=== PATIENT | male | born 1960 ===

== ENCOUNTER 2021-07-27 02:18 | Inpatient (IN) | payer OTHER, MEDICAID, SELFPAY ==
[2021-07-27] VITALS (15 sets, daily range): BP systolic 115–186; BP diastolic 52–92; PULSE 72–112; RESP 16–30; TEMP 36.4–37.2; O2SAT 93–98; BMI 27.6
--- NOTE | 2021-07-27 | ECG_ITS ---
Test Reason : CHEST PAIN Blood Pressure : / mmHG Vent. Rate : 098 BPM Atrial Rate : 098 BPM P-R Int : 198 ms QRS Dur : 086 ms QT Int : 388 ms P-R-T Axes : 066 060 039 degrees QTc Int : 495 ms Normal sinus rhythm Nonspecific ST abnormality Prolonged QT Abnormal ECG When compared with ECG of 27-JUL-2021 09:31, ST no longer depressed in Inferior leads ST no longer depressed in Anterior leads Referred By: Jasmin Vieyra Electronically Signed By:ROCIO RICE MD
--- NOTE | 2021-07-27 | ECG_ITS ---
Test Reason : RHYTHM CHANGE Blood Pressure : / mmHG Vent. Rate : 111 BPM Atrial Rate : 111 BPM P-R Int : 200 ms QRS Dur : 094 ms QT Int : 378 ms P-R-T Axes : 083 061 044 degrees QTc Int : 514 ms Sinus tachycardia Nonspecific ST abnormality Abnormal ECG When compared with ECG of 27-JUL-2021 03:40, QRS axis Shifted left ST now depressed in Inferior leads ST now depressed in Anterior leads T wave inversion no longer evident in Lateral leads Referred By: Dao Nash Electronically Signed By:ROCIO RICE MD
--- NOTE | ~2021-07-27 | XR_ITS ---
EXAMINATION: XR CHEST CLINICAL INFORMATION: Shortness of breath and cough. COMPARISON: None TECHNIQUE: Frontal view of the chest was obtained. FINDINGS: Cardiac leads overlie the chest. The lungs are well expanded. There is no focal consolidation, edema, or effusion. No pneumothorax. The cardiomediastinal silhouette is within normal limits. No acute osseous abnormality. XR/XR chest 1V IMPRESSION: No acute pulmonary finding.
--- NOTE | ~2021-07-27 | CT_ITS ---
EXAMINATION: CT ANGIOGRAM OF THE CHEST WITH AND WITHOUT CONTRAST (CT PULMONARY ANGIOGRAM FOR PE) CLINICAL INFORMATION: Reason for Exam pain, hypoxia, shortness of breath COMPARISON: Chest x-ray from earlier the same day TECHNIQUE: Prior to contrast administration, noncontrast localization images were obtained. Subsequently, multidetector volumetric imaging was performed from the thoracic inlet to below the diaphragms following the administration of 65 mL Omnipaque 350 intravenous contrast. No contrast reaction reported Sagittal, coronal, and MIP oblique sagittal reformatted images were obtained on the CT workstation, uploaded to PACS, and reviewed. This CT examination was performed using dose optimization techniques as appropriate, variously including the following: *Automated exposure control *Adjustment of mA and/or kV according to patient size (this includes techniques or standardized protocols for targeted exams where dose is matched to indication/reason for exam; i.e. extremities or head) *Use of iterative reconstruction technique Total exam dose-length product 403 mGy-cm FINDINGS: QUALITY OF STUDY/CONTRAST BOLUS: Satisfactory. PULMONARY ARTERIES: No central or segmental pulmonary emboli. Evaluation of the smaller segmental and subsegmental pulmonary arteries is limited due to respiratory motion artifact. No pulmonary embolism is seen. THORACIC AORTA: No aneurysm or dissection. LUNG: Evaluation of the lungs is limited due to artifact from respiratory motion. There is a 8 mm peripheral or subpleural density in the lateral costophrenic sulcus of the right lower lobe questionable for atelectasis versus nodule. PLEURA: No pleural effusion or pneumothorax. MEDIASTINUM: Normal heart size. No pericardial effusion. No hilar or mediastinal lymphadenopathy. No evidence of septal bowing or right heart strain. CHEST WALL/AXILLA: No axillary or internal mammary lymphadenopathy. OSSEOUS STRUCTURES: No acute or suspicious osseous abnormality. UPPER ABDOMEN: Unremarkable. No reflux of contrast into the hepatic veins to suggest elevated right heart pressures. CT/CT angio chest PE protocol IMPRESSION: Limited exam due to artifact from respiratory motion. No large or central pulmonary embolism seen. 8 mm peripheral or subpleural density in the lateral costophrenic sulcus of the right lower lobe, question pulmonary nodule versus atelectasis. Chest CT follow-up should be considered in 6-12 months. VTE: negative
--- NOTE | 2021-07-27 02:53 | ECG_ITS ---
Test Reason : SOB Blood Pressure : / mmHG Vent. Rate : 077 BPM Atrial Rate : 077 BPM P-R Int : 182 ms QRS Dur : 078 ms QT Int : 416 ms P-R-T Axes : 103 114 132 degrees QTc Int : 470 ms Suspect limb lead reversal, interpretation assumes no reversal Poor data quality Normal sinus rhythm Lateral infarct , age undetermined Abnormal ECG No previous ECGs available Please repeat EKG Referred By: Generic ED Physician Electronically Signed By:ROCIO RICE MD
[2021-07-27 04:03] LABS: Basophils Percent Auto 0.1 % (0-2); Eosinophils Absolute Auto 0.2 X10*3/uL (0.0-0.4); Eosinophils Percent Auto 1.9 % (0-4); Hematocrit 42.1 % (42.0-52.0); Hemoglobin 14.3 g/dl (14.0-18.0); Imm Gran Pct Auto 0.9 % (0.0-0.4); Lymphocytes Absolute Auto 1.5 X10*3/uL (1.2-4.9); Lymphocytes Percent Auto 14.5 % (20-40); MANUAL DIFF FLAG NO; Mean Corpuscular Hemoglobin 30.6 pg (27.0-33.0); Mean Platelet Volume 10.2 fL (9.4-12.4); Monocytes Absolute Auto 0.8 X10*3/uL (0.1-1.2); Monocytes Percent Auto 7.2 % (2-11); Neutrophils Percent Auto 75.4 % (45-73); Platelet Count 173 X10*3/uL (160-400); Red Blood Count 4.68 X10*6/uL (4.60-5.80); White Blood Count 10.6 X10*3/uL (4.8-10.8)
[2021-07-27] MEDS: Meclizine HCl 25 MG TABLET PO (04:03)
[2021-07-27 04:17] LABS: Anion Gap 12 (12-20); Blood Urea Nitrogen 21 mg/dL (9-16); Calcium 9.5 mg/dL (8.4-10.2); Carbon Dioxide 26 mmol/L (22-29); Chloride 108 mmol/L (96-108); Creatinine Clr Calc Pharmacy 75.6; Estimated Glomerular Filt Rate > 60; Glucose Random 107 mg/dL (60-115); Potassium 4.7 mmol/L (3.3-5.1); Sodium 141 mmol/L (135-145)
[2021-07-27 04:23] LABS: COVID-19 Test Negative (Negative); IDNOW Serial# 9DD0AD1C
[2021-07-27 04:24] LABS: Troponin-I High Sensitivity 4.2 ng/L (<3.5-35.0)
--- NOTE | 2021-07-27 04:37 | PC.NURSE ---
PT requiring aircraft fuselage framer due to deafness. PT complaining on dizziness, cough, and SOB. PT came into room, unable to sit in bed due to difficulty breathing. PT position of comfort is standing and tripoding over the side of the bed. PT has bilateral wheezing. PT found to be satting at 87% on RA. PT placed on O2 at 4L/min via NC. O2 sat increased to 95%. ED provider informed of PT condition. RT called to bed side.
--- NOTE | 2021-07-27 04:52 | ED_ITS ---
HPI - General Adult General Chief complaint: Dizziness Stated complaint: Cough Time Seen by Provider: 07/27/21 04:35 Source: patient Mode of arrival: EMS Limitations: language barrier (Patient is deaf, instructional design consultant via iPad was used) History of Present Illness HPI narrative: 61-year-old male who presents emergency department for evaluation of dizziness, shortness of breath and cough. The information was very difficult to obtain from the patient since he uses sign language and did not seem to be answering the questions were signed to him by the instructional design consultant. The patient developed a cough last night which is nonproductive. He also developed shortness of breath and dyspnea on exertion last night which got progressively worse. He states that he was feeling dizzy and lightheaded as well. He denied fever or chills. He denied myalgias or arthralgias. He is complaining of severe back pain but cannot localize where his pain is. He cannot sit or lie on the stretcher secondary to his back pain. He insists on standing on the side of the bed holding onto the rail of the stretcher and will not get in the bed. Whenever we try to get him in bed he becomes very agitated. Related Data Allergies Allergy/AdvReac Type Severity Reaction Status Date / Time No Known Allergies Allergy Verified 07/27/21 04:49 Review of Systems Review of Systems: Yes all other systems are reviewed and are negative [facility] Past Medical History [facility] Narrative: Past medical history: None. Past surgical history: None. Social history: He denies tobacco, alcohol and drug use. Physical Exam Vital Signs: Vital Signs: Last Vital Signs Temp 98.1 F 07/27/21 04:27 Pulse 99 07/27/21 07:39 Resp 16 07/27/21 07:39 BP 173/80 H 07/27/21 06:26 Pulse Ox 96 07/27/21 06:26 BMI result Body Mass Index 27.6 Const: Other: Awake, alert, male patient who is standing on the side of the bed, holding onto the railing, appears to be in [id number] respiratory distress, is having difficulty communicating with the instructional design consultant HENMT: Head: Yes normal to inspection, Yes normocephalic and Yes atraumatic Ears: external ears normal General nose exam: Normal external nose present Face and sinus: Yes normal facial exam Mouth: Normal oral and palatal mucosa present Throat: Yes posterior oropharynx normal Eyes: General: appearance normal, both eyes and all related structures Pup ils: Equal, round and reactive pupils present Neck: Neck: Yes normal visual inspection, Yes no lymphadenopathy, Yes trachea midline and Yes supple Chest: Chest palpation & inspection: normal inspection of the chest and normal palpation of entire chest wall Resp: Other: Patient appears to be in [id number]-[id number] respiratory distress, lungs revealed diffuse wheezing with no rales or rhonchi breath sounds are symme tric bilaterally Cardio: Rate: regular rate Rhythm: regular rhythm Heart sounds: S1 normal heart sound present, S2 normal heart sound present and no murmurs GI: Inspection: Yes normal to inspection Palpation (GI): Soft to palpation, nontender and no guarding Auscultation: normal bowel sounds Back/Spine/Pelvis: Other: Patient has diffuse tenderness palpation of his paraspinal muscles in the lumbar sacral area bilaterally Skin: General skin exam: no rashes or lesions noted Neuro: Cranial nerves: Yes CN's II-XII intact bilaterally and Yes Equal, round and reactive pupils present Motor exam (neuro): 5/5 motor strength present throughout Extrem: General: Yes normal to inspection Psych: Other: Patient is oriented to person, he does answer some questions appropriately with the instructional design consultant but does seem to have difficulty communicating with the product owner. Course Course Course Narrative: 61-year-old male patient who is deaf and reports no past medical history through the instructional design consultant presents emergency depar tme for evaluation of cough shortness of breath and dyspnea on exertion that started last night. Also complained of dizziness. Initial and repeat vital signs revealed elevated blood pressure of 173/92 and 186/69, respiratory rate varied from 20-24 breaths per minute, O2 saturation was 94-95% on room air. Patient was afebrile. Lung exam revealed diffuse wheezing with symmetric breath sounds. He also had tenderness palpation of his paraspinal muscles in the lumbar sacral area bilaterally. I ordered an albuterol 2.5 mg per 3 mL nebulizer x1. 0502: Laboratory evaluation revealed a normal CBC, comprehensive metabolic panel revealed an elevated BUN of 21. Troponin was detectable but not elevated at 4.2. COVID-19 was negative. Twelve EKG was done in a sitting position since the patient could not lie down on the stretcher, there was no significant ST segment elevation or depression. The patient did seem to improve after receiving an albuterol nebulizer. 0725: I re-evaluated the patient using the fire adjuster. The patient states he did feel better but his breathing difficulties returning. On re-evaluation the patient is wheezing again. He was ordered to get albuterol 5 mg nebulized over 1 hour. The radiologist interpreted the chest x-ray is no acute disease, and my review of the x-ray I am concerned that he may have a left lower lobe infiltrate therefore I will treat him with ceftriaxone 1 g IV and azithromycin 500 mg IV. I will discuss admission with the covering hospitalist. 0804: I did discuss the patient's presentation with the covering hospitalist, Dr. Land and the patient will be admitted to the hospital service for further treatment. Patient's initial troponin was detectable but not elevated, I will repeat a 3 hour troponin now. Medical Decision Making Lab Data Result diagrams: 07/27/21 03:54 07/27/21 03:54 Labs: Lab Results 07/27/21 07/27/21 07/27/21 Range/Units 03:46 03:54 03:54 WBC 10.6 (4.8-10.8) X10*3/uL RBC 4.68 (4.60-5.80) X10*6/uL Hgb 14.3 (14.0-18.0) g/dl Hct 42.1 (42.0-52.0) % MCV 90.0 (80.0-98.0) fL MCH 30.6 (27.0-33.0) pg MCHC 34.0 (31.0-36.0) g/dl RDW 13.0 (11.0-16.0) % Plt Count 173 (160-400) X10*3/uL MPV 10.2 (9.4-12.4) fL Immature Gran % (Auto) 0.9 H (0.0-0.4) % Neut % (Auto) 75.4 H (45-73) % Lymph % (Auto) 14.5 L (20-40) % Garrett % (Auto) 7.2 (2-11) % Eos % (Auto) 1.9 (0-4) % Baso % (Auto) 0.1 (0-2) % Lymph # (Auto) 1.5 (1.2-4.9) X10*3/uL Garrett # (Auto) 0.8 (0.1-1.2) X10*3/uL Eos # (Auto) 0.2 (0.0-0.4) X10*3/uL Baso # (Auto) 0.0 (0.0-0.2) X10*3/uL Abs Immat Gran (auto) 0.10 H (0.00-0.03) X10*3/uL Absolute Neuts (auto) 8.0 (2.0-8.3) x10*3/uL Absolute Nucleated RBC 0.000 (0.0-0.012) X10*3/uL Nucleated RBC % (auto) 0.0 (0.0-0.2) /100WBC VBG pH (7.32-7.43) VBG pCO2 mmHg VBG pO2 mmHg VBG HCO3 (22-26) mmol/L VBG O2 Saturation % VBG Base Excess mmol/L Sodium 141 (135-145) mmol/L Potassium 4.7 (3.3-5.1) mmol/L Chloride 108 (96-108) mmol/L Carbon Dioxide 26 (22-29) mmol/L Anion Gap 12 (12-20) BUN 21 H (9-16) mg/dL Creatinine 1.00 (0.5-1.4) mg/dL Estim Creat Clear Calc 75.6 Estimated GFR > 60 Random Glucose 107 (60-115) mg/dL Lactic Acid (0.5-2.0) mmol/L Calcium 9.5 (8.4-10.2) mg/dL Troponin I High Sens (<3.5-35.0) ng/L B-Natriuretic Peptide (<100) pg/mL COVID-19 ([facility]) Negative (Negative) COVID-19 Clin Com See Note 07/27/21 07/27/21 07/27/21 Range/Units 03:54 04:54 05:02 WBC (4.8-10.8) X10*3/uL RBC (4.60-5.80) X10*6/uL Hgb (14.0-18.0) g/dl Hct (42.0-52.0) % MCV (80.0-98.0) fL MCH (27.0-33.0) pg MCHC (31.0-36.0) g/dl RDW (11.0-16.0) % Plt Count (160-400) X10*3/uL MPV (9.4-12.4) fL Immature Gran % (Auto) (0.0-0.4) % Neut % (Auto) (45-73) % Lymph % (Auto) (20-40) % Garrett % (Auto) (2-11) % Eos % (Auto) (0-4) % Baso % (Auto) (0-2) % Lymph # (Auto) (1.2-4.9) X10*3/uL Garrett # (Auto) (0.1-1.2) X10*3/uL Eos # (Auto) (0.0-0.4) X10*3/uL Baso # (Auto) (0.0-0.2) X10*3/uL Abs Immat Gran (auto) (0.00-0.03) X10*3/uL Absolute Neuts (auto) (2.0-8.3) x10*3/uL Absolute Nucleated RBC (0.0-0.012) X10*3/uL Nucleated RBC % (auto) (0.0-0.2) /100WBC VBG pH (7.32-7.43) VBG pCO2 mmHg VBG pO2 mmHg VBG HCO3 (22-26) mmol/L VBG O2 Saturation % VBG Base Excess mmol/L Sodium (135-145) mmol/L Potassium (3.3-5.1) mmol/L Chloride (96-108) mmol/L Carbon Dioxide (22-29) mmol/L Anion Gap (12-20) BUN (9-16) mg/dL Creatinine (0.5-1.4) mg/dL Estim Creat Clear Calc Estimated GFR Random Glucose (60-115) mg/dL Lactic Acid 1.2 (0.5-2.0) mmol/L Calcium (8.4-10.2) mg/dL Troponin I High Sens 4.2 (<3.5-35.0) ng/L B-Natriuretic Peptide 36 (<100) pg/mL COVID-19 ([facility]) (Negative) COVID-19 Clin Com 07/27/21 Range/Units 06:25 WBC (4.8-10.8) X10*3/uL RBC (4.60-5.80) X10*6/uL Hgb (14.0-18.0) g/dl Hct (42.0-52.0) % MCV (80.0-98.0) fL MCH (27.0-33.0) pg MCHC (31.0-36.0) g/dl RDW (11.0-16.0) % Plt Count (160-400) X10*3/uL MPV (9.4-12.4) fL Immature Gran % (Auto) (0.0-0.4) % Neut % (Auto) (45-73) % Lymph % (Auto) (20-40) % Garrett % (Auto) (2-11) % Eos % (Auto) (0-4) % Baso % (Auto) (0-2) % Lymph # (Auto) (1.2-4.9) X10*3/uL Garrett # (Auto) (0.1-1.2) X10*3/uL Eos # (Auto) (0.0-0.4) X10*3/uL Baso # (Auto) (0.0-0.2) X10*3/uL Abs Immat Gran (auto) (0.00-0.03) X10*3/uL Absolute Neuts (auto) (2.0-8.3) x10*3/uL Absolute Nucleated RBC (0.0-0.012) X10*3/uL Nucleated RBC % (auto) (0.0-0.2) /100WBC VBG pH 7.35 (7.32-7.43) VBG pCO2 43 mmHg VBG pO2 60 mmHg VBG HCO3 24 (22-26) mmol/L VBG O2 Saturation 85.0 % VBG Base Excess -1.2 mmol/L Sodium (135-145) mmol/L Potassium (3.3-5.1) mmol/L Chloride (96-108) mmol/L Carbon Dioxide (22-29) mmol/L Anion Gap (12-20) BUN (9-16) mg/dL Creatinine (0.5-1.4) mg/dL Estim Creat Clear Calc Estimated GFR Random Glucose (60-115) mg/dL Lactic Acid (0.5-2.0) mmol/L Calcium (8.4-10.2) mg/dL Troponin I High Sens (<3.5-35.0) ng/L B-Natriuretic Peptide (<100) pg/mL COVID-19 ([facility]) (Negative) COVID-19 Clin Com ECG Data Attestation: I personally reviewed and interpreted this ECG as follows: Interpretation: Normal sinus rhythm with a rate of 77, normal [place], QRS and QTC durations, inverted T-wave in lead 1 and aVL, no ST segment elevation, no ST segment depression, no PACs, no PVCs, there is a wandering baseline which makes the EKG interpretation slightly difficult. There is no old EKG for comparison. Critical Care Time Critical Care Time Critical Care Time: Yes Total Critical Care Time: 35 Attestation: Critical Care: The patient was critically ill with a high probability of imminent or life threatening deterioration. I spent greater than 30 minutes of discontinuous time evaluating the patient,delivering critical care at the bedside, discussing and evaluating pertinent data with consultants. Critical care time does not include time spent performing separately billable procedures or teaching. Total time spent performing critical care was 35 minutes. Discharge Plan Discharge Clinical Impression: Pneumonia, Acute bronchospasm Patient Disposition: Admitted As Inpatient
[2021-07-27] MEDS: Albuterol Sulfate (0.083%) 2.5 MG/3 ML VIAL.NEB INHALE (04:57)
[2021-07-27] MEDS: methylPREDNISolone Sod Succ 125 MG/2 ML VIAL IVPUSH (05:11)
[2021-07-27] MEDS: Ketorolac Tromethamine 30 MG/ML VIAL 15 MG IVPUSH (05:11)
[2021-07-27 05:19] LABS: Lactic Acid 1.2 mmol/L (0.5-2.0)
[2021-07-27 05:29] LABS: B Type Natriuretic Peptide 36 pg/mL (<100)
[2021-07-27 06:31] LABS: Venous Blood Gas Refer to POC result
[2021-07-27 06:32] LABS: VBG Base Excess -1.2 mmol/L; VBG HCO3 24 mmol/L (22-26); VBG pCO2 43 mmHg; VBG pH 7.35 (7.32-7.43); VBG pO2 60 mmHg
--- NOTE | 2021-07-27 06:32 | PC.NURSE ---
This RN is speaking with the PT through mapping specialist and PT stated that he takes no daily meds, has no past medical history, and does not have any allergies.
[2021-07-27] MEDS: Albuterol/Iprat 2.5/0.5MG 3 ML AMPUL.NEB INHALE (06:38)
[2021-07-27] MEDS: Albuterol Sulfate (0.083%) 2.5 MG/3 ML VIAL.NEB 7.5 MG INHALE (07:39)
[2021-07-27] MEDS: cefTRIAXone sodium 1 GM in 0.9 % Sodium Chloride 50 ML IV (08:17)
[2021-07-27 08:55] LABS: Troponin-I High Sensitivity 5.5 ng/L (<3.5-35.0)
--- NOTE | 2021-07-27 09:24 | PM.IMHP ---
History of Present Illness Date of Service: 07/27/21 Chief Complaint: Cough, shortness of breath, pain This is a 61 yo deaf M (uses [place] Sign language, iPad used for translation purposes) who presents to [facility] ED with complaints of shortness of breath, coughing and pleuritic (bilateral) chest pain worsened with cough and deep inspiration, which began on the evening prior to presentation. He reports that he was in his usual state of health during the day time but began feeling the symptoms which progressed significantly and so he came to the ED. He reports no fevers or chills. He reports no sick contacts -- COVID or otherwise. He reports being vaccinated for COVID (2 shots + the booster). He reports some abdominal pain which began after his cough spells and now he endorses severe sore throat. He denies any prior such symptoms. He reports that he is a life long non-smoker. Upon arrival to the ED, he was noted to have diffuse wheezing and tachycardia. His oxygen saturation dropped to 87% on RA. He was treated with multiple continuous nebulizer Rx, IV solu-medrol, IV toradol. His chest XR did not show any acute findings, but the patient did not have resolution of his symptoms. The possibility of a LLL infiltrate was noted by the ED provider and he was subsequently given IV Rocephin/Zithromax and admission was requested. Review of Systems Review of Systems: negative except [facility] Medical History (Updated 07/27/21 @ 12:00 by Dao Nash MD) No pertinent past medical history Family History (Updated 07/27/21 @ 09:30 by Dao Nash MD) Other No known health problems Surgical History (Updated 07/27/21 @ 09:30 by Dao Nash MD) H/O cervical spine surgery Social History (Updated 07/27/21 @ 09:30 by Dao Nash MD) Alcohol intake: never Patient Tobacco Use Status: Never used Tobacco Use of substances other than those prescribed or required for medical reasons: No Advance Directives: No Advance Directives Information Provided: No Meds Allergies Allergy/AdvReac Type Severity Reaction Status Date / Time No Known Allergies Allergy Verified 07/27/21 04:49 Active Medications: Current Medications Acetaminophen (Acetaminophen 325 Mg Tablet) 650 mg PO Q6H PRN PRN Reason: Pain, Mild (Pain Scale 1-3) Enoxaparin Sodium (Enoxaparin Sodium 40 Mg/0.4 Ml Syringe) 40 mg SUBCUT Q24H DAVID Ondansetron HCl (Ondansetron Hcl 4 Mg/2 Ml Vial) 4 mg IVPUSH Q8H PRN PRN Reason: Nausea and Vomiting Sodium Chloride (0.9 % Sodium Chloride Flush 3 Ml Syringe) 3 ml IVFLUSH QSHIFT DAVID Physical Exam Vital Signs and Narrative: Vital Signs: Last Vital Signs Temp 98.1 F 07/27/21 04:27 Pulse 112 H 07/27/21 08:21 Resp 18 07/27/21 08:21 BP 173/80 H 07/27/21 06:26 Pulse Ox 96 07/27/21 08:21 BMI result Body Mass Index 27.6 Const: Other: Constitutional - Awake and Alert, appears to be in pain Eyes - PERRLA, EOMI Cardiovascular - S1S2, tachycardic (appears sinus on the monitor) in the 120s, No edema Respiratory - No tachypnea, scattered wheezing with diminished air entry bilaterally Gastrointestinal - NT / ND; +BS; No rebound or guarding - No CVA tenderness Extremities - no calf tenderness bilaterally, no swelling Musculoskeletal - Normal inspection, normal ROM Skin - Warm/Dry Neurological - Alert & oriented x3, No focal deficit Psychological - Appropriate affect Results Labs CBC and Chem 7: 07/27/21 03:54 07/27/21 03:54 Labs: Laboratory Results - last 24 hr 07/27/21 07/27/21 07/27/21 03:46 03:54 03:54 MCV 90.0 MCH 30.6 MCHC 34.0 RDW 13.0 Plt Count 173 MPV 10.2 Immature Gran % (Auto) 0.9 H Neut % (Auto) 75.4 H Lymph % (Auto) 14.5 L [place] % (Auto) 7.2 Eos % (Auto) 1.9 Baso % (Auto) 0.1 Lymph # (Auto) 1.5 [place] # (Auto) 0.8 Eos # (Auto) 0.2 Baso # (Auto) 0.0 Abs Immat Gran (auto) 0.10 H Absolute Neuts (auto) 8.0 Absolute Nucleated RBC 0.000 Nucleated RBC % (auto) 0.0 VBG pH VBG pCO2 VBG pO2 VBG HCO3 VBG O2 Saturation VBG Base Excess Anion Gap 12 Estim Creat Clear Calc 75.6 Estimated GFR > 60 Random Glucose 107 Lactic Acid Calcium 9.5 Troponin I High Sens B-Natriuretic Peptide COVID-19 ([facility]) Negative COVID-19 Clin Com See Note 07/27/21 07/27/21 07/27/21 03:54 04:54 05:02 MCV MCH MCHC RDW Plt Count MPV Immature Gran % (Auto) Neut % (Auto) Lymph % (Auto) [place] % (Auto) Eos % (Auto) Baso % (Auto) Lymph # (Auto) [place] # (Auto) Eos # (Auto) Baso # (Auto) Abs Immat Gran (auto) Absolute Neuts (auto) Absolute Nucleated RBC Nucleated RBC % (auto) VBG pH VBG pCO2 VBG pO2 VBG HCO3 VBG O2 Saturation VBG Base Excess Anion Gap Estim Creat Clear Calc Estimated GFR Random Glucose Lactic Acid 1.2 Calcium Troponin I High Sens 4.2 B-Natriuretic Peptide 36 COVID-19 ([facility]) COVID-[employer] Com 07/27/21 07/27/21 06:25 08:23 MCV MCH MCHC RDW Plt Count MPV Immature Gran % (Auto) Neut % (Auto) Lymph % (Auto) [place] % (Auto) Eos % (Auto) Baso % (Auto) Lymph # (Auto) [place] # (Auto) Eos # (Auto) Baso # (Auto) Abs Immat Gran (auto) Absolute Neuts (auto) Absolute Nucleated RBC Nucleated RBC % (auto) VBG pH 7.35 VBG pCO2 43 VBG pO2 60 VBG HCO3 24 VBG O2 Saturation 85.0 VBG Base Excess -1.2 Anion Gap Estim Creat Clear Calc Estimated GFR Random Glucose Lactic Acid Calcium Troponin I High Sens 5.5 B-Natriuretic Peptide COVID-19 ([facility]) COVID-19 [employer] Com Imaging Radiologist's Impressions: Impressions Chest X-Ray 07/27/21 05:26 IMPRESSION: No acute pulmonary finding. Assessment and Plan (1) Acute respiratory failure with hypoxia: Status: Acute This is a 61 yo M with no significant PMH who presents to [facility] ED with respiratory complaints which began on the day prior to arrival. He is noted to be tachycardic, hypoxic with scattered wheezing. He will be admitted for further work up and treatment. 1. Acute Respiratory Failure with hypoxia Saturations down to 87% on Room Air in the ED; now in the 90s on supplemental O2 via NC cause not entire clear -- work up started. Will check CTA chest -- rule out PE and see if any findings to suggest pneumonia --> negative Will start IV solu-medrol 40mg BID, scheduled updrafts (will use xopenex in light of tachycardia). Check respiratory pathogen panel. 2. Possible pneumonia CXR inconclusive, CTA poor quality, but no major infiltrates identified hold off on antibiotics for now Nodule noted on CT -- repeat CT recommended in 6-12 months 3. Plueritic chest pain pain control and look for the cause as above 4. Abnormal EKG ST/T wave depressions in the anterior/inferior leads; no prior EKG for comparison. He denies anginal type of chest pain HS trop-I negative x 2; Will check 2d echo and get cardiology consult Full Code Reports his sister as healthcare proxy Quality Stroke Does the patient have a stroke diagnosis?: No VTE Prior VTE?: No VTE Risk Level:: Medical - moderate - high VTE Device Contraindication: Treatment Not Indicated VTE Drug Contraindication: N/A - Med Ordered
[2021-07-27 09:46] LABS: Adenovirus PCR Not Detected (Not Detect.); Bordetella parapertussis PCR Not Detected (Not Detect.); Bordetella pertussis PCR Not Detected (Not Detect.); Chlamydia pneumoniae PCR Not Detected (Not Detect.); Coronavirus 229E PCR Not Detected (Not Detect.); Coronavirus HKU1 PCR Not Detected (Not Detect.); Coronavirus NL63 PCR Not Detected (Not Detect.); Coronavirus OC43 PCR Not Detected (Not Detect.); Human metapneumovirus PCR Not Detected (Not Detect.); Influenza A PCR Not Detected (Not Detect.); Influenza B PCR Not Detected (Not Detect.); Mycoplasma pneumoniae PCR Not Detected (Not Detect.); Parainfluenza 1 PCR Not Detected (Not Detect.); Parainfluenza 2 PCR Not Detected (Not Detect.); Parainfluenza 3 PCR Not Detected (Not Detect.); Parainfluenza 4 PCR Not Detected (Not Detect.); RSV PCR Not Detected (Not Detect.); SARS-CoV-2 PCR Not Detected (Not Detect.)
--- NOTE | 2021-07-27 11:00 | CA_ITS ---
Transthoracic Echocardiogram Patient (Last, First, Middle): Jacob Angelse, Gender: Male Date of : 1960 Age: 61 Procedure Date: 07/27/2021 Procedure Type: Transthoracic Echocardiogram Location: ER Height: 175.26 cm Weight: 84.82 kg BSA: 2.01 m2 Heart Rate: bpm BP: 129 / 60 mmHg Equal Opportunity Director: Referring MD: Dao Nash MD Vocational Education Professional: Иван Lindquist MD Symptoms: abnormal ekg Study Quality: Fair ECG Rhythm: Sinus Conclusions: - 1. Hyperdynamic LV systolic function with LVEF of greater than 70% 2. Cardiac valves not well visualized with normal cardiac valvular Doppler 3. No gross pericardial effusion Findings Left Ventricle Normal left ventricular cavity size. There is normal left ventricular wall thickness. The left ventricular systolic function is hyperdynamic. The visually estimated ejection fraction is >70%. Diastolic function is indeterminate on the basis of available data. possible apical variant of hypertrophic cardiomyopathy Right Ventricle Normal right ventricular cavity size. Atria The left atrium is normal in size. Interatrial shunt cannot be excluded. The right atrium was not well visualized. Aortic Valve The aortic valve was not well visualized. There is no aortic valve stenosis. There is no aortic valve regurgitation. Mitral Valve The mitral valve was not well visualized. There is trace mitral valve regurgitation. There is no mitral valve stenosis. Pulmonic Valve The pulmonic valve was not well visualized. Tricuspid Valve The tricuspid valve was not well visualized. Tricuspid regurgitation envelope is inadequate for calculation of right ventricular systolic pressure. Great Vessels All visible segments of the aorta are normal in size. The pulmonary artery was not well visualized. Venous The inferior vena cava is normal in size and collapses greater than 50% with inspiration. Pericardium/Pleural There is no evidence of pericardial effusion. Prior Study Comparison No prior study available for comparison. Recommendations, Care & Conclusions Recommend contrast in the future to improve endocardial definition. Measurements 2D Linear Measurements IVSd: 1.12 0.6-0.9/0.6-1.0 cm LVIDd: 4.09 3.9-5.3/4.2-5.9 cm LVIDd Index: 2.03 2.4-3.2/2.2-3.1 cm/m2 LVIDs: 2.57 2.0-3.6 cm LVPWd: 1.12 0.7-1.1 cm Ao Root: 2.50 2.1-3.5 cm LA Diam: 3.20 2.7-3.8/3.0-4.0 cm LAIDs Index: 1.59 1.5-2.3 cm/m2 LV Mass: 192.63 67-162/88-224 g LV Mass Index: 95.83 43-95/49-115 g/m2 LVOT Diam: 1.90 3.0+(-)1.3 cm Mitral Valve MV Pk E: 1.29 MV PK A: 0.35 MV Decel Time: 148.00 E/A: 3.70 E'Lateral: 20.60 E'Medial: 21.60 E/E' Med: 6.00 E/E' Lat: 6.30 PHT: 43.00 MVA PHT: 5.12 Decel Gilpin: 8.66 Aortic Valve AoV Pk Francisco: 2.08 AoV Mn Francisco: 1.33 AoV VTI: 0.30 AoV Pk Grad: 17.00 Aov Mn Grad: 9.00 BEN Cont.VTI: 2.18 LVOT LVOT Pk Francisco: 1.42 LVOT Mn Francisco: 0.97 LVOT VTI: 0.23 LVOT Pk Grad: 8.00 LVOT Mn Grad: 4.00 LVOT Diam: 1.90 LVOT Area: 2.84 Diastolic Function MV Pk E: 1.29 MV Pk A: 0.35 E/A: 3.70 E'Medial: 21.60 E/E' Med: 6.00 E' Laterial: 20.60 E/E' Lat: 6.30 Tricuspid Valve TR Pk Francisco: 1.87 TR Pk Grad: 14.00 Great Vessels Aorta Ao Root-2D: 2.50 2.0-3.7 cm Ao Asc: 2.50 2.1-3.4 cm Ao Arch: 2.30 Pulmonary Valve PV Pk Francisco: 1.37 Peak PV Grad: 8.00 Updated in Other Vendor System with Status of Final Иван Lindquist MD electronically signed on 07/27/2021 1:52:49 PM with status of Final
[2021-07-27] MEDS: iohexoL 350 MG/ML 100 ML INFUS..BTL IV (11:05)
[2021-07-27 12:01] LABS: Rhino/Enterovirus PCR Detected (Not Detect.)
[2021-07-27] MEDS: Ipratropium Bromide 0.5 MG/2.5 ML SOLUTION INHALE ×3 (12:11→20:23)
[2021-07-27 14:05] LABS: Troponin-I High Sensitivity 89.2 ng/L (<3.5-35.0)
--- NOTE | 2021-07-27 14:17 | PHA.MEDREC ---
Pharmacy Consult ? Medication Reconciliation Pharmacy has completed the medication reconciliation. Patient hasn't taken meds since he got sick roughly 1 week ago.
[2021-07-27] MEDS: Azithromycin 500 MG in 0.9 % Sodium Chloride 250 ML 125 MG IV (14:25)
[2021-07-27] MEDS: Aspirin 325 MG TABLET PO (14:26)
[2021-07-27] MEDS: Mag&Al/Sim/Diphenhyd/Lidocaine 10 ML ORAL.SUSP PO (14:32)
[2021-07-27] MEDS: Lactated Ringers 1,000 ML 100 ML IVCONT (14:32)
[2021-07-27] MEDS: Enoxaparin Sodium 100 MG/ML SYRINGE 85 MG SUBCUT (16:45)
[2021-07-27 16:47] LABS: Prothrombin Time 11.5 SEC (9.9-13.0)
[2021-07-27 16:49] LABS: Partial Thromboplastin Time 33.1 SEC (24.1-38.0)
[2021-07-27 17:10] LABS: Troponin-I High Sensitivity 108.5 ng/L (<3.5-35.0)
[2021-07-27] MEDS: Morphine Sulfate 4 MG/ML CARTRIDGE IVPUSH (21:06)
[2021-07-27] MEDS: methylPREDNISolone Sod Succ 125 MG/2 ML VIAL 60 MG IVPUSH (21:10)
[2021-07-27] MEDS: Magnesium Hydrox/Alum Hydrox 30 ML ORAL.SUSP PO (21:11)
[2021-07-27] MEDS: Atorvastatin Calcium 40 MG TABLET PO (21:12)
--- NOTE | 2021-07-27 21:52 | PC.NURSE ---
1999 Pt c/o burning epigastric pain radiating to chest. Dr. Cardona made aware of pt's pain and elevated trop. Per Dr. Vieyra, repeat EKG and trop. Phlebotomy called for repeat trop and in tube conversion technician repeating EKG
--- NOTE | 2021-07-27 21:53 | PC.NURSE ---
2109 Pt medicated per OCT Pt tolerated well Will continue to monitor
--- NOTE | 2021-07-27 21:54 | PC.NURSE ---
Pt currently resting on stretcher with eyes closed Breathing even and unlabored NSR on monitor with HR 80s Will continue to monitor
--- NOTE | 2021-07-27 22:17 | PM.EVENT ---
Event Note Date of Service: 07/27/21 Event Note: Patient complaining of epigastric burning pain, obtained stat EKG given the EKG changes from admission as well as elevated troponin, troponin has increased from 109-217, EKG shows nonspecific ST abnormality. Contacted Cardiology which recommended starting heparin drip and trending troponin.
[2021-07-27 22:42] LABS: Hematocrit 37.9 % (42.0-52.0); Hemoglobin 12.7 g/dl (14.0-18.0); Mean Corpuscular HGB Conc 33.5 g/dl (31.0-36.0); Mean Corpuscular Hemoglobin 30.1 pg (27.0-33.0); Mean Corpuscular Volume 89.8 fL (80.0-98.0); Mean Platelet Volume 10.4 fL (9.4-12.4); Platelet Count 171 X10*3/uL (160-400); Red Blood Count 4.22 X10*6/uL (4.60-5.80); Red Cell Distribution Width 13.4 % (11.0-16.0); White Blood Count 16.9 X10*3/uL (4.8-10.8)
[2021-07-27 22:54] LABS: Prothrombin Time 11.8 SEC (9.9-13.0)
[2021-07-27 22:56] LABS: PTT Heparin Drip 42.4 SEC (53-77.9)
[2021-07-28] VITALS (9 sets, daily range): BP systolic 120–149; BP diastolic 54–74; PULSE 67–94; RESP 14–221; TEMP 36.3–36.9; O2SAT 93–99
[2021-07-28] MEDS: Heparin Sodium,Porcine/1/2NS 25,000 UNIT/250 ML IV.SOLN 11.88 UNIT IVCONT (03:32)
--- NOTE | 2021-07-28 03:34 | PC.NURSE ---
Pt resting on stretcher on his side Heparin gtt started No visible bleeding or bruising No apparent distress Will continue to monitor
[2021-07-28] MEDS: Morphine Sulfate 2 MG/ML CARTRIDGE IVPUSH ×3 (04:39→15:13)
[2021-07-28] MEDS: Lactated Ringers 1,000 ML 100 ML IVCONT (04:44)
[2021-07-28] MEDS: Magnesium Hydrox/Alum Hydrox 30 ML ORAL.SUSP PO (05:15)
--- NOTE | 2021-07-28 05:16 | PC.NURSE ---
Pt c/o burning epigastric pain. Pt medicated with morphine with no relief. Pt medicated with Malox Will continue to monitor
--- NOTE | 2021-07-28 05:22 | PC.NURSE ---
Trop = 329 Dr. Vieyra made aware No new orders
[2021-07-28 05:40] LABS: Hematocrit 35.1 % (42.0-52.0); Hemoglobin 11.8 g/dl (14.0-18.0); Mean Corpuscular HGB Conc 33.6 g/dl (31.0-36.0); Mean Corpuscular Hemoglobin 30.5 pg (27.0-33.0); Mean Corpuscular Volume 90.7 fL (80.0-98.0); Mean Platelet Volume 10.8 fL (9.4-12.4); Platelet Count 169 X10*3/uL (160-400); Red Blood Count 3.87 X10*6/uL (4.60-5.80); Red Cell Distribution Width 13.5 % (11.0-16.0); White Blood Count 15.4 X10*3/uL (4.8-10.8)
[2021-07-28 05:56] LABS: Anion Gap 12 (12-20); Blood Urea Nitrogen 24 mg/dL (9-16); Carbon Dioxide 23 mmol/L (22-29); Chloride 109 mmol/L (96-108); Cholesterol 112 mg/dL; Creatinine Clr Calc Pharmacy 86.9; Estimated Glomerular Filt Rate > 60; Glucose Random 110 mg/dL (60-115); HDL Cholesterol 32 mg/dL; LDL Cholesterol Calculated 68 mg/dl; Potassium 4.2 mmol/L (3.3-5.1); Sodium 140 mmol/L (135-145); Triglycerides 64 mg/dL
[2021-07-28 08:50] LABS: PTT Heparin Drip 76.6 SEC (53-77.9)
[2021-07-28 09:19] LABS: Troponin-I High Sensitivity 293.7 ng/L (<3.5-35.0)
[2021-07-28] MEDS: methylPREDNISolone Sod Succ 125 MG/2 ML VIAL 60 MG IVPUSH ×2 (10:12→20:55)
[2021-07-28] MEDS: Famotidine/PF 20 MG/2 ML VIAL IVPUSH (10:12)
[2021-07-28] MEDS: Aspirin 81 MG TAB.CHEW PO (10:12)
[2021-07-28] MEDS: guaiFENesin DM 100/10/5 ML 5 ML SYRUP PO ×3 (10:12→21:00)
--- NOTE | 2021-07-28 10:55 | PM.CNCAR ---
History of Present Illness History of Present Illness Date of Service: 07/28/21 Requesting physician: Ligia Mckinley Chief complaint: Acute coronary syndrome Narrative: I was consulted to see Jacob in cardiology consultation today for abnormal EKG in rising troponins. History was obtained with help of for certified translator and interpreter through video conferencing. Patient came to the hospital with worsening shortness of breath, acute bronchospasm and diffuse pleuritic discomfort. He continues to have discomfort with coughing and is very distressed by it. He had initial EKG which was poor quality. Subsequent EKG however shows diffuse ST T wave changes. He did not have any significant discomfort yesterday his troponins were mildly elevated and is being managed. Echocardiogram done at bedside was of poor quality showed normal LV systolic function with possible apical hypertrophic cardiomyopathy. Her subsequently in a night he developed epigastric discomfort which appears to be different than his pleuritic pain. However this is difficult to determine. His troponin continued to rise and Cardiology was called overnight. Restart him on IV heparin drip at that point in time. He continues to pleuritic discomfort. He is not having much epigastric discomfort however he does not completely denied. Continues to be short of breath. Continues to PVC. Currently getting treatment for his acute bronchospasm and acute respiratory failure with hypoxia. Unclear etiology but appears to be significant bronchitis. He denies any prior history of heart issues, hypertension, diabetes, asthma. He does not smoke. He is currently visiting his sister Review of Systems Constitutional: Constitutional: Reports no additional constitutional complaints Eyes: Eyes: Reports no additional eye complaints Cardiovascular: Cardiovascular: Reports epigastric discomfort, Denies lightheadedness, Denies Loss of Consciousness and Reports dyspnea on exertion Respiratory: Respiratory: Reports cough, Reports pain on inspiration, Reports pain with cough, Reports dyspnea on exertion and Reports wheezing Gastrointestinal: Gastrointestinal: Reports no additional gastrointestinal complaints Genitourinary: Genitourinary: Reports no additional male genitourinary complaints Musculoskeletal: Musculoskeletal: Reports no additional musculoskeletal complaints Integumentary/Breasts: Skin/Breast: Reports system reviewed and no additional complaints, except as docu Neurologic: Reports system reviewed and no additional complaints, except as documented Psychiatric: Psychiatric: Reports no additional psychiatric complaints Endocrine: Endocrine: Reports no additional endocrine complaints Hematologic/Lymphatic: Hematologic/Lymphatic: Reports no additional hematologic/lymphatic complaints Allergic/Immunologic: Allergic/Immunologic: Reports wheezing PMFSH Past Medical History Medical History No pertinent past medical history Family History Family History Other No known health problems Surgical History Surgical History H/O cervical spine surgery Social History Social History Alcohol intake: never Patient Tobacco Use Status: Never used Tobacco Use of substances other than those prescribed or required for medical reasons: No Advance Directives: No Advance Directives Information Provided: No Meds Allergies Allergy/AdvReac Type Severity Reaction Status Date / Time No Known Allergies Allergy Verified 07/27/21 04:49 Active Medications: Current Medications Acetaminophen (Acetaminophen 325 Mg Tablet) 650 mg PO Q6H PRN PRN Reason: Pain, Mild (Pain Scale 1-3) Al Hydroxide/Mg Hydroxide (Magnesium Hydrox/Alum Hydrox 30 Ml Oral.Susp) 30 ml PO Q4H PRN PRN Reason: Heartburn Last Admin: 07/28/21 05:15 Dose: 30 ml Documented by: Aspirin (Aspirin 81 Mg Tab.Chew) 81 mg PO DAILY [facility] Last Admin: 07/28/21 10:12 Dose: 81 mg Documented by: Atorvastatin Calcium (Atorvastatin Calcium 40 Mg Tablet) 40 mg PO BEDTIME DAVID Last Admin: 07/27/21 21:12 Dose: 40 mg Documented by: Famotidine (Famotidine/Pf 20 Mg/2 Ml Vial) 20 mg IVPUSH DAILY [facility] Last Admin: 07/28/21 10:12 Dose: 20 mg Documented by: Guaifenesin/Dextromethorphan (Guaifenesin Dm 100/10/5 Ml 5 Ml Syrup) 5 ml PO Q6H DAVID Last Admin: 07/28/21 10:12 Dose: 5 ml Documented by: Heparin Sodium (Porcine) (Heparin Sodium,Porcine 5,000 Unit/Ml Vial) 3,400 unit 40 unit/kg (3400 unit) IVPUSH PROTOCOL BOLUS PRN; Protocol PRN Reason: 40 unit/kg - Heparin Protocol Heparin Sodium (Porcine) (Heparin Sodium,Porcine 5,000 Unit/Ml Vial) 6,800 unit 80 unit/kg (6800 unit) IVPUSH PROTOCOL BOLUS PRN; Protocol PRN Reason: 80 unit/kg - Heparin Protocol Heparin Sodium/Sodium Chloride () 25,000 unit in 250 mls @ 0 mls/hr IVCONT .Q0M [facility]; Protocol Last Titration: 07/28/21 10:20 Dose: 14 units/kg/hr, 11.88 mls/hr Documented by: Ipratropium [place] Pos (Ipratropium [place] Pos 0.5 Mg/2.5 Ml Solution) 0.5 mg INHALE RQ4H WHILE AWAKE [facility] Last Admin: 07/28/21 08:28 Dose: Not Given Documented by: Levalbuterol HCl (Levalbuterol Hcl 1.25 Mg/0.5 Ml Vial.Neb) 1.25 mg INHALE RQ4H WHILE AWAKE [facility] Last Admin: 07/28/21 08:27 Dose: 1.25 mg Documented by: Methylprednisolone Sodium Succinate (Methylprednisolone Sod Succ 125 Mg/2 Ml Vial) 60 mg IVPUSH Q12H [facility] Last Admin: 07/28/21 10:12 Dose: 60 mg Documented by: Morphine Sulfate (Morphine Sulfate 2 Mg/Ml Cartridge) 2 mg IVPUSH Q4H PRN; Protocol PRN Reason: Pain, Severe (Pain Scale 7-10) Last Admin: 07/28/21 10:13 Dose: 2 mg Documented by: Nitroglycerin (Nitroglycerin 2 % Oint 1 Gm Packet) 0.5 inch TRANSDERMA RQ6H WHILE AWAKE [facility] Ondansetron HCl (Ondansetron Hcl 4 Mg/2 Ml Vial) 4 mg IVPUSH Q8H PRN PRN Reason: Nausea and Vomiting Pharmacy Consult (Consult Rx Perform Med Rec) 1 each MISCELLANE ONCE PRN PRN Reason: Consult order Sodium Chloride (0.9 % Sodium Chloride Flush 3 Ml Syringe) 3 ml IVFLUSH QSHIFT [facility] Last Admin: 07/28/21 07:15 Dose: Not Given Documented by: Home Medications Medication Instructions Recorded Confirmed Last Taken Type aripiprazole 2 mg tablet (Abilify) 2 mg PO DAILY 07/27/21 07/27/21 07/20/21 History duloxetine 30 mg capsule,delayed 30 mg PO DAILY 07/27/21 07/27/21 07/20/21 History release duloxetine 60 mg capsule,delayed 60 mg PO DAILY 07/27/21 07/27/21 07/20/21 History release zolpidem 10 mg tablet (Ambien) 10 mg PO BEDTIME PRN 07/27/21 07/27/21 07/20/21 History Physical Exam Vital Signs: Vital Signs: Last Vital Signs Temp 98.5 F 07/28/21 06:14 Pulse 93 07/28/21 08:28 Resp 25 H 07/28/21 08:28 BP 124/63 07/28/21 08:16 Pulse Ox 97 07/28/21 08:16 BMI result Body Mass Index 27.6 Const: General: cooperative, comfortable, alert, awake, in distress mild and other (Pleuritic pain) and anxious Nutritional Appearance: overweight Orientation/consciousness: patient oriented x3 HENMT: Head: Yes normocephalic and Yes atraumatic Neck: Neck: Yes trachea midline, Yes supple and Yes no JVD Resp: Effort & Inspection: normal respiratory effort Auscultation: wheezes throughout and diminished lung sounds Cardio: Jugular venous distension: no JVD Palpation: normal PMI Rate: regular rate Rhythm: regular rhythm Heart sounds: S1 normal heart sound present, S2 normal heart sound present, no click, no gallops, no murmurs and no rubs GI: Auscultation: normal bowel sounds Skin: General skin exam: no rashes or lesions noted Neuro: General: patient oriented x3 and no focal motor deficits Extrem: General: Yes no clubbing, cyanosis or edema Objective Labs and Meds Result diagrams: 07/28/21 05:24 07/28/21 05:24 Lab results: Laboratory Results - last 24 hr 07/27/21 07/27/21 07/27/21 09:40 13:27 16:33 WBC RBC Hgb Hct MCV MCH MCHC RDW Plt Count MPV Absolute Nucleated RBC Nucleated RBC % (auto) PT 11.5 INR 1.0 APTT 33.1 PTT (Heparin Protocol) Sodium Potassium Chloride Carbon Dioxide Anion Gap BUN Creatinine Estim Creat Clear Calc Estimated GFR Random Glucose Calcium Troponin I High Sens 89.2 H D Triglycerides Cholesterol LDL Cholesterol, Calc HDL Cholesterol Respiratory Panel Diaz See Note Adenovirus (Rapid PCR) Not Detected B.pert (TEM-PCR) Not Detected B.parapertussis DNA PCR Not Detected C. pneumoniae DNA (PCR) Not Detected Coronavirus OC43 (PCR) Not Detected Coronavirus HKU1 (PCR) Not Detected Coronavirus 229E (PCR) Not Detected Coronavirus NL63 (PCR) Not Detected Human Metapneumovir PCR Not Detected Influenza A (RT-PCR) Not Detected Influenza B (RT-PCR) Not Detected M. pneumoniae (PCR) Not Detected Parainfluenza 1 (PCR) Not Detected Parainfluenza 2 (PCR) Not Detected Parainfluenza 3 (PCR) Not Detected Parainfluenza 4 (PCR) Not Detected RSV (PCR) Not Detected Entero/Rhino (PCR) Detected A SARS-CoV-2 RNA (RT-PCR) Not Detected 07/27/21 07/27/21 07/27/21 16:33 21:14 22:25 WBC 16.9 H RBC 4.22 L Hgb 12.7 L Hct 37.9 L MCV 89.8 MCH 30.1 MCHC 33.5 RDW 13.4 Plt Count 171 MPV 10.4 Absolute Nucleated RBC 0.000 Nucleated RBC % (auto) 0.0 PT INR APTT PTT (Heparin Protocol) Sodium Potassium Chloride Carbon Dioxide Anion Gap BUN Creatinine Estim Creat Clear Calc Estimated GFR Random Glucose Calcium Troponin I High Sens 108.5 H* 217.0 H* D Triglycerides Cholesterol LDL Cholesterol, Calc HDL Cholesterol Respiratory Panel Diaz Adenovirus (Rapid PCR) B.pert (TEM-PCR) B.parapertussis DNA PCR C. pneumoniae DNA (PCR) Coronavirus OC43 (PCR) Coronavirus HKU1 (PCR) Coronavirus 229E (PCR) Coronavirus NL63 (PCR) Human Metapneumovir PCR Influenza A (RT-PCR) Influenza B (RT-PCR) M. pneumoniae (PCR) Parainfluenza 1 (PCR) Parainfluenza 2 (PCR) Parainfluenza 3 (PCR) Parainfluenza 4 (PCR) RSV (PCR) Entero/Rhino (PCR) SARS-CoV-2 RNA (RT-PCR) 07/27/21 07/28/21 07/28/21 22:25 04:32 05:24 WBC 15.4 H RBC 3.87 L Hgb 11.8 L Hct 35.1 L MCV 90.7 MCH 30.5 MCHC 33.6 RDW 13.5 Plt Count 169 MPV 10.8 Absolute Nucleated RBC 0.000 Nucleated RBC % (auto) 0.0 PT 11.8 INR 1.0 APTT PTT (Heparin Protocol) 42.4 L Sodium Potassium Chloride Carbon Dioxide Anion Gap BUN Creatinine Estim Creat Clear Calc Estimated GFR Random Glucose Calcium Troponin I High Sens 329.0 H* D Triglycerides Cholesterol LDL Cholesterol, Calc HDL Cholesterol Respiratory Panel Diaz Adenovirus (Rapid PCR) B.pert (TEM-PCR) B.parapertussis DNA PCR C. pneumoniae DNA (PCR) Coronavirus OC43 (PCR) Coronavirus HKU1 (PCR) Coronavirus 229E (PCR) Coronavirus NL63 (PCR) Human Metapneumovir PCR Influenza A (RT-PCR) Influenza B (RT-PCR) M. pneumoniae (PCR) Parainfluenza 1 (PCR) Parainfluenza 2 (PCR) Parainfluenza 3 (PCR) Parainfluenza 4 (PCR) RSV (PCR) Entero/Rhino (PCR) SARS-CoV-2 RNA (RT-PCR) 07/28/21 07/28/21 07/28/21 05:24 07:25 07:25 WBC RBC Hgb Hct MCV MCH MCHC RDW Plt Count MPV Absolute Nucleated RBC Nucleated RBC % (auto) PT INR APTT PTT (Heparin Protocol) 76.6 D Sodium 140 Potassium 4.2 Chloride 109 H Carbon Dioxide 23 Anion Gap 12 BUN 24 H Creatinine 0.87 Estim Creat Clear Calc 86.9 Estimated GFR > 60 Random Glucose 110 Calcium 9.0 Troponin I High Sens 293.7 H* Triglycerides 64 Cholesterol 112 LDL Cholesterol, Calc 68 HDL Cholesterol 32 Respiratory Panel Diaz Adenovirus (Rapid PCR) B.pert (TEM-PCR) B.parapertussis DNA PCR C. pneumoniae DNA (PCR) Coronavirus OC43 (PCR) Coronavirus HKU1 (PCR) Coronavirus 229E (PCR) Coronavirus NL63 (PCR) Human Metapneumovir PCR Influenza A (RT-PCR) Influenza B (RT-PCR) M. pneumoniae (PCR) Parainfluenza 1 (PCR) Parainfluenza 2 (PCR) Parainfluenza 3 (PCR) Parainfluenza 4 (PCR) RSV (PCR) Entero/Rhino (PCR) SARS-CoV-2 RNA (RT-PCR) Imaging Radiologist's impression: Impressions Chest CTA 07/27/21 11:05 IMPRESSION: Limited exam due to artifact from respiratory motion. No large or central pulmonary embolism seen. 8 mm peripheral or subpleural density in the lateral costophrenic sulcus of the right lower lobe, question pulmonary nodule versus atelectasis. Chest CT follow-up should be considered in 6-12 months. VTE: negative Assessment and Plan (1) Acute coronary syndrome: Status: Acute Patient with significant ST depression diffusely as well as abnormal troponin suggestive acute coronary syndrome in the setting of acute respiratory failure with hypoxemia and acute bronchospastic airway disease probably related to bronchitis/pneumonia. Not sure if this is secondary or primary event and may have epigastric discomfort that may point to myocardial ischemia. Currently having diffuse pleuritic chest pain. Continue to manage that. Continue aggressively manage his pulmonary condition. Also manages acute coronary syndrome with IV heparin, aspirin and high-intensity statin therapy. Will add nitropaste 0.5 mg q.6 hours. If blood pressures became add low-dose Norvasc starting tomorrow. It is possible is EKG changes could also be due to apical hypertrophic cardiomyopathy in setting of ischemia and tachycardia. However he will require cardiac catheterization once his pulmonary condition is stable. Anticipate that his should get better in the next 2 days and transferred to [facility] on Friday for cardiac catheterization on Friday. This was discussed with him with help of translator and interpreter. He is agreeable. Will continue to follow with you. Procedures Date of Service Date of Service: 07/28/21
[2021-07-28 11:43] LABS: Troponin-I High Sensitivity 217.2 ng/L (<3.5-35.0)
--- NOTE | 2021-07-28 12:00 | HO.PM.IMPN ---
Subjective Subjective Date of Service: 07/28/21 <TINY Cisneros - Last Filed: 07/28/21 12:30> 07/29/21 <Trey Shepard MD - Last Filed: 07/29/21 10:13> Interval History: seen and examined this morning, history obtained through the use of asl interpreter via ean video follow-up for chest pain, shortness of breath still reporting shortness of breath, endorses cough productive of thick phlegm having generalized abdominal pain worse with coughing, pleuritic chest pain <TINY Cisneros - Last Filed: 07/28/21 12:30> Review of Systems Review of Systems: Yes all other systems are reviewed and are negative <TINY Cisneros - Last Filed: 07/28/21 12:30> Constitutional Constitutional: Denies chills and Denies fever(s) <TINY Cisneros - Last Filed: 07/28/21 12:30> Respiratory Respiratory: Reports cough and Reports pain on inspiration <TINY Cisneros - Last Filed: 07/28/21 12:30> Gastrointestinal Gastrointestinal: Reports abdominal pain, Denies diarrhea, Denies nausea and Denies vomiting <TINY Cisneros - Last Filed: 07/28/21 12:30> Physical Exam Vital Signs: Vital Signs: Last Vital Signs Temp 98.5 F 07/28/21 06:14 Pulse 93 07/28/21 08:28 Resp 25 H 07/28/21 08:28 BP 124/63 07/28/21 08:16 Pulse Ox 97 07/28/21 08:16 BMI result Body Mass Index 27.6 <TINY Cisneros - Last Filed: 07/28/21 12:30> Const: Other: appears uncomfortable when coughing <TINY Cisneros Last Filed: 07/28/21 12:30> General: alert and awake <TINY Cisneros - Last Filed: 07/28/21 12:30> Nutritional Appearance: well nourished <TINY Cisneros Last Filed: 07/28/21 12:30> Orientation/consciousness: patient oriented x3 <TINY Cisneros - Last Filed: 07/28/21 12:30> Limitations: language barrier <TINY Cisneros - Last Filed: 07/28/21 12:30> HENMT: Head: Yes normocephalic and Yes atraumatic <TINY Cisneros - Last Filed: 07/28/21 12:30> Eyes: Sclerae: sclerae normal <TINY Cisneros - Last Filed: 07/28/21 12:30> Resp: Other: expiratory wheezing <TINY Cisneros - Last Filed: 07/28/21 12:30> Effort & Inspection: normal respiratory effort and no respiratory distress <TINY Cisneros - Last Filed: 07/28/21 12:30> Cardio: Rate: regular rate <TINY Cisneros - Last Filed: 07/28/21 12:30> Rhythm: regular rhythm <TINY Cisneros - Last Filed: 07/28/21 12:30> GI: Palpation (GI): Soft to palpation and nontender <TINY Cisneros - Last Filed: 07/28/21 12:30> Neuro: General: patient oriented x3 <TINY Cisneros - Last Filed: 07/28/21 12:30> Cranial nerves: Yes CN's II-XII intact bilaterally and Yes Bilaterally intact EOM present <TINY Cisneros - Last Filed: 07/28/21 12:30> Extrem: Other: able to move all 4 extremities spontaneously <TINY Cisneros - Last Filed: 07/28/21 12:30> General: Yes no pedal edema <TINY Cisneros - Last Filed: 07/28/21 12:30> Objective Data Active Medications Acetaminophen (Acetaminophen 325 Mg Tablet) 650 mg PO Q6H PRN PRN Reason: Pain, Mild (Pain Scale 1-3) Al Hydroxide/Mg Hydroxide (Magnesium Hydrox/Alum Hydrox 30 Ml Oral.Susp) 30 ml PO Q4H PRN PRN Reason: Heartburn Last Admin: 07/28/21 05:15 Dose: 30 ml Documented by: DADA Aspirin (Aspirin 81 Mg Tab.Chew) 81 mg PO DAILY [facility] Last Admin: 07/28/21 10:12 Dose: 81 mg Documented by: REAL Atorvastatin Calcium (Atorvastatin Calcium 40 Mg Tablet) 40 mg PO BEDTIME DAVID Last Admin: 07/27/21 21:12 Dose: 40 mg Documented by: DADA Famotidine (Famotidine/Pf 20 Mg/2 Ml Vial) 20 mg IVPUSH DAILY [facility] Last Admin: 07/28/21 10:12 Dose: 20 mg Documented by: REAL Guaifenesin/Dextromethorphan (Guaifenesin Dm 100/10/5 Ml 5 Ml Syrup) 5 ml PO Q6H [facility] Last Admin: 07/28/21 10:12 Dose: 5 ml Documented by: REAL Heparin Sodium (Porcine) (Heparin Sodium,Porcine 5,000 Unit/Ml Vial) 3,400 unit 40 unit/kg (3400 unit) IVPUSH PROTOCOL BOLUS PRN; Protocol PRN Reason: 40 unit/kg - Heparin Protocol Heparin Sodium (Porcine) (Heparin Sodium,Porcine 5,000 Unit/Ml Vial) 6,800 unit 80 unit/kg (6800 unit) IVPUSH PROTOCOL BOLUS PRN; Protocol PRN Reason: 80 unit/kg - Heparin Protocol Heparin Sodium/Sodium Chloride () 25,000 unit in 250 mls @ 0 mls/hr IVCONT .Q0M DAVID; Protocol Last Titration: 07/28/21 10:20 Dose: 14 units/kg/hr, 11.88 mls/hr Documented by: REAL Cosigned by: NACHO Ipratropium [place] (Ipratropium [place] 0.5 Mg/2.5 Ml Solution) 0.5 mg INHALE RQ4H WHILE AWAKE [facility] Last Admin: 07/28/21 08:28 Dose: Not Given Documented by: ANGEL Non-Admin Reason: Med Not Available Levalbuterol HCl (Levalbuterol Hcl 1.25 Mg/0.5 Ml Vial.Neb) 1.25 mg INHALE RQ4H WHILE AWAKE [facility] Last Admin: 07/28/21 08:27 Dose: 1.25 mg Documented by: ANGEL Methylprednisolone Sodium Succinate (Methylprednisolone Sod Succ 125 Mg/2 Ml Vial) 60 mg IVPUSH Q12H [facility] Last Admin: 07/28/21 10:12 Dose: 60 mg Documented by: REAL Morphine Sulfate (Morphine Sulfate 2 Mg/Ml Cartridge) 2 mg IVPUSH Q4H PRN; Protocol PRN Reason: Pain, Severe (Pain Scale 7-10) Last Admin: 07/28/21 10:13 Dose: 2 mg Documented by: REAL Nitroglycerin (Nitroglycerin 2 % Oint 1 Gm Packet) 0.5 inch TRANSDERMA RQ6H WHILE AWAKE [facility] Ondansetron HCl (Ondansetron Hcl 4 Mg/2 Ml Vial) 4 mg IVPUSH Q8H PRN PRN Reason: Nausea and Vomiting Pharmacy Consult (Consult Rx Perform Med Rec) 1 each MISCELLANE ONCE PRN PRN Reason: Consult order Sodium Chloride (0.9 % Sodium Chloride Flush 3 Ml Syringe) 3 ml IVFLUSH QSHIFT [facility] Last Admin: 07/28/21 07:15 Dose: Not Given Documented by: REAL Non-Admin Reason: IV Running <TINY Cisneros - Last Filed: 07/28/21 12:30> Labs CBC & Chem 7: : 07/29/21 05:15 07/29/21 05:15 <TINY Cisneros - Last Filed: 07/28/21 12:30> Labs: Laboratory Results - last 24 hr 07/27/21 07/27/21 07/27/21 09:40 13:27 16:33 MCV MCH MCHC RDW Plt Count MPV Absolute Nucleated RBC Nucleated RBC % (auto) PT 11.5 INR 1.0 APTT 33.1 PTT (Heparin Protocol) Anion Gap Estim Creat Clear Calc Estimated GFR Random Glucose Calcium Troponin I High Sens 89.2 H D Triglycerides Cholesterol LDL Cholesterol, Calc HDL Cholesterol Respiratory Panel Diaz See Note Adenovirus (Rapid PCR) Not Detected B.pert (TEM-PCR) Not Detected B.parapertussis DNA PCR Not Detected C. pneumoniae DNA (PCR) Not Detected Coronavirus OC43 (PCR) Not Detected Coronavirus HKU1 (PCR) Not Detected Coronavirus 229E (PCR) Not Detected Coronavirus NL63 (PCR) Not Detected Human Metapneumovir PCR Not Detected Influenza A (RT-PCR) Not Detected Influenza B (RT-PCR) Not Detected M. pneumoniae (PCR) Not Detected Parainfluenza 1 (PCR) Not Detected Parainfluenza 2 (PCR) Not Detected Parainfluenza 3 (PCR) Not Detected Parainfluenza 4 (PCR) Not Detected RSV (PCR) Not Detected Entero/Rhino (PCR) Detected A SARS-CoV-2 RNA (RT-PCR) Not Detected 07/27/21 07/27/21 07/27/21 16:33 21:14 22:25 MCV 89.8 MCH 30.1 MCHC 33.5 RDW 13.4 Plt Count 171 MPV 10.4 Absolute Nucleated RBC 0.000 Nucleated RBC % (auto) 0.0 PT INR APTT PTT (Heparin Protocol) Anion Gap Estim Creat Clear Calc Estimated GFR Random Glucose Calcium Troponin I High Sens 108.5 H* 217.0 H* D Triglycerides Cholesterol LDL Cholesterol, Calc HDL Cholesterol Respiratory Panel Diaz Adenovirus (Rapid PCR) B.pert (TEM-PCR) B.parapertussis DNA PCR C. pneumoniae DNA (PCR) Coronavirus OC43 (PCR) Coronavirus HKU1 (PCR) Coronavirus 229E (PCR) Coronavirus NL63 (PCR) Human Metapneumovir PCR Influenza A (RT-PCR) Influenza B (RT-PCR) M. pneumoniae (PCR) Parainfluenza 1 (PCR) Parainfluenza 2 (PCR) Parainfluenza 3 (PCR) Parainfluenza 4 (PCR) RSV (PCR) Entero/Rhino (PCR) SARS-CoV-2 RNA (RT-PCR) 07/27/21 07/28/21 07/28/21 22:25 04:32 05:24 MCV 90.7 MCH 30.5 MCHC 33.6 RDW 13.5 Plt Count 169 MPV 10.8 Absolute Nucleated RBC 0.000 Nucleated RBC % (auto) 0.0 PT 11.8 INR 1.0 APTT PTT (Heparin Protocol) 42.4 L Anion Gap Estim Creat Clear Calc Estimated GFR Random Glucose Calcium Troponin I High Sens 329.0 H* D Triglycerides Cholesterol LDL Cholesterol, Calc HDL Cholesterol Respiratory Panel Diaz Adenovirus (Rapid PCR) B.pert (TEM-PCR) B.parapertussis DNA PCR C. pneumoniae DNA (PCR) Coronavirus OC43 (PCR) Coronavirus HKU1 (PCR) Coronavirus 229E (PCR) Coronavirus NL63 (PCR) Human Metapneumovir PCR Influenza A (RT-PCR) Influenza B (RT-PCR) M. pneumoniae (PCR) Parainfluenza 1 (PCR) Parainfluenza 2 (PCR) Parainfluenza 3 (PCR) Parainfluenza 4 (PCR) RSV (PCR) Entero/Rhino (PCR) SARS-CoV-2 RNA (RT-PCR) 07/28/21 07/28/21 07/28/21 05:24 07:25 07:25 MCV MCH MCHC RDW Plt Count MPV Absolute Nucleated RBC Nucleated RBC % (auto) PT INR APTT PTT (Heparin Protocol) 76.6 D Anion Gap 12 Estim Creat Clear Calc 86.9 Estimated GFR > 60 Random Glucose 110 Calcium 9.0 Troponin I High Sens 293.7 H* Triglycerides 64 Cholesterol 112 LDL Cholesterol, Calc 68 HDL Cholesterol 32 Respiratory Panel Diaz Adenovirus (Rapid PCR) B.pert (TEM-PCR) B.parapertussis DNA PCR C. pneumoniae DNA (PCR) Coronavirus OC43 (PCR) Coronavirus HKU1 (PCR) Coronavirus 229E (PCR) Coronavirus NL63 (PCR) Human Metapneumovir PCR Influenza A (RT-PCR) Influenza B (RT-PCR) M. pneumoniae (PCR) Parainfluenza 1 (PCR) Parainfluenza 2 (PCR) Parainfluenza 3 (PCR) Parainfluenza 4 (PCR) RSV (PCR) Entero/Rhino (PCR) SARS-CoV-2 RNA (RT-PCR) 07/28/21 11:06 MCV MCH MCHC RDW Plt Count MPV Absolute Nucleated RBC Nucleated RBC % (auto) PT INR APTT PTT (Heparin Protocol) Anion Gap Estim Creat Clear Calc Estimated GFR Random Glucose Calcium Troponin I High Sens 217.2 H* Triglycerides Cholesterol LDL Cholesterol, Calc HDL Cholesterol Respiratory Panel Diaz Adenovirus (Rapid PCR) B.pert (TEM-PCR) B.parapertussis DNA PCR C. pneumoniae DNA (PCR) Coronavirus OC43 (PCR) Coronavirus HKU1 (PCR) Coronavirus 229E (PCR) Coronavirus NL63 (PCR) Human Metapneumovir PCR Influenza A (RT-PCR) Influenza B (RT-PCR) M. pneumoniae (PCR) Parainfluenza 1 (PCR) Parainfluenza 2 (PCR) Parainfluenza 3 (PCR) Parainfluenza 4 (PCR) RSV (PCR) Entero/Rhino (PCR) SARS-CoV-2 RNA (RT-PCR) <TINY Cisneros - Last Filed: 07/28/21 12:30> Microbiology Microbiology Results: Microbiology 07/27/21 04:54 Blood Culture - Preliminary Blood - Venous No growth after 24 hours. 07/27/21 05:01 Blood Culture - Preliminary Blood - Venous No growth after 24 hours. <TINY Cisneros - Last Filed: 07/28/21 12:30> Assessment and Plan (1) Acute respiratory failure with hypoxia: Status: Acute <TINY Cisneros - Last Filed: 07/28/21 12:30> (2) Rhinovirus: Status: Acute <TINY Cisneros - Last Filed: 07/28/21 12:30> (3) Acute coronary syndrome: Status: Acute <TINY Cisneros - Last Filed: 07/28/21 12:30> Assessment and Plan: This is a 61 yo M with mood disorder presents to [facility] [place] ED with respiratory complaints which began on the day prior to arrival. He is noted to be tachycardic, hypoxic with scattered wheezing. He will be admitted for further work up and treatment. NSTEMI diffuse ST wave depression and troponin rising up to 329 suggestive of ACS started on IV heparin overnight continue heparin, ASA, statin will add nitropaste echo hyperdynamic LFEF >70%; possible apical hypertrophic cardiomyopathy cardiology following, likely transfer to [facility] [place] [facility] on Friday for cardiac catheterization once respiratory status improves Acute Respiratory Failure with hypoxia initially requiring supplemental oxygen, now on room air no history of lung disease, non-smoker likely related to rhinovirus CTA negative for PE/pneumonia continue IV solu-medrol 40mg BID, scheduled updrafts (will use xopenex in light of tachycardia). Nodule noted on CT -- repeat CT recommended in 6-12 months abdominal pain burning in nature but seems to be worse with coughing. in between coughing appears comfortable will start iv pepcid and monitor for effect mood resume home nataly and kvng Full Code Reports his sister as healthcare proxy dvt ppx - heparin attending: dr. shepard <TINY Cisneros Last Filed: 07/28/21 12:30> Quality Stroke Does the patient have a stroke diagnosis?: No <TINY Cisneros - Last Filed: 07/28/21 12:30> VTE Prior VTE?: No <TINY Cisneros - Last Filed: 07/28/21 12:30> VTE Risk Level:: Medical - moderate - high <TINY Cisneros - Last Filed: 07/28/21 12:30> VTE Device Contraindication: Treatment Not Indicated <TINY Cisneros - Last Filed: 07/28/21 12:30> VTE Drug Contraindication: N/A - Med Ordered <TINY Cisneros - Last Filed: 07/28/21 12:30>
[2021-07-28] MEDS: Nitroglycerin 2 % Oint 1 GM Packet 0.5 INCH TRANSDERMA ×2 (13:04→20:55)
[2021-07-28 13:11] LABS: Procalcitonin 0.23 ng/mL
[2021-07-28 14:50] LABS: Prothrombin Time 10.9 SEC (9.9-13.0)
[2021-07-28 14:52] LABS: PTT Heparin Drip 102.2 SEC (53-77.9)
[2021-07-28] MEDS: 0.9 % Sodium Chloride Flush 3 ML SYRINGE IVFLUSH (15:14)
[2021-07-28] MEDS: Atorvastatin Calcium 40 MG TABLET PO (21:00)
[2021-07-28 22:21] LABS: PTT Heparin Drip 50.3 SEC (53-77.9)
[2021-07-28] MEDS: Heparin Sodium,Porcine 5,000 UNIT/ML VIAL 3400 UNIT IVPUSH (23:04)
[2021-07-29] VITALS (8 sets, daily range): BP systolic 133–155; BP diastolic 54–85; PULSE 74–92; RESP 15–20; TEMP 36.5–36.8; O2SAT 94–98
[2021-07-29] MEDS: Morphine Sulfate 2 MG/ML CARTRIDGE IVPUSH ×2 (00:17→05:12)
--- NOTE | 2021-07-29 02:00 | PC.NURSE ---
rn spoke to hospitalist who gave verbal order to d/c tele order. This message was conveyed to the rn caring for the patient
[2021-07-29] MEDS: guaiFENesin DM 100/10/5 ML 5 ML SYRUP PO ×4 (04:29→21:30)
[2021-07-29 05:22] LABS: MANUAL DIFF FLAG NO
[2021-07-29 05:25] LABS: Basophils Percent Auto 0.1 % (0-2); Hematocrit 37.1 % (42.0-52.0); Hemoglobin 12.4 g/dl (14.0-18.0); Imm Gran Abs Auto 0.31 X10*3/uL (0.00-0.03); Imm Gran Pct Auto 2.1 % (0.0-0.4); Lymphocytes Absolute Auto 0.7 X10*3/uL (1.2-4.9); Lymphocytes Percent Auto 4.5 % (20-40); Mean Corpuscular HGB Conc 33.4 g/dl (31.0-36.0); Mean Corpuscular Hemoglobin 30.4 pg (27.0-33.0); Mean Corpuscular Volume 90.9 fL (80.0-98.0); Mean Platelet Volume 10.3 fL (9.4-12.4); Monocytes Absolute Auto 0.7 X10*3/uL (0.1-1.2); Monocytes Percent Auto 4.5 % (2-11); Neutrophils Absolute Auto 13.2 x10*3/uL (2.0-8.3); Neutrophils Percent Auto 88.8 % (45-73); Platelet Count 189 X10*3/uL (160-400); Red Blood Count 4.08 X10*6/uL (4.60-5.80); Red Cell Distribution Width 13.5 % (11.0-16.0); White Blood Count 14.8 X10*3/uL (4.8-10.8)
[2021-07-29] MEDS: Heparin Sodium,Porcine/1/2NS 25,000 UNIT/250 ML IV.SOLN 11.03 UNIT IVCONT (05:35)
[2021-07-29 05:45] LABS: PTT Heparin Drip 65.6 SEC (53-77.9)
[2021-07-29 05:54] LABS: Anion Gap 14 (12-20); Blood Urea Nitrogen 20 mg/dL (9-16); Calcium 9.6 mg/dL (8.4-10.2); Carbon Dioxide 25 mmol/L (22-29); Chloride 106 mmol/L (96-108); Estimated Glomerular Filt Rate > 60; Glucose Random 188 mg/dL (60-115); Potassium 4.8 mmol/L (3.3-5.1); Sodium 140 mmol/L (135-145)
[2021-07-29] MEDS: Ipratropium Bromide 0.5 MG/2.5 ML SOLUTION INHALE ×3 (08:23→19:51)
[2021-07-29] MEDS: Famotidine/PF 20 MG/2 ML VIAL IVPUSH (09:15)
[2021-07-29] MEDS: Nitroglycerin 2 % Oint 1 GM Packet 0.5 INCH TRANSDERMA ×3 (09:16→21:30)
[2021-07-29] MEDS: Aspirin 81 MG TAB.CHEW PO (09:16)
[2021-07-29] MEDS: ARIPiprazole 2 MG TABLET PO (09:16)
[2021-07-29] MEDS: methylPREDNISolone Sod Succ 125 MG/2 ML VIAL 60 MG IVPUSH (09:16)
[2021-07-29] MEDS: DULoxetine HCl 30 MG CAPSULE.DR PO (09:16)
[2021-07-29] MEDS: DULoxetine HCl 60 MG CAPSULE.DR PO (09:17)
[2021-07-29 11:38] LABS: PTT Heparin Drip 76.5 SEC (53-77.9)
--- NOTE | 2021-07-29 12:24 | HO.PM.IMPN ---
Subjective Subjective Date of Service: 07/29/21 Interval History: seen and examined this morning, history obtained with use of insurance account specialist via ean tele-conference still reporting cough and pain around upper abdomen with coughing no nausea, vomiting or diarrhea no fevers or chills Review of Systems Review of Systems: Yes all other systems are reviewed and are negative Constitutional Constitutional: Denies chills and Denies fever(s) Cardiovascular Cardiovascular: Denies chest pain Respiratory Respiratory: Reports cough, Reports pain on inspiration and Reports pain with cough Gastrointestinal Gastrointestinal: Reports abdominal pain, Denies diarrhea, Denies nausea and Denies vomiting Physical Exam Vital Signs: Vital Signs: Last Vital Signs Temp 97.7 F 07/29/21 04:27 Pulse 74 07/29/21 11:53 Resp 18 07/29/21 11:53 BP 133/74 07/29/21 09:13 Pulse Ox 94 07/29/21 09:13 BMI result Body Mass Index 27.6 Const: Other: appears more comfortable today General: alert and awake Nutritional Appearance: well nourished Orientation/consciousness: patient oriented x3 Limitations: language barrier HENMT: Head: Yes normocephalic and Yes atraumatic Eyes: Sclerae: sclerae normal Resp: Other: expiratory wheezing Effort & Inspection: normal respiratory effort and no respiratory distress Cardio: Rate: regular rate Rhythm: regular rhythm GI: Inspection: No distended Palpation (GI): Soft to palpation and nontender Neuro: General: patient oriented x3 Cranial nerves: Yes CN's II-XII intact bilaterally and Yes Bilaterally intact EOM present Extrem: Other: able to move all 4 extremities spontaneously General: Yes no pedal edema Objective Data Active Medications Acetaminophen (Acetaminophen 325 Mg Tablet) 650 mg PO Q6H PRN PRN Reason: Pain, Mild (Pain Scale 1-3) Al Hydroxide/Mg Hydroxide (Magnesium Hydrox/Alum Hydrox 30 Ml Oral.Susp) 30 ml PO Q4H PRN PRN Reason: Heartburn Last Admin: 07/28/21 05:15 Dose: 30 ml Documented by: DADA Aripiprazole (Aripiprazole 2 Mg Tablet) 2 mg PO DAILY [facility] Last Admin: 07/29/21 09:16 Dose: 2 mg Documented by: REAL Aspirin (Aspirin 81 Mg Tab.Chew) 81 mg PO DAILY [facility] Last Admin: 07/29/21 09:16 Dose: 81 mg Documented by: REAL Atorvastatin Calcium (Atorvastatin Calcium 40 Mg Tablet) 40 mg PO BEDTIME [facility] Last Admin: 07/28/21 21:00 Dose: 40 mg Documented by: VALERIA Duloxetine HCl (Duloxetine Hcl 30 Mg Capsule.) 30 mg PO DAILY [facility] Last Admin: 07/29/21 09:16 Dose: 30 mg Documented by: REAL Duloxetine HCl (Duloxetine Hcl 60 Mg Capsule.) 60 mg PO DAILY [facility] Last Admin: 07/29/21 09:17 Dose: 60 mg Documented by: REAL Famotidine (Famotidine/Pf 20 Mg/2 Ml Vial) 20 mg IVPUSH DAILY [facility] Last Admin: 07/29/21 09:15 Dose: 20 mg Documented by: REAL Guaifenesin/Dextromethorphan (Guaifenesin Dm 100/10/5 Ml 5 Ml Syrup) 5 ml PO Q6H [facility] Last Admin: 07/29/21 09:16 Dose: 5 ml Documented by: REAL Heparin Sodium (Porcine) (Heparin Sodium,Porcine 5,000 Unit/Ml Vial) 3,400 unit 40 unit/kg (3400 unit) IVPUSH PROTOCOL BOLUS PRN; Protocol PRN Reason: 40 unit/kg - Heparin Protocol Last Admin: 07/28/21 23:04 Dose: 3,400 unit Documented by: VALERIA Heparin Sodium (Porcine) (Heparin Sodium,Porcine 5,000 Unit/Ml Vial) 6,800 unit 80 unit/kg (6800 unit) IVPUSH PROTOCOL BOLUS PRN; Protocol PRN Reason: 80 unit/kg - Heparin Protocol Heparin Sodium/Sodium Chloride () 25,000 unit in 250 mls @ 0 mls/hr IVCONT .Q0M DAVID; Protocol Last Titration: 07/29/21 11:50 Dose: 13 units/kg/hr, 11.03 mls/hr Documented by: REAL Cosigned by: NACHO Ipratropium [place] (Ipratropium [place] 0.5 Mg/2.5 Ml Solution) 0.5 mg INHALE RQ4H WHILE AWAKE [facility] Last Admin: 07/29/21 11:52 Dose: 0.5 mg Documented by: DARLING Levalbuterol HCl (Levalbuterol Hcl 1.25 Mg/0.5 Ml Vial.Neb) 1.25 mg INHALE RQ4H WHILE AWAKE [facility] Last Admin: 07/29/21 11:52 Dose: 1.25 mg Documented by: DARLING Morphine Sulfate (Morphine Sulfate 2 Mg/Ml Cartridge) 2 mg IVPUSH Q4H PRN; Protocol PRN Reason: Pain, Severe (Pain Scale 7-10) Last Admin: 07/29/21 05:12 Dose: 2 mg Documented by: VALERIA Nitroglycerin (Nitroglycerin 2 % Oint 1 Gm Packet) 0.5 inch TRANSDERMA RQ6H WHILE AWAKE [facility] Last Admin: 07/29/21 09:16 Dose: 0.5 inch Documented by: REAL Ondansetron HCl (Ondansetron Hcl 4 Mg/2 Ml Vial) 4 mg IVPUSH Q8H PRN PRN Reason: Nausea and Vomiting Pharmacy Consult (Consult Rx Perform Med Rec) 1 each MISCELLANE ONCE PRN PRN Reason: Consult order Sodium Chloride (0.9 % Sodium Chloride Flush 3 Ml Syringe) 3 ml IVFLUSH QSHIFT [facility] Last Admin: 07/29/21 07:43 Dose: Not Given Documented by: REAL Non-Admin Reason: IV Running Labs CBC & Chem 7: 07/29/21 05:15 07/29/21 05:15 Labs: Laboratory Results - last 24 hr 07/28/21 07/28/21 07/28/21 05:24 14:39 14:39 MCV MCH MCHC RDW Plt Count MPV Immature Gran % (Auto) Neut % (Auto) Lymph % (Auto) [place] % (Auto) Eos % (Auto) Baso % (Auto) Lymph # (Auto) [place] # (Auto) Eos # (Auto) Baso # (Auto) Abs Immat Gran (auto) Absolute Neuts (auto) Absolute Nucleated RBC Nucleated RBC % (auto) PT 10.9 INR 1.0 PTT (Heparin Protocol) 102.2 H D Anion Gap Estim Creat Clear Calc Estimated GFR Random Glucose Calcium Procalcitonin 0.23 07/28/21 07/29/21 07/29/21 22:04 05:15 05:15 MCV 90.9 MCH 30.4 MCHC 33.4 RDW 13.5 Plt Count 189 MPV 10.3 Immature Gran % (Auto) 2.1 H Neut % (Auto) 88.8 H Lymph % (Auto) 4.5 L [place] % (Auto) 4.5 Eos % (Auto) 0.0 Baso % (Auto) 0.1 Lymph # (Auto) 0.7 L [place] # (Auto) 0.7 Eos # (Auto) 0.0 Baso # (Auto) 0.0 Abs Immat Gran (auto) 0.31 H Absolute Neuts (auto) 13.2 H Absolute Nucleated RBC 0.000 Nucleated RBC % (auto) 0.0 PT INR PTT (Heparin Protocol) 50.3 L D 65.6 D Anion Gap Estim Creat Clear Calc Estimated GFR Random Glucose Calcium Procalcitonin 07/29/21 07/29/21 05:15 10:39 MCV MCH MCHC RDW Plt Count MPV Immature Gran % (Auto) Neut % (Auto) Lymph % (Auto) [place] % (Auto) Eos % (Auto) Baso % (Auto) Lymph # (Auto) [place] # (Auto) Eos # (Auto) Baso # (Auto) Abs Immat Gran (auto) Absolute Neuts (auto) Absolute Nucleated RBC Nucleated RBC % (auto) PT INR PTT (Heparin Protocol) 76.5 Anion Gap 14 Estim Creat Clear Calc 84.0 Estimated GFR > 60 Random Glucose 188 H D Calcium 9.6 D Procalcitonin Microbiology Microbiology Results: Microbiology 07/27/21 04:54 Blood Culture - Preliminary Blood - Venous No growth after 48 hours. 07/27/21 05:01 Blood Culture - Preliminary Blood - Venous No growth after 48 hours. Assessment and Plan (1) Rhinovirus: Status: Acute (2) Acute coronary syndrome: Status: Acute (3) Acute respiratory failure with hypoxia: Status: Acute Assessment and Plan: This is a 61 yo M with mood disorder presents to [facility] ED with respiratory complaints which began on the day prior to arrival. He is noted to be tachycardic, hypoxic with scattered wheezing. He will be admitted for further work up and treatment. NSTEMI diffuse ST wave depression on EKG and troponin rising up to 329 suggestive of ACS continue IV heparin continue heparin, ASA, statin, nitopaste echo hyperdynamic LFEF >70%; possible apical hypertrophic cardiomyopathy cardiology following, likely transfer to [facility] [place] on Friday for cardiac catheterization once respiratory status improves Acute Respiratory Failure with hypoxia initially requiring supplemental oxygen, now on room air no history of lung disease, non-smoker likely related to rhinovirus CTA negative for PE/pneumonia d/c steroids continue scheduled updrafts (will use xopenex in light of tachycardia). Nodule noted on CT -- repeat CT recommended in 6-12 months abdominal pain burning in nature but seems to be worse with coughing. in between coughing appears comfortable continue pepcid mood resume home abilify and kathyalta Full Code Reports his sister as healthcare proxy- Anna [phone] dvt ppx - heparin attending: dr. cheng Quality Stroke Does the patient have a stroke diagnosis?: No VTE Prior VTE?: No VTE Risk Level:: Medical - moderate - high VTE Device Contraindication: Treatment Not Indicated VTE Drug Contraindication: N/A - Med Ordered
--- NOTE | 2021-07-29 13:28 | PM.PNCARD ---
Subjective Subjective Date of Service: 07/29/21 Principal diagnosis: Acute bronchitis, acute coronary syndrome Interval history: Patient feeling better, however says he is still wheezing. History obtained with help of a certified drain tiler over the video with sign language. Still in distress with deep breaths and having some discomfort. Review of Systems Cardiovascular: Denies chest pain, Denies Epigastric Pain and Reports dyspnea Respiratory: Reports dyspnea and Reports wheezing Gastrointestinal: Reports no additional gastrointestinal complaints Genitourinary: Reports no additional male genitourinary complaints Musculoskeletal: Reports no additional musculoskeletal complaints Reports system reviewed and no additional complaints, except as documented Allergic/Immunologic: Reports wheezing Physical Exam Vital Signs: Last Vital Signs Temp 97.7 F 07/29/21 04:27 Pulse 74 07/29/21 11:53 Resp 18 07/29/21 11:53 BP 133/74 07/29/21 09:13 Pulse Ox 94 07/29/21 09:13 BMI result Body Mass Index 27.6 Const General: cooperative, comfortable, no acute distress, alert and awake Nutritional Appearance: overweight Orientation/consciousness: patient oriented x3 Neck Neck: Yes trachea midline, Yes supple and Yes no JVD Resp Effort & Inspection: normal respiratory effort Auscultation: wheezes (Improved) and diminished lung sounds Cardio Jugular venous distension: no JVD Palpation: normal PMI Rate: regular rate Rhythm: regular rhythm Heart sounds: S1 normal heart sound present, S2 normal heart sound present, no click, no gallops and no murmurs GI Auscultation: normal bowel sounds Neuro General: patient oriented x3 and no focal motor deficits Extrem General: Yes no clubbing, cyanosis or edema Objective Labs and Meds Result diagrams: 07/29/21 05:15 07/29/21 05:15 Lab results: Laboratory Results - last 24 hr 07/28/21 07/28/21 07/28/21 14:39 14:39 22:04 WBC RBC Hgb Hct MCV MCH MCHC RDW Plt Count MPV Immature Gran % (Auto) Neut % (Auto) Lymph % (Auto) [place] % (Auto) Eos % (Auto) Baso % (Auto) Lymph # (Auto) [place] # (Auto) Eos # (Auto) Baso # (Auto) Abs Immat Gran (auto) Absolute Neuts (auto) Absolute Nucleated RBC Nucleated RBC % (auto) PT 10.9 INR 1.0 PTT (Heparin Protocol) 102.2 H D 50.3 L D Sodium Potassium Chloride Carbon Dioxide Anion Gap BUN Creatinine Estim Creat Clear Calc Estimated GFR Random Glucose Calcium 07/29/21 07/29/21 07/29/21 05:15 05:15 05:15 WBC 14.8 H RBC 4.08 L Hgb 12.4 L Hct 37.1 L MCV 90.9 MCH 30.4 MCHC 33.4 RDW 13.5 Plt Count 189 MPV 10.3 Immature Gran % (Auto) 2.1 H Neut % (Auto) 88.8 H Lymph % (Auto) 4.5 L [place] % (Auto) 4.5 Eos % (Auto) 0.0 Baso % (Auto) 0.1 Lymph # (Auto) 0.7 L [place] # (Auto) 0.7 Eos # (Auto) 0.0 Baso # (Auto) 0.0 Abs Immat Gran (auto) 0.31 H Absolute Neuts (auto) 13.2 H Absolute Nucleated RBC 0.000 Nucleated RBC % (auto) 0.0 PT INR PTT (Heparin Protocol) 65.6 D Sodium 140 Potassium 4.8 Chloride 106 Carbon Dioxide 25 Anion Gap 14 BUN 20 H Creatinine 0.90 Estim Creat Clear Calc 84.0 Estimated GFR > 60 Random Glucose 188 H D Calcium 9.6 D 07/29/21 10:39 WBC RBC Hgb Hct MCV MCH MCHC RDW Plt Count MPV Immature Gran % (Auto) Neut % (Auto) Lymph % (Auto) [place] % (Auto) Eos % (Auto) Baso % (Auto) Lymph # (Auto) [place] # (Auto) Eos # (Auto) Baso # (Auto) Abs Immat Gran (auto) Absolute Neuts (auto) Absolute Nucleated RBC Nucleated RBC % (auto) PT INR PTT (Heparin Protocol) 76.5 Sodium Potassium Chloride Carbon Dioxide Anion Gap BUN Creatinine Estim Creat Clear Calc Estimated GFR Random Glucose Calcium Progress Note: A&P Assessment and plan (1) Acute coronary syndrome: Status: Acute Assessment and Plan: Finding suggestive of acute coronary syndrome with EKG changes as well as abnormal troponins with some epigastric discomfort. Still acute bronchospastic airway disease although improving. By tomorrow if his pulmonary status improved will transfer to [facility] for cardiac catheterization. Continue pulmonary treatment. Continue high IV heparin, aspirin, statins and nitropaste. Plan was discussed with him with help of drain tiler. He is agreeable with this management plan. Will follow with you Fall Risk Details Current Medications: Current Medications Acetaminophen (Acetaminophen 325 Mg Tablet) 650 mg PO Q6H PRN PRN Reason: Pain, Mild (Pain Scale 1-3) Al Hydroxide/Mg Hydroxide (Magnesium Hydrox/Alum Hydrox 30 Ml Oral.Susp) 30 ml PO Q4H PRN PRN Reason: Heartburn Last Admin: 07/28/21 05:15 Dose: 30 ml Documented by: Amlodipine Besylate (Amlodipine Besylate 2.5 Mg Tablet) 2.5 mg PO DAILY [facility]; Protocol Aripiprazole (Aripiprazole 2 Mg Tablet) 2 mg PO DAILY [facility] Last Admin: 07/29/21 09:16 Dose: 2 mg Documented by: Aspirin (Aspirin 81 Mg Tab.Chew) 81 mg PO DAILY [facility] Last Admin: 07/29/21 09:16 Dose: 81 mg Documented by: Atorvastatin Calcium (Atorvastatin Calcium 40 Mg Tablet) 40 mg PO BEDTIME [facility] Last Admin: 07/28/21 21:00 Dose: 40 mg Documented by: Docusate Sodium (Docusate Sodium 100 Mg Capsule) 100 mg PO BEDTIME [facility] Duloxetine HCl (Duloxetine Hcl 30 Mg Capsule.) 30 mg PO DAILY [facility] Last Admin: 07/29/21 09:16 Dose: 30 mg Documented by: Duloxetine HCl (Duloxetine Hcl 60 Mg Capsule.) 60 mg PO DAILY [facility] Last Admin: 07/29/21 09:17 Dose: 60 mg Documented by: Famotidine (Famotidine/Pf 20 Mg/2 Ml Vial) 20 mg IVPUSH DAILY [facility] Last Admin: 07/29/21 09:15 Dose: 20 mg Documented by: Guaifenesin/Dextromethorphan (Guaifenesin Dm 100/10/5 Ml 5 Ml Syrup) 5 ml PO Q6H [facility] Last Admin: 07/29/21 09:16 Dose: 5 ml Documented by: Heparin Sodium (Porcine) (Heparin Sodium,Porcine 5,000 Unit/Ml Vial) 3,400 unit 40 unit/kg (3400 unit) IVPUSH PROTOCOL BOLUS PRN; Protocol PRN Reason: 40 unit/kg - Heparin Protocol Last Admin: 07/28/21 23:04 Dose: 3,400 unit Documented by: Heparin Sodium (Porcine) (Heparin Sodium,Porcine 5,000 Unit/Ml Vial) 6,800 unit 80 unit/kg (6800 unit) IVPUSH PROTOCOL BOLUS PRN; Protocol PRN Reason: 80 unit/kg - Heparin Protocol Heparin Sodium/Sodium Chloride () 25,000 unit in 250 mls @ 0 mls/hr IVCONT .Q0M [facility]; Protocol Last Titration: 07/29/21 11:50 Dose: 13 units/kg/hr, 11.03 mls/hr Documented by: Ipratropium [place] (Ipratropium [place] 0.5 Mg/2.5 Ml Solution) 0.5 mg INHALE RQ4H WHILE AWAKE [facility] Last Admin: 07/29/21 11:52 Dose: 0.5 mg Documented by: Levalbuterol HCl (Levalbuterol Hcl 1.25 Mg/0.5 Ml Vial.Neb) 1.25 mg INHALE RQ4H WHILE AWAKE [facility] Last Admin: 07/29/21 11:52 Dose: 1.25 mg Documented by: Morphine Sulfate (Morphine Sulfate 2 Mg/Ml Cartridge) 2 mg IVPUSH Q4H PRN; Protocol PRN Reason: Pain, Severe (Pain Scale 7-10) Last Admin: 07/29/21 05:12 Dose: 2 mg Documented by: Nitroglycerin (Nitroglycerin 2 % Oint 1 Gm Packet) 0.5 inch TRANSDERMA RQ6H WHILE AWAKE [facility] Last Admin: 07/29/21 09:16 Dose: 0.5 inch Documented by: Ondansetron HCl (Ondansetron Hcl 4 Mg/2 Ml Vial) 4 mg IVPUSH Q8H PRN PRN Reason: Nausea and Vomiting Pharmacy Consult (Consult Rx Perform Med Rec) 1 each MISCELLANE ONCE PRN PRN Reason: Consult order Polyethylene Glycol (Polyethylene Glycol 3350 17 Gm Powd.Pack) 17 gm PO DAILY [facility] Sodium Chloride (0.9 % Sodium Chloride Flush 3 Ml Syringe) 3 ml IVFLUSH QSHIFT [facility] Last Admin: 07/29/21 07:43 Dose: Not Given Documented by: Time Spent With Patient Time: Total time spent is greater than 50% in coordination of care (as documented) at patient's floor/unit and/or counseling patient: Time with patient: 25 - 35 minutes Progress Note: Quality Stroke Does the patient have a stroke diagnosis?: No Procedures Date of Service Date of Service: 07/29/21
[2021-07-29] MEDS: Atorvastatin Calcium 40 MG TABLET PO (21:30)
[2021-07-29] MEDS: Docusate Sodium 100 MG CAPSULE PO (21:30)
[2021-07-30] MEDS: guaiFENesin DM 100/10/5 ML 5 ML SYRUP PO ×3 (03:20→15:26)
[2021-07-30 05:34] VITALS: BP 154/85; PULSE 60; RESP 16; TEMP 36.6; O2SAT 95
--- NOTE | 2021-07-30 06:41 | PC.NURSE ---
Pt's heparin drip discontinued with Dr. Vieyra's ok.
[2021-07-30 07:22] LABS: MANUAL DIFF FLAG NO
[2021-07-30 07:39] LABS: Anion Gap 12 (12-20); Blood Urea Nitrogen 25 mg/dL (9-16); Calcium 9.1 mg/dL (8.4-10.2); Carbon Dioxide 29 mmol/L (22-29); Chloride 102 mmol/L (96-108); Estimated Glomerular Filt Rate > 60; Glucose Random 89 mg/dL (60-115); Potassium 4.5 mmol/L (3.3-5.1); Sodium 138 mmol/L (135-145)
[2021-07-30] MEDS: Ipratropium Bromide 0.5 MG/2.5 ML SOLUTION INHALE ×3 (07:53→15:12)
[2021-07-30 07:55] VITALS: PULSE 71; RESP 18; O2SAT 99
[2021-07-30 08:30] LABS: Basophils Percent Auto 0.1 % (0-2); Eosinophils Percent Auto 0.2 % (0-4); Hematocrit 36.7 % (42.0-52.0); Hemoglobin 12.1 g/dl (14.0-18.0); Imm Gran Abs Auto 0.48 X10*3/uL (0.00-0.03); Imm Gran Pct Auto 2.9 % (0.0-0.4); Lymphocytes Absolute Auto 1.9 X10*3/uL (1.2-4.9); Lymphocytes Percent Auto 11.4 % (20-40); Mean Corpuscular Hemoglobin 30.1 pg (27.0-33.0); Mean Corpuscular Volume 91.3 fL (80.0-98.0); Mean Platelet Volume 11.4 fL (9.4-12.4); Monocytes Absolute Auto 1.5 X10*3/uL (0.1-1.2); Monocytes Percent Auto 8.8 % (2-11); Neutrophils Absolute Auto 12.8 x10*3/uL (2.0-8.3); Neutrophils Percent Auto 76.6 % (45-73); Platelet Count 199 X10*3/uL (160-400); Red Blood Count 4.02 X10*6/uL (4.60-5.80); Red Cell Distribution Width 13.4 % (11.0-16.0); White Blood Count 16.7 X10*3/uL (4.8-10.8)
[2021-07-30 09:29] VITALS: BP 117/68; PULSE 58; RESP 16; TEMP 36.8; O2SAT 93
[2021-07-30] MEDS: DULoxetine HCl 60 MG CAPSULE.DR PO (09:32)
[2021-07-30] MEDS: Famotidine/PF 20 MG/2 ML VIAL IVPUSH (09:33)
[2021-07-30] MEDS: DULoxetine HCl 30 MG CAPSULE.DR PO (09:33)
[2021-07-30] MEDS: amLODIPine Besylate 2.5 MG TABLET PO (09:33)
[2021-07-30] MEDS: Nitroglycerin 2 % Oint 1 GM Packet 0.5 INCH TRANSDERMA ×2 (09:33→15:25)
[2021-07-30] MEDS: Aspirin 81 MG TAB.CHEW PO (09:33)
[2021-07-30] MEDS: ARIPiprazole 2 MG TABLET PO (09:33)
[2021-07-30] MEDS: polyethylene glycoL 3350 17 GM POWD.PACK PO (09:36)
--- NOTE | 2021-07-30 10:00 | PC.NURSE ---
Pt received from night coordinator: Pt AOx4 and offers no complaints at this time. Heart sounds normal and lungs clear. NSR to sinus antwan on monitor. Pt abd round and non-tender. ASL used for interpretation assistance during medication admin.
--- NOTE | 2021-07-30 10:07 | P.PNIM_ITS ---
Subjective Subjective Date of Service: 07/30/21 Review of Systems Follow-up ACS, cough Still with coughing, back pain Denies chest pain, nausea, vomiting, diarrhea All other systems are reviewed and are negative Physical Exam Vital Signs: Vital Signs: Last Vital Signs Temp 98.2 F 07/30/21 09:29 Pulse 58 07/30/21 09:29 Resp 16 07/30/21 09:29 BP 117/68 07/30/21 09:29 Pulse Ox 93 07/30/21 09:29 BMI result Body Mass Index 27.6 Appearing in no acute distress lung sounds expiratory wheezing heart regular rate rhythm, clear S1, S2 positive bowel sounds, abdomen is soft, nontender neuro patient is alert x3, no focal deficits Objective Data Active Medications Acetaminophen (Acetaminophen 325 Mg Tablet) 650 mg PO Q6H PRN PRN Reason: Pain, Mild (Pain Scale 1-3) Al Hydroxide/Mg Hydroxide (Magnesium Hydrox/Alum Hydrox 30 Ml Oral.Susp) 30 ml PO Q4H PRN PRN Reason: Heartburn Last Admin: 07/28/21 05:15 Dose: 30 ml Documented by: DADA Amlodipine Besylate (Amlodipine Besylate 2.5 Mg Tablet) 2.5 mg PO DAILY [facility]; Protocol Last Admin: 07/30/21 09:33 Dose: 2.5 mg Documented by: HANNA Aripiprazole (Aripiprazole 2 Mg Tablet) 2 mg PO DAILY [facility] Last Admin: 07/30/21 09:33 Dose: 2 mg Documented by: HANNA Aspirin (Aspirin 81 Mg Tab.Chew) 81 mg PO DAILY [facility] Last Admin: 07/30/21 09:33 Dose: 81 mg Documented by: HANNA Atorvastatin Calcium (Atorvastatin Calcium 40 Mg Tablet) 40 mg PO BEDTIME [facility] Last Admin: 07/29/21 21:30 Dose: 40 mg Documented by: DADA Docusate Sodium (Docusate Sodium 100 Mg Capsule) 100 mg PO BEDTIME [facility] Last Admin: 07/29/21 21:30 Dose: 100 mg Documented by: DADA Duloxetine HCl (Duloxetine Hcl 30 Mg Capsule.) 30 mg PO DAILY [facility] Last Admin: 07/30/21 09:33 Dose: 30 mg Documented by: HANNA Duloxetine HCl (Duloxetine Hcl 60 Mg Capsule.) 60 mg PO DAILY [facility] Last Admin: 07/30/21 09:32 Dose: 60 mg Documented by: HANNA Famotidine (Famotidine/Pf 20 Mg/2 Ml Vial) 20 mg IVPUSH DAILY [facility] Last Admin: 07/30/21 09:33 Dose: 20 mg Documented by: HANNA Guaifenesin/Dextromethorphan (Guaifenesin Dm 100/10/5 Ml 5 Ml Syrup) 5 ml PO Q6H [facility] Last Admin: 07/30/21 09:32 Dose: 5 ml Documented by: HANNA Heparin Sodium (Porcine) (Heparin Sodium,Porcine 5,000 Unit/Ml Vial) 3,400 unit 40 unit/kg (3400 unit) IVPUSH PROTOCOL BOLUS PRN; Protocol PRN Reason: 40 unit/kg - Heparin Protocol Last Admin: 07/28/21 23:04 Dose: 3,400 unit Documented by: VALERIA Heparin Sodium (Porcine) (Heparin Sodium,Porcine 5,000 Unit/Ml Vial) 6,800 unit 80 unit/kg (6800 unit) IVPUSH PROTOCOL BOLUS PRN; Protocol PRN Reason: 80 unit/kg - Heparin Protocol Heparin Sodium/Sodium Chloride () 25,000 unit in 250 mls @ 0 mls/hr IVCONT .Q0M [facility]; Protocol Last Titration: 07/29/21 11:50 Dose: 13 units/kg/hr, 11.03 mls/hr Documented by: REAL Cosigned by: NACHO Ipratropium [place] (Ipratropium [place] 0.5 Mg/2.5 Ml Solution) 0.5 mg INHALE RQ4H WHILE AWAKE [facility] Last Admin: 07/30/21 07:53 Dose: 0.5 mg Documented by: SHERRI Levalbuterol HCl (Levalbuterol Hcl 1.25 Mg/0.5 Ml Vial.Neb) 1.25 mg INHALE RQ4H WHILE AWAKE [facility] Last Admin: 07/30/21 07:53 Dose: 1.25 mg Documented by: SHERRI Morphine Sulfate (Morphine Sulfate 2 Mg/Ml Cartridge) 2 mg IVPUSH Q4H PRN; Protocol PRN Reason: Pain, Severe (Pain Scale 7-10) Last Admin: 07/29/21 05:12 Dose: 2 mg Documented by: VALERIA Nitroglycerin (Nitroglycerin 2 % Oint 1 Gm Packet) 0.5 inch TRANSDERMA RQ6H WHILE AWAKE [facility] Last Admin: 07/30/21 09:33 Dose: 0.5 inch Documented by: HANNA Ondansetron HCl (Ondansetron Hcl 4 Mg/2 Ml Vial) 4 mg IVPUSH Q8H PRN PRN Reason: Nausea and Vomiting Pharmacy Consult (Consult Rx Perform Med Rec) 1 each MISCELLANE ONCE PRN PRN Reason: Consult order Polyethylene Glycol (Polyethylene Glycol 3350 17 Gm Powd.Pack) 17 gm PO DAILY [facility] Last Admin: 07/30/21 09:36 Dose: 17 gm Documented by: HANNA Sodium Chloride (0.9 % Sodium Chloride Flush 3 Ml Syringe) 3 ml IVFLUSH QSHIFT [facility] Last Admin: 07/30/21 09:29 Dose: Not Given Documented by: HANNA Non-Admin Reason: Med Not Available Labs CBC & Chem 7: 07/30/21 06:21 07/30/21 06:21 Labs: Laboratory Results - last 24 hr 07/29/21 07/30/21 07/30/21 10:39 06:21 06:21 MCV 91.3 MCH 30.1 MCHC 33.0 RDW 13.4 Plt Count 199 MPV 11.4 Immature Gran % (Auto) 2.9 H Neut % (Auto) 76.6 H Lymph % (Auto) 11.4 L [place] % (Auto) 8.8 Eos % (Auto) 0.2 Baso % (Auto) 0.1 Lymph # (Auto) 1.9 [place] # (Auto) 1.5 H Eos # (Auto) 0.0 Baso # (Auto) 0.0 Abs Immat Gran (auto) 0.48 H Absolute Neuts (auto) 12.8 H Absolute Nucleated RBC 0.000 Nucleated RBC % (auto) 0.0 PTT (Heparin Protocol) 76.5 Anion Gap 12 Estim Creat Clear Calc 90.0 Estimated GFR > 60 Random Glucose 89 D Calcium 9.1 Microbiology Microbiology Results: Microbiology 07/27/21 04:54 Blood Culture - Preliminary Blood - Venous No growth after 48 hours. 07/27/21 05:01 Blood Culture - Preliminary Blood - Venous No growth after 48 hours. Assessment and Plan (1) NSTEMI (non-ST elevated myocardial infarction): Status: Acute (2) Rhinovirus: Status: Acute (3) Acute respiratory failure with hypoxia: Status: Acute Assessment and Plan: This is a 61 yo M with mood disorder presents to [facility] with respiratory complaints which began on the day prior to arrival. He is noted to be tachycardic, hypoxic with scattered wheezing. He will be admitted for further work up and treatment. NSTEMI diffuse ST wave depression on EKG and troponin rising up to 329 suggestive of ACS 48hrs IV heparin completed ASA, statin, nitopaste echo hyperdynamic LFEF >70%; possible apical hypertrophic cardiomyopathy cardiology following,? likely transfer to [facility] for cardiac catheterization once respiratory status improves Acute Respiratory Failure with hypoxia initially requiring supplemental oxygen, now on room air no history of lung disease, non-smoker likely related to rhinovirus CTA negative for PE/pneumonia IV steroids , continue scheduled updrafts (will use xopenex in light of ta chycardia). Nodule noted on CT -- repeat CT recommended in 6-12 months abdominal pain burning in nature but seems to be worse with coughing. in between coughing appears comfortable continue pepcid mood resume home nataly and kvng Full Code Reports his sister as healthcare proxy- Anna [phone] dvt ppx - heparin attending Dr. Nash Quality Stroke Does the patient have a stroke diagnosis?: No VTE Prior VTE?: No VTE Risk Level:: Medical - moderate - high VTE Device Contraindication: Treatment Not Indicated VTE Drug Contraindication: N/A - Med Ordered
[2021-07-30 11:12] VITALS: PULSE 55; RESP 16; O2SAT 99
--- NOTE | 2021-07-30 11:35 | PM.PNCARD ---
Subjective Subjective Date of Service: 07/30/21 Principal diagnosis: Acute bronchitis, acute coronary syndrome Interval history: Cardiology follow up for ACS. Seen at 0815. Today he reports that his breathing is still not at baseline. He has some wheezing and cough present. When he coughs he gets pain along his lateral thorax and abdomen. No other chest pains. No palpitation, dizziness. Able to feed self breakfast. Certified sign languange interpretor used - [employer]. Review of Systems Review of Systems as above Yes all other systems are reviewed and are negative Physical Exam Vital Signs: Last Vital Signs Temp 98.2 F 07/30/21 09:29 Pulse 55 07/30/21 11:12 Resp 16 07/30/21 11:12 BP 117/68 07/30/21 09:29 Pulse Ox 93 07/30/21 09:29 BMI result Body Mass Index 27.6 Const General: cooperative, healthy appearing, no acute distress, alert and awake Orientation/consciousness: patient oriented x3 Neck Neck: Yes normal visual inspection and Yes no JVD Resp Effort & Inspection: normal respiratory effort, able to speak in complete sentences and not labored Auscultation: clear to auscultation bilaterally, no rales and no rhonchi Cardio Rate: regular rate Rhythm: regular rhythm Heart sounds: S1 normal heart sound present and S2 normal heart sound present Peripheral pulses: Peripheral pulses 2+ throughout GI Inspection: Yes normal to inspection Neuro General: patient oriented x3 Extrem General: Yes normal to inspection and No edema Objective Labs and Meds Result diagrams: 07/30/21 06:21 07/30/21 06:21 Lab results: Laboratory Results - last 24 hr 07/29/21 07/30/21 07/30/21 10:39 06:21 06:21 WBC 16.7 H RBC 4.02 L Hgb 12.1 L Hct 36.7 L MCV 91.3 MCH 30.1 MCHC 33.0 RDW 13.4 Plt Count 199 MPV 11.4 Immature Gran % (Auto) 2.9 H Neut % (Auto) 76.6 H Lymph % (Auto) 11.4 L [place] % (Auto) 8.8 Eos % (Auto) 0.2 Baso % (Auto) 0.1 Lymph # (Auto) 1.9 [place] # (Auto) 1.5 H Eos # (Auto) 0.0 Baso # (Auto) 0.0 Abs Immat Gran (auto) 0.48 H Absolute Neuts (auto) 12.8 H Absolute Nucleated RBC 0.000 Nucleated RBC % (auto) 0.0 PTT (Heparin Protocol) 76.5 Sodium 138 Potassium 4.5 Chloride 102 Carbon Dioxide 29 Anion Gap 12 BUN 25 H Creatinine 0.84 Estim Creat Clear Calc 90.0 Estimated GFR > 60 Random Glucose 89 D Calcium 9.1 Progress Note: A&P Assessment and plan (1) Acute coronary syndrome: Status: Acute Assessment and Plan: ACS this admit with elevated troponin up to 329. EKG on 07/[address] depressions. Shortness of breath and atypical chest discomfort. Being treated for bronchitis this admit. Findings consistent with ACS. He recieved Heparin drip for 48 hr. He continues on aspirin, atorvastatin, NTP, amlodipine. No anginal sounding CP. Breathing has improved. Sat 95% on RA. Still has wheezes on exam. Dr Orona notified. Will plan for Cardiac cath at [facility] tomorrow, with transfer today. Pt informed, procedure discussed, risks reviewed. He is agreeable to proceed. (2) Acute respiratory failure with hypoxia: Status: Acute Assessment and Plan: Test show + rhinovirus. Being treated for bronchitis. No longer requiring O2 supplement. Followed by hospitalist (3) Rhinovirus: Status: Acute Fall Risk Details Current Medications: Current Medications Acetaminophen (Acetaminophen 325 Mg Tablet) 650 mg PO Q6H PRN PRN Reason: Pain, Mild (Pain Scale 1-3) Al Hydroxide/Mg Hydroxide (Magnesium Hydrox/Alum Hydrox 30 Ml Oral.Susp) 30 ml PO Q4H PRN PRN Reason: Heartburn Last Admin: 07/28/21 05:15 Dose: 30 ml Documented by: Amlodipine Besylate (Amlodipine Besylate 2.5 Mg Tablet) 2.5 mg PO DAILY [facility]; Protocol Last Admin: 07/30/21 09:33 Dose: 2.5 mg Documented by: Aripiprazole (Aripiprazole 2 Mg Tablet) 2 mg PO DAILY [facility] Last Admin: 07/30/21 09:33 Dose: 2 mg Documented by: Aspirin (Aspirin 81 Mg Tab.Chew) 81 mg PO DAILY [facility] Last Admin: 07/30/21 09:33 Dose: 81 mg Documented by: Atorvastatin Calcium (Atorvastatin Calcium 40 Mg Tablet) 40 mg PO BEDTIME [facility] Last Admin: 07/29/21 21:30 Dose: 40 mg Documented by: Docusate Sodium (Docusate Sodium 100 Mg Capsule) 100 mg PO BEDTIME [facility] Last Admin: 07/29/21 21:30 Dose: 100 mg Documented by: Duloxetine HCl (Duloxetine Hcl 30 Mg Capsule.Dr) 30 mg PO DAILY [facility] Last Admin: 07/30/21 09:33 Dose: 30 mg Documented by: Duloxetine HCl (Duloxetine Hcl 60 Mg Capsule.) 60 mg PO DAILY [facility] Last Admin: 07/30/21 09:32 Dose: 60 mg Documented by: Famotidine (Famotidine/Pf 20 Mg/2 Ml Vial) 20 mg IVPUSH DAILY [facility] Last Admin: 07/30/21 09:33 Dose: 20 mg Documented by: Guaifenesin/Dextromethorphan (Guaifenesin Dm 100/10/5 Ml 5 Ml Syrup) 5 ml PO Q6H [facility] Last Admin: 07/30/21 09:32 Dose: 5 ml Documented by: Heparin Sodium (Porcine) (Heparin Sodium,Porcine 5,000 Unit/Ml Vial) 3,400 unit 40 unit/kg (3400 unit) IVPUSH PROTOCOL BOLUS PRN; Protocol PRN Reason: 40 unit/kg - Heparin Protocol Last Admin: 07/28/21 23:04 Dose: 3,400 unit Documented by: Heparin Sodium (Porcine) (Heparin Sodium,Porcine 5,000 Unit/Ml Vial) 6,800 unit 80 unit/kg (6800 unit) IVPUSH PROTOCOL BOLUS PRN; Protocol PRN Reason: 80 unit/kg - Heparin Protocol Heparin Sodium/Sodium Chloride () 25,000 unit in 250 mls @ 0 mls/hr IVCONT .Q0M [facility]; Protocol Last Titration: 07/29/21 11:50 Dose: 13 units/kg/hr, 11.03 mls/hr Documented by: Ipratropium [place] (Ipratropium [place] 0.5 Mg/2.5 Ml Solution) 0.5 mg INHALE RQ4H WHILE AWAKE [facility] Last Admin: 07/30/21 11:11 Dose: 0.5 mg Documented by: Levalbuterol HCl (Levalbuterol Hcl 1.25 Mg/0.5 Ml Vial.Neb) 1.25 mg INHALE RQ4H WHILE AWAKE [facility] Last Admin: 07/30/21 11:11 Dose: 1.25 mg Documented by: Morphine Sulfate (Morphine Sulfate 2 Mg/Ml Cartridge) 2 mg IVPUSH Q4H PRN; Protocol PRN Reason: Pain, Severe (Pain Scale 7-10) Last Admin: 07/29/21 05:12 Dose: 2 mg Documented by: Nitroglycerin (Nitroglycerin 2 % Oint 1 Gm Packet) 0.5 inch TRANSDERMA RQ6H WHILE AWAKE [facility] Last Admin: 07/30/21 09:33 Dose: 0.5 inch Documented by: Ondansetron HCl (Ondansetron Hcl 4 Mg/2 Ml Vial) 4 mg IVPUSH Q8H PRN PRN Reason: Nausea and Vomiting Pharmacy Consult (Consult Rx Perform Med Rec) 1 each MISCELLANE ONCE PRN PRN Reason: Consult order Polyethylene Glycol (Polyethylene Glycol 3350 17 Gm Powd.Pack) 17 gm PO DAILY [facility] Last Admin: 07/30/21 09:36 Dose: 17 gm Documented by: Sodium Chloride (0.9 % Sodium Chloride Flush 3 Ml Syringe) 3 ml IVFLUSH QSHIFT [facility] Last Admin: 07/30/21 09:29 Dose: Not Given Documented by: Time Spent With Patient Time: Total time spent is greater than 50% in coordination of care (as documented) at patient's floor/unit and/or counseling patient. 20 min with pt and additonal 15 min coordinating [facility] tx Time with patient: 15 - 24 minutes Progress Note: Quality Stroke Does the patient have a stroke diagnosis?: No Procedures Date of Service Date of Service: 07/30/21
[2021-07-30 12:50] LABS: PTT Heparin Drip 27.4 SEC (53-77.9)
[2021-07-30 15:12] VITALS: BP 164/73; PULSE 77; RESP 18; TEMP 36.4; O2SAT 97
[2021-07-30 15:16] VITALS: PULSE 67; RESP 18; O2SAT 98
--- NOTE | 2021-07-30 15:24 | P.DS_ITS ---
DS: Providers Provider Date of Service: 07/30/21 <Brigitte Brandt NP - Last Filed: 07/30/21 15:33> Date of admission: 07/27/21 11:24 <Brigitte Brandt NP - Last Filed: 07/30/21 15:33> Primary care physician: Unknown Physician <Brigitte Brandt NP - Last Filed: 07/30/21 15:33> Consults: 07/27/21 10:43 Consult to Cardiology Routine Consulting Provider: Иван Lindquist Reason for consultation: abnromal EKG, pleurtic type chest pain <Brigitte Brandt NP - Last Filed: 07/30/21 15:33> Attending physician on discharge: Dao Nash <Brigitte Brandt NP - Last Filed: 07/30/21 15:33> Discharging clinician: Brigitte Brandt <Brigitte Brandt NP - Last Filed: 07/30/21 15:33> DS: Diagnosis Discharge Diagnosis (1) NSTEMI (non-ST elevated myocardial infarction): Status: Acute <Brigitte Brandt NP - Last Filed: 07/30/21 15:33> (2) Rhinovirus: Status: Acute <Brigitte Brandt NP - Last Filed: 07/30/21 15:33> (3) Acute respiratory failure with hypoxia: Status: Acute <Brigitte Brandt NP - Last Filed: 07/30/21 15:33> DS: Summary Hospital Course Hospital Course: HP as per admitting provider This is a 61 yo deaf M (uses [place] Sign language, iPad used for translation purposes) who presents to [facility] with complaints of shortness of breath, coughing and pleuritic (bilateral) chest pain worsened with cough and deep inspiration,? which began on the evening prior to presentation. He reports that he was in his usual state of health during the day time but began feeling the symptoms which progressed significantly and so he came to the ED. He reports no fevers or chills. He reports no sick contacts -- COVID or otherwise. He reports being vaccinated for COVID (2 shots + the booster). He reports some abdominal pain which began after his cough spells and now he endorses severe sore throat. He denies any prior such symptoms. He reports that he is a life long non-smoker. Upon arrival to the ED, he was noted to have diffuse wheezing and tachycardia. His oxygen saturation dropped to 87% on RA. He was treated with multiple continuous nebulizer Rx, IV solu-medrol, IV toradol. His chest XR did not show any acute findings, but the patient did not have resolution of his symptoms. The possibility of a LLL infiltrate was noted by the ED provider and he was subsequently given IV Rocephin/Zithromax and admission was requested . NSTEMI. abnormal EKG noted with ST wave depressions in the anterior/inferior leads high sensitivity troponin peaked at 329.0. Patient was treated with 48 hours of IV heparin, started on aspirin and statin. No complaints of chest pain. Transthoracic echocardiogram showed hyperdynamic LV systolic function with EF greater than 70%. Plan is for transfer to [facility] for cardiac catheterization. Acute hypoxic respiratory failure secondary to rhino virus/bronchitis. Oxygen saturation down to 87%, placed on oxygen with good effect. Chest CTA was obtained which ruled out pulmonary embolus. He was started on IV Solu-Medrol and Xopenex due to tachycardia. No major infiltrate found on CTA or chest x- ray. Will continue oral prednisone and may use bronchodilators. <Brigitte Brandt NP - Last Filed: 07/30/21 15:33> Time Spent with Patient Time attestation: Total time spent providing and/or coordinating discharge services: <Brigitte Brandt NP - Last Filed: 07/30/21 15:33> Discharge coordination time: Greater than 30 minutes <Brigitte Brandt NP - Last Filed: 07/30/21 15:33> Quality: Stroke Does the patient have a stroke diagnosis?: No <Brigitte Brandt NP - Last Filed: 07/30/21 15:33> Physical Exam Vital Signs: Vital Signs: Last Vital Signs Temp 97.5 F 07/30/21 15:12 Pulse 67 07/30/21 15:16 Resp 18 07/30/21 15:16 BP 164/73 H 07/30/21 15:12 Pulse Ox 97 07/30/21 15:12 BMI result Body Mass Index 27.6 <Brigitte Brandt NP - Last Filed: 07/30/21 15:33> Appearing in no acute distress head is normocephalic atraumatic eyes pupils are PERRLA sclera is anicteric mouth throat mucous membranes are intact and moist neck is supple no lymphadenopathy, no JVD noted lung sounds are clear to auscultation heart regular rate rhythm, clear S1, S2 positive bowel sounds, abdomen is soft, nontender neuro patient is alert x3, no focal deficits <Brigitte Brandt NP - Last Filed: 07/30/21 15:33> DS: Data Data Completed and Pending Labs on day of discharge: Laboratory Results - last 24 hr 07/30/21 07/30/21 07/30/21 06:21 06:21 12:12 WBC 16.7 H RBC 4.02 L Hgb 12.1 L Hct 36.7 L MCV 91.3 MCH 30.1 MCHC 33.0 RDW 13.4 Plt Count 199 MPV 11.4 Immature Gran % (Auto) 2.9 H Neut % (Auto) 76.6 H Lymph % (Auto) 11.4 L [place] % (Auto) 8.8 Eos % (Auto) 0.2 Baso % (Auto) 0.1 Lymph # (Auto) 1.9 [place] # (Auto) 1.5 H Eos # (Auto) 0.0 Baso # (Auto) 0.0 Abs Immat Gran (auto) 0.48 H Absolute Neuts (auto) 12.8 H Absolute Nucleated RBC 0.000 Nucleated RBC % (auto) 0.0 PTT (Heparin Protocol) 27.4 L D Sodium 138 Potassium 4.5 Chloride 102 Carbon Dioxide 29 Anion Gap 12 BUN 25 H Creatinine 0.84 Estim Creat Clear Calc 90.0 Estimated GFR > 60 Random Glucose 89 D Calcium 9.1 Preliminary micro results at discharge 07/27/21 04:54 Blood Culture - Preliminary Blood - Venous No growth after 48 hours. 07/27/21 05:01 Blood Culture - Preliminary Blood - Venous No growth after 48 hours. <Brigitte Brandt NP - Last Filed: 07/30/21 15:33> Discharge Plan Discharge Anticipated Discharge Date/Time: 07/30/21 15:19 <Brigitte Brandt NP - Last Filed: 07/30/21 15:33> Patient Disposition: [facility] <Brigitte Brandt NP - Last Filed: 07/30/21 15:33> Discharge Diagnosis: NSTEMI Acute hypoxic respiratory failure Rhino virus/bronchitis <Brigitte Brandt NP - Last Filed: 07/30/21 15:33> NSTEMI Acute hypoxic respiratory failure Rhino virus/bronchitis <Dao Nash MD - Last Filed: 07/31/21 09:51> Discharge Medications: New atorvastatin 40 mg Tablet 40 mg PO BEDTIME Qty: 30 RF: 0 amlodipine 2.5 mg Tablet 2.5 mg PO DAILY Qty: 30 RF: 0 aspirin 81 mg Tablet,Chewable 81 mg PO DAILY Qty: 30 RF: 0 prednisone 20 mg tablet 40 mg PO DAILY Qty: 4 RF: 0 Continued zolpidem [Ambien] 10 mg Tablet 10 mg PO BEDTIME PRN (Reason: Insomnia) RF: 0 duloxetine 30 mg Capsule,Delayed Release(Dr/Ec) 30 mg PO DAILY RF: 0 duloxetine 60 mg Capsule,Delayed Release(Dr/Ec) 60 mg PO DAILY RF: 0 aripiprazole [Abilify] 2 mg Tablet 2 mg PO DAILY RF: 0 <Brigitte Brandt NP - Last Filed: 07/30/21 15:33> Discharge Orders: Discharge Order (Routine); Ordered 07/30/21 Ordered By: Brigitte Brandt <Brigitte Brandt NP - Last Filed: 07/30/21 15:33> Diet: advance to usual diet <Brigitte Brandt NP - Last Filed: 07/30/21 15:33> advance to usual diet <Dao Nash MD - Last Filed: 07/31/21 09:51> Activity on Discharge: As tolerated <Brigitte Brandt NP - Last Filed: 07/30/21 15:33> As tolerated <Dao Nash MD - Last Filed: 07/31/21 09:51> Stand Alone Forms: Patient Portal Discharge page <Brigitte Brandt NP - Last Filed: 07/30/21 15:33> Care Plan Goals: Transfer to [facility] for cardiac catheterization <Brigitte Brandt NP - Last Filed: 07/30/21 15:33> Health Concerns: NSTEMI Acute hypoxic respiratory failure Rhino virus <Brigitte Brandt NP - Last Filed: 07/30/21 15:33> Plan of Treatment: Will be transferred to [facility] for a cardiac catheterization He will continue to be treated for rhino virus/bronchitis <Brigitte Brandt NP - Last Filed: 07/30/21 15:33> Assessment: see discharge summary Attending Attestation: I have personally seen and examined the patient independently (on the date of s ervice as documented by NPP), reviewed the NPP history, exam and?MDM and agree with the assessment and plan as?written <Brigitte Brandt NP - Last Filed: 07/30/21 15:33> Discharge Date/Time: 07/30/21 17:00 <Brigitte Brandt NP - Last Filed: 07/30/21 15:33>
[2021-07-30] MEDS: methylPREDNISolone Sod Succ 40 MG/ML VIAL IVPUSH (15:26)
--- NOTE | 2021-07-30 15:56 | PC.NURSE ---
Report given to VIRGIE Hudson from [facility] Room 32 ([phone]). Pending estimated pickup time from ALS. RN will continue to monitor.
--- NOTE | 2021-07-30 16:58 | PC.NURSE ---
[facility] at bedside for transport to [facility] for Cardiac Cath procedure
== END 2021-07-30 17:00 | disposition short-term general hospital (02) | DRG 280 ==
LOC: HO.ED 11:25 → HO.EDOVER 12:14
PROVIDERS: Internal Medicine; Physician Assistant Medical; Admitting Provider Family Medicine; Emergency Provider Emergency Medicine Emergency Medical Services; Visit Provider Nurse Practitioner Acute Care
DX: I21.4 Non-ST elevation (NSTEMI) myocardial infarction (principal); J96.01 Acute respiratory failure with hypoxia; I42.2 Other hypertrophic cardiomyopathy; H91.93 Unspecified hearing loss, bilateral; J20.6 Acute bronchitis due to rhinovirus; F39 Unspecified mood [affective] disorder; Z20.822 Contact with and (suspected) exposure to COVID-19; Z79.82 Long term (current) use of aspirin; Z79.899 Other long term (current) drug therapy
CPT/HCPCS: 36415; 71045; 71275; 80048; 80061; 82803; 83605; 83880; 84145; 84484; 85025; 85027; 85610; 85730; 87040; 87633; 87635; 93005; 93306; 94640; 96365; 96366; 96367; 96375; 99285; 99291; J0456; J0696; J1650; J1885; J2270; J2920; J2930; Q9967

== ENCOUNTER 2022-07-12 14:44 | Emergency (ER) | payer OTHER, MEDICAID, SELFPAY ==
--- NOTE | ~2022-07-12 | CT_ITS ---
EXAMINATION: CT ABDOMEN AND PELVIS WITH CONTRAST CLINICAL INFORMATION: Abdominal pain COMPARISON: CT abdomen 03/11/2017 TECHNIQUE: Multidetector volumetric images were obtained from the superior aspect of the liver through the pubic symphysis following administration 85 mL of Omnipaque 350 intravenous contrast. Sagittal and coronal reformatted images were obtained on the technologist's workstation. Oral contrast: No This CT examination was performed using dose optimization techniques as appropriate, variously including the following: *Automated exposure control *Adjustment of mA and/or kV according to patient size (this includes techniques or standardized protocols for targeted exams where dose is matched to indication/reason for exam; i.e. extremities or head) *Use of iterative reconstruction technique DLP: 1397 mGy-cm FINDINGS: LUNG BASES: Stable 4 mm calcification in the peripheral right lung base. Stable 2 mm nodule adjacent to the left fissure. LIVER, GALLBLADDER, AND BILIARY TREE: The liver is normal in size, shape, and attenuation. No focal hepatic lesion or biliary ductal dilatation is present. Status postcholecystectomy . No extrahepatic biliary dilatation. PANCREAS: Unremarkable. No acute inflammatory changes. SPLEEN: Unremarkable. ADRENAL GLANDS: Unremarkable. KIDNEYS AND URETERS: Subcentimeter small bilateral hypodense renal lesions,, too small to characterize. No renal calculi. There is a 3 mm calculus adjacent to/deep to the right UVJ suggestive of a calculus in this region. No right-sided hydroureteronephrosis. No left renal calculi or hydronephrosis.. BLADDER: 3 mm calculus in the bladder, adjacent to/deep to the right UVJ, suggestive of a calculus in this region. GASTROINTESTINAL TRACT: Small hiatal hernia. Stomach is partially distended with luminal contents. No dilated small bowel loops. Small to moderate stool in the large colon. No acute inflammatory changes identified along the course of the small and large bowel. Normal appendix. No ascites. No free air. ABDOMINAL WALL: Small fat-containing bilateral inguinal hernias. LYMPH NODES: No adenopathy seen. VASCULAR: Normal caliber aorta. PELVIC VISCERA: Enlarged prostate OSSEOUS STRUCTURES: Multilevel degenerative changes in the spine. CT/CT abdomen pelvis w IV con IMPRESSION: 1. There is a 3 mm calculus in the urinary bladder adjacent to/deep to the right UVJ, suggestive of recently passed calculus. Minimal right hydroureteronephrosis seen. 2. Small hiatal hernia. 3. Prostatomegaly.. Fleischner guidelines were followed.
--- NOTE | ~2022-07-12 | CT_ITS ---
EXAMINATION: CT HEAD WITHOUT CONTRAST CLINICAL INFORMATION: Dizziness COMPARISON: None TECHNIQUE: Contiguous axial imaging was performed from the skull base to vertex without intravenous administration of contrast. This CT examination was performed using dose optimization techniques as appropriate, variously including the following: *Automated exposure control *Adjustment of mA and/or kV according to patient size (this includes techniques or standardized protocols for targeted exams where dose is matched to indication/reason for exam; i.e. extremities or head) *Use of iterative reconstruction technique DLP: 1397 mGy-cm FINDINGS: There is no evidence of acute intracranial hemorrhage or edematous territorial infarction. No abnormal mass effect or midline shift is seen. Woody to white matter differentiation is well preserved. No extra-axial fluid collections are identified. The ventricles are normal in size. No abnormal attenuation in the brain parenchyma. No acute calvarial fracture.. Mild ethmoid and sphenoid sinus mucosal thickening. Paranasal sinuses otherwise and mastoid air cells are well-aerated. CT/CT head/brain wo IV con IMPRESSION: No CT evidence of acute intracranial hemorrhage or edematous territorial infarction.
[2022-07-12 15:55] VITALS: BP 146/80; PULSE 74; RESP 18; TEMP 36.7; O2SAT 98; BMI 29.9
--- NOTE | 2022-07-12 15:55 | ED_ITS ---
HPI - General Adult General Chief complaint: General Medical <TINY Jean Baptiste Last Filed: 07/12/22 15:57> Stated complaint: Dizzy Weak <TINY Jean Baptiste Last Filed: 07/12/22 15:57> Time Seen by Provider: 07/12/22 17:47 <TINY Jean Baptiste Last Filed: 07/12/22 15:57> Source: patient and adventure challenge instructor (ASL) <TINY Jean Baptiste Last Filed: 07/12/22 15:57> Mode of arrival: ambulatory <TINY Jean Baptiste Last Filed: 07/12/22 15:57> Limitations: language barrier (ASL) <TINY Jean Baptiste Last Filed: 07/12/22 15:57> History of Present Illness HPI narrative: This is a 62-year-old male presenting to the emergency department with multiple complaints. Patient tells me today when he was walking to the bus he experience dizziness and an upset stomach he tells me it felt like he was going to throw up. He tells me he felt like the room was spinning, he is very uncomfortable. Patient tells me is still feeling dizzy and having some abd ominal discomfort. He is also complaining anxiety, depression, suicidal ideation without plan. He tells me he has been feeling this way for a while, reports that his 6 months ago and since then he has been very upset. He is tearful. Denies HI. Denies hallucinations. Language barrier, patient ASL, device for interpretation broke during conversation, nursing rocket propellant plant supervisor to find a new device to communicate better with patient however did communicate through writing and with help of patient's friend. <TINY Hilton - Last Filed: 07/13/22 01:45> Related Data Allergies/adverse reactions: Allergies Allergy/AdvReac Type Severity Reaction Status Date / Time No Known Allergies Allergy Unverified 04/27/20 15:29 [No Known Allergies*] <TINY Jean Baptiste Last Filed: 07/12/22 15:57> Review of Systems Review of Systems: Constitutional : No Weight loss, No Fever, No Chills, No Fatigue, No Malaise ENT/Mouth : No sore throat, No Rhinorrhea Eyes: No Eye Pain, No Swelling, No Redness Cardiovascular : No Chest Pain, No SOB, No Dyspnea on Exertion, No Orthopnea, No Edema, No Palpitations Respiratory : No Cough, No Sputum, No Wheezing Gastrointestinal : No Nausea, No Vomiting, No Diarrhea, No Constipation, No abdominal Pain, No Hematochezia, No Melena Genitourinary : No Dysuria, No Urinary Frequency, No Hematuria, Musculoskeletal : No joint pain, No Myalgias, No Joint Swelling Skin : No Skin Lesions, No rash Neuro : No Weakness, No Numbness, No Dizziness, No Headache Psych : + Anxiety/Panic, + Depression, + Si, No HI All other systems reviewed and are negative <TINY Hilton - Last Filed: 07/13/22 01:45> Yes all other systems are reviewed and are negative <TINY Hilton - Last Filed: 07/13/22 01:45> [facility] Past Medical History Attestation statement: The following information was validated with the patient. <TINY Hilton - Last Filed: 07/13/22 01:45> Source: old records reviewed and nursing notes reviewed <TINY Hilton - Last Filed: 07/13/22 01:45> Social History Social History: Social History Smoked in Last 30 Days: No Advance Directives: No Advance Directives Information Provided: No <TINY Jean Baptiste - Last Filed: 07/12/22 15:57> Physical Exam ED Vital Signs: Vital Signs - 24 hr 07/12/22 15:55 07/12/22 22:17 07/12/22 22:21 Temperature 98.0 F 97.8 F Pulse Rate 74 51 Respiratory Rate 18 Blood Pressure 146/80 H 153/69 H 111/71 Pulse Oximetry 98 97 Oxygen Delivery Method Room Air Room Air 07/12/22 22:17 07/12/22 22:19 07/13/22 00:44 Temperature Pulse Rate 68 Respiratory Rate Blood Pressure 114/64 111/71 156/57 H Pulse Oximetry Oxygen Delivery Method 07/13/22 00:46 07/13/22 00:49 07/13/22 01:30 Temperature Pulse Rate 71 72 59 Respiratory Rate Blood Pressure 124/42 L 172/106 H 148/57 H Pulse Oximetry Oxygen Delivery Method 07/13/22 01:33 07/13/22 01:35 07/13/22 02:00 Temperature 98.2 F Pulse Rate 61 66 59 Respiratory Rate 16 Blood Pressure 142/65 H 147/62 H 142/65 H Pulse Oximetry 96 Oxygen Delivery Method Room Air 07/13/22 04:00 07/13/22 06:00 07/13/22 09:37 Temperature 98.3 F 97.8 F 97.7 F Pulse Rate 103 H 64 55 Respiratory Rate 15 16 15 Blood Pressure 122/75 142/84 H 143/59 H Pulse Oximetry 93 98 97 Oxygen Delivery Method Room Air Room Air Room Air BMI result Body Mass Index 29.9 <TINY Jean Baptiste - Last Filed: 07/12/22 15:57> Vital Signs - 24 hr 07/12/22 15:55 07/12/22 22:17 07/12/22 22:21 Temperature 98.0 F 97.8 F Pulse Rate 74 51 Respiratory Rate 18 Blood Pressure 146/80 H 153/69 H 111/71 Pulse Oximetry 98 97 Oxygen Delivery Method Room Air Room Air 07/12/22 22:17 07/12/22 22:19 07/13/22 00:44 Temperature Pulse Rate 68 Respiratory Rate Blood Pressure 114/64 111/71 156/57 H Pulse Oximetry Oxygen Delivery Method 07/13/22 00:46 07/13/22 00:49 07/13/22 01:30 Temperature Pulse Rate 71 72 59 Respiratory Rate Blood Pressure 124/42 L 172/106 H 148/57 H Pulse Oximetry Oxygen Delivery Method 07/13/22 01:33 07/13/22 01:35 07/13/22 02:00 Temperature 98.2 F Pulse Rate 61 66 59 Respiratory Rate 16 Blood Pressure 142/65 H 147/62 H 142/65 H Pulse Oximetry 96 Oxygen Delivery Method Room Air 07/13/22 04:00 07/13/22 06:00 07/13/22 09:37 Temperature 98.3 F 97.8 F 97.7 F Pulse Rate 103 H 64 55 Respiratory Rate 15 16 15 Blood Pressure 122/75 142/84 H 143/59 H Pulse Oximetry 93 98 97 Oxygen Delivery Method Room Air Room Air Room Air BMI result Body Mass Index 29.9 vss <TINY Hilton - Last Filed: 07/13/22 01:45> Vital Signs - 24 hr 07/12/22 15:55 07/12/22 22:17 07/12/22 22:21 Temperature 98.0 F 97.8 F Pulse Rate 74 51 Respiratory Rate 18 Blood Pressure 146/80 H 153/69 H 111/71 Pulse Oximetry 98 97 Oxygen Delivery Method Room Air Room Air 07/12/22 22:17 07/12/22 22:19 07/13/22 00:44 Temperature Pulse Rate 68 Respiratory Rate Blood Pressure 114/64 111/71 156/57 H Pulse Oximetry Oxygen Delivery Method 07/13/22 00:46 07/13/22 00:49 07/13/22 01:30 Temperature Pulse Rate 71 72 59 Respiratory Rate Blood Pressure 124/42 L 172/106 H 148/57 H Pulse Oximetry Oxygen Delivery Method 07/13/22 01:33 07/13/22 01:35 07/13/22 02:00 Temperature 98.2 F Pulse Rate 61 66 59 Respiratory Rate 16 Blood Pressure 142/65 H 147/62 H 142/65 H Pulse Oximetry 96 Oxygen Delivery Method Room Air 07/13/22 04:00 07/13/22 06:00 07/13/22 09:37 Temperature 98.3 F 97.8 F 97.7 F Pulse Rate 103 H 64 55 Respiratory Rate 15 16 15 Blood Pressure 122/75 142/84 H 143/59 H Pulse Oximetry 93 98 97 Oxygen Delivery Method Room Air Room Air Room Air BMI result Body Mass Index 29.9 <Dima Isidro MD - Last Filed: 07/13/22 08:00> Vital Signs - 24 hr 07/12/22 15:55 07/12/22 22:17 07/12/22 22:21 Temperature 98.0 F 97.8 F Pulse Rate 74 51 Respiratory Rate 18 Blood Pressure 146/80 H 153/69 H 111/71 Pulse Oximetry 98 97 Oxygen Delivery Method Room Air Room Air 07/12/22 22:17 07/12/22 22:19 07/13/22 00:44 Temperature Pulse Rate 68 Respiratory Rate Blood Pressure 114/64 111/71 156/57 H Pulse Oximetry Oxygen Delivery Method 07/13/22 00:46 07/13/22 00:49 07/13/22 01:30 Temperature Pulse Rate 71 72 59 Respiratory Rate Blood Pressure 124/42 L 172/106 H 148/57 H Pulse Oximetry Oxygen Delivery Method 07/13/22 01:33 07/13/22 01:35 07/13/22 02:00 Temperature 98.2 F Pulse Rate 61 66 59 Respiratory Rate 16 Blood Pressure 142/65 H 147/62 H 142/65 H Pulse Oximetry 96 Oxygen Delivery Method Room Air 07/13/22 04:00 07/13/22 06:00 07/13/22 09:37 Temperature 98.3 F 97.8 F 97.7 F Pulse Rate 103 H 64 55 Respiratory Rate 15 16 15 Blood Pressure 122/75 142/84 H 143/59 H Pulse Oximetry 93 98 97 Oxygen Delivery Method Room Air Room Air Room Air BMI result Body Mass Index 29.9 <TINY Hicks - Last Filed: 07/13/22 10:28> Appearance: Alert.? Oriented X3.? No acute distress.? Head: Normocephalic, atraumatic, no step-offs or deformities Eyes: Pupils equal, round and reactive to light.? CVS: Normal heart rate and rhythm.? Pulses normal.? Respiratory: No respiratory distress.? Breath sounds normal.? Abdomen: Soft and diffusely tender.? Skin: Skin warm and dry.? Normal skin color.? Normal skin turgor.? Extremities: No lower extremity edema.? No calf ttp. 5/5 strength to bilateral upper and lower extremities Neuro: Oriented X 3.? No motor deficit.? No sensory deficit. CN 2-12 intact . Ambulating with steady gait. Normal [id number], [id number], normal rapid alternating movements. Negative pronator drift. NIHSS-0 <TINY Hilton - Last Filed: 07/13/22 01:45> Course Course Course Narrative: RME performed by Lorrie Palmubo PA-C. 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 Patient states that he think this may be because his spouse recently (6 months ago) and he has been thinking about him a lot recently. CBC, CMP, UA, COVID/Influenza/RSV swab ordered. <TINY Jean Baptiste Last Filed: 07/12/22 15:57> Reevaluation(s) Reevaluation #1: Patient's CBC appears to be within normal limits, slight normocytic anemia, patient is noted to have slightly elevated BUN likely secondary to dehydration which could be contributing to dizziness, orthostatics pending. No other electrolyte abnormalities requiring intervention. Ordered troponin an EKG as patient is having abdominal pain. However low suspicion for ACS. <TINY Hilton - Last Filed: 07/13/22 01:45> Time: 18:21 <TINY Hilton - Last Filed: 07/13/22 01:45> Reevaluation #2: Troponin negative, EKG nonischemic. CT of the abdomen pelvis shows a 3 mm stone in the urinary bladder, likely patient passed stone. This could have co ntributed to patient's abdominal pain earlier, there is a small hiatal hernia enlarged prostate, CT of the head with no acute findings. <TINY Hilton - Last Filed: 07/13/22 01:45> Time: 21:21 <TINY Hilton - Last Filed: 07/13/22 01:45> Reevaluation #3: Discuss abdominal CT findings and CT of the head with patient. Telling me his dizziness is better. To note there have been intermittent issues with the oil expeller, the iPad has been breaking, adventure challenge instructor services involved and requesting an inpatient adventure challenge instructor. And patient her Prader not needed on an emergent basis, they will be here tomorrow. Patient was evaluated by the care team where he did tell them that he was feeling anxious, depressed and having intermittent hallucinations to them he denied suicidal and homicidal ideation, however care team also felt as though it is difficult to communicate with patient, patient will be a re-evaluation in the morning when an inpatient adventure challenge instructor calms, adventure challenge instructor services did request for adventure challenge instructor to [facility] like [place] around 09:00. Patient given medication for pain although he does state his pain is improving, patient's symptoms could have been secondary to him passing a kidney stone. He is telling me he is feeling much better, he tells me when he sleeps his symptoms are completely gone. He has been resting in the department without difficulty. Tolerating p.o.. Appears well, appears to be in no acute distress. Patient's orthostatic vitals positive for orthostatic hypotension. Will hydrate and re-evaluate. Urine pending. <TINY Hilton - Last Filed: 07/13/22 01:45> Time: 23:06 <TINY Hilton - Last Filed: 07/13/22 01:45> Additional Reevaluation(s): Urine clean. Normal eyes orthostatic vitals after fluids. Patient feels better. At this time patient will be placed into observation. I did give sign- out to Dr. Isidro. Pending crisis eval in AM. Patient feeling better. Ambulatory w/ steady gait. <TINY Hilton - Last Filed: 07/13/22 01:45> Urine clean. Normal eyes orthostatic vitals after fluids. Patient feels better. At this time patient will be placed into observation. I did give sign- out to Dr. Isidro. Pending crisis eval in AM. Patient feeling better. Ambulatory w/ steady gait. 0759: Physician observation continued: Patient did complain of pain in his legs and was treated with morphine 15 mg orally. Patient remained calm and cooperative during my shift. The patient will be kept in physician observation until he can be re-evaluated this morning by the care team using molecular geneticist to make sure that he is not suicidal or homicidal and can be safely discharged home <Dima Isidro MD - Last Filed: 07/13/22 08:00> Urine clean. Normal orthostatic vitals after fluids. Patient feels better. At this time patient will be placed into observation. I did give sign- out to Dr. Isidro. Pending crisis eval in AM. Patient feeling better. Ambulatory w/ steady gait. 0759: Physician observation continued: Patient did complain of pain in his legs and was treated with morphine 15 mg orally. Patient remained calm and cooperative during my shift. The patient will be kept in physician observation until he can be re-evaluated this morning by the care team using molecular geneticist to make sure that he is not suicidal or homicidal and can be safely discharged home 07/13/22 @ 10:27 am - physician observation continued. Pending director of pharmacy. Pending care team evaluation. Will continue to monitor. <TINY Hicks - Last Filed: 07/13/22 10:28> Medications Administered Discontinued Medications Generic Name Dose Route Start Last Admin Trade Name Natalia PRN Reason Stop Dose Admin Acetaminophen 975 mg 07/13/22 09:19 07/13/22 09:41 Acetaminophen 325 Mg Tablet PO 07/13/22 09:20 975 mg ONCE ONE Administration Sodium Chloride 1,000 mls @ 999 mls/hr 07/12/22 23:15 07/13/22 00:55 Ns IV 07/13/22 00:15 Infused .Q1H1M DAVID Infusion Sodium Chloride 1,000 mls @ 999 mls/hr 07/12/22 23:15 07/13/22 01:57 Ns IV 07/13/22 00:15 Infused .Q1H1M DAVID Infusion Sodium Chloride 1,000 mls @ 999 mls/hr 07/12/22 23:15 07/13/22 03:18 Ns IV 07/13/22 00:15 Infused .Q1H1M DAVID Infusion Ibuprofen 600 mg 07/13/22 09:19 07/13/22 09:41 Ibuprofen 600 Mg Tablet PO 07/13/22 09:20 600 mg ONCE ONE Administration Iohexol 100 ml 07/12/22 19:07 07/12/22 19:08 Iohexol 350 Mg/Ml 100 Ml Infus..Btl IV 07/12/22 19:08 85 ml ONCE ONE Administration Ketorolac Tromethamine 30 mg 07/12/22 22:36 07/12/22 23:45 Ketorolac Tromethamine 15 Mg/Ml Vial IVPUSH 07/12/22 22:37 30 mg ONCE ONE Administration Meclizine HCl 25 mg 07/12/22 23:08 07/12/22 23:46 Meclizine Hcl 25 Mg Tablet PO 07/12/22 23:09 25 mg ONCE ONE Administration Morphine Sulfate 15 mg 07/13/22 00:56 07/13/22 01:43 Morphine Sulfate Immed Release 15 Mg Tablet PO 07/13/22 00:57 15 mg ONCE ONE Administration Morphine Sulfate 15 mg 07/13/22 03:27 07/13/22 03:33 Morphine Sulfate Immed Release 15 Mg Tablet PO 07/13/22 03:28 15 mg ONCE STA Administration Oxybutynin Chloride 5 mg 07/13/22 09:19 07/13/22 09:41 Oxybutynin Chloride Er 5 Mg Tab.Er.24 PO 07/13/22 09:20 5 mg ONCE ONE Administration <TINY Jean Baptiste - Last Filed: 07/12/22 15:57> Medications Administered Discontinued Medications Generic Name Dose Route Start Last Admin Trade Name Natalia PRN Reason Stop Dose Admin Acetaminophen 975 mg 07/13/22 09:19 07/13/22 09:41 Acetaminophen 325 Mg Tablet PO 07/13/22 09:20 975 mg ONCE ONE Administration Sodium Chloride 1,000 mls @ 999 mls/hr 07/12/22 23:15 07/13/22 00:55 Ns IV 07/13/22 00:15 Infused .Q1H1M DAVID Infusion Sodium Chloride 1,000 mls @ 999 mls/hr 07/12/22 23:15 07/13/22 01:57 Ns IV 07/13/22 00:15 Infused .Q1H1M DAVID Infusion Sodium Chloride 1,000 mls @ 999 mls/hr 07/12/22 23:15 07/13/22 03:18 Ns IV 07/13/22 00:15 Infused .Q1H1M DAVID Infusion Ibuprofen 600 mg 07/13/22 09:19 07/13/22 09:41 Ibuprofen 600 Mg Tablet PO 07/13/22 09:20 600 mg ONCE ONE Administration Iohexol 100 ml 07/12/22 19:07 07/12/22 19:08 Iohexol 350 Mg/Ml 100 Ml Infus..Btl IV 07/12/22 19:08 85 ml ONCE ONE Administration Ketorolac Tromethamine 30 mg 07/12/22 22:36 07/12/22 23:45 Ketorolac Tromethamine 15 Mg/Ml Vial IVPUSH 07/12/22 22:37 30 mg ONCE ONE Administration Meclizine HCl 25 mg 07/12/22 23:08 07/12/22 23:46 Meclizine Hcl 25 Mg Tablet PO 07/12/22 23:09 25 mg ONCE ONE Administration Morphine Sulfate 15 mg 07/13/22 00:56 07/13/22 01:43 Morphine Sulfate Immed Release 15 Mg Tablet PO 07/13/22 00:57 15 mg ONCE ONE Administration Morphine Sulfate 15 mg 07/13/22 03:27 07/13/22 03:33 Morphine Sulfate Immed Release 15 Mg Tablet PO 07/13/22 03:28 15 mg ONCE STA Administration Oxybutynin Chloride 5 mg 07/13/22 09:19 07/13/22 09:41 Oxybutynin Chloride Er 5 Mg Tab.Er.24 PO 07/13/22 09:20 5 mg ONCE ONE Administration <TINY Hilton - Last Filed: 07/13/22 01:45> Medications Administered Discontinued Medications Generic Name Dose Route Start Last Admin Trade Name Natalia PRN Reason Stop Dose Admin Acetaminophen 975 mg 07/13/22 09:19 07/13/22 09:41 Acetaminophen 325 Mg Tablet PO 07/13/22 09:20 975 mg ONCE ONE Administration Sodium Chloride 1,000 mls @ 999 mls/hr 07/12/22 23:15 07/13/22 00:55 Ns IV 07/13/22 00:15 Infused .Q1H1M DAVID Infusion Sodium Chloride 1,000 mls @ 999 mls/hr 07/12/22 23:15 07/13/22 01:57 Ns IV 07/13/22 00:15 Infused .Q1H1M DAVID Infusion Sodium Chloride 1,000 mls @ 999 mls/hr 07/12/22 23:15 07/13/22 03:18 Ns IV 07/13/22 00:15 Infused .Q1H1M DAVID Infusion Ibuprofen 600 mg 07/13/22 09:19 07/13/22 09:41 Ibuprofen 600 Mg Tablet PO 07/13/22 09:20 600 mg ONCE ONE Administration Iohexol 100 ml 07/12/22 19:07 07/12/22 19:08 Iohexol 350 Mg/Ml 100 Ml Infus..Btl IV 07/12/22 19:08 85 ml ONCE ONE Administration Ketorolac Tromethamine 30 mg 07/12/22 22:36 07/12/22 23:45 Ketorolac Tromethamine 15 Mg/Ml Vial IVPUSH 07/12/22 22:37 30 mg ONCE ONE Administration Meclizine HCl 25 mg 07/12/22 23:08 07/12/22 23:46 Meclizine Hcl 25 Mg Tablet PO 07/12/22 23:09 25 mg ONCE ONE Administration Morphine Sulfate 15 mg 07/13/22 00:56 07/13/22 01:43 Morphine Sulfate Immed Release 15 Mg Tablet PO 07/13/22 00:57 15 mg ONCE ONE Administration Morphine Sulfate 15 mg 07/13/22 03:27 07/13/22 03:33 Morphine Sulfate Immed Release 15 Mg Tablet PO 07/13/22 03:28 15 mg ONCE STA Administration Oxybutynin Chloride 5 mg 07/13/22 09:19 07/13/22 09:41 Oxybutynin Chloride Er 5 Mg Tab.Er.24 PO 07/13/22 09:20 5 mg ONCE ONE Administration <Dima Isidro MD - Last Filed: 07/13/22 08:00> Medications Administered Discontinued Medications Generic Name Dose Route Start Last Admin Trade Name Prietoq PRN Reason Stop Dose Admin Acetaminophen 975 mg 07/13/22 09:19 07/13/22 09:41 Acetaminophen 325 Mg Tablet PO 07/13/22 09:20 975 mg ONCE ONE Administration Sodium Chloride 1,000 mls @ 999 mls/hr 07/12/22 23:15 07/13/22 00:55 Ns IV 07/13/22 00:15 Infused .Q1H1M DAVID Infusion Sodium Chloride 1,000 mls @ 999 mls/hr 07/12/22 23:15 07/13/22 01:57 Ns IV 07/13/22 00:15 Infused .Q1H1M DAVID Infusion Sodium Chloride 1,000 mls @ 999 mls/hr 07/12/22 23:15 07/13/22 03:18 Ns IV 07/13/22 00:15 Infused .Q1H1M DAVID Infusion Ibuprofen 600 mg 07/13/22 09:19 07/13/22 09:41 Ibuprofen 600 Mg Tablet PO 07/13/22 09:20 600 mg ONCE ONE Administration Iohexol 100 ml 07/12/22 19:07 07/12/22 19:08 Iohexol 350 Mg/Ml 100 Ml Infus..Btl IV 07/12/22 19:08 85 ml ONCE ONE Administration Ketorolac Tromethamine 30 mg 07/12/22 22:36 07/12/22 23:45 Ketorolac Tromethamine 15 Mg/Ml Vial IVPUSH 07/12/22 22:37 30 mg ONCE ONE Administration Meclizine HCl 25 mg 07/12/22 23:08 07/12/22 23:46 Meclizine Hcl 25 Mg Tablet PO 07/12/22 23:09 25 mg ONCE ONE Administration Morphine Sulfate 15 mg 07/13/22 00:56 07/13/22 01:43 Morphine Sulfate Immed Release 15 Mg Tablet PO 07/13/22 00:57 15 mg ONCE ONE Administration Morphine Sulfate 15 mg 07/13/22 03:27 07/13/22 03:33 Morphine Sulfate Immed Release 15 Mg Tablet PO 07/13/22 03:28 15 mg ONCE STA Administration Oxybutynin Chloride 5 mg 07/13/22 09:19 07/13/22 09:41 Oxybutynin Chloride Er 5 Mg Tab.Er.24 PO 07/13/22 09:20 5 mg ONCE ONE Administration <TINY Hicks - Last Filed: 07/13/22 10:28> Medical Decision Making MDM Narrative Medical decision making narrative: 1800 62 year old male presents w/ dizziness, abd discomfort, SI, anxiety, depression X2 days PE benign Likely dehydration, electrolyte abnormalities orthostatic hypotension. I do not suspect stroke, posterior stroke, intracranial hemorrhage. Abdominal pain likely abdominal cramping or gas pain, I do not suspect acute abdomen, appendicitis, cholecystitis, pancreatitis, diverticulitis. Plan labs, medical clearance. Will obtain CT of abdomen pelvis, head. <TINY Hilton - Last Filed: 07/13/22 01:45> Medical Records Medical records reviewed: Yes I reviewed the patient's medical records. <TINY Hilton - Last Filed: 07/13/22 01:45> Lab Data Lab results reviewed: Yes I reviewed the patient's lab results. <TINY Hilton - Last Filed: 07/13/22 01:45> Result diagrams: : 07/12/22 17:07 07/12/22 17:07 <TINY Jean Baptiste - Last Filed: 07/12/22 15:57> Labs: Lab Results 07/12/22 07/12/22 07/12/22 Range/Units 17:07 17:07 17:07 WBC 8.7 (4.8-10.8) X10*3/uL RBC 4.55 L (4.60-5.80) X10*6/uL Hgb 13.8 L (14.0-18.0) g/dl Hct 39.8 L (42.0-52.0) % MCV 87.5 (80.0-98.0) fL MCH 30.3 (27.0-33.0) pg MCHC 34.7 (31.0-36.0) g/dl RDW 13.2 (11.0-16.0) % Plt Count 198 (160-400) X10*3/uL MPV 10.3 (9.4-12.4) fL Immature Gran % (Auto) 1.5 H (0.0-0.4) % Neut % (Auto) 69.9 (45-73) % Lymph % (Auto) 17.6 L (20-40) % Maverick % (Auto) 8.4 (2-11) % Eos % (Auto) 2.5 (0-4) % Baso % (Auto) 0.1 (0-2) % Lymph # (Auto) 1.5 (1.2-4.9) X10*3/uL [place] # (Auto) 0.7 (0.1-1.2) X10*3/uL Eos # (Auto) 0.2 (0.0-0.4) X10*3/uL Baso # (Auto) 0.0 (0.0-0.2) X10*3/uL Abs Immat Gran (auto) 0.13 H (0.00-0.03) X10*3/uL Absolute Neuts (auto) 6.0 (2.0-8.3) x10*3/uL Absolute Nucleated RBC 0.000 (0.0-0.012) X10*3/uL Nucleated RBC % (auto) 0.0 (0.0-0.2) /100WBC Sodium 138 (135-145) mmol/L Potassium 4.1 (3.3-5.1) mmol/L Chloride 105 (96-108) mmol/L Carbon Dioxide 27 (22-29) mmol/L Anion Gap 10 L (12-20) BUN 23 H (9-16) mg/dL Creatinine 0.94 (0.5-1.4) mg/dL Estim Creat Clear Calc 78.1 Estimated GFR > 60 Random Glucose 104 (60-115) mg/dL Calcium 9.4 (8.4-10.2) mg/dL Magnesium 2.1 (1.6-2.6) mg/dL Total Bilirubin 0.4 (0.0-1.0) mg/dL AST 14 (5-37) U/L ALT 16 (0-40) U/L Alkaline Phosphatase 65 (39-117) U/L Troponin I High Sens (<3.5-35.0) ng/L Total Protein 6.9 (6.5-8.0) g/dL Albumin 4.3 (3.5-5.0) g/dL Urine Color Urine Appearance Urine pH (5.0-9.0) Ur Specific [place] (1.005-1.025) Urine Protein (Neg-Trace) mg/dL Urine Glucose (UA) (Negative) mg/dL Urine Ketones (Negative) mg/dL Urine Blood (Negative) Urine Nitrite (Negative) Ur Leukocyte Esterase (Negative) Influenza Type A (PCR) NEGATIVE (Negative) Influenza Type B (PCR) NEGATIVE (Negative) RSV RNA Qual (PCR) NEGATIVE (Negative) SARS-CoV-2 RNA (RT-PCR) NEGATIVE (Negative) 07/12/22 07/13/22 Range/Units 17:07 01:19 WBC (4.8-10.8) X10*3/uL RBC (4.60-5.80) X10*6/uL Hgb (14.0-18.0) g/dl Hct (42.0-52.0) % MCV (80.0-98.0) fL MCH (27.0-33.0) pg MCHC (31.0-36.0) g/dl RDW (11.0-16.0) % Plt Count (160-400) X10*3/uL MPV (9.4-12.4) fL Immature Gran % (Auto) (0.0-0.4) % Neut % (Auto) (45-73) % Lymph % (Auto) (20-40) % Maverick % (Auto) (2-11) % Eos % (Auto) (0-4) % Baso % (Auto) (0-2) % Lymph # (Auto) (1.2-4.9) X10*3/uL [place] # (Auto) (0.1-1.2) X10*3/uL Eos # (Auto) (0.0-0.4) X10*3/uL Baso # (Auto) (0.0-0.2) X10*3/uL Abs Immat Gran (auto) (0.00-0.03) X10*3/uL Absolute Neuts (auto) (2.0-8.3) x10*3/uL Absolute Nucleated RBC (0.0-0.012) X10*3/uL Nucleated RBC % (auto) (0.0-0.2) /100WBC Sodium (135-145) mmol/L Potassium (3.3-5.1) mmol/L Chloride (96-108) mmol/L Carbon Dioxide (22-29) mmol/L Anion Gap (12-20) BUN (9-16) mg/dL Creatinine (0.5-1.4) mg/dL Estim Creat Clear Calc Estimated GFR Random Glucose (60-115) mg/dL Calcium (8.4-10.2) mg/dL Magnesium (1.6-2.6) mg/dL Total Bilirubin (0.0-1.0) mg/dL AST (5-37) U/L ALT (0-40) U/L Alkaline Phosphatase (39-117) U/L Troponin I High Sens 4.0 (<3.5-35.0) ng/L Total Protein (6.5-8.0) g/dL Albumin (3.5-5.0) g/dL Urine Color Yellow Urine Appearance Clear Urine pH 6.5 (5.0-9.0) Ur Specific [facility] [place] >= 1.030 H (1.005-1.025) Urine Protein Negative (Neg-Trace) mg/dL Urine Glucose (UA) Negative (Negative) mg/dL Urine Ketones Negative (Negative) mg/dL Urine Blood Negative (Negative) Urine Nitrite Negative (Negative) Ur Leukocyte Esterase Negative (Negative) Influenza Type A (PCR) (Negative) Influenza Type B (PCR) (Negative) RSV RNA Qual (PCR) (Negative) SARS-CoV-2 RNA (RT-PCR) (Negative) <TINY Jean Baptiste - Last Filed: 07/12/22 15:57> Lab Results 07/12/22 07/12/22 07/12/22 Range/Units 17:07 17:07 17:07 WBC 8.7 (4.8-10.8) X10*3/uL RBC 4.55 L (4.60-5.80) X10*6/uL Hgb 13.8 L (14.0-18.0) g/dl Hct 39.8 L (42.0-52.0) % MCV 87.5 (80.0-98.0) fL MCH 30.3 (27.0-33.0) pg MCHC 34.7 (31.0-36.0) g/dl RDW 13.2 (11.0-16.0) % Plt Count 198 (160-400) X10*3/uL MPV 10.3 (9.4-12.4) fL Immature Gran % (Auto) 1.5 H (0.0-0.4) % Neut % (Auto) 69.9 (45-73) % Lymph % (Auto) 17.6 L (20-40) % Maverick % (Auto) 8.4 (2-11) % Eos % (Auto) 2.5 (0-4) % Baso % (Auto) 0.1 (0-2) % Lymph # (Auto) 1.5 (1.2-4.9) X10*3/uL Maverick # (Auto) 0.7 (0.1-1.2) X10*3/uL Eos # (Auto) 0.2 (0.0-0.4) X10*3/uL Baso # (Auto) 0.0 (0.0-0.2) X10*3/uL Abs Immat Gran (auto) 0.13 H (0.00-0.03) X10*3/uL Absolute Neuts (auto) 6.0 (2.0-8.3) x10*3/uL Absolute Nucleated RBC 0.000 (0.0-0.012) X10*3/uL Nucleated RBC % (auto) 0.0 (0.0-0.2) /100WBC Sodium 138 (135-145) mmol/L Potassium 4.1 (3.3-5.1) mmol/L Chloride 105 (96-108) mmol/L Carbon Dioxide 27 (22-29) mmol/L Anion Gap 10 L (12-20) BUN 23 H (9-16) mg/dL Creatinine 0.94 (0.5-1.4) mg/dL Estim Creat Clear Calc 78.1 Estimated GFR > 60 Random Glucose 104 (60-115) mg/dL Calcium 9.4 (8.4-10.2) mg/dL Magnesium 2.1 (1.6-2.6) mg/dL Total Bilirubin 0.4 (0.0-1.0) mg/dL AST 14 (5-37) U/L ALT 16 (0-40) U/L Alkaline Phosphatase 65 (39-117) U/L Troponin I High Sens (<3.5-35.0) ng/L Total Protein 6.9 (6.5-8.0) g/dL Albumin 4.3 (3.5-5.0) g/dL Urine Color Urine Appearance Urine pH (5.0-9.0) Ur Specific [facility] (1.005-1.025) Urine Protein (Neg-Trace) mg/dL Urine Glucose (UA) (Negative) mg/dL Urine Ketones (Negative) mg/dL Urine Blood (Negative) Urine Nitrite (Negative) Ur Leukocyte Esterase (Negative) Influenza Type A (PCR) NEGATIVE (Negative) Influenza Type B (PCR) NEGATIVE (Negative) RSV RNA Qual (PCR) NEGATIVE (Negative) SARS-CoV-2 RNA (RT-PCR) NEGATIVE (Negative) 07/12/22 07/13/22 Range/Units 17:07 01:19 WBC (4.8-10.8) X10*3/uL RBC (4.60-5.80) X10*6/uL Hgb (14.0-18.0) g/dl Hct (42.0-52.0) % MCV (80.0-98.0) fL MCH (27.0-33.0) pg MCHC (31.0-36.0) g/dl RDW (11.0-16.0) % Plt Count (160-400) X10*3/uL MPV (9.4-12.4) fL Immature Gran % (Auto) (0.0-0.4) % Neut % (Auto) (45-73) % Lymph % (Auto) (20-40) % Maverick % (Auto) (2-11) % Eos % (Auto) (0-4) % Baso % (Auto) (0-2) % Lymph # (Auto) (1.2-4.9) X10*3/uL Maverick # (Auto) (0.1-1.2) X10*3/uL Eos # (Auto) (0.0-0.4) X10*3/uL Baso # (Auto) (0.0-0.2) X10*3/uL Abs Immat Gran (auto) (0.00-0.03) X10*3/uL Absolute Neuts (auto) (2.0-8.3) x10*3/uL Absolute Nucleated RBC (0.0-0.012) X10*3/uL Nucleated RBC % (auto) (0.0-0.2) /100WBC Sodium (135-145) mmol/L Potassium (3.3-5.1) mmol/L Chloride (96-108) mmol/L Carbon Dioxide (22-29) mmol/L Anion Gap (12-20) BUN (9-16) mg/dL Creatinine (0.5-1.4) mg/dL Estim Creat Clear Calc Estimated GFR Random Glucose (60-115) mg/dL Calcium (8.4-10.2) mg/dL Magnesium (1.6-2.6) mg/dL Total Bilirubin (0.0-1.0) mg/dL AST (5-37) U/L ALT (0-40) U/L Alkaline Phosphatase (39-117) U/L Troponin I High Sens 4.0 (<3.5-35.0) ng/L Total Protein (6.5-8.0) g/dL Albumin (3.5-5.0) g/dL Urine Color Yellow Urine Appearance Clear Urine pH 6.5 (5.0-9.0) Ur Specific [facility] >= 1.030 H (1.005-1.025) Urine Protein Negative (Neg-Trace) mg/dL Urine Glucose (UA) Negative (Negative) mg/dL Urine Ketones Negative (Negative) mg/dL Urine Blood Negative (Negative) Urine Nitrite Negative (Negative) Ur Leukocyte Esterase Negative (Negative) Influenza Type A (PCR) (Negative) Influenza Type B (PCR) (Negative) RSV RNA Qual (PCR) (Negative) SARS-CoV-2 RNA (RT-PCR) (Negative) <TINY Hilton - Last Filed: 07/13/22 01:45> Lab Results 07/12/22 07/12/22 07/12/22 Range/Units 17:07 17:07 17:07 WBC 8.7 (4.8-10.8) X10*3/uL RBC 4.55 L (4.60-5.80) X10*6/uL Hgb 13.8 L (14.0-18.0) g/dl Hct 39.8 L (42.0-52.0) % MCV 87.5 (80.0-98.0) fL MCH 30.3 (27.0-33.0) pg MCHC 34.7 (31.0-36.0) g/dl RDW 13.2 (11.0-16.0) % Plt Count 198 (160-400) X10*3/uL MPV 10.3 (9.4-12.4) fL Immature Gran % (Auto) 1.5 H (0.0-0.4) % Neut % (Auto) 69.9 (45-73) % Lymph % (Auto) 17.6 L (20-40) % Maverick % (Auto) 8.4 (2-11) % Eos % (Auto) 2.5 (0-4) % Baso % (Auto) 0.1 (0-2) % Lymph # (Auto) 1.5 (1.2-4.9) X10*3/uL Maverick # (Auto) 0.7 (0.1-1.2) X10*3/uL Eos # (Auto) 0.2 (0.0-0.4) X10*3/uL Baso # (Auto) 0.0 (0.0-0.2) X10*3/uL Abs Immat Gran (auto) 0.13 H (0.00-0.03) X10*3/uL Absolute Neuts (auto) 6.0 (2.0-8.3) x10*3/uL Absolute Nucleated RBC 0.000 (0.0-0.012) X10*3/uL Nucleated RBC % (auto) 0.0 (0.0-0.2) /100WBC Sodium 138 (135-145) mmol/L Potassium 4.1 (3.3-5.1) mmol/L Chloride 105 (96-108) mmol/L Carbon Dioxide 27 (22-29) mmol/L Anion Gap 10 L (12-20) BUN 23 H (9-16) mg/dL Creatinine 0.94 (0.5-1.4) mg/dL Estim Creat Clear Calc 78.1 Estimated GFR > 60 Random Glucose 104 (60-115) mg/dL Calcium 9.4 (8.4-10.2) mg/dL Magnesium 2.1 (1.6-2.6) mg/dL Total Bilirubin 0.4 (0.0-1.0) mg/dL AST 14 (5-37) U/L ALT 16 (0-40) U/L Alkaline Phosphatase 65 (39-117) U/L Troponin I High Sens (<3.5-35.0) ng/L Total Protein 6.9 (6.5-8.0) g/dL Albumin 4.3 (3.5-5.0) g/dL Urine Color Urine Appearance Urine pH (5.0-9.0) Ur Specific [facility] (1.005-1.025) Urine Protein (Neg-Trace) mg/dL Urine Glucose (UA) (Negative) mg/dL Urine Ketones (Negative) mg/dL Urine Blood (Negative) Urine Nitrite (Negative) Ur Leukocyte Esterase (Negative) Influenza Type A (PCR) NEGATIVE (Negative) Influenza Type B (PCR) NEGATIVE (Negative) RSV RNA Qual (PCR) NEGATIVE (Negative) SARS-CoV-2 RNA (RT-PCR) NEGATIVE (Negative) 07/12/22 07/13/22 Range/Units 17:07 01:19 WBC (4.8-10.8) X10*3/uL RBC (4.60-5.80) X10*6/uL Hgb (14.0-18.0) g/dl Hct (42.0-52.0) % MCV (80.0-98.0) fL MCH (27.0-33.0) pg MCHC (31.0-36.0) g/dl RDW (11.0-16.0) % Plt Count (160-400) X10*3/uL MPV (9.4-12.4) fL Immature Gran % (Auto) (0.0-0.4) % Neut % (Auto) (45-73) % Lymph % (Auto) (20-40) % Maverick % (Auto) (2-11) % Eos % (Auto) (0-4) % Baso % (Auto) (0-2) % Lymph # (Auto) (1.2-4.9) X10*3/uL Ma[place]ick # (Auto) (0.1-1.2) X10*3/uL Eos # (Auto) (0.0-0.4) X10*3/uL Baso # (Auto) (0.0-0.2) X10*3/uL Abs Immat Gran (auto) (0.00-0.03) X10*3/uL Absolute Neuts (auto) (2.0-8.3) x10*3/uL Absolute Nucleated RBC (0.0-0.012) X10*3/uL Nucleated RBC % (auto) (0.0-0.2) /100WBC Sodium (135-145) mmol/L Potassium (3.3-5.1) mmol/L Chloride (96-108) mmol/L Carbon Dioxide (22-29) mmol/L Anion Gap (12-20) BUN (9-16) mg/dL Creatinine (0.5-1.4) mg/dL Estim Creat Clear Calc Estimated GFR Random Glucose (60-115) mg/dL Calcium (8.4-10.2) mg/dL Magnesium (1.6-2.6) mg/dL Total Bilirubin (0.0-1.0) mg/dL AST (5-37) U/L ALT (0-40) U/L Alkaline Phosphatase (39-117) U/L Troponin I High Sens 4.0 (<3.5-35.0) ng/L Total Protein (6.5-8.0) g/dL Albumin (3.5-5.0) g/dL Urine Color Yellow Urine Appearance Clear Urine pH 6.5 (5.0-9.0) Ur [facility] >= 1.030 H (1.005-1.025) Urine Protein Negative (Neg-Trace) mg/dL Urine Glucose (UA) Negative (Negative) mg/dL Urine Ketones Negative (Negative) mg/dL Urine Blood Negative (Negative) Urine Nitrite Negative (Negative) Ur Leukocyte Esterase Negative (Negative) Influenza Type A (PCR) (Negative) Influenza Type B (PCR) (Negative) RSV RNA Qual (PCR) (Negative) SARS-CoV-2 RNA (RT-PCR) (Negative) <Dima Isidro MD - Last Filed: 07/13/22 08:00> Lab Results 07/12/22 07/12/22 07/12/22 Range/Units 17:07 17:07 17:07 WBC 8.7 (4.8-10.8) X10*3/uL RBC 4.55 L (4.60-5.80) X10*6/uL Hgb 13.8 L (14.0-18.0) g/dl Hct 39.8 L (42.0-52.0) % MCV 87.5 (80.0-98.0) fL MCH 30.3 (27.0-33.0) pg MCHC 34.7 (31.0-36.0) g/dl RDW 13.2 (11.0-16.0) % Plt Count 198 (160-400) X10*3/uL MPV 10.3 (9.4-12.4) fL Immature Gran % (Auto) 1.5 H (0.0-0.4) % Neut % (Auto) 69.9 (45-73) % Lymph % (Auto) 17.6 L (20-40) % Maverick % (Auto) 8.4 (2-11) % Eos % (Auto) 2.5 (0-4) % Baso % (Auto) 0.1 (0-2) % Lymph # (Auto) 1.5 (1.2-4.9) X10*3/uL [place] # (Auto) 0.7 (0.1-1.2) X10*3/uL Eos # (Auto) 0.2 (0.0-0.4) X10*3/uL Baso # (Auto) 0.0 (0.0-0.2) X10*3/uL Abs Immat Gran (auto) 0.13 H (0.00-0.03) X10*3/uL Absolute Neuts (auto) 6.0 (2.0-8.3) x10*3/uL Absolute Nucleated RBC 0.000 (0.0-0.012) X10*3/uL Nucleated RBC % (auto) 0.0 (0.0-0.2) /100WBC Sodium 138 (135-145) mmol/L Potassium 4.1 (3.3-5.1) mmol/L Chloride 105 (96-108) mmol/L Carbon Dioxide 27 (22-29) mmol/L Anion Gap 10 L (12-20) BUN 23 H (9-16) mg/dL Creatinine 0.94 (0.5-1.4) mg/dL Estim Creat Clear Calc 78.1 Estimated GFR > 60 Random Glucose 104 (60-115) mg/dL Calcium 9.4 (8.4-10.2) mg/dL Magnesium 2.1 (1.6-2.6) mg/dL Total Bilirubin 0.4 (0.0-1.0) mg/dL AST 14 (5-37) U/L ALT 16 (0-40) U/L Alkaline Phosphatase 65 (39-117) U/L Troponin I High Sens (<3.5-35.0) ng/L Total Protein 6.9 (6.5-8.0) g/dL Albumin 4.3 (3.5-5.0) g/dL Urine Color Urine Appearance Urine pH (5.0-9.0) Ur Specific [facility] (1.005-1.025) Urine Protein (Neg-Trace) mg/dL Urine Glucose (UA) (Negative) mg/dL Urine Ketones (Negative) mg/dL Urine Blood (Negative) Urine Nitrite (Negative) Ur Leukocyte Esterase (Negative) Influenza Type A (PCR) NEGATIVE (Negative) Influenza Type B (PCR) NEGATIVE (Negative) RSV RNA Qual (PCR) NEGATIVE (Negative) SARS-CoV-2 RNA (RT-PCR) NEGATIVE (Negative) 07/12/22 07/13/22 Range/Units 17:07 01:19 WBC (4.8-10.8) X10*3/uL RBC (4.60-5.80) X10*6/uL Hgb (14.0-18.0) g/dl Hct (42.0-52.0) % MCV (80.0-98.0) fL MCH (27.0-33.0) pg MCHC (31.0-36.0) g/dl RDW (11.0-16.0) % Plt Count (160-400) X10*3/uL MPV (9.4-12.4) fL Immature Gran % (Auto) (0.0-0.4) % Neut % (Auto) (45-73) % Lymph % (Auto) (20-40) % Maverick % (Auto) (2-11) % Eos % (Auto) (0-4) % Baso % (Auto) (0-2) % Lymph # (Auto) (1.2-4.9) X10*3/uL [place] # (Auto) (0.1-1.2) X10*3/uL Eos # (Auto) (0.0-0.4) X10*3/uL Baso # (Auto) (0.0-0.2) X10*3/uL Abs Immat Gran (auto) (0.00-0.03) X10*3/uL Absolute Neuts (auto) (2.0-8.3) x10*3/uL Absolute Nucleated RBC (0.0-0.012) X10*3/uL Nucleated RBC % (auto) (0.0-0.2) /100WBC Sodium (135-145) mmol/L Potassium (3.3-5.1) mmol/L Chloride (96-108) mmol/L Carbon Dioxide (22-29) mmol/L Anion Gap (12-20) BUN (9-16) mg/dL Creatinine (0.5-1.4) mg/dL Estim Creat Clear Calc Estimated GFR Random Glucose (60-115) mg/dL Calcium (8.4-10.2) mg/dL Magnesium (1.6-2.6) mg/dL Total Bilirubin (0.0-1.0) mg/dL AST (5-37) U/L ALT (0-40) U/L Alkaline Phosphatase (39-117) U/L Troponin I High Sens 4.0 (<3.5-35.0) ng/L Total Protein (6.5-8.0) g/dL Albumin (3.5-5.0) g/dL Urine Color Yellow Urine Appearance Clear Urine pH 6.5 (5.0-9.0) Ur [facility] >= 1.030 H (1.005-1.025) Urine Protein Negative (Neg-Trace) mg/dL Urine Glucose (UA) Negative (Negative) mg/dL Urine Ketones Negative (Negative) mg/dL Urine Blood Negative (Negative) Urine Nitrite Negative (Negative) Ur Leukocyte Esterase Negative (Negative) Influenza Type A (PCR) (Negative) Influenza Type B (PCR) (Negative) RSV RNA Qual (PCR) (Negative) SARS-CoV-2 RNA (RT-PCR) (Negative) <TINY Hicks - Last Filed: 07/13/22 10:28> Critical Care Time Critical Care Time Critical Care Time: No <TINY Hilton - Last Filed: 07/13/22 01:45> Discharge Plan Discharge Clinical Impression: Orthostatic hypotension, Dizziness, Abdominal pain, Kidney stone, Dehydration <TINY Jean Baptiste - Last Filed: 07/12/22 15:57> Patient Disposition: Still a Patient <TINY Jean Baptiste - Last Filed: 07/12/22 15:57>
--- NOTE | 2022-07-12 15:57 | ECG_ITS ---
Test Reason : DIZZINESS Blood Pressure : / mmHG Vent. Rate : 053 BPM Atrial Rate : 053 BPM P-R Int : 178 ms QRS Dur : 092 ms QT Int : 424 ms P-R-T Axes : 059 052 027 degrees QTc Int : 397 ms Sinus bradycardia Otherwise normal ECG When compared with ECG of 05-DEC-2016 23:11, No significant change was found Referred By: Lorrie Palumbo Electronically Signed By:Bertin Orona
[2022-07-12 17:15] LABS: MANUAL DIFF FLAG NO
[2022-07-12 17:23] LABS: Basophils Percent Auto 0.1 % (0-2); Eosinophils Absolute Auto 0.2 X10*3/uL (0.0-0.4); Eosinophils Percent Auto 2.5 % (0-4); Hematocrit 39.8 % (42.0-52.0); Hemoglobin 13.8 g/dl (14.0-18.0); Imm Gran Abs Auto 0.13 X10*3/uL (0.00-0.03); Imm Gran Pct Auto 1.5 % (0.0-0.4); Lymphocytes Absolute Auto 1.5 X10*3/uL (1.2-4.9); Lymphocytes Percent Auto 17.6 % (20-40); Mean Corpuscular HGB Conc 34.7 g/dl (31.0-36.0); Mean Corpuscular Hemoglobin 30.3 pg (27.0-33.0); Mean Corpuscular Volume 87.5 fL (80.0-98.0); Mean Platelet Volume 10.3 fL (9.4-12.4); Monocytes Absolute Auto 0.7 X10*3/uL (0.1-1.2); Monocytes Percent Auto 8.4 % (2-11); Neutrophils Percent Auto 69.9 % (45-73); Platelet Count 198 X10*3/uL (160-400); Red Blood Count 4.55 X10*6/uL (4.60-5.80); Red Cell Distribution Width 13.2 % (11.0-16.0); White Blood Count 8.7 X10*3/uL (4.8-10.8)
[2022-07-12 17:33] LABS: Alanine Aminotransferase 16 U/L (0-40); Albumin Level 4.3 g/dL (3.5-5.0); Alkaline Phosphatase 65 U/L (39-117); Anion Gap 10 (12-20); Aspartate Amino Transferase 14 U/L (5-37); Bilirubin Total 0.4 mg/dL (0.0-1.0); Blood Urea Nitrogen 23 mg/dL (9-16); Calcium 9.4 mg/dL (8.4-10.2); Carbon Dioxide 27 mmol/L (22-29); Chloride 105 mmol/L (96-108); Creatinine Clr Calc Pharmacy 78.1; Estimated Glomerular Filt Rate > 60; Glucose Random 104 mg/dL (60-115); Magnesium 2.1 mg/dL (1.6-2.6); Potassium 4.1 mmol/L (3.3-5.1); Sodium 138 mmol/L (135-145); Total Protein 6.9 g/dL (6.5-8.0)
[2022-07-12 17:52] LABS: Influenza A PCR NEGATIVE (Negative); Influenza B PCR NEGATIVE (Negative); Resp Syncy Virus RNA Qual PCR NEGATIVE (Negative); SARS COV2 PCR INHOUSE NEGATIVE (Negative)
--- NOTE | 2022-07-12 18:44 | PC.NURSE ---
Patient deaf and uses sign language required use of wood tile installation helper pad for assessment . patient a/ox4 . pearrla . heart rate regular at 70 beats per minute . lungs clear throughout . breathing even and unlabored . skin warm and dry . abdomen soft . positive bowel sounds in all four quadrants , patient reports aching stomach all the time . patient also reports family stresses of recently dying and needing to move . IV placed in right A. C . patient transported to C.T. for images . patient aware of plan of care .
[2022-07-12] MEDS: iohexoL 350 MG/ML 100 ML INFUS..BTL IV (19:08)
--- NOTE | 2022-07-12 21:43 | MHC.CARE ---
Care Team received a consult for depression due to recent loss of . Pt was seen in ED 21 by this sports writer. Pt reported arriving to [facility] ED due to feeling dizzy and stomach pain. Pt stated feeling depressed, lack of energy, and tired. Pt reports he want to move to another apartment as pt feels overwhelmed. Pt later reported pt was getting evicted due to non payment and currently going to court. Pt reports his contracts intern manages his finances. Pt denied SI AND HI. Pt reports hearing voices that tell him to relax and not to worry too much. Disposition discussed with Faraz FRANKS and Macey ABDI. There were interruptions during the interview for deaf interpreter with pt, care team will await for in person deaf interpreter.
[2022-07-12 22:17] VITALS: BP 114/64; BP 153/69
[2022-07-12 22:19] VITALS: BP 111/71
[2022-07-12 22:21] VITALS: BP 111/71; PULSE 51; TEMP 36.6; O2SAT 97
[2022-07-12] MEDS: Ketorolac Tromethamine 15 MG/ML VIAL 30 MG IVPUSH (23:45)
[2022-07-12] MEDS: Meclizine HCl 25 MG TABLET PO (23:46)
[2022-07-12] MEDS: 0.9 % Sodium Chloride 1,000 ML 999 ML IV (23:46)
--- NOTE | 2022-07-12 23:58 | PC.NURSE ---
this rn medicated pt according to OCT. pt requested lotion for back. this rn applied lotion B upper back
[2022-07-13] VITALS (10 sets, daily range): BP systolic 122–172; BP diastolic 42–106; PULSE 55–103; RESP 15–16; TEMP 36.5–36.8; O2SAT 93–98
[2022-07-13] MEDS: 0.9 % Sodium Chloride 1,000 ML 999 ML IV ×2 (00:56→01:44)
[2022-07-13 01:25] LABS: Appearance Urine Clear; Color Urine Yellow; Glucose Urine UA Negative (Negative); Leukocyte Esterase Urine Negative (Negative); Nitrite Urine Negative (Negative); PH 6.5 (5.0-9.0); Specific Gravity - Urine >= 1.030 (1.005-1.025); Urine Blood Negative (Negative); Urine Ketones Negative (Negative); Urine Protein Negative (Neg-Trace)
[2022-07-13] MEDS: Morphine Sulfate Immed Release 15 MG TABLET PO ×2 (01:43→03:33)
--- NOTE | 2022-07-13 03:24 | PC.NURSE ---
This signal maintenance technician assist patient with urinal. Patient continues to have abdominal pain. Nurse aware.
--- NOTE | 2022-07-13 04:17 | PC.NURSE ---
This upstream biomanufacturing technician assist patient to the commode. Patient had a large b/m and voided. 1:1 assist back to bed.
[2022-07-13] MEDS: Acetaminophen 325 MG TABLET 975 MG PO (09:41)
[2022-07-13] MEDS: Ibuprofen 600 MG TABLET PO (09:41)
--- NOTE | 2022-07-13 09:53 | PC.NURSE ---
pt was sleeping and easily woken, c/o abd pain, pa aware and medicated as ordered, communicated vioa pt family , awaiting foreign language interpreter, I called the foreign language interpreter line and they will call back w eta
--- NOTE | 2022-07-13 11:58 | PC.NURSE ---
Stacia web project manager used by CARE team and by this rn, pt alert, c/o l abd discomfort that is improved but still present, states it radiates down his leg, c/o being very tired and doesn't have a ride till a little after 1500 when family can pick him up, I informed him that he may need to wait in the waiting room
--- NOTE | 2022-07-13 11:59 | MHC.CARE ---
Care Team met with pt for a follow up consult. Pt was laying in bed wearing hospital attire in ED 21. Pt was alert and oriented x3. Pt denied SI/HI/AVH and requested a mental health referral. Care team recommendation discussed with Lou FRANKS. Care Team to complete online [facility] referral.
== END 2022-07-13 16:31 | disposition home or self-care (01) ==
PROVIDERS: Physician Assistant; Physician Assistant Medical; Emergency Provider Emergency Medicine; PCP Family Medicine
DX: I95.1 Orthostatic hypotension (principal); E86.0 Dehydration; N20.0 Calculus of kidney; R45.851 Suicidal ideations; F33.1 Major depressive disorder, recurrent, moderate; R42 Dizziness and giddiness; R51.9 Headache, unspecified; M54.2 Cervicalgia; R10.13 Epigastric pain; F41.1 Generalized anxiety disorder; F43.0 Acute stress reaction; Z20.822 Contact with and (suspected) exposure to COVID-19; Z79.899 Other long term (current) drug therapy
CPT/HCPCS: 0241U; 70450; 74177; 80053; 81003; 83735; 84484; 85025; 93005; 96361; 96374; 99285; J1885; Q9967

== ENCOUNTER 2022-08-15 15:23 | Emergency (ER) | payer OTHER, MEDICAID, SELFPAY ==
--- NOTE | ~2022-08-15 | US_ITS ---
EXAMINATION: US VENOUS WITH DOPPLER UPPER EXTREMITY, RIGHT CLINICAL INFORMATION: Needle and arm, foreign body COMPARISON: None TECHNIQUE: Ultrasound of the upper extremity is performed using compression sonography and color and pulse Doppler flow with assessment of augmentation of flow. There is also imaging and Doppler assessment of the jugular and subclavian veins. Spectral analysis with color-flow imaging is performed. FINDINGS: Respiratory variation, normal compression, and augmented flow are noted throughout the upper extremity including the brachial, cubital, and radial and ulnar veins. Right axillary vein is not visualized secondary to patient positioning. There is normal flow in the internal jugular and subclavian veins. There is no visible deep or superficial thrombophlebitis. Known soft tissue foreign body is not clearly visualized, a linear echogenic focus in the right anterior cubital fossa may correspond to foreign body. If the patient's symptoms progress, a followup ultrasound in 5 -7 days might be of value to exclude proximal propagation from a nonvisualized distal arm vein. US/US venous duplex UE RT IMPRESSION: 1. No DVT demonstrated in the right upper extremity. Known soft tissue foreign body is not clearly visualized, a linear echogenic focus in the right anterior cubital fossa may correspond to foreign body.
--- NOTE | ~2022-08-15 | XR_ITS ---
EXAMINATION: X-RAY RIGHT SHOULDER X-RAY RIGHT ELBOW X-RAY RIGHT WRIST CLINICAL INFORMATION: Pain. COMPARISON: No similar priors. TECHNIQUE: 3 views of the right shoulder. 3 views of the right elbow. 3 views of the right wrist. FINDINGS: Right shoulder: No acute fracture or malalignment. Well-corticated 5 mm ossific body adjacent to the greater trochanter of the humerus and additional 6 mm well-corticated ossific body adjacent to the medial surface of the proximal humeral shaft. Mild degenerative changes of the acromioclavicular joint and glenohumeral joint. Normal appearance of the right clavicle and visualized right-sided ribs. Included portions of the right lung are clear. Right elbow: No acute fracture or malalignment. There is a 1.2 cm needle shaped foreign body projecting over the medial soft tissues of the distal forearm. No joint effusion. 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 Right wrist: No acute fracture or malalignment. Mild degenerative posterior arthritis of the first carpometacarpal joint. XR/XR wrist RT 2V IMPRESSION: 1. No acute fractures or malalignment. 2. 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 3. Well-corticated ossific bodies adjacent to the greater trochanter of the humerus and medial surface of the proximal humeral shaft are nonspecific and could be sequela of prior trauma, calcific tendinosis or degenerative loose bodies. 4. Nonspecific needle shape body in the soft tissues of the distal medial forearm, possibly foreign body. Recommend correlation with physical examination.
--- NOTE | ~2022-08-15 | XR_ITS ---
EXAMINATION: X-RAY RIGHT SHOULDER X-RAY RIGHT ELBOW X-RAY RIGHT WRIST CLINICAL INFORMATION: Pain. COMPARISON: No similar priors. TECHNIQUE: 3 views of the right shoulder. 3 views of the right elbow. 3 views of the right wrist. FINDINGS: Right shoulder: No acute fracture or malalignment. Well-corticated 5 mm ossific body adjacent to the greater trochanter of the humerus and additional 6 mm well-corticated ossific body adjacent to the medial surface of the proximal humeral shaft. Mild degenerative changes of the acromioclavicular joint and glenohumeral joint. Normal appearance of the right clavicle and visualized right-sided ribs. Included portions of the right lung are clear. Right elbow: No acute fracture or malalignment. There is a 1.2 cm needle shaped foreign body projecting over the medial soft tissues of the distal forearm. No joint effusion. 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 Right wrist: No acute fracture or malalignment. Mild degenerative posterior arthritis of the first carpometacarpal joint. XR/XR shoulder RT min 2V IMPRESSION: 1. No acute fractures or malalignment. 2. 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 3. Well-corticated ossific bodies adjacent to the greater trochanter of the humerus and medial surface of the proximal humeral shaft are nonspecific and could be sequela of prior trauma, calcific tendinosis or degenerative loose bodies. 4. Nonspecific needle shape body in the soft tissues of the distal medial forearm, possibly foreign body. Recommend correlation with physical examination.
--- NOTE | ~2022-08-15 | XR_ITS ---
EXAMINATION: X-RAY RIGHT SHOULDER X-RAY RIGHT ELBOW X-RAY RIGHT WRIST CLINICAL INFORMATION: Pain. COMPARISON: No similar priors. TECHNIQUE: 3 views of the right shoulder. 3 views of the right elbow. 3 views of the right wrist. FINDINGS: Right shoulder: No acute fracture or malalignment. Well-corticated 5 mm ossific body adjacent to the greater trochanter of the humerus and additional 6 mm well-corticated ossific body adjacent to the medial surface of the proximal humeral shaft. Mild degenerative changes of the acromioclavicular joint and glenohumeral joint. Normal appearance of the right clavicle and visualized right-sided ribs. Included portions of the right lung are clear. Right elbow: No acute fracture or malalignment. There is a 1.2 cm needle shaped foreign body projecting over the medial soft tissues of the distal forearm. No joint effusion. 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 Right wrist: No acute fracture or malalignment. Mild degenerative posterior arthritis of the first carpometacarpal joint. XR/XR elbow RT 2V IMPRESSION: 1. No acute fractures or malalignment. 2. 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 3. Well-corticated ossific bodies adjacent to the greater trochanter of the humerus and medial surface of the proximal humeral shaft are nonspecific and could be sequela of prior trauma, calcific tendinosis or degenerative loose bodies. 4. Nonspecific needle shape body in the soft tissues of the distal medial forearm, possibly foreign body. Recommend correlation with physical examination.
[2022-08-15 16:35] VITALS: BP 119/59; PULSE 63; RESP 18; TEMP 36.1; O2SAT 92; BMI 30.7
--- NOTE | 2022-08-15 16:45 | ED_ITS ---
HPI - General Adult General Source: patient <Carolina Clarke NP - Last Filed: 08/16/22 03:11> Mode of arrival: ambulatory <Carolina Clarke NP - Last Filed: 08/16/22 03:11> Limitations: language barrier (ASL) <Carolina Clarke NP - Last Filed: 08/16/22 03:11> History of Present Illness HPI narrative: 62-year-old male presents with right shoulder and arm pain that started when he woke up this morning. Does not report any injury or trauma. Denies fevers, chills, loss of sensation or decreased strength. <Carolina Clarke NP - Last Filed: 08/16/22 03:11> Onset (ago): day(s) (1) <Carolina Clarke NP - Last Filed: 08/16/22 03:11> Location: right and upper extremity <Carolina Clarke NP - Last Filed: 08/16/22 03:11> Radiation: non-radiation <Carolina Clarke NP - Last Filed: 08/16/22 03:11> Severity: severe <Carolina Clarke NP - Last Filed: 08/16/22 03:11> Severity scale (1-10): 10 <Carolina Clarke NP - Last Filed: 08/16/22 03:11> Quality: aching <Carolina Clarke NP - Last Filed: 08/16/22 03:11> Pain Consistency: constant <Carolina Clarke NP - Last Filed: 08/16/22 03:11> Relieving factors: none <Carolina Clarke NP - Last Filed: 08/16/22 03:11> Exacerbating factors: movement <Carolina Clarke NP - Last Filed: 08/16/22 03:11> Associated symptoms: denies other symptoms <Carolina Clarke NP - Last Filed: 08/16/22 03:11> Treatments prior to arrival: none <Carolina Clarke NP - Last Filed: 08/16/22 03:11> Related Data Home medications: Previous Rx's Medication Instructions Recorded amoxicillin 875 mg-potassium 1 tab PO Q12H 10 days #20 tabs 08/16/22 clavulanate 125 mg tablet oxycodone 5 mg tablet 5 mg PO Q6H PRN pain #10 tabs 08/16/22 <DOUG Mann - Last Filed: 08/19/22 20:42> Allergies/adverse reactions: Allergies Allergy/AdvReac Type Severity Reaction Status Date / Time No Known Allergies Allergy Unverified 04/27/20 15:29 [No Known Allergies*] <DOUG Mann - Last Filed: 08/19/22 20:42> Review of Systems Review of Systems: Constitutional: No Fever, No Chills Cardiovascular: No Chest Pain, No SOB Respiratory: No Cough, No Dyspnea Gastrointestinal: No Nausea, No Vomiting, No Diarrhea, No abdominal Pain Genitourinary: No Dysuria, No Hematuria Musculoskeletal: positive right arm pain, No Myalgias, No Joint Swelling Skin: No Skin lacerations, No rash Neuro: No Weakness, No Numbness, No Paresthesias, No Dizziness, No Headache <Carolina Clarke NP - Last Filed: 08/16/22 03:11> Yes all other systems are reviewed and are negative <JASON Cross ast Filed: 08/16/22 03:11> [facility] Past Medical History Attestation statement: The following information was validated with the patient. <Carolina Clarke NP - Last Filed: 08/16/22 03:11> Source: old records reviewed <Carolina Clarke NP - Last Filed: 08/16/22 03:11> Physical Exam ED Vital Signs: Vital Signs - 24 hr 08/15/22 16:35 08/16/22 00:06 Temperature 97.0 F Pulse Rate 63 57 Respiratory Rate 18 17 Blood Pressure 119/59 L 132/69 Pulse Oximetry 92 93 Oxygen Delivery Method Room Air Room Air BMI result Body Mass Index 30.7 <DOUG Mann - Last Filed: 08/19/22 20:42> Vital Signs - 24 hr 08/15/22 16:35 08/16/22 00:06 Temperature 97.0 F Pulse Rate 63 57 Respiratory Rate 18 17 Blood Pressure 119/59 L 132/69 Pulse Oximetry 92 93 Oxygen Delivery Method Room Air Room Air BMI result Body Mass Index 30.7 <Carolina Clarke NP - Last Filed: 08/16/22 03:11> Appearance: Alert. Oriented X3. Moderate distress. Eyes: Pupils equal, round and reactive to light. ENT: Pharynx normal. Neck: Normal inspection. Neck supple. CVS: Normal heart rate and rhythm. Pulses normal. Respiratory: No respiratory distress. Abdomen: Soft and nontender. Skin: Skin warm and dry. Normal skin color. Normal skin turgor. Extremities: No lower extremity edema. Moves all extremities spontaneously. Gait not assessed for safety. Group Therapist strength bilaterally equal. Neuro: No motor deficit. No sensory deficit. Cranial nerves 2-12 intact. <Carolina Clarke NP - Last Filed: 08/16/22 03:11> Course Course Course Narrative: 62-year-old male is here today for complaining of right arm and elbow pain. Patient reports that he woke up this morning at 09:00 o'clock with pain in his whole right arm sore. Patient denies any numbness. Patient reports ac tual pain. Denies any injury to his arm. Patient states that he never had this kind the pain in the past. Patient denies any numbness and tingling. During exam patient has his arm band at elbow however after straining his arm out he is unable to position his arm back again. Exam is negative for any acute processes. Patient has tightness to his muscles no spinal tenderness patient will get x-rays of his shoulder and his elbow. Will medicate patient with ibuprofen patient is hemodynamically stable to go to waiting room. Patient was triaged and evaluated using [place] certified court/medical interpreter <DARA Mann-PASCALE - Last Filed: 08/19/22 20:42> 62-year-old male is here today for complaining of right arm and elbow pain. Patient reports that he woke up this morning at 09:00 o'clock with pain in his whole right arm sore. Patient denies any numbness. Patient reports actual pain. Denies any injury to his arm. Patient states that he never had this kind the pain in the past. Patient denies any numbness and tingling. During exam patient has his arm band at elbow however after straining his arm out he is unable to position his arm back again. Exam is negative for any acute processes. Patient has tightness to his muscles no spinal tenderness patient will get x-rays of his shoulder and his elbow. Will medicate patient with ibuprofen patient is hemodynamically stable to go to waiting room. Patient was triaged and evaluated using [place] certified court/medical interpreter 62-year-old male presents for evaluation of sudden onset of right upper e xtremity pain. X-rays completed while he was in the emergency department waiting room which indicates a foreign body, suspected needle to the distal medial forearm. I did inform the patient of the findings, he denies IV drug use or ever using a needle in the past. It is interesting to note that when I enter the room patient starts to moan and groan, and reports 10/10 arm pain. When no one is present, patient is resting comfortably, and moving his arm without difficulty. 19:[address] Hannon via tiger text, this patient can be followed up as an outpatient to have foreign body removed under fluoroscopy. Will give Augmentin twice a day and order duplex to rule out DVT. 22:09 duplex is negative. Lab values are unremarkable. Will have patient follow-up with Dr. Hannon as an outpatient for foreign body retrieval. Plan of care is to discharge home as patient has negative workup. It is noted that patient does not have a ride home, does not have his keys to get inside of his house, and will be boarding till the morning when his sister returns home. <Carolina Clarke NP - Last Filed: 08/16/22 03:11> Consultations Consultation #1: Riddhi <Carolina Clarke NP - Last Filed: 08/16/22 03:11> Time: 19:30 <Carolina Clarke NP - Last Filed: 08/16/22 03:11> Medications Administered Discontinued Medications Generic Name Dose Route Start Last Admin Trade Name Freq PRN Reason Stop Dose Admin Acetaminophen 650 mg 08/15/22 16:50 08/15/22 19:34 Acetaminophen 325 Mg Tablet PO 08/15/22 16:51 650 mg ONCE STA Administration Diphtheria/Tetanus/Acell Pertussis 0.5 ml 08/15/22 19:24 08/15/22 21:50 Diphth,Pertus(Acell),Tet Adult 0.5 Ml Syringe IM 08/15/22 19:25 0.5 ml .ONCE ONE Administration Ibuprofen 600 mg 08/16/22 00:56 08/16/22 01:43 Ibuprofen 600 Mg Tablet PO 08/16/22 00:57 600 mg ONCE ONE Administration <DOUG Mann - Last Filed: 08/19/22 20:42> Medications Administered Discontinued Medications Generic Name Dose Route Start Last Admin Trade Name Natalia PRN Reason Stop Dose Admin Acetaminophen 650 mg 08/15/22 16:50 08/15/22 19:34 Acetaminophen 325 Mg Tablet PO 08/15/22 16:51 650 mg ONCE STA Administration Diphtheria/Tetanus/Acell Pertussis 0.5 ml 08/15/22 19:24 08/15/22 21:50 Diphth,Pertus(Acell),Tet Adult 0.5 Ml Syringe IM 08/15/22 19:25 0.5 ml .ONCE ONE Administration Ibuprofen 600 mg 08/16/22 00:56 08/16/22 01:43 Ibuprofen 600 Mg Tablet PO 08/16/22 00:57 600 mg ONCE ONE Administration <Carolina Clarke NP - Last Filed: 08/16/22 03:11> Medical Decision Making Differential Diagnosis Differential Diagnoses: The differential diagnosis associated with the presentation includes <Carolina Clarke NP - Last Filed: 08/16/22 03:11> Rotator cuff injury, DVT, foreign body, cellulitis <Carolina Clarke NP - Last Filed: 08/16/22 03:11> Admission/Observation Consideration of admission/observation: Escalation of care including admission/observation considered <Carolina Clarke NP - Last Filed: 08/16/22 03:11> Consult Healthcare Provider Management of the patient was discussed with: Heart Coordinator <Carolina Clarke NP - Last Filed: 08/16/22 03:11> Dr. Hannon <Carolina Clarke NP - Last Filed: 08/16/22 03:11> Lab Data MDM Lab Attestation statement: I reviewed the patient's lab results. <Carolina Clarke NP - Last Filed: 08/16/22 03:11> Result Diagrams: 08/15/22 19:41 08/15/22 19:41 <DOUG Mann - Last Filed: 08/19/22 20:42> Labs: Lab Results 0108/15/22 08/15/22 Range/Units 19:41 19:41 19:41 WBC 9.3 (4.8-10.8) X10*3/uL RBC 4.48 L (4.60-5.80) X10*6/uL Hgb 13.5 L (14.0-18.0) g/dl Hct 38.9 L (42.0-52.0) % MCV 86.8 (80.0-98.0) fL MCH 30.1 (27.0-33.0) pg MCHC 34.7 (31.0-36.0) g/dl RDW 12.6 (11.0-16.0) % Plt Count 179 (160-400) X10*3/uL MPV 10.5 (9.4-12.4) fL Immature Gran % (Auto) 0.4 (0.0-0.4) % Neut % (Auto) 67.3 (45-73) % Lymph % (Auto) 20.8 (20-40) % [place] % (Auto) 8.2 (2-11) % Eos % (Auto) 3.3 (0-4) % Baso % (Auto) 0.0 (0-2) % Lymph # (Auto) 1.9 (1.2-4.9) X10*3/uL [place] # (Auto) 0.8 (0.1-1.2) X10*3/uL Eos # (Auto) 0.3 (0.0-0.4) X10*3/uL Baso # (Auto) 0.0 (0.0-0.2) X10*3/uL Abs Immat Gran (auto) 0.04 H (0.00-0.03) X10*3/uL Absolute Neuts (auto) 6.3 (2.0-8.3) x10*3/uL Absolute Nucleated RBC 0.000 (0.0-0.012) X10*3/uL Nucleated RBC % (auto) 0.0 (0.0-0.2) /100WBC PT 11.8 (10.0-13.1) SEC INR 1.0 (0.9-1.1) APTT 32.5 (26.0-36.4) SEC Sodium 140 (135-145) mmol/L Potassium 4.1 (3.3-5.1) mmol/L Chloride 108 (96-108) mmol/L Carbon Dioxide 23 (22-29) mmol/L Anion Gap 13 (12-20) BUN 17 H (9-16) mg/dL Creatinine 0.85 (0.5-1.4) mg/dL Estim Creat Clear Calc 90.4 Estimated GFR > 60 Random Glucose 125 H (60-115) mg/dL Calcium 9.5 (8.4-10.2) mg/dL Total Bilirubin 0.4 (0.0-1.0) mg/dL Direct Bilirubin 0.2 (0.0-0.5) mg/dL AST 16 (5-37) U/L ALT 19 (0-40) U/L Alkaline Phosphatase 71 (39-117) U/L Total Protein 6.9 (6.5-8.0) g/dL Albumin 4.3 (3.5-5.0) g/dL Lipase 31 (8-78) U/L Urine Color Urine Appearance Urine pH (5.0-9.0) Ur Specific [place] (1.005-1.025) Urine Protein (Neg-Trace) mg/dL Urine Glucose (UA) (Negative) mg/dL Urine Ketones (Negative) mg/dL Urine Blood (Negative) Urine Nitrite (Negative) Ur Leukocyte Esterase (Negative) Urine RBC (0-2) /HPF Urine WBC (0-5) /HPF Ur Squamous Epith Cells (0-2) /HPF Urine Bacteria (None Seen) Hyaline Casts (0-2) /LPF Urine Opiates Screen (Not Detect) Urine Fentanyl Screen (Not Detect) Ur Barbiturates Screen (Not Detect) Ur Phencyclidine Scrn (Not Detect) Ur Amphetamines Screen (Not Detect) U Benzodiazepines Scrn (Not Detect) Urine Cocaine Screen (Not Detect) U Marijuana (THC) Screen (Not Detect) Influenza Type A (PCR) (Negative) Influenza Type B (PCR) (Negative) RSV RNA Qual (PCR) (Negative) SARS-CoV-2 RNA (RT-PCR) (Negative) 08/15/22 08/16/22 08/16/22 Range/Units 19:41 02:42 02:42 WBC (4.8-10.8) X10*3/uL RBC (4.60-5.80) X10*6/uL Hgb (14.0-18.0) g/dl Hct (42.0-52.0) % MCV (80.0-98.0) fL MCH (27.0-33.0) pg MCHC (31.0-36.0) g/dl RDW (11.0-16.0) % Plt Count (160-400) X10*3/uL MPV (9.4-12.4) fL Immature Gran % (Auto) (0.0-0.4) % Neut % (Auto) (45-73) % Lymph % (Auto) (20-40) % [place] % (Auto) (2-11) % Eos % (Auto) (0-4) % Baso % (Auto) (0-2) % Lymph # (Auto) (1.2-4.9) X10*3/uL [place] # (Auto) (0.1-1.2) X10*3/uL Eos # (Auto) (0.0-0.4) X10*3/uL Baso # (Auto) (0.0-0.2) X10*3/uL Abs Immat Gran (auto) (0.00-0.03) X10*3/uL Absolute Neuts (auto) (2.0-8.3) x10*3/uL Absolute Nucleated RBC (0.0-0.012) X10*3/uL Nucleated RBC % (auto) (0.0-0.2) /100WBC PT (10.0-13.1) SEC INR (0.9-1.1) APTT (26.0-36.4) SEC Sodium (135-145) mmol/L Potassium (3.3-5.1) mmol/L Chloride (96-108) mmol/L Carbon Dioxide (22-29) mmol/L Anion Gap (12-20) BUN (9-16) mg/dL Creatinine (0.5-1.4) mg/dL Estim Creat Clear Calc Estimated GFR Random Glucose (60-115) mg/dL Calcium (8.4-10.2) mg/dL Total Bilirubin (0.0-1.0) mg/dL Direct Bilirubin (0.0-0.5) mg/dL AST (5-37) U/L ALT (0-40) U/L Alkaline Phosphatase (39-117) U/L Total Protein (6.5-8.0) g/dL Albumin (3.5-5.0) g/dL Lipase (8-78) U/L Urine Color Yellow Urine Appearance Clear Urine pH 6.0 (5.0-9.0) Ur Specific [place] 1.015 (1.005-1.025) Urine Protein Negative (Neg-Trace) mg/dL Urine Glucose (UA) Negative (Negative) mg/dL Urine Ketones Negative (Negative) mg/dL Urine Blood Trace H (Negative) Urine Nitrite Negative (Negative) Ur Leukocyte Esterase Negative (Negative) Urine RBC 11-20 H (0-2) /HPF Urine WBC 0-5 (0-5) /HPF Ur Squamous Epith Cells 0-2 (0-2) /HPF Urine Bacteria None Seen (None Seen) Hyaline Casts 0-2 (0-2) /LPF Urine Opiates Screen Not Detected (Not Detect) Urine Fentanyl Screen Not Detected (Not Detect) Ur Barbiturates Screen Not Detected (Not Detect) Ur Phencyclidine Scrn Not Detected (Not Detect) Ur Amphetamines Screen Not Detected (Not Detect) U Benzodiazepines Scrn Not Detected (Not Detect) Urine Cocaine Screen Not Detected (Not Detect) U Marijuana (THC) Screen Not Detected (Not Detect) Influenza Type A (PCR) NEGATIVE (Negative) Influenza Type B (PCR) NEGATIVE (Negative) RSV RNA Qual (PCR) NEGATIVE (Negative) SARS-CoV-2 RNA (RT-PCR) NEGATIVE (Negative) <Pippa Day, [facility]- - Last Filed: 08/19/22 20:42> Lab Results 08/15/22 08/15/22 08/15/22 Range/Units 19:41 19:41 19:41 WBC 9.3 (4.8-10.8) X10*3/uL RBC 4.48 L (4.60-5.80) X10*6/uL Hgb 13.5 L (14.0-18.0) g/dl Hct 38.9 L (42.0-52.0) % MCV 86.8 (80.0-98.0) fL MCH 30.1 (27.0-33.0) pg MCHC 34.7 (31.0-36.0) g/dl RDW 12.6 (11.0-16.0) % Plt Count 179 (160-400) X10*3/uL MPV 10.5 (9.4-12.4) fL Immature Gran % (Auto) 0.4 (0.0-0.4) % Neut % (Auto) 67.3 (45-73) % Lymph % (Auto) 20.8 (20-40) % [place] % (Auto) 8.2 (2-11) % Eos % (Auto) 3.3 (0-4) % Baso % (Auto) 0.0 (0-2) % Lymph # (Auto) 1.9 (1.2-4.9) X10*3/uL [place] # (Auto) 0.8 (0.1-1.2) X10*3/uL Eos # (Auto) 0.3 (0.0-0.4) X10*3/uL Baso # (Auto) 0.0 (0.0-0.2) X10*3/uL Abs Immat Gran (auto) 0.04 H (0.00-0.03) X10*3/uL Absolute Neuts (auto) 6.3 (2.0-8.3) x10*3/uL Absolute Nucleated RBC 0.000 (0.0-0.012) X10*3/uL Nucleated RBC % (auto) 0.0 (0.0-0.2) /100WBC PT 11.8 (10.0-13.1) SEC INR 1.0 (0.9-1.1) APTT 32.5 (26.0-36.4) SEC Sodium 140 (135-145) mmol/L Potassium 4.1 (3.3-5.1) mmol/L Chloride 108 (96-108) mmol/L Carbon Dioxide 23 (22-29) mmol/L Anion Gap 13 (12-20) BUN 17 H (9-16) mg/dL Creatinine 0.85 (0.5-1.4) mg/dL Estim Creat Clear Calc 90.4 Estimated GFR > 60 Random Glucose 125 H (60-115) mg/dL Calcium 9.5 (8.4-10.2) mg/dL Total Bilirubin 0.4 (0.0-1.0) mg/dL Direct Bilirubin 0.2 (0.0-0.5) mg/dL AST 16 (5-37) U/L ALT 19 (0-40) U/L Alkaline Phosphatase 71 (39-117) U/L Total Protein 6.9 (6.5-8.0) g/dL Albumin 4.3 (3.5-5.0) g/dL Lipase 31 (8-78) U/L Urine Color Urine Appearance Urine pH (5.0-9.0) Ur Specific [place] (1.005-1.025) Urine Protein (Neg-Trace) mg/dL Urine Glucose (UA) (Negative) mg/dL Urine Ketones (Negative) mg/dL Urine Blood (Negative) Urine Nitrite (Negative) Ur Leukocyte Esterase (Negative) Urine RBC (0-2) /HPF Urine WBC (0-5) /HPF Ur Squamous Epith Cells (0-2) /HPF Urine Bacteria (None Seen) Hyaline Casts (0-2) /LPF Urine Opiates Screen (Not Detect) Urine Fentanyl Screen (Not Detect) Ur Barbiturates Screen (Not Detect) Ur Phencyclidine Scrn (Not Detect) Ur Amphetamines Screen (Not Detect) U Benzodiazepines Scrn (Not Detect) Urine Cocaine Screen (Not Detect) U Marijuana (THC) Screen (Not Detect) Influenza Type A (PCR) (Negative) Influenza Type B (PCR) (Negative) RSV RNA Qual (PCR) (Negative) SARS-CoV-2 RNA (RT-PCR) (Negative) 08/15/22 08/16/22 08/16/22 Range/Units 19:41 02:42 02:42 WBC (4.8-10.8) X10*3/uL RBC (4.60-5.80) X10*6/uL Hgb (14.0-18.0) g/dl Hct (42.0-52.0) % MCV (80.0-98.0) fL MCH (27.0-33.0) pg MCHC (31.0-36.0) g/dl RDW (11.0-16.0) % Plt Count (160-400) X10*3/uL MPV (9.4-12.4) fL Immature Gran % (Auto) (0.0-0.4) % Neut % (Auto) (45-73) % Lymph % (Auto) (20-40) % [place] % (Auto) (2-11) % Eos % (Auto) (0-4) % Baso % (Auto) (0-2) % Lymph # (Auto) (1.2-4.9) X10*3/uL [place] # (Auto) (0.1-1.2) X10*3/uL Eos # (Auto) (0.0-0.4) X10*3/uL Baso # (Auto) (0.0-0.2) X10*3/uL Abs Immat Gran (auto) (0.00-0.03) X10*3/uL Absolute Neuts (auto) (2.0-8.3) x10*3/uL Absolute Nucleated RBC (0.0-0.012) X10*3/uL Nucleated RBC % (auto) (0.0-0.2) /100WBC PT (10.0-13.1) SEC INR (0.9-1.1) APTT (26.0-36.4) SEC Sodium (135-145) mmol/L Potassium (3.3-5.1) mmol/L Chloride (96-108) mmol/L Carbon Dioxide (22-29) mmol/L Anion Gap (12-20) BUN (9-16) mg/dL Creatinine (0.5-1.4) mg/dL Estim Creat Clear Calc Estimated GFR Random Glucose (60-115) mg/dL Calcium (8.4-10.2) mg/dL Total Bilirubin (0.0-1.0) mg/dL Direct Bilirubin (0.0-0.5) mg/dL AST (5-37) U/L ALT (0-40) U/L Alkaline Phosphatase (39-117) U/L Total Protein (6.5-8.0) g/dL Albumin (3.5-5.0) g/dL Lipase (8-78) U/L Urine Color Yellow Urine Appearance Clear Urine pH 6.0 (5.0-9.0) Ur Specific [place] 1.015 (1.005-1.025) Urine Protein Negative (Neg-Trace) mg/dL Urine Glucose (UA) Negative (Negative) mg/dL Urine Ketones Negative (Negative) mg/dL Urine Blood Trace H (Negative) Urine Nitrite Negative (Negative) Ur Leukocyte Esterase Negative (Negative) Urine RBC 11-20 H (0-2) /HPF Urine WBC 0-5 (0-5) /HPF Ur Squamous Epith Cells 0-2 (0-2) /HPF Urine Bacteria None Seen (None Seen) Hyaline Casts 0-2 (0-2) /LPF Urine Opiates Screen Not Detected (Not Detect) Urine Fentanyl Screen Not Detected (Not Detect) Ur Barbiturates Screen Not Detected (Not Detect) Ur Phencyclidine Scrn Not Detected (Not Detect) Ur Amphetamines Screen Not Detected (Not Detect) U Benzodiazepines Scrn Not Detected (Not Detect) Urine Cocaine Screen Not Detected (Not Detect) U Marijuana (THC) Screen Not Detected (Not Detect) Influenza Type A (PCR) NEGATIVE (Negative) Influenza Type B (PCR) NEGATIVE (Negative) RSV RNA Qual (PCR) NEGATIVE (Negative) SARS-CoV-2 RNA (RT-PCR) NEGATIVE (Negative) <Carolina Clarke NP - Last Filed: 08/16/22 03:11> Independent Interpretation I performed an independent interpretation of an: Plain X-Ray and Ultrasound <Carolina Clarke NP - Last Filed: 08/16/22 03:11> Radiology Impression Discussion of test interpretation with radiology: I have reviewed the radiologist's reading. <Carolina Clarke NP - Last Filed: 08/16/22 03:11> Radiologist Impression: EXAMINATION: X-RAY RIGHT SHOULDER X-RAY RIGHT ELBOW X-RAY RIGHT WRIST CLINICAL INFORMATION: Pain.? COMPARISON: No similar priors.? TECHNIQUE: 3 views of the right shoulder. 3 views of the right elbow. 3 views of the right wrist.? FINDINGS: Right shoulder: No acute fracture or malalignment. Well-corticated 5 mm ossific body adjacent to the greater trochanter of the humerus and additional 6 mm well-corticated ossific body adjacent to the medial surface of the proximal humeral shaft. Mild degenerative changes of the acromioclavicular joint and glenohumeral joint. Normal appearance of the right clavicle and visualized right-sided ribs. Included portions of the right lung are clear. Right elbow: No acute fracture or malalignment. There is a 1.2 cm needle shaped foreign body projecting over the medial soft tissues of the distal forearm. No joint effusion. 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 Right wrist: No acute fracture or malalignment. Mild degenerative posterior arthritis of the first carpometacarpal joint. XR/XR elbow RT 2V IMPRESSION: 1.? No acute fractures or malalignment. 2.? 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 3.? Well-corticated ossific bodies adjacent to the greater trochanter of the humerus and medial surface of the proximal humeral shaft are nonspecific and could be sequela of prior trauma, calcific tendinosis or degenerative loose bodies. 4.? Nonspecific needle shape body in the soft tissues of the distal medial forearm, possibly foreign body. Recommend correlation with physical examination. EXAMINATION:? US VENOUS WITH DOPPLER UPPER EXTREMITY, RIGHT CLINICAL INFORMATION:? Needle and arm, foreign body COMPARISON:? None TECHNIQUE: Ultrasound of the upper extremity is performed using compression sonography and color and pulse Doppler flow with assessment of augmentation of flow. There is also imaging and Doppler assessment of the jugular and subclavian veins. Spectral analysis with color-flow imaging is performed. FINDINGS: Respiratory variation, normal compression, and augmented flow are noted throughout the upper extremity including the brachial, cubital, and radial and ulnar veins. Right axillary vein is not visualized secondary to patient positioning. There is normal flow in the internal jugular and subclavian veins. There is no visible deep or superficial thrombophlebitis. Known soft tissue foreign body is not clearly visualized, a linear echogenic focus in the right anterior cubital fossa may correspond to foreign body. If the patient's symptoms progress, a followup ultrasound in 5 -7 days might be of value to exclude proximal propagation from a nonvisualized distal arm vein. US/US venous duplex UE RT IMPRESSION: 1.? No DVT demonstrated in the right upper extremity. Known soft tissue foreign body is not clearly visualized, a linear echogenic focus in the right anterior cubital fossa may correspond to foreign body.? <Carolina Clarke NP - Last Filed: 08/16/22 03:11> Independent Historian Clinical information obtained from an independent historian. History obtained from or confirmed by: Friend <Carolina Clarke NP - Last Filed: 08/16/22 03:11> External Record Review External record reviewed: Outpatient record and Prior outpatient labs <Carolina Clarke NP - Last Filed: 08/16/22 03:11> Prescription Management I considered prescription management with: Antibiotic <Carolina Clarke NP - Last Filed: 08/16/22 03:11> Discharge Plan Discharge Clinical Impression: Arm pain, right, Foreign body in right upper extremity <DOUG Mann - Last Filed: 08/19/22 20:42> Patient Disposition: Home, Self-Care <DOUG Mann - Last Filed: 08/19/22 20:42> Instructions: Arm Pain (ED) <DOUG Mann - Last Filed: 08/19/22 20:42> Additional Instructions: You were evaluated for right arm pain. X-rays indicate a needle inside your arm. You must follow-up with Dr. Hannon, vascular surgeon, for needle removal. Please call his office for an appointment. Take Augmentin 875 mg twice a day for the next 10 days. Your Tdap vaccine was updated today. your lab values are unremarkable. Your DVT study is negative. Take Tylenol 650 mg every 6 hours as needed and Motrin 600 mg every 6 hours as needed for pain management. Write down what time you take these medications to prevent accidental overdose. Thank you for choosing this emergency department for evaluation. Please follow-up with primary care physician as needed. Return to the emergency depar tment for any new, concerning, or worsening symptoms. <DOUG Mann - Last Filed: 08/19/22 20:42> Prescriptions: New amoxicillin-pot clavulanate 875-125 mg tablet 1 tab PO Q12H 10 Days Qty: 20 0RF No Action oxycodone 5 mg tablet 5 mg PO Q6H PRN (Reason: pain) Qty: 10 0RF Rx Instructions: Partial Fill upon patient request. <DOUG Mann - Last Filed: 08/19/22 20:42> Referrals: Tim Hannon MD [Physician] - 1 day (Schedule an appointment for foreign body removal) <DOUG Mann - Last Filed: 08/19/22 20:42> Interventions: ED Discharge Assessment Last Done: 08/16/22 08:17 <DOUG Mann - Last Filed: 08/19/22 20:42> Discharge Date/Time: 08/16/22 08:18 <DOUG Mann - Last Filed: 08/19/22 20:42>
[2022-08-15] MEDS: Acetaminophen 325 MG TABLET 650 MG PO (19:34)
[2022-08-15 19:45] LABS: MANUAL DIFF FLAG NO
[2022-08-15 19:48] LABS: Eosinophils Absolute Auto 0.3 X10*3/uL (0.0-0.4); Eosinophils Percent Auto 3.3 % (0-4); Hematocrit 38.9 % (42.0-52.0); Hemoglobin 13.5 g/dl (14.0-18.0); Imm Gran Abs Auto 0.04 X10*3/uL (0.00-0.03); Imm Gran Pct Auto 0.4 % (0.0-0.4); Lymphocytes Absolute Auto 1.9 X10*3/uL (1.2-4.9); Lymphocytes Percent Auto 20.8 % (20-40); Mean Corpuscular HGB Conc 34.7 g/dl (31.0-36.0); Mean Corpuscular Hemoglobin 30.1 pg (27.0-33.0); Mean Corpuscular Volume 86.8 fL (80.0-98.0); Mean Platelet Volume 10.5 fL (9.4-12.4); Monocytes Absolute Auto 0.8 X10*3/uL (0.1-1.2); Monocytes Percent Auto 8.2 % (2-11); Neutrophils Absolute Auto 6.3 x10*3/uL (2.0-8.3); Neutrophils Percent Auto 67.3 % (45-73); Platelet Count 179 X10*3/uL (160-400); Red Blood Count 4.48 X10*6/uL (4.60-5.80); Red Cell Distribution Width 12.6 % (11.0-16.0); White Blood Count 9.3 X10*3/uL (4.8-10.8)
[2022-08-15 19:54] LABS: Prothrombin Time 11.8 SEC (10.0-13.1)
[2022-08-15 19:57] LABS: Partial Thromboplastin Time 32.5 SEC (26.0-36.4)
[2022-08-15 20:13] LABS: Alanine Aminotransferase 19 U/L (0-40); Albumin Level 4.3 g/dL (3.5-5.0); Alkaline Phosphatase 71 U/L (39-117); Anion Gap 13 (12-20); Aspartate Amino Transferase 16 U/L (5-37); Bilirubin Direct 0.2 mg/dL (0.0-0.5); Bilirubin Total 0.4 mg/dL (0.0-1.0); Blood Urea Nitrogen 17 mg/dL (9-16); Calcium 9.5 mg/dL (8.4-10.2); Carbon Dioxide 23 mmol/L (22-29); Chloride 108 mmol/L (96-108); Creatinine Clr Calc Pharmacy 90.4; Estimated Glomerular Filt Rate > 60; Glucose Random 125 mg/dL (60-115); Lipase 31 U/L (8-78); Potassium 4.1 mmol/L (3.3-5.1); Sodium 140 mmol/L (135-145); Total Protein 6.9 g/dL (6.5-8.0)
[2022-08-15 20:31] LABS: Influenza A PCR NEGATIVE (Negative); Influenza B PCR NEGATIVE (Negative); Resp Syncy Virus RNA Qual PCR NEGATIVE (Negative); SARS COV2 PCR INHOUSE NEGATIVE (Negative)
[2022-08-15] MEDS: Diphth,Pertus(ACell),Tet Adult 0.5 ML SYRINGE IM (21:50)
--- NOTE | 2022-08-15 22:21 | PC.NURSE ---
pt continues to ring call veliz- moaning, grimacing. labs and imaging reviewed by ELECTRICAL SIGN WIRER- pt was determined safe for discharge, attempted discharge with interpreter deaf- pt refused and per american sign language interpreter I cant go home like this provider notified via tiger text
--- NOTE | 2022-08-15 22:56 | PC.NURSE ---
discharge instructions reviewed with patient with management professional- pt understands he is stable for discharge, IV's removed. Pt understands that he needs to follow up [facility] with vascular surgery for removal of foreign body
--- NOTE | 2022-08-15 23:00 | PC.NURSE ---
upon discharge pt stated that he did not have a ride home and that his family works nights until 0800. charge informed
[2022-08-16 00:06] VITALS: BP 132/69; PULSE 57; RESP 17; O2SAT 93
--- NOTE | 2022-08-16 00:33 | PC.NURSE ---
RN in room with patient and bedside visitor at great length while awaiting pneumatic hoist operator and trying to assist with transportation home. It was finally revealed that the pt does not have keys to his home and his sister is currently working overnight and not does not get out of work until 0800 and she would be willing to pick him and his bedside visitor up from the ED. Pt requesting food/beverage as he reports not eating all day. Staff to provide for him and visitor per request. Pt also reporting increasing pain, per MARKETING PROFESSOR pt o
[2022-08-16] MEDS: Ibuprofen 600 MG TABLET PO (01:43)
[2022-08-16 02:57] LABS: Appearance Urine Clear; Color Urine Yellow; Glucose Urine UA Negative (Negative); Leukocyte Esterase Urine Negative (Negative); Nitrite Urine Negative (Negative); Specific Gravity - Urine 1.015 (1.005-1.025); UMIC TRIGGER UACC YES; Urine Blood Trace (Negative); Urine Ketones Negative (Negative); Urine Protein Negative (Neg-Trace)
[2022-08-16 03:02] LABS: Bacteria Urine None Seen (None Seen); Hyaline Casts Urine 0-2 /LPF (0-2); Squamous Epithelial Cell Urine 0-2 /HPF (0-2); WBC Urine 0-5 /HPF (0-5)
[2022-08-16 03:04] LABS: Amphetamine Screen Urine Not Detected (Not Detect); Barbiturates, Urine Not Detected (Not Detect); Benzodiazepines Screen Urine Not Detected (Not Detect); Cannabinoid Screen Urine Not Detected (Not Detect); Cocaine Screen Urine Not Detected (Not Detect); Fentanyl, urine Not Detected (Not Detect); Opiate Screen Urine Not Detected (Not Detect); Phencyclidine Screen Urine Not Detected (Not Detect)
[2022-08-16 06:26] VITALS: BP 121/76; PULSE 81; RESP 17; TEMP 36.7; O2SAT 96
== END 2022-08-16 08:18 | disposition home or self-care (01) ==
PROVIDERS: Nurse Practitioner Family; Emergency Provider Emergency Medicine; PCP Family Medicine
DX: S60.811A Abrasion of right wrist, initial encounter (principal); M79.601 Pain in right arm; R60.0 Localized edema; X58.XXXA Exposure to other specified factors, initial encounter; Y93.89 Activity, other specified; Y92.9 Unspecified place or not applicable; Y99.9 Unspecified external cause status; Z20.822 Contact with and (suspected) exposure to COVID-19; Z79.899 Other long term (current) drug therapy
CPT/HCPCS: 0241U; 73030; 73070; 73100; 80048; 80076; 80307; 81001; 83690; 85025; 85610; 85730; 90471; 90715; 93971; 99284

== ENCOUNTER 2022-08-16 09:27 | Emergency (ER) | payer OTHER, MEDICAID, SELFPAY ==
[2022-08-16 09:45] VITALS: BP 112/64; PULSE 52; RESP 16; TEMP 36.1; O2SAT 96; BMI 27.6
--- NOTE | 2022-08-16 11:01 | ECG_ITS ---
Test Reason : dizziness Blood Pressure : / mmHG Vent. Rate : 053 BPM Atrial Rate : 053 BPM P-R Int : 184 ms QRS Dur : 092 ms QT Int : 438 ms P-R-T Axes : 065 059 029 degrees QTc Int : 410 ms Sinus bradycardia Otherwise normal ECG No significant changes when compared with the previous EKG of 12 jul 2022 Referred By: Jac Maki Electronically Signed By:MEGAN LOOMIS
--- NOTE | 2022-08-16 12:04 | PC.NURSE ---
EKG & labs being obtained at this time. Video senior support engineer for ASL being used at the bedside.
--- NOTE | 2022-08-16 12:32 | ED.GENADULT ---
HPI - General Adult General Chief complaint: Extremity Problem Stated complaint: R arm pain Time Seen by Provider: 08/16/22 10:18 History of Present Illness HPI narrative: this history is taken with a certified court interpreter video interpreter for the deaf patient complains of right shoulder pain which makes it difficult for him to stand up from the chair as he needs both arms to stand up, he denies any injury he has no numbness or weakness he denies any redness any fever any chest pain no shortness of breath He was here last night for the same problem and had x-ray and ultrasound done with no sign of blood clot, no acute fractures He says the main reason he is back today is it continues to be very painful, a sling was not helpful and Tylenol is not relieving the pain and it is hard for him to move around his apartment as it hurts his shoulder when he pushes to stand up from a chair Related Data Previous Rx's Medication Instructions Recorded amoxicillin 875 mg-potassium 1 tab PO Q12H 10 days #20 tabs 08/16/22 clavulanate 125 mg tablet oxycodone 5 mg tablet 5 mg PO Q6H PRN pain #10 tabs 08/16/22 Allergies Allergy/AdvReac Type Severity Reaction Status Date / Time No Known Allergies Allergy Unverified 04/27/20 15:29 [No Known Allergies*] Review of Systems Review of Systems: no headache no neck pain no chest pain no shortness of breath no fainting no feeling faint no stiff neck no neck pain no abdominal pain no nausea or vomiting no muscle weakness no loss of sensation Yes all other systems are reviewed and are negative PMFSH Past Medical History Source: nursing notes reviewed Social History Social History Advance Directives: No Advance Directives Information Provided: Yes Physical Exam ED Vital Signs: Vital Signs - 24 hr 08/16/22 09:45 Temperature 96.9 F Pulse Rate 52 Respiratory Rate 16 Blood Pressure 112/64 Pulse Oximetry 96 Oxygen Delivery Method Room Air BMI result Body Mass Index 27.6 general appearance is no distress Head is normocephalic atraumatic The neck is supple and nontender Chest clear to auscultation bilateral no chest wall tenderness The abdomen is soft nontender The right arm has limited range of motion in the shoulder there is full range of motion in the wrist and the elbow, there is tenderness over the anterior shoulder there is no redness or warmth to the right shoulder joint, there is no swelling, the skin is intact and normal in appearance It is neurovascular intact distal and there is no significant tenderness anywhere else in the arm except the shoulder No tenderness or swelling to other extremities The skin no rashes Neuro no motor or sensory deficits Course Course Course Narrative: EKG was done for his right arm pain and the EKG showed a sinus bradycardia of 53, no acute ST changes, no acute ischemic changes, intervals were normal CBC and chemistry were checked yesterday with no acute abnormalities Yesterday an ultrasound was done with no DVT demonstrated in the right arm Right shoulder x-ray showed a well corticated 5 mm ossific body as well as mild degenerative changes of the AC joint An incidental finding when a right elbow x-ray was done yesterday showed a 1.2 cm needle shaped foreign body over the soft tissues of the distal forearm This does not correlate with the area of pain or tenderness Over the course of the visit the patient was concerned that he could not do his activities of daily life at home because of the pain in his shoulder which prevents him from standing from the chair He was seen by social work who advised him best plan was to go home , he is able to stand up from the chair but it is uncomfortable Further discussion with the patient he is given a prescription for oxycodone for stronger analgesics and will follow with orthopedics and is discharged home Discharge Plan Discharge Clinical Impression: Acute pain of right shoulder Patient Disposition: Home, Self-Care Additional Instructions: x-ray showed some arthritic changes and loose bodies in the right shoulder so follow with orthopedist for further evaluation of the right shoulder Return any time any worse condition or concerns Prescriptions: New oxycodone 5 mg tablet 5 mg PO Q6H PRN (Reason: pain) Qty: 10 0RF Rx Instructions: Partial Fill upon patient request. No Action amoxicillin-pot clavulanate 875-125 mg tablet 1 tab PO Q12H 10 Days Qty: 20 0RF Referrals: Glen Hernandez MD [Physician] - ( right shoulder pain)
--- NOTE | 2022-08-16 12:36 | MHC.CM.ED ---
Addendum entered by Erica Garcia 08/16/22 12:53: Obtained cell number for [facility] communication: [phone]: Explained to pt and guest that they can text the dedicated truck driver for facilitation w/communication. All parties understood. ED CM to arrange LYFT. Original Note: Received consult for assessment of d/c needs: pt is deaf and communicates w/ASL. His friend is present in room and interprets using the [facility] virtual veneer manufacturer. Pt resides at home w/sister. He has no DME or services and uses public transportation when needed. He states he has chronic shoulder and arm pain limiting his abilities to push self out of chair. He does not want STR or services at home and is hoping to remain in the hospital for pain medications. Discussed criteria for admission and pt's need to follow up w/outpt providers for his chronic pain needs. Pt states he is willing to return to home if he can be medicated prior to d/c and have a script for pain medication. This relayed to ED provider. Will arrange for LYFT to transport pt and his veneer manufacturer to home at [address] [place] [address].
[2022-08-16] MEDS: oxyCODONE HCl Immed Release 5 MG TABLET PO (13:02)
== END 2022-08-16 13:43 | disposition home or self-care (01) ==
PROVIDERS: Emergency Provider Emergency Medicine; PCP Family Medicine
DX: M25.511 Pain in right shoulder (principal); R42 Dizziness and giddiness
CPT/HCPCS: 93005; 99283

== ENCOUNTER → 2022-09-12 10:55 | Outpatient (BNVA) | payer OTHER, MEDICAID, SELFPAY | PROVIDERS: PCP Family Medicine; Visit Provider Physician Assistant | DX: Z13.89 Encounter for screening for other disorder (principal) ==

== ENCOUNTER 2022-11-26 18:33 | Emergency (ER) | payer MEDICARE, MEDICAID, SELFPAY ==
--- NOTE | ~2022-11-26 | XR_ITS ---
EXAMINATION: Chest and thoracic spine x-ray CLINICAL INFORMATION: Pain COMPARISON: Previous chest x-ray November 2016 TECHNIQUE: One view of the chest. 3 views of the thoracic spine. FINDINGS: Chest: The cardiac and mediastinal contours are normal. The lungs are clear. No pleural effusion or pneumothorax. Degenerative changes of the thoracic spine. Thoracic spine: Bone alignment is normal. No fracture or dislocation. There is multilevel degenerative disc disease and spondylosis. Paraspinal soft tissues are normal. Swimmer's view demonstrates postlaminectomy changes from C3 to C6. XR/XR thoracic spine 2V IMPRESSION: Chest x-ray: Unremarkable examination. Thoracic spine x-ray: Multilevel degenerative disc disease and spondylosis.
--- NOTE | ~2022-11-26 | XR_ITS ---
EXAMINATION: Chest and thoracic spine x-ray CLINICAL INFORMATION: Pain COMPARISON: Previous chest x-ray November 2016 TECHNIQUE: One view of the chest. 3 views of the thoracic spine. FINDINGS: Chest: The cardiac and mediastinal contours are normal. The lungs are clear. No pleural effusion or pneumothorax. Degenerative changes of the thoracic spine. Thoracic spine: Bone alignment is normal. No fracture or dislocation. There is multilevel degenerative disc disease and spondylosis. Paraspinal soft tissues are normal. Swimmer's view demonstrates postlaminectomy changes from C3 to C6. XR/XR chest 1V IMPRESSION: Chest x-ray: Unremarkable examination. Thoracic spine x-ray: Multilevel degenerative disc disease and spondylosis.
--- NOTE | ~2022-11-26 | CT_ITS ---
EXAMINATION: CT ABDOMEN AND PELVIS WITHOUT CONTRAST CLINICAL INFORMATION: Lower abdominal pain and dark urine COMPARISON: Previous CT of the abdomen and pelvis most recent July 2022 TECHNIQUE: Multidetector volumetric imaging was performed from the superior aspect of the liver through the pubic symphysis. Sagittal and coronal reformatted images were obtained on the technologist's workstation. This CT examination was performed using dose optimization techniques as appropriate, variously including the following: *Automated exposure control *Adjustment of mA and/or kV according to patient size (this includes techniques or standardized protocols for targeted exams where dose is matched to indication/reason for exam; i.e. extremities or head) *Use of iterative reconstruction technique DLP: 655 mGy-cm FINDINGS: Exam is limited due to motion. LUNG BASES: Prominent breast tissue seen on the left. Right not included in the [id number] for comparison. Lung bases are clear. LIVER, GALLBLADDER, AND BILIARY TREE: The liver is normal in size, shape, and attenuation. No focal hepatic lesion or biliary ductal dilatation is present. The gallbladder has been removed. PANCREAS: Unremarkable. SPLEEN: Unremarkable. ADRENAL GLANDS: Unremarkable. KIDNEYS AND URETERS: The kidneys are normal in size, shape, and attenuation. No hydronephrosis, hydroureter, or calculi seen. No perinephric stranding. BLADDER: Unremarkable. GASTROINTESTINAL TRACT: The small and large bowel are unremarkable. The appendix is not seen. ABDOMINAL WALL: Bilateral inguinal hernias containing fat. LYMPH NODES: Normal. VASCULAR: Unremarkable. PELVIC VISCERA: Unremarkable. OSSEOUS STRUCTURES: Degenerative changes of the spine and hip joints. CT/CT abdomen pelvis wo IV con IMPRESSION: Limited exam due to motion. No stone seen. Prominent breast tissue seen on the left. Right not included in the [id number] for comparison. Clinical correlation recommended. Fleischner guidelines were followed.
[2022-11-26 18:44] VITALS: BP 119/81; PULSE 67; O2SAT 97
--- NOTE | 2022-11-26 18:44 | ED_ITS ---
HPI - Abdominal Pain General Chief Complaint: Abdominal Pain <TINY Hilton Last Filed: 11/26/22 18:45> Stated Complaint: BACK PAIN <TINY Hilton - Last Filed: 11/26/22 18:45> Time Seen by Provider: 11/26/22 22:13 <TINY Hilton - Last Filed: 11/26/22 18:45> Source: patient, RN notes reviewed, old records reviewed and sales and marketing executive (Video creative services designer) <Shawn Peterson - Last Filed: 11/27/22 01:37> Mode of arrival: EMS <Shawn Peterson - Last Filed: 11/27/22 01:37> Limitations: language barrier (Patient is deaf and requires video creative services designer) <Shawn Peterson - Last Filed: 11/27/22 01:37> History of Present Illness HPI narrative: 62-year-old male to female transgender presents for evaluation of ?pain all over. ? She initially a reported lower abdominal pain with dark urine. At the time my evaluation she started to complain of upper to mid back pain and chest pain that is worse if she moves or changes positions She also feels as though she has a urine infection because ?it smells really bad. Denies any fevers or chills. She states that she called her doctor and was told to come to the emergency department <Shawn Peterson - Last Filed: 11/27/22 01:37> Related Data Home Medications: Previous Rx's Medication Instructions Recorded oxycodone 5 mg tablet 5 mg PO Q6H PRN pain #10 tabs 08/16/22 methocarbamol 500 mg tablet 500 mg PO TID PRN muscle spasm #20 11/27/22 tabs naproxen 500 mg tablet 500 mg PO BID PRN pain #20 tabs 11/27/22 <TINY Hilton Last Filed: 11/26/22 18:45> Allergies/Adverse Reactions: Allergies Allergy/AdvReac Type Severity Reaction Status Date / Time No Known Allergies Allergy Unverified 09/12/22 11:08 [No Known Allergies*] <TINY Hilton Last Filed: 11/26/22 18:45> Review of Systems Constitutional: Reports body ache(s), Denies chills and Denies fever(s) <Shawn Peterson - Last Filed: 11/27/22 01:37> Cardiovascular: Reports chest pain <Shawn Peterson - Last Filed: 11/27/22 01:37> Gastrointestinal: Reports abdominal pain and Reports heartburn <Shawn Peterson - Last Filed: 11/27/22 01:37> Genitourinary: Reports urinary frequency <Shawn Peterson - Last Filed: 11/27/22 01:37> Comments: Foul-smelling urine <Shawn Peterson - Last Filed: 11/27/22 01:37> Musculoskeletal: Reports back pain, Reports myalgias and Reports muscle cramps <Shawn Peterson - Last Filed: 11/27/22 01:37> PMFSH Past Medical History Medical History: Medical History (Updated 11/27/22 @ 00:30 by Shawn Peterson) Depression Hypertension <TINY Hilton - Last Filed: 11/26/22 18:45> Surgical History: Surgical History (Updated 09/12/22 @ 11:09 by GERMAIN Gill) Hx of neck surgery <TINY Hilton - Last Filed: 11/26/22 18:45> Social History Social History: Social History (Updated 09/12/22 @ 11:10 by GERMAIN Gill) Patient Tobacco Use Status: Never used Tobacco Advance Directives: No Advance Directives Information Provided: No Current occupational status: disabled Current occupation: right handed <TINY Hilton - Last Filed: 11/26/22 18:45> Physical Exam ED Vital Signs: Vital Signs - 24 hr 11/26/22 19:11 11/26/22 22:25 Temperature 96.7 F L Pulse Rate 76 64 Respiratory Rate 18 Blood Pressure 96/56 L 120/49 L Pulse Oximetry 98 100 Oxygen Delivery Method Room Air Room Air BMI result Body Mass Index 35.9 <TINY Hilton - Last Filed: 11/26/22 18:45> Vital Signs - 24 hr 11/26/22 19:11 11/26/22 22:25 Temperature 96.7 F L Pulse Rate 76 64 Respiratory Rate 18 Blood Pressure 96/56 L 120/49 L Pulse Oximetry 98 100 Oxygen Delivery Method Room Air Room Air BMI result Body Mass Index 35.9 < Last Filed: 11/27/22 01:37> Const General: healthy appearing, comfortable, no acute distress, alert and awake < Last Filed: 11/27/22 01:37> Nutritional Appearance: well nourished < Last Filed: 11/27/22 01:37> Orientation/consciousness: patient oriented x3 < Last Filed: 11/27/22 01:37> HENMT Head: Yes normocephalic and Yes atraumatic < Last Filed: 11/27/22 01:37> Throat: Yes posterior oropharynx normal < Last Filed: 11/27/22 01:37> Eyes Eyelids: Yes eyelids normal < Last Filed: 11/27/22 01:37> Conjunctivae: conjunctivae normal < Last Filed: 11/27/22 01:37> Sclerae: sclerae normal < Last Filed: 11/27/22 01:37> Corneas: corneas normal < Last Filed: 11/27/22 01:37> Pupils: Equal, round and reactive pupils present < Last Filed: 11/27/22 01:37> EOM: EOMs intact bilaterally < Last Filed: 11/27/22 01:37> Neck Neck: Yes full ROM < Last Filed: 11/27/22 01:37> Chest Other: Diffusely tender to palpation of the anterior chest without crepitus < Last Filed: 11/27/22 01:37> Resp Effort & Inspection: normal respiratory effort, able to speak in complete sentences, no audible wheezes and not labored < Last Filed: 11/27/22 01:37> Auscultation: clear to auscultation bilaterally <Shawn Flores Last Filed: 11/27/22 01:37> Cardio Rate: regular rate <Shawnbandar Flores Last Filed: 11/27/22 01:37> Rhythm: regular rhythm <Shawn OCecil - Last Filed: 11/27/22 01:37> GI Palpation (GI): Soft to palpation, not firm and Tenderness to palpation present (GI) (Diffusely tender without guarding or rebound.) with no rebound tenderness <Shawn OSohail - Last Filed: 11/27/22 01:37> Auscultation: normoactive bowel sounds <Shawn OSohail - Last Filed: 11/27/22 01:37> Back/Spine/Pelvis Other: Tenderness to the thoracic paraspinous region without significant deformity <Shawn OSohail - Last Filed: 11/27/22 01:37> Skin General skin exam: no rashes or lesions noted and elasticity normal <Shawn OCecil - Last Filed: 11/27/22 01:37> Neuro General: patient oriented x3 <Shawn OCecil - Last Filed: 11/27/22 01:37> Cranial nerves: Yes Equal, round and reactive pupils present and Yes Bilaterally intact EOM present <Shawnbandar Flores Last Filed: 11/27/22 01:37> Cognition (Neuro): normal cognition <Shawn OCecil - Last Filed: 11/27/22 01:37> Extrem Other: Moving all extremities well without any obvious deformities <Shawnbandar Flores Last Filed: 11/27/22 01:37> Course Course Course Narrative: This is an RME: Additional HPI, ROS, PE not included below will be deferred to primary provider. This is a 62 old male transgender to female presenting to the emergency department complaints of lower abdominal pain, dark urine coming from [facility] where they were concerned as abdomen was slightly distended, they obtained a urine which was clean. Patient reports dark urine, frequent urination. Denies fevers, chills, chest pain, shortness of breath, nausea, vomiting. Physical exam slightly distended abdomen. Tenderness to lower abdomen Plan labs, UA, CT of the abdomen pelvis. <TINY Hilton - Last Filed: 11/26/22 18:45> Reevaluation(s) Reevaluation #1: UA does not show any evidence of infection. Chest x-ray was clear. X-ray of thoracic spine shows degenerative joint disc disease with such because the patient's back pain. This can be treated with NSAIDs and muscle relaxers. <Shawn Peterson - Last Filed: 11/27/22 01:37> Time: 00:29 <Shawn Peterson - Last Filed: 11/27/22 01:37> Reevaluation #2: The patient is upset as the hospital is unable to get the patient home. There are unfortunately no taxes sources around. We are trying to get the patient a LYFT home, however it has been difficult to get these at this time of night. The graphics manager was not that into sales and marketing executive after over 20 minutes. We are communicating by writing back and forth on a piece of paper. <Shawn Peterson - Last Filed: 11/27/22 01:37> Time: 01:36 <Shawn Peterson - Last Filed: 11/27/22 01:37> Medical Decision Making Medical Decision Making MDM Narrative: Patient interviewed with graphics manager. She complains of numerous complaints including chest pain, back pain that she did not report any triage. This is worse with changing positions and movement. It is reproducible on exam. Does not appear to be cardiac in nature. Also complains of abdominal pain, foul-smelling urine. CT scan of the abdomen pelvis does not show any acute abnormalities. No evidence of obstruction or infectious process. UA is still pending as the patient has not yet provided a sample. Pat ient's pain was treated with Toradol IM <Shawn Peterson - Last Filed: 11/27/22 01:37> Differential Diagnosis UTI Cystitis Muscle spasm Muscular pain Chest pain Obstructive uropathy <Shawn Peterson - Last Filed: 11/27/22 01:37> Lab Data Result Diagrams: 11/26/22 19:21 11/26/22 19:21 <TINY Hilton - Last Filed: 11/26/22 18:45> Labs: Lab Results 11/26/22 11/26/22 11/26/22 Range/Units 19:21 19:21 19:21 WBC 9.9 (4.8-10.8) X10*3/uL RBC 4.85 (4.60-5.80) X10*6/uL Hgb 14.5 (14.0-18.0) g/dl Hct 42.8 (42.0-52.0) % MCV 88.2 (80.0-98.0) fL MCH 29.9 (27.0-33.0) pg MCHC 33.9 (31.0-36.0) g/dl RDW 12.8 (11.0-16.0) % Plt Count 227 D (160-400) X10*3/uL MPV 10.5 (9.4-12.4) fL Immature Gran % (Auto) 0.6 H (0.0-0.4) % Neut % (Auto) 72.9 (45-73) % Lymph % (Auto) 15.6 L (20-40) % [place] % (Auto) 7.9 (2-11) % Eos % (Auto) 2.9 (0-4) % Baso % (Auto) 0.1 (0-2) % Lymph # (Auto) 1.5 (1.2-4.9) X10*3/uL [place] # (Auto) 0.8 (0.1-1.2) X10*3/uL Eos # (Auto) 0.3 (0.0-0.4) X10*3/uL Baso # (Auto) 0.0 (0.0-0.2) X10*3/uL Abs Immat Gran (auto) 0.06 H (0.00-0.03) X10*3/uL Absolute Neuts (auto) 7.2 (2.0-8.3) x10*3/uL Absolute Nucleated RBC 0.000 (0.0-0.012) X10*3/uL Nucleated RBC % (auto) 0.0 (0.0-0.2) /100WBC Sodium 140 (135-145) mmol/L Potassium 4.4 (3.3-5.1) mmol/L Chloride 109 H (96-108) mmol/L Carbon Dioxide 22 (22-29) mmol/L Anion Gap 13 (12-20) BUN 23 H (9-16) mg/dL Creatinine 0.98 (0.5-1.4) mg/dL Estim Creat Clear Calc 96.0 Estimated GFR > 60 Random Glucose 100 (60-115) mg/dL Calcium 9.2 (8.4-10.2) mg/dL Magnesium 1.9 (1.6-2.6) mg/dL Total Bilirubin 0.7 (0.0-1.0) mg/dL AST 17 (5-37) U/L ALT 20 (0-40) U/L Alkaline Phosphatase 68 (39-117) U/L Total Protein 6.9 (6.5-8.0) g/dL Albumin 4.4 (3.5-5.0) g/dL Lipase 27 (8-78) U/L Urine Color Urine Appearance Urine pH (5.0-9.0) Ur Specific [place] (1.005-1.025) Urine Protein (Neg-Trace) mg/dL Urine Glucose (UA) (Negative) mg/dL Urine Ketones (Negative) mg/dL Urine Blood (Negative) Urine Nitrite (Negative) Ur Leukocyte Esterase (Negative) COVID-19 ([facility]) Negative (Negative) COVID-19 Clin Com See Note 11/27/22 Range/Units 00:18 WBC (4.8-10.8) X10*3/uL RBC (4.60-5.80) X10*6/uL Hgb (14.0-18.0) g/dl Hct (42.0-52.0) % MCV (80.0-98.0) fL MCH (27.0-33.0) pg MCHC (31.0-36.0) g/dl RDW (11.0-16.0) % Plt Count (160-400) X10*3/uL MPV (9.4-12.4) fL Immature Gran % (Auto) (0.0-0.4) % Neut % (Auto) (45-73) % Lymph % (Auto) (20-40) % [place] % (Auto) (2-11) % Eos % (Auto) (0-4) % Baso % (Auto) (0-2) % Lymph # (Auto) (1.2-4.9) X10*3/uL [place] # (Auto) (0.1-1.2) X10*3/uL Eos # (Auto) (0.0-0.4) X10*3/uL Baso # (Auto) (0.0-0.2) X10*3/uL Abs Immat Gran (auto) (0.00-0.03) X10*3/uL Absolute Neuts (auto) (2.0-8.3) x10*3/uL Absolute Nucleated RBC (0.0-0.012) X10*3/uL Nucleated RBC % (auto) (0.0-0.2) /100WBC Sodium (135-145) mmol/L Potassium (3.3-5.1) mmol/L Chloride (96-108) mmol/L Carbon Dioxide (22-29) mmol/L Anion Gap (12-20) BUN (9-16) mg/dL Creatinine (0.5-1.4) mg/dL Estim Creat Clear Calc Estimated GFR Random Glucose (60-115) mg/dL Calcium (8.4-10.2) mg/dL Magnesium (1.6-2.6) mg/dL Total Bilirubin (0.0-1.0) mg/dL AST (5-37) U/L ALT (0-40) U/L Alkaline Phosphatase (39-117) U/L Total Protein (6.5-8.0) g/dL Albumin (3.5-5.0) g/dL Lipase (8-78) U/L Urine Color Yellow Urine Appearance Clear Urine pH 5.5 (5.0-9.0) Ur Specific [place] 1.025 (1.005-1.025) Urine Protein Negative (Neg-Trace) mg/dL Urine Glucose (UA) Negative (Negative) mg/dL Urine Ketones Trace (Negative) mg/dL Urine Blood Negative (Negative) Urine Nitrite Negative (Negative) Ur Leukocyte Esterase Negative (Negative) COVID-19 ([facility]) (Negative) COVID-19 Clin Com <TINY Hilton - Last Filed: 11/26/22 18:45> Lab Results 11/26/22 11/26/22 11/26/22 Range/Units 19:21 19:21 19:21 WBC 9.9 (4.8-10.8) X10*3/uL RBC 4.85 (4.60-5.80) X10*6/uL Hgb 14.5 (14.0-18.0) g/dl Hct 42.8 (42.0-52.0) % MCV 88.2 (80.0-98.0) fL MCH 29.9 (27.0-33.0) pg MCHC 33.9 (31.0-36.0) g/dl RDW 12.8 (11.0-16.0) % Plt Count 227 D (160-400) X10*3/uL MPV 10.5 (9.4-12.4) fL Immature Gran % (Auto) 0.6 H (0.0-0.4) % Neut % (Auto) 72.9 (45-73) % Lymph % (Auto) 15.6 L (20-40) % [place] % (Auto) 7.9 (2-11) % Eos % (Auto) 2.9 (0-4) % Baso % (Auto) 0.1 (0-2) % Lymph # (Auto) 1.5 (1.2-4.9) X10*3/uL [place] # (Auto) 0.8 (0.1-1.2) X10*3/uL Eos # (Auto) 0.3 (0.0-0.4) X10*3/uL Baso # (Auto) 0.0 (0.0-0.2) X10*3/uL Abs Immat Gran (auto) 0.06 H (0.00-0.03) X10*3/uL Absolute Neuts (auto) 7.2 (2.0-8.3) x10*3/uL Absolute Nucleated RBC 0.000 (0.0-0.012) X10*3/uL Nucleated RBC % (auto) 0.0 (0.0-0.2) /100WBC Sodium 140 (135-145) mmol/L Potassium 4.4 (3.3-5.1) mmol/L Chloride 109 H (96-108) mmol/L Carbon Dioxide 22 (22-29) mmol/L Anion Gap 13 (12-20) BUN 23 H (9-16) mg/dL Creatinine 0.98 (0.5-1.4) mg/dL Estim Creat Clear Calc 96.0 Estimated GFR > 60 Random Glucose 100 (60-115) mg/dL Calcium 9.2 (8.4-10.2) mg/dL Magnesium 1.9 (1.6-2.6) mg/dL Total Bilirubin 0.7 (0.0-1.0) mg/dL AST 17 (5-37) U/L ALT 20 (0-40) U/L Alkaline Phosphatase 68 (39-117) U/L Total Protein 6.9 (6.5-8.0) g/dL Albumin 4.4 (3.5-5.0) g/dL Lipase 27 (8-78) U/L Urine Color Urine Appearance Urine pH (5.0-9.0) Ur Specific [place] (1.005-1.025) Urine Protein (Neg-Trace) mg/dL Urine Glucose (UA) (Negative) mg/dL Urine Ketones (Negative) mg/dL Urine Blood (Negative) Urine Nitrite (Negative) Ur Leukocyte Esterase (Negative) COVID-19 ([facility]) Negative (Negative) COVID-19 Clin Com See Note 11/27/22 Range/Units 00:18 WBC (4.8-10.8) X10*3/uL RBC (4.60-5.80) X10*6/uL Hgb (14.0-18.0) g/dl Hct (42.0-52.0) % MCV (80.0-98.0) fL MCH (27.0-33.0) pg MCHC (31.0-36.0) g/dl RDW (11.0-16.0) % Plt Count (160-400) X10*3/uL MPV (9.4-12.4) fL Immature Gran % (Auto) (0.0-0.4) % Neut % (Auto) (45-73) % Lymph % (Auto) (20-40) % [place] % (Auto) (2-11) % Eos % (Auto) (0-4) % Baso % (Auto) (0-2) % Lymph # (Auto) (1.2-4.9) X10*3/uL [place] # (Auto) (0.1-1.2) X10*3/uL Eos # (Auto) (0.0-0.4) X10*3/uL Baso # (Auto) (0.0-0.2) X10*3/uL Abs Immat Gran (auto) (0.00-0.03) X10*3/uL Absolute Neuts (auto) (2.0-8.3) x10*3/uL Absolute Nucleated RBC (0.0-0.012) X10*3/uL Nucleated RBC % (auto) (0.0-0.2) /100WBC Sodium (135-145) mmol/L Potassium (3.3-5.1) mmol/L Chloride (96-108) mmol/L Carbon Dioxide (22-29) mmol/L Anion Gap (12-20) BUN (9-16) mg/dL Creatinine (0.5-1.4) mg/dL Estim Creat Clear Calc Estimated GFR Random Glucose (60-115) mg/dL Calcium (8.4-10.2) mg/dL Magnesium (1.6-2.6) mg/dL Total Bilirubin (0.0-1.0) mg/dL AST (5-37) U/L ALT (0-40) U/L Alkaline Phosphatase (39-117) U/L Total Protein (6.5-8.0) g/dL Albumin (3.5-5.0) g/dL Lipase (8-78) U/L Urine Color Yellow Urine Appearance Clear Urine pH 5.5 (5.0-9.0) Ur Specific [place] 1.025 (1.005-1.025) Urine Protein Negative (Neg-Trace) mg/dL Urine Glucose (UA) Negative (Negative) mg/dL Urine Ketones Trace (Negative) mg/dL Urine Blood Negative (Negative) Urine Nitrite Negative (Negative) Ur Leukocyte Esterase Negative (Negative) COVID-19 ([facility]) (Negative) COVID-19 Clin Com <Shawn Peterson - Last Filed: 11/27/22 01:37> Medications Administered Discontinued Medications Generic Name Dose Route Start Last Admin Trade Name Freq PRN Reason Stop Dose Admin Ketorolac Tromethamine 30 mg 11/26/22 22:33 11/26/22 23:00 Ketorolac Tromethamine 30 Mg/Ml Vial IM 11/26/22 22:34 30 mg ONCE ONE Administration <TINY Hilton - Last Filed: 11/26/22 18:45> Medications Administered Discontinued Medications Generic Name Dose Route Start Last Admin Trade Name Natalia PRN Reason Stop Dose Admin Ketorolac Tromethamine 30 mg 11/26/22 22:33 11/26/22 23:00 Ketorolac Tromethamine 30 Mg/Ml Vial IM 11/26/22 22:34 30 mg ONCE ONE Administration <Shawn Peterson - Last Filed: 11/27/22 01:37> Discharge Plan Discharge Clinical Impression: Degenerative disc disease, thoracic <TINY Hilton - Last Filed: 11/26/22 18:45> Patient Disposition: Home, Self-Care <TINY Hilton - Last Filed: 11/26/22 18:45> Instructions: Degenerative Disc Disease (ED) <TINY Hilton - Last Filed: 11/26/22 18:45> Additional Instructions: Your CT scan was reassuring and did not show any significant abnormalities. The x-ray of her chest was clear The x-ray of your back show degenerative disc disease which is likely the cause of all of the pain you are experiencing. You may take naproxen as needed for pain. You may also take methocarbamol for muscle spasms Your urine sample did not show any evidence of UTI Your blood work did not have any significant abnormalities <TINY Hilton - Last Filed: 11/26/22 18:45> Prescriptions: New naproxen 500 mg tablet 500 mg PO BID PRN (Reason: pain) Qty: 20 0RF methocarbamol 500 mg tablet 500 mg PO TID PRN (Reason: muscle spasm) Qty: 20 0RF No Action oxycodone 5 mg tablet 5 mg PO Q6H PRN (Reason: pain) Qty: 10 0RF Rx Instructions: Partial Fill upon patient request. <TINY Hilton - Last Filed: 11/26/22 18:45>
[2022-11-26 19:11] VITALS: BP 96/56; PULSE 76; RESP 18; TEMP 35.9; O2SAT 98; BMI 35.9
[2022-11-26 19:29] LABS: MANUAL DIFF FLAG NO
[2022-11-26 19:41] LABS: Basophils Percent Auto 0.1 % (0-2); COVID-19 Test Negative (Negative); Eosinophils Absolute Auto 0.3 X10*3/uL (0.0-0.4); Eosinophils Percent Auto 2.9 % (0-4); Hematocrit 42.8 % (42.0-52.0); Hemoglobin 14.5 g/dl (14.0-18.0); IDNOW Serial# BCCEAD1C; Imm Gran Abs Auto 0.06 X10*3/uL (0.00-0.03); Imm Gran Pct Auto 0.6 % (0.0-0.4); Lymphocytes Absolute Auto 1.5 X10*3/uL (1.2-4.9); Lymphocytes Percent Auto 15.6 % (20-40); Mean Corpuscular HGB Conc 33.9 g/dl (31.0-36.0); Mean Corpuscular Hemoglobin 29.9 pg (27.0-33.0); Mean Corpuscular Volume 88.2 fL (80.0-98.0); Mean Platelet Volume 10.5 fL (9.4-12.4); Monocytes Absolute Auto 0.8 X10*3/uL (0.1-1.2); Monocytes Percent Auto 7.9 % (2-11); Neutrophils Absolute Auto 7.2 x10*3/uL (2.0-8.3); Neutrophils Percent Auto 72.9 % (45-73); Platelet Count 227 X10*3/uL (160-400); Red Blood Count 4.85 X10*6/uL (4.60-5.80); Red Cell Distribution Width 12.8 % (11.0-16.0); White Blood Count 9.9 X10*3/uL (4.8-10.8)
[2022-11-26 19:53] LABS: Alanine Aminotransferase 20 U/L (0-40); Albumin Level 4.4 g/dL (3.5-5.0); Alkaline Phosphatase 68 U/L (39-117); Anion Gap 13 (12-20); Aspartate Amino Transferase 17 U/L (5-37); Bilirubin Total 0.7 mg/dL (0.0-1.0); Blood Urea Nitrogen 23 mg/dL (9-16); Calcium 9.2 mg/dL (8.4-10.2); Carbon Dioxide 22 mmol/L (22-29); Chloride 109 mmol/L (96-108); Estimated Glomerular Filt Rate > 60; Glucose Random 100 mg/dL (60-115); Lipase 27 U/L (8-78); Magnesium 1.9 mg/dL (1.6-2.6); Potassium 4.4 mmol/L (3.3-5.1); Sodium 140 mmol/L (135-145); Total Protein 6.9 g/dL (6.5-8.0)
[2022-11-26 22:25] VITALS: BP 120/49; PULSE 64; O2SAT 100
[2022-11-26] MEDS: Ketorolac Tromethamine 30 MG/ML VIAL IM (23:00)
--- NOTE | 2022-11-26 23:00 | PC.NURSE ---
Pt medicated per MAR.
--- NOTE | 2022-11-27 00:18 | PC.NURSE ---
Pt ambulatory to restroom. UA collected and sent to lab.
[2022-11-27 00:24] LABS: Appearance Urine Clear; Color Urine Yellow; Glucose Urine UA Negative (Negative); Leukocyte Esterase Urine Negative (Negative); Nitrite Urine Negative (Negative); PH 5.5 (5.0-9.0); Specific Gravity - Urine 1.025 (1.005-1.025); Urine Blood Negative (Negative); Urine Ketones Trace mg/dL (Negative); Urine Protein Negative (Neg-Trace)
--- NOTE | 2022-11-27 00:40 | PC.NURSE ---
Pt and visitor requesting for RN to order [employer] pizza for them. Pt advised that they are are to be discharged soon and voices understanding.
[2022-11-27 01:00] VITALS: BP 113/70; PULSE 70; RESP 16; TEMP 36.6; O2SAT 98
--- NOTE | 2022-11-27 01:03 | PC.NURSE ---
Went in to provide d/c papers to pt. Pt and visitor requesting free cab ride home. Advised that there are typically no free cab rides home. Pt requesting to speak with battery charger tester and provider.
== END 2022-11-27 05:00 | disposition home or self-care (01) ==
PROVIDERS: Physician Assistant; Emergency Provider Emergency Medicine
DX: M51.34 Other intervertebral disc degeneration, thoracic region (principal); R10.30 Lower abdominal pain, unspecified; Z20.822 Contact with and (suspected) exposure to COVID-19; I10 Essential (primary) hypertension; F64.0 Transsexualism
CPT/HCPCS: 71045; 72070; 74176; 80053; 81003; 83690; 83735; 85025; 87635; 96372; 99284; J1885

== ENCOUNTER 2022-12-10 17:25 | Emergency (ER) | payer MEDICARE, MEDICAID, SELFPAY ==
--- NOTE | 2022-12-10 17:32 | ECG_ITS ---
Test Reason : abnormal EKG Blood Pressure : / mmHG Vent. Rate : 047 BPM Atrial Rate : 047 BPM P-R Int : 168 ms QRS Dur : 082 ms QT Int : 468 ms P-R-T Axes : 118 147 161 degrees QTc Int : 414 ms Suspect limb lead reversal, interpretation assumes no reversal Sinus bradycardia Right axis deviation Nonspecific ST and T wave abnormality Abnormal ECG When compared with ECG of 16-AUG-2022 12:07, QRS axis Shifted right ST no longer elevated in Lateral leads Referred By: Lou Salinas Electronically Signed By:
--- NOTE | 2022-12-10 17:44 | ED_ITS ---
HPI - General Adult General Chief complaint: Recheck/Abnormal Lab/Rx Stated complaint: Abnormal EKG Time Seen by Provider: 12/10/22 18:21 Source: patient and old records reviewed Mode of arrival: ambulatory Limitations: no limitations History of Present Illness HPI narrative: 62-year-old transgender male to female who presents to the ER for evaluation of sinus bradycardia seen on EKG today at the [facility]. Per provider at the [facility] they had no prior EKGs to compare. Patient was th ere for a visit for all over body pain which is chronic. Chronic pain issues were addressed with change in muscle relaxer and referral to pain management. Patient was sent here for abnormal EKG. patient has no new complaints MD complaint: Bradycardia on EKG Onset (ago): unknown Relieving factors: none Exacerbating factors: none Associated symptoms: denies other symptoms Treatments prior to arrival: none Related Data Previous Rx's Medication Instructions Recorded oxycodone 5 mg tablet 5 mg PO Q6H PRN pain #10 tabs 08/16/22 methocarbamol 500 mg tablet 500 mg PO TID PRN muscle spasm #20 11/27/22 tabs naproxen 500 mg tablet 500 mg PO BID PRN pain #20 tabs 11/27/22 Allergies Allergy/AdvReac Type Severity Reaction Status Date / Time No Known Allergies Allergy Unverified 09/12/22 11:08 [No Known Allergies*] Review of Systems Review of Systems: Yes all other systems are reviewed and are negative FORMERLY [facility], [facility] Past Medical History Medical History (Updated 12/10/22 @ 18:21 by TINY Hicks) Depression Hypertension Surgical History (Updated 09/12/22 @ 11:09 by GERMAIN Gill) Hx of neck surgery Social History Social History (Updated 09/12/22 @ 11:10 by GERMAIN Gill) Patient Tobacco Use Status: Never used Tobacco Advance Directives: No Advance Directives Information Provided: No Current occupational status: disabled Current occupation: right handed Physical Exam ED Vital Signs: Vital Signs - 24 hr 12/10/22 17:45 Temperature 96.6 F L Pulse Rate 54 Respiratory Rate 18 Blood Pressure 99/54 L Pulse Oximetry 96 Oxygen Delivery Method Room Air BMI result Body Mass Index 27.7 Appearance: Alert. Oriented X3. No acute distress. HEENT: normal inspection CVS: bradycardic, regular rhythm. Pulses normal. Respiratory: No respiratory distress. Skin: Skin warm and dry. Normal skin color. Normal skin turgor. No rashes. Extremities: normal inspection x4 Neuro: Oriented X 3. Deaf, at patient's baseline, steady gait Course Course Course Narrative: RME - 62-year-old transgender male to female with history of chronic pain presents to the ER from the [facility] for evaluation of sinus bradycardia. She initially went to there for evaluation of chronic pain issues. Per provider at [facility] they had addressed the pain issues, changing the muscle relaxer, prescribing medications and referring to pain management. Patient was found to have an EKG today showing sinus bradycardia. They were unable to compare today's EKG to an old one. Sent to the ER for abnormal EKG. Plan: Patient has a history of sinus bradycardia with heart rate baseline in the 50s. Some slightly peaked T-waves on EKG so will check basic lab workup to rule out hyperkalemia. Medical Decision Making Medical Decision Making [facility] Narrative: 62-year-old transgender male to female presenting to the ER for evaluation of abnormal EKG. Upon review it appears that this patient has chronic sinus bradycardia with baseline heart rates in the low 50s. Patient's heart rate today was found to be 54, EKG unchanged from prior. Patient is at their baseline. Labs are stable. There is stable for discharge home with outpatient follow-up. Differential Diagnosis Differential Diagnoses: The differential diagnosis associated with the presentation includes sinus bradycardia, first-degree AV block, second-degree AV block, complete heart block, hyperkalemia Lab Data MDM Lab Attestation statement: I reviewed the patient's lab results. 12/10/22 17:51 12/10/22 17:51 Labs: Lab Results 12/10/22 12/10/22 12/10/22 Range/Units 17:51 17:51 17:51 WBC 8.9 (4.8-10.8) X10*3/uL RBC 4.54 L (4.60-5.80) X10*6/uL Hgb 13.9 L (14.0-18.0) g/dl Hct 40.2 L (42.0-52.0) % MCV 88.5 (80.0-98.0) fL MCH 30.6 (27.0-33.0) pg MCHC 34.6 (31.0-36.0) g/dl RDW 12.8 (11.0-16.0) % Plt Count 186 (160-400) X10*3/uL MPV 10.2 (9.4-12.4) fL Immature Gran % (Auto) 1.2 H (0.0-0.4) % Neut % (Auto) 69.6 (45-73) % Lymph % (Auto) 18.1 L (20-40) % Gladwin % (Auto) 8.0 (2-11) % Eos % (Auto) 3.0 (0-4) % Baso % (Auto) 0.1 (0-2) % Lymph # (Auto) 1.6 (1.2-4.9) X10*3/uL Gladwin # (Auto) 0.7 (0.1-1.2) X10*3/uL Eos # (Auto) 0.3 (0.0-0.4) X10*3/uL Baso # (Auto) 0.0 (0.0-0.2) X10*3/uL Abs Immat Gran (auto) 0.11 H (0.00-0.03) X10*3/uL Absolute Neuts (auto) 6.2 (2.0-8.3) x10*3/uL Absolute Nucleated RBC 0.000 (0.0-0.012) X10*3/uL Nucleated RBC % (auto) 0.0 (0.0-0.2) /100WBC Sodium 142 (135-145) mmol/L Potassium 4.4 (3.3-5.1) mmol/L Chloride 109 H (96-108) mmol/L Carbon Dioxide 27 (22-29) mmol/L Anion Gap 10 L (12-20) BUN 18 H (9-16) mg/dL Creatinine 0.84 (0.5-1.4) mg/dL Estim Creat Clear Calc 93.0 Estimated GFR > 60 Random Glucose 89 (60-115) mg/dL Calcium 9.6 (8.4-10.2) mg/dL Magnesium 2.0 (1.6-2.6) mg/dL Total Bilirubin 0.9 (0.0-1.0) mg/dL Direct Bilirubin 0.2 (0.0-0.5) mg/dL AST 17 (5-37) U/L ALT 21 (0-40) U/L Alkaline Phosphatase 67 (39-117) U/L Troponin I High Sens 3.0 (<3.5-35.0) ng/L B-Natriuretic Peptide (<100) pg/mL Total Protein 6.9 (6.5-8.0) g/dL Albumin 4.3 (3.5-5.0) g/dL 12/10/22 Range/Units 17:51 WBC (4.8-10.8) X10*3/uL RBC (4.60-5.80) X10*6/uL Hgb (14.0-18.0) g/dl Hct (42.0-52.0) % MCV (80.0-98.0) fL MCH (27.0-33.0) pg MCHC (31.0-36.0) g/dl RDW (11.0-16.0) % Plt Count (160-400) X10*3/uL MPV (9.4-12.4) fL Immature Gran % (Auto) (0.0-0.4) % Neut % (Auto) (45-73) % Lymph % (Auto) (20-40) % Gladwin % (Auto) (2-11) % Eos % (Auto) (0-4) % Baso % (Auto) (0-2) % Lymph # (Auto) (1.2-4.9) X10*3/uL Gladwin # (Auto) (0.1-1.2) X10*3/uL Eos # (Auto) (0.0-0.4) X10*3/uL Baso # (Auto) (0.0-0.2) X10*3/uL Abs Immat Gran (auto) (0.00-0.03) X10*3/uL Absolute Neuts (auto) (2.0-8.3) x10*3/uL Absolute Nucleated RBC (0.0-0.012) X10*3/uL Nucleated RBC % (auto) (0.0-0.2) /100WBC Sodium (135-145) mmol/L Potassium (3.3-5.1) mmol/L Chloride (96-108) mmol/L Carbon Dioxide (22-29) mmol/L Anion Gap (12-20) BUN (9-16) mg/dL Creatinine (0.5-1.4) mg/dL Estim Creat Clear Calc Estimated GFR Random Glucose (60-115) mg/dL Calcium (8.4-10.2) mg/dL Magnesium (1.6-2.6) mg/dL Total Bilirubin (0.0-1.0) mg/dL Direct Bilirubin (0.0-0.5) mg/dL AST (5-37) U/L ALT (0-40) U/L Alkaline Phosphatase (39-117) U/L Troponin I High Sens (<3.5-35.0) ng/L B-Natriuretic Peptide 75 (<100) pg/mL Total Protein (6.5-8.0) g/dL Albumin (3.5-5.0) g/dL Independent Interpretation I performed an independent interpretation of an: EKG Interpretation: EKG with sinus bradycardia, ventricular rate 54 beats per minute, normal [place] interval, 166 ms, normal QTc, no ST segment elevations or depressions Independent Historian Clinical information obtained from an independent historian. History obtained from or confirmed by: Friend External Record Review External record reviewed: Office record, Outpatient record and Prior outpatient labs Chronic Conditions Patient?s care impacted by: Other (chronic pain syndrome) Critical Care Time Critical Care Time Critical Care Time: No Discharge Plan Discharge Clinical Impression: Bradycardia, sinus Patient Disposition: Home, Self-Care Instructions: Bradycardia (ED) Additional Instructions: Your EKG today was unchanged from your previous EKGs. Your lab work was stable. Follow-up with your doctor. Prescriptions: No Action oxycodone 5 mg tablet 5 mg PO Q6H PRN (Reason: pain) Qty: 10 0RF Rx Instructions: Partial Fill upon patient request. naproxen 500 mg tablet 500 mg PO BID PRN (Reason: pain) Qty: 20 0RF methocarbamol 500 mg tablet 500 mg PO TID PRN (Reason: muscle spasm) Qty: 20 0RF
[2022-12-10 17:45] VITALS: BP 99/54; PULSE 54; RESP 18; TEMP 35.9; O2SAT 96; BMI 27.7
[2022-12-10 17:56] LABS: MANUAL DIFF FLAG NO
[2022-12-10 18:11] LABS: Basophils Percent Auto 0.1 % (0-2); Eosinophils Absolute Auto 0.3 X10*3/uL (0.0-0.4); Hematocrit 40.2 % (42.0-52.0); Hemoglobin 13.9 g/dl (14.0-18.0); Imm Gran Abs Auto 0.11 X10*3/uL (0.00-0.03); Imm Gran Pct Auto 1.2 % (0.0-0.4); Lymphocytes Absolute Auto 1.6 X10*3/uL (1.2-4.9); Lymphocytes Percent Auto 18.1 % (20-40); Mean Corpuscular HGB Conc 34.6 g/dl (31.0-36.0); Mean Corpuscular Hemoglobin 30.6 pg (27.0-33.0); Mean Corpuscular Volume 88.5 fL (80.0-98.0); Mean Platelet Volume 10.2 fL (9.4-12.4); Monocytes Absolute Auto 0.7 X10*3/uL (0.1-1.2); Neutrophils Absolute Auto 6.2 x10*3/uL (2.0-8.3); Neutrophils Percent Auto 69.6 % (45-73); Platelet Count 186 X10*3/uL (160-400); Red Blood Count 4.54 X10*6/uL (4.60-5.80); Red Cell Distribution Width 12.8 % (11.0-16.0); White Blood Count 8.9 X10*3/uL (4.8-10.8)
[2022-12-10 18:15] LABS: Alanine Aminotransferase 21 U/L (0-40); Albumin Level 4.3 g/dL (3.5-5.0); Alkaline Phosphatase 67 U/L (39-117); Anion Gap 10 (12-20); Aspartate Amino Transferase 17 U/L (5-37); Bilirubin Direct 0.2 mg/dL (0.0-0.5); Bilirubin Total 0.9 mg/dL (0.0-1.0); Blood Urea Nitrogen 18 mg/dL (9-16); Calcium 9.6 mg/dL (8.4-10.2); Carbon Dioxide 27 mmol/L (22-29); Chloride 109 mmol/L (96-108); Estimated Glomerular Filt Rate > 60; Glucose Random 89 mg/dL (60-115); Potassium 4.4 mmol/L (3.3-5.1); Sodium 142 mmol/L (135-145); Total Protein 6.9 g/dL (6.5-8.0)
[2022-12-10 18:21] LABS: B Type Natriuretic Peptide 75 pg/mL (<100)
== END 2022-12-10 18:32 | disposition home or self-care (01) ==
PROVIDERS: Physician Assistant; Emergency Provider Emergency Medicine Emergency Medical Services
DX: R00.1 Bradycardia, unspecified (principal); R06.02 Shortness of breath; Z79.899 Other long term (current) drug therapy
CPT/HCPCS: 36415; 80048; 80076; 83735; 83880; 84484; 85025; 93005; 99283

== ENCOUNTER 2023-02-18 14:50 | Outpatient (REF) | payer MEDICARE, MEDICAID, SELFPAY ==
--- NOTE | 2023-02-19 09:48 | MHC.AU.AH1 ---
Adult Audiological Evaluation Date of Visit: 02/18/23 Foreign Food Cook Specialty Used: Video FABY Ramirez #[id number] Reason for Appointment: Would like hearing aids. Ear History: Ear Deformity: thickened pinnas Recent Ear Drainage: None Reported Recent Ear Pain: None Reported Family History of Hearing Loss?: Yes Recent Ear Infections: None Reported Ear Infections in Childhood: None Reported History of Ear Wax Buildup: None Reported Previous Ear Surgery: None Reported Bothersome Tinnitus/Ringing/Noises in Ears: None Reported Ear used on the phone: None Reported Blocked/Full Sensation in Ear(s): None Reported History of occupational noise exposure?: No History: No Medical History: Medical History: None revealed Medication List: See chart Hearing Instrument History None currently in use: very old and broken. Hasn't worn hearing aids in many years Otoscopy: Right Ear: Unremarkable Left Ear: Unremarkable Tympanometry: Did not test Hearing Evaluation: Transducer(s) Used: Insert Earphones Right Ear: Description of Hearing: Profound sensorineural hearing loss Left Ear: Description of Hearing: Profound sensorineural hearing loss Interpretation of Results: Hearing levels, even with amplification, will yeild limited benefit. Patient may still not be able to hear things such as a knock on the door or the video phone alert. Discussed with patient that they would likely benefit more with at least pairing a trial of hearing aids with alerting devices such as a door knocker, phone alert flash, etc. Patient had transportation issues and arrived 1.75 hours past scheduled appointment. Limited time was available. Obtained thresholds. Discussed impressions. Patient will need to return to clinic for ear mold impressions, obtain medical clearance from physician, and then we can order hearing aid for trial. Recommendations: Medical clearance from a physician is required before fitting. Obtain a transportation waiver from PCP to allow for reliable scheduled transportation to next appointment Signature: Provider: Vanesa Glass, FAAA
== END 2023-02-18 14:51 | disposition home or self-care (01) ==
LOC: HO.SH 14:50
PROVIDERS: Visit Provider Family Medicine
DX: Z01.118 Encounter for examination of ears and hearing with other abnormal findings (principal); H90.3 Sensorineural hearing loss, bilateral
CPT/HCPCS: 92552

== ENCOUNTER 2023-03-06 16:02 | Outpatient (REF) | payer MEDICARE, MEDICAID, SELFPAY ==
--- NOTE | 2023-03-07 12:20 | MHC.AU.HA1 ---
Hearing Aid Evaluation Date of Visit: 03/06/23 Historical Information: Description of Hearing: Profound hearing loss, right ear worse than left ear Summary: Jacob is a previous hearing aid user; however, he has reportedly not worn hearing aids in several years as he lost them. He uses ASL to communicate; however, he is ready to pursue new hearing aids to help with environmental awareness. Jacob is aware of the limitations of hearing aids and realizes they may yield limited benefit due to the severity of his hearing loss. Hearing Aid Prescription: Based on the individual?s shared listening needs, communication environments, dexterity, desire for connectivity, and personal preferences, the following prescription for amplification has been made: Right ear: Make, Model, Color: Phonak Wanda 70-UP Color: Champagne Battery Size: 675 Type of Earmold/Dome/CShell/SlimTip: Microsonic M2000 full shell no vent Left ear: Left ear prescription to be same as Right Hearing Aid above: Make, Model, Color: Phonak Wanda 70-UP Color: Champagne Battery Size: 675 Type of Earmold/Dome/CShell/SlimTip: Microsonic M2000 full shell no vent Plan of Care: Patient wishes to purchase hearing aids as prescribed Action Taken/Action Needed: Earmold Impressions Taken (in hold drawer); Medical Clearance to be requested from PCP/ENT; Hearing Instrument Fitting to be scheduled when materials arrive Primary Diagnosis: H90.3 Bilateral Sensorineural Hearing Loss Signature: Provider: Vanesa Barr, [facility]
--- NOTE | 2023-03-07 12:21 | MHC.AU.MED ---
Medical Clearance for Hearing Instrumentation Date: 03/07/23 Patient Name: Jacob Angeles Date of : 1960 Primary Care Provider: Ligia Becerra MD We have seen your patient on 03/06/23 and have determined that they are a candidate for amplification (See accompanying report). Specifically, they would benefit from: Hearing aid use in both ears There is a statute that addresses Medical Evaluation Requirements prior to fitting a patient with a hearing aid. According to [place] statute 265 CMR:6.03(1), (a) General. Except as provided in 265 CMR 6.03(1)(b), a ob/gyn doctor shall not sell a hearing aid unless the prospective user has presented to the ob/gyn doctor a written statement signed by a licensed physician that states that the patient's hearing loss has been medically evaluated and the patient may be considered a candidate for a hearing aid. The medical evaluation must have taken place within the preceding six months. Please note: Due to the [place] Statute referenced above, we cannot accept a signature other than that of a licensed physician. CERTIFIED PROFESSIONAL CONTROLLER and PA signatures cannot be accepted. I am in agreement with the above recommendation. There is no medical contraindication for hearing instrumentation. Physician Signature Date Physician Name (Printed)
== END 2023-03-06 16:03 | disposition home or self-care (01) ==
LOC: HO.HAP 16:02
PROVIDERS: Visit Provider Family Medicine
DX: Z46.1 Encounter for fitting and adjustment of hearing aid (principal); H90.3 Sensorineural hearing loss, bilateral
CPT/HCPCS: 92591; V5275

== ENCOUNTER → 2023-03-26 11:15 | Outpatient (BNVA) | payer MEDICARE, MEDICAID, SELFPAY | PROVIDERS: Visit Provider Anesthesiology ==

== ENCOUNTER → 2023-04-17 10:56 | Outpatient (BNVA) | payer MEDICARE, MEDICAID, SELFPAY | PROVIDERS: PCP Family Medicine; Visit Provider Nurse Practitioner Family ==

== ENCOUNTER 2023-04-17 10:57 | Outpatient (AMB) | payer MEDICARE, MEDICAID, SELFPAY ==
--- OUTSIDE RECORDS SUMMARY | 2023-04-17 10:58 | XMS_ITS | Continuity of Care Document ---
Author Name Unknown Organization [facility] Address [address] [place] [address]- Care Team Providers Care Allergist/Immunologist Physician Name Role Phone Not on Staff, PCP Primary Care Physician Unavail able Encounter [facility] Date(s): 07/30/21 - 08/01/[address] [id number] Discharge Disposition: A-D/C Home Attending Physician: Jair Clifton MD, Glenn Silver Admitting Physician: Neha Méndez MD Referring Physician: Neha Méndez MD Allergies, Adverse Reactions, Alerts Substance Reaction Severity Status NKA Active Medications albuterol CFC free 90 mcg/inh inhalation aerosol 180 mcg, 2, puffs, Inhalation, Every 4 hours, PRN, # 8 Gm, Refills 0, Tot. Refills 0, Maintenance, 08/01/21 10:01:00 EST, Inhaler, Route to Pharmacy Electronically, [id number], [facility] Start Date: 08/01/21 Status: Ordered albuterol CFC free 90 mcg/inh inhalation aerosol 180 mcg, 2, puffs, Inhalation, Every 4 hours, PRN, # 8 Gm, Refills 0, Tot. Refills 0, Maintenance, 08/01/21 11:21:00 EST, Inhaler, Route to Pharmacy Electronically, [id number], [facility][id number] Start Date: 08/01/21 Status: Ordered albuterol CFC free 90 mcg/inh inhalation aerosol 180 mcg, 2, puffs, Inhalation, Every 4 hours, PRN, # 8 Gm, Refills 0, Tot. Refills 0, Maintenance, 08/01/21 11:22:00 EST, Inhaler, Route to Pharmacy Electronically, [id number], [facility]/pharmacy #[id number] Start Date: 08/01/21 Status: Ordered amLODIPine 5 mg oral tablet 5 mg, 1, tablet, By Mouth, Daily, # 30 tablet, Refills 0, Tot. Refills 0, Maintenance, 08/01/21 11:21:00 EST, Route to Pharmacy Electronically, [facility]/pharmacy #[id number], Partial fill upon patient request if the prescription is for a schedule II opioid drug. Start Date: 08/01/21 Status: Ordered amLODIPine 5 mg oral tablet 5 mg, Tablet, By Mouth, 08/01/21 9:00:00 EST Start Date: 08/01/21 Stop Date: 08/01/21 Status: Completed ARIPiprazole 2 mg oral tablet 2 mg, 1, tablet, By Mouth, Daily, # 30 tablet, Refills 0, Maintenance, 07/30/21 23:45:00 EST, Partial fill upon patient request if the prescription is for a schedule II opioid drug. Start Date: 07/30/21 Status: Ordered aspirin 81 mg oral delayed release tablet 81 mg, 1, tablet, By Mouth, Daily, # 30 tablet, Refills 0, Tot. Refills 0, Maintenance, 08/01/21 11:22:00 EST, Route to Pharmacy Electronically, [facility]/pharmacy #[id number], Partial fill upon patient request if the prescription is for a schedule II opioid drug. Start Date: 08/01/21 Status: Ordered duloxetine 30 mg oral enteric coated capsule 3 capsule = 90 mg, By Mouth, Daily, do not crush or chew, # 90 capsule, 0 Refills, Maintenance, 07/30/21 23:45:00 EST, CR Capsule, Partial fill upon patient request if the prescription is for a schedule II opioid drug. Start Date: 07/30/21 Status: Ordered guaiFENesin 100 mg/5 mL oral liquid 10 mL = 200 mg, By Mouth, Every 4 hours, PRN for cough, for 7 days, # 240 mL, 0 Refills, Acute 08/08/21 10:03:00 EST, 08/01/21 10:03:00 EST, Liquid, [facility], Partial fill upon patient request if the prescription is for a schedule II o... Start Date: 08/01/21 Stop Date: 08/08/21 Status: Ordered guaiFENesin 100 mg/5 mL oral liquid 10 mL = 200 mg, By Mouth, Every 4 hours, PRN for cough, for 7 days, # 240 mL, 0 Refills, Acute 08/15/21 10:03:00 EST, 08/08/21 10:03:00 EST, Liquid, [id number], Partial fill upon patient request if the prescription is for a schedule II opioid... Start Date: 08/08/21 Stop Date: 08/15/21 Status: Ordered Lipitor 20 mg oral tablet 1 tablet = 20 mg, By Mouth, Daily at bedtime, # 30 tablet, 0 Refills, Maintenance, 08/01/21 11:22:00 EST, Tablet, [id number], Partial fill upon patient request if the prescription is for a schedule II opioid drug. Start Date: 08/01/21 Status: Ordered predniSONE 50 mg oral tablet 1 tablet = 50 mg, By Mouth, Daily, for 3 days, # 3 tablet, 0 Refills, Hard Stop 08/04/21 10:04:00 EST, 08/01/21 10:04:00 EST, Tablet, [facility], Partial fill upon patient request if the prescription is for a schedule II opioid drug. Start Date: 08/01/21 Stop Date: 08/04/21 Status: Ordered predniSONE 50 mg oral tablet 1 tablet = 50 mg, By Mouth, Daily, # 3 tablet, 0 Refills, Maintenance, 08/04/21 10:04:00 EST, Tablet, [id number], Partial fill upon patient request if the prescription is for a schedule II opioid drug. Start Date: 08/04/21 Stop Date: 08/07/21 Status: Ordered Protonix 40 mg oral delayed release tablet 1 tablet = 40 mg, By Mouth, Daily, # 30 tablet, 0 Refills, Maintenance, 07/30/21 23:40:00 EST, EC Tablet Start Date: 07/30/21 Status: Ordered Problem List Condition Effective Dates Status Health Status Inform ant Depression(Confirmed) Active GERD (gastroesophageal reflu x disease)(Confirmed) Active Deaf(Confirmed) Active Vital Signs Most recent to oldest [Reference Range]: 1 2 3 Weight 89 kg (07/31/21 12:44 AM) Oxygen Saturation [94-100 %] 98 % (08/01/21 10:00 AM) 98 % (08/01/21 8:26 AM) 95 % (08/01/21 5: AM) Pulse Rate [55-90 bpm] 72 bpm (08/01/21 10:00 AM) 72 bpm (08/01/21 8:26 AM) 60 bpm (08/01/21 5:27 AM) Blood Pressure [90-138/55-84 mm Hg] 135/75mm Hg (08/01/21 10:00 AM) 135/75mm Hg (08/01/21 9:08 AM) 135/75mm Hg (08/01/21 8:26 AM) Respiratory Rate [16-30 br/min] 18 br/min (08/01/21 10:00 AM) 18 br/min (08/01/21 8:26 AM) 18 br/min (08/01/21 5:27 AM) Temperature [96.8-100.4 DegF] 97.5 DegF (08/01/21 10:00 AM) 97.5 DegF (08/01/21 8:26 AM) 98 DegF (08/01/21 5:27 AM) Mode of Delivery (Oxygen) Room air (08/01/21 10:00 AM) Room air (08/01/21 8:26 AM) Room air (08/01/21 5:27 AM) Blood pressure sites Arm, left (08/01/21 10:00 AM) Arm, left (08/01/21 8:26 AM) Arm, left (08/01/21 5:27 AM) Temperature Route Oral (08/01/21 10:00 AM) Oral (08/01/21 8:26 AM) Oral (08/01/21 5:27 AM)
--- NOTE | 2023-04-17 11:01 | A.OFFVIS_ITS ---
Intake Vital Signs 04/17/23 11:13 Height 5 ft 8 in Weight 190 lb 3 oz BMI 28.9 BP 118/60 Blood Pressure Location Rt brachial Position Sitting Pulse 72 Pulse Source Pulse Oximeter Pulse Oximetry (%) 98 Oxygen Delivery Method Room Air Intake Visit Reasons: LOW BACK PAIN Marketing Program Manager Required: Yes Marketing Program Manager Language: Childhood Development Teacher Name: Sammi #[id number] Accompanied by: Unknown Allergies No Known Allergies [No Known Allergies*] Allergy (Verified 04/17/23 11:13) HPI LOW BACK PAIN HPI Details Patient is a 63 year-old transgender male to female who presents today for initial evaluation of mid to lower back pain that has been progressively getting worse. Past medical history is noted for gender dysphoria, deafness, BPH s/p TURP, HTN, chronic abdominal pain, depression, chronic thoracic pain, anxiety, personality disorder, GERD, and asthma. Patient's mid to low back pain is axial with intermittent radiation to lower extremities but easily exacerbated by any movement, flexion, bending, extension or changing position. Denies any recent or past trauma, injury or falls. Patient reports over the counter medications has not been helpful. Patient denies previous physical therapy and requests to be send to physical therapy. Pain has been affecting patient's daily activities, functioning, mood, sleep, and quality of life. Patient reports he is unable to sleep through the night due to burning and spasming in his back. Most recent imaging is noted for multilevel spondylosis and degenerative changes of the spine and hip joints. Patient declines interventional treatments such as injections to alleviate his pain and requests medication. I have informed patient that our office does not offer opioid prescribing. We will proceed with PT and gabapentin at bedtime. Denies any fever, weight loss, weakness, bladder or bowel dysfunction or saddle anesthesia. Location Lower back radiates down bilateral legs Duration Chronic back pain, worsening over the past one year Characteristics of symptom or complaint Aching, spasming, shooting, hot, burning, tiring Aggravating or associated factors Movements, walking, any activity, weather changes Relieving factors Minimal relief with Ibuprofen, oxycodone, tizanidine Treatment None PFSH Medical History Hypertension Depression Surgical History Hx of neck surgery Social History Patient Tobacco Use Status: Never used Tobacco Current occupational status: disabled Current occupation: right handed Review of Systems Const All systems reviewed & are unremarkable except as noted in HPI and below Physical Exam Vital Signs: Last Vital Signs Pulse 72 04/17/23 11:13 BP 118/60 04/17/23 11:13 Pulse Ox 98 04/17/23 11:13 Oxygen Delivery Method Room Air 04/17/23 11:13 BMI result Body Mass Index 28.9 General: Appears afebrile. Alert and oriented. Mood and affect appropriate. Follows and participates in conversation appropriately. Respiratory effort is unlabored. Able to transition from sit to stand unassisted. Ambulates with cane. Back/Spine/Pelvis Other: Antalgic gait with mild limping. Can flex forward to 60-70 degrees and extend to 5-10 degrees before experiencing lumbar pain. Demonstrates 4/5 strength of quadriceps bilaterally as well as flexion/dorsiflexion of bilateral feet against resistance. 2+ pedal pulses bilaterally. Seated straight leg rise with dorsiflexion negative bilaterally. +1 patellar and achilles reflexes bilaterally. Facet loading test positive bilaterally. Rm sign, Kane?s, and Stinchfield tests are positive bilaterally. No groin pain with I/E hip rotations. Cervical Spine: cervical ROM normal and No Cervical spine tenderness Thoracic/Lumbar Spine: thoracic and lumbar spine normal to inspection, No Th oracic/lumbar spine scar(s), Lasegue's sign negative, straight leg raise negative bilaterally, pain with thoraco-lumbar ROM, paraspinal muscle tenderness, thoraco-lumbar ROM limited, No thoracic spinal tenderness and lumbar spinal tenderness at L4 and at L5 Pelvis: buttock tenderness bilaterally Sacroiliac joints: bilaterally tender to palpation Results Reviewed Results Reviewed: Chest and thoracic spine x-ray 11/26/22 CLINICAL INFORMATION: Pain COMPARISON: Previous chest x-ray November 2016 TECHNIQUE: One view of the chest. 3 views of the thoracic spine. FINDINGS: Chest: The cardiac and mediastinal contours are normal. The lungs are clear. No pleural effusion or pneumothorax. Degenerative changes of the thoracic spine. Thoracic spine: Bone alignment is normal. No fracture or dislocation. There is multilevel degenerative disc disease and spondylosis. Paraspinal soft tissues are normal. Swimmer's view demonstrates postlaminectomy changes from C3 to C6. IMPRESSION: Chest x-ray: Unremarkable examination. Thoracic spine x-ray: Multilevel degenerative disc disease and spondylosis. XR/XR chest 1V 11/26/22 IMPRESSION: Chest x-ray: Unremarkable examination. Thoracic spine x-ray: Multilevel degenerative disc disease and spondylosis. CT/CT abdomen pelvis wo IV con 11/26/22 OSSEOUS STRUCTURES: Degenerative changes of the spine and hip joints. Assessment & Plan Assessment & Plan (1) Lumbar radiculitis: Code(s): M54.16 - Radiculopathy, lumbar region (2) Lumbar spondylosis: Code(s): M47.816 - Spondylosis without myelopathy or radiculopathy, lumbar region (3) Lumbar degenerative disc disease: Code(s): M51.36 - Other intervertebral disc degeneration, lumbar region (4) Muscle spasm of back: Code(s): M62.830 - Muscle spasm of back Plan 1. Lumbar spine imaging to assess degree of degenerative changes, any subluxation, listhesis or pars defects. 2. Recommend formal physical therapy for chronic mid to low back pain with radicular pain and muscle spasms/stiffness. Script provided today for PT and gabapentin at bedtime. Side effects and precautions were reviewed with patient. 3. Follow-up in 2-3 months to see response to physical therapy, if no response to physical therapy will consider further interventional strategy. Orders: Orders PT Evaluation and Treatment 04/17/23 M47.816 - Spondylosis without myelopathy or radiculopathy, lumbar region, M51.36 - Other intervertebral disc degeneration, lumbar region, M54.16 - Radiculopathy, lumbar region XR lumbar spine 4V min 04/17/23 M47.816 - Spondylosis without myelopathy or radiculopathy, lumbar region, M51.36 - Other intervertebral disc degeneration, lumbar region, M54.16 - Radiculopathy, lumbar region Medications: New gabapentin 300 mg PO BEDTIME 30 days 30 caps 0RF pain M47.816 - Spondylosis without myelopathy or radiculopathy, lumbar region, M51.36 - Other intervertebral disc degeneration, lumbar region, M54.16 - Radiculopathy, lumbar region Coding Level of Care Code New Pt Level 4 (52291) Diagnoses Lumbar radiculitis M54.16 Lumbar spondylosis M47.816 Lumbar degenerative disc disease M51.36 Muscle spasm of back M62.830
[2023-04-17 11:13] VITALS: BP 118/60; PULSE 72; O2SAT 98; BMI 28.9
== END 2023-04-17 11:52 | disposition home or self-care (01) ==
PROVIDERS: PCP Family Medicine; Visit Provider Nurse Practitioner Family
DX: M54.16 Radiculopathy, lumbar region (principal); M47.816 Spondylosis without myelopathy or radiculopathy, lumbar region; M51.36 Other intervertebral disc degeneration, lumbar region; M62.830 Muscle spasm of back
CPT/HCPCS: 99204

== ENCOUNTER 2023-04-30 10:00 | Outpatient (AMB) | payer MEDICARE, MEDICAID, SELFPAY ==
--- NOTE | 2023-04-30 10:19 | MHC.OFFVIS ---
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 Patient does not have any clear symptoms. Repeatedly questioned patient regarding anginal-type symptoms or shortness of breath or in fact anything cardiac sounding but denying all symptoms. No previous cardiac history per patient. Use interior design professor for the same. PFSH Medical History Hypertension Depression Surgical History Hx of neck surgery Social History Patient Tobacco Use Status: Never used Tobacco Current occupational status: disabled Current occupation: right handed Review of Systems Const Denies chills, Denies daytime sleepiness, Denies fatigue, Denies fever(s), Denies frequent falls, Denies poor appetite, Denies snoring, Denies stops breathing during sleep, Denies weakness, Denies weight gain and Denies weight loss Eyes Denies loss of vision ENT Denies dizziness and Denies hearing loss Card Denies chest pain, Denies claudication, Denies leg edema, Denies lightheadedness, Denies palpitations, Denies dyspnea, Denies dyspnea on exertion and Denies orthopnea Resp Denies cough, Denies excessive phlegm production, Denies dyspnea, Denies dyspnea on exertion, Denies snoring and Denies wheezing GI Denies abdominal pain, Denies hematochezia, Denies change in bowel habits, Denies nausea and Denies vomiting Denies dysuria and Denies urinary frequency Musc Denies arthralgias, Denies muscle weakness, Denies numbness and Denies other (frequent falls) Skin/Breast Denies nail changes and Denies rash Neuro Denies Abnormal speech present, Denies dizziness, Denies frequent falls, Denies loss of vision, Denies memory loss, Denies numbness and Denies weakness Psych Denies depression and Denies memory loss Endo Denies fatigue and Denies palpitations Luis/Lymph Reports easy bruising and Reports other (anemia) Aller/Immun Denies wheezing Physical Exam Vital Signs: Last Vital Signs Pulse 60 04/30/23 10:20 BP 110/70 04/30/23 10:20 BMI result Body Mass Index 28.5 Const General: comfortable and no acute distress Orientation/consciousness: patient oriented x3 HEENT Other: Unremarkable Head: Yes normal to inspection Neck Neck: Yes normal visual inspection Chest Chest palpation & inspection: normal inspection of the chest Resp Auscultation: clear to auscultation bilaterally Cardio Palpation: normal PMI Heart sounds: S1 normal heart sound present, S2 normal heart sound present, no gallops, no murmurs and no rubs GI Palpation (GI): Soft to palpation Back/Spine/Pelvis Other: unremarkable Skin General skin exam: no rashes or lesions noted Neuro General: patient oriented x3 Speech: No Abnormal speech present Extrem General: Yes normal to inspection Psych Mental Status: mental status grossly normal Assessment & Plan Assessment & Plan (1) Bradycardia, sinus: Code(s): R00.1 - Bradycardia, unspecified Plan In the EKG faxed from primary care office, difficult to read due to quality but ventricular rate seems to be about 46/Min. Going back as much as 2017, ventricular rate was than 55/Min. There are at least 4 EKGs since then and all of them have heart rates in the similar range. No evidence of any conduction system disease otherwise and normal QT. Clinically, patient has absolutely no symptoms. On exam, no concerning findings. Overall, reassurance only. If patient develops any symptoms concerning from cardiac, advised to contact us. Patient understands Coding Level of Care Code New Pt Level 3 (90079) Diagnoses Bradycardia, sinus R00.1
[2023-04-30 10:20] VITALS: BP 110/70; PULSE 60; BMI 28.5
== END 2023-04-30 12:55 | disposition home or self-care (01) ==
PROVIDERS: PCP Family Medicine; Referring Provider Emergency Medicine; Visit Provider Internal Medicine
DX: R00.1 Bradycardia, unspecified (principal)
CPT/HCPCS: 99203

== ENCOUNTER → 2023-04-30 10:00 | Outpatient (BNVA) | payer MEDICARE, MEDICAID, SELFPAY | PROVIDERS: PCP Family Medicine; Referring Provider Emergency Medicine; Visit Provider Internal Medicine ==

== ENCOUNTER 2023-05-15 11:05 | Outpatient (RCR) | payer MEDICARE, MEDICAID, SELFPAY ==
--- NOTE | 2023-06-18 14:54 | MHC.PT.DC ---
[facility] [place] Office [place] Office [place] Office [address] Anni Paul [address] [phone] F: [phone] F: [phone] F: [phone] F: [phone] Physical Therapy Discharge Report Diagnosis: INTERVERTEBRAL DISC DEGENERATION (KP) Date of Surgery: Date of Evaluation: 05/15/23 Date of Discharge: 06/18/23 Treatments to Date: 1 Cancellations to Date: 0 No Shows to Date: 0 Discharge Status: Patient Elected to Stop Visit Non-compliance Discharge Summary: ATTENDED EVAL ONLY AND NO SHOWED FOR OTHER SCHEDULE VISIT. HAS NOT RETURNED TO OUR OFFICE FOR > 30 DAYS AND WILL BE DCed AT THIS TIME. IF FURTHER VISITS ARE REQUIRED A NEW REFFERAL WILL BE NECESSARY. Electronically signed by: HIPOLITO BELL PT DPT Please sign and return to therapist. Thank you for your referral.
== END 2023-06-18 14:54 | disposition home or self-care (01) ==
LOC: HO.PT 11:05
PROVIDERS: PCP Family Medicine; Visit Provider Nurse Practitioner Family
DX: M51.36 Other intervertebral disc degeneration, lumbar region (principal); M47.816 Spondylosis without myelopathy or radiculopathy, lumbar region; M54.16 Radiculopathy, lumbar region
CPT/HCPCS: 97162

== ENCOUNTER 2023-05-27 13:32 | Outpatient (REF) | payer MEDICARE, MEDICAID, SELFPAY ==
--- NOTE | 2023-05-27 14:50 | MHC.AU.HA2 ---
Hearing Instrument Fitting- Adult- Binaural Date of Visit: 05/27/23 Hearing Instruments Dispensed: Right Ear: Make, Model, Color, Serial Number: Carla Calderonida 70-UP SN: [id number] Color: Champagne Inspector Purchased Parts Repair Warranty: 06/21/2026 Inspector Purchased Parts Loss and Damage Warranty: 06/21/2026 [facility] Service Plan: 05/27/2024 Battery Size: 675 Earmold/Dome/CShell/SlimTip: Microsonic M2000 full shell no vent Left Ear: Make, Model, Color, Serial Number: Carla Wanda 70-UP SN: [id number] Color: Champagne Inspector Purchased Parts Repair Warranty: 06/21/2026 Inspector Purchased Parts Loss and Damage Warranty: 06/21/2026 [facility] Service Plan: 05/27/2023 Battery Size: 675 Earmold/Dome/CShell/SlimTip: Microsonic M2000 full shell no vent Summary of Fitting: Jacob was over 30 minutes late to appointment. Could not run real ear measures due to time constraints. Ran feedback analyzer and Jacob reported noticeable improvement in hearing at first fit settings. He could hear voices as well as the video effects editor's cell phone that rang during the appointment. As a previous hearing aid user, Jacob was familiar with general maintenance. Reviewed changing battery, turning on/off, and volume control use. Jacob had some difficulty inserting the hearing aids due to his long nails; however, he seemed motivated to practice. Discussed the need for periodic tubing changes. Jacob did not feel a follow up appointment was necessary at this time. He will call if problems arise. Did not pair to cell phone. Recommendations: Hearing Instrument maintenance in 6 months, or sooner if needed. Please call our clinic with any questions or concerns. Diagnosis Code(s): Primary Diagnosis: H90.3 Bilateral Sensorineural Hearing Loss Signature: Provider: Vanesa Barr, [facility]
== END 2023-05-27 13:33 | disposition home or self-care (01) ==
LOC: HO.HAP 13:32
PROVIDERS: Visit Provider Family Medicine
DX: Z46.1 Encounter for fitting and adjustment of hearing aid (principal); H90.3 Sensorineural hearing loss, bilateral
CPT/HCPCS: V5011; V5160; V5261; V5264

== ENCOUNTER 2023-06-02 13:49 | Outpatient (AMB) | payer MEDICARE, MEDICAID, SELFPAY ==
--- NOTE | 2023-06-02 14:01 | MHC.OFFVIS ---
Intake Vital Signs 06/02/23 14:02 Height 5 ft 8 in Weight 190 lb BMI 28.9 BP 152/73 H Blood Pressure Location Rt brachial Position Sitting Pulse 53 Pulse Source Pulse Oximeter Pulse Oximetry (%) 98 Oxygen Delivery Method Room Air Intake Visit Reasons: Imaging Review (MRI's) Intake Note: Pain today 05/20 Flight Control Specialist Required: Yes Flight Control Specialist Language: Ground Operations Superintendent Name: Sheree #[id number] Allergies No Known Allergies [No Known Allergies*] Allergy (Verified 04/17/23 11:13) HPI HPI Comments History of Present Illness Details Patient presents today for follow up to assess response to physical therapy and review recent lumbar spine MRI completed at [facility] on 05/15/23. This has been ordered by a provider from [facility], patient is not sure a Neurosurgical consultation has been ordered. Cameroonian Sign Language utilized via iPad today. Patient reports completing 2 sessions of PT without any pain relief and aggravating of back and legs pain with any movement, walking, prolonged standing, bending, changing positions and cold weather changes. Patient reports mild symptom relief with sitting but unable to find comfortable sleeping position at night and has not been sleeping well for few weeks. I will put urgent referral to our [facility] for Neurosurgical evaluation. Denies any fever, bladder or bowel dysfunction or saddle anesthesia. Reports weakness in lower extremities. Patient is requesting a strong medication to help for sleep due to pain. MassPat review noted that Hydromorphine 2 mg #28 tabs were filled on 05/16/23 that was prescribed by a patient's provider from [facility]. Patient reports they have not filled or picked up medication yet and will stop by pharmacy today. PRIOR: Patient is a 63 year-old transgender male to female who presents today for initial evaluation of mid to lower back pain that has been progressively getting worse. Past medical history is noted for gender dysphoria, deafness, BPH s/p TURP, HTN, chronic abdominal pain, depression, chronic thoracic pain, anxiety, personality disorder, GERD, and asthma. Patient's mid to low back pain is axial with intermittent radiation to lower extremities but easily exacerbated by any movement, flexion, bending, extension or changing position. Denies any recent or past trauma, injury or falls. Patient reports over the counter medications has not been helpful. Patient denies previous physical therapy and requests to be send to physical therapy. Pain has been affecting patient's daily activities, functioning, mood, sleep, and quality of life. Patient reports he is unable to sleep through the night due to burning and spasming in his back. Most recent imaging is noted for multilevel spondylosis and degenerative changes of the spine and hip joints. Patient declines interventional treatments such as injections to alleviate his pain and requests medication. I have informed patient that our office does not offer opioid prescribing. We will proceed with PT and gabapentin at bedtime. Denies any fever, weight loss, weakness, bladder or bowel dysfunction or saddle anesthesia. Location Lower back radiates down bilateral legs Duration Chronic back pain, worsening over the past one year Characteristics of symptom or complaint Aching, spasming, shooting, hot, burning, tiring Aggravating or associated factors Movements, walking, any activity, weather changes Relieving factors Minimal relief with Ibuprofen, oxycodone, tizanidine Treatment None PFSH Medical History Hypertension Depression Surgical History Hx of neck surgery Social History Patient Tobacco Use Status: Never used Tobacco Current occupational status: disabled Current occupation: right handed Review of Systems Const All systems reviewed & are unremarkable except as noted in HPI and below Physical Exam Vital Signs: Last Vital Signs Pulse 53 06/02/23 14:02 BP 152/73 H 06/02/23 14:02 Pulse Ox 98 06/02/23 14:02 Oxygen Delivery Method Room Air 06/02/23 14:02 BMI result Body Mass Index 28.9 General: Appears afebrile. Alert and oriented. Mood and affect appropriate. Follows and participates in conversation appropriately. Respiratory effort is unlabored. Able to transition from sit to stand unassisted. Ambulates with cane. Back/Spine/Pelvis Other: Limited back exam due to significant pain. Lumbar flexion, bending and extension reproduce pain. Cervical Spine: cervical muscular tenderness and No Cervical spine tenderness Thoracic/Lumbar Spine: thoracic and lumbar spine normal to inspection, No Thoracic/lumbar spine scar(s), Lasegue's sign positive (right >left) bilateral, pain with thoraco-lumbar ROM, paraspinal muscle tenderness, thoraco-lumbar ROM limited, No thoracic spinal tenderness, lumbar spinal tenderness at L4 and at L5 and straight leg raise positive bilateral at 30 degrees Pelvis: buttock tenderness bilaterally Sacroiliac joints: bilaterally tender to palpation Neuro General: moves all extremities Gait exam (Neuro): Antalgic gait present and Assistive device used Motor exam (neuro): no tremor noted and Motor abnormalities not present Results Reviewed Results Reviewed: Assessment & Plan Assessment & Plan (1) Lumbar degenerative disc disease: Code(s): M51.36 - Other intervertebral disc degeneration, lumbar region (2) Muscle spasm of back: Code(s): M62.830 - Muscle spasm of back (3) Lumbar radiculitis: Code(s): M54.16 - Radiculopathy, lumbar region (4) Lumbar spondylosis: Code(s): M47.816 - Spondylosis without myelopathy or radiculopathy, lumbar region (5) Spinal stenosis of lumbar region with neurogenic claudication: Code(s): M48.062 - Spinal stenosis, lumbar region with neurogenic claudication Plan Patient presents today with worsening low back pain with spinal-stenosis related symptoms and neurogenic claudication. Patient requests a strong medication for pain so they can sleep. Patient has attempted PT x2 session with significant exacerbation of symptoms. Recent lumbar spine MRI was discussed with patient with the assistance of ASL physician practice consultant via iPad. MRI report is included above and concerning findings were discussed with patient who responded understanding and agreement with proceeding with Neurosurgical evaluation. Patient would like to avoid extensive back surgery but will consider minimally invasive back surgical options. MassPat was reviewed with patient today and informed patient about pending script for Dilaudid prescribed at [facility]. Script sent for Medrol Barney and methocarbamol for acute symptoms. Side effects and precautions were discussed with the patient. Patient is aware to call 911 if pain worsens or if they develop any red flag symptoms to seek emergency care. Patient denies any cauda equina syndrome symptoms at this time. All questions and concerns have been answered and patient agreed with the plan. Follow up as needed. Orders: Referrals Neurosurgery Referral M48.061 - Spinal stenosis, lumbar region without neurogenic claudication, M51.36 - Other intervertebral disc degeneration, lumbar region Medications: New methocarbamol 750 mg PO BID 30 days PRN 60 tabs 0RF muscle spasm M48.061 - Spinal stenosis, lumbar region without neurogenic claudication, M62.830 - Muscle spasm of back methylprednisolone (Medrol (Barney)) PO PER PKG DIR 21 ea 0RF M48.061 - Spinal stenosis, lumbar region without neurogenic claudication Coding Level of Care Code Est Pt Level 4 (10692) Diagnoses Lumbar degenerative disc disease M51.36 Muscle spasm of back M62.830 Lumbar radiculitis M54.16 Lumbar spondylosis M47.816 Spinal stenosis of lumbar region with neurogenic claudication M48.062
[2023-06-02 14:02] VITALS: BP 152/73; PULSE 53; O2SAT 98; BMI 28.9
== END 2023-06-02 14:38 | disposition home or self-care (01) ==
PROVIDERS: PCP Family Medicine; Visit Provider Nurse Practitioner Family
DX: M51.36 Other intervertebral disc degeneration, lumbar region (principal); M62.830 Muscle spasm of back; M54.16 Radiculopathy, lumbar region; M47.816 Spondylosis without myelopathy or radiculopathy, lumbar region; M48.062 Spinal stenosis, lumbar region with neurogenic claudication
CPT/HCPCS: 99214

== ENCOUNTER → 2023-06-02 13:49 | Outpatient (BNVA) | payer MEDICARE, MEDICAID, SELFPAY | PROVIDERS: PCP Family Medicine; Visit Provider Nurse Practitioner Family | DX: M51.36 Other intervertebral disc degeneration, lumbar region (principal); M62.830 Muscle spasm of back; M54.16 Radiculopathy, lumbar region; M47.816 Spondylosis without myelopathy or radiculopathy, lumbar region; M48.062 Spinal stenosis, lumbar region with neurogenic claudication | CPT/HCPCS: 99212 ==

== ENCOUNTER → 2023-06-13 13:50 | Outpatient (BNVA) | payer MEDICARE, MEDICAID, SELFPAY | PROVIDERS: PCP Family Medicine; Referring Provider Nurse Practitioner Family; Visit Provider Physician Assistant ==

== ENCOUNTER 2023-06-24 18:35 | Outpatient (REF) | payer MEDICARE, MEDICAID, SELFPAY ==
[2023-06-24 19:30] LABS: Influenza A PCR NEGATIVE (Negative); Influenza B PCR NEGATIVE (Negative); Resp Syncy Virus RNA Qual PCR POSITIVE (Negative); SARS COV2 PCR INHOUSE NEGATIVE (Negative)
== END 2023-06-24 18:36 | disposition home or self-care (01) ==
LOC: HO.HHCLNP 18:35
PROVIDERS: Visit Provider Internal Medicine
DX: Z11.52 Encounter for screening for COVID-19 (principal); J01.90 Acute sinusitis, unspecified; Z20.822 Contact with and (suspected) exposure to COVID-19; B96.89 Other specified bacterial agents as the cause of diseases classified elsewhere
CPT/HCPCS: 0241U

== ENCOUNTER 2023-06-25 10:01 | Outpatient (AMB) | payer MEDICARE, MEDICAID, SELFPAY ==
--- NOTE | 2023-06-25 10:06 | HO.SPINEOV ---
Intake Intake Visit Reasons: low back pain Intake Note: Mr. Ethan Angeles is here today c/o back pain. MRI done @ [place]. Manager Construction Required: Yes Manager Construction Name: ASL Allergies No Known Allergies [No Known Allergies*] Allergy (Verified 04/17/23 11:13) Assessment & Plan Assessment & Plan (1) Spinal stenosis of lumbar region with neurogenic claudication: Code(s): M48.062 - Spinal stenosis, lumbar region with neurogenic claudication Plan Dear colleague Thank you for referring Jacob Angeles to the office today with a chief complaint of back pain radiating down both legs with weakness. HPI: This consult was done with the aid of the [place] sign language. This 63-year-old patient suffering from progressive back pain radiating down both legs. The pain is worse with walking, standing and changing positions. Sitting down improves the symptoms slightly. The pain is located in the lumbar spine radiating to predominantly the front of the legs. He also noticed weakness in his legs. He has difficulty going upstairs and getting out of a chair. Laying in a flat position relieves all the symptoms. He tried physical therapy that only aggravated his symptoms. He was evaluated by our pain management team that referred to our service after reviewing MRI of the lumbar spine that shows severe multilevel lumbar stenosis. The patient denies any fever, bladder or bowel dysfunction or saddle anesthesia. The following conservative treatment options were tried without success antiinflammatories, tylenol, physical therapy. PMH: Noncontributory Medications: None Allergies: NKDA Social history: Nonsmoker Physical Exam: Patient is in obvious agony. He walks with a Trendelenburg. He has difficulty getting out of a chair due to proximal leg weakness. There are no sensory deficits. No pathological reflexes. Radiological Studies: MRI done at [place] on 05/15/2023 shows multilevel lumbar spinal stenosis. Specifically at L2-3, L3-4 and L4-5. The L4-5 level shows a complete obliteration of the spinal canal . In addition there is a bilateral L4 and L5 foraminal stenosis. Impression/Plan: This patient is suffering from neurogenic claudication with pain and weakness caused by severe lumbar spinal stenosis at L4-5 with a complete obliteration of the spinal canal and moderate spinal stenosis at L2-3 and L3-4. I offered him a multilevel decompression of the above-mentioned levels. I described the procedure and possible complications. The goal is to perform the surgery in day stay. He is scheduled for 08/12/2023. Will move his surgery up if any openings occurred. He also has to see pre testing. Thank you for allowing me to participate in your patients care. total time spent was 50 minutes in counseling ,coordination of plan, personal review of imaging, surgical decision making and subsequent plan Tim Herrera MD, PhD Sp[facility] Fellowship Trained Neurosurgeon Director, [facility] Coding Level of Care Code New Pt Level 4 (56048) Diagnoses Spinal stenosis of lumbar region with neurogenic claudication M48.062
== END 2023-06-25 10:35 | disposition home or self-care (01) ==
PROVIDERS: PCP Family Medicine; Referring Provider Nurse Practitioner Family; Visit Provider Neurological Surgery
DX: M48.062 Spinal stenosis, lumbar region with neurogenic claudication (principal)
CPT/HCPCS: 99204

== ENCOUNTER → 2023-06-25 10:01 | Outpatient (BNVA) | payer MEDICARE, MEDICAID, SELFPAY | PROVIDERS: PCP Family Medicine; Visit Provider Neurological Surgery | DX: M48.062 Spinal stenosis, lumbar region with neurogenic claudication (principal) | CPT/HCPCS: 99202 ==

== ENCOUNTER 2023-07-25 16:05 | Outpatient (REF) | payer MEDICARE, MEDICAID, SELFPAY ==
[2023-07-25 18:49] LABS: Prostate Specific Antigen 2.46 ng/mL (<0.05-4.0)
== END 2023-07-25 16:06 | disposition home or self-care (01) ==
LOC: HO.HHCL 16:05
PROVIDERS: Visit Provider Emergency Medicine
DX: R30.9 Painful micturition, unspecified (principal); R39.16 Straining to void; Z12.5 Encounter for screening for malignant neoplasm of prostate
CPT/HCPCS: 36415; 84153; 87086

== ENCOUNTER → 2023-08-12 05:54 | Day surgery (SDC) | payer MEDICARE, MEDICAID, SELFPAY ==
[2023-07-29 10:11] VITALS: BMI 27.8
--- NOTE | 2023-08-08 08:46 | HO.ANESPROP2 ---
Documented by User: Ria Espinoza NP 08/08/23 08:52 HPI - Anesthesia Eval Consult details Narrative: 63yo M for L2-3,L3-4,L4-5,Lumbar Lami/Disc/decom Multi Phone assessment by PAT nurse. No current home rx per pt. Hx gender dysphoria. Prefers Jacob 04/2023 eval by cardiology for bradycardia. No further workup. PRN f/u only. PMFSH Active Problems Active Problems: All Active Problems (Updated 07/29/23 @ 09:25 by Concepcion Mcnamara RN) Spinal stenosis of lumbar region with neurogenic claudication (Acute) Lumbar spinal stenosis (Acute) Muscle spasm of back (Acute) Lumbar degenerative disc disease (Acute) Lumbar spondylosis (Acute) Lumbar radiculitis (Acute) Myofascial pain on right side (Acute) Past Medical History Medical History (Updated 07/29/23 @ 09:25 by Concepcion Mcnamara RN) Asthma Gender dysphoria Bradycardia Renal calculi Degenerative disc disease, lumbar Lumbar spinal stenosis Hearing impaired Hypertension Depression Surgical History Surgical History History of esophagogastroduodenoscopy (EGD) H/O colonoscopy Hx of neck surgery Social History Social History Household Members Other:: roommate Are you a primary home health aide caregiver to a significant other at home: No Do you presently have visiting nurse or other home services: No Patient Tobacco Use Status: Never used Tobacco Use of substances other than those prescribed or required for medical reasons: No Have you been hit, kicked, punched, or otherwise hurt by someone within the past year? If so, by whom?: No Are you DNR?: No Advance Directives: No Advance Directives Information Provided: Yes (brochure mailed) Advance Directives on File: No Recently lost weight without trying: No Eating poorly because of decreased appetite: No Nutrition Risks: No Nutritional Risk Poor oral hygiene: No Current occupational status: disabled Current occupation: right handed Meds Allergies Allergy/AdvReac Type Severity Reaction Status Date / Time No Known Allergies Allergy Verified 08/12/23 06:25 [No Known Allergies*] Home Medications Medication Instructions Recorded Confirmed Last Taken Type alfuzosin 10 mg tablet,extended 10 mg PO QAM 08/12/23 08/12/23 08/12/23 04:30 History release 24 hr Exam Height,Weight and Vital Signs: Height 5 ft 8 in Weight 83.007 kg Assessment and Plan Assessment Anesthesia Assessment: Chart Reviewed Documented by User: Nory Petersen MD 08/12/23 07:51 HPI - Anesthesia Eval Consult details Narrative: 63yo M for L2-3,L3-4,L4-5,Lumbar Lami/Disc/decom Multi Phone assessment by PAT nurse. No current home rx per pt. Hx gender dysphoria. Prefers Jacob 04/2023 eval by cardiology for bradycardia. No further workup. PRN f/u only. Patient here for surgery today 08/12/23. Concerned about possible UTI, concerned about being discharged home, no ride and willbe home alone. Decision made to reschedule by surgeon. [facility] Past Medical History Medical History (Updated 07/29/23 @ 09:25 by Concepcion Mcnamara RN) Asthma Gender dysphoria Bradycardia Renal calculi Degenerative disc disease, lumbar Lumbar spinal stenosis Hearing impaired Hypertension Depression Surgical History Surgical History History of esophagogastroduodenoscopy (EGD) H/O colonoscopy Hx of neck surgery Social History Social History Household Members Other:: roommate Are you a primary home health aide caregiver to a significant other at home: No Do you presently have visiting nurse or other home services: No Patient Tobacco Use Status: Never used Tobacco Use of substances other than those prescribed or required for medical reasons: No Have you been hit, kicked, punched, or otherwise hurt by someone within the past year? If so, by whom?: No Are you DNR?: No Advance Directives: No Advance Directives Information Provided: Yes (brochure mailed) Advance Directives on File: No Recently lost weight without trying: No Eating poorly because of decreased appetite: No Nutrition Risks: No Nutritional Risk Poor oral hygiene: No Current occupational status: disabled Current occupation: right handed Meds Allergies Allergy/AdvReac Type Severity Reaction Status Date / Time No Known Allergies Allergy Verified 08/12/23 06:25 [No Known Allergies*] Home Medications Medication Instructions Recorded Confirmed Last Taken Type alfuzosin 10 mg tablet,extended 10 mg PO QAM 08/12/23 08/12/23 08/12/23 04:30 History release 24 hr
--- OUTSIDE RECORDS SUMMARY | 2023-08-12 05:58 | XMS_ITS | Continuity of Care Document ---
Author Name Unknown Organization [facility] Address [address] [place] [id number]- Care Team Providers Care Tube Room Supervisor Name Role Phone Not on Staff, PCP Primary Care Physician Unavail able [place] [facility] [place]/23 [facility] [address] [place] [id number] Attending Physician: Cha Reyes Admitting Physician: Cha Reyes Referring Physician: Cha Reyes Allergies, Adverse Reactions, Alerts No Known Allergies Medications albuterol CFC free 90 mcg/inh inhalation aerosol 180 mcg, 2, puffs, Inhalation, Every 4 hours, PRN, # 8 Gm, Refills 0, Tot. Refills 0, Maintenance, 08/01/21 10:01:00 EST, Inhaler, Route to Pharmacy Electronically, [id number], [facility] 3 Start Date: 08/01/21 Status: Ordered albuterol CFC free 90 mcg/inh inhalation aerosol 180 mcg, 2, puffs, Inhalation, Every 4 hours, PRN, # 8 Gm, Refills 0, Tot. Refills 0, Maintenance, 08/01/21 11:21:00 EST, Inhaler, Route to Pharmacy Electronically, [id number], [facility]/pharmacy #[id number] Start Date: 08/01/21 Status: Ordered albuterol CFC free 90 mcg/inh inhalation aerosol 180 mcg, 2, puffs, Inhalation, Every 4 hours, PRN, # 8 Gm, Refills 0, Tot. Refills 0, Maintenance, 08/01/21 11:22:00 EST, Inhaler, Route to Pharmacy Electronically, [id number], [facility]/pharmacy #[id number] Start Date: 08/01/21 Status: Ordered amLODIPine 5 mg oral tablet 5 mg, 1, tablet, By Mouth, Daily, # 30 tablet, Refills 0, Tot. Refills 0, Maintenance, 08/01/21 11:21:00 EST, Route to Pharmacy Electronically, [facility]/pharmacy #[id number], Partial fill upon patient request if the prescription is for a schedule II opioid drug. Start Date: 08/01/21 Status: Ordered ARIPiprazole 2 mg oral tablet 2 mg, [...] 08/01/21 11:22:00 EST, Route to Pharmacy Electronically, [facility]/pharmacy #[id number], Partial fill upon patient request if [...] opioid drug. Start Date: 07/30/21 Status: Ordered Lipitor 20 mg oral tablet 1 tablet = 20 mg, By Mouth, Daily at bedtime, # 30 tablet, 0 Refills, Maintenance, 08/01/21 11:22:00 EST, Tablet, [facility]/pharmacy #[id number], Partial fill upon patient request if [...] Date: 07/30/21 Status: Ordered Problem List Condition Confirmation Course Effective Dates Status Health St atus Informant Depression Confirmed Active GERD (gastroesophageal reflux disease) Confirmed Active Deaf Confirmed Active Patient Care team information Care Team Personnel Name: Elizabeth Berger RN Position: [facility] RN Member Role: Primary Care Nurse Name: Not on Staff, PCP Position: [facility] Physician (General Medicine) Member Role: PCP Name: Jade Duong RN Position: [facility] RN Member Role: Primary Care Nurse Care Team Related Persons Name: GRETCHEN VIZCARRA
--- OUTSIDE RECORDS SUMMARY | 2023-08-12 05:58 | XMS_ITS | Continuity of Care Document ---
Author Name Unknown Organization [facility] Address [address] [place] [id number]- Care Team Providers Care Bee Worker Name Role Phone Not on Staff, PCP Primary Care Physician Unavail able [place] [facility] [place] Date(s): 05/21/23 - 07/26/23 [facility] [address] [place] [id number] Attending Physician: Hao Burnett DO Admitting Physician: Hao Burnett DO Referring Physician: Wendy Barbosa Allergies, Adverse Reactions, Alerts No Known Allergies Medications albuterol CFC free 90 mcg/inh inhalation aerosol 180 mcg, 2, puffs, Inhalation, Every 4 hours, PRN, # 8 Gm, Refills 0, Tot. Refills 0, Maintenance, 08/01/21 10:01:00 EST, Inhaler, Route to Pharmacy Electronically, [id number], [facility] 3 Start Date: 08/01/21 Status: Ordered albuterol CFC free 90 mcg/inh inhalation aerosol 180 mcg, 2, puffs, Inhalation, Every 4 hours, PRN, # 8 Gm, Refills 0, Tot. Refills 0, Maintenance, 08/01/21 11:21:00 EST, Inhaler, Route to Pharmacy Electronically, [id number], [facility]/pharmacy #[id number] Start Date: 08/01/21 Status: Ordered albuterol CFC free 90 mcg/inh inhalation aerosol 180 mcg, 2, puffs, Inhalation, Every 4 hours, PRN, # 8 Gm, Refills 0, Tot. Refills 0, Maintenance, 08/01/21 11:22:00 EST, Inhaler, Route to Pharmacy Electronically, [id number], [facility]/pharmacy #[id number] Start Date: 08/01/21 Status: Ordered amLODIPine 5 mg oral tablet 5 mg, 1, tablet, By Mouth, Daily, # 30 tablet, Refills 0, Tot. Refills 0, Maintenance, 08/01/21 11:21:00 EST, Route to Pharmacy Electronically, [facility]/pharmacy #[id number], Partial fill upon patient request [...] 08/01/21 11:22:00 EST, Route to Pharmacy Electronically, [facility]/pharmacy #[id number], Partial fill upon patient [...] Team Personnel Name: Elizabeth Berger RN Position: [facility] RN Member Role: Primary Care Nurse Name: Not on Staff, PCP Position: [facility] Physician (General Medicine) Member Role: PCP Name: Jade Duong RN Position: [facility] RN Member Role: Primary Care Nurse Care Team Related Persons Name: GRETCHEN VIZCARRA
--- NOTE | 2023-08-12 06:03 | ECG_ITS ---
Test Reason : pre op Blood Pressure : / mmHG Vent. Rate : 050 BPM Atrial Rate : 050 BPM P-R Int : 190 ms QRS Dur : 090 ms QT Int : 446 ms P-R-T Axes : 065 049 020 degrees QTc Int : 406 ms Sinus bradycardia Otherwise normal ECG When compared to the previous EKG of No significant changes seen Referred By: Ria Espinoza Electronically Signed By:Bertin Orona
[2023-08-12 06:27] VITALS: BP 127/75; PULSE 57; RESP 16; TEMP 36.2; O2SAT 98
[2023-08-12 06:31] VITALS: BMI 28.9
[2023-08-12 07:00] LABS: Hematocrit 39.1 % (42.0-52.0); Hemoglobin 13.5 g/dl (14.0-18.0); Mean Corpuscular HGB Conc 34.5 g/dl (31.0-36.0); Mean Corpuscular Hemoglobin 29.8 pg (27.0-33.0); Mean Corpuscular Volume 86.3 fL (80.0-98.0); Mean Platelet Volume 10.2 fL (9.4-12.4); Platelet Count 159 X10*3/uL (160-400); Red Blood Count 4.53 X10*6/uL (4.60-5.80); Red Cell Distribution Width 13.1 % (11.0-16.0); White Blood Count 7.9 X10*3/uL (4.8-10.8)
[2023-08-12] MEDS: Gabapentin 300 MG CAPSULE PO (07:00)
[2023-08-12] MEDS: methocarbamoL 750 MG TABLET PO (07:00)
--- NOTE | 2023-08-12 07:03 | MHC.SHP ---
Pre-Procedural Eval Section A Date of Service: 08/12/23 The patient is an INPATIENT: No Changes since office visit: No Cold of Flu in the past 2 weeks, No New Medical Problems, No Changes in Medication and No Patient answered all questions The History & Physical has been completed within 30 days and I have reviewed it.: No Section B Chief Complaint: Spinal stenosis, lumbar region with neurogenic cla Allergies: Allergies Allergy/AdvReac Type Severity Reaction Status Date / Time No Known Allergies Allergy Verified 08/12/23 06:25 [No Known Allergies*] Review of Systems Sugical H&P ROS: Negative: Constitution, Cardiovascular, Respiratory, Neurological, Psychiatric, Hem-Onc, Allergic/Immunologic, Gastrointestinal, Genitourinary, Musculoskeletal, Integumentary, Endocrine and Eyes/Ears/Nose/Throat Exam Surgical H&P Exam: Not Evaluated: HEENT, Not Evaluated: Heart, Not Evaluated: Lungs, Not Evaluated: Extremities, Not Evaluated: Abdomen, Not Evaluated: Skin and Not Evaluated: Neurological Plan Diagnosis/Plan: Unchanged L2-3, L3-4 and L3-4 decompression. Time Spent With Patient Time: Total time managing care of this patient today __10__ minutes.
[2023-08-12] MEDS: Lactated Ringers 1,000 ML 100 ML IVCONT (07:12)
[2023-08-12 07:16] LABS: Anion Gap 15 (12-20); Blood Urea Nitrogen 27 mg/dL (9-16); Calcium 9.3 mg/dL (8.4-10.2); Carbon Dioxide 23 mmol/L (22-29); Chloride 107 mmol/L (96-108); Creatinine Clr Calc Pharmacy 73.5; Estimated Glomerular Filt Rate > 60; Glucose Fasting 107 mg/dL (60-99); Sodium 141 mmol/L (135-145)
--- NOTE | 2023-08-12 07:29 | MHC.SHP ---
Pre-Procedural Eval Section A Date of Service: 08/12/23 The patient is an INPATIENT: No Changes since office visit: No Cold of Flu in the past 2 weeks, No New Medical Problems, No Changes in Medication and No Patient answered all questions The History & Physical has been completed within 30 days and I have reviewed it.: No Section B Chief Complaint: Spinal stenosis, lumbar region with neurogenic cla Allergies: Allergies Allergy/AdvReac Type Severity Reaction Status Date / Time No Known Allergies Allergy Verified 08/12/23 06:25 [No Known Allergies*] Review of Systems Sugical H&P ROS: Negative: Constitution, Cardiovascular, Respiratory, Neurological, Psychiatric, Hem-Onc, Allergic/Immunologic, Gastrointestinal, Musculoskeletal, Integumentary, Endocrine and Eyes/Ears/Nose/Throat and Yes, Specify: Genitourinary (pt reports malodorous urine, was seen yesterday, given alfuzosin) Exam Surgical H&P Exam: Not Evaluated: HEENT, Not Evaluated: Heart, Not Evaluated: Lungs, Not Evaluated: Extremities, Not Evaluated: Abdomen, Not Evaluated: Skin and Not Evaluated: Neurological Plan Diagnosis/Plan: Change Dr. Herrera and I were called back to the holding area to see the patient, he had further issues to discuss, he wanted to tell us that he was seen somewhere in the medical environment yesterday because of malodorous urine, possible urinary tract infection, he was prescribed a medication for BPH. We do not have any records of what went on for who evaluated him. He also has no postoperative care support system in place and he is thinking he should just stay in the hospital after surgery. On top of all that, his preoperative labs came back showing elevated BUN, possibly consistent with dehydration which may be part of his urinary issue. This is an elective surgery, and we explained to him that it is a day surgery. We explained to him that this would be risky to undertake surgery it given that he does not have resource to help him at home, and he does not need admission to the hospital for the surgery. He also needs to be cleared by his PCP before we operate to see why his kidney function is abnormal and why his urine is malodorous. Therefore, the decision was made to cancel the surgery and we will reschedule once he has preoperative clearance regarding his kidneys and he can establish some kind of postoperative support systems where he can stay after surgery. Time Spent With Patient Time: Total time managing care of this patient today ____ minutes.
--- NOTE | 2023-08-12 09:02 | PC.NURSE ---
Addendum entered by Radha Canales 08/12/23 09:24: Patient received preop Robaxin PO and Gabaoentin PO. Per Dr. Herrera this is okay, patient can go home. Original Note: Patient in preop. allied health professional at bedside. Patient states that he does not take any medications however, I started on antibiotics three days ago for a UTI, my pee smells very bad but the burning is much less . Name of this medication is uknown. Patient explained that roommate in waiting room might have the pill bottle. Upon checking, medication called Jamie and was prescribed on 07/25. This medication not an antibiotic. When questioned, patient states I thought it was an antibiotic, when I went to the doctors for this, they started me on this medication and took a pee test but never called me back . Dr. Herrera, Dr. Wan, and Dr. Petersen at bedside. Preop BUN results elevated. Per Dr. Herrera, patient to be cancelled to get symptoms under control and advised to go back to PCP for urinalysis and treatment. Patient aware of plan. Phone number to PCP Dr. Becerra given to patient. Office doesn't open until 8am. Patients IV removed. All belongings back with patient including hearing aid. Voucher given for hospital transportation. Records Management Assistant OB wheeled patient down to the front with roommate and allied health professional.
== END ==
PROVIDERS: Nurse Practitioner; PCP Family Medicine; Visit Provider Neurological Surgery
DX: M48.062 Spinal stenosis, lumbar region with neurogenic claudication (principal); Z53.09 Procedure and treatment not carried out because of other contraindication; N39.0 Urinary tract infection, site not specified; F64.9 Gender identity disorder, unspecified
CPT/HCPCS: 36415; 80048; 85027; 93005; J0131; J0690

== ENCOUNTER → 2023-08-12 06:03 | Outpatient (BNV) | payer MEDICARE, MEDICAID, SELFPAY | PROVIDERS: PCP Family Medicine; Visit Provider Internal Medicine Cardiovascular Disease | DX: R00.1 Bradycardia, unspecified (principal) | CPT/HCPCS: 93010 ==

== ENCOUNTER 2023-08-14 16:04 | Outpatient (REF) | payer MEDICARE, MEDICAID, SELFPAY | END 2023-08-14 16:05 | disposition home or self-care (01) | LOC: HO.HHCLNP 16:04 | PROVIDERS: Visit Provider Family Medicine | DX: R30.0 Dysuria (principal) | CPT/HCPCS: 81001 ==

== ENCOUNTER 2023-10-03 16:44 | Outpatient (REF) | payer MEDICARE, SELFPAY ==
[2023-10-03 17:40] LABS: MANUAL DIFF FLAG NO
[2023-10-03 17:42] LABS: Eosinophils Absolute Auto 0.2 X10*3/uL (0.0-0.4); Hematocrit 40.5 % (42.0-52.0); Hemoglobin 14.1 g/dl (14.0-18.0); Imm Gran Abs Auto 0.03 X10*3/uL (0.00-0.03); Imm Gran Pct Auto 0.4 % (0.0-0.4); Lymphocytes Absolute Auto 1.7 X10*3/uL (1.2-4.9); Lymphocytes Percent Auto 20.8 % (20-40); Mean Corpuscular HGB Conc 34.8 g/dl (31.0-36.0); Mean Corpuscular Hemoglobin 29.8 pg (27.0-33.0); Mean Corpuscular Volume 85.6 fL (80.0-98.0); Mean Platelet Volume 10.5 fL (9.4-12.4); Monocytes Absolute Auto 0.7 X10*3/uL (0.1-1.2); Monocytes Percent Auto 8.2 % (2-11); Neutrophils Absolute Auto 5.5 x10*3/uL (2.0-8.3); Neutrophils Percent Auto 67.6 % (45-73); Platelet Count 191 X10*3/uL (160-400); Red Blood Count 4.73 X10*6/uL (4.60-5.80); Red Cell Distribution Width 12.6 % (11.0-16.0); White Blood Count 8.1 X10*3/uL (4.8-10.8)
[2023-10-03 18:30] LABS: Alanine Aminotransferase 22 U/L (0-40); Albumin Level 4.3 g/dL (3.5-5.0); Alkaline Phosphatase 64 U/L (39-117); Anion Gap 11 (12-20); Aspartate Amino Transferase 20 U/L (5-37); Bilirubin Total 0.6 mg/dL (0.0-1.0); Blood Urea Nitrogen 16 mg/dL (9-16); Calcium 9.1 mg/dL (8.4-10.2); Carbon Dioxide 26 mmol/L (22-29); Chloride 109 mmol/L (96-108); Estimated Glomerular Filt Rate > 60; Glucose Random 100 mg/dL (60-115); Sodium 142 mmol/L (135-145); Total Protein 7.3 g/dL (6.5-8.0)
== END 2023-10-03 16:45 | disposition home or self-care (01) ==
LOC: HO.HHCL 16:44
PROVIDERS: PCP Internal Medicine Geriatric Medicine; Visit Provider Internal Medicine Geriatric Medicine
DX: R10.84 Generalized abdominal pain (principal)
CPT/HCPCS: 36415; 80053; 85025

== ENCOUNTER 2023-10-13 16:34 | Emergency (ER) | payer MEDICARE, MEDICAID, SELFPAY ==
--- NOTE | 2023-10-13 | ECG_ITS ---
Test Reason : CHEST PAIN Blood Pressure : / mmHG Vent. Rate : 048 BPM Atrial Rate : 048 BPM P-R Int : 172 ms QRS Dur : 080 ms QT Int : 444 ms P-R-T Axes : 052 048 029 degrees QTc Int : 396 ms Sinus bradycardia with Premature atrial complexes Otherwise normal ECG When compared with ECG of 12-AUG-2023 06:36, Premature atrial complexes are now Present Referred By: Generic ED Physician Electronically Signed By:Bertin Orona
--- NOTE | ~2023-10-13 | CT_ITS ---
EXAMINATION: CT ABDOMEN AND PELVIS WITHOUT CONTRAST CLINICAL INFORMATION: Abdominal pain COMPARISON: CT abdomen pelvis 11/26/2022 TECHNIQUE: Multidetector volumetric imaging was performed from the superior aspect of the liver through the pubic symphysis. Sagittal and coronal reformatted images were obtained on the technologist's workstation. This CT examination was performed using dose optimization techniques as appropriate, variously including the following: *Automated exposure control *Adjustment of mA and/or kV according to patient size (this includes techniques or standardized protocols for targeted exams where dose is matched to indication/reason for exam; i.e. extremities or head) *Use of iterative reconstruction technique DLP: 696 mGy-cm FINDINGS: LUNG BASES: Marked bilateral gynecomastia. The visualized lung bases are unremarkable. LIVER, GALLBLADDER, AND BILIARY TREE: The liver is normal in size and shape but demonstrates slightly decreased attenuation consistent with hepatic steatosis. No focal hepatic lesion or biliary ductal dilatation is present. Status post cholecystectomy. PANCREAS: Unremarkable. SPLEEN: Unremarkable. ADRENAL GLANDS: Unremarkable. KIDNEYS AND URETERS: The kidneys are normal in size, shape, and attenuation. No hydronephrosis, hydroureter, or calculi seen. No perinephric stranding. BLADDER: Unremarkable. GASTROINTESTINAL TRACT: The small and large bowel are unremarkable. The appendix is unremarkable. ABDOMINAL WALL: No significant hernia is appreciated. Tiny inguinal hernias containing only fat. LYMPH NODES: No retroperitoneal lymphadenopathy. VASCULAR: Calcific atherosclerotic changes are present in the aorta and iliac vessels. There is no evidence of an abdominal aortic aneurysm. PELVIC VISCERA: The prostate and seminal vesicles are unremarkable. OSSEOUS STRUCTURES: Degenerative changes are present throughout the spine. No bony destructive lesions. CT/CT abdomen pelvis wo IV con IMPRESSION: 1. A cause for the patient's abdominal pain has not been found. 2. Incidental note made of hepatic steatosis, cholecystectomy, marked bilateral gynecomastia and degenerative changes in the spine. Fleischner guidelines were followed.
[2023-10-13 16:47] VITALS: BP 130/60; PULSE 60
[2023-10-13 17:20] LABS: MANUAL DIFF FLAG NO
[2023-10-13 17:25] VITALS: BP 149/76; PULSE 52; RESP 16; TEMP 36.4; O2SAT 95; BMI 33.1
--- NOTE | 2023-10-13 17:25 | ED_ITS ---
HPI - General Adult General Chief complaint: Abdominal Pain Stated complaint: abd pain,chest pain Time Seen by Provider: 10/13/23 22:01 Source: patient, family and home care liaison (emergency management consultant ID#[id number]) Mode of arrival: ambulatory Limitations: no limitations History of Present Illness HPI narrative: 63-year-old male who is hearing impaired and uses ASL for interpretation who is presenting to the ER with complaints of brown watery diarrhea, abdominal cramping since yesterday. Reports a few days prior to that he was having back pain and now the pain is back ever since he has been having this abdominal cramping and diarrhea. Reports he has been having back pain for approximately 1 year. Reports he will have surgery on his back on 11/24 patient do not know what kind of surgery is going to perform Related Data Home Medications ?Medication ?Instructions ?Recorded ?Confirmed famotidine 20 mg tablet 20 mg PO BID 11/10/23 04/01/24 ondansetron HCl 4 mg tablet 4 mg PO Q8H PRN nausea/vomiting 11/10/23 04/01/24 sucralfate 1 gram tablet 1 g PO QID 11/10/23 04/01/24 cetirizine 10 mg tablet 10 mg PO QAM 02/23/24 04/01/24 Previous Rx's ?Medication ?Instructions ?Recorded polyethylene glycol 3350 17 17 g PO BID #238 grams 11/12/23 gram/dose oral powder (Miralax) benzonatate 200 mg capsule 200 mg PO TID PRN cough #20 caps 01/21/24 tramadol 50 mg tablet 50 mg PO Q6H PRN pain #20 tabs 01/21/24 bisacodyl 5 mg tablet,delayed 20 mg (4 x 5 mg) PO ONCE 1 day #4 02/23/24 release (Dulcolax (bisacodyl)) tabs polyethylene glycol 3350 17 238 g PO ONCE #238 grams 02/23/24 gram/dose oral powder (Miralax) sulfamethoxazole 800 1 tab PO BID 7 days #14 tabs 03/11/24 mg-trimethoprim 160 mg tablet (Bactrim DS) levofloxacin 500 mg tablet 500 mg PO DAILY 7 days #7 tabs 03/15/24 cefuroxime axetil 500 mg tablet 500 mg PO BID 7 days #14 tabs 03/17/24 lorazepam 1 mg tablet (Ativan) 1 mg PO BEDTIME PRN sleep #10 tabs 03/24/24 terazosin 5 mg capsule 5 mg PO BEDTIME 30 days #30 caps 04/01/24 cefuroxime axetil 500 mg tablet 500 mg PO BID #14 tabs 04/03/24 ibuprofen 400 mg tablet 400 mg PO Q6H PRN pain #14 tabs 04/16/24 nirmatrelvir 300 mg (150 mg See Rx Instructions PO .COMPLEX 04/16/24 x2)-ritonavir 100 mg tablet,dose #30 ea pack (Paxlovid) Allergies Allergy/AdvReac Type Severity Reaction Status Date / Time No Known Allergies Allergy Verified 04/15/24 23:41 [No Known Allergies*] Review of Systems 2 Review of Systems: All other systems are reviewed and are negative Constitutional: Reports as per HPI and Reports no additional constitutional complaints Eyes: Reports as per HPI and Reports no additional eye complaints Reports system reviewed and no additional complaints, except as documented Cardiovascular: Reports as per HPI and Reports no additional cardiovascular complaints Respiratory: Reports as per HPI and Reports no additional respiratory complaints Gastrointestinal: Reports as per HPI and Reports no additional gastrointestinal complaints Genitourinary: Reports no additional female genitourinary complaints Musculoskeletal: Reports no additional musculoskeletal complaints Skin/Breast: Reports system reviewed and no additional complaints, except as docu Psychiatric: Reports no additional psychiatric complaints Endocrine: Reports no additional endocrine complaints Hematologic/Lymphatic: Reports no additional hematologic/lymphatic complaints Allergic/Immunologic: Reports no additional allergic/immunologic complaints Reports system reviewed and no additional complaints, except as documented and Reports Abnormal speech present [facility] Past Medical History Medical History Personality disorder 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 Asthma Gender dysphoria Bradycardia Renal calculi Degenerative disc disease, lumbar Lumbar spinal stenosis Hearing impaired Hypertension Depression Surgical History H/O cervical spine surgery History of esophagogastroduodenoscopy (EGD) H/O colonoscopy Family History Family History Other No known health problems Social History Social History Household Members Other:: roommate Are you a primary acute care certified nursing assistant to a significant other at home: No Do you presently have visiting nurse or other home services: No Alcohol intake: never Comment: overflow Patient Tobacco Use Status: Never used Tobacco Current occupational status: disabled Current occupation: right handed Physical Exam ED Vital Signs: Vital Signs - 24 hr 10/13/23 17:25 10/13/23 19:59 10/13/23 21:58 Temperature 97.5 F 97.9 F Pulse Rate 52 57 52 Respiratory Rate 16 18 18 Blood Pressure 149/76 H 145/78 H 169/70 H Pulse Oximetry 95 97 98 Oxygen Delivery Method Room Air Room Air Room Air BMI result Body Mass Index 33.1 Vital signs have been reviewed and appear to be correct. Blood pressure elevated. Heart rate normal. Respiratory rate normal. Temperature normal. Oxygen saturation normal. Appearance: Alert. Oriented X3. No acute distress. Head: Normal external exam. Normocephalic. Atraumatic. No Spangler signs noted. No raccoon eyes noted Eyes: PERRLA. EOMI. Conjunctiva and sclera normal. Eyelids normal. ENT: TM's Normal. Pharynx normal. Uvula midline. Moist mucous membranes. No trismus noted. No drooling noted. No muffled voice noted. Neck: Normal inspection. Neck supple. FROM. No adenopathy. Thyroid Normal. No meningeal signs. No neck mass noted. CVS: Normal heart rate and rhythm. Heart sound normal. No murmurs noted. Pulses normal throughout. Respiratory: No respiratory distress. Painless inspiration. Breath sounds normal. No wheezes/rales/rhonchi noted. Chest nontender. No accessory muscle usage noted or decreased air movement noted. Abdomen: Soft and nontender. Bowel sounds normal in all 4 quadrants. No distention noted. No organomegaly noted. No visible injury noted. Back: No CVA tenderness. Full range of motion noted. Skin: Skin warm and dry. Normal skin color. Normal skin turgor. No rashes/lesions/lacerations noted. Extremities: No lower extremity edema. Extremities exhibit normal range of motion. Extremities nontender. Neuro: Oriented X 3. Cranial nerve exam: II-XII are grossly intact No motor deficit. No sensory deficit. Reflexes normal. Course Course Course Narrative: RME- 17:25pm - Plan: Labs, COVID/RSV/flu swab, UA and patient will be sent back to the waiting room to be evaluated the ED. Reevaluation(s) Reevaluation #1: Acute on chronic back pain patient is scheduled to have a back surgery that a can not reported to us on 11/24, presented with abdominal pain with cramps with nausea and vomiting, CT of the abdomen and pelvis is revealing no acute pathology, labs are unremarkable. IV hydration, pain medication. And will re- evaluate. Time: 22:54 Reevaluation #2: Patient reports improvement of the back pain still mild abdominal and back pain. Patient was given Toradol and morphine will discharge the patient to follow-up with his PCP recommending pain management clinic. Time: 00:15 Reevaluation #3: 10/14/23 14:55 received phone call from patient via insurance agency owner. Patient stating that oxycodone prescription was sent to incorrect pharmacy. Upon review, appears prescription was rejected. Initial order canceled. New prescription for 4 tabs of oxycodone 5 mg sent to [facility] on [facility] in [place]. Medications Administered Discontinued Medications Generic Name Dose Route Start Last Admin Trade Name Freq PRN Reason Stop Dose Admin Famotidine 20 mg 10/13/23 22:53 10/13/23 23:03 Famotidine/Pf 20 Mg/2 Ml Vial IVPUSH 10/13/23 22:54 20 mg ONCE ONE Administration Sodium Chloride 1,000 mls @ 999 mls/hr 10/13/23 22:47 10/13/23 22:53 Ns IV 10/13/23 23:47 999 mls/hr .Q1H1M ONE Administration Ketorolac Tromethamine 30 mg 10/14/23 00:14 10/14/23 01:13 Ketorolac Tromethamine 30 Mg/Ml Vial IVPUSH 10/14/23 00:15 30 mg ONCE ONE Administration Loperamide HCl 2 mg 10/13/23 22:53 10/13/23 23:03 Loperamide Hcl 2 Mg Capsule PO 10/13/23 22:54 2 mg ONCE ONE Administration Morphine Sulfate 2 mg 10/13/23 22:47 10/13/23 22:58 Morphine Sulfate 2 Mg/Ml Cartridge IVPUSH 10/13/23 22:48 2 mg ONCE ONE Administration Protocol Morphine Sulfate 1 mg 10/14/23 00:14 10/14/23 01:11 Morphine Sulfate 2 Mg/Ml Cartridge IVPUSH 10/14/23 00:15 1 mg ONCE ONE Administration Protocol Medical Decision Making Differential Diagnosis Differential Diagnoses: The differential diagnosis associated with the presentation includes (Acute appendicitis, colitis, diverticulitis, pancreatitis, cholecystitis, electrolyte derangement, UTI, viral infection, severe anemia.) Admission/Observation Consideration of admission/observation: Escalation of care including admission/observation considered Lab Data MDM Lab Attestation statement: I reviewed the patient's lab results. 10/13/23 17:15 10/13/23 17:15 Labs: Lab Results 10/13/23 10/13/23 Range/Units 17:15 22:05 WBC 7.1 (4.8-10.8) X10*3/uL RBC 4.70 (4.60-5.80) X10*6/uL Hgb 14.0 (14.0-18.0) g/dl Hct 41.0 L (42.0-52.0) % MCV 87.2 (80.0-98.0) fL MCH 29.8 (27.0-33.0) pg MCHC 34.1 (31.0-36.0) g/dl RDW 12.9 (11.0-16.0) % Plt Count 176 (160-400) X10*3/uL MPV 10.5 (9.4-12.4) fL Immature Gran % (Auto) 0.7 H (0.0-0.4) % Neut % (Auto) 62.3 (45-73) % Lymph % (Auto) 23.7 (20-40) % [place] % (Auto) 9.3 (2-11) % Eos % (Auto) 3.9 (0-4) % Baso % (Auto) 0.1 (0-2) % Lymph # (Auto) 1.7 (1.2-4.9) X10*3/uL [place] # (Auto) 0.7 (0.1-1.2) X10*3/uL Eos # (Auto) 0.3 (0.0-0.4) X10*3/uL Baso # (Auto) 0.0 (0.0-0.2) X10*3/uL Abs Immat Gran (auto) 0.05 H (0.00-0.03) X10*3/uL Absolute Neuts (auto) 4.4 (2.0-8.3) x10*3/uL Absolute Nucleated RBC 0.000 (0.0-0.012) X10*3/uL Nucleated RBC % (auto) 0.0 (0.0-0.2) /100WBC Sodium 145 (135-145) mmol/L Potassium 4.3 (3.3-5.1) mmol/L Chloride 109 H (96-108) mmol/L Carbon Dioxide 28 (22-29) mmol/L Anion Gap 12 (12-20) BUN 16 (9-16) mg/dL Creatinine 0.87 (0.5-1.4) mg/dL Estim Creat Clear Calc 82.4 Estimated GFR > 60 Random Glucose 96 (60-115) mg/dL Calcium 9.5 (8.4-10.2) mg/dL Magnesium 2.0 (1.6-2.6) mg/dL Total Bilirubin 0.5 (0.0-1.0) mg/dL Direct Bilirubin 0.1 (0.0-0.5) mg/dL AST 16 (5-37) U/L ALT 20 (0-40) U/L Alkaline Phosphatase 64 (39-117) U/L Troponin I High Sens < 2.7 (<3.5-35.0) ng/L Total Protein 7.1 (6.5-8.0) g/dL Albumin 4.2 (3.5-5.0) g/dL Urine Color Yellow Urine Appearance Clear Urine pH 6.5 (5.0-9.0) Ur Specific [place] 1.025 (1.005-1.025) Urine Protein Negative (Neg-Trace) mg/dL Urine Glucose (UA) Negative (Negative) mg/dL Urine Ketones Negative (Negative) mg/dL Urine Blood Negative (Negative) Urine Nitrite Negative (Negative) Ur Leukocyte Esterase Trace H (Negative) Urine RBC 0-2 (0-2) /HPF Urine WBC 0-5 (0-5) /HPF Ur Squamous Epith Cells 6-10 (0-2) /HPF Urine Bacteria None Seen (None Seen) Hyaline Casts 0-2 (0-2) /LPF Influenza Type A (PCR) NEGATIVE (Negative) Influenza Type B (PCR) NEGATIVE (Negative) RSV RNA Qual (PCR) NEGATIVE (Negative) SARS-CoV-2 RNA (RT-PCR) NEGATIVE (Negative) Independent Interpretation I performed an independent interpretation of an: CT Scan (Abdomen and pelvis: No acute intra-abdominal pathology.) Radiology Impression Discussion of test interpretation with radiology: I have reviewed the radiologist's reading. Chronic Conditions Patient?s care impacted by: Other (Chronic abdominal pain) Discharge Plan Discharge Clinical Impression: Acute exacerbation of chronic low back pain, Abdominal pain Patient Disposition: Home, Self-Care Instructions: Abdominal Pain (ED) Additional Instructions: talk your doctor to refer you to the pain management clinic for better management of your chronic back pain. Prescriptions: No Action sucralfate 1 gram tablet 1 g PO QID ondansetron HCl 4 mg tablet 4 mg PO Q8H PRN (Reason: nausea/vomiting) famotidine 20 mg tablet 20 mg PO BID levofloxacin 500 mg tablet 500 mg PO DAILY 7 Days Qty: 7 0RF cefuroxime axetil 500 mg tablet 500 mg PO BID Qty: 14 0RF Paxlovid 300 mg (150 mg x 2)-100 mg tablets,dose pack See Rx Instructions .ROUTE .COMPLEX Qty: 30 0RF Rx Instructions: take TWO 150 mg tablets of nirmatrelvir with ONE 100 mg tablet of ritonavir twice daily for 5 days ibuprofen 400 mg tablet 400 mg PO Q6H PRN (Reason: pain) Qty: 14 0RF polyethylene glycol 3350 [Miralax] 17 gram/dose powder 17 g PO BID Qty: 238 0RF benzonatate 200 mg capsule 200 mg PO TID PRN (Reason: cough) Qty: 20 0RF tramadol 50 mg tablet 50 mg PO Q6H PRN (Reason: pain) Qty: 20 0RF cefuroxime axetil 500 mg tablet 500 mg PO BID 7 Days Qty: 14 0RF lorazepam [Ativan] 1 mg tablet 1 mg PO BEDTIME PRN (Reason: sleep) Qty: 10 0RF sulfamethoxazole-trimethoprim [Bactrim DS] 800-160 mg tablet 1 tab PO BID 7 Days Qty: 14 0RF cetirizine 10 mg tablet 10 mg PO QAM bisacodyl [Dulcolax (bisacodyl)] 5 mg tablet,delayed release (DR/EC) 20 mg PO ONCE 1 Days Qty: 4 0RF Rx Instructions: take 4 tabs at noon the day before your colonoscopy polyethylene glycol 3350 [Miralax] 17 gram/dose powder 238 g PO ONCE Qty: 238 0RF Rx Instructions: As directed by gastroenterology department at [facility] terazosin 5 mg capsule 5 mg PO BEDTIME 30 Days Qty: 30 1RF Interventions: ED Discharge Assessment Last Done: 10/14/23 01:44 Discharge Date/Time: 10/14/23 01:45 Print Language: Mauritian
[2023-10-13 17:27] LABS: Basophils Percent Auto 0.1 % (0-2); Eosinophils Absolute Auto 0.3 X10*3/uL (0.0-0.4); Eosinophils Percent Auto 3.9 % (0-4); Imm Gran Abs Auto 0.05 X10*3/uL (0.00-0.03); Imm Gran Pct Auto 0.7 % (0.0-0.4); Lymphocytes Absolute Auto 1.7 X10*3/uL (1.2-4.9); Lymphocytes Percent Auto 23.7 % (20-40); Mean Corpuscular HGB Conc 34.1 g/dl (31.0-36.0); Mean Corpuscular Hemoglobin 29.8 pg (27.0-33.0); Mean Corpuscular Volume 87.2 fL (80.0-98.0); Mean Platelet Volume 10.5 fL (9.4-12.4); Monocytes Absolute Auto 0.7 X10*3/uL (0.1-1.2); Monocytes Percent Auto 9.3 % (2-11); Neutrophils Absolute Auto 4.4 x10*3/uL (2.0-8.3); Neutrophils Percent Auto 62.3 % (45-73); Platelet Count 176 X10*3/uL (160-400); Red Cell Distribution Width 12.9 % (11.0-16.0); White Blood Count 7.1 X10*3/uL (4.8-10.8)
[2023-10-13 17:36] LABS: Alanine Aminotransferase 20 U/L (0-40); Albumin Level 4.2 g/dL (3.5-5.0); Alkaline Phosphatase 64 U/L (39-117); Anion Gap 12 (12-20); Aspartate Amino Transferase 16 U/L (5-37); Bilirubin Total 0.5 mg/dL (0.0-1.0); Blood Urea Nitrogen 16 mg/dL (9-16); Calcium 9.5 mg/dL (8.4-10.2); Carbon Dioxide 28 mmol/L (22-29); Chloride 109 mmol/L (96-108); Creatinine Clr Calc Pharmacy 82.4; Estimated Glomerular Filt Rate > 60; Glucose Random 96 mg/dL (60-115); Potassium 4.3 mmol/L (3.3-5.1); Sodium 145 mmol/L (135-145); Total Protein 7.1 g/dL (6.5-8.0)
[2023-10-13 17:44] LABS: Troponin-I High Sensitivity < 2.7 ng/L (<3.5-35.0)
[2023-10-13 17:58] LABS: Influenza A PCR NEGATIVE (Negative); Influenza B PCR NEGATIVE (Negative); Resp Syncy Virus RNA Qual PCR NEGATIVE (Negative); SARS COV2 PCR INHOUSE NEGATIVE (Negative)
[2023-10-13 18:20] LABS: Bilirubin Direct 0.1 mg/dL (0.0-0.5)
[2023-10-13 19:59] VITALS: BP 145/78; PULSE 57; RESP 18; TEMP 36.6; O2SAT 97
[2023-10-13 21:58] VITALS: BP 169/70; PULSE 52; RESP 18; O2SAT 98
[2023-10-13 22:20] LABS: Appearance Urine Clear; Color Urine Yellow; Glucose Urine UA Negative (Negative); Leukocyte Esterase Urine Trace (Negative); Nitrite Urine Negative (Negative); PH 6.5 (5.0-9.0); Specific Gravity - Urine 1.025 (1.005-1.025); UMIC TRIGGER UACC YES; Urine Blood Negative (Negative); Urine Ketones Negative (Negative); Urine Protein Negative (Neg-Trace)
[2023-10-13 22:26] LABS: Bacteria Urine None Seen (None Seen); Hyaline Casts Urine 0-2 /LPF (0-2); RBC Urine 0-2 /HPF (0-2); WBC Urine 0-5 /HPF (0-5)
[2023-10-13] MEDS: 0.9 % Sodium Chloride 1,000 ML 999 ML IV (22:53)
[2023-10-13] MEDS: Morphine Sulfate 2 MG/ML CARTRIDGE IVPUSH (22:58)
[2023-10-13] MEDS: Famotidine/PF 20 MG/2 ML VIAL IVPUSH (23:03)
[2023-10-13] MEDS: Loperamide HCl 2 MG CAPSULE PO (23:03)
[2023-10-14] MEDS: Morphine Sulfate 2 MG/ML CARTRIDGE 1 MG IVPUSH (01:11)
[2023-10-14] MEDS: Ketorolac Tromethamine 30 MG/ML VIAL IVPUSH (01:13)
== END 2023-10-14 01:45 | disposition home or self-care (01) ==
PROVIDERS: Physician Assistant Medical; Emergency Provider Emergency Medicine
DX: R10.9 Unspecified abdominal pain (principal); G89.29 Other chronic pain; M54.50 Low back pain, unspecified; I10 Essential (primary) hypertension; Z11.52 Encounter for screening for COVID-19; Z20.828 Contact with and (suspected) exposure to other viral communicable diseases
CPT/HCPCS: 0241U; 74176; 80053; 81001; 82248; 83735; 84484; 85025; 93005; 96374; 96375; 96376; 99284; 99285; J1885; J2270

== ENCOUNTER → 2023-10-13 17:09 | Outpatient (BNV) | payer OTHER, MEDICAID, SELFPAY | PROVIDERS: Emergency Provider Emergency Medicine; Visit Provider Internal Medicine Cardiovascular Disease | DX: R00.1 Bradycardia, unspecified (principal) | CPT/HCPCS: 93010 ==

== ENCOUNTER 2023-11-12 01:55 | Emergency (ER) | payer OTHER, SELFPAY ==
--- NOTE | ~2023-11-12 | CT_ITS ---
EXAMINATION: CT ABDOMEN AND PELVIS WITH CONTRAST CLINICAL INFORMATION: Right lower quadrant pain. COMPARISON: 10/13/2023 TECHNIQUE: Multidetector volumetric images were obtained from the superior aspect of the liver through the pubic symphysis following administration 85 mL of Omnipaque 350 intravenous contrast. Sagittal and coronal reformatted images were obtained on the technologist's workstation. Oral contrast: No This CT examination was performed using dose optimization techniques as appropriate, variously including the following: *Automated exposure control *Adjustment of mA and/or kV according to patient size (this includes techniques or standardized protocols for targeted exams where dose is matched to indication/reason for exam; i.e. extremities or head) *Use of iterative reconstruction technique DLP: 627 mGy-cm FINDINGS: LUNG BASES: The visualized lung bases are unremarkable. LIVER, GALLBLADDER, AND BILIARY TREE: The liver is normal in size, shape, and attenuation. No focal hepatic lesion or biliary ductal dilatation is present. There has been a prior cholecystectomy. PANCREAS: Unremarkable. SPLEEN: Unremarkable. ADRENAL GLANDS: Unremarkable. KIDNEYS AND URETERS: The kidneys are normal in size, shape, and attenuation. No hydronephrosis, hydroureter, or calculi seen. No perinephric stranding. BLADDER: There is a Henry catheter in place decompressing the urinary bladder. GASTROINTESTINAL TRACT: There is retained stool. The appendix is visualized and is within normal limits. ABDOMINAL WALL: There are bilateral small inguinal hernias containing fat. LYMPH NODES: Normal. VASCULAR: Atherosclerotic plaque of the abdominal aorta. PELVIC VISCERA: Unremarkable. OSSEOUS STRUCTURES: There is diffuse thoracolumbar disc degenerative change with multilevel spinal canal narrowing. CT/CT abdomen pelvis w IV con IMPRESSION: No acute intra-abdominal pathology. Retained stool. Thoracolumbar disc degenerative change. Fleischner guidelines were followed.
[2023-11-12 02:12] VITALS: BP 119/56; BP 260/110; PULSE 60; PULSE 65; RESP 22; TEMP 36.2; O2SAT 94; O2SAT 96; BMI 34.7
[2023-11-12 02:34] LABS: Hematocrit 38.3 % (42.0-52.0); Hemoglobin 13.4 g/dl (14.0-18.0); Mean Corpuscular Hemoglobin 30.3 pg (27.0-33.0); Mean Corpuscular Volume 86.7 fL (80.0-98.0); Mean Platelet Volume 10.3 fL (9.4-12.4); Platelet Count 167 X10*3/uL (160-400); Red Blood Count 4.42 X10*6/uL (4.60-5.80); White Blood Count 7.9 X10*3/uL (4.8-10.8)
--- NOTE | 2023-11-12 02:35 | PC.NURSE ---
Pt BIBA, per EMS and pt reporting having 10/10 abdominal pain sharp and tearing worse while trying to have BM, Radiating down to leg. Feels like poop is stuck in rectum. Last BM today reports no urination since yesterday afternoon at 4pm. Bladder scan done and currently showing >649.
[2023-11-12 02:38] VITALS: BP 174/102; PULSE 48; RESP 18; TEMP 36.4; O2SAT 100
[2023-11-12 02:49] LABS: Alanine Aminotransferase 19 U/L (0-40); Albumin Level 3.8 g/dL (3.5-5.0); Alkaline Phosphatase 62 U/L (39-117); Anion Gap 14 (12-20); Aspartate Amino Transferase 16 U/L (5-37); Bilirubin Total 0.4 mg/dL (0.0-1.0); Blood Urea Nitrogen 23 mg/dL (9-16); Calcium 8.9 mg/dL (8.4-10.2); Carbon Dioxide 22 mmol/L (22-29); Chloride 109 mmol/L (96-108); Creatinine Clr Calc Pharmacy 78.3; Estimated Glomerular Filt Rate > 60; Glucose Random 153 mg/dL (60-115); Lipase 37 U/L (8-78); Potassium 3.8 mmol/L (3.3-5.1); Sodium 141 mmol/L (135-145); Total Protein 6.6 g/dL (6.5-8.0)
[2023-11-12] MEDS: Lidocaine HCl 2 % Urojet 10 ML JEL.PF.APP TOPICAL ×2 (03:49)
--- NOTE | 2023-11-12 03:51 | ED_ITS ---
HPI - Abdominal Pain General Chief Complaint: Abdominal Pain Stated Complaint: GASTRIC DISTENSION Time Seen by Provider: 11/12/23 03:31 Source: patient Mode of arrival: EMS Limitations: no limitations and other (Deaf mute) History of Present Illness HPI narrative: Patient is deaf mute, interpretation through SALAS, Fijian sign language Patient comes to the emergency room complaining of right lower quadrant pain and urinary retention. Also, complaining of constipation. Patient states that all of his abdominal complaints started approximately 12 hours ago. Patient states that he has been retaining urine for almost 12 hours. Patient denies using narcotics for pain medications. Patient denies fever chills Related Data Home Medications Medication Instructions Recorded Confirmed aripiprazole 2 mg tablet (Abilify) 2 mg PO DAILY 07/27/21 07/27/21 duloxetine 30 mg capsule,delayed 30 mg PO DAILY 07/27/21 07/27/21 release duloxetine 60 mg capsule,delayed 60 mg PO DAILY 07/27/21 07/27/21 release zolpidem 10 mg tablet (Ambien) 10 mg PO BEDTIME PRN Insomnia 07/27/21 07/27/21 alfuzosin 10 mg tablet,extended 10 mg PO QAM 08/12/23 08/12/23 release 24 hr famotidine 20 mg tablet 20 mg PO BID 11/10/23 11/10/23 ondansetron HCl 4 mg tablet 4 mg PO Q8H PRN nausea/vomiting 11/10/23 11/10/23 sucralfate 1 gram tablet 1 g PO QID 11/10/23 11/10/23 Previous Rx's Medication Instructions Recorded amlodipine 2.5 mg tablet 2.5 mg PO DAILY #30 tabs 07/30/21 aspirin 81 mg chewable tablet 81 mg PO DAILY #30 tabs 07/30/21 atorvastatin 40 mg tablet 40 mg PO BEDTIME #30 tabs 07/30/21 prednisone 20 mg tablet 40 mg (2 x 20 mg) PO DAILY #4 tabs 07/30/21 oxycodone 5 mg tablet 5 mg PO Q8H PRN pain #4 tabs 10/14/23 polyethylene glycol 3350 17 17 g PO BID #238 grams 11/12/23 gram/dose oral powder (Miralax) tamsulosin 0.4 mg capsule (Flomax) 0.4 mg PO BEDTIME #20 caps 11/12/23 Allergies Allergy/AdvReac Type Severity Reaction Status Date / Time No Known Allergies Allergy Verified 11/12/23 02:12 [No Known Allergies*] Review of Systems Review of Systems Constitutional : No Weight loss, No Fever, No Chills, No Night Sweats, No Fatigue, No Malaise ENT/Mouth : No Hearing loss, No Ear Pain, No Nasal Congestion, No Sinus Pain, No Hoarseness, No sore throat, No Rhinorrhea, No Swallowing Difficulty Eyes: No Eye Pain, No Swelling, No Redness, No Foreign Body, No Discharge, No Vision Changes Cardiovascular : No Chest Pain, No SOB, No Dyspnea on Exertion, No Orthopnea, No Edema, No Palpitations Respiratory : No Cough, No Sputum, No Wheezing, No Smoke Exposure, No Dyspnea Gastrointestinal : No Nausea, No Vomiting, No Diarrhea, complaining of constipation, abdominal distension, and suprapubic pressure. Also complaining of right lower quadrant pain Genitourinary : no irregular bleeding, No Dysuria, No Urinary Frequency, No Hematuria, No Urinary Incontinence, No Urgency, No Flank Pain, No Urinary Flow Changes, No Hesitancy Musculoskeletal : No joint pain, No Myalgias, No Joint Swelling Skin : No Skin Lesions, No rash Neuro : No Weakness, No Numbness, No Paresthesias, No Loss of Consciousness, No Dizziness, No Headache Psych : No Anxiety/Panic, No Depression, No SI/HI/AH/VH, No Social Issues, Heme/Lymph: No Bruising, No Bleeding,No Lymphadenopathy Endocrine : No Polyuria, No Polydipsia, No Temperature Intolerance [facility] Past Medical History Medical History Personality disorder 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 Asthma Gender dysphoria Bradycardia Renal calculi Degenerative disc disease, lumbar Lumbar spinal stenosis Hearing impaired Hypertension Depression Surgical History (Updated 11/10/23 @ 16:53 by Nuvia Jenkins RN) H/O cervical spine surgery History of esophagogastroduodenoscopy (EGD) H/O colonoscopy Family History Family History Other No known health problems Social History Social History Household Members Other:: roommate Are you a primary ocular care aide to a significant other at home: No Do you presently have visiting nurse or other home services: No Alcohol intake: never Comment: overflow Patient Tobacco Use Status: Never used Tobacco Smoked in Last 30 Days: No Use of substances other than those prescribed or required for medical reasons: No Any prior treatment program specific to substance use: No Advance Directives: No Advance Directives Information Provided: No Current occupational status: disabled Current occupation: right handed Physical Exam ED Vital Signs: Vital Signs - 24 hr 11/12/23 02:12 11/12/23 02:38 11/12/23 05:25 Temperature 97.1 F 97.6 F 98.9 F Pulse Rate 65 48 L 72 Respiratory Rate 22 H 18 14 Blood Pressure 119/56 L 174/102 H 148/87 H Pulse Oximetry 94 100 96 Oxygen Delivery Method Room Air Room Air Room Air BMI result Body Mass Index 34.7 Const Other: Appearance: Alert. Oriented X3. No acute distress. Eyes: Pupils equal, round and reactive to light. ENT: Pharynx normal. Neck: Normal inspection. Neck supple. No lymph nodes noted. No crepitus CVS: Normal heart rate and rhythm. Pulses normal. Normal S1 and S2 Respiratory: No respiratory distress. Breath sounds normal. No Wheezing. No rales Abdomen: Soft , suprapubic discomfort, right lower quadrant pain on palpation, mild rebound, no guarding. Bladder scan shows greater than 600 mL of urine in the bladder Skin: Skin warm and dry. Normal skin color. Normal skin turgor. Extremities: No lower extremity edema. No Lacerations. No Rash Neuro: Oriented X 3. No motor deficit. No sensory deficit. Moving all extremities. No slurred speech. CN 2 through 12 grossly intact Psych: calm, cooperative, normal affect Course Course Course Narrative: -patient has more than 600 mL of urine in the bladder, patient is unable to urinate. Patient's nurse attempted inserting a Henry catheter without success. Coude was inserted in more than 800 mL of urine were drained. -patient feels better. However the coming of right lower quadrant pain, we will go ahead and order the CT scan. -also, patient complaining of constipation, patient may need an enema Medical Decision Making Medical Decision Making MDM Narrative: -Henry catheter inserted, patient drained over 800 cc of urine -my interpretation of labs: Hematology at baseline, chemistry at baseline, LFTs within normal limits, lipase normal, urine shows no abnormality. Trace leukocyte esterase, no dysuria or hematuria, antibiotics is not indicated. -my interpretation of CT scan, constipation. -radiology report: No acute intra-abdominal pathology -patient received 1 Fleet enema -patient instructed to follow-up with Urology in 48 hours or return to the emergency room for Henry catheter removal Differential Diagnosis Differential Diagnoses: The differential diagnosis associated with the presentation includes (Urine retention, constipation, SBO, appendicitis) Admission/Observation Consideration of admission/observation: Escalation of care including admission/observation considered (Given patient's symptoms, admission considered) Lab Data MDM Lab Attestation statement: I reviewed the patient's lab results. 11/12/23 02:30 11/12/23 02:30 Labs: Lab Results 11/12/23 11/12/23 Range/Units 02:30 03:51 WBC 7.9 (4.8-10.8) X10*3/uL RBC 4.42 L (4.60-5.80) X10*6/uL Hgb 13.4 L (14.0-18.0) g/dl Hct 38.3 L (42.0-52.0) % MCV 86.7 (80.0-98.0) fL MCH 30.3 (27.0-33.0) pg MCHC 35.0 (31.0-36.0) g/dl RDW 13.0 (11.0-16.0) % Plt Count 167 (160-400) X10*3/uL MPV 10.3 (9.4-12.4) fL Absolute Nucleated RBC 0.000 (0.0-0.012) X10*3/uL Nucleated RBC % (auto) 0.0 (0.0-0.2) /100WBC Sodium 141 (135-145) mmol/L Potassium 3.8 (3.3-5.1) mmol/L Chloride 109 H (96-108) mmol/L Carbon Dioxide 22 (22-29) mmol/L Anion Gap 14 (12-20) BUN 23 H (9-16) mg/dL Creatinine 0.96 (0.5-1.4) mg/dL Estim Creat Clear Calc 78.3 Estimated GFR > 60 Random Glucose 153 H (60-115) mg/dL Calcium 8.9 D (8.4-10.2) mg/dL Total Bilirubin 0.4 (0.0-1.0) mg/dL AST 16 (5-37) U/L ALT 19 (0-40) U/L Alkaline Phosphatase 62 (39-117) U/L Total Protein 6.6 (6.5-8.0) g/dL Albumin 3.8 (3.5-5.0) g/dL Lipase 37 (8-78) U/L Urine Color Yellow Urine Appearance Clear Urine pH 6.0 (5.0-9.0) Ur Specific [place] 1.020 (1.005-1.025) Urine Protein Negative (Neg-Trace) mg/dL Urine Glucose (UA) Negative (Negative) mg/dL Urine Ketones Trace (Negative) mg/dL Urine Blood Negative (Negative) Urine Nitrite Negative (Negative) Ur Leukocyte Esterase Trace H (Negative) Urine RBC 0-2 (0-2) /HPF Urine WBC 0-5 (0-5) /HPF Ur Squamous Epith Cells 0-2 (0-2) /HPF Urine Bacteria None Seen (None Seen) Hyaline Casts 0-2 (0-2) /LPF Independent Interpretation I performed an independent interpretation of an: CT Scan Radiology Impression Discussion of test interpretation with radiology: I have reviewed the radiologist's reading. Radiologist Impression: FINDINGS: LUNG BASES: The visualized lung bases are unremarkable. LIVER, GALLBLADDER, AND BILIARY TREE: The liver is normal in size, shape, and attenuation. No focal hepatic lesion or biliary ductal dilatation is present. There has been a prior cholecystectomy. PANCREAS: Unremarkable. SPLEEN: Unremarkable. ADRENAL GLANDS: Unremarkable. KIDNEYS AND URETERS: The kidneys are normal in size, shape, and attenuation. No hydronephrosis, hydroureter, or calculi seen. No perinephric stranding. BLADDER: There is a Henry catheter in place decompressing the urinary bladder. GASTROINTESTINAL TRACT: There is retained stool. The appendix is visualized and is within normal limits. ABDOMINAL WALL: There are bilateral small inguinal hernias containing fat. LYMPH NODES: Normal. VASCULAR: Atherosclerotic plaque of the abdominal aorta. PELVIC VISCERA: Unremarkable. OSSEOUS STRUCTURES: There is diffuse thoracolumbar disc degenerative change with multilevel spinal canal narrowing. CT/CT abdomen pelvis w IV con IMPRESSION: No acute intra-abdominal pathology. Retained stool. Thoracolumbar disc degenerative change. Fleischner guidelines were followed. Medications Administered Discontinued Medications Generic Name Dose Route Start Last Admin Trade Name Natalia PRN Reason Stop Dose Admin Iohexol 85 ml 11/12/23 04:05 11/12/23 04:07 Iohexol 350 Mg/Ml 100 Ml Infus..Btl IV 11/12/23 04:06 85 ml ONCE ONE Administration Lidocaine HCl 10 ml 11/12/23 03:25 11/12/23 03:49 Lidocaine Hcl 2 % Urojet 10 Ml Jel.Pf.Tarah TOPICAL 11/12/23 03:26 10 ml ONCE ONE Administration Lidocaine HCl 10 ml 11/12/23 03:28 11/12/23 03:49 Lidocaine Hcl 2 % Urojet 10 Ml Jel.Pf.Tarah TOPICAL 11/12/23 03:29 10 ml ONCE ONE Administration Critical Care Time Critical Care Time Critical Care Time: Yes Total Critical Care Time: 45 Attestation: I have personally provided critical care time. Time includes review of lab data, radiology results, discussion with consultants, and monitoring for potential decompensation. Intervention performed as documented. Discharge Plan Discharge Clinical Impression: Acute urinary retention, Abdominal pain, Constipation Patient Disposition: Home, Self-Care Instructions: Constipation (ED), Urinary Retention in Men (ED), Henry Catheter Placement and Care (ED) Additional Instructions: Your Henry catheter needs to be removed in 48 hours. Please follow-up with your urologist, primary care physician or return to the emergency room. Please follow-up with your primary care physician tomorrow. If you have any worsening or new symptoms, please return to the emergency room or call 911 Prescriptions: New tamsulosin [Flomax] 0.4 mg capsule 0.4 mg PO BEDTIME Qty: 20 0RF polyethylene glycol 3350 [Miralax] 17 gram/dose powder 17 g PO BID Qty: 238 0RF No Action zolpidem [Ambien] 10 mg Tablet 10 mg PO BEDTIME PRN (Reason: Insomnia) duloxetine 30 mg Capsule,Delayed Release(Dr/Ec) 30 mg PO DAILY duloxetine 60 mg Capsule,Delayed Release(Dr/Ec) 60 mg PO DAILY aripiprazole [Abilify] 2 mg Tablet 2 mg PO DAILY atorvastatin 40 mg Tablet 40 mg PO BEDTIME Qty: 30 0RF amlodipine 2.5 mg Tablet 2.5 mg PO DAILY Qty: 30 0RF Protocol: Hold for SBP< HOLD for SBP < : 90 aspirin 81 mg Tablet,Chewable 81 mg PO DAILY Qty: 30 0RF prednisone 20 mg tablet 40 mg PO DAILY Qty: 4 0RF sucralfate 1 gram tablet 1 g PO QID ondansetron HCl 4 mg tablet 4 mg PO Q8H PRN (Reason: nausea/vomiting) famotidine 20 mg tablet 20 mg PO BID alfuzosin 10 mg tablet extended release 24 hr 10 mg PO QAM oxycodone 5 mg tablet 5 mg PO Q8H PRN (Reason: pain) Qty: 4 0RF Rx Instructions: Partial Fill upon patient request.
--- NOTE | 2023-11-12 03:55 | PC.NURSE ---
made aware of Bladder scan. ordered for rondon cath. This RN attempted to place rondon cath but was unsuccessful. made aware and gave verbal order for coude and 2 urojets. ablet to successfully place coude catheter, good urine flow. UA sent to lab.
[2023-11-12 04:00] LABS: Appearance Urine Clear; Color Urine Yellow; Glucose Urine UA Negative (Negative); Leukocyte Esterase Urine Trace (Negative); Nitrite Urine Negative (Negative); UMIC TRIGGER UACC YES; Urine Blood Negative (Negative); Urine Ketones Trace mg/dL (Negative); Urine Protein Negative (Neg-Trace)
[2023-11-12 04:06] LABS: Bacteria Urine None Seen (None Seen); Hyaline Casts Urine 0-2 /LPF (0-2); RBC Urine 0-2 /HPF (0-2); Squamous Epithelial Cell Urine 0-2 /HPF (0-2); WBC Urine 0-5 /HPF (0-5)
[2023-11-12] MEDS: iohexoL 350 MG/ML 100 ML INFUS..BTL 85 ML IV (04:07)
[2023-11-12 05:25] VITALS: BP 148/87; PULSE 72; RESP 14; TEMP 37.2; O2SAT 96
[2023-11-12] MEDS: Sodium Phosphate,Mono-Dibasic 133 ML ENEMA PR (07:09)
--- NOTE | 2023-11-12 07:22 | PC.NURSE ---
Pt tolerated fleet enema well.
[2023-11-12 08:46] VITALS: BP 144/69; PULSE 55; RESP 18; TEMP 36.6; O2SAT 98
[2023-11-12 08:48] VITALS: BP 144/69; PULSE 55; RESP 18; TEMP 36.6; O2SAT 98
== END 2023-11-12 09:36 | disposition home or self-care (01) ==
PROVIDERS: Emergency Provider Emergency Medicine
DX: R10.31 Right lower quadrant pain (principal); R33.9 Retention of urine, unspecified; K59.00 Constipation, unspecified; I10 Essential (primary) hypertension; J45.909 Unspecified asthma, uncomplicated
CPT/HCPCS: 36415; 74177; 80053; 81001; 81003; 83690; 85027; 99284; Q9967

== ENCOUNTER 2023-11-12 20:26 | Emergency (ER) | payer OTHER, SELFPAY ==
[2023-11-12 20:42] VITALS: BP 142/92; PULSE 60
[2023-11-12 21:02] VITALS: TEMP 36.8
[2023-11-12 21:26] VITALS: BP 118/52; PULSE 58; RESP 20; O2SAT 100
--- NOTE | 2023-11-12 22:53 | ED.MALEGU ---
HPI - Male Genitourinary General Chief complaint: Abdominal Pain Stated complaint: catheter, abd pain Time Seen by Provider: 11/12/23 21:55 Source: patient Mode of arrival: ambulatory Limitations: other (ASL sign language) History of Present Illness HPI Narrative: Patient is status post Henry catheter for acute retention yesterday comes here RN noticed that Henry catheter was kinked when unkinked the Henry catheter patient was able to urinate patient does not have any history of chronic prostate problems does not want a Henry catheter to be in place Related Data Home Medications Medication Instructions Recorded Confirmed aripiprazole 2 mg tablet (Abilify) 2 mg PO DAILY 07/27/21 07/27/21 duloxetine 30 mg capsule,delayed 30 mg PO DAILY 07/27/21 07/27/21 release duloxetine 60 mg capsule,delayed 60 mg PO DAILY 07/27/21 07/27/21 release zolpidem 10 mg tablet (Ambien) 10 mg PO BEDTIME PRN Insomnia 07/27/21 07/27/21 alfuzosin 10 mg tablet,extended 10 mg PO QAM 08/12/23 08/12/23 release 24 hr famotidine 20 mg tablet 20 mg PO BID 11/10/23 11/10/23 ondansetron HCl 4 mg tablet 4 mg PO Q8H PRN nausea/vomiting 11/10/23 11/10/23 sucralfate 1 gram tablet 1 g PO QID 11/10/23 11/10/23 Previous Rx's Medication Instructions Recorded amlodipine 2.5 mg tablet 2.5 mg PO DAILY #30 tabs 07/30/21 aspirin 81 mg chewable tablet 81 mg PO DAILY #30 tabs 07/30/21 atorvastatin 40 mg tablet 40 mg PO BEDTIME #30 tabs 07/30/21 prednisone 20 mg tablet 40 mg (2 x 20 mg) PO DAILY #4 tabs 07/30/21 oxycodone 5 mg tablet 5 mg PO Q8H PRN pain #4 tabs 10/14/23 polyethylene glycol 3350 17 17 g PO BID #238 grams 11/12/23 gram/dose oral powder (Miralax) tamsulosin 0.4 mg capsule (Flomax) 0.4 mg PO BEDTIME #20 caps 11/12/23 Allergies Allergy/AdvReac Type Severity Reaction Status Date / Time No Known Allergies Allergy Verified 11/12/23 20:47 [No Known Allergies*] Review of Systems Review of Systems: Yes all other systems are reviewed and are negative [facility] Past Medical History Medical History Personality disorder 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 Asthma Gender dysphoria Bradycardia Renal calculi Degenerative disc disease, lumbar Lumbar spinal stenosis Hearing impaired Hypertension Depression Surgical History H/O cervical spine surgery History of esophagogastroduodenoscopy (EGD) H/O colonoscopy Family History Family History Other No known health problems Social History Social History Household Members Other:: roommate Are you a primary animal care provider to a significant other at home: No Do you presently have visiting nurse or other home services: No Alcohol intake: never Comment: overflow Patient Tobacco Use Status: Never used Tobacco Smoked in Last 30 Days: No Use of substances other than those prescribed or required for medical reasons: No Advance Directives: No Advance Directives Information Provided: No Current occupational status: disabled Current occupation: right handed Physical Exam Vital Signs: Vital Signs: Last Vital Signs Temp 98.2 F 11/12/23 23:13 Pulse 57 11/12/23 23:13 Resp 20 11/12/23 23:13 BP 128/67 11/12/23 23:13 Pulse Ox 98 11/12/23 23:13 O2 Del Method Room Air 11/12/23 23:10 BMI result Body Mass Index 30.0 Appearance: Alert. Sign language was used ENT: Pharynx normal. Oral Mucosa moist Neck: Normal inspection. Neck supple. CVS: Normal heart rate and rhythm. Pulses normal. Respiratory: No respiratory distress. Equal air entry bilateral, no wheezing/rales/rhonchi Abdomen: Soft and nontender. Bowel sounds are present, no mass palpable, no CVA tenderness Skin: Skin warm and dry. Normal skin color. Normal skin turgor. Extremities: No lower extremity edema. No calf tenderness Neuro: Oriented X 3. Medical Decision Making Medical Decision Making MDM Narrative: Patient with Henry catheter which was placed for acute retention patient does not want Henry catheter, prefer it to be removed, which was removed bladder scan was showing no urine rectal exam showed slightly enlarged prostate was given Flomax yesterday will advised to continue and follow with urologist as scheduled Discharge Plan Discharge Clinical Impression: Complication of Henry catheter, Encounter for Henry catheter removal Patient Disposition: Home, Self-Care Instructions: Henry Catheter Removal (DC) Additional Instructions: You have slightly enlarged prostate and constipation that the cause for acute urinary retention Continue stool softener and continue Flomax Drink plenty of fluids Report to the ER if acute urinary retention again Prescriptions: No Action zolpidem [Ambien] 10 mg Tablet 10 mg PO BEDTIME PRN (Reason: Insomnia) duloxetine 30 mg Capsule,Delayed Release(Dr/Ec) 30 mg PO DAILY duloxetine 60 mg Capsule,Delayed Release(Dr/Ec) 60 mg PO DAILY aripiprazole [Abilify] 2 mg Tablet 2 mg PO DAILY atorvastatin 40 mg Tablet 40 mg PO BEDTIME Qty: 30 0RF amlodipine 2.5 mg Tablet 2.5 mg PO DAILY Qty: 30 0RF Protocol: Hold for SBP< HOLD for SBP < : 90 aspirin 81 mg Tablet,Chewable 81 mg PO DAILY Qty: 30 0RF prednisone 20 mg tablet 40 mg PO DAILY Qty: 4 0RF sucralfate 1 gram tablet 1 g PO QID ondansetron HCl 4 mg tablet 4 mg PO Q8H PRN (Reason: nausea/vomiting) famotidine 20 mg tablet 20 mg PO BID alfuzosin 10 mg tablet extended release 24 hr 10 mg PO QAM oxycodone 5 mg tablet 5 mg PO Q8H PRN (Reason: pain) Qty: 4 0RF Rx Instructions: Partial Fill upon patient request. tamsulosin [Flomax] 0.4 mg capsule 0.4 mg PO BEDTIME Qty: 20 0RF polyethylene glycol 3350 [Miralax] 17 gram/dose powder 17 g PO BID Qty: 238 0RF Interventions: ED Discharge Assessment Last Done: 11/12/23 23:13 Discharge Date/Time: 11/12/23 23:15
--- NOTE | 2023-11-12 22:59 | PC.NURSE ---
As charted in bladder scan, rondon catheter removed by provider.
[2023-11-12 23:10] VITALS: BP 128/67; PULSE 57; RESP 20; O2SAT 98
[2023-11-12 23:13] VITALS: BP 128/67; PULSE 57; RESP 20; TEMP 36.8; O2SAT 98
== END 2023-11-12 23:15 | disposition home or self-care (01) ==
PROVIDERS: Emergency Provider Internal Medicine
DX: T83.098A Other mechanical complication of other urinary catheter, initial encounter (principal); Y73.1 Therapeutic (nonsurgical) and rehabilitative gastroenterology and urology devices associated with adverse incidents; Y92.9 Unspecified place or not applicable; N40.1 Benign prostatic hyperplasia with lower urinary tract symptoms; R33.8 Other retention of urine; I10 Essential (primary) hypertension; J45.909 Unspecified asthma, uncomplicated
CPT/HCPCS: 36415; 74177; 80053; 81001; 83690; 85027; 99283; 99284; Q9967

== ENCOUNTER 2023-11-15 05:02 | Emergency (ER) | payer OTHER, SELFPAY ==
[2023-11-15 05:13] VITALS: BP 144/66; PULSE 96; RESP 18; TEMP 38.1; O2SAT 92
[2023-11-15 05:21] VITALS: BP 144/60; PULSE 92; RESP 12; TEMP 38.1; O2SAT 96; BMI 48.3
--- NOTE | 2023-11-15 05:25 | PC.NURSE ---
Pt presents to ED via EMS with complaints of pain while urinating starting yesterday. Pt reports urine has a strong odor and pain has been radiating into the abdomen. Pt reported he has also been taking miralax and tamsulosin at home, thinks that may have affected something. Pt was bladder scanned upon arrival, resulting in 192mL. Pt has been voiding on his own and was able to provide a sample. Sample and bloodwork collected and sent to lab. Pt pending ED provider at this time.
[2023-11-15 05:30] LABS: Basophils Percent Auto 0.1 % (0-2); Eosinophils Absolute Auto 0.1 X10*3/uL (0.0-0.4); Eosinophils Percent Auto 0.7 % (0-4); Hematocrit 39.6 % (42.0-52.0); Hemoglobin 13.7 g/dl (14.0-18.0); Imm Gran Abs Auto 0.07 X10*3/uL (0.00-0.03); Imm Gran Pct Auto 0.5 % (0.0-0.4); Lymphocytes Absolute Auto 0.8 X10*3/uL (1.2-4.9); Lymphocytes Percent Auto 5.9 % (20-40); MANUAL DIFF FLAG NO; Mean Corpuscular HGB Conc 34.6 g/dl (31.0-36.0); Mean Corpuscular Hemoglobin 30.2 pg (27.0-33.0); Mean Corpuscular Volume 87.2 fL (80.0-98.0); Mean Platelet Volume 10.3 fL (9.4-12.4); Monocytes Percent Auto 7.2 % (2-11); Neutrophils Absolute Auto 12.1 x10*3/uL (2.0-8.3); Neutrophils Percent Auto 85.6 % (45-73); Platelet Count 150 X10*3/uL (160-400); Red Blood Count 4.54 X10*6/uL (4.60-5.80); Red Cell Distribution Width 12.8 % (11.0-16.0); White Blood Count 14.1 X10*3/uL (4.8-10.8)
[2023-11-15] MEDS: Acetaminophen 325 MG TABLET 650 MG PO (05:36)
[2023-11-15 05:37] LABS: Appearance Urine Turbid; Color Urine Yellow; Glucose Urine UA Negative (Negative); Leukocyte Esterase Urine Large (3+) (Negative); Nitrite Urine Negative (Negative); PH 7.5 (5.0-9.0); UMIC TRIGGER UACC YES; Urine Blood Large (3+) (Negative); Urine Ketones Negative (Negative); Urine Protein 100 (2+) mg/dL (Neg-Trace)
[2023-11-15 05:45] LABS: Bacteria Urine 4+ (None Seen); RBC Urine >20 /HPF (0-2); Squamous Epithelial Cell Urine 0-2 /HPF (0-2); UACC Culture Trigger YES; WBC Clumps Urine Present; WBC Urine >50 /HPF (0-5)
[2023-11-15 05:50] LABS: Alanine Aminotransferase 16 U/L (0-40); Albumin Level 3.8 g/dL (3.5-5.0); Alkaline Phosphatase 60 U/L (39-117); Anion Gap 11 (12-20); Aspartate Amino Transferase 14 U/L (5-37); Bilirubin Total 1.1 mg/dL (0.0-1.0); Blood Urea Nitrogen 15 mg/dL (9-16); Carbon Dioxide 21 mmol/L (22-29); Chloride 110 mmol/L (96-108); Creatinine Clr Calc Pharmacy 55.4; Estimated Glomerular Filt Rate > 60; Glucose Random 144 mg/dL (60-115); Potassium 4.1 mmol/L (3.3-5.1); Sodium 138 mmol/L (135-145); Total Protein 6.8 g/dL (6.5-8.0)
[2023-11-15 06:01] LABS: Lactic Acid 0.9 mmol/L (0.5-2.0)
--- NOTE | 2023-11-15 06:28 | ED.MALEGU ---
HPI - Male Genitourinary General Chief complaint: Urogenital-Male Stated complaint: abd pain Time Seen by Provider: 11/15/23 06:27 Source: patient, family and buffet waiter/waitress Mode of arrival: ambulatory Limitations: language barrier History of Present Illness HPI Narrative: Patient is a 63-year-old hearing impaired male who uses ASL for interpretation with history of NSTEMI, recent urinary retention presenting to the emergency department with complaint of lower abdominal pain, chills, urinary frequency, occasional episodes of urinary incontinence, and foul smelling urine. He was seen in this ED on 11/11 and had indwelling catheter placed for urinary retention. Patient later returned the same day requesting that catheter be removed due to discomfort. States since that time symptoms have worsened. Patient was also prescribed MiraLax at that visit and reports that bowel movements have returned to normal. Denies back or flank pain. Denies nausea or vomiting. Patient states has seen a urologist in the past but was told everything is fine, has appointment with PCP on 11/18. MD Complaint: dysuria Onset (ago): day(s) Duration: progressively worsening Location: abdomen Severity: moderate Quality: aching Relieving factors: none Exacerbating factors: urination Context: indwelling catheter (recently placed then removed) Associated symptoms: Reports dysuria and incontinence Related Data Home Medications ?Medication ?Instructions ?Recorded ?Confirmed aripiprazole 2 mg tablet (Abilify) 2 mg PO DAILY 07/27/21 07/27/21 duloxetine 30 mg capsule,delayed 30 mg PO DAILY 07/27/21 07/27/21 release duloxetine 60 mg capsule,delayed 60 mg PO DAILY 07/27/21 07/27/21 release zolpidem 10 mg tablet (Ambien) 10 mg PO BEDTIME PRN Insomnia 07/27/21 07/27/21 alfuzosin 10 mg tablet,extended 10 mg PO QAM 08/12/23 08/12/23 release 24 hr famotidine 20 mg tablet 20 mg PO BID 11/10/23 11/10/23 ondansetron HCl 4 mg tablet 4 mg PO Q8H PRN nausea/vomiting 11/10/23 11/10/23 sucralfate 1 gram tablet 1 g PO QID 11/10/23 11/10/23 Previous Rx's ?Medication ?Instructions ?Recorded amlodipine 2.5 mg tablet 2.5 mg PO DAILY #30 tabs 07/30/21 aspirin 81 mg chewable tablet 81 mg PO DAILY #30 tabs 07/30/21 atorvastatin 40 mg tablet 40 mg PO BEDTIME #30 tabs 07/30/21 prednisone 20 mg tablet 40 mg (2 x 20 mg) PO DAILY #4 tabs 07/30/21 oxycodone 5 mg tablet 5 mg PO Q8H PRN pain #4 tabs 10/14/23 polyethylene glycol 3350 17 17 g PO BID #238 grams 11/12/23 gram/dose oral powder (Miralax) tamsulosin 0.4 mg capsule (Flomax) 0.4 mg PO BEDTIME #20 caps 11/12/23 cefpodoxime 200 mg tablet 200 mg PO BID #28 tabs 11/15/23 Allergies Allergy/AdvReac Type Severity Reaction Status Date / Time No Known Allergies Allergy Verified 11/15/23 05:23 [No Known Allergies*] Review of Systems Review of Systems: As per HPI. Yes all other systems are reviewed and are negative Constitutional: Constitutional: Reports as per HPI [facility] Past Medical History Medical History Personality disorder 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 Asthma Gender dysphoria Bradycardia Renal calculi Degenerative disc disease, lumbar Lumbar spinal stenosis Hearing impaired Hypertension Depression Surgical History H/O cervical spine surgery History of esophagogastroduodenoscopy (EGD) H/O colonoscopy Family History Family History Other No known health problems Social History Social History Household Members Other:: roommate Are you a primary day care worker to a significant other at home: No Do you presently have visiting nurse or other home services: No Alcohol intake: never Comment: overflow Patient Tobacco Use Status: Never used Tobacco Smoked in Last 30 Days: No Use of substances other than those prescribed or required for medical reasons: No Advance Directives: No Advance Directives Information Provided: Yes Current occupational status: disabled Current occupation: right handed Physical Exam Vital Signs: Vital Signs: Last Vital Signs Temp 100.6 F H 11/15/23 05:21 Pulse 92 11/15/23 05:21 Resp 12 11/15/23 05:21 BP 144/60 H 11/15/23 05:21 Pulse Ox 96 11/15/23 05:21 O2 Del Method Room Air 11/15/23 05:21 BMI result Body Mass Index 48.3 Vital signs have been reviewed and appear to be correct. Blood pressure normal. Heart rate normal. Respiratory rate normal. Temperature febrile. Oxygen saturation normal. Const: General: cooperative, healthy appearing and no acute distress Orientation/consciousness: oriented to person, oriented to place, oriented to time and patient oriented x3 Limitations: no limitations HEENT: Head: Yes normocephalic and Yes atraumatic Ears: external ears normal General nose exam: Normal external nose present Face and sinus: Yes face symmetric Mouth: oropharynx normal and moist mucous membranes Throat: Yes uvula midline Eyes: Pupils: Equal, round and reactive pupils present Neck: Neck: Yes normal visual inspection and Yes supple Resp: Effort & Inspection: normal respiratory effort and able to speak in complete sentences Auscultation: clear to auscultation bilaterally Cardio: Rate: regular rate Rhythm: regular rhythm Heart sounds: S1 normal heart sound present and S2 normal heart sound present GI: Palpation (GI): Soft to palpation and nontender Auscultation: normoactive bowel sounds : General: Yes no CVA tenderness Back/Spine/Pelvis: Back: no CVA tenderness Skin: General skin exam: elasticity normal and turgor normal Neuro: General: oriented to person, oriented to place, oriented to time, patient oriented x3, moves all extremities, no focal motor deficits and CN's II-XI intact bilaterally Cranial nerves: Yes Equal, round and reactive pupils present Cognition (Neuro): normal cognition Extrem: General: Yes full ROM, Yes no pedal edema and Yes no calf tenderness Psych: Mental Status: mental status grossly normal Affect: normal affect Thought process: Normal thought process present Medications Administered Discontinued Medications Generic Name Dose Route Start Last Admin Trade Name Freq PRN Reason Stop Dose Admin Acetaminophen 650 mg 11/15/23 05:32 11/15/23 05:36 Acetaminophen 325 Mg Tablet PO 11/15/23 05:33 650 mg ONCE ONE Administration Ceftriaxone Sodium 1 gm/ 50 mls @ 100 mls/hr 11/15/23 07:09 11/15/23 07:36 Sodium Chloride IV 11/15/23 07:38 100 mls/hr ONCE ONE Administration Medical Decision Making Medical Decision Making [facility] Narrative: Patient is a 63-year-old hearing impaired male who uses ASL for interpretation with history of NSTEMI, recent urinary retention presenting to the emergency department with complaint of lower abdominal pain, chills, urinary frequency, occasional episodes of urinary incontinence, and foul smelling urine. Patient assessed with nanoRETEphoto technologist. On exam patient is awake, A+Ox3, VS WNL, afebrile, normal neurological exam without focal deficits, physical exam findings as above. Given reported symptoms and physical exam findings, initial differential includes UTI, pyelonephritis. Labs notable for leukocytosis, no evidnce of CHELO or impaired renal function, normal lactic. Urinalysis notable for 3+ leukocytes, >50WBCs, 4+ bacteria, WBC clumps present, 0-2 epithelial cells. These findings are consistent with pyelonephritis. Do not suspect sepsis @ 7:22. Patient had CT A/P on 11/11 which did not show any renal or ureteral calculi, do not suspect obstruction. Do not feel additional imaging is indicated at this time. Will treat patient with one dose of IV ceftriaxone here and feel patient is stable for discharge home on PO antibiotics. Will refer to urology for ongoing management or urinary retention. Strict return precautions discussed at bedside via buffet waiter/waitress. Patient understanding of and agreeable to plan of care. Differential Diagnosis Differential Diagnoses: The differential diagnosis associated with the presentation includes As per MDM. Admission/Observation Consideration of admission/observation: Escalation of care including admission/observation considered Patient would have been admitted to the hospital had their work up had any findings where hospital admission was appropriate and their clinical presentation warranted hospital admission. Lab Data [facility] Lab Attestation statement: I reviewed the patient's lab results. Patient would have been admitted to the hospital had their work up had any findings where hospital admission was appropriate and their clinical presentation warranted hospital admission. 11/15/23 05:25 11/15/23 05:25 Labs: Lab Results 11/15/23 11/15/23 11/15/23 Range/Units 05:25 05:32 05:46 WBC 14.1 H (4.8-10.8) X10*3/uL RBC 4.54 L (4.60-5.80) X10*6/uL Hgb 13.7 L (14.0-18.0) g/dl Hct 39.6 L (42.0-52.0) % MCV 87.2 (80.0-98.0) fL MCH 30.2 (27.0-33.0) pg MCHC 34.6 (31.0-36.0) g/dl RDW 12.8 (11.0-16.0) % Plt Count 150 L (160-400) X10*3/uL MPV 10.3 (9.4-12.4) fL Immature Gran % (Auto) 0.5 H (0.0-0.4) % Neut % (Auto) 85.6 H (45-73) % Lymph % (Auto) 5.9 L (20-40) % [place] % (Auto) 7.2 (2-11) % Eos % (Auto) 0.7 (0-4) % Baso % (Auto) 0.1 (0-2) % Lymph # (Auto) 0.8 L (1.2-4.9) X10*3/uL [place] # (Auto) 1.0 (0.1-1.2) X10*3/uL Eos # (Auto) 0.1 (0.0-0.4) X10*3/uL Baso # (Auto) 0.0 (0.0-0.2) X10*3/uL Abs Immat Gran (auto) 0.07 H (0.00-0.03) X10*3/uL Absolute Neuts (auto) 12.1 H (2.0-8.3) x10*3/uL Absolute Nucleated RBC 0.000 (0.0-0.012) X10*3/uL Nucleated RBC % (auto) 0.0 (0.0-0.2) /100WBC Sodium 138 (135-145) mmol/L Potassium 4.1 (3.3-5.1) mmol/L Chloride 110 H (96-108) mmol/L Carbon Dioxide 21 L (22-29) mmol/L Anion Gap 11 L (12-20) BUN 15 (9-16) mg/dL Creatinine 1.04 (0.5-1.4) mg/dL Estim Creat Clear Calc 55.4 Estimated GFR > 60 Random Glucose 144 H (60-115) mg/dL Lactic Acid 0.9 (0.5-2.0) mmol/L Calcium 9.0 (8.4-10.2) mg/dL Total Bilirubin 1.1 H (0.0-1.0) mg/dL AST 14 (5-37) U/L ALT 16 (0-40) U/L Alkaline Phosphatase 60 (39-117) U/L Total Protein 6.8 (6.5-8.0) g/dL Albumin 3.8 (3.5-5.0) g/dL Urine Color Yellow Urine Appearance Turbid Urine pH 7.5 (5.0-9.0) Ur Specific [place] 1.020 (1.005-1.025) Urine Protein 100 (2+) H (Neg-Trace) mg/dL Urine Glucose (UA) Negative (Negative) mg/dL Urine Ketones Negative (Negative) mg/dL Urine Blood Large (3+) H (Negative) Urine Nitrite Negative (Negative) Ur Leukocyte Esterase Large (3+) H (Negative) Urine RBC >20 H (0-2) /HPF Urine WBC >50 H (0-5) /HPF Urine WBC Clumps Present Ur Squamous Epith Cells 0-2 (0-2) /HPF Urine Bacteria 4+ (None Seen) Hyaline Casts 6-10 (0-2) /LPF External Record Review External record reviewed: Inpatient record, Office record and Outpatient record Prescription Management I considered prescription management with: Antibiotic Discharge Plan Discharge Clinical Impression: Pyelonephritis Patient Disposition: Home, Self-Care Instructions: Kidney Infection (ED) Additional Instructions: You have been evaluated in the emergency department today for abdominal pain and urinary symptoms. Your evaluation, including urinalysis, suggests that your symptoms are due to a kidney infection, also called pyelonephritis. Please take your prescribed antibiotics for the full course of medication as directed. You are being referred to urology for further evaluation and management of your urinary symptoms. Please call their office to schedule an appointment. Please follow-up with your primary care provider within 2 days and keep your upcoming appointment. Return to the emergency department if you experience fevers 100.4? F or greater, worsening or uncontrolled pain, vomiting, flank pain, or for any other concerning symptoms. Prescriptions: New cefpodoxime 200 mg tablet 200 mg PO BID Qty: 28 0RF Rx Instructions: must administer with a meal/food No Action zolpidem [Ambien] 10 mg Tablet 10 mg PO BEDTIME PRN (Reason: Insomnia) duloxetine 30 mg Capsule,Delayed Release(Dr/Ec) 30 mg PO DAILY duloxetine 60 mg Capsule,Delayed Release(Dr/Ec) 60 mg PO DAILY aripiprazole [Abilify] 2 mg Tablet 2 mg PO DAILY atorvastatin 40 mg Tablet 40 mg PO BEDTIME Qty: 30 0RF amlodipine 2.5 mg Tablet 2.5 mg PO DAILY Qty: 30 0RF Protocol: Hold for SBP< HOLD for SBP < : 90 aspirin 81 mg Tablet,Chewable 81 mg PO DAILY Qty: 30 0RF prednisone 20 mg tablet 40 mg PO DAILY Qty: 4 0RF sucralfate 1 gram tablet 1 g PO QID ondansetron HCl 4 mg tablet 4 mg PO Q8H PRN (Reason: nausea/vomiting) famotidine 20 mg tablet 20 mg PO BID alfuzosin 10 mg tablet extended release 24 hr 10 mg PO QAM oxycodone 5 mg tablet 5 mg PO Q8H PRN (Reason: pain) Qty: 4 0RF Rx Instructions: Partial Fill upon patient request. tamsulosin [Flomax] 0.4 mg capsule 0.4 mg PO BEDTIME Qty: 20 0RF polyethylene glycol 3350 [Miralax] 17 gram/dose powder 17 g PO BID Qty: 238 0RF Referrals: [facility] [place] Urology Services [Provider Group] Print Language: [place] Sign Language
[2023-11-15] MEDS: cefTRIAXone sodium 1 GM in 0.9 % Sodium Chloride 50 ML IV (07:36)
--- NOTE | 2023-11-15 08:00 | PC.NURSE ---
20g iv in LAC stopped working. IV replaced by 22g in L hand. pt tolerated well. Abx started as documented.
--- NOTE | 2023-11-15 10:00 | PC.NURSE ---
PT MEDICALLY CLEARED FOR DISCHARGE. DISCHARGE INFORMATION REVIEWED WITH THE PT AND SIGNIFICANT OTHER USING THE SIGN LANGUAGE VIDEO TARGETING ACQUISITION OFFICER. THE PT'S SIGNIFICANT OTHER STATED THAT THEY NEEDED AN UBER/LYFT TO GET HOME BECAUSE HE CAN'T WALK OTHERWISE THEY CAN'T LEAVE. THE INSURANCE FOLLOW UP SPECIALIST RICH WAS NOTIFIED BY THE CHARGE NURSE FLORI. LYFT WAS PROVIDED BY AIRPORT GUIDE. PT WAS PROVIDED A W/C AND TRANSFERRED HIMSELF FROM BED TO CHAIR. HE WAS WHEELED OUT BY HIS SIGNIFICANT OTHER.
[2023-11-15 10:48] VITALS: BP 144/60; PULSE 92; RESP 12; TEMP -17.7; TEMP 0; O2SAT 96
== END 2023-11-15 10:51 | disposition home or self-care (01) ==
PROVIDERS: Emergency Provider Student in an Organized Health Care Education/Training Program
DX: N12 Tubulo-interstitial nephritis, not specified as acute or chronic (principal); R33.9 Retention of urine, unspecified; R30.0 Dysuria; Z79.899 Other long term (current) drug therapy
CPT/HCPCS: 36415; 51798; 80053; 81001; 83605; 85025; 87040; 87086; 87088; 87186; 96365; 99284; 99285; J0696

== ENCOUNTER 2023-11-19 18:10 | Outpatient (REF) | payer OTHER, SELFPAY ==
[2023-11-19 18:16] LABS: Appearance Urine Cloudy; Color Urine Dark Yellow; Glucose Urine UA Negative (Negative); Leukocyte Esterase Urine Moderate (2+) (Negative); Nitrite Urine Positive (Negative); UMIC TRIGGER UACC YES; Urine Blood Large (3+) (Negative); Urine Ketones Negative (Negative); Urine Protein Trace mg/dL (Neg-Trace)
[2023-11-19 18:26] LABS: Bacteria Urine None Seen (None Seen); Hyaline Casts Urine 0-2 /LPF (0-2); RBC Urine >20 /HPF (0-2); UACC Culture Trigger YES; WBC Urine 21-50 /HPF (0-5)
== END 2023-11-19 18:11 | disposition home or self-care (01) ==
LOC: HO.HHCLNP 18:10
PROVIDERS: Visit Provider Family Medicine
DX: N39.0 Urinary tract infection, site not specified (principal)
CPT/HCPCS: 81001; 87086

== ENCOUNTER 2023-11-25 15:14 | Outpatient (REF) | payer OTHER, MEDICAID, SELFPAY | END 2023-11-25 15:15 | disposition home or self-care (01) | LOC: HO.HAP 15:14 | PROVIDERS: Visit Provider Family Medicine | DX: Z13.89 Encounter for screening for other disorder (principal) ==

== ENCOUNTER 2023-12-12 09:48 | Outpatient (AMB) | payer OTHER, MEDICAID, SELFPAY ==
--- NOTE | 2023-12-12 09:49 | A.OFFVIS_ITS ---
Intake Visit Reasons: pylonephrosis and history of urinary retention Intake Note: New Patient presents for initial visit for pylonephrosis and retention Urology Medications: tamsulosin Blood Thinner: none PVR: 258 ml's Shake Table Operator Required: Yes Shake Table Operator Name: Elvin TAVERA Accompanied by: Unknown Allergies No Known Allergies [No Known Allergies*] Allergy (Verified 12/12/23 10:54) Medication List - Last Reconciled 12/12/23 by DOUG Xiong famotidine 20 mg PO BID ondansetron HCl 4 mg PO Q8H PRN polyethylene glycol 3350 (Miralax) 17 grams PO BID sucralfate 1 g PO QID terazosin 5 mg PO BEDTIME 30 days HPI Comments Details: Jacob Ramirez is a 63-year-old hearing impaired male who uses ASL for interpretation with history of NSTEMI, recent urinary retention, personality disorder, asthma, gender dysphoria, bradycardia, degenerative disc disease, lumbar spinal stenosis, hypertension, and depression. He presents to the office today as a new patient for ongoing lower urinary tract symptoms. He discusses following up with our spine Center here at [facility] and was to undergo surgical procedure however this has since been on hold as patient has been experiencing urinary issues. He reports having seeked emergency room care approximately 1 month ago for foul-smelling urine at which time the patient was noted to be in urinary retention and a Henry catheter was placed. Patient reports this has since been removed. In office urinalysis results reviewed with the patient today. PVR 258 mLs. When asked he does report noting weak urinary stream. He reports foul-smelling urine has since subsided as he completed antibiotic therapy as prescribed from ER physician. He currently denies any bothersome urinary issues or concerns. He denies urinary urgency, urinary frequency, incontinence, nocturia, hematuria, dysuria, foul smelling urine, changes to urinary stream, flank pain, fever, and or chills. Discussed at length potential causes and affects of urinary retention and or incomplete bladder emptying. Discussed obtaining retroperitoneal ultrasound for further assessment evaluation as well as PSA. He does discussed noting a weird sensation to his abdominal area intermittently. He otherwise offers no other issues or concerns at this time. [facility] Medical History Personality disorder 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 Asthma Gender dysphoria Bradycardia Renal calculi Degenerative disc disease, lumbar Lumbar spinal stenosis Hearing impaired Hypertension Depression Surgical History H/O cervical spine surgery History of esophagogastroduodenoscopy (EGD) H/O colonoscopy Family History Other No known health problems Social History Household Members Other:: roommate Are you a primary daycare teacher to a significant other at home: No Do you presently have visiting nurse or other home services: No Alcohol intake: never Comment: overflow Patient Tobacco Use Status: Never used Tobacco Current occupational status: disabled Current occupation: right handed Review of Systems Const Reports as per [facility] Eyes Reports no additional complaints ENT Reports no additional complaints Card Reports as per [facility] Resp Reports as per [facility] GI Reports as per [facility] Reports as per [facility] Musc Reports as per [facility] Neuro Reports as per [facility] Psych Reports as per [facility] Endo Reports no additional complaints Luis/Lymph Reports no additional complaints Aller/Immun Reports no additional complaints Physical Exam Const General: cooperative, healthy appearing, comfortable, no acute distress, well developed, alert and awake Nutritional Appearance: overweight Orientation/consciousness: patient oriented x3 Limitations: ambulation with walker HEENT Head: Yes normal to inspection, Yes normocephalic and Yes atraumatic Ears: hearing grossly normal bilaterally Eyes General: appearance normal, both eyes and all related structures Neck Neck: Yes normal visual inspection and Yes trachea midline Chest Chest palpation & inspection: normal inspection of the chest Resp Effort & Inspection: normal respiratory effort and able to speak in complete sentences Cardio Rate: regular rate GI Inspection: Yes normal to inspection General: Yes no CVA tenderness Back/Spine/Pelvis Back: no CVA tenderness Skin General skin exam: no rashes or lesions noted Neuro General: patient oriented x3 Extrem General: Yes normal to inspection Psych Appearance: grossly normal and well kempt Mental Status: mental status grossly normal Speech and movement: Normal speech and movement present and Clear speech present Affect: normal affect Attitude: cooperative Thought process: Normal thought process present Thought content: Normal thought content present Insight: Fair insight present (Psych) Judgement: Fair judgement present (Psych) Office Procedures Post Void Residual Post Residual Void Post Void Residual (PVR): 258 [id number] Void Residual by ultrasound Results AMB Urinalysis, Automated UA Leukoctes 0 Lewis/uL Last Edit by Dami Hollis on 12/12/23 10:32 UA Nitrite Negative Last Edit by Dami Hollis on 12/12/23 10:32 UA Urobilinogen 0.2 mg/dL Last Edit by Dami Hollis on 12/12/23 10:32 UA Protein 15 mg/dL Last Edit by Dami Hollis on 12/12/23 10:32 UA pH 6.5 Last Edit by Dami Hollis on 12/12/23 10:32 UA Blood 0 Kashif/uL Last Edit by LyricFindbryson Hollis on 12/12/23 10:32 UA Specific [place] 1.015 Last Edit by Dami Hollis on 12/12/23 10:32 UA Ketone Negative Last Edit by Dami Hollis on 12/12/23 10:32 UA Bilirubin 0 mg/dL Last Edit by Dami Hollis on 12/12/23 10:32 UA Glucose 0 mg/dL Last Edit by Dami Hollis on 12/12/23 10:32 Results Reviewed Results Reviewed: Laboratory Last Values Urine pH (Auto) 6.5 12/12/23 10:11 Specific [place] (Auto) 1.015 12/12/23 10:11 Urine Protein (Auto) 15 mg/dL 12/12/23 10:11 Glucose (UA)(Auto) 0 mg/dL 12/12/23 10:11 Urine Ketones (Auto) Negative 12/12/23 10:11 Urine Blood (Auto) 0 Kashif/uL 12/12/23 10:11 Urine Nitrite (Auto) Negative 12/12/23 10:11 Urine Bilirubin (Auto) 0 mg/dL 12/12/23 10:11 Urine Urobilinogen (Auto) 0.2 mg/dL 12/12/23 10:11 Leukocyte Esterase (Auto) 0 Lewis/uL 12/12/23 10:11 Assessment & Plan Assessment & Plan (1) Recurrent UTI: Code(s): N39.0 - Urinary tract infection, site not specified Category: Medical (2) Incomplete bladder emptying: Code(s): R33.9 - Retention of urine, unspecified Category: Medical (3) Weak urinary stream: Code(s): R39.12 - Poor urinary stream Category: Medical Plan In office urinalysis results reviewed with the patient today; as noted above. PVR 258 mL. Will obtain retroperitoneal ultrasound for further assessment evaluation. Will obtain PSA for further assessment evaluation. Will obtain BUN and creatinine. Stop Flomax. Start terazosin 5 mg at bedtime as discussed and prescribed. Discussed at length potential causes of urinary tract infection, urinary retention, and incomplete bladder emptying; this was discussed at length. Discussed possible near future in office cysoscopy Follow up in 1-3 months with imaging and labs to be completed prior and PVR at next office visit; or [place] with any issues, concerns, or questions. Orders: Orders AMB Urinalysis Automated 12/12/23 Z13.9 - Encounter for screening, unspecified AMB Post Void Residual by ultrasound 12/12/23 R33.8 - Other retention of urine US retroperitoneal comp 12/12/23 N39.0 - Urinary tract infection, site not specified, R33.9 - Retention of urine, unspecified Prostate Specific Antigen 12/12/23 Blood Urea Nitrogen 12/12/23 Creatinine 12/12/23 Medications: New terazosin 5 mg PO BEDTIME 30 days 30 caps 1RF N40.1 - Benign prostatic hyperplasia with lower urinary tract symptoms, R35.0 - Frequency of micturition Discontinued oxycodone Partial Fill upon patient request. Discontinued Reason: Patient Completed Course 5 mg PO Q8H PRN 4 tabs 0RF pain cefpodoxime must administer with a meal/food Discontinued Reason: Patient Completed Course 200 mg PO BID 28 tabs 0RF cefpodoxime must administer with a meal/food Discontinued Reason: Patient Completed Course 200 mg PO BID 28 tabs 0RF tamsulosin (Flomax) Discontinued Reason: Doctor's Order 0.4 mg PO BEDTIME 20 caps 0RF Patient Instructions: The patient had an opportunity to ask questions regarding the treatment plan. All questions were answered. Physical exam, labs, and imaging were discussed and reviewed in detail. As well as risks, benefits, and discussion of treatment choices. No major barriers to understanding were identified. The patient expressed understanding and agreement with the above treatment plan. The patient was made aware they should contact our office by phone for worsening of their current condition, the appearance of new symptoms, or with any questions or concerns. Compliance is encouraged with any medications and follow up testing that is ordered. It is a privilege to be allowed the opportunity to participate in? your urological care.? Again, if you have any questions or concerns If you have any questions or concerns please do not hesitate to contact me. The office is [phone]. This note is constructed using voice recognition software. While every effort has been made to ensure accuracy case management director errors may have been included. Yours sincerely, DOUG Xiong Coding Level of Care Code New Pt Level 4 (49055) Diagnoses Recurrent UTI N39.0 Incomplete bladder emptying R33.9 Weak urinary stream R39.12 CPT Codes Post Residual Void - PVR CPT Code: 64779-Cxlm Void Residual by ultrasound ([id number]) Time Spent (min) 50
== END 2023-12-12 10:50 | disposition home or self-care (01) ==
LOC: HO.HUSH 09:48
PROVIDERS: Visit Provider Nurse Practitioner Family
DX: N39.0 Urinary tract infection, site not specified (principal); R33.9 Retention of urine, unspecified; R39.12 Poor urinary stream
CPT/HCPCS: 99204

== ENCOUNTER → 2023-12-12 09:48 | Outpatient (BNVA) | payer OTHER, MEDICAID, SELFPAY | PROVIDERS: Visit Provider Nurse Practitioner Family | DX: N39.0 Urinary tract infection, site not specified (principal); R33.9 Retention of urine, unspecified; R39.12 Poor urinary stream | CPT/HCPCS: 51798; 81003; 99202 ==

== ENCOUNTER 2023-12-22 10:55 | Outpatient (REF) | payer OTHER, SELFPAY ==
--- NOTE | ~2023-12-22 | US_ITS ---
EXAMINATION: US RETROPERITONEAL COMPLETE (RENAL) CLINICAL INFORMATION: Retention of urine, unspecified. COMPARISON: CT abdomen and pelvis 11/12/2023. Ultrasound abdomen 01/30/2022 and 06/13/2009. TECHNIQUE: Real-time imaging of the kidneys and bladder. FINDINGS: RIGHT KIDNEY: 11.0 x 5.1 x 5.3 cm (SAG x AP x TRV). The kidney is normal in size and echogenicity. Renal cortical thickness is normal. No calculi or focal parenchymal lesions. No hydronephrosis. LEFT KIDNEY: 10.6 x 5.4 x 3.8 cm (SAG x AP x TRV). The kidney is normal in size, contour, and echogenicity. Renal cortical thickness is normal. No renal calculi or hydronephrosis. Mid pole 4 mm benign-appearing cysts. BLADDER: Well distended. Bilateral ureteral jets are demonstrated. Prevoid bladder volume is 244 mL. Postvoid bladder volume is 246 mL. Circumferential bladder wall thickening measuring up to 6 mm. Enlarged prostate, volume 25.1 mL. US/US retroperitoneal comp IMPRESSION: * Large postvoid residual of 246 mL. Circumferential bladder wall thickening measuring up to 6 mm. This may be due to chronic urinary retention. Recommend correlation with urinalysis. * Prostatomegaly. * Benign-appearing left renal cyst. Followup imaging is not routinely recommended for benign appearing cysts.
== END 2023-12-22 10:56 | disposition home or self-care (01) ==
LOC: HO.US 10:55
PROVIDERS: Visit Provider Nurse Practitioner Family
DX: R33.9 Retention of urine, unspecified (principal); N39.0 Urinary tract infection, site not specified; Z87.440 Personal history of urinary (tract) infections
CPT/HCPCS: 76770

== ENCOUNTER 2024-01-21 11:56 | Emergency (ER) | payer MEDICARE, MEDICAID, SELFPAY ==
--- NOTE | ~2024-01-21 | XR_ITS ---
EXAMINATION: XR CHEST CLINICAL INFORMATION: Cough COMPARISON: Chest radiograph 11/26/2022, CT abdomen pelvis 11/12/2023 TECHNIQUE: Frontal view of the chest was obtained. FINDINGS: Heart size normal. No evidence of CHF. There is a retrocardiac opacity seen which could represent a small hiatal hernia however none has been seen in the past. This could also represent a small area of infiltrate. There is some right infrahilar patchy density seen as well which may represent an infiltrate. XR/XR chest 1V IMPRESSION: Retrocardiac opacity and right infrahilar patchy density may represent infiltrates.
--- NOTE | 2024-01-21 12:11 | ED.GENADULT ---
HPI - General Adult General Chief complaint: Back Pain/Injury Stated complaint: Multiple complaints - infection ? Time Seen by Provider: 01/21/24 21:50 Source: patient Mode of arrival: ambulatory Limitations: language barrier History of Present Illness ED Provider: lesa HAM narrative: ASL was used and communicating Patient has chronic back pain planning for surgery in future comes in for chronic back also complaining of cough which is going on for last few weeks mucopurulent phlegm no fever no chills no chest pain no numbness or tingling in the lower extremities patient has use walker for ambulation no recent fall Related Data Home Medications ?Medication ?Instructions ?Recorded ?Confirmed famotidine 20 mg tablet 20 mg PO BID 11/10/23 ondansetron HCl 4 mg tablet 4 mg PO Q8H PRN nausea/vomiting 11/10/23 sucralfate 1 gram tablet 1 g PO QID 11/10/23 Previous Rx's ?Medication ?Instructions ?Recorded polyethylene glycol 3350 17 17 g PO BID #238 grams 11/12/23 gram/dose oral powder (Miralax) terazosin 5 mg capsule 5 mg PO BEDTIME 30 days #30 caps 12/12/23 benzonatate 200 mg capsule 200 mg PO TID PRN cough #20 caps 01/21/24 cefuroxime axetil 500 mg tablet 500 mg PO BID 7 days #14 tabs 01/21/24 tramadol 50 mg tablet 50 mg PO Q6H PRN pain #20 tabs 01/21/24 Allergies Allergy/AdvReac Type Severity Reaction Status Date / Time No Known Allergies Allergy Verified 01/21/24 12:13 [No Known Allergies*] Review of Systems Review of Systems: Yes all other systems are reviewed and are negative PMFSH Past Medical History Medical History Personality disorder 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 Asthma Gender dysphoria Bradycardia Renal calculi Degenerative disc disease, lumbar Lumbar spinal stenosis Hearing impaired Hypertension Depression Surgical History H/O cervical spine surgery History of esophagogastroduodenoscopy (EGD) H/O colonoscopy Family History Family History Other No known health problems Social History Social History Household Members Other:: roommate Are you a primary medicare compliance auditor to a significant other at home: No Do you presently have visiting nurse or other home services: No Alcohol intake: never Comment: overflow Patient Tobacco Use Status: Never used Tobacco Advance Directives: No Advance Directives Information Provided: No Current occupational status: disabled Current occupation: right handed Physical Exam ED Vital Signs: Vital Signs - 24 hr 01/21/24 12:12 01/21/24 16:51 01/21/24 23:02 Temperature 97.2 F 97.9 F 98.3 F Pulse Rate 76 59 55 Respiratory Rate 16 18 20 Blood Pressure 122/71 138/79 123/38 L Pulse Oximetry 99 99 95 Oxygen Delivery Method Room Air Room Air Room Air BMI result Body Mass Index 34.7 Appearance: Alert. Oriented X3. No acute distress. Eyes: PERRLA, No Nystagmus ENT: Pharynx normal. Oral Mucosa moist Neck: Normal inspection. Neck supple. CVS: Normal heart rate and rhythm. Pulses normal. Respiratory: No respiratory distress. Equal air entry bilateral, no wheezing/rales/rhonchi bilateral conducted sounds Abdomen: Soft and nontender. Bowel sounds are present, no mass palpable, no CVA tenderness Skin: Skin warm and dry. Normal skin color. Normal skin turgor. Extremities: No lower extremity edema. No calf tenderness back: Diffuse tenderness lumbar area Neuro: Oriented X 3. No motor deficit. Course Course Course Narrative: This is a rapid medical exam performed by Maryana Vaughan NP: Additional HPI, ROS, PE not included below will be deferred to primary provider. Patient is a 63-year-old hearing impaired patient presenting to the ED with complaint of abdominal and back pain since yesterday, dizziness, warmth sensation throughout the body. States checked into the ED yesterday but left before seeing triage nurse due to wait time. Pain begins in back and radiates towards abdomen. Scheduled for back surgery 01/30. Video certified staff interpreter utilized for triage. Plan: labs, UA Medications Administered Discontinued Medications Generic Name Dose Route Start Last Admin Trade Name Freq PRN Reason Stop Dose Admin Al Hydroxide/Mg Hydroxide 30 ml 01/21/24 22:06 01/21/24 23:04 Magnesium Hydrox/Alum Hydrox 30 Ml Oral.Susp PO 01/21/24 22:07 30 ml ONCE ONE Administration Cefuroxime Axetil 500 mg 01/21/24 22:06 01/21/24 23:05 Cefuroxime Axetil 500 Mg Tablet PO 01/21/24 22:07 500 mg ONCE ONE Administration Omeprazole 40 mg 01/21/24 22:01/21/24 23:04 Omeprazole 40 Mg Capsule.Dr PO 01/21/24 22:07 40 mg ONCE ONE Administration Tramadol HCl 50 mg 01/21/24 22:01/21/24 23:04 Tramadol Hcl 50 Mg Tablet PO 01/21/24 22:07 50 mg ONCE ONE Administration Medical Decision Making Medical Decision Making MDM Narrative: Patient with chronic back pain with bronchitis with early infiltrate left lower lobe retrocardiac labs are stable discharge patient on Ceftin and tramadol for pain Lab Data MDM Lab Attestation statement: I reviewed the patient's lab results. 01/21/24 12:30 01/21/24 12:30 Labs: Lab Results 01/21/24 01/21/24 Range/Units 12:30 17:08 WBC 7.9 (4.8-10.8) X10*3/uL RBC 5.00 (4.60-5.80) X10*6/uL Hgb 15.3 (14.0-18.0) g/dl Hct 43.2 (42.0-52.0) % MCV 86.4 (80.0-98.0) fL MCH 30.6 (27.0-33.0) pg MCHC 35.4 (31.0-36.0) g/dl RDW 12.8 (11.0-16.0) % Plt Count 194 D (160-400) X10*3/uL MPV 10.1 (9.4-12.4) fL Immature Gran % (Auto) 0.6 H (0.0-0.4) % Neut % (Auto) 62.5 (45-73) % Lymph % (Auto) 25.5 (20-40) % [place] % (Auto) 8.4 (2-11) % Eos % (Auto) 2.9 (0-4) % Baso % (Auto) 0.1 (0-2) % Lymph # (Auto) 2.0 (1.2-4.9) X10*3/uL [place] # (Auto) 0.7 (0.1-1.2) X10*3/uL Eos # (Auto) 0.2 (0.0-0.4) X10*3/uL Baso # (Auto) 0.0 (0.0-0.2) X10*3/uL Abs Immat Gran (auto) 0.05 H (0.00-0.03) X10*3/uL Absolute Neuts (auto) 4.9 (2.0-8.3) x10*3/uL Absolute Nucleated RBC 0.000 (0.0-0.012) X10*3/uL Nucleated RBC % (auto) 0.0 (0.0-0.2) /100WBC Sodium 142 (135-145) mmol/L Potassium 4.3 (3.3-5.1) mmol/L Chloride 108 (96-108) mmol/L Carbon Dioxide 27 (22-29) mmol/L Anion Gap 11 L (12-20) BUN 20 H (9-16) mg/dL Creatinine 1.17 (0.5-1.4) mg/dL Estim Creat Clear Calc 68.8 Estimated GFR > 60 Random Glucose 115 (60-115) mg/dL Calcium 10.1 D (8.4-10.2) mg/dL Total Bilirubin 0.7 (0.0-1.0) mg/dL AST 18 (5-37) U/L ALT 22 (0-40) U/L Alkaline Phosphatase 67 (39-117) U/L Total Protein 7.6 (6.5-8.0) g/dL Albumin 4.4 (3.5-5.0) g/dL Urine Color Yellow Urine Appearance Clear Urine pH 6.0 (5.0-9.0) Ur Specific [place] 1.020 (1.005-1.025) Urine Protein Negative (Neg-Trace) mg/dL Urine Glucose (UA) Negative (Negative) mg/dL Urine Ketones Negative (Negative) mg/dL Urine Blood Negative (Negative) Urine Nitrite Negative (Negative) Ur Leukocyte Esterase Trace H (Negative) Urine RBC 0-2 (0-2) /HPF Urine WBC 0-5 (0-5) /HPF Ur Squamous Epith Cells 0-2 (0-2) /HPF Urine Bacteria None Seen (None Seen) Hyaline Casts 0-2 (0-2) /LPF Independent Interpretation I performed an independent interpretation of an: Plain X-Ray Radiology Impression Discussion of test interpretation with radiology: I have reviewed the radiologist's reading. Discharge Plan Discharge Clinical Impression: Acute bronchitis, Chronic low back pain Patient Disposition: Home, Self-Care Instructions: Acute Bronchitis (ED), Chronic Back Pain (DC) Additional Instructions: Antibiotic and cough as prescribed Pain medication as prescribed Follow up with your PCP Prescriptions: New benzonatate 200 mg capsule 200 mg PO TID PRN (Reason: cough) Qty: 20 0RF cefuroxime axetil 500 mg tablet 500 mg PO BID 7 Days Qty: 14 0RF tramadol 50 mg tablet 50 mg PO Q6H PRN (Reason: pain) Qty: 20 0RF No Action sucralfate 1 gram tablet 1 g PO QID ondansetron HCl 4 mg tablet 4 mg PO Q8H PRN (Reason: nausea/vomiting) famotidine 20 mg tablet 20 mg PO BID polyethylene glycol 3350 [Miralax] 17 gram/dose powder 17 g PO BID Qty: 238 0RF terazosin 5 mg capsule 5 mg PO BEDTIME 30 Days Qty: 30 1RF Print Language: Mozambican Sign Language
[2024-01-21 12:12] VITALS: BP 122/71; PULSE 76; RESP 16; TEMP 36.2; O2SAT 99; BMI 34.7
[2024-01-21 12:45] LABS: MANUAL DIFF FLAG NO
[2024-01-21 12:46] LABS: Basophils Percent Auto 0.1 % (0-2); Eosinophils Absolute Auto 0.2 X10*3/uL (0.0-0.4); Eosinophils Percent Auto 2.9 % (0-4); Hematocrit 43.2 % (42.0-52.0); Hemoglobin 15.3 g/dl (14.0-18.0); Imm Gran Abs Auto 0.05 X10*3/uL (0.00-0.03); Imm Gran Pct Auto 0.6 % (0.0-0.4); Lymphocytes Percent Auto 25.5 % (20-40); Mean Corpuscular HGB Conc 35.4 g/dl (31.0-36.0); Mean Corpuscular Hemoglobin 30.6 pg (27.0-33.0); Mean Corpuscular Volume 86.4 fL (80.0-98.0); Mean Platelet Volume 10.1 fL (9.4-12.4); Monocytes Absolute Auto 0.7 X10*3/uL (0.1-1.2); Monocytes Percent Auto 8.4 % (2-11); Neutrophils Absolute Auto 4.9 x10*3/uL (2.0-8.3); Neutrophils Percent Auto 62.5 % (45-73); Platelet Count 194 X10*3/uL (160-400); Red Cell Distribution Width 12.8 % (11.0-16.0); White Blood Count 7.9 X10*3/uL (4.8-10.8)
[2024-01-21 13:04] LABS: Alanine Aminotransferase 22 U/L (0-40); Albumin Level 4.4 g/dL (3.5-5.0); Alkaline Phosphatase 67 U/L (39-117); Anion Gap 11 (12-20); Aspartate Amino Transferase 18 U/L (5-37); Bilirubin Total 0.7 mg/dL (0.0-1.0); Blood Urea Nitrogen 20 mg/dL (9-16); Calcium 10.1 mg/dL (8.4-10.2); Carbon Dioxide 27 mmol/L (22-29); Chloride 108 mmol/L (96-108); Creatinine Clr Calc Pharmacy 68.8; Estimated Glomerular Filt Rate > 60; Glucose Random 115 mg/dL (60-115); Potassium 4.3 mmol/L (3.3-5.1); Sodium 142 mmol/L (135-145); Total Protein 7.6 g/dL (6.5-8.0)
[2024-01-21 16:51] VITALS: BP 138/79; PULSE 59; RESP 18; TEMP 36.6; O2SAT 99
[2024-01-21 17:16] LABS: Appearance Urine Clear; Color Urine Yellow; Glucose Urine UA Negative (Negative); Leukocyte Esterase Urine Trace (Negative); Nitrite Urine Negative (Negative); UMIC TRIGGER UACC YES; Urine Blood Negative (Negative); Urine Ketones Negative (Negative); Urine Protein Negative (Neg-Trace)
[2024-01-21 17:21] LABS: Bacteria Urine None Seen (None Seen); Hyaline Casts Urine 0-2 /LPF (0-2); RBC Urine 0-2 /HPF (0-2); Squamous Epithelial Cell Urine 0-2 /HPF (0-2); WBC Urine 0-5 /HPF (0-5)
[2024-01-21 23:02] VITALS: BP 123/38; PULSE 55; RESP 20; TEMP 36.8; O2SAT 95
[2024-01-21] MEDS: traMADoL HCL 50 MG TABLET PO (23:04)
[2024-01-21] MEDS: Magnesium Hydrox/Alum Hydrox 30 ML ORAL.SUSP PO (23:04)
[2024-01-21] MEDS: Omeprazole 40 MG CAPSULE.DR PO (23:04)
[2024-01-21] MEDS: cefuroxime axetiL 500 MG TABLET PO (23:05)
[2024-01-22] VITALS: BP 112/56; PULSE 68; RESP 18; TEMP 36.8; O2SAT 97
[2024-01-22 01:27] VITALS: BP 112/56; PULSE 68; RESP 18; TEMP 36.8; O2SAT 97
== END 2024-01-22 01:30 | disposition home or self-care (01) ==
PROVIDERS: Registered Nurse Emergency; Emergency Provider Internal Medicine
DX: J40 Bronchitis, not specified as acute or chronic (principal); M54.50 Low back pain, unspecified; R05.9 Cough, unspecified; R10.9 Unspecified abdominal pain
CPT/HCPCS: 36415; 71045; 80053; 81001; 85025; 99283; 99284

== ENCOUNTER 2024-01-29 09:29 | Outpatient (REF) | payer MEDICARE, MEDICAID, SELFPAY ==
[2024-01-29 11:44] LABS: Blood Urea Nitrogen 18 mg/dL (9-16); Estimated Glomerular Filt Rate > 60
[2024-01-29 11:58] LABS: Prostate Specific Antigen 6.05 ng/mL (<0.05-4.0)
== END 2024-01-29 09:30 | disposition home or self-care (01) ==
LOC: HO.LAB 09:29
PROVIDERS: Visit Provider Nurse Practitioner Family
DX: N39.0 Urinary tract infection, site not specified (principal); R39.12 Poor urinary stream; N32.89 Other specified disorders of bladder; R97.20 Elevated prostate specific antigen [PSA]; N32.0 Bladder-neck obstruction; N40.1 Benign prostatic hyperplasia with lower urinary tract symptoms; R35.1 Nocturia; R33.8 Other retention of urine; Z12.5 Encounter for screening for malignant neoplasm of prostate
CPT/HCPCS: 36415; 51798; 81003; 82565; 84153; 84520; 87086; 99212

== ENCOUNTER 2024-01-29 12:41 | Outpatient (AMB) | payer MEDICARE, MEDICAID, SELFPAY ==
--- NOTE | 2024-01-29 13:06 | MHC.OFFVIS ---
Intake Visit Reasons: 1m/US/labs Intake Note: Patient presents for follow up visit on: pylonephrosis, retention, ultrasound and psa results Imagin12/22/23 PSA:6.05 Urology Medications: Terazosin Blood Thinner: none PVR: 138ml's Forestry Biology Specialist Required: Yes Accompanied by: pricer bagger and friend Allergies No Known Allergies [No Known Allergies*] Allergy (Verified 01/29/24 13:39) Medication List - Last Reconciled 01/29/24 by DARA Xiong- alfuzosin ER 10 mg PO BEDTIME 30 days benzonatate 200 mg PO TID PRN famotidine 20 mg PO BID ondansetron HCl 4 mg PO Q8H PRN polyethylene glycol 3350 (Miralax) 17 grams PO BID sucralfate 1 g PO QID tramadol 50 mg PO Q6H PRN HPI Comments Details: Jacob Ramirez is a 63-year-old hearing impaired male who uses ASL for interpretation with history of NSTEMI, recent urinary retention, personality disorder, asthma, gender dysphoria, bradycardia, degenerative disc disease, lumbar spinal stenosis, hypertension, and depression. He presents to the office today for follow-up. Of note, patient was seen approximately 6 weeks ago as a new patient for ongoing lower urinary tract symptoms at which time a retroperitoneal ultrasound and PSA were ordered for further assessment evaluation. The patient was also started on terazosin 5 mg to assist with incomplete bladder emptying as PVR during last office visit was 258 mL. In discussion with the patient today he reports having seeked emergency room care approximately 1 week ago for ongoing back pain and acute bronchitis. He reports being given medications however he has since stopped taking them as he feels they are making him worse. He reports having stopped terazosin approximately 3 days ago as he feels this has also been making him feel dizzy. He discusses his ongoing medical issues with chronic back pain and indigestion. He discusses his frustration regarding his back pain and surgical intervention. In office urinalysis results reviewed with the patient today 2+ leukocytes negative nitrates. PVR is somewhat improved since last office visit. PVR today 138 mL. Recent retroperitoneal ultrasound and PSA results reviewed with the patient today. Bilateral kidneys with no calculi, lesions, and or hydronephrosis noted. Mid pole 4 mm benign-appearing left renal cyst noted. Bilateral ureteral jets are demonstrated. Pre void bladder volume is approximately 244 mL. Postvoid bladder volume is approximately 245 mL. Circumferential bladder wall thickening measuring up to 6 mm. Prostate volume is approximately 25 mL. He discusses following up with our spine Center here at [facility] and was to undergo surgical procedure however this has since been on hold as patient has been experiencing urinary issues. When asked he does report noting weak urinary stream. He continues to report foul-smelling urine. He otherwise denies urinary urgency, urinary frequency, incontinence, nocturia, hematuria, dysuria, changes to urinary stream, flank pain, fever, and or chills. Discussed at length potential causes and affects of urinary retention and or incomplete bladder emptying. PSAs are as follows: PSAs: 08/02 2.5, 02/01 6.1 Discussed at length potential causes of elevated PSA. Discussed correlation of elevated PSA with potential urinary tract infection. Discussed redraw of PSA status post completion of antibiotic therapy for potential urinary tract infection however will await urine culture. He discusses his upcoming colonoscopy tomorrow for his ongoing GI issues. He otherwise offers no other issues or concerns at this time. [facility] Medical History Personality disorder 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 Asthma Gender dysphoria Bradycardia Renal calculi Degenerative disc disease, lumbar Lumbar spinal stenosis Hearing impaired Hypertension Depression Surgical History H/O cervical spine surgery History of esophagogastroduodenoscopy (EGD) H/O colonoscopy Family History Other No known health problems Social History Household Members Other:: roommate Are you a primary resident care manager rn to a significant other at home: No Do you presently have visiting nurse or other home services: No Alcohol intake: never Comment: overflow Patient Tobacco Use Status: Never used Tobacco Current occupational status: disabled Current occupation: right handed Review of Systems Const Reports as per HPI Eyes Reports no additional complaints ENT Reports no additional complaints Card Reports as per HPI Resp Reports as per HPI GI Reports as per HPI Reports as per HPI Musc Reports as per HPI Neuro Reports as per HPI Psych Reports as per HPI Endo Reports no additional complaints Luis/Lymph Reports no additional complaints Aller/Immun Reports no additional complaints Physical Exam Const General: cooperative, healthy appearing, comfortable, no acute distress, well developed, alert and awake Nutritional Appearance: overweight Orientation/consciousness: patient oriented x3 Limitations: ambulation with walker HEENT Head: Yes normal to inspection, Yes normocephalic and Yes atraumatic Ears: hearing grossly normal bilaterally Eyes General: appearance normal, both eyes and all related structures Neck Neck: Yes normal visual inspection and Yes trachea midline Chest Chest palpation & inspection: normal inspection of the chest Resp Effort & Inspection: normal respiratory effort and able to speak in complete sentences Cardio Rate: regular rate GI Inspection: Yes normal to inspection General: Yes no CVA tenderness Back/Spine/Pelvis Back: no CVA tenderness Skin General skin exam: no rashes or lesions noted Neuro General: patient oriented x3 Extrem General: Yes normal to inspection Psych Appearance: grossly normal and well kempt Mental Status: mental status grossly normal Speech and movement: Normal speech and movement present and Clear speech present Affect: normal affect Attitude: cooperative Thought process: Normal thought process present Thought content: Normal thought content present Insight: Fair insight present (Psych) Judgement: Fair judgement present (Psych) Office Procedures Post Void Residual Post Residual Void Post Void Residual (PVR): 138 [id number] Void Residual by ultrasound Results AMB Urinalysis, Automated UA Leukoctes 125 Lewis/uL Last Edit by [employer] on 01/29/24 13:42 UA Nitrite Negative Last Edit by [employer] on 01/29/24 13:42 UA Urobilinogen 0.2 mg/dL Last Edit by [employer] [facility] on 01/29/24 13:42 UA Protein 15 mg/dL Last Edit by [employer] [facility] on 01/29/24 13:42 UA pH 5.5 Last Edit by [employer] on 01/29/24 13:42 UA Blood 0 Kashif/uL Last Edit by [employer] [facility] on 01/29/24 13:42 UA Specific [place] 1.025 Last Edit by [employer] on 01/29/24 13:42 UA Ketone Negative Last Edit by [employer] on 01/29/24 13:42 UA Bilirubin 0 mg/dL Last Edit by [employer] [facility] on 01/29/24 13:42 UA Glucose 0 mg/dL Last Edit by Dami Hollis on 01/29/24 13:42 Results Reviewed Results Reviewed: Laboratory Last Values Urine pH (Auto) 5.5 01/29/24 13:41 Specific [place] (Auto) 1.025 01/29/24 13:41 Urine Protein (Auto) 15 mg/dL 01/29/24 13:41 Glucose (UA)(Auto) 0 mg/dL 01/29/24 13:41 Urine Ketones (Auto) Negative 01/29/24 13:41 Urine Blood (Auto) 0 Kashif/uL 01/29/24 13:41 Urine Nitrite (Auto) Negative 01/29/24 13:41 Urine Bilirubin (Auto) 0 mg/dL 01/29/24 13:41 Urine Urobilinogen (Auto) 0.2 mg/dL 01/29/24 13:41 Leukocyte Esterase (Auto) 125 Lewis/uL 01/29/24 13:41 Date of Service: 12/22/23 EXAMINATION: US RETROPERITONEAL COMPLETE (RENAL) FINDINGS: RIGHT KIDNEY: 11.0 x 5.1 x 5.3 cm (SAG x AP x TRV). The kidney is normal in size and echogenicity. Renal cortical thickness is normal. No calculi or focal parenchymal lesions. No hydronephrosis. LEFT KIDNEY: 10.6 x 5.4 x 3.8 cm (SAG x AP x TRV). The kidney is normal in size, contour, and echogenicity. Renal cortical thickness is normal. No renal calculi or hydronephrosis. Mid pole 4 mm benign-appearing cysts. BLADDER: Well distended. Bilateral ureteral jets are demonstrated. Prevoid bladder volume is 244 mL. Postvoid bladder volume is 246 mL. Circumferential bladder wall thickening measuring up to 6 mm. Enlarged prostate, volume 25.1 mL. IMPRESSION: * Large postvoid residual of 246 mL. Circumferential bladder wall thickening measuring up to 6 mm. This may be due to chronic urinary retention. Recommend correlation with urinalysis. * Prostatomegaly. * Benign-appearing left renal cyst. Followup imaging is not routinely recommended for benign appearing cysts. Assessment & Plan Assessment & Plan (1) Weak urinary stream: Code(s): R39.12 - Poor urinary stream Category: Medical (2) Recurrent UTI: Code(s): N39.0 - Urinary tract infection, site not specified Category: Medical (3) Incomplete bladder emptying: Code(s): R33.9 - Retention of urine, unspecified Category: Medical (4) Bladder wall thickening: Code(s): N32.89 - Other specified disorders of bladder Category: Medical (5) Elevated PSA: Code(s): R97.20 - Elevated prostate specific antigen [PSA] Category: Medical (6) Enlarged prostate: Code(s): N40.0 - Benign prostatic hyperplasia without lower urinary tract symptoms Category: Medical Plan In office urinalysis results reviewed with the patient today; as noted above; will send for urine culture. PVR 138 mL. Stop terazosin. Start alfuzosin as discussed and prescribed. Discussed at length potential causes of incomplete bladder emptying and bladder wall thickening. Discussed possible near future in office cystoscopy for further assessment evaluation. Recent retroperitoneal ultrasound results reviewed with the patient today; as noted above. Recent PSA results reviewed with the patient today; as noted above. Discussed at length potential causes of elevated PSA. Discussed obtaining redraw of PSA status post potential completion of antibiotic therapy for potential urinary tract infection however will await urine culture results. Discussed lifestyle modification to assist with incomplete bladder emptying. Discussed relation of incomplete bladder emptying to recurrent urinary tract infections. Will obtain redraw of PSA in 6-8 weeks. Follow-up in 2 months with PSA to be completed prior; or sooner with any issues, concerns, and or questions. Orders: Orders AMB Post Void Residual by ultrasound Today R39.12 - Poor urinary stream PSA,Total (Free>4and<10) 8 Weeks R97.20 - Elevated prostate specific antigen [PSA] AMB Urinalysis Automated Today Z13.9 - Encounter for screening, unspecified Urine Culture Today N39.0 - Urinary tract infection, site not specified Medications: New alfuzosin ER Take before bedtime 10 mg PO BEDTIME 30 days 30 tabs 2RF N32.0 - Bladder-neck obstruction, N40.1 - Benign prostatic hyperplasia with lower urinary tract symptoms, R33.9 - Retention of urine, unspecified, R35.1 - Nocturia, R39.12 - Poor urinary stream Discontinued cefuroxime axetil Discontinued Reason: Patient no longer taking 500 mg PO BID 7 days 14 tabs 0RF terazosin Discontinued Reason: Doctor's Order 5 mg PO BEDTIME 30 days 30 caps 1RF N40.1 - Benign prostatic hyperplasia with lower urinary tract symptoms, R35.0 - Frequency of micturition Patient Instructions: The patient had an opportunity to ask questions regarding the treatment plan. All questions were answered. Physical exam, labs, and imaging were discussed and reviewed in detail. As well as risks, benefits, and discussion of treatment choices. No major barriers to understanding were identified. The patient expressed understanding and agreement with the above treatment plan. The patient was made aware they should contact our office by phone for worsening of their current condition, the appearance of new symptoms, or with any questions or concerns. Compliance is encouraged with any medications and follow up testing that is ordered. It is a privilege to be allowed the opportunity to participate in? your urological care.? Again, if you have any questions or concerns If you have any questions or concerns please do not hesitate to contact me. The office is [phone]. This note is constructed using voice recognition software. While every effort has been made to ensure accuracy internal communications specialist errors may have been included. Yours sincerely, VICKI Xiong Coding Level of Care Code Est Pt Level 4 (56155) Diagnoses Weak urinary stream R39.12 Recurrent UTI N39.0 Incomplete bladder emptying R33.9 Bladder wall thickening N32.89 Elevated PSA R97.20 Enlarged prostate N40.0 CPT Codes Post Residual Void - PVR CPT Code: 78508-Kowe Void Residual by ultrasound ([id number]) Time Spent (min) 40
== END 2024-01-29 14:22 | disposition home or self-care (01) ==
PROVIDERS: Visit Provider Nurse Practitioner Family
DX: R39.12 Poor urinary stream (principal); N39.0 Urinary tract infection, site not specified; R33.9 Retention of urine, unspecified; N32.89 Other specified disorders of bladder; R97.20 Elevated prostate specific antigen [PSA]; N40.0 Benign prostatic hyperplasia without lower urinary tract symptoms; Z13.9 Encounter for screening, unspecified
CPT/HCPCS: 99214

== ENCOUNTER 2024-01-29 15:54 | Outpatient (REF) | payer MEDICARE, MEDICAID, SELFPAY | END 2024-01-29 15:55 | disposition home or self-care (01) | LOC: HO.LNP 15:54 | PROVIDERS: Visit Provider Nurse Practitioner Family | DX: Z13.89 Encounter for screening for other disorder (principal) ==

== ENCOUNTER 2024-02-05 18:09 | Emergency (ER) | payer MEDICARE, MEDICAID, SELFPAY ==
--- NOTE | ~2024-02-05 | CT_ITS ---
EXAMINATION: CT ABDOMEN AND PELVIS WITHOUT CONTRAST CLINICAL INFORMATION: Abdominal distention. Rule out small bowel obstruction. COMPARISON: CT scan abdomen pelvis November 12, 2023 TECHNIQUE: Multidetector volumetric imaging was performed from the superior aspect of the liver through the pubic symphysis. Sagittal and coronal reformatted images were obtained on the technologist's workstation. This CT examination was performed using dose optimization techniques as appropriate, variously including the following: *Automated exposure control *Adjustment of mA and/or kV according to patient size (this includes techniques or standardized protocols for targeted exams where dose is matched to indication/reason for exam; i.e. extremities or head) *Use of iterative reconstruction technique DLP: 685 mGy-cm FINDINGS: LUNG BASES: The visualized lung bases are unremarkable. LIVER, GALLBLADDER, AND BILIARY TREE: The liver is normal in size, shape, and attenuation. No focal hepatic lesion or biliary ductal dilatation is present. Status post cholecystectomy PANCREAS: Unremarkable. SPLEEN: Unremarkable. ADRENAL GLANDS: Unremarkable. KIDNEYS AND URETERS: The kidneys are normal in size, shape, and attenuation. No hydronephrosis, hydroureter, or calculi seen. No perinephric stranding. BLADDER: Unremarkable. GASTROINTESTINAL TRACT: The small and large bowel are unremarkable. The appendix is nonvisualized. ABDOMINAL WALL: No significant hernia is appreciated. LYMPH NODES: Normal. VASCULAR: Scattered vascular wall calcifications in the abdomen and pelvis. There is no aneurysm. PELVIC VISCERA: Unremarkable. OSSEOUS STRUCTURES: Multilevel degenerative spondylosis spine. CT/CT abdomen pelvis wo IV con IMPRESSION: No acute abnormality CT scan abdomen pelvis. Fleischner guidelines were followed.
[2024-02-05 18:28] VITALS: BP 114/68; BP 130/48; PULSE 56; PULSE 62; RESP 18; TEMP 36.5; O2SAT 96; O2SAT 97; BMI 17.9
--- NOTE | 2024-02-05 18:47 | ECG_ITS ---
Test Reason : ABDOMINAL PAIN Blood Pressure : / mmHG Vent. Rate : 049 BPM Atrial Rate : 049 BPM P-R Int : 204 ms QRS Dur : 098 ms QT Int : 454 ms P-R-T Axes : 068 059 029 degrees QTc Int : 410 ms Sinus bradycardia Otherwise normal ECG When compared with ECG of 13-OCT-2023 17:09, Premature atrial complexes are no longer Present Referred By: Melina Cope Electronically Signed By:ROCIO RICE MD
--- NOTE | 2024-02-05 18:49 | ED_ITS ---
HPI - Male Genitourinary General Chief complaint: Urogenital-Male Stated complaint: ABD PAIN,UNABLE TO URINATE X3 DAYS Time Seen by Provider: 02/05/24 18:36 Source: patient, family (Friend), EMS and artillery officer (A engineered wood designer) Mode of arrival: EMS Limitations: language barrier History of Present Illness ED Provider: DR. Cope HPI Narrative: 63-year-old male with history of deafness came in for 1 day of feeling abdominal pain and bloated, patient feels burning sensation in the abdomen, no nausea, no vomiting but patient feels dizzy. No chest pain. Patient is unable to urinate normally for the past 4 days only urinate a small amount with a weak stream. Related Data Home Medications ?Medication ?Instructions ?Recorded ?Confirmed famotidine 20 mg tablet 20 mg PO BID 11/10/23 ondansetron HCl 4 mg tablet 4 mg PO Q8H PRN nausea/vomiting 11/10/23 sucralfate 1 gram tablet 1 g PO QID 11/10/23 Previous Rx's ?Medication ?Instructions ?Recorded polyethylene glycol 3350 17 17 g PO BID #238 grams 11/12/23 gram/dose oral powder (Miralax) benzonatate 200 mg capsule 200 mg PO TID PRN cough #20 caps 01/21/24 tramadol 50 mg tablet 50 mg PO Q6H PRN pain #20 tabs 01/21/24 alfuzosin 10 mg tablet,extended 10 mg PO BEDTIME 30 days #30 tabs 01/29/24 release 24 hr Allergies Allergy/AdvReac Type Severity Reaction Status Date / Time No Known Allergies Allergy Verified 02/05/24 18:33 [No Known Allergies*] Review of Systems 2 Review of Systems: All other systems are reviewed and are negative Constitutional: Reports as per HPI and Reports no additional constitutional complaints Eyes: Reports as per HPI and Reports no additional eye complaints Reports system reviewed and no additional complaints, except as documented Cardiovascular: Reports as per HPI and Reports no additional cardiovascular complaints Respiratory: Reports as per HPI and Reports no additional respiratory complaints Gastrointestinal: Reports as per HPI and Reports no additional gastrointestinal complaints Genitourinary: Reports no additional female genitourinary complaints Musculoskeletal: Reports no additional musculoskeletal complaints Skin/Breast: Reports system reviewed and no additional complaints, except as docu Psychiatric: Reports no additional psychiatric complaints Endocrine: Reports no additional endocrine complaints Hematologic/Lymphatic: Reports no additional hematologic/lymphatic complaints Allergic/Immunologic: Reports no additional allergic/immunologic complaints Reports system reviewed and no additional complaints, except as documented and Reports Abnormal speech present [facility] Past Medical History Medical History Personality disorder 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 Asthma Gender dysphoria Bradycardia Renal calculi Degenerative disc disease, lumbar Lumbar spinal stenosis Hearing impaired Hypertension Depression Surgical History H/O cervical spine surgery History of esophagogastroduodenoscopy (EGD) H/O colonoscopy Family History Family History Other No known health problems Social History Social History Household Members Other:: roommate Are you a primary pharmacy customer care specialist to a significant other at home: No Do you presently have visiting nurse or other home services: No Alcohol intake: never Comment: overflow Patient Tobacco Use Status: Never used Tobacco Advance Directives: No Advance Directives Information Provided: No Do you have a plan to hurt others: No Plan Current occupational status: disabled Current occupation: right handed Physical Exam 2 Vital Signs: Vital Signs: Last Vital Signs Temp 97.7 F 02/05/24 18:28 Pulse 56 02/05/24 18:28 Resp 18 02/05/24 18:28 BP 130/48 L 02/05/24 18:28 Pulse Ox 97 02/05/24 18:28 O2 Del Method Room Air 02/05/24 18:28 BMI result Body Mass Index 17.9 Vital signs have been reviewed and appear to be correct. Blood pressure elevated. Heart rate normal. Respiratory rate normal. Temperature normal. Oxygen saturation normal. Appearance: Alert. Oriented X3. No acute distress. Head: Normal external exam. Normocephalic. Atraumatic. No Spangler signs noted. No raccoon eyes noted Eyes: PERRLA. EOMI. Conjunctiva and sclera normal. Eyelids normal. ENT: TM's Normal. Pharynx normal. Uvula midline. Moist mucous membranes. No trismus noted. No drooling noted. No muffled voice noted. Neck: Normal inspection. Neck supple. FROM. No adenopathy. Thyroid Normal. No meningeal signs. No neck mass noted. CVS: Normal heart rate and rhythm. Heart sound normal. No murmurs noted. Pulses normal throughout. Respiratory: No respiratory distress. Painless inspiration. Breath sounds normal. No wheezes/rales/rhonchi noted. Chest nontender. No accessory muscle usage noted or decreased air movement noted. Abdomen: Soft and nontender. Bowel sounds normal in all 4 quadrants. No distention noted. No organomegaly noted. No visible injury noted. Back: No CVA tenderness. Full range of motion noted. Skin: Skin warm and dry. Normal skin color. Normal skin turgor. No rashes/lesions/lacerations noted. Extremities: No lower extremity edema. Extremities exhibit normal range of motion. Extremities nontender. Neuro: Oriented X 3. Cranial nerve exam: II-XII are grossly intact No motor deficit. No sensory deficit. Reflexes normal. Course Reevaluation(s) Reevaluation #1: 63-year-old with urinary retention, Henry catheter was placed with 350 cc clear urine was drained. Patient feels abdominal burning sensation unremarkable CT of the abdomen pelvis, improved with Maalox. CT abdomen and pelvis revealed no acute intra-abdominal pathology. Time: 00:56 Medical Decision Making Differential Diagnosis Differential Diagnoses: The differential diagnosis associated with the presentation includes (Urinary retention, UTI, gastritis, colitis, diverticulitis, small-bowel obstruction, kidney stone.) Admission/Observation Consideration of admission/observation: Escalation of care including admission/observation considered Lab Data MDM Lab Attestation statement: I reviewed the patient's lab results. 02/05/24 19:19 02/05/24 19:19 Labs: Lab Results 02/05/24 02/05/24 Range/Units 19:19 23:24 WBC 8.3 (4.8-10.8) X10*3/uL RBC 4.46 L (4.60-5.80) X10*6/uL Hgb 13.8 L (14.0-18.0) g/dl Hct 39.1 L (42.0-52.0) % MCV 87.7 (80.0-98.0) fL MCH 30.9 (27.0-33.0) pg MCHC 35.3 (31.0-36.0) g/dl RDW 13.0 (11.0-16.0) % Plt Count 170 (160-400) X10*3/uL MPV 10.0 (9.4-12.4) fL Immature Gran % (Auto) 0.8 H (0.0-0.4) % Neut % (Auto) 61.1 (45-73) % Lymph % (Auto) 23.8 (20-40) % [place] % (Auto) 10.7 (2-11) % Eos % (Auto) 3.5 (0-4) % Baso % (Auto) 0.1 (0-2) % Lymph # (Auto) 2.0 (1.2-4.9) X10*3/uL [place] # (Auto) 0.9 (0.1-1.2) X10*3/uL Eos # (Auto) 0.3 (0.0-0.4) X10*3/uL Baso # (Auto) 0.0 (0.0-0.2) X10*3/uL Abs Immat Gran (auto) 0.07 H (0.00-0.03) X10*3/uL Absolute Neuts (auto) 5.0 (2.0-8.3) x10*3/uL Absolute Nucleated RBC 0.000 (0.0-0.012) X10*3/uL Nucleated RBC % (auto) 0.0 (0.0-0.2) /100WBC Sodium 141 (135-145) mmol/L Potassium 4.1 (3.3-5.1) mmol/L Chloride 110 H (96-108) mmol/L Carbon Dioxide 26 (22-29) mmol/L Anion Gap 9 L (12-20) BUN 17 H (9-16) mg/dL Creatinine 0.81 (0.5-1.4) mg/dL Estim Creat Clear Calc 55.4 Estimated GFR > 60 Random Glucose 85 (60-115) mg/dL Calcium 9.3 D (8.4-10.2) mg/dL Total Bilirubin 0.4 (0.0-1.0) mg/dL Direct Bilirubin 0.1 (0.0-0.5) mg/dL AST 17 (5-37) U/L ALT 20 (0-40) U/L Alkaline Phosphatase 62 (39-117) U/L Troponin I High Sens < 2.7 (<3.5-35.0) ng/L Total Protein 7.0 (6.5-8.0) g/dL Albumin 4.1 (3.5-5.0) g/dL Lipase 32 (8-78) U/L Urine Color Yellow Urine Appearance Clear Urine pH 6.0 (5.0-9.0) Ur Specific [place] 1.025 (1.005-1.025) Urine Protein Trace (Neg-Trace) mg/dL Urine Glucose (UA) Negative (Negative) mg/dL Urine Ketones Negative (Negative) mg/dL Urine Blood Negative (Negative) Urine Nitrite Negative (Negative) Ur Leukocyte Esterase Trace H (Negative) Urine RBC 0-2 (0-2) /HPF Urine WBC 0-5 (0-5) /HPF Ur Squamous Epith Cells 0-2 (0-2) /HPF Urine Bacteria None Seen (None Seen) Hyaline Casts 0-2 (0-2) /LPF Independent Interpretation I performed an independent interpretation of an: CT Scan (Abdomen pelvis:No acute abnormality CT scan abdomen pelvis.) Radiology Impression Discussion of test interpretation with radiology: I have reviewed the radiologist's reading. Discharge Plan Discharge Clinical Impression: Acute urinary retention, Abdominal pain Patient Disposition: Home, Self-Care Instructions: Henry Catheter Placement and Care (ED) Prescriptions: No Action sucralfate 1 gram tablet 1 g PO QID ondansetron HCl 4 mg tablet 4 mg PO Q8H PRN (Reason: nausea/vomiting) famotidine 20 mg tablet 20 mg PO BID polyethylene glycol 3350 [Miralax] 17 gram/dose powder 17 g PO BID Qty: 238 0RF benzonatate 200 mg capsule 200 mg PO TID PRN (Reason: cough) Qty: 20 0RF tramadol 50 mg tablet 50 mg PO Q6H PRN (Reason: pain) Qty: 20 0RF alfuzosin 10 mg tablet extended release 24 hr 10 mg PO BEDTIME 30 Days Qty: 30 2RF Rx Instructions: Take before bedtime Referrals: Jair Pro MD [Physician] - Ligia Becerra MD [Primary Care Provider] - Print Language: Tunisian Sign Language
[2024-02-05 19:26] LABS: MANUAL DIFF FLAG NO
[2024-02-05 19:29] LABS: Basophils Percent Auto 0.1 % (0-2); Eosinophils Absolute Auto 0.3 X10*3/uL (0.0-0.4); Eosinophils Percent Auto 3.5 % (0-4); Hematocrit 39.1 % (42.0-52.0); Hemoglobin 13.8 g/dl (14.0-18.0); Imm Gran Abs Auto 0.07 X10*3/uL (0.00-0.03); Imm Gran Pct Auto 0.8 % (0.0-0.4); Lymphocytes Percent Auto 23.8 % (20-40); Mean Corpuscular HGB Conc 35.3 g/dl (31.0-36.0); Mean Corpuscular Hemoglobin 30.9 pg (27.0-33.0); Mean Corpuscular Volume 87.7 fL (80.0-98.0); Monocytes Absolute Auto 0.9 X10*3/uL (0.1-1.2); Monocytes Percent Auto 10.7 % (2-11); Neutrophils Percent Auto 61.1 % (45-73); Platelet Count 170 X10*3/uL (160-400); Red Blood Count 4.46 X10*6/uL (4.60-5.80); White Blood Count 8.3 X10*3/uL (4.8-10.8)
[2024-02-05 19:45] LABS: Alanine Aminotransferase 20 U/L (0-40); Albumin Level 4.1 g/dL (3.5-5.0); Alkaline Phosphatase 62 U/L (39-117); Anion Gap 9 (12-20); Aspartate Amino Transferase 17 U/L (5-37); Bilirubin Direct 0.1 mg/dL (0.0-0.5); Bilirubin Total 0.4 mg/dL (0.0-1.0); Blood Urea Nitrogen 17 mg/dL (9-16); Calcium 9.3 mg/dL (8.4-10.2); Carbon Dioxide 26 mmol/L (22-29); Chloride 110 mmol/L (96-108); Creatinine Clr Calc Pharmacy 55.4; Estimated Glomerular Filt Rate > 60; Glucose Random 85 mg/dL (60-115); Lipase 32 U/L (8-78); Potassium 4.1 mmol/L (3.3-5.1); Sodium 141 mmol/L (135-145)
[2024-02-05 19:55] LABS: Troponin-I High Sensitivity < 2.7 ng/L (<3.5-35.0)
[2024-02-05 23:47] LABS: Appearance Urine Clear; Color Urine Yellow; Glucose Urine UA Negative (Negative); Leukocyte Esterase Urine Trace (Negative); Nitrite Urine Negative (Negative); Specific Gravity - Urine 1.025 (1.005-1.025); UMIC TRIGGER UACC YES; Urine Blood Negative (Negative); Urine Ketones Negative (Negative); Urine Protein Trace mg/dL (Neg-Trace)
[2024-02-05 23:52] LABS: Bacteria Urine None Seen (None Seen); Hyaline Casts Urine 0-2 /LPF (0-2); RBC Urine 0-2 /HPF (0-2); Squamous Epithelial Cell Urine 0-2 /HPF (0-2); WBC Urine 0-5 /HPF (0-5)
[2024-02-06] MEDS: Magnesium Hydrox/Alum Hydrox 30 ML ORAL.SUSP PO (01:37)
== END 2024-02-06 11:54 | disposition home or self-care (01) ==
PROVIDERS: Emergency Provider Emergency Medicine; PCP Family Medicine
DX: R33.9 Retention of urine, unspecified (principal); R10.9 Unspecified abdominal pain; I10 Essential (primary) hypertension; J45.909 Unspecified asthma, uncomplicated; Z79.899 Other long term (current) drug therapy
CPT/HCPCS: 36415; 51702; 74176; 80048; 80076; 81001; 83690; 84484; 85025; 93005; 99284

== ENCOUNTER → 2024-02-05 18:47 | Outpatient (BNV) | payer MEDICARE, MEDICAID, SELFPAY | PROVIDERS: Emergency Provider Emergency Medicine; PCP Family Medicine; Visit Provider Internal Medicine Cardiovascular Disease | DX: R00.1 Bradycardia, unspecified (principal) | CPT/HCPCS: 93010 ==

== ENCOUNTER 2024-02-06 15:50 | Emergency (ER) | payer MEDICARE, MEDICAID, SELFPAY ==
--- NOTE | ~2024-02-06 | US_ITS ---
EXAMINATION: US RETROPERITONEAL LIMITED (RENAL ONLY) CLINICAL INFORMATION: Suprapubic pain. Check placement of the catheter. COMPARISON: CT abdomen pelvis dated 02/05/2024. TECHNIQUE: Real-time ultrasound of the kidneys and urinary bladder was performed. FINDINGS: RIGHT KIDNEY: 10.3 x 5 x 5.1 cm (SAG x AP x TRV). The kidney is normal in size, contour, and echogenicity. Renal cortical thickness is normal. No calculi or focal parenchymal lesions. No hydronephrosis. LEFT KIDNEY: 10.6 x 5.1 x 4.9 cm (SAG x AP x TRV). The kidney is normal in size, contour, and echogenicity. Renal cortical thickness is normal. No calculi. There is a 0.6 x 0.4 x 0.5 cm interpolar region cyst which requires no further evaluation. No hydronephrosis. The urinary bladder is collapsed around a Henry catheter. US/US renal BI IMPRESSION: The urinary bladder is collapsed around a Henry catheter. Small left renal cyst. No hydronephrosis bilaterally.
[2024-02-06 15:59] VITALS: BP 103/47; PULSE 65; RESP 18; TEMP 36.6; O2SAT 100; BMI 36.9
--- NOTE | 2024-02-06 16:07 | ED.GENADULT ---
HPI - General Adult General Chief complaint: Abdominal Pain Stated complaint: lower abd pain and pain with urination Time Seen by Provider: 02/06/24 16:45 Source: patient Mode of arrival: ambulatory Limitations: other (AS[employer] video child and family services specialist used ) History of Present Illness ED Provider: Susan ROSE HPI narrative: 63 yo male to female transgender who goes by the name of Ashley araiza urinary retention, UTI presents w/ inability to void and pain to urinary catheter X 2 days . Was seen here yesterday where they placed a urinary catheter. Reports suprapubic abd discomfort. No fevers, chills, nausea, vomiting, headache, vision changes, dizziness, weakness, cp, sob. Has not yet seen urology. Denies blood in urine. Related Data Home Medications ?Medication ?Instructions ?Recorded ?Confirmed famotidine 20 mg tablet 20 mg PO BID 11/10/23 ondansetron HCl 4 mg tablet 4 mg PO Q8H PRN nausea/vomiting 11/10/23 sucralfate 1 gram tablet 1 g PO QID 11/10/23 Previous Rx's ?Medication ?Instructions ?Recorded polyethylene glycol 3350 17 17 g PO BID #238 grams 11/12/23 gram/dose oral powder (Miralax) benzonatate 200 mg capsule 200 mg PO TID PRN cough #20 caps 01/21/24 tramadol 50 mg tablet 50 mg PO Q6H PRN pain #20 tabs 01/21/24 alfuzosin 10 mg tablet,extended 10 mg PO BEDTIME 30 days #30 tabs 01/29/24 release 24 hr Allergies Allergy/AdvReac Type Severity Reaction Status Date / Time No Known Allergies Allergy Verified 02/06/24 16:07 [No Known Allergies*] Review of Systems Review of Systems: Yes all other systems are reviewed and are negative PMFSH Past Medical History Attestation statement: The following information was validated with the patient. Source: old records reviewed and nursing notes reviewed Medical History Personality disorder 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 Asthma Gender dysphoria Bradycardia Renal calculi Degenerative disc disease, lumbar Lumbar spinal stenosis Hearing impaired Hypertension Depression Surgical History H/O cervical spine surgery History of esophagogastroduodenoscopy (EGD) H/O colonoscopy Family History Family History Other No known health problems Social History Social History Household Members Other:: roommate Are you a primary animal caretaker to a significant other at home: No Do you presently have visiting nurse or other home services: No Alcohol intake: never Comment: overflow Patient Tobacco Use Status: Never used Tobacco Smoked in Last 30 Days: No Use of substances other than those prescribed or required for medical reasons: No Advance Directives: No Advance Directives Information Provided: No Do you have a plan to hurt others: No Plan Current occupational status: disabled Current occupation: right handed Physical Exam ED Vital Signs: Vital Signs - 24 hr 02/06/24 15:59 02/06/24 19:17 02/06/24 20:52 Temperature 98 F 98.2 F 98.8 F Pulse Rate 65 67 63 Respiratory Rate 18 18 16 Blood Pressure 103/47 L 111/55 L 118/49 L Pulse Oximetry 100 98 95 Oxygen Delivery Method Room Air Room Air 02/06/24 21:20 Temperature 98.9 F Pulse Rate 65 Respiratory Rate 16 Blood Pressure 117/63 Pulse Oximetry 95 Oxygen Delivery Method Room Air BMI result Body Mass Index 36.9 vss Appearance: Alert.? Oriented X3.? No acute distress.? Head: Normocephalic, atraumatic, no step-offs or deformities Eyes: Pupils equal, round and reactive to light.? Neck: Normal inspection.? Neck supple.? CVS: Normal heart rate and rhythm.? Pulses normal.? Respiratory: No respiratory distress.? Breath sounds normal.? Abdomen: Soft and nontender.? Skin: Skin warm and dry.? Normal skin color.? Normal skin turgor.? Extremities: No lower extremity edema.? No calf ttp. 5/5 strength to bilateral upper and lower extremities Back: No midline tenderness, no C-spine tenderness, full range of motion, no CVA tenderness bilaterally Neuro: Oriented X 3.? No motor deficit.? No sensory deficit. CN 2-12 intact Course Course Course Narrative: RME performed by Lorrie Palumbo PA-C. Patient is a 63 year old assigned male at presenting to the emergency department with abdominal pain secondary to urinary retention. Detailed physical exam and review of systems are deferred to the primary montessori teacher. emts made aware. Reevaluation(s) Reevaluation #1: Patient with slight leukocytosis no left shift. This is likely reactive. Unlikely infectious. Chemistry unremarkable. Normal lipase. UA pending Time: 17:45 Reevaluation #2: Urine without infection. Renal bilateral ultrasound with urinary bladder collapsed around the Rondon catheter. Small left renal cyst. Rondon catheter has been draining. Free of blood. No hydronephrosis. Patient feeling better. Insole Toe Snipping Machine Operator used for disposition. Patient to be discharged home encouraged to follow up with Urology Educated patient on diagnosis and treatment plan, answered all question, patient verbalizes understanding. At this time patient will be discharged home, advised to return with new or worsening symptoms. Educated on worrisome signs and symptoms and when to return. At this time I feel comfortable discharge home. Time: 21:34 Medications Administered Discontinued Medications Generic Name Dose Route Start Last Admin Trade Name Freq PRN Reason Stop Dose Admin Ketorolac Tromethamine 30 mg 02/06/24 18:21 02/06/24 18:46 Ketorolac Tromethamine 15 Mg/Ml Vial IM 02/06/24 18:22 30 mg ONCE ONE Administration Medical Decision Making Medical Decision Making [facility] Narrative: 1711 63 year old transgender female presents w/ urinary sx x 2 days had a rondon placed yesterday due to retention PE suprapubic discomfort hx and pe concerning for bladder spasms, UTI, kidney stone. Unlikley acute abdomen, pylo, sepsis. Unlikley metabolic derangments. Plan labs, urine, us, ua Differential Diagnosis Differential Diagnoses: The differential diagnosis associated with the presentation includes hx and pe concerning for bladder spasms, UTI, kidney stone. Unlikley acute abdomen, pylo, sepsis. Unlikley metabolic derangments. Admission/Observation Consideration of admission/observation: Escalation of care including admission/observation considered Lab Data 02/06/24 17:16 02/06/24 17:16 Labs: Lab Results 02/06/24 02/06/24 Range/Units 17:16 19:20 WBC 12.0 H (4.8-10.8) X10*3/uL RBC 4.71 (4.60-5.80) X10*6/uL Hgb 15.0 (14.0-18.0) g/dl Hct 41.2 L (42.0-52.0) % MCV 87.5 (80.0-98.0) fL MCH 31.8 (27.0-33.0) pg MCHC 36.4 H (31.0-36.0) g/dl RDW 12.9 (11.0-16.0) % Plt Count 179 (160-400) X10*3/uL MPV 9.9 (9.4-12.4) fL Immature Gran % (Auto) 0.6 H (0.0-0.4) % Neut % (Auto) 78.9 H (45-73) % Lymph % (Auto) 10.8 L (20-40) % [place] % (Auto) 8.0 (2-11) % Eos % (Auto) 1.6 (0-4) % Baso % (Auto) 0.1 (0-2) % Lymph # (Auto) 1.3 (1.2-4.9) X10*3/uL [place] # (Auto) 1.0 (0.1-1.2) X10*3/uL Eos # (Auto) 0.2 (0.0-0.4) X10*3/uL Baso # (Auto) 0.0 (0.0-0.2) X10*3/uL Abs Immat Gran (auto) 0.07 H (0.00-0.03) X10*3/uL Absolute Neuts (auto) 9.4 H (2.0-8.3) x10*3/uL Absolute Nucleated RBC 0.000 (0.0-0.012) X10*3/uL Nucleated RBC % (auto) 0.0 (0.0-0.2) /100WBC PT 12.5 (11.1-13.3) SEC INR 1.0 (0.9-1.1) Sodium 140 (135-145) mmol/L Potassium 4.3 (3.3-5.1) mmol/L Chloride 108 (96-108) mmol/L Carbon Dioxide 25 (22-29) mmol/L Anion Gap 11 L (12-20) BUN 16 (9-16) mg/dL Creatinine 0.99 (0.5-1.4) mg/dL Estim Creat Clear Calc 70.3 Estimated GFR > 60 Random Glucose 97 (60-115) mg/dL Calcium 9.4 (8.4-10.2) mg/dL Magnesium 2.1 (1.6-2.6) mg/dL Total Bilirubin 0.8 (0.0-1.0) mg/dL AST 16 (5-37) U/L ALT 20 (0-40) U/L Alkaline Phosphatase 63 (39-117) U/L Total Protein 7.3 (6.5-8.0) g/dL Albumin 4.2 (3.5-5.0) g/dL Lipase 27 (8-78) U/L Urine Color Yellow Urine Appearance Cloudy Urine pH 6.5 (5.0-9.0) Ur Specific [place] 1.020 (1.005-1.025) Urine Protein 100 (2+) H (Neg-Trace) mg/dL Urine Glucose (UA) Negative (Negative) mg/dL Urine Ketones 15 (Negative) mg/dL Urine Blood Large (3+) H (Negative) Urine Nitrite Negative (Negative) Ur Leukocyte Esterase Large (3+) H (Negative) Urine RBC >20 H (0-2) /HPF Urine WBC >50 H (0-5) /HPF Ur Squamous Epith Cells 3-5 (0-2) /HPF Urine Bacteria None Seen (None Seen) Hyaline Casts 3-5 (0-2) /LPF Discharge Plan Discharge Clinical Impression: Bladder spasm, Dysuria Patient Disposition: Home, Self-Care Additional Instructions: Take your medications as prescribed. If you were prescribed antibiotics today, it is important that you take your medication to their entirety, do not skip any doses, do not finish them early. Follow-up with your primary care provider this week. Return to the emergency department with new or worsening symptoms. Such as fevers, chills, chest pain, shortness of breath, nausea, vomiting, dizziness, headache, vision changes, lethargy In case of emergency call 911 Please follow-up with urology call tomorrow to schedule an appointment. US/US renal BI IMPRESSION: The urinary bladder is collapsed around a Rondon catheter. Small left renal cyst. No hydronephrosis bilaterally. Prescriptions: No Action sucralfate 1 gram tablet 1 g PO QID ondansetron HCl 4 mg tablet 4 mg PO Q8H PRN (Reason: nausea/vomiting) famotidine 20 mg tablet 20 mg PO BID polyethylene glycol 3350 [Miralax] 17 gram/dose powder 17 g PO BID Qty: 238 0RF benzonatate 200 mg capsule 200 mg PO TID PRN (Reason: cough) Qty: 20 0RF tramadol 50 mg tablet 50 mg PO Q6H PRN (Reason: pain) Qty: 20 0RF alfuzosin 10 mg tablet extended release 24 hr 10 mg PO BEDTIME 30 Days Qty: 30 2RF Rx Instructions: Take before bedtime Referrals: [facility] [place] Urology Services [Provider Group] - 2 days Physician,Unknown J [Primary Care Provider] - 2 days Print Language: Andorran Sign Language
[2024-02-06 17:23] LABS: MANUAL DIFF FLAG NO
[2024-02-06 17:27] LABS: Basophils Percent Auto 0.1 % (0-2); Eosinophils Absolute Auto 0.2 X10*3/uL (0.0-0.4); Eosinophils Percent Auto 1.6 % (0-4); Hematocrit 41.2 % (42.0-52.0); Imm Gran Abs Auto 0.07 X10*3/uL (0.00-0.03); Imm Gran Pct Auto 0.6 % (0.0-0.4); Lymphocytes Absolute Auto 1.3 X10*3/uL (1.2-4.9); Lymphocytes Percent Auto 10.8 % (20-40); Mean Corpuscular HGB Conc 36.4 g/dl (31.0-36.0); Mean Corpuscular Hemoglobin 31.8 pg (27.0-33.0); Mean Corpuscular Volume 87.5 fL (80.0-98.0); Mean Platelet Volume 9.9 fL (9.4-12.4); Neutrophils Absolute Auto 9.4 x10*3/uL (2.0-8.3); Neutrophils Percent Auto 78.9 % (45-73); Platelet Count 179 X10*3/uL (160-400); Red Blood Count 4.71 X10*6/uL (4.60-5.80); Red Cell Distribution Width 12.9 % (11.0-16.0)
[2024-02-06 17:33] LABS: Prothrombin Time 12.5 SEC (11.1-13.3)
[2024-02-06 17:39] LABS: Alanine Aminotransferase 20 U/L (0-40); Albumin Level 4.2 g/dL (3.5-5.0); Alkaline Phosphatase 63 U/L (39-117); Anion Gap 11 (12-20); Aspartate Amino Transferase 16 U/L (5-37); Bilirubin Total 0.8 mg/dL (0.0-1.0); Blood Urea Nitrogen 16 mg/dL (9-16); Calcium 9.4 mg/dL (8.4-10.2); Carbon Dioxide 25 mmol/L (22-29); Chloride 108 mmol/L (96-108); Creatinine Clr Calc Pharmacy 70.3; Estimated Glomerular Filt Rate > 60; Glucose Random 97 mg/dL (60-115); Lipase 27 U/L (8-78); Magnesium 2.1 mg/dL (1.6-2.6); Potassium 4.3 mmol/L (3.3-5.1); Sodium 140 mmol/L (135-145); Total Protein 7.3 g/dL (6.5-8.0)
[2024-02-06] MEDS: Ketorolac Tromethamine 15 MG/ML VIAL 30 MG IM (18:46)
[2024-02-06 19:17] VITALS: BP 111/55; PULSE 67; RESP 18; TEMP 36.8; O2SAT 98
[2024-02-06 19:26] LABS: Appearance Urine Cloudy; Color Urine Yellow; Glucose Urine UA Negative (Negative); Leukocyte Esterase Urine Large (3+) (Negative); Nitrite Urine Negative (Negative); PH 6.5 (5.0-9.0); UMIC TRIGGER UACC YES; Urine Blood Large (3+) (Negative); Urine Ketones 15 mg/dL (Negative); Urine Protein 100 (2+) mg/dL (Neg-Trace)
[2024-02-06 20:52] VITALS: BP 118/49; PULSE 63; RESP 16; TEMP 37.1; O2SAT 95
[2024-02-06 21:18] LABS: Bacteria Urine None Seen (None Seen); RBC Urine >20 /HPF (0-2); UACC Culture Trigger YES; WBC Urine >50 /HPF (0-5)
[2024-02-06 21:20] VITALS: BP 117/63; PULSE 65; RESP 16; TEMP 37.2; O2SAT 95
== END 2024-02-06 22:01 | disposition home or self-care (01) ==
PROVIDERS: Physician Assistant; Emergency Provider Emergency Medicine
DX: R30.0 Dysuria (principal); R10.30 Lower abdominal pain, unspecified; N32.89 Other specified disorders of bladder; Z79.899 Other long term (current) drug therapy
CPT/HCPCS: 36415; 76775; 80053; 81001; 83690; 83735; 85025; 85610; 87086; 96372; 99284; J1885

== ENCOUNTER → 2024-02-09 13:36 | Outpatient (BNVA) | payer MEDICARE, MEDICAID, SELFPAY | PROVIDERS: Visit Provider Nurse Practitioner Family ==

== ENCOUNTER 2024-02-16 12:56 | Outpatient (AMB) | payer MEDICARE, MEDICAID, SELFPAY ==
--- NOTE | 2024-02-16 13:15 | AM.OFFVISNUR ---
Intake Visit Reasons: bladder pain/ incomplete emptying Allergies No Known Allergies [No Known Allergies*] Allergy (Verified 02/06/24 16:07) Office Procedures Bladder/Catheter Procedure Details: Bladder scanned for [address] 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 Per Dr. Barone due to patient abdomen being distended place a rondon catheter, if abdomen swelling does not decrease advise to go to ER for further testing/workup. Explained all information to patient using ASL welder gun, patient agreeable to have rondon catheter placed. 16 fr rondon catheter 10ml balloon and blue plug placed, patient tolerated well. Emptied bladder of approximately 280mls. Patient abdomen still distended with discomfort, advising per Dr. Barone to go to ER for further evaluation. Patient UA nitrate postitive. Dr. aBrone will send bactrim for patient. Patient understood abx will be sent once clarification of dose and duration confirmed with provider and to seek ER care for further evaluation on abdomen distention and discomfort. Patient agreeable with plan at this time. 1 week voiding trial to be scheduled at check out, and patient to go to ER for evaluation [id number] Temporary Bladder Catheter Procedure code (CPT) selection complete Post Void Residual Post Residual Void Details: Patient presnts to office for PVR after calling in to report feelings of fullness, foul odor and discomfort. Bladder scanned for 284 mls. Post Void Residual (PVR): [id number] Void Residual by ultrasound Results AMB Urinalysis, Automated UA Leukoctes 500 Lewis/uL Last Edit by Enrico Rogel LPN on 02/16/24 14:02 UA Nitrite Positive Last Edit by Enrico Rogel LPN on 02/16/24 14:02 UA Urobilinogen 0.2 mg/dL Last Edit by Enrico Rogel LPN on 02/16/24 14:02 UA Protein 30 mg/dL Last Edit by Enrico Rogel LPN on 02/16/24 14:02 UA pH 6.0 Last Edit by Enrico Rogel LPN on 02/16/24 14:02 UA Blood 200 Kashif/uL Last Edit by Enrico Rogel LPN on 02/16/24 14:02 UA Specific [place] 1.020 Last Edit by Enrico Rogel LPN on 07/08/24 14:02 UA Ketone Negative Last Edit by Enrico Rogel LPN on 02/16/24 14:02 UA Bilirubin 0 mg/dL Last Edit by Enrico Rogel LPN on 02/16/24 14:02 UA Glucose 0 mg/dL Last Edit by Enrico Rogel LPN on 02/16/24 14:02 Assessment & Plan Assessment & Plan Orders: Orders AMB Post Void Residual by ultrasound Today N32.89 - Other specified disorders of bladder, N39.0 - Urinary tract infection, site not specified, R33.9 - Retention of urine, unspecified, R39.12 - Poor urinary stream, R97.20 - Elevated prostate specific antigen [PSA] AMB Bladder/Catheter Procedure Today N39.0 - Urinary tract infection, site not specified, R33.9 - Retention of urine, unspecified, R39.12 - Poor urinary stream AMB Urinalysis Automated Today N39.0 - Urinary tract infection, site not specified Urine Culture Today N32.89 - Other specified disorders of bladder, N39.0 - Urinary tract infection, site not specified, N40.0 - Benign prostatic hyperplasia without lower urinary tract symptoms, R33.9 - Retention of urine, unspecified, R39.12 - Poor urinary stream, R97.20 - Elevated prostate specific antigen [PSA]
== END 2024-02-16 14:29 | disposition home or self-care (01) ==
LOC: HO.HUSH 12:56
PROVIDERS: Visit Provider Urology
DX: N39.0 Urinary tract infection, site not specified (principal)

== ENCOUNTER 2024-02-16 12:56 | Outpatient (REF) | payer MEDICARE, SELFPAY | END 2024-02-16 12:57 | disposition home or self-care (01) | LOC: HO.LAB 12:56 | PROVIDERS: Visit Provider Urology | DX: N39.0 Urinary tract infection, site not specified (principal); N32.89 Other specified disorders of bladder; N40.1 Benign prostatic hyperplasia with lower urinary tract symptoms; R39.12 Poor urinary stream; R33.8 Other retention of urine; R97.20 Elevated prostate specific antigen [PSA] | CPT/HCPCS: 51702; 51798; 81003; 87086; 87088; 87186 ==

== ENCOUNTER 2024-02-16 14:05 | Emergency (ER) | payer BC, MEDICAID, SELFPAY ==
[2024-02-16 15:10] VITALS: BP 126/75; PULSE 58; RESP 18; TEMP 35.6; O2SAT 98; BMI 36.6
[2024-02-16 15:29] LABS: MANUAL DIFF FLAG NO
[2024-02-16 15:37] LABS: Basophils Percent Auto 0.1 % (0-2); Eosinophils Absolute Auto 0.3 X10*3/uL (0.0-0.4); Eosinophils Percent Auto 2.9 % (0-4); Hematocrit 41.5 % (42.0-52.0); Hemoglobin 14.7 g/dl (14.0-18.0); Imm Gran Abs Auto 0.16 X10*3/uL (0.00-0.03); Imm Gran Pct Auto 1.8 % (0.0-0.4); Lymphocytes Percent Auto 22.4 % (20-40); Mean Corpuscular HGB Conc 35.4 g/dl (31.0-36.0); Mean Corpuscular Hemoglobin 31.2 pg (27.0-33.0); Mean Corpuscular Volume 88.1 fL (80.0-98.0); Monocytes Absolute Auto 0.9 X10*3/uL (0.1-1.2); Monocytes Percent Auto 9.7 % (2-11); Neutrophils Absolute Auto 5.6 x10*3/uL (2.0-8.3); Neutrophils Percent Auto 63.1 % (45-73); Platelet Count 223 X10*3/uL (160-400); Red Blood Count 4.71 X10*6/uL (4.60-5.80); Red Cell Distribution Width 12.8 % (11.0-16.0); White Blood Count 8.9 X10*3/uL (4.8-10.8)
[2024-02-16 15:47] LABS: Alanine Aminotransferase 19 U/L (0-40); Albumin Level 4.3 g/dL (3.5-5.0); Alkaline Phosphatase 62 U/L (39-117); Anion Gap 11 (12-20); Aspartate Amino Transferase 15 U/L (5-37); Bilirubin Total 0.3 mg/dL (0.0-1.0); Blood Urea Nitrogen 21 mg/dL (9-16); Carbon Dioxide 23 mmol/L (22-29); Chloride 110 mmol/L (96-108); Creatinine Clr Calc Pharmacy 76.8; Estimated Glomerular Filt Rate > 60; Glucose Random 95 mg/dL (60-115); Potassium 4.2 mmol/L (3.3-5.1); Sodium 140 mmol/L (135-145); Total Protein 7.4 g/dL (6.5-8.0)
[2024-02-16 21:04] LABS: Appearance Urine Turbid; Color Urine Yellow; Glucose Urine UA Negative (Negative); Leukocyte Esterase Urine Large (3+) (Negative); Nitrite Urine Negative (Negative); Specific Gravity - Urine 1.025 (1.005-1.025); UMIC TRIGGER UACC YES; Urine Blood Large (3+) (Negative); Urine Ketones Negative (Negative); Urine Protein 300 (3+) mg/dL (Neg-Trace)
--- NOTE | 2024-02-16 21:16 | ED.GENADULT ---
HPI - General Adult General Chief complaint: General Medical Stated complaint: Contact urology Time Seen by Provider: 02/16/24 21:15 Source: patient Mode of arrival: wheelchair Limitations: language barrier (ASL used) History of Present Illness ED Provider: lesa HAM narrative: Patient Came from Urology status post Henry catheter placement for urinary retention noted to have foul-smelling urine patient is transitioning from male to female took cefuroxime on 01/21 for 7 days urine grew E coli in the past, no fever no chills no nausea no vomiting Related Data Home Medications ?Medication ?Instructions ?Recorded ?Confirmed famotidine 20 mg tablet 20 mg PO BID 11/10/23 ondansetron HCl 4 mg tablet 4 mg PO Q8H PRN nausea/vomiting 11/10/23 sucralfate 1 gram tablet 1 g PO QID 11/10/23 Previous Rx's ?Medication ?Instructions ?Recorded polyethylene glycol 3350 17 17 g PO BID #238 grams 11/12/23 gram/dose oral powder (Miralax) benzonatate 200 mg capsule 200 mg PO TID PRN cough #20 caps 01/21/24 tramadol 50 mg tablet 50 mg PO Q6H PRN pain #20 tabs 01/21/24 terazosin 2 mg capsule 2 mg PO BEDTIME 30 days #30 caps 02/09/24 nitrofurantoin 100 mg PO BID #20 caps 02/16/24 monohydrate/macrocrystals 100 mg capsule (Macrobid) Allergies Allergy/AdvReac Type Severity Reaction Status Date / Time No Known Allergies Allergy Verified 02/16/24 15:15 [No Known Allergies*] Review of Systems Review of Systems: Yes all other systems are reviewed and are negative PMFSH Past Medical History Medical History Personality disorder 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 Asthma Gender dysphoria Bradycardia Renal calculi Degenerative disc disease, lumbar Lumbar spinal stenosis Hearing impaired Hypertension Depression Surgical History H/O cervical spine surgery History of esophagogastroduodenoscopy (EGD) H/O colonoscopy Family History Family History Other No known health problems Social History Social History Household Members Other:: roommate Are you a primary critical care physician assistant to a significant other at home: No Do you presently have visiting nurse or other home services: No Alcohol intake: never Comment: overflow Patient Tobacco Use Status: Never used Tobacco Advance Directives: No Advance Directives Information Provided: No Do you have a plan to hurt others: No Plan Current occupational status: disabled Current occupation: right handed Physical Exam ED Vital Signs: Vital Signs - 24 hr 02/16/24 15:10 Temperature 96.1 F L Pulse Rate 58 Respiratory Rate 18 Blood Pressure 126/75 Pulse Oximetry 98 Oxygen Delivery Method Room Air BMI result Body Mass Index 36.6 Appearance: Alert. Oriented X3. No acute distress. Eyes: PERRLA, No Nystagmus ENT: Pharynx normal. Oral Mucosa moist Neck: Normal inspection. Neck supple. CVS: Normal heart rate and rhythm. Pulses normal. Respiratory: No respiratory distress. Equal air entry bilateral, no wheezing/rales/rhonchi Abdomen: Soft and nontender. Bowel sounds are present, no mass palpable, no CVA tenderness Skin: Skin warm and dry. Normal skin color. Normal skin turgor. Extremities: No lower extremity edema. No calf tenderness Neuro: Oriented X 3. No motor deficit. Medications Administered Discontinued Medications Generic Name Dose Route Start Last Admin Trade Name Freq PRN Reason Stop Dose Admin Nitrofurantoin Macrocrystals 100 mg 02/16/24 21:42 02/16/24 21:52 Nitrofurantoin Monohyd/M-Cryst 100 Mg Capsule PO 02/16/24 21:43 100 mg ONCE ONE Administration Medical Decision Making Medical Decision Making [facility] Narrative: Patient with chronic UTI with symptoms on cefuroxime previous E coli sensitive to cefuroxime which she finished 2 weeks ago will start on Macrobid for chronic UTI Lab Data [facility] Lab Attestation statement: I reviewed the patient's lab results. 02/16/24 15:26 02/16/24 15:26 Labs: Lab Results 02/16/24 02/16/24 Range/Units 15:26 20:48 WBC 8.9 (4.8-10.8) X10*3/uL RBC 4.71 (4.60-5.80) X10*6/uL Hgb 14.7 (14.0-18.0) g/dl Hct 41.5 L (42.0-52.0) % MCV 88.1 (80.0-98.0) fL MCH 31.2 (27.0-33.0) pg MCHC 35.4 (31.0-36.0) g/dl RDW 12.8 (11.0-16.0) % Plt Count 223 (160-400) X10*3/uL MPV 10.0 (9.4-12.4) fL Immature Gran % (Auto) 1.8 H (0.0-0.4) % Neut % (Auto) 63.1 (45-73) % Lymph % (Auto) 22.4 (20-40) % Dickey % (Auto) 9.7 (2-11) % Eos % (Auto) 2.9 (0-4) % Baso % (Auto) 0.1 (0-2) % Lymph # (Auto) 2.0 (1.2-4.9) X10*3/uL Dickey # (Auto) 0.9 (0.1-1.2) X10*3/uL Eos # (Auto) 0.3 (0.0-0.4) X10*3/uL Baso # (Auto) 0.0 (0.0-0.2) X10*3/uL Abs Immat Gran (auto) 0.16 H (0.00-0.03) X10*3/uL Absolute Neuts (auto) 5.6 (2.0-8.3) x10*3/uL Absolute Nucleated RBC 0.000 (0.0-0.012) X10*3/uL Nucleated RBC % (auto) 0.0 (0.0-0.2) /100WBC Sodium 140 (135-145) mmol/L Potassium 4.2 (3.3-5.1) mmol/L Chloride 110 H (96-108) mmol/L Carbon Dioxide 23 (22-29) mmol/L Anion Gap 11 L (12-20) BUN 21 H (9-16) mg/dL Creatinine 0.89 (0.5-1.4) mg/dL Estim Creat Clear Calc 76.8 Estimated GFR > 60 Random Glucose 95 (60-115) mg/dL Calcium 10.0 D (8.4-10.2) mg/dL Total Bilirubin 0.3 (0.0-1.0) mg/dL AST 15 (5-37) U/L ALT 19 (0-40) U/L Alkaline Phosphatase 62 (39-117) U/L Total Protein 7.4 (6.5-8.0) g/dL Albumin 4.3 (3.5-5.0) g/dL Urine Color Yellow Urine Appearance Turbid Urine pH 6.0 (5.0-9.0) Ur Specific [place] 1.025 (1.005-1.025) Urine Protein 300 (3+) H (Neg-Trace) mg/dL Urine Glucose (UA) Negative (Negative) mg/dL Urine Ketones Negative (Negative) mg/dL Urine Blood Large (3+) H (Negative) Urine Nitrite Negative (Negative) Ur Leukocyte Esterase Large (3+) H (Negative) Urine RBC >20 H (0-2) /HPF Urine WBC >50 H (0-5) /HPF Ur Squamous Epith Cells 3-5 (0-2) /HPF Urine Bacteria 1+ (None Seen) Hyaline Casts 0-2 (0-2) /LPF Discharge Plan Discharge Clinical Impression: Recurrent UTI Patient Disposition: Home, Self-Care Instructions: Urinary Tract Infection in Men (ED) Additional Instructions: Drink plenty of fluids Take antibiotics as prescribed Prescriptions: New nitrofurantoin monohyd/m-cryst [Macrobid] 100 mg capsule 100 mg PO BID Qty: 20 0RF Rx Instructions: must administer with a meal/food No Action sucralfate 1 gram tablet 1 g PO QID ondansetron HCl 4 mg tablet 4 mg PO Q8H PRN (Reason: nausea/vomiting) famotidine 20 mg tablet 20 mg PO BID terazosin 2 mg capsule 2 mg PO BEDTIME 30 Days Qty: 30 0RF polyethylene glycol 3350 [Miralax] 17 gram/dose powder 17 g PO BID Qty: 238 0RF benzonatate 200 mg capsule 200 mg PO TID PRN (Reason: cough) Qty: 20 0RF tramadol 50 mg tablet 50 mg PO Q6H PRN (Reason: pain) Qty: 20 0RF Print Language: Taiwanese Sign Language
[2024-02-16 21:23] LABS: Bacteria Urine 1+ (None Seen); Hyaline Casts Urine 0-2 /LPF (0-2); RBC Urine >20 /HPF (0-2); UACC Culture Trigger YES; WBC Urine >50 /HPF (0-5)
[2024-02-16] MEDS: Nitrofurantoin Monohyd/M-Cryst 100 MG CAPSULE PO (21:52)
[2024-02-16 22:00] VITALS: BP 124/74; PULSE 60; RESP 18; TEMP 36.2; O2SAT 97
[2024-02-16 22:01] VITALS: BP 139/74; PULSE 59; RESP 16; TEMP 36.6; O2SAT 95
== END 2024-02-16 22:01 | disposition home or self-care (01) ==
PROVIDERS: Physician Assistant; Emergency Provider Internal Medicine
DX: N39.0 Urinary tract infection, site not specified (principal); Z79.899 Other long term (current) drug therapy
CPT/HCPCS: 36415; 80053; 81001; 81003; 85025; 99283; 99284

== ENCOUNTER 2024-02-23 11:11 | Outpatient (AMB) | payer BC, MEDICAID, SELFPAY ==
--- NOTE | 2024-02-23 11:39 | MHC.OFFVIS ---
Vital Signs 02/23/24 11:54 Height 5 ft 1 in Weight 194 lb 14.218 oz BMI 36.8 BP 94/58 L Blood Pressure Location Rt brachial Position Sitting Pulse 66 Pulse Source Pulse Oximeter Pulse Oximetry (%) 97 Oxygen Delivery Method Room Air Intake Visit Reasons: Abdominal pain/colonoscopy Intake Note: Ashley presents in office today for a scheduled colo s/p scrn. CC; This s/p is supposed to be a recall colo after their last s/p with Dr. Nelson in 2009. Pt has also been having difficulty with abdominal bloating and discomfort possibly related to chronic UTI they have been managing with urology. Pt denies any difficulties with their bowel movements at this time. [employer] Developer Required: Yes [employer] Developer Services: [employer] Ax Developer Present [employer] Ax Developer Name: [id number] Meghan. Talavera [id number] Information Interpreted: non-clinical & clinical Accompanied by: Friend Allergies No Known Allergies [No Known Allergies*] Allergy (Verified 02/23/24 11:53) HPI HPI Abdominal pain/colonoscopy: Details: 64 year old? male born at , transitioning to female is here today for pre colonoscopy screening.? Patient was sent to us by her PCP.? Last colonoscopy?in 2009, no polyps found. Patient was supposed to follow-up in 2019. Patient is accompanied by his friend. Both patient and his friend are communicating with sign maker. Patient denies any gastrointestinal symptoms in the past or at present.? However he/she is complaining of lower abdominal bloating, patient attributing this to frequent urinary tract infections. Patient has seen urology. Occasional acid reflux, currently not on any PPI. Denies any personal or family history of gastrointestinal disease, colon polyps, or CRC.? Denies history of difficulty with sedation or anesthesia in the past.? Negative for history of sleep apnea.? Denies any history of cardiac, renal, pulmonary, or hepatic disease.?? No history of infectious? diseases like hepatitis A, B, C, HIV or tuberculosis.? Patient is not on any anticoagulation [facility] Medical History Personality disorder 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 Asthma Gender dysphoria Bradycardia Renal calculi Degenerative disc disease, lumbar Lumbar spinal stenosis Hearing impaired Hypertension Depression Surgical History H/O cervical spine surgery History of esophagogastroduodenoscopy (EGD) H/O colonoscopy Family History Other No known health problems Social History Household Members Other:: roommate Are you a primary live in caregiver to a significant other at home: No Do you presently have visiting nurse or other home services: No Alcohol intake: never Comment: overflow Patient Tobacco Use Status: Never used Tobacco Current occupational status: disabled Current occupation: right handed Review of Systems Const Denies weight gain and Denies weight loss ENT Reports no additional complaints, Denies dysphagia and Denies odynophagia Card Reports no additional complaints Resp Reports no additional complaints GI Denies abdominal pain, Denies belching, Denies melena, Denies bloating, Denies change in bowel habits, Denies dysphagia, Denies excessive flatus, Denies dyspepsia, Denies heartburn, Denies diarrhea, Denies loose stools, Denies nausea, Denies odynophagia and Denies vomiting Reports no additional complaints Musc Reports no additional complaints Neuro Reports no additional complaints Psych Reports no additional complaints Endo Reports no additional complaints Physical Exam Vital Signs: Last Vital Signs Pulse 66 02/23/24 11:54 BP 94/58 L 02/23/24 11:54 Pulse Ox 97 02/23/24 11:54 Oxygen Delivery Method Room Air 02/23/24 11:54 BMI result Body Mass Index 36.8 Const Other: Patient is ambulating using wheeled walker General: healthy appearing and no acute distress Nutritional Appearance: obese Orientation/consciousness: patient oriented x3 Resp Effort & Inspection: normal respiratory effort, able to speak in complete sentences, no tracheal deviation and symmetric chest movement Auscultation: clear to auscultation bilaterally Cardio Rate: regular rate GI Inspection: Yes normal to inspection, No distended and Yes obesity Palpation (GI): Soft to palpation, not firm, nontender and No hepatosplenomegaly present Auscultation: normal bowel sounds General: Yes no CVA tenderness Back/Spine/Pelvis Back: no CVA tenderness Skin General skin exam: elasticity normal, turgor normal and dry skin Neuro General: patient oriented x3 Psych Appearance: grossly normal Mental Status: mental status grossly normal Assessment & Plan Assessment & Plan (1) Screen for colon cancer: Code(s): Z12.11 - Encounter for screening for malignant neoplasm of colon Plan Patient denies any cardiac or respiratory symptoms.? Denies any issues with anesthesia in the past.? Denies any history of sleep apnea.? No history infectious diseases in the past or present.? Not on any anticoagulation therapy.? No family or personal history of colon cancer or polyps.? Patient denies melena, hematochezia, unintentional weight loss or ribbon like stools.? Discussed at length the pre-procedure,? prep, diet & medications as well as what to expect prior, during and after the procedure.?? Stressed the importance of good bowel prep.? Recommended the use of Vaseline or Calmoseptine OTC & baby wipes with bowel movements to promote comfort.? ?Patient verbalizes understanding and agrees to plan of care.? He/She was given the opportunity to ask questions and all questions answered.? We will see patient after the procedure.? Please use sign maker for all appointments Medications: New bisacodyl (Dulcolax (bisacodyl)) take 4 tabs at noon the day before your colonoscopy 20 mg (4 x 5 mg) PO ONCE 4 tabs 0RF 1 day Z12.11 - Encounter for screening for malignant neoplasm of colon polyethylene glycol 3350 (Miralax) As directed by gastroenterology department at [facility] 238 grams PO ONCE 238 grams 0RF Z12.11 - Encounter for screening for malignant neoplasm of colon Coding Level of Care Code New Pt Level 3 (21873) Diagnoses Screen for colon cancer Z12.11 Time Spent (min) 40 Comment 30 minutes spent with patient and additional 10 minutes spent reviewing patient's records
[2024-02-23 11:54] VITALS: BP 94/58; PULSE 66; O2SAT 97; BMI 36.8
== END 2024-02-23 13:01 | disposition home or self-care (01) ==
PROVIDERS: Visit Provider Nurse Practitioner Family
DX: Z01.818 Encounter for other preprocedural examination (principal); Z12.11 Encounter for screening for malignant neoplasm of colon
CPT/HCPCS: S0285

== ENCOUNTER → 2024-02-23 11:11 | Outpatient (BNVA) | payer BC, MEDICAID, SELFPAY | PROVIDERS: Visit Provider Nurse Practitioner Family ==

== ENCOUNTER 2024-02-24 09:33 | Outpatient (AMB) | payer BC, MEDICAID, SELFPAY ==
--- NOTE | 2024-02-24 10:19 | AM.OFFVISNUR ---
Intake Visit Reasons: Voiding trial Allergies No Known Allergies [No Known Allergies*] Allergy (Verified 02/23/24 11:53) Nursing Note Patient presented to office with sales attendant for voiding trial. Translation via healthcare interpreter services on IPAD. Kane GARVIN also in room for education and visit with nursing. Patient did not complete abx therapy for UTI. Patient has complaints of feeling full, flank pain bilaterally, states does not feel well. Educated patient on the importance of finishing abx as prescribed in order to feel better and to clear infection. Inquired why patient did not call in office to let provider or nursing know that she did not want to take the abx due to GI upset. Patient stated she forgot because she has been under a lot of stress. Educated patient on proper use of blue plug for emptying catheter, importance of emptying the catheter as well. Patient stated she would like to be inpatient as nobody is helping her practice taking out the catheter and she does not have enough experience with it . Explained that the hospital does not keep people inpatient to empty catheter when they are mobile and able to empty bladder at home. Patient did not understand why that was the case and stated again she did not feel well. Let pt know that if she is not emptying bladder every few hours it will be very uncomfortable and can cause pain. Patient stated she understood. Patient also described bladder spasms and incontinence related to the catheter being in place. Educated patient on bladder emptying to reduce bladder spasms, finishing abx therapy as infections can cause bladder spasms and to avoid caffeine, spicy foods and acidic foods while the catheter is in. Patient stated she understood. Patient told healthcare interpreter that she could not read so she was unsure about medications and dose/frequency. Kane GARVIN reviewed all medications with patient to ensure proper understanding. Patient abx switched to bactrim per Cherry CONTENT STRATEGY LEAD-BC due to flank pain and c/o not feeling well while taking macrobid. Patient will get follow up call in 1 week to schedule appt for voiding trial if patient has finished abx therapy. Patient understood and agreeable with plan at this time. Assessment & Plan Assessment & Plan Orders: Orders AMB Urinalysis Automated Today N39.0 - Urinary tract infection, site not specified Medications: New sulfamethoxazole-trimethoprim 800-160 mg (Bactrim DS) 1 tab PO BID 14 tabs 0RF 7 days Discontinued nitrofurantoin monohyd/m-cryst 100 mg (Macrobid) must administer with a meal/food Discontinued Reason: Patient Refused 100 mg PO BID 20 caps 0RF
== END 2024-02-24 10:34 | disposition home or self-care (01) ==
LOC: HO.HUSH 09:33
PROVIDERS: Visit Provider Nurse Practitioner Family
DX: N39.0 Urinary tract infection, site not specified (principal)

== ENCOUNTER → 2024-02-24 09:33 | Outpatient (BNVA) | payer BC, MEDICAID, SELFPAY | PROVIDERS: Visit Provider Nurse Practitioner Family | DX: N39.0 Urinary tract infection, site not specified (principal) | CPT/HCPCS: 81003 ==

== ENCOUNTER → 2024-03-10 10:22 | Outpatient (BNVA) | payer MEDICARE, SELFPAY | PROVIDERS: Visit Provider Nurse Practitioner Family ==

== ENCOUNTER 2024-03-10 11:05 | Outpatient (REF) | payer MEDICARE, SELFPAY ==
[2024-03-10 13:35] LABS: PSA,Total (Free>4and<10) 5.27 ng/mL (0.00-4.00)
[2024-03-12 18:09] LABS: Free Prostate Spec Ag 0.8 ng/mL; Percent Free Prostate Spec Ag 15 % (calc) (>25); Prostate Specific Ag Total 5.4 ng/mL (< OR = 4.0)
== END 2024-03-10 11:06 | disposition home or self-care (01) ==
LOC: HO.10HDL 11:05
PROVIDERS: Visit Provider Nurse Practitioner Family
DX: R97.20 Elevated prostate specific antigen [PSA] (principal); N32.89 Other specified disorders of bladder; N39.0 Urinary tract infection, site not specified; N40.1 Benign prostatic hyperplasia with lower urinary tract symptoms; R39.12 Poor urinary stream; Z12.5 Encounter for screening for malignant neoplasm of prostate
CPT/HCPCS: 36415; 51700; 51798; 84153; 84154

== ENCOUNTER 2024-03-11 13:15 | Outpatient (REF) | payer MEDICARE, SELFPAY | END 2024-03-11 13:16 | disposition home or self-care (01) | LOC: HO.LAB 13:15 | PROVIDERS: Visit Provider Nurse Practitioner Family | DX: N40.0 Benign prostatic hyperplasia without lower urinary tract symptoms (principal); R97.20 Elevated prostate specific antigen [PSA]; N32.89 Other specified disorders of bladder; R39.12 Poor urinary stream; N39.0 Urinary tract infection, site not specified | CPT/HCPCS: 51798; 87086; 87088; 87186 ==

== ENCOUNTER → 2024-03-17 13:44 | Outpatient (BNVA) | payer OTHER, SELFPAY | PROVIDERS: Visit Provider Nurse Practitioner Family ==

== ENCOUNTER 2024-03-17 14:19 | Emergency (ER) | payer OTHER, SELFPAY ==
[2024-03-17 14:45] VITALS: BP 106/57; BP 107/70; PULSE 53; PULSE 66; RESP 16; TEMP 36.1; O2SAT 98; O2SAT 99; BMI 33.7
--- NOTE | 2024-03-17 14:45 | ED_ITS ---
HPI - Abdominal Pain General Chief Complaint: General Medical Stated Complaint: AB PAIN, SYNOPAL EPI, DEAF CAN ONLY SIGN Time Seen by Provider: 03/17/24 14:43 Source: patient Mode of arrival: ambulatory Limitations: language barrier History of Present Illness ED Provider: Dr. Edmond HPI narrative: 64-year-old male hearing impaired uses sign language for interpretation history of NSTEMI recurrent UTIs urinary retention and has had a Henry replaced multiple times past few days presents to the emergency department complaining of abdominal pain and dizziness. Patient was in the shower for an extended period of time and then when he came out he laid down on the bed there was no loss of conscious patient states abdominal pain that time he did have a Henry recently which was taken out since he has not been able to urinate like normal. Related Data Home Medications ?Medication ?Instructions ?Recorded ?Confirmed famotidine 20 mg tablet 20 mg PO BID 11/10/23 ondansetron HCl 4 mg tablet 4 mg PO Q8H PRN nausea/vomiting 11/10/23 sucralfate 1 gram tablet 1 g PO QID 11/10/23 alfuzosin 10 mg tablet,extended 10 mg PO DAILY 02/23/24 release 24 hr cetirizine 10 mg tablet 10 mg PO QAM 02/23/24 Previous Rx's ?Medication ?Instructions ?Recorded polyethylene glycol 3350 17 17 g PO BID #238 grams 11/12/23 gram/dose oral powder (Miralax) benzonatate 200 mg capsule 200 mg PO TID PRN cough #20 caps 01/21/24 tramadol 50 mg tablet 50 mg PO Q6H PRN pain #20 tabs 01/21/24 bisacodyl 5 mg tablet,delayed 20 mg (4 x 5 mg) PO ONCE 1 day #4 02/23/24 release (Dulcolax (bisacodyl)) tabs polyethylene glycol 3350 17 238 g PO ONCE #238 grams 02/23/24 gram/dose oral powder (Miralax) sulfamethoxazole 800 1 tab PO BID 7 days #14 tabs 03/11/24 mg-trimethoprim 160 mg tablet (Bactrim DS) terazosin 2 mg capsule 2 mg PO BEDTIME 30 days #30 caps 03/11/24 levofloxacin 500 mg tablet 500 mg PO DAILY 7 days #7 tabs 03/15/24 cefuroxime axetil 500 mg tablet 500 mg PO BID 7 days #14 tabs 03/17/24 Allergies Allergy/AdvReac Type Severity Reaction Status Date / Time No Known Allergies Allergy Verified 03/17/24 14:50 [No Known Allergies*] Review of Systems Review of Systems Review of systems: General: Patient denies any fever chills recent illness or falls Musculoskeletal: Denies back pain or body aches or other injuries HEENT: denies headache, runny nose, ear pain Respiratory: denies shortness of breath, cough Cardiovascular: no chest pain or palpitations : unable to urinate palpable bladder Abdomen: no nausea vomiting denies abdominal pain Extremities: no swelling, no pain Skin: no diaphoresis Yes all other systems are reviewed and are negative [facility] Past Medical History Medical History Personality disorder 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 Asthma Gender dysphoria Bradycardia Renal calculi Degenerative disc disease, lumbar Lumbar spinal stenosis Hearing impaired Hypertension Depression Surgical History H/O cervical spine surgery History of esophagogastroduodenoscopy (EGD) H/O colonoscopy Family History Family History Other No known health problems Social History Social History Household Members Other:: roommate Are you a primary career education teacher to a significant other at home: No Do you presently have visiting nurse or other home services: No Alcohol intake: never Comment: overflow Patient Tobacco Use Status: Never used Tobacco Advance Directives: No Advance Directives Information Provided: No Current occupational status: disabled Current occupation: right handed Physical Exam ED Vital Signs: Vital Signs - 24 hr 03/17/24 14:45 03/17/24 16:33 Temperature 97 F 98.1 F Pulse Rate 53 56 Respiratory Rate 16 Blood Pressure 106/57 L 116/42 L Pulse Oximetry 99 97 Oxygen Delivery Method Room Air Room Air BMI result Body Mass Index 33.7 Neurological exam: CN II- XII tested. Patient is alert and oriented to person place and time. Patient has no dysphagia or dysarthia, denies good vision in all four vision martinez no nystagmus on exam, good strength to upper and lower extremities with normal reflexes to brachioradialis, wrist, patella and achilles. Negative romberg, good finger to nose and heel to pérez. General: Well-appearing well-nourished in no signs of distress HEENT: Normocephalic atraumatic Neck: No signs of JVD, no masses no tenderness or lymphadenopathy Cardiovascular: Regular rate and rhythm Respiratory: Clear to auscultation bilaterally Abdomen: Soft nontender no masses Extremities: Normal pedal pulses no signs of edema Skin: Dry warm no rashes Back: No tenderness full ROM Course Course Course Narrative: 1657 Henry catheter was placed I will start the patient on cefuroxime patient did have signs of UTI I will send the patient home on cefuroxime patient and caregiver happy with the plan Medical Decision Making Medical Decision Making [facility] Narrative: I will send the patient over for Henry catheter insertion Differential Diagnosis Differential Diagnoses: The differential diagnosis associated with the presentation includes Acute urinary retention UTI dehydration electrolyte abnormality Consult Healthcare Provider Management of the patient was discussed with: Hospitalist Lab Data [facility] Lab Attestation statement: I reviewed the patient's lab results. Labs: Lab Results 03/17/24 Range/Units 16:40 Urine Color Yellow Urine Appearance Cloudy Urine pH 5.5 (5.0-9.0) Ur Specific [place] 1.020 (1.005-1.025) Urine Protein Trace (Neg-Trace) mg/dL Urine Glucose (UA) Negative (Negative) mg/dL Urine Ketones Negative (Negative) mg/dL Urine Blood Trace H (Negative) Urine Nitrite Negative (Negative) Ur Leukocyte Esterase Large (3+) H (Negative) Urine RBC 0-2 (0-2) /HPF Urine WBC >50 H (0-5) /HPF Ur Squamous Epith Cells 0-2 (0-2) /HPF Urine Bacteria None Seen (None Seen) Hyaline Casts 0-2 (0-2) /LPF Radiology Impression Discussion of test interpretation with radiology: I have reviewed the radiologist's reading. External Record Review External record reviewed: Inpatient record, Office record and Outpatient record Medications Administered Discontinued Medications Generic Name Dose Route Start Last Admin Trade Name Freq PRN Reason Stop Dose Admin Lidocaine HCl 10 ml 03/17/24 15:00 03/17/24 16:33 Lidocaine Hcl 2 % Urojet 10 Ml Jel.Pf.Tarah TOPICAL 03/17/24 15:01 10 ml ONCE ONE Administration Discharge Plan Discharge Clinical Impression: Acute on chronic urinary retention, Acute UTI Patient Disposition: Home, Self-Care Instructions: Urinary Retention in Men (ED), Urinary Tract Infection in Men (ED) Additional Instructions: You were seen today for abdominal pain on inability to urinate. You had labs and a Henry placed. You do have a UTI and prescribed antibiotics. If you have a fever or any other concerns please do not hesitate to come back to emergency department. Prescriptions: New cefuroxime axetil 500 mg tablet 500 mg PO BID 7 Days Qty: 14 0RF No Action sucralfate 1 gram tablet 1 g PO QID ondansetron HCl 4 mg tablet 4 mg PO Q8H PRN (Reason: nausea/vomiting) famotidine 20 mg tablet 20 mg PO BID terazosin 2 mg capsule 2 mg PO BEDTIME 30 Days Qty: 30 0RF levofloxacin 500 mg tablet 500 mg PO DAILY 7 Days Qty: 7 0RF polyethylene glycol 3350 [Miralax] 17 gram/dose powder 17 g PO BID Qty: 238 0RF benzonatate 200 mg capsule 200 mg PO TID PRN (Reason: cough) Qty: 20 0RF tramadol 50 mg tablet 50 mg PO Q6H PRN (Reason: pain) Qty: 20 0RF sulfamethoxazole-trimethoprim [Bactrim DS] 800-160 mg tablet 1 tab PO BID 7 Days Qty: 14 0RF alfuzosin 10 mg tablet extended release 24 hr 10 mg PO DAILY cetirizine 10 mg tablet 10 mg PO QAM bisacodyl [Dulcolax (bisacodyl)] 5 mg tablet,delayed release (DR/EC) 20 mg PO ONCE 1 Days Qty: 4 0RF Rx Instructions: take 4 tabs at noon the day before your colonoscopy polyethylene glycol 3350 [Miralax] 17 gram/dose powder 238 g PO ONCE Qty: 238 0RF Rx Instructions: As directed by gastroenterology department at [facility] Print Language: Ugandan
[2024-03-17 16:33] VITALS: BP 116/42; PULSE 56; TEMP 36.7; O2SAT 97
[2024-03-17] MEDS: Lidocaine HCl 2 % Urojet 10 ML JEL.PF.APP TOPICAL (16:33)
[2024-03-17 16:50] LABS: Appearance Urine Cloudy; Color Urine Yellow; Glucose Urine UA Negative (Negative); Leukocyte Esterase Urine Large (3+) (Negative); Nitrite Urine Negative (Negative); PH 5.5 (5.0-9.0); UMIC TRIGGER UACC YES; Urine Blood Trace (Negative); Urine Ketones Negative (Negative); Urine Protein Trace mg/dL (Neg-Trace)
[2024-03-17 16:55] LABS: Bacteria Urine None Seen (None Seen); Hyaline Casts Urine 0-2 /LPF (0-2); RBC Urine 0-2 /HPF (0-2); Squamous Epithelial Cell Urine 0-2 /HPF (0-2); UACC Culture Trigger YES; WBC Urine >50 /HPF (0-5)
[2024-03-17] MEDS: cefuroxime axetiL 500 MG TABLET PO (17:16)
[2024-03-17 17:25] VITALS: BP 126/60; PULSE 53; RESP 16; TEMP 36.3; O2SAT 98
--- NOTE | 2024-03-17 18:17 | PC.NURSE ---
patient provided with urinal and leg bag for rondon care. patient educated on how to emprty rondon. patient deaf, utilized pv design engineer. patient then stated they wanted a lyft ride home, patient educated that buses run free during the summer. security needed for d/c due to difficult discharge. patient ambulated off of unit with steady gait and walker.
== END 2024-03-17 18:55 | disposition home or self-care (01) ==
PROVIDERS: Emergency Provider Student in an Organized Health Care Education/Training Program
DX: R33.9 Retention of urine, unspecified (principal); N39.0 Urinary tract infection, site not specified; Z79.899 Other long term (current) drug therapy
CPT/HCPCS: 51702; 81001; 87086; 99283; 99284

== ENCOUNTER 2024-03-24 16:44 | Emergency (ER) | payer OTHER, SELFPAY ==
--- NOTE | ~2024-03-24 | XR_ITS ---
EXAMINATION: XR ABDOMEN KUB CLINICAL INDICATION: Diffuse skeletal pain, question constipation. COMPARISON: CT abdomen pelvis 02/05/2024 TECHNIQUE: AP view of the abdomen. FINDINGS: No high-grade obstruction. Moderate stool burden throughout the colon. Surgical clips in the right upper quadrant. Degenerative changes in the spine. XR/XR KUB IMPRESSION: Moderate stool burden. No high-grade obstruction.
[2024-03-24 17:06] VITALS: BP 110/80; PULSE 58; O2SAT 94
[2024-03-24 17:08] VITALS: BP 119/50; PULSE 52; RESP 16; TEMP 36.6; O2SAT 97; BMI 31.1
--- NOTE | 2024-03-24 17:28 | PC.NURSE ---
patient arrives VIA EMS with aid, patient deaf, speaks in ASL, intelligence operations specialist used to obtain information. patient states she has been having some lower abdominal pain, foul and cloudy urine for the last few days, patient denies any fevers but states it feels like there is a lot of pressure in her abdomen and is complaining of 10/10 pain when pressing. patient bladder scanned, 80mL of urine noted to be in bladder, per patient they have had their rondon chronically since June. patient endorsing pain to palpation, bs present in all four quadrants, patient denies other symptoms, denies nausea vomiting or diarrhea
--- NOTE | 2024-03-24 18:05 | ED_ITS ---
HPI - Abdominal Pain General Chief Complaint: Abdominal Pain Stated Complaint: abd pain, uti?, clogged rondon Time Seen by Provider: 03/24/24 17:39 Source: patient Mode of arrival: ambulatory Limitations: language barrier (Deaf used ASL) History of Present Illness ED Provider: lesa HAM narrative: Patient is 64-year-old deaf male to female transition with history of asthma personality disorder chronic back pain hypertension depression on Rondon catheter for last 2 months with recurrent UTI will treat with Levaquin if your oxygen last urine culture was done on 03/17 was negative comes here as having diffuse abdominal pain with odor in the urine no fever no chills has a normal bowel movement today but was constipated yesterday, no nausea no vomiting no fever no chills patient looks comfortable Related Data Home Medications ?Medication ?Instructions ?Recorded ?Confirmed famotidine 20 mg tablet 20 mg PO BID 11/10/23 ondansetron HCl 4 mg tablet 4 mg PO Q8H PRN nausea/vomiting 11/10/23 sucralfate 1 gram tablet 1 g PO QID 11/10/23 alfuzosin 10 mg tablet,extended 10 mg PO DAILY 02/23/24 release 24 hr cetirizine 10 mg tablet 10 mg PO QAM 02/23/24 Previous Rx's ?Medication ?Instructions ?Recorded polyethylene glycol 3350 17 17 g PO BID #238 grams 11/12/23 gram/dose oral powder (Miralax) benzonatate 200 mg capsule 200 mg PO TID PRN cough #20 caps 01/21/24 tramadol 50 mg tablet 50 mg PO Q6H PRN pain #20 tabs 01/21/24 bisacodyl 5 mg tablet,delayed 20 mg (4 x 5 mg) PO ONCE 1 day #4 02/23/24 release (Dulcolax (bisacodyl)) tabs polyethylene glycol 3350 17 238 g PO ONCE #238 grams 02/23/24 gram/dose oral powder (Miralax) sulfamethoxazole 800 1 tab PO BID 7 days #14 tabs 03/11/24 mg-trimethoprim 160 mg tablet (Bactrim DS) terazosin 2 mg capsule 2 mg PO BEDTIME 30 days #30 caps 03/11/24 levofloxacin 500 mg tablet 500 mg PO DAILY 7 days #7 tabs 03/15/24 cefuroxime axetil 500 mg tablet 500 mg PO BID 7 days #14 tabs 03/17/24 lorazepam 1 mg tablet (Ativan) 1 mg PO BEDTIME PRN sleep #10 tabs 03/24/24 Allergies Allergy/AdvReac Type Severity Reaction Status Date / Time No Known Allergies Allergy Verified 03/24/24 17:17 [No Known Allergies*] Review of Systems Review of Systems Yes all other systems are reviewed and are negative [facility] Past Medical History Medical History Personality disorder 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 Asthma Gender dysphoria Bradycardia Renal calculi Degenerative disc disease, lumbar Lumbar spinal stenosis Hearing impaired Hypertension Depression Surgical History H/O cervical spine surgery History of esophagogastroduodenoscopy (EGD) H/O colonoscopy Family History Family History Other No known health problems Social History Social History Household Members Other:: roommate Are you a primary primary health care nurse to a significant other at home: No Do you presently have visiting nurse or other home services: No Alcohol intake: never Comment: overflow Patient Tobacco Use Status: Never used Tobacco Smoked in Last 30 Days: No Advance Directives: No Advance Directives Information Provided: No Do you have a plan to hurt others: No Plan Current occupational status: disabled Current occupation: right handed Physical Exam ED Vital Signs: Vital Signs - 24 hr 03/24/24 17:08 03/24/24 18:41 03/24/24 20:00 Temperature 97.9 F 98.0 F 97.9 F Pulse Rate 52 54 48 L Respiratory Rate 16 14 13 Blood Pressure 119/50 L 111/64 124/64 Pulse Oximetry 97 98 96 Oxygen Delivery Method Room Air Room Air Room Air 03/24/24 23:03 Temperature 98.2 F Pulse Rate 58 Respiratory Rate 18 Blood Pressure 120/68 Pulse Oximetry 96 Oxygen Delivery Method BMI result Body Mass Index 31.1 Appearance: Alert. Oriented X3. Deaf No acute distress. Eyes: PERRLA, No Nystagmus ENT: Pharynx normal. Oral Mucosa moist Neck: Normal inspection. Neck supple. CVS: Normal heart rate and rhythm. Pulses normal. Respiratory: No respiratory distress. Equal air entry bilateral, no wheezing/rales/rhonchi Abdomen: Soft mild diffuse tenderness no guarding no rebound tenderness. Bowel sounds are present, no mass palpable, no CVA tenderness Rondon catheter in place Skin: Skin warm and dry. Normal skin color. Normal skin turgor. Extremities: No lower extremity edema. No calf tenderness Neuro: Oriented X 3. No motor deficit. Medical Decision Making Medical Decision Making [facility] Narrative: Patient is stable labs no signs of infection urine showed WBCs with RBCs without any bacteria is at this time patient does not have any UTI likely chronic colonization previous urine culture was negative on 03/17 at this time we will not give any antibiotics pending urine culture patient's plan to see urologist next week likely they will remove the Rondon catheter patient KUB showed constipation was given milk of magnesia in the ER advised to take MiraLax daily Lab Data [facility] Lab Attestation statement: I reviewed the patient's lab results. 03/24/24 18:38 03/24/24 18:38 Labs: Lab Results 03/24/24 03/24/24 Range/Units 18:38 20:07 WBC 9.0 (4.8-10.8) X10*3/uL RBC 4.50 L (4.60-5.80) X10*6/uL Hgb 13.8 L (14.0-18.0) g/dl Hct 38.9 L (42.0-52.0) % MCV 86.4 (80.0-98.0) fL MCH 30.7 (27.0-33.0) pg MCHC 35.5 (31.0-36.0) g/dl RDW 13.2 (11.0-16.0) % Plt Count 176 (160-400) X10*3/uL MPV 9.5 (9.4-12.4) fL Immature Gran % (Auto) 1.1 H (0.0-0.4) % Neut % (Auto) 65.6 (45-73) % Lymph % (Auto) 20.0 (20-40) % [place] % (Auto) 10.1 (2-11) % Eos % (Auto) 3.1 (0-4) % Baso % (Auto) 0.1 (0-2) % Lymph # (Auto) 1.8 (1.2-4.9) X10*3/uL [place] # (Auto) 0.9 (0.1-1.2) X10*3/uL Eos # (Auto) 0.3 (0.0-0.4) X10*3/uL Baso # (Auto) 0.0 (0.0-0.2) X10*3/uL Abs Immat Gran (auto) 0.10 H (0.00-0.03) X10*3/uL Absolute Neuts (auto) 5.9 (2.0-8.3) x10*3/uL Absolute Nucleated RBC 0.000 (0.0-0.012) X10*3/uL Nucleated RBC % (auto) 0.0 (0.0-0.2) /100WBC Sodium 140 (135-145) mmol/L Potassium 3.9 (3.3-5.1) mmol/L Chloride 108 (96-108) mmol/L Carbon Dioxide 25 (22-29) mmol/L Anion Gap 11 L (12-20) BUN 19 H (9-16) mg/dL Creatinine 0.93 (0.5-1.4) mg/dL Estim Creat Clear Calc 80.9 Estimated GFR > 60 Random Glucose 88 (60-115) mg/dL Calcium 8.9 D (8.4-10.2) mg/dL Total Bilirubin 0.4 (0.0-1.0) mg/dL AST 16 (5-37) U/L ALT 18 (0-40) U/L Alkaline Phosphatase 61 (39-117) U/L Total Protein 7.2 (6.5-8.0) g/dL Albumin 4.1 (3.5-5.0) g/dL Lipase 30 (8-78) U/L Urine Color Yellow Urine Appearance Clear Urine pH 5.5 (5.0-9.0) Ur Specific [place] 1.025 (1.005-1.025) Urine Protein 30 (1+) H (Neg-Trace) mg/dL Urine Glucose (UA) Negative (Negative) mg/dL Urine Ketones Trace (Negative) mg/dL Urine Blood Moderate (2+) H (Negative) Urine Nitrite Negative (Negative) Ur Leukocyte Esterase Moderate (2+) H (Negative) Urine RBC 11-20 H (0-2) /HPF Urine WBC 11-20 H (0-5) /HPF Ur Squamous Epith Cells 3-5 (0-2) /HPF Urine Bacteria None Seen (None Seen) Hyaline Casts 3-5 (0-2) /LPF Independent Interpretation I performed an independent interpretation of an: Plain X-Ray Medications Administered Discontinued Medications Generic Name Dose Route Start Last Admin Trade Name Freq PRN Reason Stop Dose Admin Lorazepam 1 mg 03/24/24 18:05 03/24/24 18:19 Lorazepam 1 Mg Tablet PO 03/24/24 18:06 1 mg ONCE ONE Administration Magnesium Hydroxide 30 ml 03/24/24 19:31 03/24/24 21:29 Milk Of Magnesia 30 Ml Oral.Susp PO 03/24/24 19:32 30 ml ONCE ONE Administration Discharge Plan Discharge Clinical Impression: Constipation, Abdominal pain Patient Disposition: Home, Self-Care Instructions: Constipation (ED), Chronic Abdominal Pain (ED) Additional Instructions: You have constipation likely the cause for abdominal pain Take your stool softener daily We will do the urine culture and if positive may need antibiotic at this time you do not need any antibiotics as last culture on 03/17 was negative for infection Prescriptions: New lorazepam [Ativan] 1 mg tablet 1 mg PO BEDTIME PRN (Reason: sleep) Qty: 10 0RF No Action sucralfate 1 gram tablet 1 g PO QID ondansetron HCl 4 mg tablet 4 mg PO Q8H PRN (Reason: nausea/vomiting) famotidine 20 mg tablet 20 mg PO BID terazosin 2 mg capsule 2 mg PO BEDTIME 30 Days Qty: 30 0RF levofloxacin 500 mg tablet 500 mg PO DAILY 7 Days Qty: 7 0RF polyethylene glycol 3350 [Miralax] 17 gram/dose powder 17 g PO BID Qty: 238 0RF benzonatate 200 mg capsule 200 mg PO TID PRN (Reason: cough) Qty: 20 0RF tramadol 50 mg tablet 50 mg PO Q6H PRN (Reason: pain) Qty: 20 0RF cefuroxime axetil 500 mg tablet 500 mg PO BID 7 Days Qty: 14 0RF sulfamethoxazole-trimethoprim [Bactrim DS] 800-160 mg tablet 1 tab PO BID 7 Days Qty: 14 0RF alfuzosin 10 mg tablet extended release 24 hr 10 mg PO DAILY cetirizine 10 mg tablet 10 mg PO QAM bisacodyl [Dulcolax (bisacodyl)] 5 mg tablet,delayed release (DR/EC) 20 mg PO ONCE 1 Days Qty: 4 0RF Rx Instructions: take 4 tabs at noon the day before your colonoscopy polyethylene glycol 3350 [Miralax] 17 gram/dose powder 238 g PO ONCE Qty: 238 0RF Rx Instructions: As directed by gastroenterology department at [facility] Interventions: ED Discharge Assessment Last Done: 03/24/24 23:03 Discharge Date/Time: 03/24/24 22:05 Print Language: Panamanian
[2024-03-24] MEDS: LORazepam 1 MG TABLET PO (18:19)
--- NOTE | 2024-03-24 18:40 | MHC.EDTECH ---
This tech changed leg bag on patients rondon at VIRGIE Nguyễn's request to collect a clean urine sample.
[2024-03-24 18:41] VITALS: BP 111/64; PULSE 54; RESP 14; TEMP 36.7; O2SAT 98
[2024-03-24 18:45] LABS: MANUAL DIFF FLAG NO
[2024-03-24 18:46] LABS: Basophils Percent Auto 0.1 % (0-2); Eosinophils Absolute Auto 0.3 X10*3/uL (0.0-0.4); Eosinophils Percent Auto 3.1 % (0-4); Hematocrit 38.9 % (42.0-52.0); Hemoglobin 13.8 g/dl (14.0-18.0); Imm Gran Pct Auto 1.1 % (0.0-0.4); Lymphocytes Absolute Auto 1.8 X10*3/uL (1.2-4.9); Mean Corpuscular HGB Conc 35.5 g/dl (31.0-36.0); Mean Corpuscular Hemoglobin 30.7 pg (27.0-33.0); Mean Corpuscular Volume 86.4 fL (80.0-98.0); Mean Platelet Volume 9.5 fL (9.4-12.4); Monocytes Absolute Auto 0.9 X10*3/uL (0.1-1.2); Monocytes Percent Auto 10.1 % (2-11); Neutrophils Absolute Auto 5.9 x10*3/uL (2.0-8.3); Neutrophils Percent Auto 65.6 % (45-73); Platelet Count 176 X10*3/uL (160-400); Red Cell Distribution Width 13.2 % (11.0-16.0)
[2024-03-24 18:59] LABS: Alanine Aminotransferase 18 U/L (0-40); Albumin Level 4.1 g/dL (3.5-5.0); Alkaline Phosphatase 61 U/L (39-117); Anion Gap 11 (12-20); Aspartate Amino Transferase 16 U/L (5-37); Bilirubin Total 0.4 mg/dL (0.0-1.0); Blood Urea Nitrogen 19 mg/dL (9-16); Calcium 8.9 mg/dL (8.4-10.2); Carbon Dioxide 25 mmol/L (22-29); Chloride 108 mmol/L (96-108); Creatinine Clr Calc Pharmacy 80.9; Estimated Glomerular Filt Rate > 60; Glucose Random 88 mg/dL (60-115); Lipase 30 U/L (8-78); Potassium 3.9 mmol/L (3.3-5.1); Sodium 140 mmol/L (135-145); Total Protein 7.2 g/dL (6.5-8.0)
[2024-03-24 20:00] VITALS: BP 124/64; PULSE 48; RESP 13; TEMP 36.6; O2SAT 96
[2024-03-24 20:14] LABS: Appearance Urine Clear; Color Urine Yellow; Glucose Urine UA Negative (Negative); Leukocyte Esterase Urine Moderate (2+) (Negative); Nitrite Urine Negative (Negative); PH 5.5 (5.0-9.0); Specific Gravity - Urine 1.025 (1.005-1.025); UMIC TRIGGER UACC YES; Urine Blood Moderate (2+) (Negative); Urine Ketones Trace mg/dL (Negative); Urine Protein 30 (1+) mg/dL (Neg-Trace)
[2024-03-24 20:16] LABS: Bacteria Urine None Seen (None Seen); UACC Culture Trigger YES
[2024-03-24] MEDS: Milk of Magnesia 30 ML ORAL.SUSP PO (21:29)
[2024-03-24 23:03] VITALS: BP 120/68; PULSE 58; RESP 18; TEMP 36.8; O2SAT 96
== END 2024-03-24 22:05 | disposition home or self-care (01) ==
PROVIDERS: Emergency Provider Internal Medicine
DX: K59.00 Constipation, unspecified (principal); R10.9 Unspecified abdominal pain; Z79.899 Other long term (current) drug therapy; Z87.440 Personal history of urinary (tract) infections
CPT/HCPCS: 36415; 74018; 80053; 81001; 83690; 85025; 87086; 99283; 99284

== ENCOUNTER 2024-04-01 10:43 | Outpatient (AMB) | payer OTHER, SELFPAY ==
--- NOTE | 2024-04-01 11:52 | A.OFFVIS_ITS ---
Intake Visit Reasons: Cath Change Allergies No Known Allergies [No Known Allergies*] Allergy (Verified 04/15/24 23:41) Medication List - Last Reconciled 04/01/24 by Jair Pro MD benzonatate 200 mg PO TID PRN bisacodyl (Dulcolax (bisacodyl)) 20 mg (4 x 5 mg) PO ONCE 1 day cefuroxime axetil 500 mg PO BID 7 days cetirizine 10 mg PO QAM famotidine 20 mg PO BID levofloxacin 500 mg PO DAILY 7 days lorazepam (Ativan) 1 mg PO BEDTIME PRN ondansetron HCl 4 mg PO Q8H PRN polyethylene glycol 3350 (Miralax) 17 grams PO BID polyethylene glycol 3350 (Miralax) 238 grams PO ONCE sucralfate 1 g PO QID sulfamethoxazole-trimethoprim 800-160 mg (Bactrim DS) 1 tab PO BID 7 days terazosin 5 mg PO BEDTIME 30 days tramadol 50 mg PO Q6H PRN HPI Comments Details: Ashley is a hearing impaired male he uses ASL for interpretation. He is seen for the following urologic conditions - lower urinary tract symptoms Here for check cystoscopy Mildly enlarged prostate Trabeculation bladder wall thickening Had some dizziness terazosin 5 mg. Will be reduced to 2 mg. Lower urinary tract symptoms Previously on 5 mg terazosin but had side effects with dizziness Prior PVR 260 cc Current PVR improved on medications Bladder wall thickening 6 mm on ultrasound Prostate volume small 25 cc PFSH Medical History Personality disorder 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 Asthma Gender dysphoria Bradycardia Renal calculi Degenerative disc disease, lumbar Lumbar spinal stenosis Hearing impaired Hypertension Depression Surgical History H/O cervical spine surgery History of esophagogastroduodenoscopy (EGD) H/O colonoscopy Family History Other No known health problems Social History Household Members Other:: roommate Are you a primary career and technology education teacher to a significant other at home: No Do you presently have visiting nurse or other home services: No Alcohol intake: never Comment: overflow Patient Tobacco Use Status: Never used Tobacco Current occupational status: disabled Current occupation: right handed Review of Systems Const Denies chills and Denies fever(s) Card Reports no additional complaints and Denies syncope Resp Denies cough GI Denies abdominal pain and Denies heartburn Reports as per HPI and Denies change in libido Neuro Denies syncope Psych Denies change in libido Endo Denies change in libido Physical Exam Const General: cooperative, healthy appearing, comfortable and no acute distress Orientation/consciousness: patient oriented x3 HEENT Face and sinus: Yes normal facial exam Mouth: moist mucous membranes Neck Neck: Yes normal visual inspection, Yes full ROM and Yes trachea midline Chest Chest palpation & inspection: normal inspection of the chest Resp Effort & Inspection: normal respiratory effort, able to speak in complete sentences and no respiratory distress GI Inspection: Yes normal to inspection Back/Spine/Pelvis Cervical Spine: normal cervical lordosis Thoracic/Lumbar Spine: thoracic and lumbar spine normal to inspection Skin General skin exam: no rashes or lesions noted Neuro General: patient oriented x3, gait normal, tone normal and moves all extremities Extrem General: Yes normal to inspection and Yes capillary refill normal Office Procedures Cystoscopy Consent Discussed risk and benefit or proposed procedure with the patient. Information consent for procedure given to the patient. Discussed technical aspects, risks, benefits and alternatives in full. Addressed all of the patient's questions and concerns regarding the procedure. The patient demonstrated knowledge and understanding. They wish to proceed with this procedure. Preparation The patient was prepped in the usual manner. A car whacker was present and in the room. Genitalia was prepped with betadine solution in a sterile manner. Lidocaine Jelly 2% was placed into the urethra and 16Fr flexible Olympus cystoscope was inserted into the meatus after adequate lubrication. Procedure Cystoscopy performed using a disposable Urovue digital 16 Nigerien cystoscope. Meatus circumcised Urethra anterior posterior urethra normal Prostatic Urethra unremarkable tight bladder neck Bladder examination with retroflexion of cystoscope Bladder Orifices normal shape and position Bladder Capacity median Trabeculations grade 1 Cellule Formation - Diverticulum Formation - Mucosal Erythema - Bladder Tumor - 52282-Sghjhnespx DISPOSABLE SCOPE URO-N NEEDLE SCOPE Procedure code (CPT) selection complete Post Void Residual Post Residual Void Post Void Residual (PVR): 14 33024-Qpif Void Residual by ultrasound Office Meds lidocaine HCl 2 % mucosal jelly in applicator Performing Provider: Jair Pro MD Performing Location: [facility] [place] [facility] Administered by: Enrico Rogel LPN on 04/01/24 11:52 Dose Route Admin Location Dispensed Lot Number Expiration Date NDC Metal Buildings Assembler 10 mL intra-urethral 20 mL nitrofurantoin monohydrate/macrocrystals 100 mg capsule Performing Provider: Jair Pro MD Performing Location: [facility] [place] [facility] Administered by: Enrico Rogel LPN on 04/01/24 11:52 Dose Route Admin Location Dispensed Lot Number Expiration Date NDC Metal Buildings Assembler 100 mg PO 1 cap naproxen 500 mg tablet Performing Provider: Jair Pro MD Performing Location: [facility] [place] [facility] Administered by: Enrico Rogel LPN on 04/01/24 11:52 Dose Route Admin Location Dispensed Lot Number Expiration Date NDC Metal Buildings Assembler 500 mg PO 1 tab Assessment & Plan Assessment & Plan (1) Incomplete bladder emptying: Code(s): R33.9 - Retention of urine, unspecified Category: Medical (2) Weak urinary stream: Code(s): R39.12 - Poor urinary stream Category: Medical (3) Bladder wall thickening: Code(s): N32.89 - Other specified disorders of bladder Category: Medical Plan Reduced terazosin to 2 mg daily Orders: Orders AMB Post Void Residual by ultrasound 04/01/24 R33.9 - Retention of urine, unspecified AMB Cystoscopy 04/01/24 N40.0 - Benign prostatic hyperplasia without lower urinary tract symptoms, N32.89 - Other specified disorders of bladder, R39.12 - Poor urinary stream, N39.0 - Urinary tract infection, site not specified, R33.9 - Retention of urine, unspecified Medications: Changed From terazosin 2 mg PO BEDTIME 30 days 30 caps 0RF To terazosin 5 mg PO BEDTIME 30 caps 1RF 30 days Patient Instructions: Imaging studies, laboratory and physical exam results were discussed and reviewed in detail. No major barriers to patient understanding were identified. An opportunity to ask questions regarding the treatment plan was provided. All questions were answered. The patient expressed understanding and agreement with the above treatment plan. The patient is aware they should contact our office by phone for worsening of their current condition or the appearance of new urologic symptoms. Compliance is encouraged with any medications and followup testing that is ordered. It is a privilege to participate in the urologic care of your patient. If you have any questions or concerns regarding treatment for the above conditions, or other urologic issues, please do not hesitate to contact me. The office telephone contact is [phone]. This note is constructed using voice recognition software. While every effort has been made to ensure accuracy automotive finance manager errors may have been included. Yours sincerely, Dr Jair Pro MD, [facility] - [facility]rology Providers of Expert, Compassionate Care for the Genitourinary System Coding Level of Care Code Est Pt Level 3 (16220) Diagnoses Incomplete bladder emptying R33.9 Weak urinary stream R39.12 Bladder wall thickening N32.89 CPT Codes Cystoscopy - CPT: 44804-Elodnomggy ([id number]) Post Residual Void - PVR CPT Code: 35914-Dkkw Void Residual by ultrasound ([id number])
--- NOTE | 2024-04-01 11:52 | A.OFFVIS_ITS ---
Intake Visit Reasons: Cath Change Intake Note: Patient is present for Cystoscopy/Voiding Trial Urology Med: Terazosin, Alfuzosin Antibiotic Allergy: None Sole Leather Cutting Machine Operator Required: Yes Sole Leather Cutting Machine Operator Language: Greek Sign Language Allergies No Known Allergies [No Known Allergies*] Allergy (Verified 04/15/24 23:41) Medication List - Last Reconciled 04/01/24 by Jair Pro MD benzonatate 200 mg PO TID PRN bisacodyl (Dulcolax (bisacodyl)) 20 mg (4 x 5 mg) PO ONCE 1 day cefuroxime axetil 500 mg PO BID 7 days cetirizine 10 mg PO QAM famotidine 20 mg PO BID levofloxacin 500 mg PO DAILY 7 days lorazepam (Ativan) 1 mg PO BEDTIME PRN ondansetron HCl 4 mg PO Q8H PRN polyethylene glycol 3350 (Miralax) 17 grams PO BID polyethylene glycol 3350 (Miralax) 238 grams PO ONCE sucralfate 1 g PO QID sulfamethoxazole-trimethoprim 800-160 mg (Bactrim DS) 1 tab PO BID 7 days terazosin 5 mg PO BEDTIME 30 days tramadol 50 mg PO Q6H PRN HPI Comments Details: Ashley is a hearing impaired male he uses ASL for interpretation. He is seen for the following urologic conditions - lower urinary tract symptoms Here for check cystoscopy Mildly enlarged prostate Trabeculation bladder wall thickening Had some dizziness terazosin 5 mg. Will be reduced to 2 mg. Lower urinary tract symptoms Previously on 5 mg terazosin but had side effects with dizziness Prior PVR 260 cc Current PVR improved on medications Bladder wall thickening 6 mm on ultrasound Prostate volume small 25 cc PFSH Medical History Personality disorder 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 Asthma Gender dysphoria Bradycardia Renal calculi Degenerative disc disease, lumbar Lumbar spinal stenosis Hearing impaired Hypertension Depression Surgical History H/O cervical spine surgery History of esophagogastroduodenoscopy (EGD) H/O colonoscopy Family History Other No known health problems Social History Household Members Other:: roommate Are you a primary healthcare specialist to a significant other at home: No Do you presently have visiting nurse or other home services: No Alcohol intake: never Comment: overflow Patient Tobacco Use Status: Never used Tobacco Current occupational status: disabled Current occupation: right handed Review of Systems Const Denies chills and Denies fever(s) Card Reports no additional complaints and Denies syncope Resp Denies cough GI Denies abdominal pain and Denies heartburn Reports as per HPI and Denies change in libido Neuro Denies syncope Psych Denies change in libido Endo Denies change in libido Physical Exam Const General: cooperative, healthy appearing, comfortable and no acute distress Orientation/consciousness: patient oriented x3 HEENT Face and sinus: Yes normal facial exam Mouth: moist mucous membranes Neck Neck: Yes normal visual inspection, Yes full ROM and Yes trachea midline Chest Chest palpation & inspection: normal inspection of the chest Resp Effort & Inspection: normal respiratory effort, able to speak in complete sentences and no respiratory distress GI Inspection: Yes normal to inspection Back/Spine/Pelvis Cervical Spine: normal cervical lordosis Thoracic/Lumbar Spine: thoracic and lumbar spine normal to inspection Skin General skin exam: no rashes or lesions noted Neuro General: patient oriented x3, gait normal, tone normal and moves all extremities Extrem General: Yes normal to inspection and Yes capillary refill normal Office Procedures Cystoscopy Consent Discussed risk and benefit or proposed procedure with the patient. Information consent for procedure given to the patient. Discussed technical aspects, risks, benefits and alternatives in full. Addressed all of the patient's questions and concerns regarding the procedure. The patient demonstrated knowledge and understanding. They wish to proceed with this procedure. Preparation The patient was prepped in the usual manner. A field mechanical meter tester was present and in the room. Genitalia was prepped with betadine solution in a sterile manner. Lidocaine Jelly 2% was placed into the urethra and 16Fr flexible Olympus cystoscope was inserted into the meatus after adequate lubrication. Procedure Cystoscopy performed using a disposable Urovue digital 16 Lao cystoscope. Meatus circumcised Urethra anterior posterior urethra normal Prostatic Urethra unremarkable tight bladder neck Bladder examination with retroflexion of cystoscope Bladder Orifices normal shape and position Bladder Capacity median Trabeculations grade 1 Cellule Formation - Diverticulum Formation - Mucosal Erythema - Bladder Tumor - 13056-Xwwgxepara DISPOSABLE SCOPE URO-N NEEDLE SCOPE Procedure code (CPT) selection complete Post Void Residual Post Residual Void Post Void Residual (PVR): 14 [id number]-Nmhv Void Residual by ultrasound Office Meds lidocaine HCl 2 % mucosal jelly in applicator Performing Provider: Jair rPo MD Performing Location: [facility] [place] [facility] Administered by: Enrico Rogel LPN on 04/01/24 11:52 Dose Route Admin Location Dispensed Lot Number Expiration Date ND Information Assurance Manager 10 mL intra-urethral 20 mL nitrofurantoin monohydrate/macrocrystals 100 mg capsule Performing Provider: Jair Pro MD Performing Location: [facility] [place] [facility] Administered by: Enrico Rogel LPN on 04/01/24 11:52 Dose Route Admin Location Dispensed Lot Number Expiration Date NDC Information Assurance Manager 100 mg PO 1 cap naproxen 500 mg tablet Performing Provider: Jair Pro MD Performing Location: [facility] [place] [facility] Administered by: Enrico Rogel LPN on 04/01/24 11:52 Dose Route Admin Location Dispensed Lot Number Expiration Date ND Information Assurance Manager 500 mg PO 1 tab Assessment & Plan Assessment & Plan (1) Incomplete bladder emptying: Code(s): R33.9 - Retention of urine, unspecified Category: Medical (2) Weak urinary stream: Code(s): R39.12 - Poor urinary stream Category: Medical Plan Start terazosin Orders: Orders AMB Post Void Residual by ultrasound 04/01/24 R33.9 - Retention of urine, unspecified AMB Cystoscopy 04/01/24 N40.0 - Benign prostatic hyperplasia without lower urinary tract symptoms, N32.89 - Other specified disorders of bladder, R39.12 - Poor urinary stream, N39.0 - Urinary tract infection, site not specified, R33.9 - Retention of urine, unspecified Medications: Changed From terazosin 2 mg PO BEDTIME 30 days 30 caps 0RF To terazosin 5 mg PO BEDTIME 30 caps 1RF 30 days Patient Instructions: Imaging studies, laboratory and physical exam results were discussed and reviewed in detail. No major barriers to patient understanding were identified. An opportunity to ask questions regarding the treatment plan was provided. All questions were answered. The patient expressed understanding and agreement with the above treatment plan. The patient is aware they should contact our office by phone for worsening of th eir current condition or the appearance of new urologic symptoms. Compliance is encouraged with any medications and followup testing that is ordered. It is a privilege to participate in the urologic care of your patient. If you have any questions or concerns regarding treatment for the above conditions, or other urologic issues, please do not hesitate to contact me. The office telephone contact is [phone]. This note is constructed using voice recognition software. While every effort has been made to ensure accuracy ship's surveyor errors may have been included. Yours sincerely, Dr Jair Pro MD, [facility] - Urology Providers of Expert, Compassionate Care for the Genitourinary System Coding Level of Care Code Est Pt Level 3 (11221) Diagnoses Incomplete bladder emptying R33.9 Weak urinary stream R39.12 CPT Codes Cystoscopy - CPT: 52776-Wnbeluyeow ([id number]) Post Residual Void - PVR CPT Code: 06943-Juce Void Residual by ultrasound ([id number])
== END 2024-04-01 12:26 | disposition home or self-care (01) ==
LOC: HO.HUSH 10:43
PROVIDERS: Visit Provider Urology
DX: N40.0 Benign prostatic hyperplasia without lower urinary tract symptoms (principal); N32.89 Other specified disorders of bladder; R39.12 Poor urinary stream; N39.0 Urinary tract infection, site not specified; R33.9 Retention of urine, unspecified
CPT/HCPCS: 52000; 99213

== ENCOUNTER → 2024-04-01 10:43 | Outpatient (BNVA) | payer MEDICARE, SELFPAY | PROVIDERS: Visit Provider Urology | DX: N32.89 Other specified disorders of bladder (principal); N39.0 Urinary tract infection, site not specified; N40.0 Benign prostatic hyperplasia without lower urinary tract symptoms; R33.9 Retention of urine, unspecified; R39.12 Poor urinary stream | CPT/HCPCS: 52000; 51798; 99212 ==

== ENCOUNTER 2024-04-02 19:08 | Emergency (ER) | payer OTHER, SELFPAY ==
--- NOTE | ~2024-04-02 | CT_ITS ---
EXAMINATION: CT ABDOMEN AND PELVIS WITH CONTRAST CLINICAL INFORMATION: Lower abdominal pain, bloating, nausea and brown urine. COMPARISON: [facility] dated 03/24/2024; renal ultrasound dated 01/29/2024; CT abdomen and pelvis dated 02/05/2024. TECHNIQUE: Multidetector volumetric images were obtained from the superior aspect of the liver through the pubic symphysis following administration 85 mL of Omnipaque 350 intravenous contrast. Sagittal and coronal reformatted images were obtained on the technologist's workstation. Oral contrast: No This CT examination was performed using dose optimization techniques as appropriate, variously including the following: *Automated exposure control *Adjustment of mA and/or kV according to patient size (this includes techniques or standardized protocols for targeted exams where dose is matched to indication/reason for exam; i.e. extremities or head) *Use of iterative reconstruction technique Imaging is somewhat limited by motion artifact. DLP: 692 mGy-cm FINDINGS: LUNG BASES: There is mild linear scar/subsegmental atelectasis at the posterior right base. There is marked asymmetric left gynecomastia. LIVER, GALLBLADDER, AND BILIARY TREE: The liver is normal in size, shape, and attenuation. No focal hepatic lesion or biliary ductal dilatation is present. The gallbladder is surgically absent. PANCREAS: Unremarkable. SPLEEN: Unremarkable. ADRENAL GLANDS: Unremarkable. KIDNEYS AND URETERS: The kidneys are normal in size, shape, and attenuation. No hydronephrosis, hydroureter, or calculi seen. No perinephric stranding. BLADDER: Unremarkable. GASTROINTESTINAL TRACT: There is a moderate stool burden. No obstruction, free intraperitoneal air or abscess is seen. There is no focal bowel wall thickening. The vermiform appendix appears normal. No significant diverticulosis or diverticulitis is seen. ABDOMINAL WALL: There is a tiny fat-containing umbilical hernia. There are small to moderate fat-containing bilateral inguinal hernias. LYMPH NODES: Normal. VASCULAR: There is mild aortoiliac atherosclerotic calcification. No abdominal aortic aneurysm or dissection is seen. PELVIC VISCERA: The prostate and seminal vesicles are unremarkable. OSSEOUS STRUCTURES: There is multi-level marked lower thoracic and lumbar spondylosis. No acute or aggressive osseous finding is noted. CT/CT abdomen pelvis w IV con IMPRESSION: 1. There is a moderate stool burden, without barbara bowel obstruction. 2. There is a tiny fat-containing umbilical hernia, and small to moderate fat-containing bilateral inguinal hernias are seen. 3. The gallbladder is surgically absent. 4. There is multi-level marked lower thoracic and lumbar spondylosis. 5. There is marked asymmetric left gynecomastia. Fleischner guidelines were followed. Electronically signed by: Tyrell Duff MD 04/02/2024 11:15 PM EDT
[2024-04-02 19:17] VITALS: BP 152/80; PULSE 80
[2024-04-02 19:19] VITALS: BP 128/57; PULSE 62; RESP 18; TEMP 37; O2SAT 99
--- NOTE | 2024-04-02 19:27 | ED_ITS ---
HPI - General Adult General Chief complaint: Urogenital-Male Stated complaint: dizziness, brown urine Time Seen by Provider: 04/02/24 19:25 Source: patient Mode of arrival: ambulatory Limitations: language barrier (ASL, alumni relations coordinator utilized) History of Present Illness HPI narrative: Patient is a 64-year-old who presents to the emergency department for evaluation. needle control cheniller utilized. Patient reports having Henry catheter removed yesterday morning with urology; Dr. Pro, was able to have normal urinary output without complication. States that today, ?it hit me? reports sudden onset of diffuse lower abdominal pain that radiates to the back, abdominal bloating, intermittent dizziness, cramping to the bilateral legs, noted urine to be brown in color as of today, and nausea but no associated vomiting. Reports that he newly began taking terazosin as of yesterday. Denies hematuria, denies hematochezia, melena, constipation, diarrhea, Related Data Home Medications ?Medication ?Instructions ?Recorded ?Confirmed famotidine 20 mg tablet 20 mg PO BID 11/10/23 04/01/24 ondansetron HCl 4 mg tablet 4 mg PO Q8H PRN nausea/vomiting 11/10/23 04/01/24 sucralfate 1 gram tablet 1 g PO QID 11/10/23 04/01/24 cetirizine 10 mg tablet 10 mg PO QAM 02/23/24 04/01/24 Previous Rx's ?Medication ?Instructions ?Recorded polyethylene glycol 3350 17 17 g PO BID #238 grams 11/12/23 gram/dose oral powder (Miralax) benzonatate 200 mg capsule 200 mg PO TID PRN cough #20 caps 01/21/24 tramadol 50 mg tablet 50 mg PO Q6H PRN pain #20 tabs 01/21/24 bisacodyl 5 mg tablet,delayed 20 mg (4 x 5 mg) PO ONCE 1 day #4 02/23/24 release (Dulcolax (bisacodyl)) tabs polyethylene glycol 3350 17 238 g PO ONCE #238 grams 02/23/24 gram/dose oral powder (Miralax) sulfamethoxazole 800 1 tab PO BID 7 days #14 tabs 03/11/24 mg-trimethoprim 160 mg tablet (Bactrim DS) levofloxacin 500 mg tablet 500 mg PO DAILY 7 days #7 tabs 03/15/24 cefuroxime axetil 500 mg tablet 500 mg PO BID 7 days #14 tabs 03/17/24 lorazepam 1 mg tablet (Ativan) 1 mg PO BEDTIME PRN sleep #10 tabs 03/24/24 terazosin 5 mg capsule 5 mg PO BEDTIME 30 days #30 caps 04/01/24 cefuroxime axetil 500 mg tablet 500 mg PO BID #14 tabs 04/03/24 Allergies Allergy/AdvReac Type Severity Reaction Status Date / Time No Known Allergies Allergy Verified 04/02/24 19:41 [No Known Allergies*] Review of Systems 2 Review of Systems: Yes all other systems are reviewed and are negative [facility] Past Medical History Attestation statement: The following information was validated with the patient. Source: old records reviewed Medical History Personality disorder 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 Asthma Gender dysphoria Bradycardia Renal calculi Degenerative disc disease, lumbar Lumbar spinal stenosis Hearing impaired Hypertension Depression Surgical History H/O cervical spine surgery History of esophagogastroduodenoscopy (EGD) H/O colonoscopy Family History Family History Other No known health problems Social History Social History Household Members Other:: roommate Are you a primary acute care occupational therapist to a significant other at home: No Do you presently have visiting nurse or other home services: No Alcohol intake: never Comment: overflow Patient Tobacco Use Status: Never used Tobacco Smoked in Last 30 Days: No Use of substances other than those prescribed or required for medical reasons: No Advance Directives: No Advance Directives Information Provided: No Current occupational status: disabled Current occupation: right handed Physical Exam ED Vital Signs: Vital Signs - 24 hr 04/02/24 19:19 04/02/24 22:03 04/03/24 01:10 Temperature 98.6 F 97.7 F 97.7 F Pulse Rate 62 63 56 Respiratory Rate 18 18 18 Blood Pressure 128/57 L 129/49 L 138/68 Pulse Oximetry 99 98 96 Oxygen Delivery Method Room Air Room Air Room Air BMI result Body Mass Index 37.5 Appearance: Alert.?Oriented to person, place and time. No acute distress.?Normal affect. Eyes: Pupils equal, round and reactive to light.? ENT: Pharynx normal.?? Neck: Normal inspection.? Neck supple.?? CVS: Heart sounds normal. Normal heart rate and rhythm.? Pulses normal.?? Respiratory: No respiratory distress.? Lung sounds clear to auscultation bilaterally?? Abdomen: Soft rounded without rigidity or guarding. Diffuse lower abdominal tenderness upon palpation.. Normoactive bowel sounds. No pulsatile mass.? Back: Bilateral lumbar paraspinal tenderness upon palpation, no midline tenderness step-offs or deformities. Skin: Skin warm and dry.? Normal skin color.? Normal skin turgor.?? Extremities: No lower extremity edema.? No calf ttp? Neuro: Moves all extremities spontaneously. Sensation intact bilaterally. CN II- XII intact. No focal neuro deficits. Ambulates with normal steady gait. Course Reevaluation(s) Reevaluation #1: Urine is distinctly brown in color, no obvious hematuria, urinalysis indicating Nitriturea may be secondary to infection though no urine bacteria is seen versus false positive due to dietary intake and/or prolonged time before sent to lab, WBCs and microscopic hematuria consistent with as seen in the past. Initially covered with 1 dose of Rocephin, given recent urinary catheter, presentation of urine today, I reviewed this urinalysis with my attending Dr. Saucedo who agrees with plan of care for treatment as acute urinary infection. CK within normal range, no CHELO, does not appear consistent with rhabdomyolysis. Urinalysis without leukocytosis, mild normocytic anemia that does not meet transfusion criteria, no thrombocytopenia. Coags within normal range. No significant electrolyte derangement. LFTs within normal range. High sensitive troponin within normal range, EKG revealing mild sinus bradycardia with rate of 55, QTC 399, no ST elevation, no ST depression, no acute ischemic abnormalities, do not suspect ACS as cause of pain. CT of the abdomen and pelvis revealing stool burden without barbara bowel obstruction, patient admits to chronic constipation, has not been compliant with stool softeners or laxatives, fat containing umbilical hernia and bilateral inguinal hernias without evidence of obstruction or incarceration. Medications Administered Discontinued Medications Generic Name Dose Route Start Last Admin Trade Name Freq PRN Reason Stop Dose Admin Sodium Chloride 1,000 mls @ 999 mls/hr 04/02/24 20:00 04/02/24 22:44 Ns IV 04/02/24 21:00 Infused .Q1H1M DAVID Infusion Ceftriaxone Sodium 1 gm/ 50 mls @ 100 mls/hr 04/02/24 21:19 04/02/24 22:44 Sodium Chloride IV 04/02/24 21:48 Infused ONCE ONE Infusion Iohexol 100 ml 04/02/24 21:09 04/02/24 21:09 Iohexol 350 Mg/Ml 100 Ml Infus..Btl IV 04/02/24 21:10 85 ml ONCE ONE Administration Morphine Sulfate 2 mg 04/02/24 21:27 04/02/24 21:47 Morphine Sulfate 2 Mg/Ml Cartridge IVPUSH 04/02/24 21:28 2 mg ONCE ONE Administration Protocol Medical Decision Making Medical Decision Making MDM Narrative: This is a 64-year-old hearing impaired patient who uses ASL for interpretation past medical history of NSTEMI, urinary retention with recent removal of Henry catheter, recurrent UTI presents to the emergency department for evaluation of abdominal pain, muscle cramping to the bilateral legs, and brown urine which was noted during the time of my evaluation. Urinalysis to be obtained bladder scan revealing PVR 183. Will obtain CBC, CMP, CPK Differential Diagnosis Differential Diagnoses: The differential diagnosis associated with the presentation includes (Urinary tract infection, pyelonephritis, ureteral calculi, hydronephrosis, rhabdomyolysis) Admission/Observation Consideration of admission/observation: Escalation of care including admission/observation considered Lab Data [facility] Lab Attestation statement: I reviewed the patient's lab results. (See course narrative) 04/02/24 20:29 04/02/24 20:29 Labs: Lab Results 04/02/24 Range/Units 20:29 WBC 8.1 (4.8-10.8) X10*3/uL RBC 4.57 L (4.60-5.80) X10*6/uL Hgb 13.9 L (14.0-18.0) g/dl Hct 39.9 L (42.0-52.0) % MCV 87.3 (80.0-98.0) fL MCH 30.4 (27.0-33.0) pg MCHC 34.8 (31.0-36.0) g/dl RDW 12.9 (11.0-16.0) % Plt Count 185 (160-400) X10*3/uL MPV 10.2 (9.4-12.4) fL Immature Gran % (Auto) 1.0 H (0.0-0.4) % Neut % (Auto) 66.9 (45-73) % Lymph % (Auto) 18.4 L (20-40) % [place] % (Auto) 10.9 (2-11) % Eos % (Auto) 2.7 (0-4) % Baso % (Auto) 0.1 (0-2) % Lymph # (Auto) 1.5 (1.2-4.9) X10*3/uL [place] # (Auto) 0.9 (0.1-1.2) X10*3/uL Eos # (Auto) 0.2 (0.0-0.4) X10*3/uL Baso # (Auto) 0.0 (0.0-0.2) X10*3/uL Abs Immat Gran (auto) 0.08 H (0.00-0.03) X10*3/uL Absolute Neuts (auto) 5.4 (2.0-8.3) x10*3/uL Absolute Nucleated RBC 0.000 (0.0-0.012) X10*3/uL Nucleated RBC % (auto) 0.0 (0.0-0.2) /100WBC PT 12.7 (11.1-13.3) SEC INR 1.0 (0.9-1.1) Sodium 138 (135-145) mmol/L Potassium 4.4 (3.3-5.1) mmol/L Chloride 110 H (96-108) mmol/L Carbon Dioxide 22 (22-29) mmol/L Anion Gap 10 L (12-20) BUN 31 H (9-16) mg/dL Creatinine 0.92 (0.5-1.4) mg/dL Estim Creat Clear Calc 72.4 Estimated GFR > 60 Random Glucose 103 (60-115) mg/dL Calcium 9.5 D (8.4-10.2) mg/dL Magnesium 2.0 (1.6-2.6) mg/dL Total Bilirubin 0.4 (0.0-1.0) mg/dL AST 14 (5-37) U/L ALT 15 (0-40) U/L Alkaline Phosphatase 70 (39-117) U/L Total Creatine Kinase 84 (38-174) U/L Troponin I High Sens 5.7 D (<3.5-35.0) ng/L Total Protein 7.0 (6.5-8.0) g/dL Albumin 4.1 (3.5-5.0) g/dL Lipase 45 (8-78) U/L Urine Color BROWN Urine Appearance Turbid Urine pH 6.5 (5.0-9.0) Ur Specific [place] >= 1.030 H (1.005-1.025) Urine Protein 100 (2+) H (Neg-Trace) mg/dL Urine Glucose (UA) Negative (Negative) mg/dL Urine Ketones Trace (Negative) mg/dL Urine Blood Large (3+) H (Negative) Urine Nitrite Positive H (Negative) Ur Leukocyte Esterase Trace H (Negative) Urine RBC >20 H (0-2) /HPF Urine WBC 21-50 H (0-5) /HPF Ur Squamous Epith Cells >20 (0-2) /HPF Urine Bacteria None Seen (None Seen) Hyaline Casts 0-2 (0-2) /LPF Granular Casts Present Urine Opiates Screen Not Detected (Not Detect) Ur Buprenorphine Scrn Not Detected (Not Detect) ng/mL Ur Oxycodone Screen Not Detected (Not Detect) ng/mL Urine Methadone Screen Not Detected (Not Detect) ng/mL Urine Fentanyl Screen Not Detected (Not Detect) Ur Barbiturates Screen Not Detected (Not Detect) Ur Phencyclidine Scrn Not Detected (Not Detect) Ur Amphetamines Screen Not Detected (Not Detect) U Benzodiazepines Scrn Not Detected (Not Detect) Urine Cocaine Screen Not Detected (Not Detect) U Marijuana (THC) Screen Not Detected (Not Detect) Ethyl Alcohol < 10 mg/dL Radiology Impression Discussion of test interpretation with radiology: I have reviewed the radiologist's reading. Radiologist Impression: CT/CT abdomen pelvis w IV con IMPRESSION: 1. There is a moderate stool burden, without barbara bowel obstruction. 2. There is a tiny fat-containing umbilical hernia, and small to moderate fat-containing bilateral inguinal hernias are seen. 3. The gallbladder is surgically absent. 4. There is multi-level marked lower thoracic and lumbar spondylosis. 5. There is marked asymmetric left gynecomastia. Fleischner guidelines were followed. Independent Historian Clinical information obtained from an independent historian. History obtained from or confirmed by: EMS External Record Review External record reviewed: Outpatient record Prescription Management I considered prescription management with: Antibiotic Discharge Plan Discharge Clinical Impression: Urinary tract infection Patient Disposition: Home, Self-Care Instructions: Urinary Tract Infection in Older Adults (ED) Additional Instructions: Please complete the entire course of antibiotics as prescribed for management of urinary tract infection. Follow-up with your primary care doctor/urology. You may return back to emergency department any new or worsening symptoms or concerns. Prescriptions: New cefuroxime axetil 500 mg tablet 500 mg PO BID Qty: 14 0RF No Action sucralfate 1 gram tablet 1 g PO QID ondansetron HCl 4 mg tablet 4 mg PO Q8H PRN (Reason: nausea/vomiting) famotidine 20 mg tablet 20 mg PO BID levofloxacin 500 mg tablet 500 mg PO DAILY 7 Days Qty: 7 0RF polyethylene glycol 3350 [Miralax] 17 gram/dose powder 17 g PO BID Qty: 238 0RF benzonatate 200 mg capsule 200 mg PO TID PRN (Reason: cough) Qty: 20 0RF tramadol 50 mg tablet 50 mg PO Q6H PRN (Reason: pain) Qty: 20 0RF cefuroxime axetil 500 mg tablet 500 mg PO BID 7 Days Qty: 14 0RF lorazepam [Ativan] 1 mg tablet 1 mg PO BEDTIME PRN (Reason: sleep) Qty: 10 0RF sulfamethoxazole-trimethoprim [Bactrim DS] 800-160 mg tablet 1 tab PO BID 7 Days Qty: 14 0RF cetirizine 10 mg tablet 10 mg PO QAM bisacodyl [Dulcolax (bisacodyl)] 5 mg tablet,delayed release (DR/EC) 20 mg PO ONCE 1 Days Qty: 4 0RF Rx Instructions: take 4 tabs at noon the day before your colonoscopy polyethylene glycol 3350 [Miralax] 17 gram/dose powder 238 g PO ONCE Qty: 238 0RF Rx Instructions: As directed by gastroenterology department at [facility] terazosin 5 mg capsule 5 mg PO BEDTIME 30 Days Qty: 30 1RF Referrals: Physician,Unknown J [Primary Care Provider] - Interventions: ED Discharge Assessment Last Done: 04/03/24 01:32 Print Language: Prydeinig
[2024-04-02 19:34] VITALS: BMI 37.5
--- NOTE | 2024-04-02 19:48 | ECG_ITS ---
Test Reason : ABD PAIN Blood Pressure : / mmHG Vent. Rate : 055 BPM Atrial Rate : 055 BPM P-R Int : 194 ms QRS Dur : 094 ms QT Int : 418 ms P-R-T Axes : 059 049 023 degrees QTc Int : 399 ms Sinus bradycardia Nonspecific T wave abnormality Abnormal ECG When compared with ECG of 05-FEB-2024 19:15, No significant change was found Referred By: Mae Deng Electronically Signed By:DIMPLE SMART
[2024-04-02 20:35] LABS: MANUAL DIFF FLAG NO
[2024-04-02 20:36] LABS: Basophils Percent Auto 0.1 % (0-2); Eosinophils Absolute Auto 0.2 X10*3/uL (0.0-0.4); Eosinophils Percent Auto 2.7 % (0-4); Hematocrit 39.9 % (42.0-52.0); Hemoglobin 13.9 g/dl (14.0-18.0); Imm Gran Abs Auto 0.08 X10*3/uL (0.00-0.03); Lymphocytes Absolute Auto 1.5 X10*3/uL (1.2-4.9); Lymphocytes Percent Auto 18.4 % (20-40); Mean Corpuscular HGB Conc 34.8 g/dl (31.0-36.0); Mean Corpuscular Hemoglobin 30.4 pg (27.0-33.0); Mean Corpuscular Volume 87.3 fL (80.0-98.0); Mean Platelet Volume 10.2 fL (9.4-12.4); Monocytes Absolute Auto 0.9 X10*3/uL (0.1-1.2); Monocytes Percent Auto 10.9 % (2-11); Neutrophils Absolute Auto 5.4 x10*3/uL (2.0-8.3); Neutrophils Percent Auto 66.9 % (45-73); Platelet Count 185 X10*3/uL (160-400); Red Blood Count 4.57 X10*6/uL (4.60-5.80); Red Cell Distribution Width 12.9 % (11.0-16.0); White Blood Count 8.1 X10*3/uL (4.8-10.8)
[2024-04-02 20:37] LABS: Appearance Urine Turbid; Color Urine BROWN; Glucose Urine UA Negative (Negative); Leukocyte Esterase Urine Trace (Negative); Nitrite Urine Positive (Negative); PH 6.5 (5.0-9.0); Specific Gravity - Urine >= 1.030 (1.005-1.025); UMIC TRIGGER UACC YES; Urine Blood Large (3+) (Negative); Urine Ketones Trace mg/dL (Negative); Urine Protein 100 (2+) mg/dL (Neg-Trace)
[2024-04-02 20:42] LABS: Prothrombin Time 12.7 SEC (11.1-13.3)
[2024-04-02 20:51] LABS: Alanine Aminotransferase 15 U/L (0-40); Albumin Level 4.1 g/dL (3.5-5.0); Alkaline Phosphatase 70 U/L (39-117); Anion Gap 10 (12-20); Aspartate Amino Transferase 14 U/L (5-37); Bacteria Urine None Seen (None Seen); Bilirubin Total 0.4 mg/dL (0.0-1.0); Blood Urea Nitrogen 31 mg/dL (9-16); Calcium 9.5 mg/dL (8.4-10.2); Carbon Dioxide 22 mmol/L (22-29); Chloride 110 mmol/L (96-108); Creatinine Clr Calc Pharmacy 72.4; Estimated Glomerular Filt Rate > 60; Ethanol < 10 mg/dL; Glucose Random 103 mg/dL (60-115); Granular Casts Urine Present; Hyaline Casts Urine 0-2 /LPF (0-2); Lipase 45 U/L (8-78); Potassium 4.4 mmol/L (3.3-5.1); RBC Urine >20 /HPF (0-2); Sodium 138 mmol/L (135-145); Squamous Epithelial Cell Urine >20 /HPF (0-2); UACC Culture Trigger YES; WBC Urine 21-50 /HPF (0-5)
[2024-04-02 20:54] LABS: Amphetamine Screen Urine Not Detected (Not Detect); Barbiturates, Urine Not Detected (Not Detect); Benzodiazepines Screen Urine Not Detected (Not Detect); Buprenorphine Scr Not Detected (Not Detect); Cannabinoid Screen Urine Not Detected (Not Detect); Cocaine Screen Urine Not Detected (Not Detect); Fentanyl, urine Not Detected (Not Detect); Methadone Screen, Urine Not Detected (Not Detect); Opiate Screen Urine Not Detected (Not Detect); Oxycodone Screen Urine Not Detected (Not Detect); Phencyclidine Screen Urine Not Detected (Not Detect)
[2024-04-02 20:59] LABS: Troponin-I High Sensitivity 5.7 ng/L (<3.5-35.0)
[2024-04-02] MEDS: iohexoL 350 MG/ML 100 ML INFUS..BTL IV (21:09)
[2024-04-02] MEDS: 0.9 % Sodium Chloride 1,000 ML 999 ML IV (21:29)
[2024-04-02] MEDS: cefTRIAXone sodium 1 GM in 0.9 % Sodium Chloride 50 ML IV (21:47)
[2024-04-02] MEDS: Morphine Sulfate 2 MG/ML CARTRIDGE IVPUSH (21:47)
[2024-04-02 22:03] VITALS: BP 129/49; PULSE 63; RESP 18; TEMP 36.5; O2SAT 98
[2024-04-03 01:10] VITALS: BP 138/68; PULSE 56; RESP 18; TEMP 36.5; O2SAT 96
[2024-04-03 01:32] VITALS: BP 138/68; PULSE 56; RESP 18; TEMP 36.5; O2SAT 96
== END 2024-04-03 04:04 | disposition home or self-care (01) ==
PROVIDERS: Nurse Practitioner Family; Emergency Provider Emergency Medicine Emergency Medical Services
DX: N39.0 Urinary tract infection, site not specified (principal); Z79.899 Other long term (current) drug therapy
CPT/HCPCS: 36415; 51798; 74177; 80053; 80307; 81001; 82550; 83690; 83735; 84484; 85025; 85610; 87086; 93005; 96361; 96365; 96375; 99284; 99285; J0696; J2270; Q9967

== ENCOUNTER 2024-04-15 23:25 | Emergency (ER) | payer OTHER, SELFPAY ==
[2024-04-15 23:36] VITALS: BP 130/94; PULSE 88; O2SAT 98
[2024-04-15 23:39] VITALS: BMI 28.1
[2024-04-16 00:02] VITALS: BP 145/79; PULSE 62; RESP 20; TEMP 37.2; O2SAT 94
[2024-04-16 03:00] LABS: MANUAL DIFF FLAG NO
[2024-04-16 03:01] LABS: Eosinophils Absolute Auto 0.2 X10*3/uL (0.0-0.4); Eosinophils Percent Auto 2.9 % (0-4); Hematocrit 38.9 % (42.0-52.0); Hemoglobin 13.5 g/dl (14.0-18.0); Imm Gran Abs Auto 0.07 X10*3/uL (0.00-0.03); Imm Gran Pct Auto 0.9 % (0.0-0.4); Lymphocytes Absolute Auto 0.9 X10*3/uL (1.2-4.9); Lymphocytes Percent Auto 10.8 % (20-40); Mean Corpuscular HGB Conc 34.7 g/dl (31.0-36.0); Mean Corpuscular Hemoglobin 30.8 pg (27.0-33.0); Mean Corpuscular Volume 88.6 fL (80.0-98.0); Mean Platelet Volume 9.5 fL (9.4-12.4); Monocytes Absolute Auto 0.6 X10*3/uL (0.1-1.2); Monocytes Percent Auto 7.6 % (2-11); Neutrophils Absolute Auto 6.4 x10*3/uL (2.0-8.3); Neutrophils Percent Auto 77.8 % (45-73); Platelet Count 150 X10*3/uL (160-400); Red Blood Count 4.39 X10*6/uL (4.60-5.80); Red Cell Distribution Width 12.8 % (11.0-16.0); White Blood Count 8.2 X10*3/uL (4.8-10.8)
[2024-04-16 03:04] LABS: IDNOW Serial# 08D9AD1C; Strep A Nucleic Acid Negative (Negative)
[2024-04-16 03:21] LABS: Alanine Aminotransferase 21 U/L (0-40); Albumin Level 3.9 g/dL (3.5-5.0); Alkaline Phosphatase 55 U/L (39-117); Anion Gap 13 (12-20); Aspartate Amino Transferase 18 U/L (5-37); Bilirubin Total 0.6 mg/dL (0.0-1.0); Blood Urea Nitrogen 21 mg/dL (9-16); Calcium 9.3 mg/dL (8.4-10.2); Carbon Dioxide 23 mmol/L (22-29); Chloride 110 mmol/L (96-108); Creatinine Clr Calc Pharmacy 76.6; Estimated Glomerular Filt Rate > 60; Glucose Random 108 mg/dL (60-115); Potassium 4.1 mmol/L (3.3-5.1); Sodium 142 mmol/L (135-145); Total Protein 6.7 g/dL (6.5-8.0)
[2024-04-16 03:32] LABS: Influenza A PCR NEGATIVE (Negative); Influenza B PCR NEGATIVE (Negative); Resp Syncy Virus RNA Qual PCR NEGATIVE (Negative); SARS COV2 PCR INHOUSE POSITIVE (Negative)
[2024-04-16 04:00] VITALS: BP 153/70; PULSE 74; RESP 16; TEMP 36.6; O2SAT 95
--- NOTE | 2024-04-16 05:23 | ED.GENADULT ---
HPI - General Adult General Chief complaint: General Medical Stated complaint: cough and vomiting Time Seen by Provider: 04/16/24 05:23 History of Present Illness ED Provider: Stephanie HAM narrative: The patient is a 64-year-old male. He is deaf. He is here with a family member who is also deaf. I interviewed them using an ASL turbine technician via tablet. The patinet has felt unwell for about 2 days with a cough and sore throat. He felt feverish earlier today. He took some acetaminophen. He has had some nausea and vomiting. Additionally he recently got an injection in his left arm. After the injection he went home and slept on his right shoulder. When he woke up he had pain in his right shoulder that has been bothering him ever since. Patient was unable to tell me what the injection was for. Patient says that he has had at least 1 COVID vaccination in the past. Related Data Home Medications ?Medication ?Instructions ?Recorded ?Confirmed famotidine 20 mg tablet 20 mg PO BID 11/10/23 04/01/24 ondansetron HCl 4 mg tablet 4 mg PO Q8H PRN nausea/vomiting 11/10/23 04/01/24 sucralfate 1 gram tablet 1 g PO QID 11/10/23 04/01/24 cetirizine 10 mg tablet 10 mg PO QAM 02/23/24 04/01/24 Previous Rx's ?Medication ?Instructions ?Recorded polyethylene glycol 3350 17 17 g PO BID #238 grams 11/12/23 gram/dose oral powder (Miralax) benzonatate 200 mg capsule 200 mg PO TID PRN cough #20 caps 01/21/24 tramadol 50 mg tablet 50 mg PO Q6H PRN pain #20 tabs 01/21/24 bisacodyl 5 mg tablet,delayed 20 mg (4 x 5 mg) PO ONCE 1 day #4 02/23/24 release (Dulcolax (bisacodyl)) tabs polyethylene glycol 3350 17 238 g PO ONCE #238 grams 02/23/24 gram/dose oral powder (Miralax) sulfamethoxazole 800 1 tab PO BID 7 days #14 tabs 03/11/24 mg-trimethoprim 160 mg tablet (Bactrim DS) levofloxacin 500 mg tablet 500 mg PO DAILY 7 days #7 tabs 03/15/24 cefuroxime axetil 500 mg tablet 500 mg PO BID 7 days #14 tabs 03/17/24 lorazepam 1 mg tablet (Ativan) 1 mg PO BEDTIME PRN sleep #10 tabs 03/24/24 terazosin 5 mg capsule 5 mg PO BEDTIME 30 days #30 caps 04/01/24 cefuroxime axetil 500 mg tablet 500 mg PO BID #14 tabs 04/03/24 ibuprofen 400 mg tablet 400 mg PO Q6H PRN pain #14 tabs 04/16/24 nirmatrelvir 300 mg (150 mg See Rx Instructions PO .COMPLEX 04/16/24 x2)-ritonavir 100 mg tablet,dose #30 ea pack (Paxlovid) Allergies Allergy/AdvReac Type Severity Reaction Status Date / Time No Known Allergies Allergy Verified 04/15/24 23:41 [No Known Allergies*] Review of Systems Review of Systems: Yes all other systems are reviewed and are negative [facility] Past Medical History Medical History Personality disorder 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 Asthma Gender dysphoria Bradycardia Renal calculi Degenerative disc disease, lumbar Lumbar spinal stenosis Hearing impaired Hypertension Depression Surgical History H/O cervical spine surgery History of esophagogastroduodenoscopy (EGD) H/O colonoscopy Family History Family History Other No known health problems Social History Social History Household Members Other:: roommate Are you a primary acute care certified nursing assistant to a significant other at home: No Do you presently have visiting nurse or other home services: No Alcohol intake: never Comment: overflow Patient Tobacco Use Status: Never used Tobacco Smoked in Last 30 Days: No Use of substances other than those prescribed or required for medical reasons: No Advance Directives: No Advance Directives Information Provided: No Current occupational status: disabled Current occupation: right handed Physical Exam ED Vital Signs: Vital Signs - 24 hr 04/16/24 00:02 04/16/24 04:00 Temperature 99.0 F 97.9 F Pulse Rate 62 74 Respiratory Rate 20 16 Blood Pressure 145/79 H 153/70 H Pulse Oximetry 94 95 Oxygen Delivery Method Room Air Room Air BMI result Body Mass Index 28.1 Const Other: The patient is a 64-year-old male. He looks somewhat chronically ill. He does not appear overtly acutely ill today. He does not seem short of breath or in obvious pain although he seems somewhat chronically deconditioned. HENMT Other: The face is symmetrical. Mucous membranes are moist. Some mild erythema of the posterior pharynx. no airway swelling. No exudate. Eyes General: appearance normal, both eyes and all related structures Conjunctivae: conjunctivae normal Pupils: Equal, round and reactive pupils present EOM: EOMs intact bilaterally Neck Neck: Yes full ROM, Yes no lymphadenopathy and Yes no JVD Resp Effort & Inspection: normal respiratory effort Auscultation: clear to auscultation bilaterally Cardio Rate: regular rate Rhythm: regular rhythm Heart sounds: S1 normal heart sound present and S2 normal heart sound present GI Other: The abdomen was soft and not apparently tender. Skin General skin exam: no rashes or lesions noted Neuro Other: The patient is awake and alert. He is deaf. He was able to communicate easily with sign language. the face is symmetrical. Eye movements are intact. He moves his extremities appropriately. He seems somewhat deconditioned but does not seem to have a focal neurological deficit. Cranial nerves: Yes Equal, round and reactive pupils present Extrem Other: No peripheral edema. No calf swelling or tenderness. The patient has some generalized tenderness in the region of the right shoulder. There is no deformity. Range of motion is mildly diminished but not severely diminished. Medications Administered Discontinued Medications Generic Name Dose Route Start Last Admin Trade Name Natalia PRN Reason Stop Dose Admin Acetaminophen 975 mg 04/16/24 06:08 04/16/24 06:44 Acetaminophen 325 Mg Tablet PO 04/16/24 06:09 975 mg ONCE ONE Administration Ibuprofen 400 mg 04/16/24 06:08 04/16/24 06:44 Ibuprofen 400 Mg Tablet PO 04/16/24 06:09 400 mg ONCE ONE Administration Medical Decision Making Medical Decision Making [facility] Narrative: The patient is a 64-year-old male who has felt unwell for about 2 days with a variety of respiratory symptoms, most prominently sore throat. He has tested positive for COVID. A rapid strep is negative. Blood tests are unremarkable. Clinically I think he has COVID. His oxygenation is good and he does not seem to have any indication for hospitalization for COVID. He says he is currently not taking any prescription medications. He was offered a prescription for Paxlovid which he would like to take. I asked him several times if he was taking any prescription medications and on each occasion he said he is not currently taking any prescription medications. He was therefore prescribed Paxlovid. As a secondary complaint the patient has had some pain in his right shoulder for several days. He says the pain began after he had received an injection in his left shoulder. After the injection in his left shoulder he had slept on his right shoulder and has had pain in the right shoulder ever since. I suspect he has some kind of a muscular pain. I do not see an indication for imaging. Lab Data 04/16/24 02:56 04/16/24 02:56 Labs: Lab Results 04/16/24 04/16/24 Range/Units 02:48 02:56 WBC 8.2 (4.8-10.8) X10*3/uL RBC 4.39 L (4.60-5.80) X10*6/uL Hgb 13.5 L (14.0-18.0) g/dl Hct 38.9 L (42.0-52.0) % MCV 88.6 (80.0-98.0) fL MCH 30.8 (27.0-33.0) pg MCHC 34.7 (31.0-36.0) g/dl RDW 12.8 (11.0-16.0) % Plt Count 150 L (160-400) X10*3/uL MPV 9.5 (9.4-12.4) fL Immature Gran % (Auto) 0.9 H (0.0-0.4) % Neut % (Auto) 77.8 H (45-73) % Lymph % (Auto) 10.8 L (20-40) % [place] % (Auto) 7.6 (2-11) % Eos % (Auto) 2.9 (0-4) % Baso % (Auto) 0.0 (0-2) % Lymph # (Auto) 0.9 L (1.2-4.9) X10*3/uL [place] # (Auto) 0.6 (0.1-1.2) X10*3/uL Eos # (Auto) 0.2 (0.0-0.4) X10*3/uL Baso # (Auto) 0.0 (0.0-0.2) X10*3/uL Abs Immat Gran (auto) 0.07 H (0.00-0.03) X10*3/uL Absolute Neuts (auto) 6.4 (2.0-8.3) x10*3/uL Absolute Nucleated RBC 0.000 (0.0-0.012) X10*3/uL Nucleated RBC % (auto) 0.0 (0.0-0.2) /100WBC Sodium 142 (135-145) mmol/L Potassium 4.1 (3.3-5.1) mmol/L Chloride 110 H (96-108) mmol/L Carbon Dioxide 23 (22-29) mmol/L Anion Gap 13 (12-20) BUN 21 H (9-16) mg/dL Creatinine 1.00 (0.5-1.4) mg/dL Estim Creat Clear Calc 76.6 Estimated GFR > 60 Random Glucose 108 (60-115) mg/dL Calcium 9.3 (8.4-10.2) mg/dL Total Bilirubin 0.6 (0.0-1.0) mg/dL AST 18 (5-37) U/L ALT 21 (0-40) U/L Alkaline Phosphatase 55 (39-117) U/L Total Protein 6.7 (6.5-8.0) g/dL Albumin 3.9 (3.5-5.0) g/dL Influenza Type A (PCR) NEGATIVE (Negative) Influenza Type B (PCR) NEGATIVE (Negative) RSV RNA Qual (PCR) NEGATIVE (Negative) SARS-CoV-2 RNA (RT-PCR) POSITIVE A (Negative) S. pyogenes GrpA JACOB Negative (Negative) Discharge Plan Discharge Clinical Impression: COVID, Muscle strain of right shoulder Patient Disposition: Home, Self-Care Instructions: COVID-19 (Coronavirus Disease 2019) (ED) Additional Instructions: You have tested positive for COVID today. I think this explains your respiratory symptoms and sore throat. I have sent a prescription for medication called Paxlovid to your pharmacy. Paxlovid can help reduce the symptoms of COVID. With regard to your right shoulder I think you have strained the muscles of your right shoulder. You may use the sling provided as needed for comfort. I have sent a prescription for ibuprofen to your pharmacy as well which you may use for pain. You may also use [id number] acetaminophen (Tylenol). Please stay in touch with your regular doctor's office for additional advice as needed. Return to the emergency room if significantly worse. Prescriptions: New Paxlovid 300 mg (150 mg x 2)-100 mg tablets,dose pack See Rx Instructions .ROUTE .COMPLEX Qty: 30 0RF Rx Instructions: take TWO 150 mg tablets of nirmatrelvir with ONE 100 mg tablet of ritonavir twice daily for 5 days ibuprofen 400 mg tablet 400 mg PO Q6H PRN (Reason: pain) Qty: 14 0RF No Action sucralfate 1 gram tablet 1 g PO QID ondansetron HCl 4 mg tablet 4 mg PO Q8H PRN (Reason: nausea/vomiting) famotidine 20 mg tablet 20 mg PO BID levofloxacin 500 mg tablet 500 mg PO DAILY 7 Days Qty: 7 0RF cefuroxime axetil 500 mg tablet 500 mg PO BID Qty: 14 0RF polyethylene glycol 3350 [Miralax] 17 gram/dose powder 17 g PO BID Qty: 238 0RF benzonatate 200 mg capsule 200 mg PO TID PRN (Reason: cough) Qty: 20 0RF tramadol 50 mg tablet 50 mg PO Q6H PRN (Reason: pain) Qty: 20 0RF cefuroxime axetil 500 mg tablet 500 mg PO BID 7 Days Qty: 14 0RF lorazepam [Ativan] 1 mg tablet 1 mg PO BEDTIME PRN (Reason: sleep) Qty: 10 0RF sulfamethoxazole-trimethoprim [Bactrim DS] 800-160 mg tablet 1 tab PO BID 7 Days Qty: 14 0RF cetirizine 10 mg tablet 10 mg PO QAM bisacodyl [Dulcolax (bisacodyl)] 5 mg tablet,delayed release (DR/EC) 20 mg PO ONCE 1 Days Qty: 4 0RF Rx Instructions: take 4 tabs at noon the day before your colonoscopy polyethylene glycol 3350 [Miralax] 17 gram/dose powder 238 g PO ONCE Qty: 238 0RF Rx Instructions: As directed by gastroenterology department at [facility] terazosin 5 mg capsule 5 mg PO BEDTIME 30 Days Qty: 30 1RF Referrals: Ligia Becerra MD [Physician] - (Veronica, right shoulder pain) Interventions: ED Discharge Assessment Last Done: 04/16/24 07:05 Discharge Date/Time: 04/16/24 07:06 Print Language: American
[2024-04-16] MEDS: Acetaminophen 325 MG TABLET 975 MG PO (06:44)
[2024-04-16] MEDS: Ibuprofen 400 MG TABLET PO (06:44)
[2024-04-16 07:05] VITALS: BP 153/70; PULSE 74; RESP 16; TEMP 36.6; O2SAT 95
== END 2024-04-16 07:06 | disposition home or self-care (01) ==
PROVIDERS: Emergency Provider Emergency Medicine
DX: U07.1 COVID-19 (principal); S46.911A Strain of unspecified muscle, fascia and tendon at shoulder and upper arm level, right arm, initial encounter; X58.XXXA Exposure to other specified factors, initial encounter; J02.9 Acute pharyngitis, unspecified; Y93.9 Activity, unspecified; Y92.9 Unspecified place or not applicable; Y99.9 Unspecified external cause status; I10 Essential (primary) hypertension
CPT/HCPCS: 0241U; 36415; 51798; 80053; 85025; 87651; 99283; 99284

== ENCOUNTER 2024-05-14 11:41 | Outpatient (REF) | payer OTHER, SELFPAY ==
[2024-05-14 14:07] LABS: Appearance Urine Clear; Color Urine Yellow; Glucose Urine UA Negative (Negative); Leukocyte Esterase Urine Trace (Negative); Nitrite Urine Negative (Negative); Specific Gravity - Urine 1.025 (1.005-1.025); UMIC TRIGGER UA YES; Urine Blood Negative (Negative); Urine Ketones Negative (Negative); Urine Protein Trace mg/dL (Neg-Trace)
[2024-05-14 14:13] LABS: Bacteria Urine None Seen (None Seen); Hyaline Casts Urine 0-2 /LPF (0-2); RBC Urine 0-2 /HPF (0-2); WBC Urine 0-5 /HPF (0-5)
== END 2024-05-14 11:42 | disposition home or self-care (01) ==
LOC: HO.10HDLNP 11:41
PROVIDERS: Visit Provider Nurse Practitioner Family
DX: N39.0 Urinary tract infection, site not specified (principal)
CPT/HCPCS: 81001; 87086

== ENCOUNTER 2024-05-19 15:48 | Outpatient (REF) | payer OTHER, SELFPAY ==
--- NOTE | ~2024-05-19 | XR_ITS ---
EXAMINATION: XR SHOULDER, RIGHT CLINICAL INFORMATION: Right shoulder pain. Limited range of motion. COMPARISON: Right shoulder radiographs dated 08/15/2022. TECHNIQUE: AP external rotation, Grashey, scapular Y, and axillary views of the right shoulder. FINDINGS: Small acromioclavicular marginal osteophytes are redemonstrated. Tiny inferior glenoid marginal osteophytes are redemonstrated. No acute fracture or dislocation. Soft tissue calcification adjacent to the greater tuberosity superolaterally measuring up to 0.2 cm and posteriorly measuring up to 0.6 cm, similar when compared to the prior examination and consistent distal infraspinatus calcific tendinitis. No concerning lytic or blastic osseous lesion. XR/XR shoulder RT min 2V IMPRESSION: 1. Distal infraspinatus calcific tendinitis, similar when compared to the prior examination. 2. Mild acromioclavicular and minimal glenohumeral osteoarthritis, unchanged when compared to the prior examination. Electronically signed by: Drew Walker MD 05/20/2024 08:53 AM EDT
== END 2024-05-19 15:49 | disposition home or self-care (01) ==
LOC: HO.HHCX 15:48
PROVIDERS: Visit Provider Family Medicine
DX: M25.511 Pain in right shoulder (principal)
CPT/HCPCS: 73030

== ENCOUNTER → 2024-07-01 13:01 | Day surgery (SDC) | payer OTHER, SELFPAY ==
[2024-06-29 14:26] VITALS: BMI 36.8
--- NOTE | 2024-06-30 12:19 | HO.ANESPROP2 ---
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 [facility] Active Problems Active Problems: All Active Problems COVID (Acute) Enlarged prostate (Acute) Elevated PSA (Acute) Bladder wall thickening (Acute) Weak urinary stream (Acute) Recurrent UTI (Acute) Incomplete bladder emptying (Acute) NSTEMI (non-ST elevated myocardial infarction) (Acute) Rhinovirus (Acute) Acute coronary syndrome (Acute) Pneumonia (Acute) Spinal stenosis of lumbar region with neurogenic claudication (Acute) Lumbar spinal stenosis (Acute) Muscle spasm of back (Acute) Lumbar degenerative disc disease (Acute) Lumbar spondylosis (Acute) Lumbar radiculitis (Acute) Myofascial pain on right side (Acute) Past Medical History Medical History Personality disorder 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 Asthma Gender dysphoria Bradycardia Renal calculi Degenerative disc disease, lumbar Lumbar spinal stenosis Hearing impaired Hypertension Depression Family History Family History Other No known health problems Surgical History Surgical History H/O cervical spine surgery History of esophagogastroduodenoscopy (EGD) H/O colonoscopy Social History Social History Household Members Other:: roommate Are you a primary healthcare economics consultant to a significant other at home: No Do you presently have visiting nurse or other home services: No Alcohol intake: never Comment: overflow Patient Tobacco Use Status: Never used Tobacco Current occupational status: disabled Current occupation: right handed Meds Allergies Allergy/AdvReac Type Severity Reaction Status Date / Time No Known Allergies Allergy Verified 07/13/24 13:09 [No Known Allergies*] Home Medications ?Medication ?Instructions ?Recorded ?Confirmed ?Last Taken ?Type famotidine 20 mg tablet 20 mg PO BID 11/10/23 04/01/24 Unknown History cetirizine 10 mg tablet 10 mg PO QAM 02/23/24 04/01/24 Unknown History Exam Height,Weight and Vital Signs: Height 5 ft 1 in Weight 88.394 kg Pertinent Lab Results Pertinent Lab Results: Laboratory Tests 04/16/24 02:56 WBC 8.2 Hgb 13.5 L Hct 38.9 L Plt Count 150 L Sodium 142 Potassium 4.1 Chloride 110 H Carbon Dioxide 23 BUN 21 H Creatinine 1.00 Narrative Narrative: EKG 03/2024 3Vent. Rate : 055 BPM Atrial Rate : 055 BPM P-R Int : 194 ms QRS Dur : 094 ms QT Int : 418 ms P-R-T Axes : 059 049 023 degrees QTc Int : 399 ms Sinus bradycardia Nonspecific T wave abnormality Abnormal ECG When compared with ECG of 05-FEB-2024 19:15, No significant change was found Assessment and Plan Assessment Anesthesia Assessment: Chart Reviewed
--- NOTE | 2024-07-01 13:20 | PC.NURSE ---
asl cymraes turkish line attendant used with voyce communication. patient is with a friend who is asl cymraes/deaf. md prather by bedside talking with patient regarding his prep. patient was still drinking prep at 1030am and 1230pm today that should of been done yesterday. ate hamburger and niuean fries yesterday.
--- NOTE | 2024-07-01 13:38 | PC.NURSE ---
using the asl rwandan voyce mobility specialist patient is aware of the plan of care. spoke to alverto with hospital van to pickup patient tomorrow at 1045am and a ride home for around 2pm. instructed no solid food and what can be eaten for today. md prather just had a large bowel movement large dark brown.
== END ==
LOC: HO.SSS 13:02
PROVIDERS: Visit Provider Internal Medicine
DX: Z12.11 Encounter for screening for malignant neoplasm of colon (principal); Z53.09 Procedure and treatment not carried out because of other contraindication; I10 Essential (primary) hypertension; Z79.899 Other long term (current) drug therapy
CPT/HCPCS: J2003; J2704

== ENCOUNTER 2024-07-02 10:56 | Day surgery (SDC) | payer OTHER, SELFPAY ==
[2024-07-02 12:24] VITALS: BMI 33.7
--- NOTE | 2024-07-02 12:31 | P.CONAN_ITS ---
[facility] Active Problems Active Problems: All Active Problems COVID (Acute) Enlarged prostate (Acute) Elevated PSA (Acute) Bladder wall thickening (Acute) Weak urinary stream (Acute) Recurrent UTI (Acute) Incomplete bladder emptying (Acute) NSTEMI (non-ST elevated myocardial infarction) (Acute) Rhinovirus (Acute) Acute coronary syndrome (Acute) Pneumonia (Acute) Spinal stenosis of lumbar region with neurogenic claudication (Acute) Lumbar spinal stenosis (Acute) Muscle spasm of back (Acute) Lumbar degenerative disc disease (Acute) Lumbar spondylosis (Acute) Lumbar radiculitis (Acute) Myofascial pain on right side (Acute) Past Medical History Medical History Personality disorder 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 Asthma Gender dysphoria Bradycardia Renal calculi Degenerative disc disease, lumbar Lumbar spinal stenosis Hearing impaired Hypertension Depression Family History Family History Other No known health problems Surgical History Surgical History H/O cervical spine surgery History of esophagogastroduodenoscopy (EGD) H/O colonoscopy History of Problems with Anesthesia: No Social History Social History Household Members Other:: roommate Are you a primary youth care specialist to a significant other at home: No Do you presently have visiting nurse or other home services: No Alcohol intake: never Comment: overflow Patient Tobacco Use Status: Never used Tobacco Use of substances other than those prescribed or required for medical reasons: No Are you DNR?: No Advance Directives: No Advance Directives Information Provided: Yes Recently lost weight without trying: No Current occupational status: disabled Current occupation: right handed Meds Allergies Allergy/AdvReac Type Severity Reaction Status Date / Time No Known Allergies Allergy Verified 07/02/24 13:14 [No Known Allergies*] Home Medications ?Medication ?Instructions ?Recorded ?Confirmed ?Last Taken ?Type famotidine 20 mg tablet 20 mg PO BID 11/10/23 04/01/24 Unknown History sucralfate 1 gram tablet 1 g PO QID 11/10/23 04/01/24 Unknown History cetirizine 10 mg tablet 10 mg PO QAM 02/23/24 04/01/24 Unknown History Assessment and Plan Final Anesthetic Review History of Problems with Anesthesia: No NPO: Yes ASA Class: II Final Preanesthetic Review: Meds/Allgs Chart Reviewed, Consent Obtained/Reviewed and Anes Risks/Benef Reviewed Patient Risk: Low Procedure Risk: Low Anesthetic Plan Anesthetic Plan: MAC: Disposition: Standard PACU
[2024-07-02] MEDS: Sodium Phosphate,Mono-Dibasic 133 ML ENEMA PR (12:55)
[2024-07-02 13:11] VITALS: BP 136/64; PULSE 48; RESP 16; TEMP 36.1; O2SAT 97
--- NOTE | 2024-07-02 13:20 | MHC.SHP ---
Pre-Procedural Eval Section A - 24 Hr Update-Section A only Date of Service: 07/02/24 The patient is an INPATIENT: No The patient has been examined within 24 hours of the surgical procedure. The History & Physical has been completed within 30 days and I have reviewed it.: No Section B - Complete if H&P > 30 days Chief Complaint: screening Relevant Family History (Specify if Yes): No Relevant Social History: None Present Medications: see Short Stay Collaborative assessment Medical History: Significant History (Personality disorder 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 Asthma Gender dysphoria Bradycardia Renal calculi Degenerative disc disease, lumbar Lumbar spinal stenosis Hearing impaired Hypertension Depression) History of Previous Operations: Relevant previous surgery/procedure and date(s) (H/O cervical spine surgery History of esophagogastroduodenoscopy (EGD) H/O colonoscopy) Allergies: Allergies Allergy/AdvReac Type Severity Reaction Status Date / Time No Known Allergies Allergy Verified 07/02/24 13:14 [No Known Allergies*] Review of Systems Sugical H&P ROS: Negative: Constitution, Cardiovascular and Respiratory Exam Surgical H&P Exam: Normal: Heart, Normal: Lungs, Normal: Extremities and Normal: Abdomen Plan Diagnosis/Plan: Unchanged I have reviewed the history and physical and performed a pertinent physical examination on my patient. No changes have occurred unless specified. Time Spent With Patient Time: Total time managing care of this patient today ____ minutes.
--- NOTE | 2024-07-02 14:14 | P.OPN-COLO_ITS ---
Colonoscopy Operative Note Operative Note Date of Service: 07/02/24 Narrative: COLONOSCOPY TILL CECUM WITH SNARE POLYPECTOMY, SUBMUCOSAL INJECTION AND HEMOCLIP PLACEMENT Pre-op diagnosis: Colon cancer screening. Post-op diagnosis:? Colon polyps, Diverticulosis, hemorrhoids Endoscopist:? Trung Slade MD Anesthesia:?MAC Consent: Indications for the procedure and potential complications of bleeding, perforation, reaction to medications and missed diagnosis were discussed with the patient and informed consent was obtained. Instrument: Olympus PCF H 190 L variable stiffness pediatric colonoscope Monitoring: Vital signs and clinical assessment, intermittent blood pressure monitoring, continuous EKG monitoring, Pulse oximetry and Carbon Dioxide monitoring were done throughout the procedure. Please see anesthesia flowsheet. Colon withdrawl time was 25 minutes. Procedure: The patient was placed in the left lateral decubitis position and pre-procedure medications were administered. After a digital rectal examination of the ano-rectum, the video colonoscope was inserted into the rectum and advanced through the colon to the cecum. The colonoscope was slowly withdrawn in a retrograde panoramic fashion and the colon mucosa was carefully examined including a retroflexed view of the rectum. Findings and interventions are described below. Procedure Difficulty: without difficulty Findings: Terminal Ileum: Not evaluated Cecum: Normal Ascending Colon: A 12-15 mm flat polyp in the proximal AC at 75 cms. Polyp was raised with 3 cc of Eleview and removed with a stiff hot snare. Polypectomy site was closed with 1 hemoclip Transverse Colon: A 12-15 mm sessile polyp in the distal transverse colon at 55 cms. Polyp was removed with a hot snare. Descending Colon: Moderate diverticulosis Sigmoid Colon: Moderate diverticulosis Rectum: Normal Ano-rectum: Moderate internal hemorrhoids Colon preparation: Good after copious irrigation. [place] Bowel Preparation Scale Right colon; 2 Transverse colon: 2 Left colon; 2 (0 = Unprepared colon segment with mucosa not seen due to solid stool that can not be cleared. 1 = Portion of mucosa of the colon segment seen, but other areas of the colon segment not well seen due to staining, residual stool and/or opaque liquid. 2 = Minor amount of residual staining, small fragments of stool and/or opaque liquid, but mucosa of colon segment seen well. 3 = Entire mucosa of colon segment seen well with no residual staining, small fragments of stool or opaque liquid) Impression and Post Procedure Diagnosis: Colonoscopy Findings: Two medium sized polyps were removed Moderate diverticulosis seen in the left colon Moderate hemorrhoids on retroflexed exam. Plan: Pt has a FU appointment on 07/16/24 with Raegan Day NP Repeat Colonoscopy in 3 years if polyps are adenomatous and 10 year if polyps are hyperplastic. Above findings were reviewed with the patient and relevant handouts were given and the discharge area. BIOPSIES SHOWED: A. Colon, ascending, polypectomy: Colonic mucosa with mild surface hyperplastic changes and small lymphoid aggregates. B. Colon, transverse at 55 cm, polypectomy: Fragments of tubular adenoma; negative for high-grade dysplasia or carcinoma Letter sent advising repeat colon in 3 years. Pt was placed on the colonoscopy recall list
[2024-07-02 14:18] VITALS: BP 116/49; PULSE 61; RESP 16; TEMP 36.4; O2SAT 94
[2024-07-02 14:33] VITALS: BP 126/48; PULSE 69; RESP 18; O2SAT 99
[2024-07-02 14:48] VITALS: BP 118/67; PULSE 56; RESP 18; TEMP 36.6; O2SAT 99
== END 2024-07-02 15:20 | disposition home or self-care (01) ==
PROVIDERS: Visit Provider Internal Medicine Gastroenterology
PROC: 0DJD8ZZ Inspection of Lower Intestinal Tract, Via Natural or Artificial Opening Endoscopic (ICD-10-PCS; CPT 45378; principal; 2024-07-02 13:50)
DX: Z12.11 Encounter for screening for malignant neoplasm of colon (principal); D12.5 Benign neoplasm of sigmoid colon; K57.30 Diverticulosis of large intestine without perforation or abscess without bleeding; K64.8 Other hemorrhoids; J45.909 Unspecified asthma, uncomplicated; F64.0 Transsexualism; I10 Essential (primary) hypertension; E66.9 Obesity, unspecified; Z68.36 Body mass index [BMI] 36.0-36.9, adult; Z87.442 Personal history of urinary calculi; Z79.899 Other long term (current) drug therapy
CPT/HCPCS: 45385; 45381; 88305

== ENCOUNTER → 2024-07-02 10:56 | Outpatient (BNV) | payer OTHER, SELFPAY | PROVIDERS: Visit Provider Internal Medicine Gastroenterology | DX: Z12.11 Encounter for screening for malignant neoplasm of colon (principal); D12.3 Benign neoplasm of transverse colon; K63.5 Polyp of colon; K57.90 Diverticulosis of intestine, part unspecified, without perforation or abscess without bleeding | CPT/HCPCS: 45381; 45385 ==

== ENCOUNTER 2024-07-13 12:34 | Outpatient (AMB) | payer OTHER, SELFPAY ==
--- NOTE | 2024-07-13 13:07 | MHC.OFFVIS ---
Vital Signs 07/13/24 13:09 Height 5 ft 3 in Weight 189 lb 9.561 oz BMI 33.6 BP 100/64 Blood Pressure Location Lt brachial Position Sitting Pulse 58 Pulse Source Pulse Oximeter Pulse Oximetry (%) 99 Oxygen Delivery Method Room Air Intake Visit Reasons: s/p colonoscopy/ abd pain Intake Note: Ashley presents in office today for a scheduled s/p FUV colo w/ RM CC; Any changes or new sx since last visit? Pt has been experiencing abd and back pain, pt also experiencing difficulties with dietary restrictions. Pt has been having constipation and bloating as well. Pt also reports some intermittent difficulty with urination and odor? Livestock Nutrition Territory Manager was having difficulty with this question. Any labs or diagnostics since last visit? ?None Livestock Nutrition Territory Manager Required: Yes Livestock Nutrition Territory Manager Services: Livestock Nutrition Territory Manager Present Livestock Nutrition Territory Manager Name: [id number] Anitha Information Interpreted: non-clinical & clinical Allergies No Known Allergies [No Known Allergies*] Allergy (Verified 07/13/24 13:09) HPI HPI s/p colonoscopy/ abd pain: Details: LAST VISIT: Screen for colon cancer Plan Patient denies any cardiac or respiratory symptoms.? Denies any issues with anesthesia in the past.? Denies any history of sleep apnea.? No history infectious diseases in the past or present.? Not on any anticoagulation therapy.? No family or personal history of colon cancer or polyps.? Patient denies melena, hematochezia, unintentional weight loss or ribbon like stools.? Discussed at length the pre-procedure,? prep, diet & medications as well as what to expect prior, during and after the procedure.?? Stressed the importance of good bowel prep.? Recommended the use of Vaseline or Calmoseptine OTC & baby wipes with bowel movements to promote comfort.? ?Patient verbalizes understanding and agrees to plan of care.? He/She was given the opportunity to ask questions and all questions answered.? We will see patient after the procedure.? ? Please use floral designer for all appointments Medications New bisacodyl (Dulcolax (bisacodyl)) take 4 tabs at noon the day before your colonoscopy 20 mg (4 x 5 mg) PO ONCE 4 tabs 0RF 1 day Z12.11 polyethylene glycol 3350 (Miralax) As directed by gastroenterology department at [facility] 238 grams PO ONCE 238 grams 0RF Z12.11 COLONOSCOPY Findings: Terminal Ileum: Not evaluated Cecum: Normal Ascending Colon: A 12-15 mm flat polyp in the proximal AC at 75 cms. Polyp was raised with 3 cc of [place] and removed with a stiff hot snare. Polypectomy site was closed with 1 hemoclip Transverse Colon: A 12-15 mm sessile polyp in the distal transverse colon at 55 cms. Polyp was removed with a hot snare. Descending Colon: Moderate diverticulosis Sigmoid Colon: Moderate diverticulosis Rectum: Normal Ano-rectum: Moderate internal hemorrhoids Colon preparation: Good after copious irrigation. [place] Bowel Preparation Scale Right colon; 2 Transverse colon: 2 Left colon; 2 (0 = Unprepared colon segment with mucosa not seen due to solid stool that cannot be cleared. 1 = Portion of mucosa of the colon segment seen, but other areas of the colon segment not well seen due to staining, residual stool and/or opaque liquid. 2 = Minor amount of residual staining, small fragments of stool and/or opaque liquid, but mucosa of colon segment seen well. 3 = Entire mucosa of colon segment seen well with no residual staining, small fragments of stool or opaque liquid) Impression and Post Procedure Diagnosis: Colonoscopy Findings: Two medium sized polyps were removed Moderate diverticulosis seen in the left colon Moderate hemorrhoids on retroflexed exam. Plan: Pt has a FU appointment on 07/16/24 with Raegan Day NP Repeat Colonoscopy in 3 years if polyps are adenomatous and 10 year if polyps are hyperplastic. Above findings were reviewed with the patient and relevant handouts were given and the discharge area. BIOPSIES SHOWED: A. Colon, ascending, polypectomy: Colonic mucosa with mild surface hyperplastic changes and small lymphoid aggregates. B. Colon, transverse at 55 cm, polypectomy: Fragments of tubular adenoma; negative for high-grade dysplasia or carcinoma Letter sent advising repeat colon in 3 years. Pt was placed on the colonoscopy recall list [facility] Medical History (Updated 08/08/24 @ 14:23 by VICKI Mann) Tubular adenoma of colon Personality disorder 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 Asthma Gender dysphoria Bradycardia Renal calculi Degenerative disc disease, lumbar Lumbar spinal stenosis Hearing impaired Hypertension Depression Surgical History (Reviewed 07/13/24 @ 13:09 by Devin Hernadez [facility] H/O cervical spine surgery History of esophagogastroduodenoscopy (EGD) H/O colonoscopy Family History Other No known health problems Social History Household Members Other:: roommate Are you a primary daycare assistant to a significant other at home: No Do you presently have visiting nurse or other home services: No Alcohol intake: never Comment: overflow Patient Tobacco Use Status: Never used Tobacco Current occupational status: disabled Current occupation: right handed Review of Systems Const Denies weight gain and Denies weight loss ENT Reports no additional complaints, Denies dysphagia and Denies odynophagia Card Reports no additional complaints Resp Reports no additional complaints GI Denies abdominal pain, Denies belching, Denies melena, Reports bloating, Denies change in bowel habits, Reports constipation, Denies dysphagia, Denies excessive flatus, Denies dyspepsia, Reports heartburn, Denies diarrhea, Denies loose stools, Denies nausea, Denies odynophagia and Denies vomiting Reports urinary urgency Musc Reports no additional complaints Neuro Reports no additional complaints Psych Reports no additional complaints Endo Reports no additional complaints Physical Exam Vital Signs: Last Vital Signs Pulse 58 07/13/24 13:09 BP 100/64 07/13/24 13:09 Pulse Ox 99 07/13/24 13:09 Oxygen Delivery Method Room Air 07/13/24 13:09 BMI result Body Mass Index 33.6 Const Other: Patient is ambulating using wheeled walker General: healthy appearing and no acute distress Nutritional Appearance: obese Orientation/consciousness: patient oriented x3 Resp Effort & Inspection: normal respiratory effort, able to speak in complete sentences, no tracheal deviation and symmetric chest movement Auscultation: clear to auscultation bilaterally Cardio Rate: regular rate GI Inspection: Yes normal to inspection, No distended and Yes obesity Palpation (GI): Soft to palpation, not firm, nontender and No hepatosplenomegaly present Auscultation: normal bowel sounds General: Yes no CVA tenderness Back/Spine/Pelvis Back: no CVA tenderness Skin General skin exam: elasticity normal, turgor normal and dry skin Neuro General: patient oriented x3 Psych Appearance: grossly normal Mental Status: mental status grossly normal Assessment & Plan Assessment & Plan (1) Postprandial abdominal bloating: Code(s): R14.0 - Abdominal distension (gaseous) (2) Constipation: Code(s): K59.00 - Constipation, unspecified Qualifiers: Constipation type: slow transit constipation Qualified Code(s): K59.01 - Slow transit constipation (3) Tubular adenoma of colon: Code(s): D12.6 - Benign neoplasm of colon, unspecified Category: Medical (4) Status post colonoscopy: Code(s): Z98.890 - Other specified postprocedural states (5) GERD (gastroesophageal reflux disease): Code(s): K21.9 - Gastro-esophageal reflux disease without esophagitis Category: Medical Qualifiers: Esophagitis presence: esophagitis presence not specified Qualified Code(s): K21.9 - Gastro-esophageal reflux disease without esophagitis Plan Tubular adenoma found in transverse colon without high-grade dysplasia or carcinoma. Patient will return for colorectal screening in 3-5 years. Patient reports abdominal bloating and constipation. Will discuss list of food that could be contributing to this and also him being constipated could cause additional cramping. Patient will start taking Dulcolax daily. Increase fluid intake and activity to promote better bowel motility. Occasional epigastric pain and dyspepsia. Will send script for pantoprazole daily. Avoid dietary triggers and late night snacking. Staying upright for minimum 3 hours after meals discussed with patient. Patient was encouraged to call his urologist to discuss his urinary symptoms. Patient denies any fever or chills. Patient will follow-up in the office in 2 months, sooner on as needed basis. Patient is agreeable to plan of care and verbalizes understanding of instructions. They were given the opportunity to ask questions and all questions answered. Thank you for allowing me to participate in their care Medications: New bisacodyl (Dulcolax (bisacodyl)) 10 mg (2 x 5 mg) PO BEDTIME 60 tabs 4RF pantoprazole take one tablet half an hour before breakfast 40 mg PO DAILY 30 tabs 2RF K21.9 - Gastro-esophageal reflux disease without esophagitis Coding Level of Care Code Est Pt Level 4 (16203) Diagnoses Postprandial abdominal bloating R14.0 Slow transit constipation K59.01 Constipation type: slow transit constipation Tubular adenoma of colon D12.6 Status post colonoscopy Z98.890 Gastroesophageal reflux disease, unspecified whether esophagitis present K21.9 Esophagitis presence: esophagitis presence not specified Time Spent (min) 35 Comment 25 minutes spent with patient and additional 10 minutes spent reviewing his records
[2024-07-13 13:09] VITALS: BP 100/64; PULSE 58; O2SAT 99; BMI 33.6
--- OUTSIDE RECORDS SUMMARY | 2024-07-20 13:50 | XMS_ITS | Clinical Summary ---
Author Organization Unknown Care Team Providers Care Electronic Train Control Technician Name Role Phone DIONE CABA, MANAGE Unavailable Unavailable GARDENIA GARVIN, CRAIG Unavailable Unavailable Payers Payer Name Policy Type Policy Number Effective Date Expira tion Date [place] - [place] [id number] MEDICARE - [place]GS [place] - [id number] [place] USED PAYER [id number] Problems Condition Name Condition Details Condition Category Status Onset Date Resolution Date Last Treatment Date Treating Clinician Comments DEPRESSION, UNSPECIFIED Active 12-18 00:00: 00 DEAF NONSPEAKING, NOT ELSEWHERE CLASSIFIED Active 02-20 00:00: 00 Allergies, Adverse Reactions, Alerts Allergy Name Allergy Type Status Severity Reaction(s) Onset Date Inactive Date Treating Clinician Comments NKA Propensity to adverse reactions Active 2022-02 20:21:2 6 Medications Ordered Medication Name Filled Medication Name Start Date Stop Date Current Medication? Ordering Clinician Indication Dosage Frequency Signature (SIG) Comments Components estradiol 2 mg tablet 04-07 00:00: 00 06-04 00:00 :00 No [id number] Per instruc tions EVERY DAY Per instructio ns EVERY DAY (route: oral) Med Classific ation: Endocrine dutasteride 0.5 mg capsule 04-11 00:00: 00 06-04 00:00 :00 No [id number] Per instruc tions EVERY DAY Per instructio ns EVERY DAY (route: oral) Med Classific ation: Genitouri nary Therapy aripiprazol e 2 mg tablet 2020-08 00:00: 00 12-20 23:59 :00 No [id number] 1 tablet EVERY AM 1 tablet EVERY AM (route: oral) Med Classific ation: Central Nervous System Agents duloxetine 30 mg capsule,del ayed release 2020-08 00:00: 00 12-20 23:59 :00 No [id number] 1 capsule DAILY 1 capsule DAILY (route: oral) Med Classific ation: Central Nervous System Agents duloxetine 60 mg capsule,del ayed release 2020-08 0 00:00: 00 12-20 23:59 :00 No [id number] 1 capsule DAILY 1 capsule DAILY (route: oral) Med Classific ation: Central Nervous System Agents hydroxyzine HCl 25 mg tablet 2020-08 0 00:00: 00 08-20 23:59 :00 No [id number] 2 tablet BEDTIME 2 tablet BEDTIME (route: oral) Med Classific ation: Central Nervous System Agents zolpidem 10 mg tablet 2020-08 00:00: 00 12-20 23:59 :00 No [id number] 1 tablet BEDTIME 1 tablet BEDTIME (route: oral) Med Classific ation: Central Nervous System Agents famotidine 20 mg tablet 2020-08 00:00: 00 12-20 23:59 :00 No [id number] 1 tablet DAILY 1 tablet DAILY (route: oral) Med Classific ation: Gastroint estinal Therapy Agents aspirin 81 mg chewable tablet 2020-08 00:00: 00 09-09 23:59 :00 No [id number] 1 tablet DAILY 1 tablet DAILY (route: oral) Med Classific ation: Hematolog ical Agents meclizine 12.5 mg tablet 2020-08 00:00: 00 08-19 23:59 :00 No [id number] 1 tablet NEEDED 1 tablet NEEDED (route: oral) Med Classific ation: Gastroint estinal Therapy Agents pravastatin 20 mg tablet 2020-08 00:00: 00 09-09 23:59 :00 No [id number] 1 tablet BEDTIME 1 tablet BEDTIME (route: oral) Med Classific ation: Cardiovas cular Therapy Agents hydroxyzine HCl 25 mg tablet 08-20 00:00: 00 12-20 23:59 :00 No [id number] 1 tablet DIRECTED 1 tablet DIRECTED (route: oral) Med Classific ation: Central Nervous System Agents amoxicillin 500 mg capsule 09-03 00:00: 00 09-09 23:59 :00 No [id number] 1 capsule EVERY 8 HOURS 1 capsule EVERY 8 HOURS (route: oral) Med Classific ation: Anti-Infe ctive Agents lidocaine 5 % topical patch 09-03 00:00: 00 10-02 23:59 :00 No [id number] 1 adhesiv e patch, medicat ed DAILY 1 adhesive patch, medicated DAILY (route: topical) Med Classific ation: Dermatolo gical ondansetron 4 mg disintegrat ing tablet 09-03 00:00: 00 09-09 23:59 :00 No [id number] 1 tablet 3 TIMES DAILY 1 tablet 3 TIMES DAILY (route: oral) Med Classific ation: Gastroint estinal Therapy Agents tamsulosin 0.4 mg capsule 09-03 00:00: 00 10-02 23:59 :00 No [id number] 1 capsule EVERY PM 1 capsule EVERY PM (route: oral) Med Classific ation: Genitouri nary Therapy pravastatin 20 mg tablet 09-06 00:00: 00 12-20 23:59 :00 No [id number] 1 tablet BEDTIME 1 tablet BEDTIME (route: oral) Alternate Route: NONE. Med Classific ation: Cardiovas cular Therapy Agents duloxetine 60 mg capsule,del ayed release 12-20 00:00: 00 Yes [id number] 1 capsule EVERY AM 1 capsule EVERY AM (route: oral) Med Classific ation: Central Nervous System Agents quetiapine 50 mg tablet 12-20 00:00: 00 02-06 23:59 :00 No [id number] 1 tablet BEDTIME 1 tablet BEDTIME (route: oral) Med Classific ation: Central Nervous System Agents dutasteride 0.5 mg capsule 12-20 00:00: 00 Yes [id number] 1 capsule DAILY 1 capsule DAILY (route: oral) Med Classific ation: Genitouri nary Therapy estradiol 0.1 mg/24 hr semiweekly transdermal patch 12-20 00:00: 00 Yes [id number] 1 patch, transde rmal semiwee kly 2 TIMES A WEEK 1 patch, transderma l semiweekly 2 TIMES A WEEK (route: transderma l) Med Classific ation: Endocrine famotidine 20 mg tablet 5-26 00:00: 00 Yes [id number] 1 tablet EVERY AM 1 tablet EVERY AM (route: oral) Med Classific ation: Gastroint estinal Therapy Agents pravastatin 20 mg tablet 6-16 00:00: 00 Yes [id number] 1 tablet BEDTIME 1 tablet BEDTIME (route: oral) Med Classific ation: Cardiovas cular Therapy Agents quetiapine 50 mg tablet 6-29 00:00: 00 Yes [id number] 2 tablet BEDTIME 2 tablet BEDTIME (route: oral) Med Classific ation: Central Nervous System Agents Vital Signs Vital Name Observation Time Observation Value Commen ts Height 2022-02-20 15:55:01.000 60 [in_us] Pulse 2022-02-20 06:30:00.000 78 /min Respirations 2022-02-20 06:30:00.000 18 /min Systolic Blood Pressure 2022-02-20 06:30:00.000 130 mm [Hg] Diastolic Blood Pressure 2022-02-20 06:30:00.000 78 mm [Hg] Plan of Treatment Planned Activity Planned Date Details Comments Future Scheduled Test SKILLED NU RSE TO PERFORM GENERAL ASSESSMENT AND EVALUATE PATIENT, IDENTIFY PRIMARY AND CO-MORBID CONDITIONS, AND DEVELOP PATIENT SPECIFIC PLAN OF CARE THAT INCLUDES PATIENT GOAL FOR HOME HEALTH. CLINICAL SUMMARY SOC: THE PATIENT IS RECEIVING HOMECARE DUE TO NEW ONSET/EXACERBATION OF: DEPRESSION, UNSPECIFIED. CLIENT IS WELL KNOWN TO [employer] [facility]. CLIENT HAS POOR INSIGHT INTO CONDITION. HE HAS DIFFICULTY ADHERING TO TREATMENT PLAN INDEPENDENTLY. CLIENT REPORTS INCREASED FEELINGS OF DEPRESSION SECONDARY TO HIS PARTNER PASSING AWAY LAST WEEK. MOTIVATION FOR SELF CARE IS LOW. CLIENT IS RESISTANT TO SUGGESTIONS TO ATTEND STRUCTURED ACTIVITIES OR RELAPSE PREVENTION PROGRAMS. COMPLIANCE WITH MEDICATION/MD APPOINTMENTS HAS BEEN POOR. PRIOR TO READMISSION, CLIENT HAD MISSED 20% OF PREPOURED MEDS. RECENT HOSPITALIZATION/INPATIENT ADMISSION RELATED TO: CLIENT HAS NOT HAD INPATIENT ADMISSIONS IN PAST SIXTY DAYS. NEW OR CHANGED MEDICATIONS PERTINENT TO THE PLAN OF CARE: THERE WERE NO CHANGES IN TREATMENT IN THE PAST SIXTY DAYS. PATIENT LIVING SITUATION/CAREGIVER STATUS: CLIENT LIVES ALONE AND RECEIVES LIMITED SUPPORT FROM FAMILY, HOWEVER FAMILY LIVES IN [place]. RECENT FALLS: CLIENT IS AMBULATING WELL AND THERE WERE NO FALLS NOTED OR REPORTED IN THE PAST SIXTY DAYS. SKILLED TEACHING AND TRAINING, OBSERVATION AND ASSESSMENT, AND/OR TREATMENTS THAT REQUIRE SKILLED CARE: CLIENT HAS POOR INSIGHT INTO CONDITION. HE HAS DIFFICULTY ADHERING TO TREATMENT PLAN INDEPENDENTLY. CLIENT REQUIRES SN SERVICES 5X/WEEK FOR MEDICATION ADMINISTRATION AND MENTAL STATUS ASSESSMENT CLIENT IS UNABLE TO SELF MANAGE OWN MEDICATION REGIMEN SAFELY AND INDEPENDENTLY. SN TO ASSESS COMPLIANCE AND EFFECTIVENESS OF MED REGIME. ADDITIONAL DISCIPLINES NEEDED OR DECLINED ORDERED [code = SKILLED NURSE TO PERFORM GENERAL ASSESSMENT AND EVALUATE PATIENT, IDENTIFY PRIMARY AND CO-MORBID CONDITIONS, AND DEVELOP PATIENT SPECIFIC PLAN OF CARE THAT INCLUDES PATIENT GOAL FOR HOME HEALTH. CLINICAL SUMMARY SOC: THE PATIENT IS RECEIVING HOMECARE DUE TO NEW ONSET/EXACERBATION OF: DEPRESSION, UNSPECIFIED. CLIENT IS WELL KNOWN TO [employer] [facility]. CLIENT HAS POOR INSIGHT INTO CONDITION. HE HAS DIFFICULTY ADHERING TO TREATMENT PLAN INDEPENDENTLY. CLIENT REPORTS INCREASED FEELINGS OF DEPRESSION SECONDARY TO HIS PARTNER PASSING AWAY LAST WEEK. MOTIVATION FOR SELF CARE IS LOW. CLIENT IS RESISTANT TO SUGGESTIONS TO ATTEND STRUCTURED ACTIVITIES OR RELAPSE PREVENTION PROGRAMS. COMPLIANCE WITH MEDICATION/MD APPOINTMENTS HAS BEEN POOR. PRIOR TO READMISSION, CLIENT HAD MISSED 20% OF PREPOURED MEDS. RECENT HOSPITALIZATION/INPATIENT ADMISSION RELATED TO: CLIENT HAS NOT HAD INPATIENT ADMISSIONS IN PAST SIXTY DAYS. NEW OR CHANGED MEDICATIONS PERTINENT TO THE PLAN OF CARE: THERE WERE NO CHANGES IN TREATMENT IN THE PAST SIXTY DAYS. PATIENT LIVING SITUATION/CAREGIVER STATUS: CLIENT LIVES ALONE AND RECEIVES LIMITED SUPPORT FROM FAMILY, HOWEVER FAMILY LIVES IN [place]. RECENT FALLS: CLIENT IS AMBULATING WELL AND THERE WERE NO FALLS NOTED OR REPORTED IN THE PAST SIXTY DAYS. SKILLED TEACHING AND TRAINING, OBSERVATION AND ASSESSMENT, AND/OR TREATMENTS THAT REQUIRE SKILLED CARE: CLIENT HAS POOR INSIGHT INTO CONDITION. HE HAS DIFFICULTY ADHERING TO TREATMENT PLAN INDEPENDENTLY. CLIENT REQUIRES SN SERVICES 5X/WEEK FOR MEDICATION ADMINISTRATION AND MENTAL STATUS ASSESSMENT CLIENT IS UNABLE TO SELF MANAGE OWN MEDICATION REGIMEN SAFELY AND INDEPENDENTLY. SN TO ASSESS COMPLIANCE AND EFFECTIVENESS OF MED REGIME. ADDITIONAL DISCIPLINES NEEDED OR DECLINED ORDERED] Future Scheduled Test SKILLED NU RSE TO O/A OF PATIENTS MENTAL/BEHAVIORAL STATUS, ASSESS VITAL SIGNS BP, P, R WEEKLY AND PRN ALLOW 2 PRNS FOR MEDICATION MANAGEMENT. [code = SKILLED NURSE TO O/A OF PATIENTS MENTAL/BEHAVIORAL STATUS, ASSESS VITAL SIGNS BP, P, R WEEKLY AND PRN ALLOW 2 PRNS FOR MEDICATION MANAGEMENT.] Future Scheduled Test SKILLED NU RSE FOR O/A OF GENERAL HEALTH STATUS OF PAIN, CARDIAC, RESPIRATORY, GASTROINTESTINAL, GENITOURINARY, SKIN, NEUROLOGIC, ENDOCRINE SYSTEMS TO IDENTIFY CHANGES ASSOCIATED WITH EXACERBATION FOR EARLY INTERVENTION OF COMPLICATIONS ASSESS WEEKLY AND PRN [code = SKILLED NURSE FOR O/A OF GENERAL HEALTH STATUS OF PAIN, CARDIAC, RESPIRATORY, GASTROINTESTINAL, GENITOURINARY, SKIN, NEUROLOGIC, ENDOCRINE SYSTEMS TO IDENTIFY CHANGES ASSOCIATED WITH EXACERBATION FOR EARLY INTERVENTION OF COMPLICATIONS ASSESS WEEKLY AND PRN ] Future Scheduled Test SKILLED NU RSE FOR MEDICATION ADMINISTRATION PER MEDICATION LIST TO BE PERFORMED ADMINISTER MEDICATIONS 5X/WEEK. PREPOUR PM/HS DAILY AND WEEKENDS. [code = SKILLED NURSE FOR MEDICATION ADMINISTRATION PER MEDICATION LIST TO BE PERFORMED ADMINISTER MEDICATIONS 5X/WEEK. PREPOUR PM/HS DAILY AND WEEKENDS. ] Future Scheduled Test PATIENT MA Y HAVE ONE SET OF EMERGENCY MEDICATION NOT TO BE PRE-POURED ANY SOONER THAN 24 HOURS BEFORE SEVERE INCLEMENT WEATHER AND FOLLOWING SKILLED NURSE EVALUATION OF PATIENT SAFETY. [code = PATIENT MAY HAVE ONE SET OF EMERGENCY MEDICATION NOT TO BE PRE-POURED ANY SOONER THAN 24 HOURS BEFORE SEVERE INCLEMENT WEATHER AND FOLLOWING SKILLED NURSE EVALUATION OF PATIENT SAFETY.] Future Scheduled Test SKILLED NU RSE FOR O/A AND SKILLED TEACHING RELATED TO MANAGEMENT OF DEPRESSIVE SYMPTOMS AND/OR DEPRESSION.SN TO REPORT SIGNIFICANT CHANGE IN DEPRESSIVE SYMPTOMS TO CLINICAL PROVIDER FOR EARLY INTERVENTION. [code = SKILLED NURSE FOR O/A AND SKILLED TEACHING RELATED TO MANAGEMENT OF DEPRESSIVE SYMPTOMS AND/OR DEPRESSION.SN TO REPORT SIGNIFICANT CHANGE IN DEPRESSIVE SYMPTOMS TO CLINICAL PROVIDER FOR EARLY INTERVENTION.] Future Scheduled Test SKILLED NU RSE FOR O/A OF PATIENT'S RISK FOR VIOLENCE TOWARD SELF AND TO PROVIDE INTERVENTION TECHNIQUES TO PROMOTE SAFETY TO PATIENT AND OTHERS [code = SKILLED NURSE FOR O/A OF PATIENT'S RISK FOR VIOLENCE TOWARD SELF AND TO PROVIDE INTERVENTION TECHNIQUES TO PROMOTE SAFETY TO PATIENT AND OTHERS] Future Scheduled Test MEDICATION S WILL BE HELD AND STORED IN LOCKBOX [code = MEDICATIONS WILL BE HELD AND STORED IN LOCKBOX] Future Scheduled Test SKILLED NU RSE MAY PICKUP AND TRANSPORT MEDICATIONS [code = SKILLED NURSE MAY PICKUP AND TRANSPORT MEDICATIONS] Goal 2022-03-26 Patient Goal - T O PREVENT READMISSION TO HOSPITAL AND TO TAKE MEDICATIONS PRESCRIBED Goal Provider Goal - A PLAN OF CARE WILL BE ESTABLISHED THAT MEETS PATIENT'S HALFWAY NEEDS AND INCLUDES PATIENT GOAL FOR HOME HEALTH. Goal Provider Goal - ALTERED MENTAL/BEHAVIORAL STATUS WILL BE IDENTIFIED PROMPTLY AND INTERVENTION INITIATED QUICKLY TO MINIMIZE ASSOCIATED RISKS Goal Provider Goal - CHANGE IN GENERAL HEALTH STATUS WILL BE IDENTIFIED AND REPORTED TO PHYSICIAN FOR PROMPT INTERVENTION TO MINIMIZE ASSOCIATED RISKS THROUGHOUT CERTIFICATION PERIOD. Goal Provider Goal - PATIENT WILL COMPLY WITH MEDICATION WHEN NURSE ADMINISTERS. Goal Provider Goal - Goal Provider Goal - PATIENT WILL REMAIN SAFE WITHOUT DECOMPENSATION IN DEPRESSIVE CONDITION, WHILE MAINTAINING OPTIMAL LEVEL OF MENTAL HEALTH AND WELL BEING. Goal Provider Goal - PATIENT WILL REMAIN SAFE IN COMMUNITY WITHOUT EVIDENCE OF INJURY/HARM TO SELF OR OTHERS Goal Provider Goal - Goal Provider Goal - Reason for Visit INDEPENDENT IN THE COMMUNITY Encounters Start Date/Time End Date/Time Encounter Type Admission Type Attending [facility] Care Department Encounter ID Discharge Date Discharge Status Discharge Condition Discharge Reason Percent Goals Met 2022-02-20 00:00:00 2022-03-26 00:00:00 Outpatient CRAIG SANTANA [facility] [id number] 1028-08-16 00:00:00 DISCHARGE TO HOME OR SELF CARE INDEPENDEN T IN THE COMMUNITY MOVED OUT OF SERVICE AREA 83.33
--- OUTSIDE RECORDS SUMMARY | 2024-07-20 13:50 | XMS_ITS | Continuity of Care Document ---
Author Organization [facility] Address [address] [place] [address] Phone Care Team Providers Care Professor Of Sociology Name Role Phone Unavailable Unavailable Unavailable Advance Directives Directive Yes / No Effective Date File Name No Information Encounters Encounter Description Practice Location Reason(s) For Visit Diagnoses Date Provider Providers Copied on Encounter [facility], [address] [place] [address], [address], [place] tel:[phone] [facility] Behavioral Health NO SHOW (chief complaint) No Information 9 No Information Family History Family Member Type Diagnosis Age At Onset No Information Payers Payer name Insurance type Covered constitution party ID Authoriza tion(s) No Information Social History Type Description Quantity Date Captured Comments Sex Male Smoking Status No Information Sexual Orientation Lesbian, dia or homosexual Gender Identity Vnyzfc-qe-Ozma (FTM) /Transgender Male/Trans Man Chief Complaint And [...]
== END 2024-07-13 13:50 | disposition home or self-care (01) ==
PROVIDERS: Visit Provider Nurse Practitioner Family
DX: R14.0 Abdominal distension (gaseous) (principal); K59.01 Slow transit constipation; D12.6 Benign neoplasm of colon, unspecified; Z98.890 Other specified postprocedural states; K21.9 Gastro-esophageal reflux disease without esophagitis
CPT/HCPCS: 99214

== ENCOUNTER → 2024-07-13 12:34 | Outpatient (BNVA) | payer OTHER, SELFPAY | PROVIDERS: Visit Provider Nurse Practitioner Family | DX: K59.01 Slow transit constipation (principal); K21.9 Gastro-esophageal reflux disease without esophagitis; R10.9 Unspecified abdominal pain; D12.6 Benign neoplasm of colon, unspecified; Z98.890 Other specified postprocedural states | CPT/HCPCS: 99212 ==

== ENCOUNTER → 2024-08-18 14:47 | Outpatient (BNV) | payer OTHER, SELFPAY | PROVIDERS: Emergency Provider Emergency Medicine; PCP Internal Medicine; Visit Provider Internal Medicine | DX: R42 Dizziness and giddiness (principal); R00.1 Bradycardia, unspecified | CPT/HCPCS: 93010 ==

== ENCOUNTER → 2024-08-18 14:47 | Outpatient (BNV) | payer OTHER, SELFPAY | PROVIDERS: PCP Internal Medicine; Visit Provider Radiology Diagnostic Radiology | DX: R42 Dizziness and giddiness (principal); M25.511 Pain in right shoulder | CPT/HCPCS: 70450; 71045; 73030 ==

== ENCOUNTER 2024-09-06 12:22 | Outpatient (AMB) | payer OTHER, SELFPAY ==
--- NOTE | 2024-09-06 12:58 | HO.SPINEOV ---
Intake Visit Reasons: discuss sx Intake Note: Mr. Long is here today to Discuss Surgery. Boilermaker Loftsman Required: No Allergies No Known Allergies [No Known Allergies*] Allergy (Verified 09/06/24 13:36) Assessment & Plan Assessment & Plan (1) Spinal stenosis of lumbar region with neurogenic claudication: Code(s): M48.062 - Spinal stenosis, lumbar region with neurogenic claudication Category: Medical Plan Mrs Long comes into the office today for follow-up. About a year ago she was due to undergo a decompression of the lumbar spine at multiple levels but in the holding area the patient had some acute medical issue that was dealt with in the emergency room the day before and we were not aware so we had to cancel the operation. It has been a year so and the patient's left leg pain remains the same. It is quite intense she is very frustrated with not being able to get up and walk any distance. This visit was done with the help of analytical data miner [id number] sign language. She is able to stand up out of a chair and her strength is grossly full. I would like to order a new MRI just so we can be clear about the anatomy now that the old MRI is a year and a half or more old. Once that is completed we will see the patient back in the office. I also asked them to please bring a medication list. Total amount of time spent in this visit was 20 minutes in discussion of symptoms, lumbar imaging results and subsequent plan of care Martir Herrera MD,PhD [facility] Orders: Orders MR lumbar spine wo con Today M48.062 - Spinal stenosis, lumbar region with neurogenic claudication Coding Level of Care Code Est Pt Level 3 (36033) Diagnoses Spinal stenosis of lumbar region with neurogenic claudication M48.062
--- OUTSIDE RECORDS SUMMARY | 2024-09-06 17:10 | XMS_ITS | Encounter Summary ---
Author Organization [employer] Address [address] [place] [address] Care Team Providers Care Director Corporate Security Name Role Phone Ligia Becerra MD Primary Care Provider [phone] Jair Pro MD Unavailable [phone] Tim Herrera Unavailable [phone] Reason for Visit * Reason Onset Date Comments Durable Medical Equipment 06/02/2024 Encounter Details Date Type Department Care Team (Late st Contact Info) Description 06/02/2024 Telephone [facility] MEDICINE [address] [place], [place] [phone] Ligia Becerra MD [address] [place], [place] [phone] Durable Medical Equipment Social History Tobacco Use Types Packs/Day Years Used Date Smoking Tobacco: Never Passive Smoke Exposure: Never Smokeless Tobacco: Never Alcohol Use Standard Drinks/Week Comments Never 0 (1 standard drink = 0.6 oz pur e alcohol) Alcohol Answer Date Recorded Frequency of Alcohol Consumption Not on file 05/19/2024 Average Number of Drinks Not on file 024 Frequency of Binge Drinking Not on file 04/2024 Score 0 05/19/2024 Depression Answer Date Recorded Patient Health Questionnaire-9 Score 3 03/18/2024 Patient Health Questionnaire-9 Score 3 03/18/2024 Last PHQ-9: Questionnaire Data Not on file 0 03/18/2024 Housing Stability Answer Date Recorded What is your housing situation today? I have jodie hernandez 05/26/[address] you li ve. Do you have problems with any of the following? None of the above 05/26/2023 Food Insecurity Answer Date Recorded Within the past 12 months, y ou worried that your food would run out before you got money to buy more: Never True 05/26/2023 Within the past 12 months,th e food you bought just didn't last and you didn't have enough money to get more: Never True Transportation Answer Date Recorded In the past 12 months, has l ack of transportation kept you from medical appts, meetings, work or from getting things needed for daily living? No 05/26/2023 Utilities Answer Date Recorded In the past 12 months, has t he electric, gas, oil or water company threatened to shut off services in your home? No 05/26/2023 Depression Answer Date Recorded Patient Health Questionnaire-2 Score 2 03/18/2024 Sex and Gender Information Value Date Recorded Sex Assigned at Male 06/10/2022 10:16 AM EDT Legal Sex Male 10:16 AM EDT Gender Identity Female 07/25/2022 12:03 PM EST Sexual Orientation Choose not to disclose 2021 10:16 AM EDT documented as of this encounter Miscellaneous Notes * Telephone Encounter - Keven Brandt - 06/02/2024 9:59 AM EDT Tc from pt calling in regards to scooter stating this has been discussed with pcp before and it needs a PA. Pt further stated they would like scooter because due to shoulder pain it is increasingly difficult to use walker. If any questions you can contact pt at [phone]. documented in this encounter Plan of Treatment Upcoming Encounters Date Type Department Care Team (Late st Contact Info) Description 09/20/2024 9:45 AM EST Office Visit [facility] MEDICINE [address] [place], [place] [phone] Ligia Becerra MD [address] [place], [place] [phone] documented as of this encounter Visit Diagnoses Not on filedocumented in this encounter Additional Health Concerns Assessment Noted Time PHQ-9 Depression Total Score: 3 03/18/20 24 11:59 AM EDT documented as of this encounter Care Teams Director Corporate Security Relationship Specialty Start Date End Date Ligia Becerra MD [address] [place] [address] PCP - General Family Medicine 07/22/22 Jair Pro MD [address] [place] [address] Urology 07/24/24 Tim Herrera [address] [place] [address] Neurosurgery 07/24/24 documented as of this encounter
--- OUTSIDE RECORDS SUMMARY | 2024-09-06 17:10 | XMS_ITS | Encounter Summary ---
Author Organization [employer] Address [address] 7t [place] [address] Care Team Providers Care Stave Cutter Name Role Phone Ligia Becerra MD Primary Care Provider [phone] Jair Pro MD Unavailable [phone] Tim Herrera Unavailable [phone] Reason for Visit * Reason Onset Date Comments c/b requested 03/24/2023 Encounter Details Date Type Department Care Team (Late st Contact Info) Description 03/24/2023 Telephone [facility] MEDICINE [address] [place], [place] [phone] Ligia Becerra MD [address] [place] [address] c/b requested Social History Tobacco Use Types Packs/Day Years Used Date Smoking Tobacco: Never Smokeless Tobacco: Never Alcohol Use Standard [...] encounter Miscellaneous Notes * Telephone Encounter - Krista Rm - 03/24/2023 2:28 PM EDT Tc from patient returning call back, regarding message on CHW encounter. Septic Pump Truck Driver unable to re open encounter. Please only call [phone]. * Telephone Encounter - Presley Sanchez - 03/24/2023 12:28 PM EDT Tc from pt requesting a call back from CM. Please contact at [phone] ASL documented in this encounter Plan of Treatment Upcoming Encounters Date Type Department Care Team (Late st Contact Info) Description 09/20/2024 9:45 AM EST Office Visit [address] [address] Ligia Becerra MD [address] [place] [address] documented as of this encounter Visit Diagnoses Not on filedocumented in this encounter Additional Health Concerns Assessment Noted Time PHQ-9 Depression Total Score: 18 023 3:56 PM EDT documented as of this encounter Care Teams Stave Cutter Relationship Specialty Start Date End Date Ligia Becerra MD [address] [place] [address] PCP - General Family Medicine 07/22/22 Jair Pro MD [address] [place] [address] Urology 07/24/24 Tim Herrera [address] [place] [address] Neurosurgery 07/24/24 documented as of this encounter
--- OUTSIDE RECORDS SUMMARY | 2024-09-06 17:10 | XMS_ITS | Encounter Summary ---
Author Organization [employer] Address [address] [place] [address] Care Team Providers Care Special Assets Officer Name Role Phone Ligia Becerra MD Primary Care Provider [phone] Jair Pro MD Unavailable [phone] Tim Herrera Unavailable [phone] Reason for Visit * Reason Onset Date Comments Nurse Triage 08/19/2024 Encounter Details Date Type Department Care Team (Late st Contact Info) Description 08/19/2024 Telephone [facility] MEDICINE [address] [place] [phone] Ligia Becerra MD [address] [place], [place] [phone] Nurse Triage Social History Tobacco Use Types Packs/Day Years [...] encounter Miscellaneous Notes * Telephone Encounter - Rena Serrano RN - 08/19/2024 2:45 PM EST Call to Ashley Angeles for triage below with ASL speech language pathologist assistant. Patient reports havingchest pain and arm pain x 2 days. Pt having pain that is diffuse over chest intermittent, left arm and left flank pain. No SOB, LUQUE or dizziness. Denies any cough. No urinary sx. Pt unable to come into ur walk in center. [facility]. Confirmed demographics and allergies. Will setreminder for status check by triage tomorrow. Protocol Used: Chest Pain (Adult) Protocol-Based Disposition: Go to ED/UCC Now (or to Office with PCP Approval) Positive Triage Question: * Chest pain or angina comes and goes and is happening more often (increasing in frequency) or getting worse (increasing in severity) (Exception: Chest pains that last only a few seconds.) * All higher-acuity triage questions were negative Care Advice Discussed: * Reasons To Call Back - Chest pain increases in frequency, duration or severity - Chest pain lasts over 5 minutes - You become worse * Telephone Encounter - Shannon Ruedaiago - 08/19/2024 2:40 PM EST Tc from pt and with the help of ASL interprete Symptom: Arm Pain - Not From Injury Outcome: Transfer to a nurse or provider NOW! Reason: Chest pain now The caller accepted this outcome. documented in this encounter Plan of Treatment Upcoming Encounters Date Type Department Care Team (Late st Contact Info) Description 09/20/2024 9:45 AM EST Office Visit [facility] MEDICINE [address] [place] [address] Ligia Becerra MD [address] [place] [address] documented as of this encounter Visit Diagnoses Not on filedocumented in this encounter Additional Health Concerns Assessment Noted Time PHQ-9 Depression Total Score: 3 03/18/20 24 11:59 AM EDT documented as of this encounter Care Teams Special Assets Officer Relationship Specialty Start Date End Date Ligia Becerra MD [address] [place] [address] PCP - General Family Medicine 07/22/22 Jair Pro MD [address] [place] [address] Urology 07/24/24 Tim Herrera [address] [place] [address] Neurosurgery 07/24/24 documented as of this encounter
--- OUTSIDE RECORDS SUMMARY | 2024-09-06 17:10 | XMS_ITS | Encounter Summary ---
Author Organization [employer] Address [address] [place] [address] Care Team Providers Care Hose Suspender Cutter Name Role Phone Ligia Becerra MD Primary Care Provider [phone] Jair Pro MD Unavailable [phone] Tim Herrera Unavailable [phone] Reason for Visit * Reason Onset Date Comments PT1 10/06/2023 Encounter Details Date Type Department Care Team (Late st Contact Info) Description 10/06/2023 Telephone [facility] MEDICINE [address] [place], [place] [phone] Ligia Becerra MD [address] [place], [place] [phone] PT1 Social History Tobacco Use Types Packs/Day Years Used Date Smoking Tobacco: Never Passive Smoke Exposure: Never Smokeless Tobacco: Never Alcohol Use Standard Drinks/Week Comments Never 0 (1 standard drink = 0.6 oz pur e alcohol) Depression Answer Date Recorded Patient Health Questionnaire-9 Score 18 03/20/2023 Housing Stability Answer Date Recorded What is [...] Answer Date Recorded Patient Health Questionnaire-2 Score 6 03/20/2023 Sex and Gender Information Value Date Recorded Sex Assigned at Male 06/10/2022 10:16 AM EDT Legal Sex Male 10:16 AM EDT Gender Identity Female 07/25/2022 12:03 PM EST Sexual Orientation Choose not to disclose 2021 10:16 AM EDT documented as of this encounter Miscellaneous Notes * Telephone Encounter - Carole Tinajero - 10/06/2023 11:07 AM EST PT1 needed Date: 10/09/23 Time: 3 PM Visits: 5 per month Address: [address] [place] [address] Facility: [facility] Wheel Chair: no, walker Solid Waste Engineer Needed: yes Date: n/a Time: n/a Visits: 5 per month Address: [address] [place] [address] Facility: [facility] Wheel Chair: No, walker Solid Waste Engineer Needed: yes documented in this encounter Plan of Treatment Upcoming Encounters Date Type Department Care Team ([facility] Contact Info) Description 09/20/2024 9:45 AM EST Office Visit [facility] MEDICINE [address] [place] [address] Ligia Becerra MD [address] [place] [address] documented as of this encounter Visit Diagnoses Not on filedocumented in this encounter Additional Health Concerns Assessment Noted Time PHQ-9 Depression Total Score: 18 023 3:56 PM EDT documented as of this encounter Care Teams Hose Suspender Cutter Relationship Specialty Start Date End Date Ligia Becerra MD [address] [place] [address] PCP - General Family Medicine 07/22/22 Jair Pro MD [address] [place] [address] Urology 07/24/24 Tim Herrera [address] [place] [address] Neurosurgery 07/24/24 documented as of this encounter
--- OUTSIDE RECORDS SUMMARY | 2024-09-06 17:10 | XMS_ITS | Encounter Summary ---
Author Organization [employer] Address [address] [place] [address] Care Team Providers Care Crutcher Helper Name Role Phone Ligia Becerra MD Primary Care Provider [phone] Jair Pro MD Unavailable [phone] Tim Herrera Unavailable [phone] Reason for Visit * Reason Onset Date Comments ER Follow-up 10/14/2023 Encounter Details Date Type Department Care Team (Late st Contact Info) Description 10/14/2023 Telephone [facility] MEDICINE [address] [place], [place] [phone] Ligia Becerra MD [address] [place], [place] [phone] ER Follow-up Social History Tobacco Use Types Packs/Day Years Used Date Smoking Tobacco: Never Passive Smoke Exposure: Never Smokeless Tobacco: Never Alcohol Use Standard Drinks/Week Comments Never 0 (1 standard drink = 0.6 oz pur e alcohol) Depression Answer Date Recorded Patient Health Questionnaire-9 Score 18 03/20/2023 Housing Stability Answer Date Recorded What is your housing situation today? I have jodienicholas hernandez 05/26/[address] you [...] encounter Miscellaneous Notes * Telephone Encounter - Renee Cuevas RN - 10/15/2023 9:52 AM EST TC from Pt calling to inform went to [facility] yesterday 10/13/23 . Informs was prescribed medication but was sent to the incorrect pharmacy and pt does not have transportation. Pt does not know name ofmed . Please call pt to clarify . Note below taken from [facility] discharge summery medication in question is oxycodone, will send message to PCP to advise. Reevaluation #3: 10/14/23 14:55 received phone call from patient via turn machine operator. Patient stating that oxycodone prescription was sent to incorrect pharmacy. Upon review, appears prescription was rejected. Initial order canceled. New prescription for 4 tabs of oxycodone 5 mg sent to [facility] in [place]. * Telephone Encounter - Yareli Billingsley - 10/14/2023 12:41 PM EST TC from Pt calling to inform went to [facility] yesterday 10/13/23 . Informs was prescribed medication but was sent to the incorrect pharmacy and pt does not have transportation. Pt does not know name ofmed . Please call pt to clarify . documented in this encounter Plan of Treatment Upcoming Encounters Date Type Department Care Team (Late st Contact Info) Description 09/20/2024 9:45 AM EST Office Visit [facility] MEDICINE [address] [place] [address] iLgia Becerra MD [address] [place] [address] documented as of this encounter Visit Diagnoses Not on filedocumented in this encounter Additional Health Concerns Assessment Noted Time PHQ-9 Depression Total Score: 18 023 3:56 PM EDT documented as of this encounter Care Teams Crutcher Helper Relationship Specialty Start Date End Date Ligia Becerra MD [address] [place] [address] PCP - General Family Medicine 07/22/22 Jair Pro MD [address] [place] [address] Urology 07/24/24 Tim Herrera [address] [place] [address] Neurosurgery 07/24/24 documented as of this encounter
--- OUTSIDE RECORDS SUMMARY | 2024-09-06 17:10 | XMS_ITS | Encounter Summary ---
Author Organization [employer] Address [address] [place] [address] Care Team Providers Care Accountancy Professor Name Role Phone Ligia Becerra MD Primary Care Provider [phone] Jair Pro MD Unavailable [phone] Tim Herrera Unavailable [phone] Encounter Details Date Type Department Care Team (Late st Contact Info) Description 03/18/2023 Telephone [facility] MEDICINE [address] [place], [place] [phone] Ligia Becerra MD [address] [place], [place] [phone] Social History Tobacco Use Types Packs/Day Years Used Date Smoking Tobacco: Never Smokeless Tobacco: Never Alcohol Use Standard Drinks/Week Comments Never 0 (1 standard drink = 0.6 oz pur e alcohol) Depression Answer Date Recorded Patient Health Questionnaire-9 Score 18 03/20/2023 Depression Answer Date Recorded Patient Health Questionnaire-2 Score 6 03/20/2023 Sex and Gender Information Value Date Recorded Sex Assigned at Male 06/10/2022 10:16 AM EDT Legal Sex Male 10:16 AM EDT Gender Identity Female 07/25/2022 12:03 PM EST Sexual Orientation Choose not to disclose 2021 10:16 AM EDT documented as of this encounter Miscellaneous Notes * Telephone Encounter - Carole Tinajero - 03/18/2023 4:42 PM EDT Tc from states he spoke with a health center manager and was given the number [phone]. Center Medical Director did not seeany documentation. Please contact pt at [phone] documented in this encounter Plan of Treatment Upcoming Encounters Date Type Department Care Team (Late st Contact Info) Description 09/20/2024 9:45 AM EST Office Visit [facility] MEDICINE [address] [place] [address] Ligia Becerra MD [address] [place] [address] documented as of this encounter Visit Diagnoses Not on filedocumented in this encounter Care Teams Accountancy Professor Relationship Specialty Start Date End Date Ligia Becerra MD [address] [place] [address] PCP - General Family Medicine 07/22/22 Jair Pro MD [address] [place] [address] Urology 07/24/24 Tim Herrera [address] [place] [address] Neurosurgery 07/24/24 documented as of this encounter
--- OUTSIDE RECORDS SUMMARY | 2024-09-06 17:10 | XMS_ITS | Encounter Summary ---
Author Organization [employer] Address [address] [place] [address] Care Team Providers Care Per Diem Nurse Name Role Phone Ligia Becerra MD Primary Care Provider [phone] Jair Pro MD Unavailable [phone] Tim Herrera Unavailable [phone] Encounter Details Date Type Department Care Team (Late st Contact Info) Description 02/04/2023 Abstract [facility] MEDICINE [address] [place], [place] [phone] Ligia Becerra MD [address] [place], [place] [phone] Social History Tobacco Use Types Packs/Day Years Used Date Smoking Tobacco: Never Smokeless Tobacco: Never Alcohol Use Standard Drinks/Week Comments Never 0 (1 standard drink = 0.6 oz pur e alcohol) PHQ-2 Answer Date Recorded Patient Health Questionnaire-2 Score 2 09/17/2022 Sex and Gender Information Value Date Recorded Sex Assigned at Male 06/10/2022 10:16 AM EDT Legal Sex Male 10:16 AM EDT Gender Identity Female 07/25/2022 12:03 PM EST Sexual Orientation Choose not to disclose 2021 10:16 AM EDT COVID-19 Exposure Response Date Recorded In the last 10 days, have yo u been in contact with someone who was confirmed or suspected to have Coronavirus/COVID-19? No / Unsure 02/05/2023 10:47 AM EDT documented as of this encounter Plan of Treatment Upcoming Encounters Date Type Department Care Team (Late st Contact Info) Description 09/20/2024 9:45 AM EST Office Visit [facility] MEDICINE [address] [place] [address] Ligia Becerra MD [address] [place] [address] documented as of this encounter Visit Diagnoses Not on filedocumented in this encounter Care Teams Per Diem Nurse Relationship Specialty Start Date End Date Ligia Becerra MD [address] [place] [address] PCP - General Family Medicine 07/22/22 Jair Pro MD [address] [place] [address] Urology 07/24/24 Tim Herrera [address] [place] [address] Neurosurgery 07/24/24 documented as of this encounter
--- OUTSIDE RECORDS SUMMARY | 2024-09-06 17:10 | XMS_ITS | Encounter Summary ---
Author Organization [employer] Address [address] [facility] [address] [facility] [address] [place] [address] Care Team Providers Care Practice Coordinator Name Role Phone Ligia Becerra MD Primary Care Provider [phone]- [phone] Jair Pro MD Unavailable [phone] Tim Herrera Unavailable [phone] Reason for Visit * Reason Onset Date Comments September Recall 08/12/2024 Encounter Details Date Type Department Care Team (Late st Contact Info) Description 08/12/2024 Telephone [facility] MED & PEDS [address] [place], [place] [phone] Gianna Rodriguez[place], [place] September Recall Social History Tobacco Use Types Packs/Day Years [...] encounter Miscellaneous Notes * Telephone Encounter - Mae Delgado RN - 08/13/2024 9:59 AM EST KALEB reached back out second time to pt to reschedule appt. * Telephone Encounter - Gerson White - 08/12/2024 3:49 PM EST Pt returning call with general utility worker requesting a call back to schedule recall appt. * Telephone Encounter - Nasra Rodriguez MA - 08/12/2024 2:40 PM EST Lvm with general utility worker for pt to call back and schedule follow up appt in Sep. Recall letter mailed. documented in this encounter Plan of Treatment Upcoming Encounters Date Type Department Care Team (Late st Contact Info) Description 09/20/2024 9:45 AM EST Office Visit [facility] MEDICINE [address] [place] [address] Ligia Becerra MD [address] [place] [address] documented as of this encounter Visit Diagnoses Not on filedocumented in this encounter Additional Health Concerns Assessment Noted Time PHQ-9 Depression Total Score: 3 03/18/20 24 11:59 AM EDT documented as of this encounter Care Teams Practice Coordinator Relationship Specialty Start Date End Date Ligia Becerra MD [address] [place] [address] PCP - General Family Medicine 07/22/22 Jair Pro MD [address] [place] [address] Urology 07/24/24 Tim Herrera [address] [place] [address] Neurosurgery 07/24/24 documented as of this encounter
--- OUTSIDE RECORDS SUMMARY | 2024-09-06 17:10 | XMS_ITS | Encounter Summary ---
Author Organization [employer] Address [address] [facility] [address] 7t [place] [address] Care Team Providers Care Waist Pleater Name Role Phone Ligia Becerra MD Primary Care Provider [phone]- [phone] Jair Pro MD Unavailable [phone] Tim Herrera Unavailable [phone] Reason for Visit * Reason Onset Date Comments Nurse Triage 02/06/2024 Encounter Details Date Type Department Care Team (Late st Contact Info) Description 02/06/2024 Telephone [facility] MEDICINE [address] [place] [phone] Ligia Becerra MD [address] [place], [place] [phone] Nurse Triage Social History Tobacco Use Types [...] encounter Miscellaneous Notes * Telephone Encounter - Liberty Noel RN - 02/06/2024 11:27 AM EDT Date: 02/05/24 Hospital: [facility] Seen for: UTI, off balance. Pt states they are having leg pain. Called pt via medical technologist. Pt states that she went to [facility] ED for bladder retention and abdominal bloating on 02/05/24. Pt. States she is still feeling bloated and feels like she has a full bladder. Pt. Had a catheter placed yesterday with a Ubag and the urine bag is only half full today according to pt. (250cc). The color of her urine is light yellow-no blood in urine noticeable. Pt. States she is drinking plenty of water but still feels bloated and feels like her bladder is full. No fever, no blood in urine bag. No nausea or vomiting. I advised pt. To go back to ED but pt. States that they told her to be seen at her Dr's office today. I advised that with her feeling bloated and feeling that her bladder is full that she should go back to ED. Pt. Declines ED. Pt. Is ASL. I gave appt. For today at 1pm with Murial Appram BOTTOM PRECIPITATOR OPERATOR but, pt. May need to be sent to ED based on provider assessment. Will forward this note to provider and preceptor to give an FYI for upcoming 1pm appt. Today 02/06/24. Protocol Used: Urinary Catheter (e.g., Henry) Symptoms and Questions (Adult) Protocol-Based Disposition: See in Office or Video Visit Today Positive Triage Questions: * No urine in bag for > 4 hours and catheter is not kinked * Patient wants to be seen * All higher-acuity triage questions were negative Care Advice Discussed: * Keep Drainage Bag Below Bladder * Check and Secure Tubing * Drink Plenty of Liquids * Drink Plenty of Fluids - Extra Notes and Warnings * Telephone Encounter - Presley Sanchez - 02/06/2024 10:46 AM EDT Patient calling to report ED visit on : Date: 02/05/24 Hospital: [facility] Seen for: UTI, off balance. Pt states they are having leg pain. Patient advised will forward to team nurse for follow up. Please contact at [phone] ASL documented in this encounter Plan of Treatment Upcoming Encounters Date Type Department Care Team (Late st Contact Info) Description 09/20/2024 9:45 AM EST Office Visit [facility] MEDICINE [address] [place] [address] Ligia Becerra MD [address] [place] [address] documented as of this encounter Visit Diagnoses Not on filedocumented in this encounter Additional Health Concerns Assessment Noted Time PHQ-9 Depression Total Score: 18 023 3:56 PM EDT documented as of this encounter Care Teams Waist Pleater Relationship Specialty Start Date End Date Ligia Becerra MD [address] [place] [address] PCP - General Family Medicine 07/22/22 Jair Pro MD [address] [place] [address] Urology 07/24/24 Tim Herrera [address] [place] [address] Neurosurgery 07/24/24 documented as of this encounter
--- OUTSIDE RECORDS SUMMARY | 2024-09-06 17:10 | XMS_ITS | Encounter Summary ---
Author Organization [employer] Address [address] 7[address] [place] [address] Care Team Providers Care Gas Meter Installer Name Role Phone Ligia Becerra MD Primary Care Provider [phone] Jair Pro MD Unavailable Tim Herrera Unavailable [phone] Reason for Visit * Reason Onset Date Comments September Recall 08/13/2024 Encounter Details Date Type Department Care Team (Late st Contact Info) Description 08/13/2024 Telephone [facility] MED & PEDS [address] [place], [place] [phone] Gianna Rodriguez[place], [place] September Recall Social History Tobacco Use [...] encounter Miscellaneous Notes * Telephone Encounter - Nasra Rodriguez MA - 08/13/2024 10:02 AM EST Called pt and with the help of packaging tech I was able to schedule f/u appt for 09/20/24 @ 9:45 am. Pt stated that she needed transportation to and from clinic and I explained that we would not be able to help. I also explained that she needed to make arrangements with her case finisher Hari and ptunderstood. Reminder letter mailed. documented in this encounter Plan of Treatment Upcoming Encounters Date Type Department Care Team (Late st Contact Info) Description 09/20/2024 9:45 AM EST Office Visit [facility] MEDICINE [address] [place] [address] Ligia Becerra MD [address] [place], [place] [phone] documented as of this encounter Visit Diagnoses Not on filedocumented in this encounter Additional Health Concerns Assessment Noted Time PHQ-9 Depression Total Score: 3 03/18/20 24 11:59 AM EDT documented as of this encounter Care Teams Gas Meter Installer Relationship Specialty Start Date End Date Ligia Becerra MD [address] [place] [address] PCP - General Family Medicine 07/22/22 Jair Pro MD [address] [place] [address] Urology 07/24/24 Tim Herrera [address] [place] [address] Neurosurgery 07/24/24 documented as of this encounter
--- OUTSIDE RECORDS SUMMARY | 2024-09-06 17:10 | XMS_ITS | Patient Health Record ---
Author Organization [facility] enter Address [address] [place] [address] Care Team Providers Care Sample Body Builder Name Role Phone Elisabeth Yost Primary Care Provider Allergies No Known Allergies Reason For Referral No Information Medications Medication SIG (Take, Route, Frequency, Duration) Notes Start Date End Date Status Rollator - external daily for 999 days 365 days, walker with seat 11/02/2020 Active Peridex 0.12 % Swish/spit 15ml for 30 seconds. Expectorate, do not rinse. Mouth BID for 30 days 01/31/2022 Active Lidocaine 5 % as directed Externally Once a day for 30 days 11/02/2020 Active Escitalopram Oxalate 10 MG 1 tablet Orally Once a day Active Ibuprofen 600 MG 1 tablet with food or milk as needed Orally Three times a day for 30 days 11/09/2020 Active Immunizations Vaccine Route Administration Date Status Comme nts COVID-19 Vaccine(Moderna) 1st dose IM Intramuscular 12/08/2020 Administered COVID-19 Vaccine(Moderna) 2nd dose IM Intramuscular 02/26/2021 Administered Social History Tobacco Use: Social History Observation Description Date Details (start date - stop date) Never Smoker NA - NA Sex Assigned At : Social History Observation Description Sex Assigned At Male * Tobacco Use/Smoking assessment Question Answer Notes Are you a nonsmoker Alcohol Screen (Audit-C) Question Answer Notes Did you have a drink containing alcohol in the p ast year? No Points 0 Interpretation Negative SBIRT Question Answer Notes Patient refused/declined SBIRT screening at this time? No Problems Problem Type SNOMED Code ICD Code Onset Dates Problem Status W/U Status Risk Notes Problem 36517726 Other chronic pain (G89.29) Active confirmed Problem 20258107 Presbyopia (H52.4) Active confirmed Problem 86979811 Vitamin D deficiency (E55.9) Active confirmed Problem 17926408 Periodontitis (K05.30) Active confirmed Problem Gingivitis (98784641) Gingivitis (K05.10) Active confirmed Problem 038992406 Primary osteoarthritis of both hips (M16.0) Active confirmed Problem 1052001813174906 Bilateral hip joint arthritis (M16.0) Active confirmed Problem 6960785 Spondylosis (M47.9) Active confirmed Problem 61347707 Unsteady gait when walking (R26.81) Active confirmed Plan Of Treatment Pending Test Test Name Order Date URINALYSIS, COMPLETE 10/19/2020 Insurance Providers Payer Name Payer Address Payer Phone Subscriber Number Group Number Insured Name Patient Relationship to Insured Coverage Start Date Coverage End Date [employer] Medicare Plans [address] [place] [address] [id number] Jacob Long Self - patient is the insured [facility] SECONDARY [address] [place], [place] [phone] [id number] Ethan Ajcob Self - patient is the insured Dental [employer] Medicare Advantage - [facility] [address] [place] [address] [phone] [id number] Ethan Jacob Self - patient is the insured 2 DENTAL Medicaid SECONDARY [address] [place] [address] [phone] [id number] EthanGibsonJacob Self - patient is the insured Medical (General) History Medical History History ICD Code anxiety Surgical History Surgery Date(Month/Year) spinal surgery 2019 Hospitalization History Reason Date(Month/Year) see above
--- OUTSIDE RECORDS SUMMARY | 2024-09-06 17:10 | XMS_ITS | Encounter Summary ---
Author Organization [employer] Address [address] 7[address] [place] [address] Care Team Providers Care Bun Panner Name Role Phone Ligia Becerra MD Primary Care Provider [phone] Jair Pro MD Unavailable [phone] Tim Herrera Unavailable Reason for Visit * Reason Onset Date Comments Nurse Triage 10/08/2023 Encounter Details Date Type Department Care Team (Late st Contact Info) Description 10/08/2023 Telephone [facility] MEDICINE [address] [place], [place] [phone] Ligia Becerra MD [address] [place], [place] [phone] Nurse Triage Social History Tobacco Use Types [...] Telephone Encounter - Rena Serrano RN - 10/08/2023 3:07 PM EST Call to Ashley Angeles via [employer] video dental technology advisor. Pt reports having back pain that is chronic. Per pt is supposed to have a procedure in November. Pt using acetaminophen with mild relief. Per pt pain has not improved. Pt would like to see PCP. No open schedule for PCP at this time. No urinary sx reported. No leg numbness. Pt advised will send to PCP to review and further advise team of follow up with POC. Reviewed [facility] availability, Reviewed operating hours and that wait times vary. Reviewed home care advise, ER precautions and reasons to call back. Protocol Used: Back Pain (Adult) Protocol-Based Disposition: See in Office or Video Visit within 2 Weeks Override (Final) Disposition: Discuss with PCP and Callback by Nurse Today Override Reason: Desired specific provider Video visit offer not recorded Positive Triage Question: * Back pain is a chronic symptom (recurrent or ongoing AND lasting > 4 weeks) * All higher-acuity triage questions were negative Care Advice Discussed: * Reassurance and Education - Back Pain * Reasons To Call Back - Numbness or weakness occurs, or bowel/bladder problems - You become worse * Telephone Encounter - Ana Schwartz - 10/08/2023 3:03 PM EST Symptom: Back Pain - Not From Injury Outcome: Schedule an appointment to be seen within 3 days Reason: Caller denied all higher acuity questions The caller accepted this outcome documented in this encounter Plan of Treatment Upcoming Encounters Date Type Department Care Team (Late st Contact Info) Description 09/20/2024 9:45 AM EST Office Visit [facility] MEDICINE [address] [place] [address] Ligia Becerra MD [address] [place] [address] documented as of this encounter Visit Diagnoses Not on filedocumented in this encounter Additional Health Concerns Assessment Noted Time PHQ-9 Depression Total Score: 18 023 3:56 PM EDT documented as of this encounter Care Teams Bun Panner Relationship Specialty Start Date End Date Ligia Becerra MD [address] [place] [address] PCP - General Family Medicine 07/22/22 Jair Pro MD [address] [place] [address] Urology 07/24/24 Tim Herrera [address] [place] [address] Neurosurgery 07/24/24 documented as of this encounter
--- OUTSIDE RECORDS SUMMARY | 2024-09-06 17:10 | XMS_ITS | Continuity of Care Document ---
Author Organization [facility] Address [address] [place] [address] Phone Care Team Providers Care Manager Of Applications Development Name Role Phone Admin, Support Unavailable Unavailable Advance Directives Directive Yes / No Effective Date File Name No Information Encounters Encounter Description Practice Location Reason(s) For Visit Diagnoses Date Provider [facility], [address] [place] [address], [facility], tel:[phone] PBC / Admin Use No Information 2019 Admin Support. [address] [place], [place], [facility]. tel:[phone] Family History Family Member Type Diagnosis Age At Onset No Information Payers Payer name Insurance type Covered republican ID Authoriza tion(s) No Information Social History Type Description Quantity Date Captured Comments Sex Male Smoking Status No Information Sexual Orientation Choose not to disclose Gender Identity Male Chief Complaint And Reason For Visit No Information History Of Present Illness Encounter Date Complaint History Of Prese nt Illness No Information Instructions Date Instruction Additional Infor mation No Information Assessments Type Assessment Date No Information
--- OUTSIDE RECORDS SUMMARY | 2024-09-06 17:11 | XMS_ITS | Encounter Summary ---
Author Organization [employer] Address [address] 7[address] [place] [address] Care Team Providers Care Clinical Geneticist Name Role Phone Ligia Becerra MD Primary Care Provider [phone]- [phone] Jair Pro MD Unavailable Tim Herrera Unavailable [phone] Reason for Visit * Reason Onset Date Comments Med Refill 07/18/2023 Encounter Details Date Type Department Care Team (Late st Contact Info) Description 07/18/2023 Telephone [facility] MEDICINE [address] [place], [place] [phone] Ligia Becerra MD [address] [place], [place] [phone] Med Refill Social History Tobacco Use Types Packs/Day Years Used Date Smoking Tobacco: Never Passive Smoke Exposure: Never Smokeless Tobacco: Never Alcohol Use Standard Drinks/Week Comments Never 0 (1 standard drink = 0.6 oz pur e alcohol) Depression Answer Date Recorded Patient Health Questionnaire-9 Score 18 03/20/2023 Housing Stability Answer Date Recorded What is your housing situation today? I have jodie david 05/26/[address] you li [...] encounter Miscellaneous Notes * Telephone Encounter - Yajaira Tolbert LPN - 07/18/2023 10:29 AM EST Medication pended to provider. * Telephone Encounter - Don Cerrato - 07/18/2023 10:27 AM EST Tc from pt requesting med refill on cetirizine (ZyrTEC) 10 MG tablet acetaminophen (Tylenol Extra Strength) 500 MG tablet Please sent to [facility] Pharm[facility] documented in this encounter Plan of Treatment Upcoming Encounters Date Type Department Care Team (Late st Contact Info) Description 09/20/2024 9:45 AM EST Office Visit [facility] MEDICINE [address] [place] [address] Ligia Becerra MD [address] [place] [address] documented as of this encounter Visit Diagnoses Not on filedocumented in this encounter Additional Health Concerns Assessment Noted Time PHQ-9 Depression Total Score: 18 023 3:56 PM EDT documented as of this encounter Care Teams Clinical Geneticist Relationship Specialty Start Date End Date Mariam, MD Ligia [address] [place] [address] PCP - General Family Medicine 07/22/22 Jair Pro MD [address] [place] [address] Urology 07/24/24 Tim Herrera [address] [place] [address] Neurosurgery 07/24/24 documented as of this encounter
--- OUTSIDE RECORDS SUMMARY | 2024-09-06 17:11 | XMS_ITS | Encounter Summary ---
Author Organization [email or web address] Address [address] [facility] [address]t [place] [address] Care Team Providers Care Asphalt Paving Superintendent Name Role Phone Ligia Becerra MD Primary Care Provider [phone] Jair Pro MD Unavailable [phone] Tim Herrera Unavailable Reason for Visit * Reason Onset Date Comments Nurse Triage 09/15/2023 Encounter Details Date Type Department Care Team (Late st Contact Info) Description 09/15/2023 Telephone [facility] [address] [place], [place] [phone] Ligia Becerra MD [address] [place], [place] [phone] Nurse Triage Social History Tobacco Use Types [...] * Telephone Encounter - Carole Tinajero - 09/15/2023 11:27 AM EST Symptom: Back Pain - Not From Injury Outcome: Schedule an appointment to be seen within 3 days Reason: PCP knows but states back pain is getting worse and radiating to the front. The caller accepted this outcome Please contact pt at [phone] documented in this encounter Plan of Treatment Upcoming Encounters Date Type Department Care Team (Late st Contact Info) Description 09/20/2024 9:45 AM EST Office Visit [facility] [address] [place] [address] Ligia Becerra MD [address] [place] [address] documented as of this encounter Visit Diagnoses Not on filedocumented in this encounter Additional Health Concerns Assessment Noted Time PHQ-9 Depression Total Score: 18 023 3:56 PM EDT documented as of this encounter Care Teams Asphalt Paving Superintendent Relationship Specialty Start Date End Date Ligia Becerra MD [address] [place] [address] PCP - General Family Medicine 07/22/22 Jair Pro MD [address] [place] [address] Urology 07/24/24 Tim Herrera [address] [place] [address] Neurosurgery 07/24/24 documented as of this encounter
--- OUTSIDE RECORDS SUMMARY | 2024-09-06 17:11 | XMS_ITS | Encounter Summary ---
Author Organization [employer] Address [address] [place] [address] Care Team Providers Care Graphic Technician Name Role Phone Ligia Becerra MD Primary Care Provider [phone]- [phone] Jair Pro MD Unavailable [phone] Tim Herrera Unavailable [phone] Reason for Visit * Reason Onset Date Comments Requesting A Phone Call 09/18/2022 Encounter Details Date Type Department Care Team (Late st Contact Info) Description 09/18/[address] [facility] MEDICINE [address] [place] [phone] Ligia Becerra MD [address] [place] [address] Requesting A Phone Call Social History Tobacco Use Types Packs/Day Years [...] suspected to have Coronavirus/COVID-19? No / Unsure 09/17/2022 2:58 PM EST documented as of this encounter Miscellaneous Notes * Telephone Encounter - Don Cerrato - 09/18/2022 9:18 AM EST Tc from pt requesting a Phone call with provider. Pt was not specific in why. Please contact pt at [phone] documented in this encounter Plan of Treatment Upcoming Encounters Date Type Department Care Team (Late st Contact Info) Description 09/20/2024 9:45 AM EST Office Visit [facility] MEDICINE [address] [place] [address] Ligia Becerra MD [address] [place] [address] documented as of this encounter Visit Diagnoses Not on filedocumented in this encounter Care Teams Graphic Technician Relationship Specialty Start Date End Date Ligia Becerra MD [address] [place] [address] PCP - General Family Medicine 07/22/22 Jair Pro MD [address] [place] [address] Urology 07/24/24 Tim Herrera [address] [place] [address] Neurosurgery 07/24/24 documented as of this encounter
--- OUTSIDE RECORDS SUMMARY | 2024-09-06 17:11 | XMS_ITS | Continuity of Care Document ---
Author Organization [facility] Address [address] [place] [address] Phone Care Team Providers Care Retail Service Technician Name Role Phone Unavailable Unavailable Unavailable Advance Directives Directive Yes / No Effective Date File Name No Information Encounters Encounter Description Practice Location Reason(s) For Visit Diagnoses Date Provider Providers Copied on Encounter [facility], [address] [place] [address], [address], [place] tel:[phone] [facility] Behavioral Health NO SHOW (chief complaint) No Information 9 No Information Family History Family Member Type Diagnosis Age At Onset No Information Payers Payer name Insurance type Covered green party ID Authoriza tion(s) No Information Social History Type Description Quantity Date Captured Comments Sex Male Smoking Status No Information Sexual Orientation Lesbian, dia or homosexual Gender Identity Ngyqcs-qk-Ikrg (FTM) /Transgender Male/Trans Man Chief Complaint And [...]
--- OUTSIDE RECORDS SUMMARY | 2024-09-06 17:11 | XMS_ITS | Encounter Summary ---
Author Organization [employer] Address [address] [place] [address] Care Team Providers Care Assembly Cleaner Name Role Phone Liiga Becerra MD Primary Care Provider [phone] Jair Pro MD Unavailable [phone] Tim Herrera Unavailable [phone] Reason for Visit * Reason Onset Date Comments community health 03/26/2023 Encounter Details Date Type Department Care Team (Late st Contact Info) Description 03/26/2023 Telephone [facility] [address] [place], [place] [phone] Ligia Becerra MD [address] [place], [place] [phone] community health Social History Tobacco Use Types Packs/Day Years [...] encounter Miscellaneous Notes * Telephone Encounter - Ligia Becerra MD - 03/26/2023 4:00 PM EDT Please let MRI know pt is deaf and needs security system technician. Thank you. * Telephone Encounter - Presley Sanchez - 03/26/2023 12:20 PM EDT Tc from [facility] pain management requesting [facility] transportation for pickle cutter. Detective Sergeant attempted to get a hold of RN however phone call disconnected. Please contact pt [phone] documented in this encounter Plan of Treatment Upcoming Encounters Date Type Department Care Team (Late st Contact Info) Description 09/20/2024 9:45 AM EST Office Visit [facility] [address] [place] [phone] Ligia Becerra MD [address] [place] [address] documented as of this encounter Visit Diagnoses Not on filedocumented in this encounter Additional Health Concerns Assessment Noted Time PHQ-9 Depression Total Score: 18 023 3:56 PM EDT documented as of this encounter Care Teams Assembly Cleaner Relationship Specialty Start Date End Date Ligia Becerra MD [address] [place] [address] PCP - General Family Medicine 07/22/22 Jair Pro MD [address] [place] [address] Urology 07/24/24 Tim Herrera [address] [place] [address] Neurosurgery 07/24/24 documented as of this encounter
--- OUTSIDE RECORDS SUMMARY | 2024-09-06 17:11 | XMS_ITS | Clinical Summary ---
Author Organization [employer] Address [address] [place] [address] Care Team Providers Care Review Specialist Name Role Phone Ligia Becerra MD Primary Care Provider [phone] Jair Pro MD Unavailable [phone] Tim Nolen Unavailable [phone] Allergies No known active allergies Medications * This document contains information received from the source organization and may not represent a complete record from that organization. spironolactone (Aldactone) 100 MG tabletIndications: Gender dysphoria Take 1 tablet (100 mg) by mouth in the morning. 30 tablet 11 3 Active fluticasone (Flonase) 50 MCG/ACT nasal sprayIndications:A cute bacterial rhinosinusitis Administer 1 spray into each nostril in the morning. 16 g 3 Active omeprazole OTC (PriLOSEC OTC) 20 MG EC tabletIndications: Generalized abdominal pain Take 1 tablet (20 mg) by mouth before breakfast. Do not crush, chew, or split. 30 tablet 11 4 025 Active terazosin (Hytrin) 5 MG capsuleIndications :Benign prostatic hyperplasia with urinary retention Take 5 mg by mouth at bedtime. Active tiZANidine (Zanaflex) 2 MG tabletIndications: Acute bilateral low back pain without sciatica Take 1 tab orally bid prn shoulder pain. May take 2 tablets at once if tolerated. 30 tablet 4 Active pantoprazole (ProtoNix) 40 MG EC tabletIndications: Abdominal pain, unspecified abdominal location 4 Active tamsulosin (Flomax) 0.4 MG 24 hr capsuleIndications :Benign prostatic hyperplasia with urinary frequency Take 0.4 mg by mouth at bedtime. 4 Active terazosin (Hytrin) 2 MG capsuleIndications :Benign prostatic hyperplasia with urinary frequency Take 2 mg by mouth at bedtime. 4 Active Active Problems Patient Care Coordination No te Formatting of this note migh t be different from the original. 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 Jair Pro MD, note from 04/01/24 reviewed -Cystoscopy one with mild enlarged prostate trabeculation bladder wall thickening, post void residual 14cc -Post void residual was 260cc -Bladder wall thickening 6mm on ultrasound, prostate volume small 25cc -Terazosin was reduced from 5mg to 2 mg due to dizziness Right shoulder pain 05/19/2024 Overview (05/20/2024): Right shoulder pain, unspecified chronicity, with limited ROM of RUE. -ordered XR to further evaluate and referred to Orthopedics 05/19/24 -XR 05/19/24 Distal infraspinatus calcific tendinitis, similar when compared to the prior examination. Mild acromioclavicular and minimal glenohumeral osteoarthritis, unchanged when compared to the prior examination. Assessment & Plan (05/20/2024 10:21 AM EDT): Right shoulder pain, unspecified chronicity, with limited ROM of RUE. -ordered XR to further evaluate and referred to Orthopedics 05/19/24 -XR 05/19/24 Distal infraspinatus calcific tendinitis, similar when compared to the prior examination. Mild acromioclavicular and minimal glenohumeral osteoarthritis, unchanged when compared to the prior examination. Cardiac risk counseling 12/03/2023 Overview (03/18/2024): Calculated 03/18/24: intermediate risk The 10-year ASCVD risk score (Brooklyn CLAY, et al., 2019) is: 10.7% Values used to calculate the score: Age: 64 years Sex: Male Is Non- : No Diabetic: No Tobacco smoker: No Systolic Blood Pressure: 109 mmHg Is BP treated: No HDL Cholesterol: 29 mg/dL Total Cholesterol: 130 mg/dL Lab Results Component Value Date LDLCHOL 84 07/29/2022 -Tobacco cessation: not applicable -Statin therapy: will continue to monitor and consider starting statin if LDL goes above 100 -Importance of moderate physical activity and nutrition interventions discussed. Assessment & Plan (03/18/2024 11:38 AM EDT): Calculated 03/18/24: intermediate risk The 10-year ASCVD risk score (Brook[place] CLAY, et al., 2019) is: 10.7% Values used to calculate the score: Age: 64 years Sex: Male Is Non- : No Diabetic: No Tobacco smoker: No Systolic Blood Pressure: 109 mmHg Is BP treated: No HDL Cholesterol: 29 mg/dL Total Cholesterol: 130 mg/dL Lab Results Component Value Date LDLCHOL 84 07/29/2022 -Tobacco cessation: not applicable -Statin therapy: will continue to monitor and consider starting statin if LDL goes above 100 -Importance of moderate physical activity and nutrition interventions discussed. Adjustment disorder with mixed anxiety and depre ssed mood 04/08/2023 Assessment & Plan (04/18/2023 10:36 AM EDT): Assessment: Patient with previous Psychological assessment by Wendy Rosas PhD Dx adjustment disorder and antisocial personality traits (r/o antisocial personality disorder). Presently Ashley reports that she has become homeless over the past week and is experiencing increased anxiety (difficult to control worry and nervousness, racing thoughts) and increased depression (depressed mood, difficulty sleeping, decreased appetite). Symptoms are in the context of bio-psychosocial stressors of homelessness and financial insecurity. Patient will benefit from follow through with [facility] services and recommendations as well as continued calls to the [facility]. At this time Jacob Angeles meets criteria for Visit Diagnoses: Problem List Items Addressed This Visit Other Adjustment disorder with mixed anxiety and depressed mood Personality disorder (CMS/HCC) Patient ready to address current needs Yes Strengths-Ashley is able to advocate for her wants and needs. She is in the contemplation stage of change. PLAN: 1. Follow up with [facility]: Recommended for follow-up: As needed 2. Patient goal is to follow through with [facility] services and recommendations 3. Behavioral Recommendations a. OP therapy with N b. Calling the [facility] daily Assessment & Plan (04/15/2023 1:06 PM EDT): Assessment: ?? Patient with ??previous Psychological assessment by Wendy Rosas PhD Dx adjustment disorder and antisocial personality traits (r/o antisocial personality disorder). Presently Ashley??reports that she has become homeless over the past week and is experiencing increased??anxiety??(difficult to control worry and nervousness, racing thoughts)??and??increased??depression??(depressed mood, difficulty sleeping, decreased appetite). Symptoms are in the context of bio-psychosocial stressors of homelessness and financial insecurity. Patient will benefit from crisis evaluation with [facility] and intermediate placment. ?? At this time Jacob Angeles meets criteria for Visit Diagnoses: Problem List Items Addressed This Visit ? Other ?? Adjustment disorder with mixed anxiety and depressed mood ?? Patient ready to address current needs Yes ?? Strengths- Ashley is able to advocate for her wants and needs. She is in the contemplation stage of change. ?? PLAN: 1. Follow up with [facility]: Recommended for follow-up: As needed 2. Patient goal is to engage in crisis evaluation, OP therapy, psychiatry 3. Behavioral Recommendations a. [facility] b. Call [facility] daily at 9:00 AM for intake Assessment & Plan (04/08/2023 10:38 AM EDT): Assessment: Patient with previous Psychological assessment by Wendy Rosas PhD Dx adjustment disorder and antisocial personality traits (r/o antisocial personality disorder). Presently Ashley reports that she has become homeless over the past week and is experiencing increased anxiety (difficult to control worry and nervousness, racing thoughts) and increased depression (depressed mood, difficulty sleeping, decreased appetite). Symptoms are in the context of bio-psychosocial stressors homelessness and financial insecurity. Patient will benefit from crisis evaluation with [facility], OP therapy, and psychiatry. At this time Jacob Angeles meets criteria for Visit Diagnoses: Problem List Items Addressed This Visit Other Adjustment disorder with mixed anxiety and depressed mood Personality disorder (CMS/HCC) Patient ready to address current needs Yes Strengths- Ashley is able to advocate for her wants and needs. She is in the contemplation stage of change. PLAN: 1. Follow up with [facility]: Recommended for follow-up: As needed 2. Patient goal is to engage in crisis evaluation, OP therapy, psychiatry 3. Behavioral Recommendations a. [facility] b. Call Latosha Ramirez at 9:00 AM at 04/08/23 for intake Bradycardia 02/05/2023 Overview (02/05/2023): Pt was referred to cardiology. Assessment & Plan (11/19/2023 3:55 PM EDT): Pt was referred to cardiology. Assessment & Plan (05/23/2023 9:30 AM EDT): Pt was referred to cardiology. Assessment & Plan (02/05/2023 11:04 AM EDT): Pt was referred to cardiology. Preventative health care 12/19/2022 Overview (03/18/2024): -next PE due after 03/18/25 -eye care facilitated by [facility] -dental home is [facility] -Healthcare proxy paperwork given 08/22/23, filed 03/18/24 Assessment & Plan (03/18/2024 11:39 AM EDT): -next PE due after 03/18/25 -eye care facilitated by [facility] -dental home is [facility] -Healthcare proxy paperwork given 08/22/23, filed 03/18/24 Assessment & Plan (08/22/2023 10:45 AM EST): -next PE due after Jul -eye care facilitated by -dental home is -Healthcare proxy paperwork given 08/22/23 Assessment & Plan (02/05/2023 11:02 AM EDT): -next PE due after Jul\ -eye care facilitated by -dental home is Colon cancer screening 10/28/2022 Overview (05/19/2024): -Referral given 09/17/2022 and given the number to call 02/05/2023 -will address after back surgery -consider cologuard when pt has address -Sent Cologuard 03/18/24 -Has appt in Jun 2024 for colonoscopy Assessment & Plan (05/19/2024 3:20 PM EDT): -Referral given 09/17/2022 and given the number to call 02/05/2023 -will address after back surgery -consider cologuard when pt has address -Sent Cologuard 03/18/24 -Has appt in Jun 2024 for colonoscopy Assessment & Plan (03/18/2024 11:39 AM EDT): -Referral given 09/17/2022 and given the number to call 02/05/2023 -will address after back surgery -consider cologuard when pt has address -Sent Cologuard 03/18/24 Assessment & Plan (11/19/2023 4:17 PM EDT): -Referral given 09/17/2022 and given the number to call 02/05/2023 -will address after back surgery -consider cologuard when pt has address Assessment & Plan (08/13/2023 9:54 AM EST): Referral given 09/17/2022 and given the number to call 02/05/2023. Assessment & Plan (05/23/2023 9:29 AM EDT): Referral given 09/17/2022 and given the number to call 02/05/2023. Assessment & Plan (02/05/2023 11:05 AM EDT): Referral given 09/17/2022 and given the number to call 02/05/2023. Assessment & Plan (12/12/2022 3:12 PM EDT): Number for audiology given 12/12/2022 for coloncancer screening. Placed order 09/2022 they were supposed to contact her, unclear if they did, she was given the number to call. Assessment & Plan (10/28/2022 11:05 AM EDT): Referred to GI 09/17/21. I reached out to her paralegal internship Ana Maria to assist her in following up. Class 2 severe obesity due t o excess calories with serious comorbidity in adult, unspecified BMI 07/29/2022 Assessment & Plan (10/28/2022 10:36 AM EDT): Discussed weight, diet, exercise with patient in relation to health conditions. Used motivational interviewing to illicit change talk and established initial goals with patient. Metabolic disorder 07/29/2022 Androgenic alopecia 07/29/2022 Overview (10/28/2022): -Pt has late stage androgenic alopecia. This has bothered her since prior to 2009. She believes their is a medicine that will grow her hair back. Continue to manage expectations. She does not want a wig at this time. Assessment & Plan (11/19/2023 4:15 PM EDT): -Pt has late stage androgenic alopecia. This has bothered her since prior to 2009. She believes their is a medicine that will grow her hair back. Continue to manage expectations. She does not want a wig at this time. Assessment & Plan (08/22/2023 9:06 AM EST): -Pt has late stage androgenic alopecia. This has bothered her since prior to 2009. She believes their is a medicine that will grow her hair back. Continue to manage expectations. She does not want a wig at this time. Assessment & Plan (08/13/2023 9:49 AM EST): -Pt has late stage androgenic alopecia. This has bothered her since prior to 2009. She believes their is a medicine that will grow her hair back. Continue to manage expectations. She does not want a wig at this time. Assessment & Plan (05/23/2023 9:28 AM EDT): -Pt has late stage androgenic alopecia. This has bothered her since prior to 2009. She believes their is a medicine that will grow her hair back. Continue to manage expectations. She does not want a wig at this time. Assessment & Plan (02/05/2023 9:24 AM EDT): -Pt has late stage androgenic alopecia. This has bothered her since prior to 2009. She believes their is a medicine that will grow her hair back. Continue to manage expectations. She does not want a wig at this time. Assessment & Plan (10/28/2022 10:38 AM EDT): -Pt has late stage androgenic alopecia. This has bothered her since prior to 2009. She believes their is a medicine that will grow her hair back. Continue to manage expectations. She does not want a wig at this time. Assessment & Plan (07/29/2022 11:10 AM EST): Pt has late stage androgenic alopecia. This has bothered her since prior to 2009. She believes their is a medicine that will grow her hair back. Continue to manage expectations. We can discuss hair piece in the future. Gender dysphoria 07/25/2022 Overview (05/23/2023): -On 09/12/2022 we reviewed risks and benefits of feminizing hormone therapy. Discussed use of estrogen and/or anti-androgens, reversible vs irreversible side effects. Reviewed need for baseline labs and regular monitoring. Reviewed expected time lines in terms of desired effects. -patient demonstrates basic understanding of risks and benefits or hormone replacement therapy. -estradiol 2mg daily started 09/12/2022 -spironolactone 100mg daily started 09/12/2022 -she did not follow up or labs and self discontinue estradiol. She is requesting patches. -Minivelle 0.25 twice a week started 05/23/2023 -she does not have realistic expectations about what her hormones can do in terms of breast development and hair growth. Shared decision making done regarding her inquiring about breast implants. She will wait until her housing is stable and back issues are improved. Assessment & Plan (11/19/2023 4:14 PM EDT): -On 09/12/2022 we reviewed risks and benefits of feminizing hormone therapy. Discussed use of estrogen and/or anti-androgens, reversible vs irreversible side effects. Reviewed need for baseline labs and regular monitoring. Reviewed expected time lines in terms of desired effects. -patient demonstrates basic understanding of risks and benefits or hormone replacement therapy. -estradiol 2mg daily started 09/12/2022 -spironolactone 100mg daily started 09/12/2022 -she did not follow up or labs and self discontinue estradiol. She is requesting patches. -Minivelle 0.25 twice a week started 05/23/2023 -she does not have realistic expectations about what her hormones can do in terms of breast development and hair growth. Shared decision making done regarding her inquiring about breast implants. She will wait until her housing is stable and back issues are improved. Assessment & Plan (08/22/2023 9:06 AM EST): -On 09/12/2022 we reviewed risks and benefits of feminizing hormone therapy. Discussed use of estrogen and/or anti-androgens, reversible vs irreversible side effects. Reviewed need for baseline labs and regular monitoring. Reviewed expected time lines in terms of desired effects. -patient demonstrates basic understanding of risks and benefits or hormone replacement therapy. -estradiol 2mg daily started 09/12/2022 -spironolactone 100mg daily started 09/12/2022 -she did not follow up or labs and self discontinue estradiol. She is requesting patches. -Minivelle 0.25 twice a week started 05/23/2023 -she does not have realistic expectations about what her hormones can do in terms of breast development and hair growth. Shared decision making done regarding her inquiring about breast implants. She will wait until her housing is stable and back issues are improved. Assessment & Plan (08/13/2023 9:49 AM EST): -On 09/12/2022 we reviewed risks and benefits of feminizing hormone therapy. Discussed use of estrogen and/or anti-androgens, reversible vs irreversible side effects. Reviewed need for baseline labs and regular monitoring. Reviewed expected time lines in terms of desired effects. -patient demonstrates basic understanding of risks and benefits or hormone replacement therapy. -estradiol 2mg daily started 09/12/2022 -spironolactone 100mg daily started 09/12/2022 -she did not follow up or labs and self discontinue estradiol. She is requesting patches. -Minivelle 0.25 twice a week started 05/23/2023 -she does not have realistic expectations about what her hormones can do in terms of breast development and hair growth. Shared decision making done regarding her inquiring about breast implants. She will wait until her housing is stable and back issues are improved. Assessment & Plan (05/23/2023 1:21 PM EDT): -On 09/12/2022 we reviewed risks and benefits of feminizing hormone therapy. Discussed use of estrogen and/or anti-androgens, reversible vs irreversible side effects. Reviewed need for baseline labs and regular monitoring. Reviewed expected time lines in terms of desired effects. -patient demonstrates basic understanding of risks and benefits or hormone replacement therapy. -estradiol 2mg daily started 09/12/2022 -spironolactone 100mg daily started 09/12/2022 -she did not follow up or labs and self discontinue estradiol. She is requesting patches. -Minivelle 0.25 twice a week started 05/23/2023 -she does not have realistic expectations about what her hormones can do in terms of breast development and hair growth. Shared decision making done regarding her inquiring about breast implants. She will wait until her housing is stable and back issues are improved. Assessment & Plan (02/05/2023 9:24 AM EDT): -On 09/12/2022 we reviewed risks and benefits of feminizing hormone therapy. Discussed use of estrogen and/or anti-androgens, reversible vs irreversible side effects. Reviewed need for baseline labs and regular monitoring. Reviewed expected time lines in terms of desired effects. -patient demonstrates basic understanding of risks and benefits or hormone replacement therapy. -estradiol 2mg daily started 09/12/2022 -spironolactone 100mg daily started 09/12/2022 -overdue for labs. Assessment & Plan (10/28/2022 10:42 AM EDT): -On 09/12/2022 we reviewed risks and benefits of feminizing hormone therapy. Discussed use of estrogen and/or anti-androgens, reversible vs irreversible side effects. Reviewed need for baseline labs and regular monitoring. Reviewed expected time lines in terms of desired effects. -patient demonstrates basic understanding of risks and benefits or hormone replacement therapy. -estradiol 2mg daily started 09/12/2022 -spironolactone 100mg daily started 09/12/2022 -overdue for labs. Assessment & Plan (09/17/2022 3:40 PM EST): I will be calling case resource manager to discuss Pts option. Pt is interested in breast augmentation. She knows she needs a thereapist. Discussed options with Ajit Rodrigez. Assessment & Plan (09/12/2022 2:28 PM EST): Start spironolactone 100mg once a day, and estradiol 2mg twice a day. Continue to try to manage expectations. Personality disorder 07/25/2022 Overview (05/23/2023): -psychological assessment with Wendy Rosas, PhD. Clinical Psychologist, December 2016 recommending neuopshcyolgical testing to determine if significant cognitive improvement exists. Pt did not follow through. Pt given dx adjustment disorder and antisocial personalty traits (r/o antisocial personality disorder). -Dr. Rosas noted that Pt general tendency is to resist or disengage from any service that does not obviously appear to be relevant to them recommending using motivational interviewing when offering services. -Team meeting pt and housing management representative from safety, behavior health, case managment, viability and myself on 05/23/2023 done to reinforce which services to use when seeking assistance and setting up behavior expatiation when in the clinic. -[facility] ([facility]) STAFF ANTISUBMARINE OFFICER [phone] Assessment & Plan (11/19/2023 4:15 PM EDT): psychological assessment with Wendy Rosas, PhD. Clinical Psychologist, December 2016 recommending neuopshcyolgical testing to determine if significant cognitive improvement exists. Pt did not follow through. Pt given dx adjustment disorder and antisocial personalty traits (r/o antisocial personality disorder). -Dr. Rosas noted that Pt general tendency is to resist or disengage from any service that does not obviously appear to be relevant to them recommending using motivational interviewing when offering services. -Team meeting pt and housing management representative from safety, behavior health, case managment, viability and myself on 05/23/2023 done to reinforce which services to use when seeking assistance and setting up behavior expatiation when in the clinic. -[facility] ([facility]) STAFF ANTISUBMARINE OFFICER [phone] Assessment & Plan (08/22/2023 9:06 AM EST): -psychological assessment with Wendy Rosas PhD. Clinical Psychologist, December 2016 recommending neuopshcyolgical testing to determine if significant cognitive improvement exists. Pt did not follow through. Pt given dx adjustment disorder and antisocial personalty traits (r/o antisocial personality disorder). -Dr. Rosas noted that Pt general tendency is to resist or disengage from any service that does not obviously appear to be relevant to them recommending using motivational interviewing when offering services. -Team meeting pt and housing management representative from safety, behavior health, case managment, viability and myself on 05/23/2023 done to reinforce which services to use when seeking assistance and setting up behavior expatiation when in the clinic. -[facility] ([facility]) STAFF ANTISUBMARINE OFFICER [phone] Assessment & Plan (08/13/2023 9:50 AM EST): -psychological assessment with Wendy Rosas PhD. Clinical Psychologist, December 2016 recommending neuopshcyolgical testing to determine if significant cognitive improvement exists. Pt did not follow through. Pt given dx adjustment disorder and antisocial personalty traits (r/o antisocial personality disorder). -Dr. Rosas noted that Pt general tendency is to resist or disengage from any service that does not obviously appear to be relevant to them recommending using motivational interviewing when offering services. -Team meeting pt and housing management representative from safety, behavior health, case managment, viability and myself on 05/23/2023 done to reinforce which services to use when seeking assistance and setting up behavior expatiation when in the clinic. -[facility] ([facility]) STAFF ANTISUBMARINE OFFICER [phone] Assessment & Plan (05/23/2023 1:14 PM EDT): -psychological assessment with Wendy Rosas, PhD. Clinical Psychologist, December 2016 recommending neuopshcyolgical testing to determine if significant cognitive improvement exists. Pt did not follow through. Pt given dx adjustment disorder and antisocial personalty traits (r/o antisocial personality disorder). -Dr. Rosas noted that Pt general tendency is to resist or disengage from any service that does not obviously appear to be relevant to them recommending using motivational interviewing when offering services. -Team meeting pt and housing management representative from safety, behavior health, case managment, viability and myself on 05/23/2023 done to reinforce which services to use when seeking assistance and setting up behavior expatiation when in the clinic. -[facility]) STAFF ANTISUBMARINE OFFICER [phone] Assessment & Plan (02/05/2023 11:15 AM EDT): -psychological assessment with Wendy Rosas, PhD. Clinical Psychologist, December 2016 recommending neuopshcyolgical testing to determine if significant cognitive improvement exists. Pt did not follow through. Pt given dx adjustment disorder and antisocial personalty traits (r/o antisocial personality disorder). -Dr. Rosas noted that Pt general tendency is to resist or disengage from any service that does not obviously appear to be relevant to them recommending using motivational interviewing when offering services. -[facility] with Jose Ramos Jr. STAFF ANTISUBMARINE OFFICER , text . Assessment & Plan (10/28/2022 10:34 AM EDT): -psychological assessment with Wendy Rosas PhD. Clinical Psychologist, December 2016 recommending neuopshcyolgical testing to determine if significant cognitive improvement exists. Pt did not follow through. Pt given dx adjustment disorder and antisocial personalty traits (r/o antisocial personality disorder). -Dr. Rosas noted that Pt general tendency is to resist or disengage from any service that does not obviously appear to be relevant to them recommending using motivational interviewing when offering services. Assessment & Plan (07/25/2022 12:26 PM EST): -psychological assessment with Wendy Rosas, PhD. Clinical Psychologist, December 2016 recommending neuopshcyolgical testing to determine if significant cognitive improvement exists. Pt did not follow through. Pt given dx adjustment disorder and antisocial personalty traits (r/o antisocial personality disorder). -Dr. Rosas noted that Pt general tendency is to resist or disengage from any service that does not obviously appear to be relevant to them recommending using motivational interviewing when offering services. Psychiatric disorder 07/25/2022 Overview (07/25/2022): -psychological assessment with Wendy Rosas PhD. Clinical Psychologist, December 2016 recommending neuopshcyolgical testing to determine if significant cognitive improvement exists. Pt did not follow through. Pt given dx adjustment disorder and antisocial personalty traits (r/o antisocial personality disorder). -Dr. Rosas noted that Pt general tendency is to resist or disengage from any service that does not obviously appear to be relevant to them recommending using motivational interviewing when offering services. Assessment & Plan (11/19/2023 4:16 PM EDT): -psychological assessment with Wendy Rosas, PhD. Clinical Psychologist, December 2016 recommending neuopshcyolgical testing to determine if significant cognitive improvement exists. Pt did not follow through. Pt given dx adjustment disorder and antisocial personalty traits (r/o antisocial personality disorder). -Dr. Rosas noted that Pt general tendency is to resist or disengage from any service that does not obviously appear to be relevant to them recommending using motivational interviewing when offering services. Assessment & Plan (08/22/2023 9:07 AM EST): -psychological assessment with Wendy Rosas PhD. Clinical Psychologist, December 2016 recommending neuopshcyolgical testing to determine if significant cognitive improvement exists. Pt did not follow through. Pt given dx adjustment disorder and antisocial personalty traits (r/o antisocial personality disorder). -Dr. Rosas noted that Pt general tendency is to resist or disengage from any service that does not obviously appear to be relevant to them recommending using motivational interviewing when offering services Assessment & Plan (08/13/2023 9:51 AM EST): -psychological assessment with Wendy Rosas, PhD. Clinical Psychologist, December 2016 recommending neuopshcyolgical testing to determine if significant cognitive improvement exists. Pt did not follow through. Pt given dx adjustment disorder and antisocial personalty traits (r/o antisocial personality disorder). -Dr. Rosas noted that Pt general tendency is to resist or disengage from any service that does not obviously appear to be relevant to them recommending using motivational interviewing when offering services. Assessment & Plan (05/23/2023 9:28 AM EDT): -psychological assessment with Wendy Rosas, PhD. Clinical Psychologist, December 2016 recommending neuopshcyolgical testing to determine if significant cognitive improvement exists. Pt did not follow through. Pt given dx adjustment disorder and antisocial personalty traits (r/o antisocial personality disorder). -Dr. Rosas noted that Pt general tendency is to resist or disengage from any service that does not obviously appear to be relevant to them recommending using motivational interviewing when offering services. Assessment & Plan (02/05/2023 9:25 AM EDT): -psychological assessment with Wendy Rosas, PhD. Clinical Psychologist, December 2016 recommending neuopshcyolgical testing to determine if significant cognitive improvement exists. Pt did not follow through. Pt given dx adjustment disorder and antisocial personalty traits (r/o antisocial personality disorder). -Dr. Rosas noted that Pt general tendency is to resist or disengage from any service that does not obviously appear to be relevant to them recommending using motivational interviewing when offering services. Assessment & Plan (10/28/2022 10:39 AM EDT): -psychological assessment with Wendy Rosas, PhD. Clinical Psychologist, December 2016 recommending neuopshcyolgical testing to determine if significant cognitive improvement exists. Pt did not follow through. Pt given dx adjustment disorder and antisocial personalty traits (r/o antisocial personality disorder). -Dr. Rosas noted that Pt general tendency is to resist or disengage from any service that does not obviously appear to be relevant to them recommending using motivational interviewing when offering services. Assessment & Plan (07/25/2022 12:26 PM EST): -psychological assessment with Wendy Rosas, PhD. Clinical Psychologist, December 2016 recommending neuopshcyolgical testing to determine if significant cognitive improvement exists. Pt did not follow through. Pt given dx adjustment disorder and antisocial personalty traits (r/o antisocial personality disorder). -Dr. Rosas noted that Pt general tendency is to resist or disengage from any service that does not obviously appear to be relevant to them recommending using motivational interviewing when offering services. Chronic bilateral thoracic back pain 07/25/2022 Overview (08/04/2024): Symptoms severe. This patient is suffering from neurogenic claudication with pain and weakness caused by severe lumbar spinal stenosis at L4-5 with a complete obliteration of the spinal canal and moderate spinal stenosis at L2-3 and L3-4. -Hx c-spine cord compression s/p surgery with good results prior to 2016. -MRI thoracic spine 12/10/16 reveals nonspecific thoracic enthesopathy and multilevel thoracic spondylosis with stenosis and small lower thoracic spinal cord syrinx. -Referred to orthopedics 10/31/22, seen Faina Jimenez PA-C. -no improvement with Meloxicam 15mg, NSAIDS, Acetaminophen, lidocaine patches, low does oxycodone, dilaudid (prescribed via ER), Lyrica and gabapentin. -Referred to pain managemnt scheduled 04/10/23. -MRI of thoracic and lumber 05/15/23 multilevel degenerative changes with severe central stenosis, 3mm focus of T2 prolongation in right dorsal aspect of conus without cord compression. Differential includes myelomalacia related to prior cord impingement or infectious/inflammatory disorder. Suggest follow up MRI of thoracic spine with and without contrast to evaluate for any other lesion and assess for enhancement. -MRI thoracic spine 05/24/23 the T2 hyperintense signal abnormality in the conus at T11-T12 does not appear significant;y changed, and does not enhance. Differential is unchanged. There are no enhancing lesions to indicate active inflammatory or demyelinating process. There is a minimal discontinuous syrix in the thoracic spinal cord between T5 and T5. -Pt saw pain management again 04/17/2023 they recomended PT. -Duragesic prescribed by [facility] but pt did not shredder picker. -She returned to pain management 06/02/2023 and was referred to neurosurgery -seen by Dr. Tim Nolen MD, PhD , Spine Fellowship Trained Neurosurgeon, Director, [facility] 06/25/2023 -Pt offered a multilevel decompression of the above-mentioned levels. Pt is scheduled for 08/12/2023 but had to be postponed due to UTI. I will call office to see if we can assist in follow up. -called office they just need a copy of normal urine. new appt scheduled with Dr. Nolen on 11/25/2023 -Multiple DME requests made due to limited mobility. -03/18/24, pt still reports back pain and awaiting date for surgery. -discussed getting Urological problems under control before continuing with back treatment plan. -encouraged to call back Surgeon after Urology problems have been handled 05/19/24 Assessment & Plan (05/19/2024 3:21 PM EDT): Symptoms severe. This patient is suffering from neurogenic claudication with pain and weakness caused by severe lumbar spinal stenosis at L4-5 with a complete obliteration of the spinal canal and moderate spinal stenosis at L2-3 and L3-4. -Hx c-spine cord compression s/p surgery with good results prior to 2016. -MRI thoracic spine 12/10/16 reveals nonspecific thoracic enthesopathy and multilevel thoracic spondylosis with stenosis and small lower thoracic spinal cord syrinx. -Referred to orthopedics 10/31/22, seen Faina Jimenez PA-C. -no improvement with Meloxicam 15mg, NSAIDS, Acetaminophen, lidocaine patches, low does oxycodone, dilaudid (prescribed via ER), Lyrica and gabapentin. -Referred to pain managemnt scheduled 04/10/23. -MRI of thoracic and lumber 05/15/23 multilevel degenerative changes with severe central stenosis, 3mm focus of T2 prolongation in right dorsal aspect of conus without cord compression. Differential includes myelomalacia related to prior cord impingement or infectious/inflammatory disorder. Suggest follow up MRI of thoracic spine with and without contrast to evaluate for any other lesion and assess for enhancement. PT wishes to wait. -Pt saw pain management again 04/17/2023 they recomended PT. -Duragesic prescribed by [facility] but pt did not shredder picker. -She returned to pain management 06/02/2023 and was referred to neurosurgery -seen by Dr. Tim Nolen MD, PhD , Spine Fellowship Trained Neurosurgeon, Director, [facility] -Ptoffered a multilevel decompression of the above-mentioned levels. Pt is scheduled for 08/12/2023 but had to be postponed due to UTI. I will call office to see if we can assist in follow up. -called office they just need a copy of normal urine. new appt scheduled with Dr. nolen on 11/25/2023 -Multiple DME requests made due to limited mobility. 03/18/24, pt still reports back pain and awaiting date for surgery. -discussed getting Urological problems under control before continuing with back treatment plan. -encouraged to call back Surgeon after Urology problems have been handled 05/19/24 Assessment & Plan (03/18/2024 11:37 AM EDT): Symptoms severe. This patient is suffering from neurogenic claudication with pain and weakness caused by severe lumbar spinal stenosis at L4-5 with a complete obliteration of the spinal canal and moderate spinal stenosis at L2-3 and L3-4. -Hx c-spine cord compression s/p surgery with good results prior to 2016. -MRI thoracic spine 12/10/16 reveals nonspecific thoracic enthesopathy and multilevel thoracic spondylosis with stenosis and small lower thoracic spinal cord syrinx. -Referred to orthopedics 10/31/22, seen Faina Jimenez PA-C. -no improvement with Meloxicam 15mg, NSAIDS, Acetaminophen, lidocaine patches, low does oxycodone, dilaudid (prescribed via ER), Lyrica and gabapentin. -Referred to pain managemnt scheduled 04/10/23. -MRI of thoracic and lumber 05/15/23 multilevel degenerative changes with severe central stenosis, 3mm focus of T2 prolongation in right dorsal aspect of conus without cord compression. Differential includes myelomalacia related to prior cord impingement or infectious/inflammatory disorder. Suggest follow up MRI of thoracic spine with and without contrast to evaluate for any other lesion and assess for enhancement. PT wishes to wait. -Pt saw pain management again 04/17/2023 they recomended PT. -Duragesic prescribed by [facility] but pt did not shredder picker. -She returned to pain management 06/02/2023 and was referred to neurosurgery -seen by Dr. Tim Nolen MD, PhD , Spine Fellowship Trained Neurosurgeon, Director, [facility] -Ptoffered a multilevel decompression of the above-mentioned levels. Pt is scheduled for 08/12/2023 but had to be postponed due to UTI. I will call office to see if we can assist in follow up. -called office they just need a copy of normal urine. new appt scheduled with Dr. nolen on 11/25/2023 -Multiple DME requests made due to limited mobility. 03/18/24, pt still reports back pain and awaiting date for surgery. -discussed getting Urological problems under control before continuing with back treatment plan. Assessment & Plan (12/18/2023 12:04 PM EDT): Symptoms severe. This patient is suffering from neurogenic claudication with pain and weakness caused by severe lumbar spinal stenosis at L4-5 with a complete obliteration of the spinal canal and moderate spinal stenosis at L2-3 and L3-4. -Hx c-spine cord compression s/p surgery with good results prior to 2016. -MRI thoracic spine 12/10/16 reveals nonspecific thoracic enthesopathy and multilevel thoracic spondylosis with stenosis and small lower thoracic spinal cord syrinx. -Referred to orthopedics 10/31/22, seen Faina Jimenez PA-C. -no improvement with Meloxicam 15mg, NSAIDS, Acetaminophen, lidocaine patches, low does oxycodone, dilaudid (prescribed via ER), Lyrica and gabapentin. -Referred to pain managemnt scheduled 04/10/23. -MRI of thoracic and lumber 05/15/23 multilevel degenerative changes with severe central stenosis, 3mm focus of T2 prolongation in right dorsal aspect of conus without cord compression. Differential includes myelomalacia related to prior cord impingement or infectious/inflammatory disorder. Suggest follow up MRI of thoracic spine with and without contrast to evaluate for any other lesion and assess for enhancement. PT wishes to wait. -Pt saw pain management again 04/17/2023 they recomended PT. -Duragesic prescribed by [facility] but pt did not shredder picker. -She returned to pain management 06/02/2023 and was referred to neurosurgery -seen by Dr. Tim Nolen MD, PhD , Spine Fellowship Trained Neurosurgeon, Director, [facility] -Ptoffered a multilevel decompression of the above-mentioned levels. Pt is scheduled for 08/12/2023 but had to be postponed due to UTI. I will call office to see if we can assist in follow up. -called office they just need a copy of normal urine. new appt scheduled with Dr. nolen on 11/25/2023 -Multiple DME requests made due to limited mobility. Assessment & Plan (11/19/2023 4:16 PM EDT): Symptoms severe. This patient is suffering from neurogenic claudication with pain and weakness caused by severe lumbar spinal stenosis at L4-5 with a complete obliteration of the spinal canal and moderate spinal stenosis at L2-3 and L3-4. -Hx c-spine cord compression s/p surgery with good results prior to 2016. -MRI thoracic spine 12/10/16 reveals nonspecific thoracic enthesopathy and multilevel thoracic spondylosis with stenosis and small lower thoracic spinal cord syrinx. -Referred to orthopedics 10/31/22, seen Faina Jimenez PA-C. -no improvement with Meloxicam 15mg, NSAIDS, Acetaminophen, lidocaine patches, low does oxycodone, dilaudid (prescribed via ER), Lyrica and gabapentin. -Referred to pain managemnt scheduled 04/10/23. -MRI of thoracic and lumber 05/15/23 multilevel degenerative changes with severe central stenosis, 3mm focus of T2 prolongation in right dorsal aspect of conus without cord compression. Differential includes myelomalacia related to prior cord impingement or infectious/inflammatory disorder. Suggest follow up MRI of thoracic spine with and without contrast to evaluate for any other lesion and assess for enhancement. PT wishes to wait. -Pt saw pain management again 04/17/2023 they recomended PT. -Duragesic prescribed by [facility] but pt did not shredder picker. -She returned to pain management 06/02/2023 and was referred to neurosurgery -seen by Dr. Tim Nolen MD, PhD , Spine Fellowship Trained Neurosurgeon, Director, [facility] -Ptoffered a multilevel decompression of the above-mentioned levels. Pt is scheduled for 08/12/2023 but had to be postponed due to UTI. I will call office to see if we can assist in follow up. -called office they just need a copy of normal urine. new appt scheduled with Dr. nolen on 11/25/2023 Assessment & Plan (08/22/2023 11:00 AM EST): Symptoms severe. This patient is suffering from neurogenic claudication with pain and weakness caused by severe lumbar spinal stenosis at L4-5 with a complete obliteration of the spinal canal and moderate spinal stenosis at L2-3 and L3-4. -Hx c-spine cord compression s/p surgery with good results prior to 2016. -MRI thoracic spine 12/10/16 reveals nonspecific thoracic enthesopathy and multilevel thoracic spondylosis with stenosis and small lower thoracic spinal cord syrinx. -Referred to orthopedics 10/31/22, seen Faina Jimenez PA-C. -no improvement with Meloxicam 15mg, NSAIDS, Acetaminophen, lidocaine patches, low does oxycodone, dilaudid (prescribed via ER), Lyrica and gabapentin. -Referred to pain managemnt scheduled 04/10/23. -MRI of thoracic and lumber 05/15/23 multilevel degenerative changes with severe central stenosis, 3mm focus of T2 prolongation in right dorsal aspect of conus without cord compression. Differential includes myelomalacia related to prior cord impingement or infectious/inflammatory disorder. Suggest follow up MRI of thoracic spine with and without contrast to evaluate for any other lesion and assess for enhancement. PT wishes to wait. -Pt saw pain management again 04/17/2023 they recomended PT. -Duragesic prescribed by [facility] but pt did not shredder picker. -She returned to pain management 06/02/2023 and was referred to neurosurgery -seen by Dr. Tim Nolen MD, PhD , Spine Fellowship Trained Neurosurgeon, Director, [facility] -Ptoffered a multilevel decompression of the above-mentioned levels. Pt is scheduled for 08/12/2023 but had to be postponed due to UTI. I will call office to see if we can assist in follow up. -called office they just need a copy of normal urine. new appt scheduled with Dr. nolen on 11/25/2023 Assessment & Plan (08/13/2023 9:52 AM EST): Symptoms severe. This patient is suffering from neurogenic claudication with pain and weakness caused by severe lumbar spinal stenosis at L4-5 with a complete obliteration of the spinal canal and moderate spinal stenosis at L2-3 and L3-4. -Hx c-spine cord compression s/p surgery with good results prior to 2016. -MRI thoracic spine 12/10/16 reveals nonspecific thoracic enthesopathy and multilevel thoracic spondylosis with stenosis and small lower thoracic spinal cord syrinx. -Referred to orthopedics 10/31/22, seen Faina Jimenez PA-C. -no improvement with Meloxicam 15mg, NSAIDS, Acetaminophen, lidocaine patches, low does oxycodone, dilaudid (prescribed via ER), Lyrica and gabapentin. -Referred to pain managemnt scheduled 04/10/23. -MRI of thoracic and lumber 05/15/23 multilevel degenerative changes with severe central stenosis, 3mm focus of T2 prolongation in right dorsal aspect of conus without cord compression. Differential includes myelomalacia related to prior cord impingement or infectious/inflammatory disorder. Suggest follow up MRI of thoracic spine with and without contrast to evaluate for any other lesion and assess for enhancement. PT wishes to wait. -Pt saw pain management again 04/17/2023 they recomended PT. -Duragesic prescribed by [facility] but pt did not shredder picker. -She returned to pain management 06/02/2023 and was referred to neurosurgery -seen by Dr. Tim Nolen MD, PhD , Spine Fellowship Trained Neurosurgeon, Director, [facility] -Ptoffered a multilevel decompression of the above-mentioned levels. Pt is scheduled for 08/12/2023. Assessment & Plan (05/23/2023 1:28 PM EDT): Symptoms severe. -Hx c-spine cord compression s/p surgery with good results prior to 2016. -MRI thoracic spine 12/10/16 reveals nonspecific thoracic enthesopathy and multilevel thoracic spondylosis with stenosis and small lower thoracic spinal cord syrinx. -Referred to orthopedics 10/31/22, seen Faina Jimenez PA-C. -no improvement with Meloxicam 15mg, NSAIDS, Acetaminophen, lidocaine patches, low does oxycodone, dilaudid (prescribed via ER), Lyrica and gabapentin. -Referred to pain managemnt scheduled 04/10/23. -MRI of thoracic and lumber 05/15/23 multilevel degenerative changes with severe central stenosis, 3mm focus of T2 prolongation in right dorsal aspect of conus without cord compression. Differential includes myelomalacia related to prior cord impingement or infectious/inflammatory disorder. Suggest follow up MRI of thoracic spine with and without contrast to evaluate for any other lesion and assess for enhancement. PT wishes to wait. -Pt saw pain management again 04/17/2023 they recomended PT. -Has follow up 05/24/23 I believe for ortho but pt unsure. Assessment & Plan (03/26/2023 4:17 PM EDT): Symptoms severe. -MRI thoracic spine 12/10/16 reveals nonspecific thoracic enthesopathy and multilevel thoracic spondylosis with stenosis and small lower thoracic spinal cord syrinx. -Hx c-spine cord compression s/p surgery with good results prior to 2016. She was referred to Orthopedic 10/21/22 -Referred to orthopedics 10/31/22, seen Faina Jimenez PA-C. Meloxicam 15mg daily prescribed and xrays ordered. Moe encouraged her to follow up with their clinic. -Referred to pain managemnt scheduled 04/10/23. -MRI of thoracic and lumber 03/26/2023. -Short trial of oxycodone 5mg BID, 10 tabs given on 03/26/2023. Assessment & Plan (02/05/2023 11:06 AM EDT): -MRI thoracic spine 12/10/16 reveals nonspecific thoracic enthesopathy and multilevel thoracic spondylosis with stenosis and small lower thoracic spinal cord syrinx. -Hx c-spine cord compression s/p surgery with good results prior to 2016. She was referred to Orthopedic 10/21/22 -10/2022 referred to PT by orthopedics but she has not gone yet so I encouraged her to call. -Referred to orthopedics 10/31/22, seen Faina Jimenez PA-C. Meloxicam 15mg daily prescribed and xrays ordered. Moe encouraged her to follow up with their clinic. -Referred to pain managemnt on 12/30/2022 and they are to be contacting Pt and number given to her on 02/05/2023. Assessment & Plan (12/12/2022 3:12 PM EDT): -MRI thoracic spine 12/10/16 reveals nonspecific thoracic enthesopathy and multilevel thoracic spondylosis with stenosis and small lower thoracic spinal cord syrinx. -Hx c-spine cord compression s/p surgery with good results prior to 2016. She was referred to Orthopedic 10/21/22 -10/2022 referred to PT by orthopedics but she has not gone yet so I encouraged her to call. Assessment & Plan (10/28/2022 11:04 AM EDT): -MRI thoracic spine 12/10/16 reveals nonspecific thoracic enthesopathy and multilevel thoracic spondylosis with stenosis and small lower thoracic spinal cord syrinx. -Hx c-spine cord compression s/p surgery with good results prior to 2016. She was referred to Orthopedic 10/21/22. Pt seen 10/21/22, we are waiting for the note she was proscribed cyclobenzaprine. I reached out to her paralegal internship Ana Maria to assist her in following up. Assessment & Plan (09/17/2022 3:21 PM EST): Pt has advanced multi-level disk degenerative disease. -MRI thoracic spine 12/10/16 reveals nonspecific thoracic enthesopathy and multilevel thoracic spondylosis with stenosis and small lower thoracic spinal cord syrinx. -Hx c-spine cord compression s/p surgery with good results prior to 2017. An MRI of lumbar spine 08/27/2019 could not be completed due to cloustrophobia. Referral to orthopedics 09/17/22. Assessment & Plan (09/12/2022 2:19 PM EST): Referral to orthopedics 09/12/22. Assessment & Plan (07/25/2022 12:24 PM EST): -MRI thoracic spine 12/10/16 reveals nonspecific thoracic enthesopathy and multilevel thoracic spondylosis with stenosis and small lower thoracic spinal cord syrinx. -Hx c-spine cord compression s/p surgery with good results prior to 2016. Gammopathy with multiple M spikes 07/25/2022 Overview (07/25/2022): -MRI 10/14/16 reveals heterogenous bone marrow signal. -SPEP 2017 significant for M spike. Immunofixation significant for isolated IgG kappa. Findings of monoclonial antibody can be normal in 10% of population >60. No evidence of acute myeloma. Pt may have MGUS which would require following with blood work. Assessment & Plan (11/19/2023 4:13 PM EDT): -MRI 10/14/16 reveals heterogenous bone marrow signal. -SPEP 2017 significant for M spike. Immunofixation significant for isolated IgG kappa. Findings of monoclonial antibody can be normal in 10% of population >60. No evidence of acute myeloma. Pt may have MGUS which would require following with blood work. Assessment & Plan (08/22/2023 9:07 AM EST): -MRI 10/14/16 reveals heterogenous bone marrow signal. -SPEP 2017 significant for M spike. Immunofixation significant for isolated IgG kappa. Findings of monoclonial antibody can be normal in 10% of population >60. No evidence of acute myeloma. Pt may have MGUS which would require following with blood work Assessment & Plan (08/13/2023 9:54 AM EST): -MRI 10/14/16 reveals heterogenous bone marrow signal. -SPEP 2017 significant for M spike. Immunofixation significant for isolated IgG kappa. Findings of monoclonial antibody can be normal in 10% of population >60. No evidence of acute myeloma. Pt may have MGUS which would require following with blood work. Assessment & Plan (05/23/2023 9:29 AM EDT): -MRI 10/14/16 reveals heterogenous bone marrow signal. -SPEP 2017 significant for M spike. Immunofixation significant for isolated IgG kappa. Findings of monoclonial antibody can be normal in 10% of population >60. No evidence of acute myeloma. Pt may have MGUS which would require following with blood work. Assessment & Plan (02/05/2023 9:24 AM EDT): -MRI 10/14/16 reveals heterogenous bone marrow signal. -SPEP 2016 significant for M spike. Immunofixation significant for isolated IgG kappa. Findings of monoclonial antibody can be normal in 10% of population >60. No evidence of acute myeloma. Pt may have MGUS which would require following with blood work. Assessment & Plan (10/28/2022 10:37 AM EDT): -MRI 10/14/16 reveals heterogenous bone marrow signal. -SPEP 2017 significant for M spike. Immunofixation significant for isolated IgG kappa. Findings of monoclonial antibody can be normal in 10% of population >60. No evidence of acute myeloma. Pt may have MGUS which would require following with blood work. Assessment & Plan (07/25/2022 12:28 PM EST): -MRI 10/14/16 reveals heterogenous bone marrow signal. -SPEP 2017 significant for M spike. Immunofixation significant for isolated IgG kappa. Findings of monoclonial antibody can be normal in 10% of population >60. No evidence of acute myeloma. Pt may have MGUS which would require following with blood work. BPH (benign prostatic hyperplasia) 07/25/2022 Assessment & Plan (03/01/2024 4:56 PM EDT): No post void residue after post void catheterization done by RN. Will order post void renal/bladder US to quantify residue. Continue bactrim for UTI. Obtain urine cx from urology office Advised to continue terazosin and keep rondon in FU with PCP as scheduled or earlier prn. Avitaminosis D 11/27/2021 Hepatitis B core antibody positive 11/27/2021 Overview (11/01/2022): -Hep B viral load negative 10/2022 Assessment & Plan (11/19/2023 4:13 PM EDT): -Hep B viral load negative 10/2022 Assessment & Plan (08/22/2023 9:05 AM EST): -Hep B viral load negative 10/2022 Assessment & Plan (08/13/2023 9:47 AM EST): -Hep B viral load negative 10/2022 Assessment & Plan (05/23/2023 9:27 AM EDT): -Hep B viral load negative 10/2022 Assessment & Plan (02/05/2023 9:24 AM EDT): -Hep B viral load negative 10/2022 Hypertension 04/16/2019 Overview (11/19/2023): -Blood pressure is at goal -Continue lifestyle modifications -Continue current medications Assessment & Plan (05/19/2024 3:19 PM EDT): -Blood pressure is at goal -Continue lifestyle modifications -Continue current medications Assessment & Plan (03/18/2024 11:38 AM EDT): -Blood pressure is at goal -Continue lifestyle modifications -Continue current medications Assessment & Plan (11/19/2023 3:26 PM EDT): -Blood pressure is at goal -Continue lifestyle modifications -Continue current medications Assessment & Plan (10/28/2022 10:47 AM EDT): BP is well controlled. Deafness 12/30/2014 Overview (08/13/2023): Audiology appointment 03/02/2023. -[employer] housing management representative Nany ([facility]) STAFF ANTISUBMARINE OFFICER [phone] Assessment & Plan (05/19/2024 3:18 PM EDT): Audiology appointment 03/02/2023. -[employer] housing management representative Nany ([facility]) STAFF ANTISUBMARINE OFFICER [phone] Assessment & Plan (03/18/2024 11:35 AM EDT): Audiology appointment 03/02/2023. -[employer] housing management representative Nany ([facility]) STAFF ANTISUBMARINE OFFICER [phone] Assessment & Plan (11/19/2023 4:14 PM EDT): Audiology appointment 03/02/2023. -[employer] housing management representative Nany ([facility]) STAFF ANTISUBMARINE OFFICER [phone] Assessment & Plan (08/22/2023 9:06 AM EST): Audiology appointment 03/02/2023. -[employer] housing management representative Nany ([facility]) STAFF ANTISUBMARINE OFFICER [phone] Assessment & Plan (08/13/2023 9:48 AM EST): Audiology appointment 03/02/2023. -[employer] housing management representative Nany ([facility]) STAFF ANTISUBMARINE OFFICER [phone] Assessment & Plan (05/23/2023 1:16 PM EDT): Audiology appointment 03/02/2023. -[employer] housing management representative Nany ([facility]) STAFF ANTISUBMARINE OFFICER [phone] Assessment & Plan (02/05/2023 11:14 AM EDT): Audiology appointment 03/02/2023. [employer] with Jose Rachel Berrios STAFF ANTISUBMARINE OFFICER , text . Assessment & Plan (12/12/2022 3:02 PM EDT): Audiology appointment 03/02/2023. Insomnia 09/13/2014 S/P TURP 09/13/2014 Overview (02/05/2023): -Underwent TURP and removal of bladder stone on 05/10/[address] Jonathan henning Assessment & Plan (11/19/2023 4:14 PM EDT): -Underwent TURP and removal of bladder stone on 05/10/[address] Jonathan henning Assessment & Plan (08/22/2023 9:05 AM EST): -Underwent TURP and removal of bladder stone on 05/10/[address] Jonathan henning Assessment & Plan (08/13/2023 9:47 AM EST): -Underwent TURP and removal of bladder stone on 05/10/[address] Jonathan henning Assessment & Plan (05/23/2023 9:27 AM EDT): -Underwent TURP and removal of bladder stone on 05/10/[address] Jonathan henning Assessment & Plan (02/05/2023 9:25 AM EDT): -Underwent TURP and removal of bladder stone on 05/10/[address] Jonathan henning Abdominal pain 06/03/2012 Overview (02/06/2024): -documented as far back as 2009 -Treated for H.pylori gastritis 2009 -GI in 2014 felt some of the pain is hyperalgesia from degenerative disc disease. -Referred to GI on 09/17/2022. She has number to call for appointment. I have asked her [employer] paralegal internship to assist her. -CT 12/2021 Gallbladder surgically absent. ABDOMINAL WALL: Bilateral fat- containing inguinal hernias. -Abdominal US 02/05/22 Increased echogenicity of the liver parenchyma consistent with hepatic steatosis. No focal hepatic lesions. Status post cholecystectomy -Referral placed to GI for further evaluation and colon cancer screening 12/18/23 -CT abd done in ER 02/05/24 for abd pain no acute abnormality Assessment & Plan (12/18/2023 12:06 PM EDT): -documented as far back as 2009 -Treated for H.pylori gastritis 2009 -GI in 2014 felt some of the pain is hyperalgesia from degenerative disc disease. -Referred to GI on 09/17/2022. She has number to call for appointment. I have asked her [employer] paralegal internship to assist her. -CT 12/2021 Gallbladder surgically absent. ABDOMINAL WALL: Bilateral fat- containing inguinal hernias. -Abdominal US 02/05/22 Increased echogenicity of the liver parenchyma consistent with hepatic steatosis. No focal hepatic lesions. Status post cholecystectomy -Referral placed to GI for further evaluation and colon cancer screening 12/18/23 Assessment & Plan (11/19/2023 3:55 PM EDT): -documented as far back as 2009 -Treated for H.pylori gastritis 2009 -GI in 2014 felt some of the pain is hyperalgesia from degenerative disc disease. -Referred to GI on 09/17/2022. She has number to call for appointment. I have asked her [employer] paralegal internship to assist her. -CT 12/2021 Gallbladder surgically absent. ABDOMINAL WALL: Bilateral fat- containing inguinal hernias. -Abdominal US 02/05/22 Increased echogenicity of the liver parenchyma consistent with hepatic steatosis. No focal hepatic lesions. Status post cholecystectomy Assessment & Plan (08/22/2023 9:05 AM EST): -documented as far back as 2009 -Treated for H.pylori gastritis 2009 -GI in 2015 felt some of the pain is hyperalgesia from degenerative disc disease. -Referred to GI on 09/17/2022. She has number to call for appointment. I have asked her [employer] paralegal internship to assist her. -CT 12/2021 Gallbladder surgically absent. ABDOMINAL WALL: Bilateral fat- containing inguinal hernias. ?? -Abdominal US 02/05/22 Increased echogenicity of the liver parenchyma consistent with hepatic steatosis. No focal hepatic lesions. Status post cholecystectomy Assessment & Plan (08/13/2023 9:46 AM EST): -documented as far back as 2009 -Treated for H.pylori gastritis 2009 -GI in 2014 felt some of the pain is hyperalgesia from degenerative disc disease. -Referred to GI on 09/17/2022. She has number to call for appointment. I have asked her [employer] paralegal internship to assist her. -CT 12/2021 Gallbladder surgically absent. ABDOMINAL WALL: Bilateral fat- containing inguinal hernias. ?? -Abdominal US 02/05/22 Increased echogenicity of the liver parenchyma consistent with hepatic steatosis. No focal hepatic lesions. Status post cholecystectomy Assessment & Plan (05/23/2023 1:30 PM EDT): -documented as far back as 2009 -Treated for H.pylori gastritis 2009 -GI in 2014 felt some of the pain is hyperalgesia from degenerative disc disease. -Referred to GI on 09/17/2022. She has number to call for appointment. I have asked her [employer] paralegal internship to assist her. -CT 12/2021 Gallbladder surgically absent. ABDOMINAL WALL: Bilateral fat- containing inguinal hernias. ?? -Abdominal US 02/05/22 Increased echogenicity of the liver parenchyma consistent with hepatic steatosis. No focal hepatic lesions. Status post cholecystectomy Assessment & Plan (03/10/2023 6:53 PM EDT): -documented as far back as 2009 -Treated for H.pylori gastritis 2009 -GI in 2014 felt some of the hadye is hyperalgesia from degenerative disc disease. -Referred to GI on 09/17/2022. She has number to call for appointment. I have asked her [employer] paralegal internship to assist her. -CT 12/2021 COMPARISON: Multiple priors most recent CT abdomen pelvis 08/25/2021. FINDINGS: LUNG BASES: Unchanged linear calcification and/or scarring in the posterior right lower lobe. Visualized lung bases and mediastinum are otherwise normal. No pleural effusion.LIVER, GALLBLADDER, BILIARY TREE: The non-contrast liver is normal in size, shape, and attenuation. No focal hepatic lesion or biliary ductal dilatation is present. ??Gallbladder surgically absent. PANCREAS: Normal; no mass or surrounding fluid. ?? SPLEEN: Normal size. No focal lesion. ?? ADRENAL GLANDS: Normal; no mass. ?? KIDNEYS AND??URETERS: The kidneys are normal in size, shape, and attenuation. No hydronephrosis, hydroureter, or calculi seen. Nonspecific bilateral perinephric stranding. BLADDER: No focal mass or wall thickening seen. No bladder calculi. ?? GASTROINTESTINAL??TRACT: Stomach and small bowel non-dilated. No colonic wall thickening or pericolonic inflammatory changes. Normal appendix. ABDOMINAL WALL: Bilateral fat-containing inguinal hernias. ?? LYMPHOVASCULAR STRUCTURES: No lymphadenopathy. The aorta is normal in caliber. PELVIC VISCERA: Unremarkable. OSSEOUS STRUCTURES: Advanced multilevel degenerative disc disease in the thoracolumbar spine. No acute or suspicious osseous abnormality. -Abdominal US 02/05/22 Ab US 02/05/22 Increased echogenicity of the liver parenchyma consistent with hepatic steatosis. No focal hepatic lesions Status post cholecystectomy Assessment & Plan (02/05/2023 11:05 AM EDT): -documented as far back as 2009 -Treated for H.pylori gastritis 2009 -GI in 2014 felt some of the hayde is hyperalgesia from degenerative disc disease. -Referred to GI on 09/17/2022. Assessment & Plan (10/28/2022 10:51 AM EDT): -documented as far back as 2009 -Treated for H.pylori gastritis 2009 -GI in 2014 felt some of the hayde is hyperalgesia from degenerative disc disease. -CT abdomen 12/28/2021 o acute findings. Had multple CT scan of abdomen: 2 in 2021, 2 in 2020, 1 in 2019. Referral to GI 09/17/21. Referral was placed and the office will be contacting the Pt. Trial of omeprozole given. Assessment & Plan (09/17/2022 3:40 PM EST): CT of abdomen 12/28/21, no acute findings. Had multple CT scan of abdomen: 2 in 2021, 2 in 2020, 1 in 2019. Referral to GI 09/17/21. Trial of omeprozole given. Assessment & Plan (09/12/2022 2:18 PM EST): Referral to GI 09/12/22. Assessment & Plan (07/29/2022 11:08 AM EST): -documented as far back as 2009 -Treated for H.pylori gastritis 2009 -GI in 2014 felt some of the hayde is hyperalgesia from degenerative disc disease. -patient will need GI referral for colon candcer screening, per our past history and recent notes from Ct, pt is very high risk for no show. We will get her established with [employer] who will be able to assist her with appointments. Anxiety 06/03/2012 Assessment & Plan (03/18/2023 3:46 PM EDT): Assessment: Patient with increased anxiety (difficult to control worry and nervousness, racing thoughts) and depression (depressed mood, difficulty sleeping, decreased appetite). Symptoms are in the context of biopsychosocial stressors of housing and financial insecurity. Patient will benefit from SDOH referral and OP therapy. At this time Jacob Angeles meets criteria for Visit Diagnoses: Problem List Items Addressed This Visit Other Anxiety Personality disorder (CMS/HCC) Patient ready to address current needs Yes Strengths-Ashley is a strong advocate for herself and in the contemplation stage of change. PLAN: 1. Follow up with [facility]: Recommended for follow-up: 03/20/23 with Larissa Robertson 2. Patient goal is to engage with OP therapy and care management 3. Behavioral Recommendations a. Care management b. OP therapy Resolved Problems Problem Noted Date Diagnosed Date Resolved Date Periodontal disease 04/08/2024 07/24/20 Dental calculus 04/08/2024 07/24/2024 Gingival bleeding 04/08/2024 07/24/2024 Depression, recurrent 03/18/20242023 Urinary tract infection without hematuria 08/14/2023 07/24/2024 Overview (11/19/2023): -She was seen in ER 11/15/23 and UA had > 100,000 e. coli estevez sensitive with UA > [address] scan had normal kidneys. She was prescribed cefpodoxime 200mg BID for 14 days and has the medication with her today. -Encouraged patient to take medication 11/19/2023 Assessment & Plan (11/19/2023 3:54 PM EDT): -She was seen in ER 11/15/23 and UA had > 100,000 e. coli estevez sensitive with UA > [address] scan had normal kidneys. She was prescribed cefpodoxime 200mg BID for 14 days and has the medication with her today. -Encouraged patient to take medication 11/19/2023 Disruptive behavior 05/23/2023 07/24/20 Dental caries 11/27/2022 07/24/2024 Routine screening for STI (s exually transmitted infection) 07/29/2022 10/28/2022 Epigastric pain 03/27/2022 07/29/2022 Abnormal urine 11/28/2021 07/29/2022 Acute cystitis without hematuria 08/08/2021 07/29/2022 Vertigo 01/29/2020 10/28/2022 Acute respiratory failure with hypoxia 04/16/2019 07/29/2022 Anxiety and depression 04/16/201904/07 Dyspnea 04/16/2019 07/29/2022 Sepsis 04/16/2019 07/29/2022 Urinary tract obstruction 03/21/2017 Gastroesophageal reflux dise ase without esophagitis 12/30/2014 07/29/2022 Gall stone 09/13/2014 07/25/2022 Overview (07/25/2022): Had Laparoscopic Cholycystectomy done 10/04/[address] Jj Brandon Gender identity disorder 06/03/201209/2022 Hearing loss 06/03/2012 07/29/2022 Encounters Date Type Department Care Team Description 08/19/2024 Telephone [facility] MEDICINE [address] [place] [phone] Ligia Becerra MD Nurse Triage 08/13/2024 Telephone [facility] [address] [place] [address] Rodriguez [place], [place] September08/12/2024 Telephone [facility] [address] [place] [address] [place] September Recall 07/30/2024 10:20 AM EST Office Visit [facility] [address] [place] [phone] Ervin Covarrubias MD Chronic bilateral thoracic back pain (Primary Dx); Chronic bilateral low back pain without sciatica; Acute bilateral low back pain without sciatica 07/30/2024 Telephone [facility] [address] [place] [phone] Margarita Velarde, VIRGIE Colonoscopy Results 07/02/24; [facility] MRI 07/30/2024 Travel 07/30/2024 Telephone [facility] MEDICINE [address] [place] [phone] Ligia Becerra MD No Show 07/29/2024 Telephone [facility] MEDICINE [address] [place] [phone] Gareth Chavarria [place] UBER request 07/26/[address] [phone] Ligia Becerra MD Nurse Triage 07/24/2024 Telephone [facility] MEDICINE [address] [place] [phone] Ligia Becerra MD Record Request 07/24/2024 Orders Only [facility] MEDICINE [address] [place] [phone] Ligia Becerra MD Benign prostatic hyperplasia with urinary retention (Primary Dx) 07/01/2024 Telephone [facility] MEDICINE [address] [place] [phone] Ligia Becerra MD 06/28/2024 Telephone [facility] MEDICINE [address] [place] [phone] [place], [place] Durable Medical Equipment 06/28/2024 Telephone [facility] ADULT DENTAL [address] [place] [address] Ankit Duncanaris 06/17/2024 Telephone [facility] MEDICINE [address] [place] [address] Rodriguez [place], [place] Durable Medical Equipment 06/17/2024 Orders Only [facility] [address] [place] [address] Ligia Becerra MD Chronic bilateral thoracic back pain (Primary Dx); Bilateral deafness 06/08/2024 Telephone [facility] MEDICINE [address] [address], [place] [phone] Ligia Becerra MD Call Back Request from Last 3 Months Immunizations Name Administration Dates Next Due Influenza High-dose Quadriva lent Preservative Free 05/23/2023 Influenza injectable quadriv alent IIV4 with preservative 06/28/2021,05/16/2021,03/25/2020 Influenza injectable quadriv alent preservative free 07/29/2022,06/22/2015 Influenza, High Dose Seasona l, Preservative Free 05/14/2024 Influenza, IIV3, injectable 05/12/2013,0 09/03/2012,06/07/2011,04/20 Influenza, Split (incl. georgette fied surface antigen) 06/03/2012 Moderna Covid-19 Vaccine 12+ 12/08/2020 Pfizer Covid-19 Vaccine 12+ 05/19/2024, Pfizer Covid-19 Vaccine 12+ Bivalent 06/24/2022 Pneumococcal Conjugate PCV 20 05/23/2023 Pneumococcal Polysaccharide PPSV23 09/03/2012 RSV Bivalent 08/22/2023 TD (adult), 2 Lf tetanus tox oid, preservative free, adsorbed 09/05/2012 Tdap 08/15/2022,06/22/2015 Zoster, Recombinant 04/06/2024,08/22/2023 Family History Medical History Relation Name Comments Hypertension Sister Relation Name Status Comments Sister Social History Tobacco Use Types Packs/Day Years Used Date Smoking Tobacco: Never Passive Smoke Exposure: Never Smokeless Tobacco: Never Tobacco Cessation:Counseling Given: Not Answered Alcohol Use Standard Drinks/Week Comments Never 0 [...] not to disclose 2021 10:16 AM EDT Last Filed Vital Signs Vital Sign Reading Time Taken Comments Blood Pressure 135/75 07/30/2024 10:17 AM EST Pulse 54 07/30/2024 10:17 AM EST Temperature 36.4 ??C (97.5 ??F) 07/30/2024 1 0:17 AM EST Respiratory Rate 18 07/30/2024 10:1 7 AM EST Oxygen Saturation 98% 07/30/2024 10: 17 AM EST Inhaled Oxygen Concentration - - Weight 86.5 kg (190 lb 12.8 oz) 024 11:17 AM EDT Height 162.6 cm (5' 4 ) 05/22/2024 11:1 7 AM EDT Body Mass Index 32.75 05/22/2024 11:17 AM EDT Plan of Treatment Upcoming Encounters Date Type Department Care Team (Late st Contact Info) Description 09/20/2024 9:45 AM EST Office Visit [facility] MEDICINE [address], [place] [phone] Ligia Becerra MD [address] [place], [place] [phone] Health Maintenance Due Date Last Done Comments Anal Pap 1958 CT Colonography 1958 FIT DNA/Cologuard 1958 FIT 1958 FOBT 1960 Sigmoidoscopy 1960 Hepatitis A Vaccines (1 of 2 - Risk 2-dose series) 1977 Hepatitis B Vaccines (1 of 3 - Risk 3-dose series) 2018 Colonoscopy 12/02/2019 12/01/2009 Colorectal Cancer Screening 12/02/2019 SDOH Screening 05/23/2024 05/23/2023 Dental Oral Exam 10/09/2024 04/08/2024 Dental Prophylaxis 10/09/2024 04/08/2024 Depression Screening 03/18/2025 03/18/2024, 03/18/20 24 Dental X-Ray: Bitewings 04/09/2025 04/08/2024, 11/13 Alcohol/Substance Use Screening 05/19/2025 05/19/2024 Dental X-Ray: Full Mouth 05/23/2025 05/22/2022 Tobacco Screening 07/30/2025 07/30/2024 Lipid Panel 07/29/2027 07/29/2022 DTaP/Tdap/Td Vaccines (3 - Td or Tdap) 08/15/2032 08/15/2022, 06/22/2015, 09/05/2012 Hepatitis C Screening Completed 07/29/2022 Pneumococcal Vaccine: 65+ Years Completed 05/23/2023, 09/03/2012 RSV Patients and Patients Aged 60 years or older Completed 08/22/2023 Zoster Vaccines Completed 04/06/2024, 08/22/2023 Influenza Vaccine Completed 05/14/2024, , 07/29/2022, Additional history exists COVID-19 Vaccine Completed 05/19/2024, 11/2023, 06/24/2022, Additional history exists HIB Vaccines Aged Out No longer eligi ble based on patient's age to complete this topic HPV Vaccines Aged Out No longer eligi ble based on patient's age to complete this topic IPV Vaccines Aged Out No longer eligi ble based on patient's age to complete this topic Meningococcal Vaccine Aged Out No shelton kirsten eligible based on patient's age to complete this topic RSV under 20 months Aged Out No longe r eligible based on patient's age to complete this topic Rotavirus Vaccines Aged Out No longer eligible based on patient's age to complete this topic Procedures Procedure Name Priority Date/Time Associated Diagnosis Comments PROPHYLAXIS - ADULT Routine 04/08/2024 3 :00 PM EDT Periodontal disease Dental calculus Gingival bleeding BITEWINGS - 4 RADIOGRAPHIC IMAGES Routine 04/08/2024 3:00 PM EDT Periodontal disease Dental calculus Gingival bleeding PERIODIC ORAL EVALUATION - ESTABLISHED PATIENT Routine 04/08/2024 3:00 PM EDT HEPATITIS C AB W/REFL TO HCV RNA, QN, PCR Routine 07/29/2022 11:16 AM EST Hepatitis B core antibody positive Routine screening for STI (sexually transmitted infection) LIPID PANEL, STANDARD Routine 07/29/2022 11:16 AM EST Primary hypertension COLONOSCOPY Routine 12/01/2009 from Last 3 Months or Most Recently Relevant to Health Maintenance Results * Hepatitis C Antibody with Reflex to HCV, RNA, Quantitative, Real-Time PCR (07/29/2022 11:16 AM EST) Hepatitis C Antibody NON-REACT MOE NON-REACT MOE [place] Index 0.06 <1.00 [facility] Comment: HCV antibody was non-reactive. There is no laboratory evidence of HCV infection. In most cases, no further action is required. However, if recent HCV exposure is suspected, a test for HCV RNA (test code 87828) is suggested. For additional information please refer to http://[employer] Point[employer]/faq/TTW15g6 (This link is being provided for informational/ educational purposes only.) Blood Venous blood specimen / Unknown 07/29/2022 11:16 AM EST 07/29/2022 11:17 AM EST Narrative [facility] - 08/02/2022 10:49 PM EST FASTING:YES FASTING: YES us Ligia Becerra MD LAB BLOOD ORDERABLES Final Result [facility] [address], [place] [address] [employer] [place] [employer] [address] [facility], ([address]) [place] [address] * (ABNORMAL) Lipid Panel, Standard (07/29/2022 11:16 AM EST) Cholesterol, Total 130 <200 mg/dL [facility] [place] [employer] HDL Cholesterol 29(L) > OR = 40 mg/dL [employer] [place] [employer] Triglycerides 80 <150 mg/dL [employer] [place] [employer] LDL Cholesterol 84 mg/dL (calc) [employer] [place] [employer] Comment: Reference range: <100 Desirable range <100 mg/dL for primary prevention; ?? <70 mg/dL for patients with CHD or diabetic patients with > or = 2 CHD risk factors. LDL-C is now calculated using the Barrington-Kadi calculation, which is a validated novel method providing better accuracy than the Friedewald equation in the estimation of LDL-C. Barrington SS et al. EITAN. 2013;310(19): 2671-2544 (http://[employer] Point[employer]/faq/JGS561) Chol/HDLC Ratio 4.5 <5.0 (calc) [employer] [place] [employer] Non-HDL Cholesterol 101 <130 mg/dL (calc) [employer] [place] [employer] Comment: For patients with diabetes plus 1 major ASCVD risk factor, treating to a non-HDL-C goal of <100 mg/dL (LDL-C of <70 mg/dL) is considered a therapeutic option. Blood Venous blood specimen / Unknown 07/29/2022 11:16 AM EST 07/29/2022 11:17 AM EST Narrative [facility] - 08/02/2022 10:49 PM EST FASTING:YES FASTING: YES Ligia Becerra MD LAB BLOOD ORDERABLES Final Result [facility] [address] [facility] [place] [address] [facility] [address] [facility], ([address]) [place] [address] * Colonoscopy (12/01/2009) Anatomical Region Laterality Modality Endoscopy 12/01/2009 Ligia Becerra MD ENDOSCOPY PROCEDURE ORDERA BLES Final Result from Last 3 Months or Most Recently Relevant to Health [place] [id number] [facility] [place] [facility] [place] [facility] [place] - [facility] Advance Directives Documents on File Type Date Recorded Patient Hand Grinder Expl anation Advance Directives and Living Will 03/23/2024 10:24 AM Health Care Proxy Care Teams Review Specialist Relationship Specialty Start Date End Date [place], [place] Ligia [address] [place] [address] PCP - General Family Medicine 07/22/22 Jair Pro MD [address] [place] [address] Drive [address] [place] [address] Urology 07/24/24 Tim Nolen [address] [place] [address] Neurosurgery 07/24/24
--- OUTSIDE RECORDS SUMMARY | 2024-09-06 17:11 | XMS_ITS | Encounter Summary ---
Author Organization [employer] Address [address] [place] [address] Care Team Providers Care Advertising Assistant Name Role Phone Ligia Becerra MD Primary Care Provider +[phone]- [phone] Jair Pro MD Unavailable [phone] Tim Herrera Unavailable [phone] Reason for Referral * Consultation (Routine) - Closed Specialty Diagnoses / Procedures Referred By Contac t Referred To Contact Physical Therapy Diagnoses Chronic bilateral thoracic back pain Bilateral deafness Ligia Becerra MD [address] [place] [address] Phone: tel: fax: [facility] [address] [place], [place] Phone: tel: fax: Referral ID Status Reason Start Date Expiration Date V isits Requested Visits Authorized [id number] Closed Specialty Services Required 06/22/2024 06/22/2025 1 1 Encounter Details Date Type Department Care Team (Late st Contact Info) Description 06/17/2024 Orders Only [facility] [address] [place] [address] Ligia Becerra MD [address] [place] [address] Chronic bilateral thoracic back pain (Primary Dx); Bilateral deafness Social History Tobacco Use Types Packs/Day Years [...] Description 09/20/2024 9:45 AM EST Office Visit [facility] [address] [place] [address] Ligia Becerra MD [address] [place] [address] Scheduled Referrals Name Type Priority Associated Diagnoses Orde r Schedule Referral to Physical Therapy Outpatient Referral Routine Chronic bilateral thoracic back pain Bilateral deafness Expected: 06/17/2024 (Approximate), Expires: 06/17/2025 documented as of this encounter Visit Diagnoses Diagnosis Chronic bilateral thoracic back pain- Primary Bilateral deafness Unspecified hearing loss Benign prostatic hyperplasia with urinary frequency- Primary Abdominal pain, unspecified abdominal location Personality disorder (CMS/HCC) Unspecified personality disorder Class 2 severe obesity due to excess calories with serious comorbidity in adult, unspecified BMI (CMS/HCC) Dietary counseling Dietary surveillance and counseling Exercise counseling documented in this encounter Additional Health Concerns Assessment Noted Time PHQ-9 Depression Total Score: 3 03/18/20 24 11:59 AM EDT documented as of this encounter Care Teams Advertising Assistant Relationship Specialty Start Date End Date Ligia Becerra MD [address] [place] [address] PCP - General Family Medicine 07/22/22 Jair Pro MD [address] [place] [address] Urology 07/24/24 Tim Herrera [address] [place] [address] Neurosurgery 07/24/24 documented as of this encounter
--- OUTSIDE RECORDS SUMMARY | 2024-09-06 17:11 | XMS_ITS | Encounter Summary ---
Author Organization [employer] Address [address] [place] [address] Care Team Providers Care Management Consulting Name Role Phone Ligia Becerra MD Primary Care Provider [phone]- [phone] Jair Pro MD Unavailable Tim Herrera Unavailable Encounter Details Date Type Department Care Team (Late Contact Info) Description 08/13/2022 Orders Only [facility] [address] [place] [address] Ligia Becerra MD [address] [place] [address] [phone] Social History Tobacco Use Types Packs/Day Years Used Date Smoking Tobacco: Never Assessed Sex and Gender Information Value Date Recorded [...] suspected to have Coronavirus/COVID-19? No / Unsure 07/29/2022 9:13 AM EST documented as of this encounter Plan of Treatment Upcoming Encounters Date Type Department Care Team (Late Contact Info) Description 09/20/2024 9:45 AM EST Office Visit [facility] [address] [place] [address] Ligia Becerra MD [address] [place] [address] documented as of this encounter Visit Diagnoses Not on filedocumented in this encounter Care Teams Management Consulting Relationship Specialty Start Date End Date Ligia Becerra MD [address] [place] [address] PCP - General Family Medicine 07/22/22 Jair Pro MD [address] [place] [address] Urology 07/24/24 Tim Herrera [address] [place] [address] Neurosurgery 07/24/24 documented as of this encounter
--- OUTSIDE RECORDS SUMMARY | 2024-09-06 17:11 | XMS_ITS | Encounter Summary ---
Author Organization [employer] Address [address] [facility] [address] [place] [address] Care Team Providers Care Research Consultant Name Role Phone Ligia Becerra MD Primary Care Provider [phone]- [phone] Jair Pro MD Unavailable [phone] Tim Herrera Unavailable [phone] Encounter Details Date Type Department Care Team (Late st Contact Info) Description 11/01/2022 Orders Only [facility] [address] [place] [address] Ligia Becerra MD [address] [place], [place] [phone] Bilateral deafness (Primary Dx) Social History Tobacco Use Types Packs/Day Years [...] suspected to have Coronavirus/COVID-19? No / Unsure 10/30/2022 10:53 AM EDT documented as of this encounter Plan of Treatment Upcoming Encounters Date Type Department Care Team (Late st Contact Info) Description 09/20/2024 9:45 AM EST Office Visit [facility] [address] [place] [address] Ligia Becerra MD [address] [place] [address] documented as of this encounter Visit Diagnoses Diagnosis Bilateral deafness- Primary Unspecified hearing loss Benign prostatic hyperplasia with urinary frequency- Primary Abdominal pain, unspecified abdominal location Personality disorder (CMS/HCC) Unspecified personality disorder Class 2 severe obesity due to excess calories with serious comorbidity in adult, unspecified BMI (CMS/HCC) Dietary counseling Dietary surveillance and counseling Exercise counseling documented in this encounter Care Teams Research Consultant Relationship Specialty Start Date End Date Ligia Becerra MD [address] [place] [address] PCP - General Family Medicine 07/22/22 Jair Pro MD [address] [place] [address] Urology 07/24/24 Tim Herrera [address] [place] [address] Neurosurgery 07/24/24 documented as of this encounter
--- OUTSIDE RECORDS SUMMARY | 2024-09-06 17:11 | XMS_ITS | Encounter Summary ---
Author Organization [employer] Address [address] 7t [place] [address] Care Team Providers Care Direct Support Staff Member Name Role Phone Ligia Becerra MD Primary Care Provider [phone]- [phone] Jair Pro MD Unavailable [phone] Tim Herrera Unavailable [phone] Reason for Visit * Reason Onset Date Comments Referral 07/11/2023 Encounter Details Date Type Department Care Team (Late st Contact Info) Description 07/11/2023 Telephone [facility] [address] [place] [address] [phone] Ligia Becerra MD [address] [place], [place] [phone] Referral Social History Tobacco Use Types Packs/Day Years [...] encounter Miscellaneous Notes * Telephone Encounter - Presley Sanchez - 07/11/2023 11:56 AM EST Tc from pt requesting a PT-1 , states they have an upcoming up. PT-1 Date: 07/14/23 Time: 12pm Visits: n/a Address: [address] [place] [address] Facility: [facility] Wheel Chair: No Radio Installer Automobile Needed: No Please contact at [phone] documented in this encounter Plan of Treatment Upcoming Encounters Date Type Department Care Team ([facility] Contact Info) Description 09/20/2024 9:45 AM EST Office Visit [facility] [address] [place] [address] Ligia Becerra MD [address] [place], [place] [phone] documented as of this encounter Visit Diagnoses Not on filedocumented in this encounter Additional Health Concerns Assessment Noted Time PHQ-9 Depression Total Score: 18 023 3:56 PM EDT documented as of this encounter Care Teams Direct Support Staff Member Relationship Specialty Start Date End Date Ligia Becerra MD [address] [place] [address] PCP - General Family Medicine 07/22/22 Jair Pro MD [address] [place] [address] Urology 07/24/24 Tim Herrera [address] [place] [address] Neurosurgery 07/24/24 documented as of this encounter
--- OUTSIDE RECORDS SUMMARY | 2024-09-06 17:11 | XMS_ITS | Encounter Summary ---
Author Organization [employer] Address [address] 7[address] [place] [address] Care Team Providers Care Scallop Cutter Name Role Phone Ligia Becerra MD Primary Care Provider [phone]- [phone] Jair Pro MD Unavailable [phone] Tim Herrera Unavailable [phone] Reason for Visit * Reason Onset Date Comments Durable Medical Equipment 03/22/2024 Encounter Details Date Type Department Care Team (Late st Contact Info) Description 03/22/2024 Telephone [facility] [address] [place], [place] [phone] Ligia Becerra MD [address] [place], [place] [phone] Durable Medical Equipment Social History Tobacco Use [...] * Telephone Encounter - Keven Brandt - 03/22/2024 4:38 PM EDT Tc from pt requesting status on DME: Portable toilet Blue bathing wipes Sopra Cream Recliner Please contact pt at [phone] documented in this encounter Plan of Treatment Upcoming Encounters Date Type Department Care Team (Late st Contact Info) Description 09/20/2024 9:45 AM EST Office Visit [facility] [address] [place] [address] Ligia Becerra MD [address] [place] [address] documented as of this encounter Visit Diagnoses Not on filedocumented in this encounter Additional Health Concerns Assessment Noted Time PHQ-9 Depression Total Score: 3 03/18/20 24 11:59 AM EDT documented as of this encounter Care Teams Scallop Cutter Relationship Specialty Start Date End Date Ligia Becerra MD [address] [place] [address] PCP - General Family Medicine 07/22/22 Jair Pro MD [address] [place] [address] Urology 07/24/24 Tim Herrera [address] [place] [address] Neurosurgery 07/24/24 documented as of this encounter
--- OUTSIDE RECORDS SUMMARY | 2024-09-06 17:11 | XMS_ITS | Encounter Summary ---
Author Organization [employer] Address [address] [facility] [address] [address] 7t [place] [address] Care Team Providers Care Parts Picker Name Role Phone Ligia Becerra MD Primary Care Provider [phone]- [phone] Jair Pro MD Unavailable [phone] Tim Herrera Unavailable [phone] Reason for Visit * Reason Onset Date Comments Created in error 04/09/2024 Encounter Details Date Type Department Care Team (Late st Contact Info) Description 04/09/2024 Telephone [facility]INE [address] [place], [place] [phone] Ligia Becerra MD [address] [place], [place] [phone] Created in error Social History Tobacco Use Types Packs/Day Years [...] Description 09/20/2024 9:45 AM EST Office Visit [facility] [address] [place] [address] Ligia Becerra MD [address] [place] [address] documented as of this encounter Visit Diagnoses Not on filedocumented in this encounter Additional Health Concerns Assessment Noted Time PHQ-9 Depression Total Score: 3 03/18/20 24 11:59 AM EDT documented as of this encounter Care Teams Parts Picker Relationship Specialty Start Date End Date Ligia Becerra MD [address] [place] [address] PCP - General Family Medicine 07/22/22 Jair Pro MD [address] [place] [address] Urology 07/24/24 Tim Herrera [address] [place] [address] Neurosurgery 07/24/24 documented as of this encounter
--- OUTSIDE RECORDS SUMMARY | 2024-09-06 17:11 | XMS_ITS | Encounter Summary ---
Author Organization [employer] Address [address] 7[address] [place] [address] Care Team Providers Care Manager Nuclear Name Role Phone Ligia Becerra MD Primary Care Provider + [phone] Jair Pro MD Unavailable [phone] Tim Herrera Unavailable [phone] Encounter Details Date Type Department Care Team (Latest Contact Info) Description 06/19/2022 Abstract [facility] CONVERSIONS Dental, Provider, DDS Social History Tobacco Use Types Packs/Day Years [...] Description 09/20/2024 9:45 AM EST Office Visit [facility] [address] [place] [address] Ligia Becerra MD [address] [place] [address] [phone] documented as of this encounter Visit Diagnoses Not on filedocumented in this encounter Care Teams Manager Nuclear Relationship Specialty Start Date End Date Ligia Becerra MD [address] [place] [address] [phone] PCP - General Family Medicine 07/22/22 Jair Pro MD [address] [place] [address] Urology 07/24/24 Tim Herrera [address] [place] [address] Neurosurgery 07/24/24 documented as of this encounter
--- OUTSIDE RECORDS SUMMARY | 2024-09-06 17:11 | XMS_ITS | Clinical Summary ---
Author Organization [facility] it Address [address] [place] [address] Care Team Providers Care Psychiatric Lpn Name Role Phone Unavailable Primary Care Provider Unavailabl e Social History Tobacco Use Types Packs/Day Years Used Date Smoking Tobacco: Never Assessed Sex and Gender Information Value Date Recorded Sex Assigned at Not on file Gender Identity Not on file Sexual Orientation Not on file Plan of Treatment Health Maintenance Due Date Last Done Comments DTaP,Tdap,and Td Vaccines (1 - Tdap) 1977 Zoster Vaccines (1 of 2) 02/09/2008 Abdominal Aortic Aneurysm (A AA) Screen 07/09/2022 Cholesterol Screening (Lipid Panel) 07/09/2022 Colorectal Cancer Screening: Colonoscopy 07/09/2022 Depression Screening 07/09/2022 Hepatitis C Screening 07/09/2022 Social Influencers of Health Screening 07/09/2022 Falls Risk Assessment 2023 Pneumococcal Vaccine: 65+ Ye ars (1 of 1 - PCV) 2023 COVID-19 Vaccine (1 - 2023-2 5 season) 2024 Influenza Vaccine (#1) 2024 RSV Immunization Patients 60 + Years Old (1 - 1-dose 75+ series) 2033 HIB Vaccines Aged Out No longer eligi ble based on patient's age to complete this topic HPV Vaccines Aged Out No longer eligi ble based on patient's age to complete this topic Hepatitis A Vaccines Aged Out No long er eligible based on patient's age to complete this topic Hepatitis B Vaccines Aged Out No long er eligible based on patient's age to complete this topic IPV Vaccines Aged Out No longer eligi ble based on patient's age to complete this topic MMR Vaccines Aged Out No longer eligi ble based on patient's age to complete this topic Meningococcal ACWY Vaccine Aged Out N o longer eligible based on patient's age to complete this topic RSV Immunization Patients Un angie 20 months Aged Out No longer eligible b ased on patient's age to complete this topic Varicella Vaccines Aged Out No longer eligible based on patient's age to complete this topic
--- OUTSIDE RECORDS SUMMARY | 2024-09-06 17:11 | XMS_ITS | Encounter Summary ---
Author Organization [employer] Address [address] [place] [address] Care Team Providers Care International Freight Forwarder Name Role Phone Ligia Becerra MD Primary Care Provider [phone]- [phone] Jair Pro MD Unavailable [phone] Tim Herrera Unavailable [phone] Encounter Details Date Type Department Care Team ([facility] st Contact Info) Description 07/30/[address] [facility] [address] [place], [place] [phone] Ligia Becerra MD [address] [place], [place] [phone] Social History Tobacco Use Types Packs/Day Years [...] * Telephone Encounter - Don Cerrato - 07/30/2023 9:26 AM EST \ documented in this encounter Plan of Treatment Upcoming Encounters Date Type Department Care Team (Late st Contact Info) Description 09/20/2024 9:45 AM EST Office Visit [facility] [address] [place] [address] Ligia Becerra MD [address] [place] [address] documented as of this encounter Visit Diagnoses Not on filedocumented in this encounter Additional Health Concerns Assessment Noted Time PHQ-9 Depression Total Score: 18 023 3:56 PM EDT documented as of this encounter Care Teams International Freight Forwarder Relationship Specialty Start Date End Date Ligia Becerra MD [address] [place] [address] PCP - General Family Medicine 07/22/22 Jair Pro MD [address] [place] [address] Urology 07/24/24 Tim Herrera [address] [place] [address] Drive [address] [place] [address] Neurosurgery 07/24/24 documented as of this encounter
--- OUTSIDE RECORDS SUMMARY | 2024-09-06 17:11 | XMS_ITS | Encounter Summary ---
Author Organization [employer] Address [address] [place] [address] Care Team Providers Care It Communications Specialist Name Role Phone Ligia Becerra MD Primary Care Provider [phone]- [phone] Jair Pro MD Unavailable [phone] Tim Herrera Unavailable [phone] Reason for Visit * Reason Onset Date Comments returnin call back 09/17/2022 Encounter Details Date Type Department Care Team (Late st Contact Info) Description 09/17/2022 Telephone [facility] MEDICINE [address] [place] [address] [phone] Ligia Becerra MD [address] [place], [place] [phone] returnin call back Social History Tobacco Use Types Packs/Day Years [...] * Telephone Encounter - Don Cerrato - 09/17/2022 1:25 PM EST Tc from pt returning phone call, investment underwriter see's that provider would like to schedule a 30 min appt inperson with pt. Please contact pt at [phone] documented in this encounter Plan of Treatment Upcoming Encounters Date Type Department Care Team (Late st Contact Info) Description 09/20/2024 9:45 AM EST Office Visit [facility] [address] [place] [address] Ligia Becerra MD [address] [place] [address] documented as of this encounter Visit Diagnoses Not on filedocumented in this encounter Care Teams It Communications Specialist Relationship Specialty Start Date End Date Ligia Becerra MD [address] [place] [address] PCP - General Family Medicine 07/22/22 Jair Pro MD [address] [place] [address] Urology 07/24/24 Tim Herrera [address] [place] [address] Neurosurgery 07/24/24 documented as of this encounter
--- OUTSIDE RECORDS SUMMARY | 2024-09-06 17:11 | XMS_ITS | Encounter Summary ---
Author Organization [employer] Address [address] [facility] [address] 7t [place] [address] Care Team Providers Care Him Tech Name Role Phone Ligia Becerra MD Primary Care Provider +1- [phone] Jair Pro MD Unavailable [phone] Tim Herrera Unavailable Reason for Visit * Reason Onset Date Comments Durable Medical Equipment 02/25/2024 Encounter Details Date Type Department Care Team (Late st Contact Info) Description 02/25/2024 Telephone [facility] [address] [place], [place] [phone] Ligia Becerra MD [address] [place], [place] [phone] Durable Medical Equipment Social History Tobacco Use [...] * Telephone Encounter - Presley Sanchez - 02/25/2024 3:39 PM EDT Tc from pt requesting a portable toilet due to Urinary incontinence , blue bathing wipes and sobra cream for pain relief. Please contact at [phone] ASL documented in this encounter Plan of Treatment Upcoming Encounters Date Type Department Care Team (Late st Contact Info) Description 09/20/2024 9:45 AM EST Office Visit [facility] 230 [place] [address] Ligia Becerra MD [address] [place] [address] documented as of this encounter Visit Diagnoses Not on filedocumented in this encounter Additional Health Concerns Assessment Noted Time PHQ-9 Depression Total Score: 18 023 3:56 PM EDT documented as of this encounter Care Teams Him Tech Relationship Specialty Start Date End Date Ligia Becerra MD [address] [place] [address] PCP - General Family Medicine 07/22/22 Jair Pro MD [address] [place] [address] Urology 07/24/24 Tim Herrera [address] [place] [address] Neurosurgery 07/24/24 documented as of this encounter
--- OUTSIDE RECORDS SUMMARY | 2024-09-06 17:12 | XMS_ITS | Encounter Summary ---
Author Organization [employer] Address [address] [facility] [address] 7[address] [place] [address] Care Team Providers Care It Security Architect Name Role Phone Ligia Becerra MD Primary Care Provider [phone]- [phone] Jair Pro MD Unavailable [phone] Tim Herrera Unavailable [phone] Reason for Visit * Reason Onset Date Comments Nurse Triage 08/15/2023 Encounter Details Date Type Department Care Team (Late st Contact Info) Description 08/15/2023 Telephone [facility]INE 230 [place], [place] [phone] Ligia Becerra MD 230 [place], [place] [phone] Nurse Triage Social History Tobacco Use Types [...] encounter Miscellaneous Notes * Telephone Encounter - Agus Perera - 08/15/2023 1:41 PM EST Symptom: Urination Pain Outcome: Schedule an urgent appointment (within 1 hour) or talk to a nurse or provider soon Reason: Can't pass urine (can't pee) The caller accepted this outcome documented in this encounter Plan of Treatment Upcoming Encounters Date Type Department Care Team (Late st Contact Info) Description 09/20/2024 9:45 AM EST Office Visit [facility] [address] [place] [address] Ligia Becerra MD [address] [place] [address] documented as of this encounter Visit Diagnoses Not on filedocumented in this encounter Additional Health Concerns Assessment Noted Time PHQ-9 Depression Total Score: 18 023 3:56 PM EDT documented as of this encounter Care Teams It Security Architect Relationship Specialty Start Date End Date Ligia Becerra MD [address] [place] [address] PCP - General Family Medicine 07/22/22 Jair Pro MD [address] [place] [address] Urology 07/24/24 Tim Herrera [address] [place] [address] Neurosurgery 07/24/24 documented as of this encounter
--- OUTSIDE RECORDS SUMMARY | 2024-09-06 17:12 | XMS_ITS | Encounter Summary ---
Author Organization [employer] Address [address] [facility] [address] 7t [place] [address] Care Team Providers Care Assigner Name Role Phone Ligia Becerra MD Primary Care Provider [phone]- [phone] Jair Pro MD Unavailable [phone] Tim Herrera Unavailable Reason for Visit * Reason Onset Date Comments Call back request 08/14/2023 Encounter Details Date Type Department Care Team (Late st Contact Info) Description 08/14/2023 Telephone [facility] 230 [place], [place] [phone] Ligia Becerra MD 230 [place], [place] [phone] Call back request Social History Tobacco Use Types Packs/Day Years [...] * Telephone Encounter - Keven Brandt - 08/14/2023 3:00 PM EST Tc from pt via [employer] interpretor #[id number] requesting call back wanting to speak with provider. Pt didn't want to information regarding the call, she stated pcp knows what's going on. Please contact pt at [phone]. documented in this encounter Plan of Treatment Upcoming Encounters Date Type Department Care Team (Late st Contact Info) Description 09/20/2024 9:45 AM EST Office Visit [facility] [address] [place] [address] Ligia Becerra MD 230 [place] [address] documented as of this encounter Visit Diagnoses Not on filedocumented in this encounter Additional Health Concerns Assessment Noted Time PHQ-9 Depression Total Score: 18 023 3:56 PM EDT documented as of this encounter Care Teams Assigner Relationship Specialty Start Date End Date Ligia Becerra MD [address] [place] [address] PCP - General Family Medicine 07/22/22 Jair Pro MD [address] [place] [address] Urology 07/24/24 Tim Herrera [address] [place] [address] Neurosurgery 07/24/24 documented as of this encounter
== END 2024-09-06 14:04 | disposition home or self-care (01) ==
PROVIDERS: PCP Internal Medicine; Visit Provider Physician Assistant
DX: M48.062 Spinal stenosis, lumbar region with neurogenic claudication (principal)
CPT/HCPCS: 99213

== ENCOUNTER → 2024-09-06 12:22 | Outpatient (BNVA) | payer OTHER, SELFPAY | PROVIDERS: PCP Internal Medicine; Visit Provider Physician Assistant | DX: M48.062 Spinal stenosis, lumbar region with neurogenic claudication (principal) | CPT/HCPCS: 99212 ==

== ENCOUNTER 2024-11-08 16:16 | Outpatient (REF) | payer OTHER, SELFPAY ==
--- NOTE | ~2024-11-08 | MR_ITS ---
EXAMINATION: MR LUMBAR SPINE WITHOUT CONTRAST CLINICAL INFORMATION: Spinal stenosis, lumbar region with neurogenic claudication. COMPARISON: None available. TECHNIQUE: MRI of the lumbar spine was obtained using routine sequences without contrast. FINDINGS: Left rib-bearing vertebra labeled T12. Multilevel marginal osteophyte formation and endplate irregularity with the disc desiccation, T10-11 to L5-S1. S-shaped curvature of the lumbar spine which could be positional. Bone marrow inhomogeneity. No bone marrow STIR signal abnormality. Modic type II endplate changes at T12-L1 and L4-5 levels. Grade 1 retrolisthesis, L1 to, L2-3 and L3-4 levels. Focal hyperintense T2 signal in the posterior intervertebral disc L2-3 likely focal annular fissure. Conus medullaris ends at intervertebral disc T12-L1 with normal signal. T11-12: Broad-based disc bulging. Facet joint hypertrophy. Reduced AP diameter of the thecal sac abutting the cord. Bilateral neuroforamina narrowing. T12-L1: Broad-based disc bulging. Facet joint hypertrophy. Reduced AP diameter of the thecal sac. Left neuroforamina and stenosis on a degenerative basis. L1-2: Broad-based disc bulging. Facet joint and ligamentum flavum hypertrophy. Reduced AP diameter of the thecal sac and left neuroforamina narrowing. L2-3: Broad-based disc bulging. Facet joint and ligamentum flavum hypertrophy. CSF effacement of the thecal sac and central spinal canal stenosis. Bilateral, left greater than the right neuroforamina stenosis likely encroaching the exiting nerve root. L3-4: Broad-based disc bulging. Facet joint and ligamentum flavum hypertrophy. Reduced AP diameter of the thecal sac and neuroforamina encroaching the neural elements. L4-5: Broad-based disc bulging, facet joint ligamentum flavum hypertrophy. CSF effacement of the thecal sac. Central spinal canal stenosis and bilateral neuroforamina stenosis compressing the neural elements. L5-S1: Broad-based disc bulging. Facet joint hypertrophy. Reduced AP diameter of the thecal sac. Bilateral neuroforamina stenosis left greater than the right compressing the exiting roots. No prevertebral compartment hematoma, mass or fluid collection. Asymmetric mild volume loss of the right psoas muscle. Fatty atrophy of the lower lumbar muscles from L4 to sacrum. MR/MR lumbar spine wo con IMPRESSION: Multilevel thoracolumbar spondylosis resulting in central spinal canal and neuroforamina stenosis more conspicuous at L4-5 and to a lesser extent in L3-4, L5-S1 and L2-3 levels. Electronically signed by: Lance Chang MD 11/09/2024 09:03 AM EDT
--- OUTSIDE RECORDS SUMMARY | 2024-11-08 17:55 | XMS_ITS | Encounter Summary ---
Author Organization [employer] Address 75 [facility] 7t [place] [address] Care Team Providers Care Waste Elimination Name Role Phone Ligia Becerra MD Primary Care Provider [phone]- [phone] Jair Pro MD Unavailable [phone] Tim Herrera Unavailable [phone] Trung Slade MD Unavailable [phone] Reason for Visit * Reason Comments Med Refill Encounter Details Date Type Department Care Team (Late st Contact Info) Description 10/18/2024 Refill [facility] 230 [place], [place] [phone] Name, MD Joselo [address] [place] [address] Social History Tobacco Use Types Packs/Day Years [...] as of this encounter Plan of Treatment Not on file documented as of this encounter Visit Diagnoses Not on filedocumented in this encounter Additional Health Concerns Assessment Noted Time PHQ-9 Depression Total Score: 3 03/18/20 24 11:59 AM EDT documented as of this encounter Care Teams Waste Elimination Relationship Specialty Start Date End Date Ligia Becerra MD [address] [place] [address] PCP - General Family Medicine 07/22/22 Jair Pro MD [address] [place] [address] Urology 07/24/24 Tim Herrera [address] [place] [address] Neurosurgery 07/24/24 Trung Slade MD [address] [place] [address] Gastroenterology 10/19/24 documented as of this encounter
--- OUTSIDE RECORDS SUMMARY | 2024-11-08 17:55 | XMS_ITS | Encounter Summary ---
Author Organization [employer] Address 75 [facility] 7t [place] [address] Care Team Providers Care Glaze Supervisor Name Role Phone Ligia Becerra MD Primary Care Provider +1- [phone] Jair Pro MD Unavailable [phone] Tim Herrera Unavailable Trung Slade MD Unavailable [phone] Reason for Visit * Reason Onset Date Comments PT1 10/06/2023 Encounter Details Date Type Department Care Team (Late st Contact Info) Description 10/06/2023 Telephone [facility] MED[facility]INE 230 [place], [place] [phone] Ligia Becerra MD 230 [place] [address] PT1 Social History Tobacco Use Types Packs/Day [...] 3 PM Visits: 5 per month Address: [address] [place] [address] Facility: [facility] Wheel Chair: no, walker Governor Assembler Needed: yes Date: n/a Time: n/a Visits: 5 per month Address: [address] [place] [address] Facility: [facility] Wheel Chair: No, walker Governor Assembler Needed: yes documented in this encounter Plan of Treatment Not on file documented as of this encounter Visit Diagnoses Not on filedocumented in this encounter Additional Health Concerns Assessment Noted Time PHQ-9 Depression Total Score: 18 023 3:56 PM EDT documented as of this encounter Care Teams Glaze Supervisor Relationship Specialty Start Date End Date Ligia Becerra MD 230 [place] [address] PCP - General Family Medicine 07/22/22 Jair Pro MD [address] [place] [address] Urology 07/24/24 Tim Herrera [address] [place] [address] Neurosurgery 07/24/24 Trung Slade MD [address] 3rd [place] [address] Gastroenterology 10/19/24 documented as of this encounter
--- OUTSIDE RECORDS SUMMARY | 2024-11-08 17:55 | XMS_ITS | Encounter Summary ---
Author Organization [employer] Address 75 [facility] 7t [place] [address] Care Team Providers Care Commissioner Of Internal Revenue Name Role Phone Ligia Becerra MD Primary Care Provider [phone]- [phone] Jair Pro MD Unavailable Tim Herrera Unavailable [phone] Trung Slade MD Unavailable [phone] Reason for Visit * Reason Onset Date Comments PT1 10/20/2024 Encounter Details Date Type Department Care Team (Late st Contact Info) Description 10/20/2024 Telephone [facility] MEDICINE 230 [place], [place] [phone] Ligia Becerra MD 230 [place] [address] PT1 Social History Tobacco Use Types Packs/Day [...] encounter Miscellaneous Notes * Telephone Encounter - Shannon Angeles - 10/20/2024 10:35 AM EDT Patient calling requesting PT1 Home Address verified: Y/N: Yes Provider name or facility name: [address] [place] [address] Escort needed: Y/N: Yes Do you have a wheelchair: Y/N: No ( has walker) If yes- Manual or electric: N/A Visits: (1x monthly) Appt November 08 documented in this encounter Plan of Treatment Not on file documented as of this encounter Visit Diagnoses Not on filedocumented in this encounter Additional Health Concerns Assessment Noted Time PHQ-9 Depression Total Score: 3 03/18/20 24 11:59 AM EDT documented as of this encounter Care Teams Commissioner Of Internal Revenue Relationship Specialty Start Date End Date Ligia Becerra MD 230 [place] [address] PCP - General Family Medicine 07/22/22 Jair Pro MD [address] [place] [address] Urology 07/24/24 Tim Herrera [address] [place] [address] Neurosurgery 07/24/24 Trung Slade MD [address] 3rd [place] [address] Gastroenterology 10/19/24 documented as of this encounter
--- OUTSIDE RECORDS SUMMARY | 2024-11-08 17:55 | XMS_ITS | Encounter Summary ---
Author Organization [employer] Address 75 [facility] 7t [place] [address] Care Team Providers Care Firefighter Name Role Phone Ligia Becerra MD Primary Care Provider [phone]- [phone] Jair Pro MD Unavailable Tim Herrera Unavailable [phone] Trung Slade MD Unavailable [phone] Encounter Details Date Type Department Care Team (Late st Contact Info) Description 02/04/2023 Abstract [facility] MED[facility]INE 230 [place], [place] [phone] Ligia Becerra MD 230 [place], [place] [phone] Social History Tobacco Use Types Packs/Day Years [...] on filedocumented in this encounter Care Teams Firefighter Relationship Specialty Start Date End Date Ligia Becerra MD 230 [place] [address] PCP - General Family Medicine 07/22/22 Jair Pro MD [address] [place] [address] Urology 07/24/24 Tim Herrera [address] [place] [address] Neurosurgery 07/24/24 Trung Slade MD [address]rd [place] [address] Gastroenterology 10/19/24 documented as of this encounter
--- OUTSIDE RECORDS SUMMARY | 2024-11-08 17:55 | XMS_ITS | Encounter Summary ---
Author Organization [employer] Address 75 [facility] 7t [place] [address] Care Team Providers Care Residential Gas Heat Technician Name Role Phone Ligia Becerra MD Primary Care Provider [phone]- [phone] Jair Pro MD Unavailable Tim Herrera Unavailable [phone] Trung Slade MD Unavailable [phone] Reason for Visit * Reason Onset Date Comments Durable Medical Equipment 06/02/2024 Encounter Details Date Type Department Care Team (Late st Contact Info) Description 06/02/2024 Telephone [facility]INE 230 [place], [place] [phone] Ligia Becerra MD 230 [place] [address] Durable Medical Equipment Social History Tobacco Use [...] any questions you can contact pt at [phone]. documented in this encounter Plan of Treatment Not on file documented as of this encounter Visit Diagnoses Not on filedocumented in this encounter Additional Health Concerns Assessment Noted Time PHQ-9 Depression Total Score: 3 03/18/20 24 11:59 AM EDT documented as of this encounter Care Teams Residential Gas Heat Technician Relationship Specialty Start Date End Date Ligia Becerra MD [address] [place] [address] PCP - General Family Medicine 07/22/22 Jair Pro MD [address] [place] [address] Urology 07/24/24 Tim Herrera [address] [place] [address] Neurosurgery 07/24/24 Turng Slade MD [address]rd [place] [address] Gastroenterology 10/19/24 documented as of this encounter
--- OUTSIDE RECORDS SUMMARY | 2024-11-08 17:55 | XMS_ITS | Encounter Summary ---
Author Organization [employer] Address 75 [facility] 7 [place] [address] Care Team Providers Care Catalogue Librarian Name Role Phone Ligia Becerra MD Primary Care Provider +1- [phone] Jair Pro MD Unavailable Tim Herrera Unavailable Trung Slade MD Unavailable [phone] Encounter Details Date Type Department Care Team (Late st Contact Info) Description 03/18/2023 Telephone [facility] MEDICINE 230 [place], [place] [phone] Ligia Becerra MD 230 [place] [address] Social History Tobacco Use Types Packs/Day Years [...] - 03/18/2023 4:42 PM EDT Tc from pt states he spoke with a assistant guest services manager and was given the number [phone]. Manager Federal did not seeany documentation. Please contact pt at [phone] documented in this encounter Plan of Treatment Not on file documented as of this encounter Visit Diagnoses Not on filedocumented in this encounter Care Teams Catalogue Librarian Relationship Specialty Start Date End Date Ligia Becerra MD 230 [place] [address] PCP - General Family Medicine 07/22/22 Jair Pro MD [address] [place] [address] Urology 07/24/24 Tim Herrera [address] [place] [address] Neurosurgery 07/24/24 Trung Slade MD [address] 3rd [place] [address] Gastroenterology 10/19/24 documented as of this encounter
--- OUTSIDE RECORDS SUMMARY | 2024-11-08 17:55 | XMS_ITS | Encounter Summary ---
Author Organization [employer] Address 75 [facility] 7t [place] [address] Care Team Providers Care Roller Turner Name Role Phone Ligia Becerra MD Primary Care Provider +1- [phone] Jair Pro MD Unavailable [phone] Tim Herrera Unavailable [phone] Trung Slade MD Unavailable [phone] Reason for Referral * Consultation (Routine) - Closed Specialty Diagnoses / Procedures Referred By Contac t Referred To Contact Physical Therapy Diagnoses Chronic bilateral thoracic back pain Bilateral deafness Ligia Becerra MD 230 [place] [address] Phone: tel: fax: [facility] [place], [place] Phone: tel: fax: Referral ID Status Reason Start Date Expiration Date V isits Requested Visits Authorized [id number] Closed Specialty Services Required 06/22/2024 06/22/2025 1 1 Encounter Details Date Type Department Care Team (Late st Contact Info) Description 06/17/2024 Orders Only [facility] 230 [place] [address] Ligia Becerra MD [address] [place], [place] [phone] Chronic bilateral thoracic back pain (Primary Dx); [...] as of this encounter Plan of Treatment Scheduled Referrals Name Type Priority Associated Diagnoses Orde r Schedule Referral to Physical Therapy Outpatient Referral Routine Chronic bilateral thoracic back pain Bilateral deafness Expected: 06/17/2024 (Approximate), Expires: 06/17/2025 documented as of this encounter Visit Diagnoses Diagnosis Chronic bilateral thoracic back pain- Primary Bilateral deafness Unspecified hearing loss documented in this encounter Additional Health Concerns Assessment Noted Time PHQ-9 Depression Total Score: 3 03/18/20 24 11:59 AM EDT documented as of this encounter Care Teams Roller Turner Relationship Specialty Start Date End Date Ligia Becerra MD 230 [place] [address] PCP - General Family Medicine 07/22/22 Jair Pro MD [address] [place] [address] Urology 07/24/24 Tim Herrera [address] [place] [address] Neurosurgery 07/24/24 Trung Slade MD [address] 3rd [place] [address] Gastroenterology 10/19/24 documented as of this encounter
--- OUTSIDE RECORDS SUMMARY | 2024-11-08 17:55 | XMS_ITS | Continuity of Care Document ---
Author Organization [facility] Address [address] [place] [address] Phone Care Team Providers Care Vp Of Product Name Role Phone Unavailable Unavailable Unavailable Advance Directives Directive Yes / No Effective Date File Name No Information Encounters Encounter Description Practice Location Reason(s) For Visit Diagnoses Date Provider Providers Copied on Encounter [facility], [address] [place] [address], [address], [place] tel:[phone] [facility] Behavioral Health NO SHOW (chief complaint) No Information 9 No Information Family History Family Member Type Diagnosis Age At Onset No Information Payers Payer name Insurance type Covered alliance party ID Authoriza tion(s) No Information Social History Type Description Quantity Date Captured Comments Sex Male Smoking Status No Information Sexual Orientation Lesbian, dia or homosexual Gender Identity Jvpkry-ry-Fzty (FTM) /Transgender Male/Trans Man Chief Complaint And [...]
--- OUTSIDE RECORDS SUMMARY | 2024-11-08 17:55 | XMS_ITS | Encounter Summary ---
Author Organization [employer] Address 75 [facility] 7 [place] [address] Care Team Providers Care Scrap Metal Processing Worker Name Role Phone Ligia Becerra MD Primary Care Provider [phone]- [phone] Jair Pro MD Unavailable [phone] Tim Herrera Unavailable Trung Slade MD Unavailable [phone] Reason for Visit * Reason Onset Date Comments ER Follow-up 10/14/2023 Encounter Details Date Type Department Care Team (Late st Contact Info) Description 10/14/[address] [facility] MEDICINE 230 [place], [place] [phone] Ligia Becerra MD 230 [place] [address] ER Follow-up Social History Tobacco Use Types [...] from Pt calling to inform went to [facility] ER yesterday 10/13/23 . Informs was prescribed medication but was sent to the incorrect pharmacy and pt does not have transportation. Pt does not know name ofmed . Please call pt to clarify . Note below taken from [facility] discharge summery medication in question is oxycodone, will send message to PCP to advise. Reevaluation #3: 10/14/23 14:55 received phone call from patient via bottle house pumper. Patient stating that oxycodone prescription was sent to incorrect pharmacy. Upon review, appears prescription was rejected. Initial order canceled. New prescription for 4 tabs of oxycodone 5 mg sent to [facility] in [place]. * Telephone Encounter - Yareli Billingsley - 10/14/2023 12:41 PM EST TC from Pt calling to inform went to [facility] ER yesterday 10/13/23 . Informs was prescribed [...] documented as of this encounter Care Teams Scrap Metal Processing Worker Relationship Specialty Start Date End Date Ligia Becerra MD 230 [place] [address] PCP - General Family Medicine 07/22/22 Jair Pro MD [address] [place] [address] Urology 07/24/24 Tim Herrera [address] [place] [address] Neurosurgery 07/24/24 Trung Slade MD [address] 3rd [place] [address] Gastroenterology 10/19/24 documented as of this encounter
--- OUTSIDE RECORDS SUMMARY | 2024-11-08 17:55 | XMS_ITS | Encounter Summary ---
Author Organization [employer] Address 75 [facility] 7t [place] [address] Care Team Providers Care Heating Element Winder Name Role Phone Ligia Becerra MD Primary Care Provider [phone]- [phone] Jair Pro MD Unavailable Tim Herrera Unavailable Trung Slade MD Unavailable [phone] Reason for Visit * Reason Onset Date Comments Nurse Triage 10/08/2023 Encounter Details Date Type Department Care Team (Late st Contact Info) Description 10/08/2023 Telephone [facility] MEDICINE 230 [place], [place] [phone] Ligia Becerra MD 230 [place], [place] [phone] Nurse Triage Social History Tobacco Use Types [...] PM EST Call to Ashley Angeles via [employer] video audit reviewer. Pt reports having back pain that is [...] documented as of this encounter Care Teams Heating Element Winder Relationship Specialty Start Date End Date Ligia Becerra MD 230 [place] [address] PCP - General Family Medicine 07/22/22 Jair Pro MD [address] [place] [address] Urology 07/24/24 Tim Herrera [address] [place] [address] Neurosurgery 07/24/24 Trung Slade MD [address] 3rd [place] [address] Gastroenterology 10/19/24 documented as of this encounter
--- OUTSIDE RECORDS SUMMARY | 2024-11-08 17:56 | XMS_ITS | Encounter Summary ---
Author Organization [employer] Address 75 [facility] 7t [place] [address] Care Team Providers Care Supercharger Repair Supervisor Name Role Phone Ligia Becerra MD Primary Care Provider +1- [phone] Jair Pro MD Unavailable Tim Herrera Unavailable [phone] Trung Slade MD Unavailable Reason for Visit * Reason Onset Date Comments Nurse Triage 09/15/2023 Encounter Details Date Type Department Care Team (Late st Contact Info) Description 09/15/2023 Telephone [facility] MEDICINE 230 [place], [place] [phone] Ligia Becerra MD 230 [place], [place] [phone] Nurse Triage Social History Tobacco Use Types [...] accepted this outcome Please contact pt at [phone] documented in this encounter Plan of Treatment Not on file documented as of this encounter Visit Diagnoses Not on filedocumented in this encounter Additional Health Concerns Assessment Noted Time PHQ-9 Depression Total Score: 18 023 3:56 PM EDT documented as of this encounter Care Teams Supercharger Repair Supervisor Relationship Specialty Start Date End Date Ligia Becerra MD 230 [place] [address] PCP - General Family Medicine 07/22/22 Jair Pro MD [address] [place] [address] Urology 07/24/24 Tim Herrera [address] [place] [address] Neurosurgery 07/24/24 Trung Slade MD [address] [place] [address] Gastroenterology 10/19/24 documented as of this encounter
--- OUTSIDE RECORDS SUMMARY | 2024-11-08 17:56 | XMS_ITS | Clinical Summary ---
Author Organization [employer] Address [address] [place] [address] 7 [place] [address] Care Team Providers Care Artist Scientific Name Role Phone Ligia Becerra MD Primary Care Provider [phone] Jair Pro MD Unavailable [phone] Tim Nolen Unavailable [phone] Trung Slade MD Unavailable [phone] Allergies No known active allergies Medications * This document contains information received from the source organization and may not represent a complete record from that organization. pantoprazole (ProtoNix) 40 MG EC tabletIndications :Abdominal pain, unspecified abdominal location 024 Active terazosin (Hytrin) 2 MG capsuleIndication s:Benign prostatic hyperplasia with urinary frequency Take 2 mg by mouth at bedtime. 024 Active traZODone (Desyrel) 100 MG tabletIndications :Insomnia, unspecified type Take 1 tablet (100 mg) by mouth at bedtime. 30 tablet 025 2024 Active tamsulosin (Flomax) 0.4 MG 24 hr capsuleIndication s:Benign prostatic hyperplasia with urinary frequency Take 1 capsule (0.4 mg) by mouth Once per day. 90 capsule 3 025 Active spironolactone (Aldactone) 100 MG tabletIndications :Gender dysphoria Take 1 tablet (100 mg) by mouth in the morning. 30 tablet 11 023 2024 Discontinued(M ed list cleanup (will not trigger notification to Pharmacy)) fluticasone (Flonase) 50 MCG/ACT nasal sprayIndications: Acute bacterial rhinosinusitis Administer 1 spray into each nostril in the morning. 16 g 023 2024 Discontinued(M ed list cleanup (will not trigger notification to Pharmacy)) omeprazole OTC (PriLOSEC OTC) 20 MG EC tabletIndications :Generalized abdominal pain Take 1 tablet (20 mg) by mouth before breakfast. Do not crush, chew, or split. 30 tablet 11 024 2024 Discontinued(M ed list cleanup (will not trigger notification to Pharmacy)) terazosin (Hytrin) 5 MG capsuleIndication s:Benign prostatic hyperplasia with urinary retention Take 5 mg by mouth at bedtime. 2024 Discontinued(M ed list cleanup (will not trigger notification to Pharmacy)) tamsulosin (Flomax) 0.4 MG 24 hr capsuleIndication s:Benign prostatic hyperplasia with urinary frequency Take 0.4 mg by mouth at bedtime. 024 2024 Discontinued(M ed list cleanup (will not trigger notification to Pharmacy)) docusate sodium (Colace) 100 MG capsule Take 1 capsule (100 mg) by mouth 2 times daily. 60 capsule 3 025 2024 Discontinued(M ed list cleanup (will not trigger notification to Pharmacy)) polycarbophil (FiberCon) 625 MG tablet Take 1 tablet (625 mg) by mouth 2 times daily. 60 tablet 3 025 2024 Discontinued(M ed list cleanup (will not trigger notification to Pharmacy)) baclofen (Lioresal) 10 MG tablet Take 1 tablet (10 mg) by mouth if needed in the morning, at noon, and at bedtime for muscle spasms. 60 tablet 3 025 2024 Discontinued(M ed list cleanup (will not trigger notification to Pharmacy)) Diclofenac Sodium 1 % gel Apply 2 g topically if needed in the morning, at noon, in the evening, and at bedtime (pain). 150 g 3 025 2024 Discontinued(M ed list cleanup (will not trigger notification to Pharmacy)) amitriptyline (Elavil) 10 MG tablet Take 1 tablet (10 mg) by mouth at bedtime. 30 tablet 1 025 2024 Discontinued tamsulosin (Flomax) 0.4 MG 24 hr capsuleIndication s:Benign prostatic hyperplasia with urinary frequency Take 1 capsule (0.4 mg) by mouth Once per day. 90 capsule 3 025 2024 Discontinued(R eorder (will not trigger notification to Pharmacy)) Active Problems Patient Care Coordination No te Formatting of this note migh t be different from the original. [facility] [employer]: Yajaira, member services number [phone], provider services line, , option 4 Multiple Co[employer] W[employer] Agency: [facility] Problem Noted Date Diagnosed Date Preop examination 10/19/2024 Overview (10/19/2024): Patient is acceptable risk for surgery. Ok to proceed to operating room without further risk stratification. Assessment & Plan (10/19/2024 3:51 PM EDT): Patient is acceptable risk for surgery. Ok to proceed to operating room without further risk stratification. Tubular adenoma 10/19/2024 Overview (10/19/2024): -Tubular adenomas on colonoscopy with Dr. Slade 07/02/24, repeat in 3 years Urinary retention 07/26/2024 Overview (07/26/2024): Followed by [...] Patient will benefit from follow through with [facility] services and recommendations as well as continued calls to the [facility] [employer]. At this time Jacob Angeles meets criteria for Visit Diagnoses: Problem List Items Addressed This Visit Other Adjustment disorder with mixed anxiety and depressed mood Personality disorder (CMS/HCC) Patient ready to address current needs Yes Strengths-Ashley is able to advocate for her wants and needs. She is in the contemplation stage of change. PLAN: 1. Follow up with [facility]: Recommended for follow-up: As needed 2. Patient goal is to follow through with [facility] services and recommendations 3. Behavioral Recommendations a. OP therapy with [facility] b. Calling the [facility] [employer] daily Assessment & Plan (04/15/2023 1:06 PM [...] Patient will benefit from crisis evaluation with [facility] and penitentiary placment. ?? At this time Jacob Angeles meets criteria for Visit Diagnoses: Problem List Items Addressed This Visit ? Other ?? Adjustment disorder with mixed anxiety and depressed mood ?? Patient ready to address current needs Yes ?? Strengths- Ashley is able to advocate for her wants and needs. She is in the contemplation stage of change. ?? PLAN: 1. Follow up with [facility]: Recommended for follow-up: As needed 2. Patient goal is to engage in crisis evaluation, OP therapy, psychiatry 3. Behavioral Recommendations a. [facility] b. Call [facility] [employer] daily at 9:00 AM for intake Assessment [...] Patient will benefit from crisis evaluation with [facility], OP therapy, and psychiatry. At this time Jacob Angeles meets criteria for Visit Diagnoses: Problem List Items Addressed This Visit Other Adjustment disorder with mixed anxiety and depressed mood Personality disorder (CMS/HCC) Patient ready to address current needs Yes Strengths- Ashley is able to advocate for her wants and needs. She is in the contemplation stage of change. PLAN: 1. Follow up with [facility]: Recommended for follow-up: As needed 2. Patient goal is to engage in crisis evaluation, OP therapy, psychiatry 3. Behavioral Recommendations a. [facility] b. Call [facility] at 9:00 AM at 04/08/23 for intake Bradycardia 02/05/2023 Overview (02/05/2023): Pt was referred to cardiology. Assessment & Plan (11/19/2023 3:55 PM EDT): Pt was referred to cardiology. Assessment & Plan (05/23/2023 9:30 AM EDT): Pt was referred to cardiology. Assessment & Plan (02/05/2023 11:04 AM EDT): Pt was referred to cardiology. Other specified health status 12/19/2022 Overview (10/19/2024): -next comprehensive annual evaluation due after 03/18/25 -eye care facilitated by [facility] -dental home is [facility] -Healthcare proxy paperwork given 08/22/23, filed 03/18/24 Assessment & Plan (03/18/2024 11:39 AM EDT): -next PE due after 03/18/25 -eye care facilitated by [facility] -dental home is [facility] -Healthcare proxy paperwork given 08/22/23, filed 03/18/24 Assessment & Plan (08/22/2023 10:45 AM EST): -next PE due after Jul -eye care facilitated by -dental home is -Healthcare proxy paperwork given 08/22/23 Assessment & Plan (02/05/2023 11:02 AM EDT): -next PE due after Jul\ -eye care facilitated by -dental home is Colon cancer screening 10/28/2022 Overview (10/19/2024): -Completed colonoscopy Jun 2024, will call for results 10/19/24 Assessment & Plan (10/19/2024 3:42 PM EDT): -Completed colonoscopy Jun 2024, will call for results 10/19/24 Assessment & Plan (05/19/2024 3:20 PM EDT): [...] GI 09/17/21. I reached out to her pest locator Ana Maria to assist her in following [...] PM EST): I will be calling case investigator to discuss Pts option. Pt is interested [...] when offering services. -Team meeting pt and community engagement representative from safety, behavior health, case managment, viability and myself on 05/23/2023 done to reinforce which services to use when seeking assistance and setting up behavior expatiation when in the clinic. -[facility] [facility] ([facility]) MANAGER GLOBAL COMMUNICATIONS [phone] Assessment & Plan (11/19/2023 4:15 PM EDT): [...] when offering services. -Team meeting pt and community engagement representative from safety, behavior health, case managment, viability and myself on 05/23/2023 done to reinforce which services to use when seeking assistance and setting up behavior expatiation when in the clinic. -[facility] ([facility]) MANAGER GLOBAL COMMUNICATIONS [phone] Assessment & Plan (08/22/2023 9:06 AM EST): -psychological assessment with Wendy Rosas, [...] when offering services. -Team meeting pt and community engagement representative from safety, behavior health, case managment, viability and myself on 05/23/2023 done to reinforce which services to use when seeking assistance and setting up behavior expatiation when in the clinic. -[facility] ([facility]) MANAGER GLOBAL COMMUNICATIONS [phone] Assessment & Plan (08/13/2023 9:50 AM EST): -psychological assessment with Wendy Rosas, [...] when offering services. -Team meeting pt and community engagement representative from safety, behavior health, case managment, viability and myself on 05/23/2023 done to reinforce which services to use when seeking assistance and setting up behavior expatiation when in the clinic. -[facility] ([facility]) MANAGER GLOBAL COMMUNICATIONS [phone] Assessment & Plan (05/23/2023 1:14 PM EDT): [...] when offering services. -Team meeting pt and community engagement representative from safety, behavior health, case managment, viability and myself on 05/23/2023 done to reinforce which services to use when seeking assistance and setting up behavior expatiation when in the clinic. -[facility] ([facility]) MANAGER GLOBAL COMMUNICATIONS [phone] Assessment & Plan (02/05/2023 11:15 AM EDT): -psychological assessment with Wendy Rosas [...] offering services. -[facility] with Jose Ramos Jr. MANAGER GLOBAL COMMUNICATIONS , text . Assessment & Plan (10/28/2022 10:34 AM EDT): -psychological assessment with Wendy Rosas, [...] 07/25/2022 Overview (07/25/2022): -psychological assessment with Wendy Rosas, PhD. Clinical [...] 9:07 AM EST): -psychological assessment with Wendy Rosas, [...] Chronic bilateral thoracic back pain 07/25/2022 Overview (10/19/2024): Symptoms severe. This patient is suffering from [...] prescribed by [facility] but pt did not picking machine operator helper. -She returned to pain management 06/02/2023 and was referred to neurosurgery -seen by Dr. Tim Nolen MD, PhD , Spine Fellowship Trained Neurosurgeon, Director, [facility] 06/25/2023 -Pt offered a multilevel decompression of [...] after Urology problems have been handled 05/19/24 -pt believes she needs a preop for her back surgery, due to scheduling difficulties completed pre op 10/19/24. Patient is acceptable risk for surgery. Ok to proceed to operating room without further risk stratification. -called Dr Nolen to inquire if pt has spinal surgery scheduled and if pre-op appt needed. Spoke with Anitha at office who said that no surgery scheduled at the moment. The pt had a surgery scheduled over a year ago however it was cancelled. Pt then had recent visit on 09/06/24 to discuss surgery again, new MRI was ordered since last MRI was >1 year old however the pt was contacted several times to schedule the MRI but didn't answer and Dr Nolen office also called to tell the pt to schedule to MRI but couldn't reach the pt. Assessment & Plan (10/19/2024 4:02 PM EDT): Symptoms severe. This patient is [...] prescribed by [facility] but pt did not picking machine operator helper. -She returned to pain management 06/02/2023 and was referred to neurosurgery -seen by Dr. Tim Nolen MD, PhD , Spine Fellowship Trained Neurosurgeon, Director, [facility] 06/25/2023 -Pt offered a multilevel decompression of [...] after Urology problems have been handled 05/19/24 -pt believes she needs a preop for her back surgery, due to scheduling difficulties completed pre op 10/19/24. Patient is acceptable risk for surgery. Ok to proceed to operating room without further risk stratification. -called Dr Nolen to inquire if pt has spinal surgery scheduled and if pre-op appt needed. Spoke with Anitha at office who said that no surgery scheduled at the moment. The pt had a surgery scheduled over a year ago however it was cancelled. Pt then had recent visit on 09/06/24 to discuss surgery again, new MRI was ordered since last MRI was >1 year old however the pt was contacted several times to schedule the MRI but didn't answer and Dr Nolen office also called to tell the pt to schedule to MRI but couldn't reach the pt. Assessment & Plan (05/19/2024 3:21 PM EDT): Symptoms severe. This patient is suffering from neurogenic claudication with pain and weakness caused by severe lumbar spinal stenosis at L4-5 with a complete obliteration of the spinal canal and moderate spinal stenosis at L2-3 and L3-4. -Hx c-spine cord compression s/p surgery with good results prior to 2017. -MRI thoracic spine 12/10/16 reveals nonspecific thoracic [...] prescribed by [facility] but pt did not picking machine operator helper. -She returned to pain management 06/02/2023 and was referred to neurosurgery -seen by Dr. Tim Nolen MD, PhD , Spine Fellowship Trained Neurosurgeon, Director, [facility] -Ptoffered a multilevel decompression of the above-mentioned [...] surgery with good results prior to 2017. -MRI thoracic spine 12/10/16 reveals nonspecific thoracic [...] 04/17/2023 they recomended PT. -Duragesic prescribed by [facility] but pt did not picking machine operator helper. -She returned to pain management 06/02/2023 and was referred to neurosurgery -seen by Dr. Tim Nolen MD, PhD , Spine Fellowship Trained Neurosurgeon, Director, [facility] -Ptoffered a multilevel decompression of the above-mentioned [...] prescribed by [facility] but pt did not picking machine operator helper. -She returned to pain management 06/02/2023 and was referred to neurosurgery -seen by Dr. Tim Nolen MD, PhD , Spine Fellowship Trained Neurosurgeon, Director, [facility] -Ptoffered a multilevel decompression of the above-mentioned [...] results prior to 2016. -MRI thoracic spine 5/2/17 reveals nonspecific thoracic enthesopathy and multilevel thoracic [...] prescribed by [facility] but pt did not picking machine operator helper. -She returned to pain management 06/02/2023 and was referred to neurosurgery -seen by Dr. Tim Nolen MD, PhD , Spine Fellowship Trained Neurosurgeon, Director, [facility] -Ptoffered a multilevel decompression of the above-mentioned [...] prescribed by [facility] but pt did not picking machine operator helper. -She returned to pain management 06/02/2023 and was referred to neurosurgery -seen by Dr. Tim Nolen MD, PhD , Spine Fellowship Trained Neurosurgeon, Director, [facility] -Ptoffered a multilevel decompression of the above-mentioned [...] prescribed by [facility] but pt did not picking machine operator helper. -She returned to pain management 06/02/2023 and was referred to neurosurgery -seen by Dr. Tim Nolen MD, PhD , Spine Fellowship Trained Neurosurgeon, Director, [facility] -Ptoffered a multilevel decompression of the above-mentioned [...] surgery with good results prior to 2017. She was referred to Orthopedic 10/21/22. Pt seen 10/21/22, we are waiting for the note she was proscribed cyclobenzaprine. I reached out to her pest locator Ana Maria to assist her in following up. Assessment & Plan (09/17/2022 3:21 PM EST): Pt has advanced multi-level disk degenerative disease. -MRI thoracic spine 12/10/16 reveals nonspecific thoracic enthesopathy and multilevel thoracic spondylosis with stenosis and small lower thoracic spinal cord syrinx. -Hx c-spine cord compression s/p surgery with good results prior to 2016. An MRI of lumbar spine 08/27/2019 could [...] surgery with good results prior to 2017. Gammopathy with multiple M spikes 07/25/2022 Overview [...] blood work. BPH (benign prostatic hyperplasia) 07/25/2022 Overview (10/19/2024): Followed by Dr. Jair Pro MD, note from 04/01/24 reviewed -Cystoscopy one with mild enlarged prostate trabeculation bladder wall thickening, post void residual 14cc -Post void residual was 260cc -Bladder wall thickening 6mm on ultrasound, prostate volume small 25cc -Terazosin was reduced from 5mg to 2 mg due to dizziness -Start tamsulosin (Flomax) 0.4 MG 10/19/24 -Ordered PSA 10/19/24 Assessment & Plan (10/19/2024 3:45 PM EDT): Followed by Dr. Jair Pro MD, note from 04/01/24 reviewed -Cystoscopy one with mild enlarged prostate trabeculation bladder wall thickening, post void residual 14cc -Post void residual was 260cc -Bladder wall thickening 6mm on ultrasound, prostate volume small 25cc -Terazosin was reduced from 5mg to 2 mg due to dizziness -Start tamsulosin (Flomax) 0.4 MG 10/19/24 -Ordered PSA 10/19/24 Assessment & Plan (03/01/2024 4:56 PM EDT): [...] 12/30/2014 Overview (08/13/2023): Audiology appointment 03/02/2023. -[employer] community engagement representative Nany ([facility]) MANAGER GLOBAL COMMUNICATIONS [phone] Assessment & Plan (05/19/2024 3:18 PM EDT): Audiology appointment 03/02/2023. -[employer] community engagement representative Nany ([facility]) MANAGER GLOBAL COMMUNICATIONS [phone] Assessment & Plan (03/18/2024 11:35 AM EDT): Audiology appointment 03/02/2023. -[employer] community engagement representative Nany ([facility]) MANAGER GLOBAL COMMUNICATIONS [phone] Assessment & Plan (11/19/2023 4:14 PM EDT): Audiology appointment 03/02/2023. -[employer] community engagement representative Nany ([facility]) MANAGER GLOBAL COMMUNICATIONS [phone] Assessment & Plan (08/22/2023 9:06 AM EST): Audiology appointment 03/02/2023. -[employer] community engagement representative Nany ([facility]) MANAGER GLOBAL COMMUNICATIONS [phone] Assessment & Plan (08/13/2023 9:48 AM EST): Audiology appointment 03/02/2023. -[employer] community engagement representative Nany ([facility]) MANAGER GLOBAL COMMUNICATIONS [phone] Assessment & Plan (05/23/2023 1:16 PM EDT): Audiology appointment 03/02/2023. -[employer] community engagement representative Nany ([facility]) MANAGER GLOBAL COMMUNICATIONS [phone] Assessment & Plan (02/05/2023 11:14 AM EDT): Audiology appointment 03/02/2023. [employer] with Jose Ramos Jr. MANAGER GLOBAL COMMUNICATIONS , text . Assessment & Plan (12/12/2022 3:02 PM EDT): Audiology appointment 03/02/2023. Insomnia 09/13/2014 Overview (10/19/2024): On trazodone currently, increased dose to 100 MG 10/19/24. Assessment & Plan (10/19/2024 3:47 PM EDT): On trazodone currently, increased dose to 100 MG 10/19/24. S/P TURP 09/13/2014 Overview (02/05/2023): -Underwent TURP [...] Dr Jonathan henning Abdominal pain 06/03/2012 Overview (10/19/2024): -documented as far back as 2009 -Treated for H.pylori gastritis 2009 -GI in 2015 felt some of the pain is hyperalgesia from degenerative disc disease. -Referred to GI on 09/17/2022. She has number to call for appointment. I have asked her [employer] pest locator to assist her. -CT 12/2021 Gallbladder surgically absent. ABDOMINAL WALL: Bilateral fat- containing inguinal hernias. -Abdominal US 02/05/22 Increased echogenicity of the liver parenchyma consistent with hepatic steatosis. No focal hepatic lesions. Status post cholecystectomy -Referral placed to GI for further evaluation and colon cancer screening 12/18/23 -CT abd done in ER 02/05/24 for abd pain no acute abnormality -referred back to GI 10/19/24 Assessment & Plan (10/19/2024 3:51 PM EDT): -documented as far back as 2009 -Treated for H.pylori gastritis 2009 -GI in 2014 felt some of the pain is hyperalgesia from degenerative disc disease. -Referred to GI on 09/17/2022. She has number to call for appointment. I have asked her [employer] pest locator to assist her. -CT 12/2021 Gallbladder surgically absent. ABDOMINAL WALL: Bilateral fat- containing inguinal hernias. -Abdominal US 02/05/22 Increased echogenicity of the liver parenchyma consistent with hepatic steatosis. No focal hepatic lesions. Status post cholecystectomy -Referral placed to GI for further evaluation and colon cancer screening 12/18/23 -CT abd done in ER 02/05/24 for abd pain no acute abnormality -referred back to GI 10/19/24 Assessment & Plan (12/18/2023 12:06 PM EDT): -documented as far back as 2009 -Treated for H.pylori gastritis 2009 -GI in 2014 felt some of the pain is hyperalgesia from degenerative disc disease. -Referred to GI on 09/17/2022. She has number to call for appointment. I have asked her [employer] pest locator to assist her. -CT 12/2021 Gallbladder surgically [...] for appointment. I have asked her [employer] pest locator to assist her. -CT 12/2021 Gallbladder surgically [...] for appointment. I have asked her [employer] pest locator to assist her. -CT 12/2021 Gallbladder surgically [...] for appointment. I have asked her [employer] pest locator to assist her. -CT 12/2021 Gallbladder surgically [...] for appointment. I have asked her [employer] pest locator to assist her. -CT 12/2021 Gallbladder surgically [...] for appointment. I have asked her [employer] pest locator to assist her. -CT 12/2021 COMPARISON: Multiple [...] and OP therapy. At this time Jacob Ruedaiago meets criteria for Visit Diagnoses: Problem List Items Addressed This Visit Other Anxiety Personality disorder (CMS/HCC) Patient ready to address current needs Yes Strengths-Ashley is a strong advocate for herself and in the contemplation stage of change. PLAN: 1. Follow up with [facility]: Recommended for follow-up: 03/20/23 with Larissa Robertson [...] Encounters Date Type Department Care Team Description 10/20/2024 Patient Outreach [facility] [address] [place] [id number] Ligia Becerra MD Care Coordination ([facility] outreach for [facility] transportation needs-referral completed /) 10/20/[address] [address] Ligia Becerra MD PT1 10/19/2024 3:20 PM EDT Office Visit [facility] [address] [place] [phone] Ligia Becerra MD Chronic bilateral thoracic back pain (Primary Dx); Preop examination; Lower abdominal pain; Benign prostatic hyperplasia with urinary frequency; Insomnia, unspecified type; Colon cancer screening 10/19/[address] [phone] Ligia Becerra MD 10/18/2024 Refill [facility] [address] [place] [phone] Joselo Esparza MD 10/18/[address] [address] Ligia Becerra MD Nurse Triage 10/06/2024 Telephone [facility] [address] [place] [phone] Mayte Duncan 09/23/2024 4:00 PM EST Office Visit [facility] [facility] [address] [place] [address] Rectal bleeding (Primary Dx); Abdominal bloating; Chronic bilateral low back pain with bilateral sciatica 09/23/[address] [address] Ligia Becerra MD Nurse Triage 09/20/[address] [address] Ligia Becerra MD Medication Question 09/17/[address] [address] Concepción Perera MA chartprep 08/19/[address] [address] Ligia Becerra MD Nurse Triage 08/13/2024 Telephone [facility] [address] [place] [address] Gianna [place], [place] September Recall 08/12/2024 Telephone [facility] [address] [place] [address] Gianna RodriguezanaraH[place], [place] September Recall from Last 3 Months Immunizations Name Administration [...] Sign Reading Time Taken Comments Blood Pressure 127/58 10/19/2024 3:24 PM EDT Pulse 89 10/19/2024 3:24 PM EDT Temperature 36.6 ??C (97.9 ??F) 10/19/2024 3:24 PM ED T Respiratory Rate 18 10/19/2024 3:24 PM EDT Oxygen Saturation 97% 10/19/2024 3:24 PM EDT Inhaled Oxygen Concentration - - Weight 86.2 kg (190 lb) 10/19/2024 3:24 PM EDT Height 162.6 cm (5' 4 ) 05/22/2024 11:17 AM EDT Body Mass Index 32.61 05/22/2024 11:17 AM EDT Plan of Treatment Health Maintenance Due Date Last Done Comments Anal Pap 1958 CT Colonography 1958 FIT DNA/Cologuard 1958 FIT 1958 FOBT 1958 Sigmoidoscopy 1960 Hepatitis A Vaccines (1 of 2 - Risk 2-dose series) 1977 Hepatitis B Vaccines (1 of 3 - Risk 3-dose series) 2018 SDOH Screening 05/23/2024 05/23/2023 Dental Oral Exam 10/09/2024 04/08/2024 Dental Prophylaxis 10/09/2024 04/08/2024 Depression Screening 03/18/2025 03/18/2024, 03/18/20 Dental X-Ray: Bitewings 04/09/2025 04/08/2024, 11/13 Alcohol/Substance Use Screening 05/19/2025 05/19/2024 Dental X-Ray: Full Mouth 05/23/2025 05/22/2022 Tobacco Screening 09/23/2025 09/23/2024 Lipid Panel 07/29/2027 07/29/2022 Colonoscopy 10/20/2027 10/19/2024, 06/12, 12/01/2009 Colorectal Cancer Screening 10/20/2027 DTaP/Tdap/Td Vaccines (3 - Td or Tdap) 08/15/2032 08/15/2022, 06/22/2015, 09/05/2012 Hepatitis C Screening Completed 07/29/2022 Pneumococcal Vaccine: 50+ Years Completed 05/23/2023, 09/03/2012 RSV Patients and [...] Procedure Name Priority Date/Time Associated Diagnosis Comments HM COLONOSCOPY Routine 10/19/2024 7:27 PM EDT POCT URINALYSIS DIPSTICK Routine 10/19/2024 4:03 PM EDT Benign prostatic hyperplasia with urinary frequency PROPHYLAXIS - ADULT Routine 04/08/2024 3 :00 [...] Routine 07/29/2022 11:16 AM EST Primary hypertension from Last 3 Months or Most Recently Relevant to Health Maintenance Results * POCT urinalysis dipstick manually resulted (10/19/2024 4:03 PM EDT) Color, UA Yellow Clarity, UA Clear Glucose, UA Negative Bilirubin, UA Negative Ketones, UA Negative Spec Grav, UA 1.025 Blood, UA Negative Negative, None Detected pH, UA 5.5 Protein, UA Trace Urobilinogen, UA 0.2 Leukocytes, UA Negative Negative, Rare, Trace Nitrite, UA Negative Negative, None Detected Appearance, UA ok Urine 10/19/2024 4:03 PM EDT Ligia Becerra MD POINT OF CARE TEST ENTER/E DIT ORDERABLES Final Result * (ABNORMAL) Colonoscopy (07/02/2024) Pathologist [facility] Colonoscopy Abnormal( A) Normal Comment:tubular adenoma with Dr. Slade Historical Provider HEALTH MAINTENANCE Final Result * Hepatitis C Antibody with Reflex to HCV, RNA, Quantitative, Real-Time PCR (07/29/2022 11:16 AM EST) [facility] Hepatitis C Antibody NON-REACT MOE NON-REACT MOE [facility] Index 0.06 <1.00 [facility] Comment: HCV antibody was non-reactive. There is no laboratory evidence of HCV infection. In most cases, no further action is required. However, if recent HCV exposure is suspected, a test for HCV RNA (test code 33347) is suggested. For additional information please refer to http://education.Vela Systems/faq/BTR12j9 (This link is being provided for informational/ educational purposes only.) Blood Venous blood specimen / Unknown 07/29/2022 11:16 AM EST 07/29/2022 11:17 AM EST Narrative [facility] - 08/02/2022 10:49 PM EST FASTING:YES FASTING: YES Ligia Becerra MD LAB BLOOD ORDERABLES Final Result [facility] [address] [facility], [facility], [place] [address] [facility] [address] [facility], (N[address]2) [place] [address] * (ABNORMAL) Lipid Panel, Standard (07/29/2022 11:16 AM EST) [facility] Signature Cholesterol, Total 130 <200 mg/dL [facility] HDL Cholesterol 29(L) > OR = 40 mg/dL [facility] Triglycerides 80 <150 mg/dL [facility] LDL Cholesterol 84 mg/dL (calc) [facility] Comment: Reference range: <100 Desirable range <100 mg/dL for primary prevention; ?? <70 mg/dL for patients with CHD or diabetic patients with > or = 2 CHD risk factors. LDL-C is now calculated using the Aria calculation, which is a validated novel method providing better accuracy than the Friedewald equation in the estimation of LDL-C. Barrington SS et al. EITAN. 2013;310(19): 9376-3385 (http://education.Doctolib/faq/HTD535) Chol/HDLC Ratio 4.5 <5.0 (calc) [facility] Non-HDL Cholesterol 101 <130 mg/dL (calc) [facility] Comment: For patients with diabetes plus 1 major ASCVD risk factor, treating to a non-HDL-C goal of <100 mg/dL (LDL-C of <70 mg/dL) is considered a therapeutic option. Blood Venous blood specimen / Unknown 07/29/2022 11:16 AM EST 07/29/2022 11:17 AM EST Narrative [facility] - 08/02/2022 10:49 PM EST FASTING:YES FASTING: YES Ligia Becerra MD LAB BLOOD ORDERABLES Final Result [facility] [address], [place] [address] [facility] [place] [facility] [address] [facility], ([address]) [place] [address] from Last 3 Months or Most Recently Relevant to Health Maintenance Insurance MEDICARE [facility] - [facility] Advance Directives Documents on File Type Date Recorded Patient Limited Radiology Technician Expl anation Advance Directives and Living Will 03/23/2024 10:24 AM Health Care Proxy Care Teams Artist Scientific Relationship Specialty Start Date End Date Ligia Becerra MD [address] [place] [address] PCP - General Family Medicine 07/22/22 Jair Pro MD [address] [place] [address] Urology 07/24/24 Tim Nolen [address] [place] [address] Neurosurgery 07/24/24 Trung Slade MD [address] 3rd [place] [address] Gastroenterology 10/19/24
--- OUTSIDE RECORDS SUMMARY | 2024-11-08 17:56 | XMS_ITS | Encounter Summary ---
Author Organization [employer] Address 75 [facility] 7t [place] [address] Care Team Providers Care Pipe Fittings Molder Name Role Phone Ligia Becerra MD Primary Care Provider [phone]- [phone] Jair Pro MD Unavailable Tim Herrera Unavailable Trung Slade MD Unavailable [phone] Reason for Visit * Reason Onset Date Comments Created in error 04/09/2024 Encounter Details Date Type Department Care Team (Late st Contact Info) Description 04/09/2024 Telephone [facility] MEDICINE [address] [place], [place] [phone] Ligia Becerra MD [address] [place] [address] Created in error Social History Tobacco Use [...] the past 12 months, has t he [employer], gas, oil or water company threatened to [...] documented as of this encounter Care Teams Pipe Fittings Molder Relationship Specialty Start Date End Date Ligia Becerra MD [address] [place] [address] PCP - General Family Medicine 07/22/22 Jair Pro MD [address] [place] [address] Urology 07/24/24 Tim Herrera [address] [place] [address] Neurosurgery 07/24/24 Trung Slade MD [address] 3rd Floor [place], [place] Gastroenterology 10/19/24 documented as of this encounter
--- OUTSIDE RECORDS SUMMARY | 2024-11-08 17:56 | XMS_ITS | Encounter Summary ---
Author Organization [employer] Address 75 [facility] 7t [place] [address] Care Team Providers Care Repair Tech Name Role Phone Ligia Becerra MD Primary Care Provider [phone] Jair Pro MD Unavailable [phone] Tim Herrera Unavailable [phone] Trung Slade MD Unavailable [phone] Reason for Visit * Reason Onset Date Comments Durable Medical Equipment 03/22/2024 Encounter Details Date Type Department Care Team (Late st Contact Info) Description 03/22/2024 Telephone [facility] MEDICINE [address] [place], [place] [phone] Ligia Becerra MD [address] [place] [address] Durable Medical Equipment Social History Tobacco Use [...] the past 12 months, has t he [employer], gas, oil or water company threatened to [...] Sopra Cream Recliner Please contact pt at [phone] documented in this encounter Plan of Treatment Not on file documented as of this encounter Visit Diagnoses Not on filedocumented in this encounter Additional Health Concerns Assessment Noted Time PHQ-9 Depression Total Score: 3 03/18/20 24 11:59 AM EDT documented as of this encounter Care Teams Repair Tech Relationship Specialty Start Date End Date Ligia Becerra MD [address] [place] [address] PCP - General Family Medicine 07/22/22 Jair Pro MD [address] [place] [address] Urology 07/24/24 Tim Herrera [address] [place] [address] Neurosurgery 07/24/24 Trung Slade MD [address] 3rd [place] [address] Gastroenterology 10/19/24 documented as of this encounter
--- OUTSIDE RECORDS SUMMARY | 2024-11-08 17:56 | XMS_ITS | Clinical Summary ---
Author Organization [facility] it Address [address] [place] [address] Care Team Providers Care Certified Nurse Aide Name Role Phone Unavailable Primary Care Provider Unavailabl e Social History Tobacco Use Types Packs/Day Years Used Date Smoking Tobacco: Never Assessed Sex and Gender Information Value Date Recorded Sex Assigned at Not on file Legal Sex Male 9:39 AM EST Gender Identity Not on file Sexual Orientation Not on file Plan of Treatment Health Maintenance Due Date Last Done Comments DTaP,Tdap,and Td Vaccines (1 - Tdap) 1977 Pneumococcal Vaccine: 50+ Ye ars (1 of 1 - PCV) 02/09/2008 Zoster Vaccines (1 of 2) 02/09/2008 Abdominal Aortic Aneurysm (A AA) Screen 07/09/2022 Cholesterol Screening (Lipid Panel) 07/09/2022 Colorectal Cancer Screening: Colonoscopy 07/09/2022 Depression Screening 07/09/2022 Hepatitis C Screening 07/09/2022 Social Influencers of Health Screening 07/09/2022 Falls Risk Assessment 2023 COVID-19 Vaccine ( - 2023-2 5 season) 2024 Influenza Vaccine [...] patient's age to complete this topic Meningococcal B Vacine Aged Out No lo nger eligible based on patient's age to complete this topic RSV Immunization Patients Un angie 20 months Aged Out No longer eligible b ased on patient's age to complete this topic Varicella Vaccines Aged Out No longer eligible based on patient's age to complete this topic
--- OUTSIDE RECORDS SUMMARY | 2024-11-08 17:56 | XMS_ITS | Encounter Summary ---
Author Organization [employer] Address 75 [facility] [place], [place] [address] Care Team Providers Care Harp Maker Name Role Phone Ligia Becerra MD Primary Care Provider [phone]- [phone] Jair Pro MD Unavailable Tim Herrera Unavailable Trung Slade MD Unavailable [phone] Reason for Visit * Reason Onset Date Comments Requesting A Phone Call 09/18/2022 Encounter Details Date Type Department Care Team (Late st Contact Info) Description 09/18/2022 Telephone [facility] MEDICINE 230 [place], [place] [phone] Ligia Becerra MD 230 [place] [address] Requesting A Phone Call Social History Tobacco [...] specific in why. Please contact pt at [phone] documented in this encounter Plan of Treatment Not on file documented as of this encounter Visit Diagnoses Not on filedocumented in this encounter Care Teams Harp Maker Relationship Specialty Start Date End Date Ligia Becerra MD [address] [place] [address] PCP - General Family Medicine 07/22/22 Jair Pro MD [address] [place] [address] Urology 07/24/24 Tim Herrera [address] [place] [address] Neurosurgery 07/24/24 Trung Slade MD [address] 3rd [place] [address] Gastroenterology 10/19/24 documented as of this encounter
--- OUTSIDE RECORDS SUMMARY | 2024-11-08 17:57 | XMS_ITS | Encounter Summary ---
Author Organization [employer] Address [address] [facility] [address], [place] [address] Care Team Providers Care Mobile Application Developer Name Role Phone Ligia Becerra MD Primary Care Provider [phone]- [phone] Jair Pro MD Unavailable Tim Herrera Unavailable Trung Slade MD Unavailable [phone] Reason for Visit * Reason Onset Date Comments returnin call back 09/17/2022 Encounter Details Date Type Department Care Team (Late st Contact Info) Description 09/17/2022 Telephone [facility] MEDICINE [address] [place], [place] [phone] Ligia eBcerra MD 230 [place] [address] returnin call back Social History Tobacco Use [...] EST Tc from pt returning phone call, typewriter aligner see's that provider would like to schedule a 30 min appt inperson with pt. Please contact pt at [phone] documented in this encounter Plan of Treatment Not on file documented as of this encounter Visit Diagnoses Not on filedocumented in this encounter Care Teams Mobile Application Developer Relationship Specialty Start Date End Date Ligia Becerra MD [address] [place] [address] PCP - General Family Medicine 07/22/22 Jair Pro MD [address] [place] [address] Urology 07/24/24 Tim Herrera [address] [place] [address] Neurosurgery 07/24/24 Trung Slade MD [address] 3rd [place] [address] Gastroenterology 10/19/24 documented as of this encounter
--- OUTSIDE RECORDS SUMMARY | 2024-11-08 17:57 | XMS_ITS | Encounter Summary ---
Author Organization [employer] Address 75 [facility] 7t [place] [address] Care Team Providers Care Teacher Of The Deaf/Hard Of Hearing Name Role Phone Ligia Becerra MD Primary Care Provider [phone]- [phone] Jair Pro MD Unavailable Tim Herrera Unavailable Trung Slade MD Unavailable [phone] Reason for Visit * Reason Onset Date Comments Nurse Triage 08/15/2023 Encounter Details Date Type Department Care Team (Late st Contact Info) Description 08/15/2023 Telephone [facility] MEDICINE [address] [place], [place] [phone] Ligia Becerra MD [address] [place], [place] [phone] Nurse Triage Social History Tobacco Use Types [...] documented as of this encounter Care Teams Teacher Of The Deaf/Hard Of Hearing Relationship Specialty Start Date End Date Ligia Becerra MD [address] [place] [address] PCP - General Family Medicine 07/22/22 Jair Pro MD [address] [place] [address] Urology 07/24/24 Tim Herrera [address] [place] [address] Neurosurgery 07/24/24 Trung Slade MD [address] 3rd Floor [place] [address] Gastroenterology 10/19/24 documented as of this encounter
--- OUTSIDE RECORDS SUMMARY | 2024-11-08 17:57 | XMS_ITS | Encounter Summary ---
Author Organization [employer] Address 75 [facility] 7 [place] [address] Care Team Providers Care Demand Planning Manager Name Role Phone Ligia Becerra MD Primary Care Provider [phone]- [phone] Jair Pro MD Unavailable [phone] Tim Herrera Unavailable Trung Slade MD Unavailable [phone] Encounter Details Date Type Department Care Team (Late st Contact Info) Description 08/13/2022 Orders Only [facility] MEDICINE [address] [place] [address] Ligia Becerra MD 230 [place] [address] Social History Tobacco Use Types Packs/Day Years [...] on filedocumented in this encounter Care Teams Demand Planning Manager Relationship Specialty Start Date End Date Ligia Becerra MD 230 [place] [address] PCP - General Family Medicine 07/22/22 Jair Pro MD [address] [place] [address] Urology 07/24/24 Tim Herrera [address] [place] [address] Neurosurgery 07/24/24 Trung Slade MD [address] 3rd [place] [address] Gastroenterology 10/19/24 documented as of this encounter
--- OUTSIDE RECORDS SUMMARY | 2024-11-08 17:57 | XMS_ITS | Encounter Summary ---
Author Organization [employer] Address 75 [facility] 7t [place] [address] Care Team Providers Care Journeyman Patternmaker Name Role Phone Ligia Becerra MD Primary Care Provider [phone]- [phone] Jair Pro MD Unavailable [phone] Tim Herrera Unavailable Trung Slade MD Unavailable [phone] Reason for Visit * Reason Onset Date Comments Med Refill 07/18/2023 Encounter Details Date Type Department Care Team (Late st Contact Info) Description 07/18/2023 Telephone [facility] MEDICINE [address] [place], [place] [phone] Ligia Becerra MD [address] [place] [address] Med Refill Social History Tobacco Use Types [...] Strength) 500 MG tablet Please sent to [facility] Pharm[facility] documented in this encounter Plan of Treatment Not on file documented as of this encounter Visit Diagnoses Not on filedocumented in this encounter Additional Health Concerns Assessment Noted Time PHQ-9 Depression Total Score: 18 023 3:56 PM EDT documented as of this encounter Care Teams Journeyman Patternmaker Relationship Specialty Start Date End Date Ligia Becerra MD [address] [place] [address] PCP - General Family Medicine 07/22/22 Jair Pro MD [address] [place] [address] Urology 07/24/24 Tim Herrera [address] [place] [address] Neurosurgery 07/24/24 Trung Slade MD [address] 3rd [place] [address] Gastroenterology 10/19/24 documented as of this encounter
--- OUTSIDE RECORDS SUMMARY | 2024-11-08 17:57 | XMS_ITS | Encounter Summary ---
Author Organization [employer] Address 75 [facility] 7t [place] [address] Care Team Providers Care Turbo Operator Name Role Phone Ligia Becerra MD Primary Care Provider [phone]- [phone] Jair Pro MD Unavailable Tim Herrera Unavailable [phone] Trung Slade MD Unavailable [phone] Encounter Details Date Type Department Care Team (Late st Contact Info) Description 07/30/2023 Telephone [facility] MEDICINE 230 [place], [place] [phone] Ligia Becerra MD 230 [place] [address] Social History Tobacco Use Types Packs/Day Years [...] documented as of this encounter Care Teams Turbo Operator Relationship Specialty Start Date End Date Ligia Becerra MD [address] [place] [address] PCP - General Family Medicine 07/22/22 Jair Pro MD [address] [place] [address] Urology 07/24/24 Tim Herrera [address] [place] [address] Neurosurgery 07/24/24 Trung Slade MD [address] 3rd [place] [address] Gastroenterology 10/19/24 documented as of this encounter
--- OUTSIDE RECORDS SUMMARY | 2024-11-08 17:57 | XMS_ITS | Encounter Summary ---
Author Organization [employer] Address 75 [facility] 7t [place] [address] Care Team Providers Care Reserve Officer Name Role Phone Ligia Becerra MD Primary Care Provider [phone]- [phone] Jair Pro MD Unavailable Tim Herrera Unavailable [phone] Trung Slade MD Unavailable [phone] Reason for Visit * Reason Onset Date Comments Call back request 08/14/2023 Encounter Details Date Type Department Care Team (Late st Contact Info) Description 08/14/2023 Telephone [facility] MEDICINE 230 [place], [place] [phone] Ligia Becerra MD [address] [place], [place] [phone] Call back request Social History Tobacco Use [...] 3:00 PM EST Tc from pt via [employer] interpretor #[id number] requesting call back wanting to speak with provider. Pt didn't want to information regarding the call, she stated pcp knows what's going on. Please contact pt at [phone]. documented in this encounter Plan of Treatment Not on file documented as of this encounter Visit Diagnoses Not on filedocumented in this encounter Additional Health Concerns Assessment Noted Time PHQ-9 Depression Total Score: 18 023 3:56 PM EDT documented as of this encounter Care Teams Reserve Officer Relationship Specialty Start Date End Date Ligia Becerra MD [address] [place] [address] PCP - General Family Medicine 07/22/22 Jair Pro MD [address] [place] [address] Urology 07/24/24 Tim Herrera [address] [place] [address] Neurosurgery 07/24/24 Trung Slade MD [address]rd [place] [address] Gastroenterology 10/19/24 documented as of this encounter
--- OUTSIDE RECORDS SUMMARY | 2024-11-08 17:57 | XMS_ITS | Encounter Summary ---
Author Organization [employer] Address 75 [facility] 7t [place] [address] Care Team Providers Care Tenoner Operator Name Role Phone Ligia Becerra MD Primary Care Provider [phone] Jair Pro MD Unavailable Tim Herrera Unavailable Trung Slade MD Unavailable [phone] Encounter Details Date Type Department Care Team (Late st Contact Info) Description 11/01/2022 Orders Only [facility] MEDICINE 230 [place], [place] [phone] Ligia Becerra MD 230 [place] [address] Bilateral deafness (Primary Dx) Social History Tobacco [...] Diagnosis Bilateral deafness- Primary Unspecified hearing loss documented in this encounter Care Teams Tenoner Operator Relationship Specialty Start Date End Date Ligia Becerra MD [address] [place] [address] PCP - General Family Medicine 07/22/22 Jair Pro MD [address] [place] [address] Urology 07/24/24 Tim Herrera [address] [facility] [address] [place] [address] Neurosurgery 07/24/24 Trung Slade MD [address] [facility] [address] 3rd [place] [address] Gastroenterology 10/19/24 documented as of this encounter
--- OUTSIDE RECORDS SUMMARY | 2024-11-08 17:57 | XMS_ITS | Encounter Summary ---
Author Organization [facility] Address [address] [place] [address] [facility] [place] [address] Care Team Providers Care Flour Tester Name Role Phone Ligia Becerra MD Primary Care Provider [phone]- [phone] Jair Pro MD Unavailable Tim Herrera Unavailable [phone] Trung Slade MD Unavailable [phone] Encounter Details Date Type Department Care Team (Latest Contact Info) Description 06/19/2022 Abstract [facility] CONVERSIONS Dental, Provider, DDS Social History Tobacco [...] on filedocumented in this encounter Care Teams Flour Tester Relationship Specialty Start Date End Date Ligia Becerra MD 230 [place] [address] PCP - General Family Medicine 07/22/22 Jair Pro MD [address] [facility] [address] [place] [address] Urology 07/24/24 Tim Herrera [address] [place] [address] Neurosurgery 07/24/24 Trung Slade MD [address] 3rd [place] [address] Gastroenterology 10/19/24 documented as of this encounter
== END 2024-11-08 16:17 | disposition home or self-care (01) ==
LOC: HO.MRI 16:16
PROVIDERS: Visit Provider Physician Assistant
DX: M48.062 Spinal stenosis, lumbar region with neurogenic claudication (principal)
CPT/HCPCS: 72148

== ENCOUNTER → 2024-11-08 16:29 | Outpatient (BNV) | payer OTHER, SELFPAY | PROVIDERS: Visit Provider Radiology Diagnostic Radiology | DX: M48.061 Spinal stenosis, lumbar region without neurogenic claudication (principal) | CPT/HCPCS: 72148 ==

== ENCOUNTER 2024-11-26 13:21 | Outpatient (REF) | payer OTHER, SELFPAY ==
--- NOTE | ~2024-11-26 | XR_ITS ---
EXAMINATION: XR LUMBOSACRAL SPINE CLINICAL INFORMATION: M48.062 - Spinal stenosis, lumbar region with neurogenic claudication COMPARISON: 11/12/2016. Correlation made with MR lumbar 11/08/2024. TECHNIQUE: 4 views of the lumbar spine, inclusive of flexion and extension views, were obtained. FINDINGS: There is a mild levoconvex scoliosis, apex at L3. There is a normal lordosis. No fracture, compression deformity, or suspicious bone lesion. Severe disc degeneration L4-5 and L5-S1 with disc vacuum phenomenon. There is otherwise moderate disc degeneration with associated disc osteophytic spurring. Normal facet alignment. Multilevel degenerative facet changes present most notable L4-S1. Trace degenerative retrolistheses of T12 on L1 and L1 on L2. Alignment is otherwise anatomic. Flexion and extension views demonstrate no change in alignment to suggest instability. Soft tissues demonstrate mild vascular calcifications. There are cholecystectomy clips present. XR/XR lumbar spine 4V min IMPRESSION: 1. No acute bony abnormalities. 2. Moderate spondylosis most significant at L4-5 and L5-S1. 3. No evidence of instability. Electronically signed by: Garth Lafleur MD 11/26/2024 04:42 PM EDT
--- OUTSIDE RECORDS SUMMARY | 2024-11-26 16:05 | XMS_ITS | Encounter Summary ---
Author Organization [employer] Address [address] [facility] 7t [place] [address] Care Team Providers Care Supervisor Electron Tube Processing Name Role Phone Ligia Becerra MD Primary Care Provider [phone]- [phone] Jair Pro MD Unavailable Tim Herrera Unavailable Trung Slade MD Unavailable [phone] Reason for Visit * Reason Onset Date Comments Nurse Triage 10/08/2023 Encounter Details Date Type Department Care Team (Late st Contact Info) Description 10/08/2023 Telephone [facility] MEDICINE [address] [place], [place] [phone] Ligia Becerra MD [address] [place], [place] [phone] Nurse Triage Social History Tobacco Use Types [...] PM EST Call to Ashley Angeles via [employer] video administration assistant. Pt reports having back pain that is [...] documented as of this encounter Care Teams Supervisor Electron Tube Processing Relationship Specialty Start Date End Date Ligia Becerra MD [address] [place] [address] PCP - General Family Medicine 07/22/22 Jair Pro MD [address] [place] [address] Urology 07/24/24 Tim Herrera [address] [place] [address] Neurosurgery 07/24/24 Trung Slade MD [address] 3rd [place] [address] Gastroenterology 10/19/24 documented as of this encounter
--- OUTSIDE RECORDS SUMMARY | 2024-11-26 16:05 | XMS_ITS | Continuity of Care Document ---
Author Organization [facility] Address [address] [place] [address] Phone Care Team Providers Care Exterior Interior Specialist Name Role Phone Unavailable Unavailable Unavailable Advance Directives Directive Yes / No Effective Date File Name No Information Encounters Encounter Description Practice Location Reason(s) For Visit Diagnoses Date Provider Providers Copied on Encounter [facility], [address] [place] [address], [address], [place] tel:[phone] [facility] Behavioral Health NO SHOW (chief complaint) No Information 9 No Information Family History Family Member Type Diagnosis Age At Onset No Information Payers Payer name Insurance type Covered green party ID Authoriza tion(s) No Information Social History Type Description Quantity Date Captured Comments Sex Male Smoking Status No Information Sexual Orientation Lesbian, dia or homosexual Gender Identity Nmxmkw-mr-Zuju (FTM) /Transgender Male/Trans Man Chief Complaint And [...]
--- OUTSIDE RECORDS SUMMARY | 2024-11-26 16:05 | XMS_ITS | Encounter Summary ---
Author Organization [employer] Address [address] [facility] 7 [place] [address] Care Team Providers Care Advanced Clinical Specialist Name Role Phone Ligia Becerra MD Primary Care Provider [phone]- [phone] Jair Pro MD Unavailable Tim Herrera Unavailable Trung Slade MD Unavailable [phone] Encounter Details Date Type Department Care Team (Late st Contact Info) Description 03/18/2023 Telephone [facility] MEDICINE [address] [place], [place] [phone] Ligia Becerra MD [address] [place] [address] Social History Tobacco Use Types Packs/Day Years [...] from pt states he spoke with a fish hatchery manager and was given the number [phone]. Animal Breeder did not seeany documentation. Please contact pt at [phone] documented in this encounter Plan of Treatment Not on file documented as of this encounter Visit Diagnoses Not on filedocumented in this encounter Care Teams Advanced Clinical Specialist Relationship Specialty Start Date End Date Ligia Becerra MD [address] [place] [address] PCP - General Family Medicine 07/22/22 Jair Pro MD [address] [place] [address] Urology 07/24/24 Tim Herrera [address] [place] [address] Neurosurgery 07/24/24 Trung Slade MD [address] 3rd [place] [address] Gastroenterology 10/19/24 documented as of this encounter
--- OUTSIDE RECORDS SUMMARY | 2024-11-26 16:05 | XMS_ITS | Encounter Summary ---
Author Organization [employer] Address [address] [facility] 7t [place] [address] Care Team Providers Care Assembler Knife Name Role Phone Ligia Becerra MD Primary Care Provider [phone]- [phone] Jair Pro MD Unavailable Tim Herrera Unavailable Trung Slade MD Unavailable [phone] Reason for Visit * Reason Onset Date Comments PT1 10/06/2023 Encounter Details Date Type Department Care Team (Late st Contact Info) Description 10/06/2023 Telephone [facility] MEDICINE [address] [place], [place] [phone] Ligia Becerra MD [address] [place] [address] PT1 Social History Tobacco Use Types Packs/Day [...] 3 PM Visits: 5 per month Address: [address] [place] [address] Facility: [facility] Wheel Chair: no, walker Assistant County Engineer Needed: yes Date: n/a Time: n/a Visits: 5 per month Address: [address] [place] [address] Facility: [facility] Wheel Chair: No, walker Assistant County Engineer Needed: yes documented in this encounter Plan of Treatment Not on file documented as of this encounter Visit Diagnoses Not on filedocumented in this encounter Additional Health Concerns Assessment Noted Time PHQ-9 Depression Total Score: 18 023 3:56 PM EDT documented as of this encounter Care Teams Assembler Knife Relationship Specialty Start Date End Date Ligia Becerra MD [address] [place] [address] PCP - General Family Medicine 07/22/22 Jair Pro MD [address] [place] [address] Urology 07/24/24 Tim Herrera [address] [place] [address] Neurosurgery 07/24/24 Trung Slade MD [address] 3rd [place] [address] Gastroenterology 10/19/24 documented as of this encounter
--- OUTSIDE RECORDS SUMMARY | 2024-11-26 16:05 | XMS_ITS | Encounter Summary ---
Author Organization [employer] Address [address] [facility] 7t [place] [address] Care Team Providers Care Brush Cutter Name Role Phone Ligia Becerra MD Primary Care Provider [phone]- [phone] Jair Pro MD Unavailable Tim Herrera Unavailable [phone] Trung Slade MD Unavailable [phone] Reason for Visit * Reason Comments Med Refill Encounter Details Date Type Department Care Team (Late st Contact Info) Description 10/18/2024 Refill [facility] [address] [place], [place] [phone] Name, MD Joselo [address] [place] [address] Social History Tobacco Use Types Packs/Day Years [...] documented as of this encounter Care Teams Brush Cutter Relationship Specialty Start Date End Date Ligia Becerra MD [address] [place] [address] PCP - General Family Medicine 07/22/22 Jair Pro MD [address] [place] [address] Urology 07/24/24 Tim Herrera [address] [place] [address] Neurosurgery 07/24/24 Trung Slade MD [address]rd [place] [address] Gastroenterology 10/19/24 documented as of this encounter
--- OUTSIDE RECORDS SUMMARY | 2024-11-26 16:06 | XMS_ITS | Encounter Summary ---
Author Organization [employer] Address [address] [facility] [address], [place] [address] Care Team Providers Care Purifying Plant Operator Name Role Phone Ligia Becerra MD Primary Care Provider [phone] Jair Pro MD Unavailable Tim Herrera Unavailable Trung Slade MD Unavailable Reason for Visit * Reason Onset Date Comments Requesting A Phone Call 09/18/2022 Encounter Details Date Type Department Care Team (Late st Contact Info) Description 09/18/2022 Telephone [facility] MEDICINE [address] [place], [place] [phone] Ligia Becerra MD [address] [place] [address] Requesting A Phone Call Social History Tobacco [...] specific in why. Please contact pt at [phone] documented in this encounter Plan of Treatment Not on file documented as of this encounter Visit Diagnoses Not on filedocumented in this encounter Care Teams Purifying Plant Operator Relationship Specialty Start Date End Date Ligia Becerra MD [address] [place] [address] PCP - General Family Medicine 07/22/22 Jair Pro MD [address] [place] [address] Urology 07/24/24 Tim Herrera [address] [place] [address] Neurosurgery 07/24/24 Trung Slade MD [address] 3rd [place] [address] Gastroenterology 10/19/24 documented as of this encounter
--- OUTSIDE RECORDS SUMMARY | 2024-11-26 16:06 | XMS_ITS | Encounter Summary ---
Author Organization [employer] Address [address] [facility] 7t [place] [address] Care Team Providers Care Rivet Driver Name Role Phone Ligia Becerra MD Primary Care Provider [phone]- [phone] Jair Pro MD Unavailable Tim Herrera Unavailable [phone] Trung Slade MD Unavailable [phone] Reason for Visit * Reason Onset Date Comments Created in error 04/09/2024 Encounter Details Date Type Department Care Team (Late st Contact Info) Description 04/09/2024 Telephone [facility] MEDICINE [address] [place], [place] [phone] Ligia Becerra MD [address] [place] [address] Created in error Social History Tobacco Use [...] the past 12 months, has t he [employer], gas, oil or water company threatened to [...] documented as of this encounter Care Teams Rivet Driver Relationship Specialty Start Date End Date Ligia Becerra MD [address] [place] [address] PCP - General Family Medicine 07/22/22 Jair Pro MD [address] [place] [address] Urology 07/24/24 Tim Herrera [address] [place] [address] Neurosurgery 07/24/24 Trung Slade MD [address] 3rd Floor [place], [place] Gastroenterology 10/19/24 documented as of this encounter
--- OUTSIDE RECORDS SUMMARY | 2024-11-26 16:06 | XMS_ITS | Encounter Summary ---
Author Organization [employer] Address [address] [facility] 7 [place] [address] Care Team Providers Care Turner Off Name Role Phone Ligia Becerra MD Primary Care Provider [phone] Jair Pro MD Unavailable Tim Herrera Unavailable Trung Slade MD Unavailable [phone] Reason for Visit * Reason Onset Date Comments ER Follow-up 10/14/2023 Encounter Details Date Type Department Care Team (Late st Contact Info) Description 10/14/[address] [facility] MEDICINE [address] [place], [place] [phone] Ligia Becerra MD [address] [place] [address] ER Follow-up Social History Tobacco Use Types [...] from Pt calling to inform went to [facility] ER yesterday 10/13/23 . Informs was prescribed medication but was sent to the incorrect pharmacy and pt does not have transportation. Pt does not know name ofmed . Please call pt to clarify . Note below taken from [facility] discharge summery medication in question is oxycodone, will send message to PCP to advise. Reevaluation #3: 10/14/23 14:55 received phone call from patient via diplomatic interpreter. Patient stating that oxycodone prescription was sent to incorrect pharmacy. Upon review, appears prescription was rejected. Initial order canceled. New prescription for 4 tabs of oxycodone 5 mg sent to [facility] in [place]. * Telephone Encounter - Yareli Billingsley - 10/14/2023 12:41 PM EST TC from Pt calling to inform went to [facility] ER yesterday 10/13/23 . Informs was prescribed [...] documented as of this encounter Care Teams Turner Off Relationship Specialty Start Date End Date Ligia Becerra MD [address] [place] [address] PCP - General Family Medicine 07/22/22 Jair Pro MD [address] [place] [address] Urology 07/24/24 Tim Herrera [address] [place] [address] Neurosurgery 07/24/24 Trung Slade MD [address]rd [place] [address] Gastroenterology 10/19/24 documented as of this encounter
--- OUTSIDE RECORDS SUMMARY | 2024-11-26 16:06 | XMS_ITS | Encounter Summary ---
Author Organization [employer] Address [address] [facility] 7t [place] [address] Care Team Providers Care Superintendent Stevedoring Name Role Phone Ligia Becerra MD Primary Care Provider [phone]- [phone] Jair Pro MD Unavailable [phone] Tim Herrera Unavailable Trung Slade MD Unavailable [phone] Reason for Visit * Reason Onset Date Comments PT1 10/20/2024 Encounter Details Date Type Department Care Team (Late st Contact Info) Description 10/20/2024 Telephone [facility] MEDICINE 230 [place], [place] [phone] Ligia Becerra MD [address] [place] [address] PT1 Social History Tobacco Use Types Packs/Day [...] Y/N: Yes Provider name or facility name: [address] [place] [address] Escort needed: Y/N: Yes Do you have [...] documented as of this encounter Care Teams Superintendent Stevedoring Relationship Specialty Start Date End Date Ligia Becerra MD [address] [place] [address] PCP - General Family Medicine 07/22/22 Jair Pro MD [address] [place] [address] Urology 07/24/24 Tim Herrera [address] [place] [address] Neurosurgery 07/24/24 Trung Slade MD [address] 3rd [place] [address] Gastroenterology 10/19/24 documented as of this encounter
--- OUTSIDE RECORDS SUMMARY | 2024-11-26 16:06 | XMS_ITS | Encounter Summary ---
Author Organization [employer] Address [address] [facility] 7t [place] [address] Care Team Providers Care Retail Marketing Manager Name Role Phone Ligia Becerra MD Primary Care Provider [phone]- [phone] Jair Pro MD Unavailable [phone] Tim Herrera Unavailable Trung Slade MD Unavailable [phone] Encounter Details Date Type Department Care Team (Late st Contact Info) Description 11/01/2022 Orders Only [facility] MEDICINE [address] [place], [place] [phone] Ligia Becerra MD [address] [place] [address] Bilateral deafness (Primary Dx) Social History Tobacco [...] loss documented in this encounter Care Teams Retail Marketing Manager Relationship Specialty Start Date End Date Ligia Becerra MD [address] [place] [address] PCP - General Family Medicine 07/22/22 Jair Pro MD [address] [place] [address] Urology 07/24/24 Tim Herrera [address] [facility] [address] [place] [address] Neurosurgery 07/24/24 Trung Slade MD [address] [facility] [address] 3rd [place] [address] Gastroenterology 10/19/24 documented as of this encounter
--- OUTSIDE RECORDS SUMMARY | 2024-11-26 16:06 | XMS_ITS | Encounter Summary ---
Author Organization [employer] Address [address] [facility] 7t [place] [address] Care Team Providers Care Frog Catcher Name Role Phone Ligia Becerra MD Primary Care Provider [phone]- [phone] Jair Pro MD Unavailable Tim Herrera Unavailable [phone] Trung Slade MD Unavailable [phone] Reason for Visit * Reason Onset Date Comments Nurse Triage 11/23/2024 Encounter Details Date Type Department Care Team (Late st Contact Info) Description 11/23/2024 Telephone [facility] MEDICINE [address] [place], [place] [phone] Ligia Becerra MD [address] [place] [address] Nurse Triage Social History Tobacco Use Types [...] Telephone Encounter - Liberty Noel RN - 11/23/2024 1:06 PM EDT Called pt via twister tender , no answer. Meter Maintenance Person left message that the nurse from [facility] was returning her call and to call us back at her earliest convenience. RE: Sleeping difficulty * Telephone Encounter - Yareli Billingsley - 11/23/2024 12:34 PM EDT Symptom: Sleeping Difficulty Outcome: Schedule an appointment to be seen within 24 hours Reason: This is the only possible outcome for this symptom The caller accepted this outcome. documented in this encounter Plan of Treatment Not on file documented as of this encounter Visit Diagnoses Not on filedocumented in this encounter Additional Health Concerns Assessment Noted Time PHQ-9 Depression Total Score: 3 08/08/20 24 11:59 AM EDT documented as of this encounter Care Teams Frog Catcher Relationship Specialty Start Date End Date Ligia Becerra MD [address] [place] [address] PCP - General Family Medicine 07/22/22 Jair Pro MD [address] [place] [address] Urology 07/24/24 Tim Herrera [address] [place] [address] Neurosurgery 07/24/24 Trung Slade MD [address]rd [place] [address] Gastroenterology 10/19/24 documented as of this encounter
--- OUTSIDE RECORDS SUMMARY | 2024-11-26 16:06 | XMS_ITS | Encounter Summary ---
Author Organization [employer] Address [address] [facility] 7t [place] [address] Care Team Providers Care Call Center Operator Name Role Phone Ligia Becerra MD Primary Care Provider [phone]- [phone] Jair Pro MD Unavailable [phone] Tim Herrera Unavailable Trung Slade MD Unavailable [phone] Reason for Visit * Reason Onset Date Comments Nurse Triage 09/15/2023 Encounter Details Date Type Department Care Team (Late st Contact Info) Description 09/15/2023 Telephone [facility] MEDICINE 230 [place], [place] [phone] Ligia Becerra MD [address] [place], [place] [phone] Nurse Triage Social History Tobacco Use Types [...] accepted this outcome Please contact pt at [phone] documented in this encounter Plan of Treatment Not on file documented as of this encounter Visit Diagnoses Not on filedocumented in this encounter Additional Health Concerns Assessment Noted Time PHQ-9 Depression Total Score: 18 023 3:56 PM EDT documented as of this encounter Care Teams Call Center Operator Relationship Specialty Start Date End Date Ligia Becerra MD [address] [place] [address] PCP - General Family Medicine 07/22/22 Jair Pro MD [address] [place] [address] Urology 07/24/24 Tim Herrera [address] [place] [address] Neurosurgery 07/24/24 Trung Slade MD [address] [place] [address]rd [place] [address] Gastroenterology 10/19/24 documented as of this encounter
--- OUTSIDE RECORDS SUMMARY | 2024-11-26 16:06 | XMS_ITS | Encounter Summary ---
Author Organization [employer] Address [address] [facility] 7t [place] [address] Care Team Providers Care Licensed Mental Health Professional Name Role Phone Ligia Becerra MD Primary Care Provider [phone] Jair Pro MD Unavailable Tim Herrera Unavailable [phone] Trung Slade MD Unavailable [phone] Reason for Visit * Reason Onset Date Comments Durable Medical Equipment 03/22/2024 Encounter Details Date Type Department Care Team (Late st Contact Info) Description 03/22/2024 Telephone [facility] MEDICINE 230 [place], [place] [phone] Ligia Becerra MD 230 [place] [address] Durable Medical Equipment Social History Tobacco Use [...] the past 12 months, has t he [employer] gas, oil or water company threatened to [...] Sopra Cream Recliner Please contact pt at [phone] documented in this encounter Plan of Treatment Not on file documented as of this encounter Visit Diagnoses Not on filedocumented in this encounter Additional Health Concerns Assessment Noted Time PHQ-9 Depression Total Score: 3 03/18/20 24 11:59 AM EDT documented as of this encounter Care Teams Licensed Mental Health Professional Relationship Specialty Start Date End Date Ligia Becerra MD 230 [place] [address] PCP - General Family Medicine 07/22/22 Jair Pro MD [address] [place] [address] Urology 07/24/24 Tim Herrera [address] [place] [address] Neurosurgery 07/24/24 Trung Slade MD [address]rd [place] [address] Gastroenterology 10/19/24 documented as of this encounter
--- OUTSIDE RECORDS SUMMARY | 2024-11-26 16:06 | XMS_ITS | Encounter Summary ---
Author Organization [employer] Address [address] [facility] 7t [place] [address] Care Team Providers Care Commercial Intern Name Role Phone Ligia Becerra MD Primary Care Provider [phone] Jair Pro MD Unavailable [phone] Tim Herrera Unavailable [phone] Trung Slade MD Unavailable Reason for Referral * Consultation (Routine) - Closed Specialty Diagnoses / Procedures Referred By Contac t Referred To Contact Physical Therapy Diagnoses Chronic bilateral thoracic back pain Bilateral deafness Ligia Becerra MD 230 [place] [address] Phone: tel: fax: [facility] Audiology [address] [place] Phone: tel: fax: Referral ID Status Reason Start Date Expiration Date V isits Requested Visits Authorized [id number] Closed Specialty Services Required 06/22/2024 06/22/2025 1 1 Encounter Details Date Type Department Care Team (Late st Contact Info) Description 06/17/2024 Orders Only [facility] 230 [place] [address] Ligia Becerra MD [address] [place], [place] [phone] Chronic bilateral thoracic back pain (Primary Dx); [...] documented as of this encounter Care Teams Commercial Intern Relationship Specialty Start Date End Date Ligia Becerra MD [address] [place] [address] PCP - General Family Medicine 07/22/22 Jair Pro MD [address] [place] [address] Urology 07/24/24 Tim Herrera [address] [place] [address] Neurosurgery 07/24/24 Trung Slade MD [address] 3rd [place] [address] Gastroenterology 10/19/24 documented as of this encounter
--- OUTSIDE RECORDS SUMMARY | 2024-11-26 16:06 | XMS_ITS | Encounter Summary ---
Author Organization [employer] Address [address] [facility] 7t [place] [address] Care Team Providers Care Printed Circuit Boards Stripper Etcher Name Role Phone Ligia Becerra MD Primary Care Provider [phone] Jair Pro MD Unavailable Tim Herrera Unavailable Trung Slade MD Unavailable [phone] Reason for Visit * Reason Onset Date Comments Durable Medical Equipment 06/02/2024 Encounter Details Date Type Department Care Team (Late st Contact Info) Description 06/02/2024 Telephone [facility] MEDICINE 230 [place] [address] Ligia Becerra MD 230 [place] [address] Durable Medical Equipment Social History Tobacco Use [...] any questions you can contact pt at [phone]. documented in this encounter Plan of Treatment Not on file documented as of this encounter Visit Diagnoses Not on filedocumented in this encounter Additional Health Concerns Assessment Noted Time PHQ-9 Depression Total Score: 3 03/18/20 24 11:59 AM EDT documented as of this encounter Care Teams Printed Circuit Boards Stripper Etcher Relationship Specialty Start Date End Date Ligia Becerra MD [address] [place] [address] PCP - General Family Medicine 07/22/22 Jair Pro MD [address] [place] [id number] Urology 07/24/24 Tim Herrera [address] [facility] [place] [id number] Neurosurgery 07/24/24 Trung Slade MD [address] [place] [id number] Gastroenterology 10/19/24 documented as of this encounter
--- OUTSIDE RECORDS SUMMARY | 2024-11-26 16:06 | XMS_ITS | Encounter Summary ---
Author Organization [employer] Address [address] [facility] 7t [place] [address] Care Team Providers Care Diamond Wheel Edger Name Role Phone Ligia Becerra MD Primary Care Provider [phone] Jair Pro MD Unavailable Tim Herrera Unavailable [phone] Trung Slade MD Unavailable [phone] Reason for Visit * Reason Onset Date Comments Medication Question 11/23/2024 Encounter Details Date Type Department Care Team (Late st Contact Info) Description 11/23/2024 Refill [facility] MEDICINE 230 [place], [place] [phone] Ligia Becerra MD 230 [place] [address] Insomnia, unspecified type Social History Tobacco Use Types Packs/Day Years [...] Miscellaneous Notes * Telephone Encounter - Mae Read RN - 11/25/2024 2:28 PM EDT Telephone call to pt to advise that trazodone medication sent to pharmacy. Pt verbalized understanding. * Addendum Note - Nohemy Verde RN - 11/25/2024 1:20 PM EDTAddended by: NOHEMY VERDE on: 11/25/2024 01:20 PM Modules accepted: Orders * Telephone Encounter - Nohemy Verde RN - 11/25/2024 1:01 PM EDT TC placed to patient [phone] in regards to below message. Patient reports the medication is not working for her. RN inquired on how patient is taking the medication. Patient reports she is taking the medication once daily at night time however she is still unable to sleep. Patient informed baclofen medication is not for sleep, instead it is for muscle spasms. RN reviewed chart and noticed patient was Rx'd trazodone 100mg from PCP appointment on 10/19/24. Patient reports she never received this medication. RN placed patient on hold and called [facility] pharmacy (where RX was sent) and they confirmed the medication was p/u on 10/19/24. Patient reports she does not recall p/u the medication. Patient advised she is most likely out of the medication at this time as the medication was only for a 1month supply. Patient is requesting a refill on trazodone medication. RN advised patient, RN will send medication refill request to PCP. Patient verbalized understanding. Patient also inquiring on MRI results which she reports were completed last week and she has not received the results. Patient [place] [facility] [facility] and patient had an MRI of lumbar spine on 11/09/24 which was ordered by Martir Wan the neuro regulatory law specialist. Patient reports she has an appointment with that provider at [facility] tomorrow and will discuss the MRI resu lts at the appointment. FYI-Patient was Rx'd baclofen on 09/23/[address] Dior in [facility] however that medication was discontinued by PCP on 10/19/24. * Telephone Encounter - Dao Viramontes - 11/25/2024 10:47 AM EDT Tc from pt returning call regarding medication baclofen (Lioresal) * Telephone Encounter - Eveline Moses RN - 11/23/2024 4:32 PM EDT TC placed to patient [phone] regarding below message. RN left VM for patient to Red team nurses. Pt to F/U PRN. TC placed to patient [phone] using night nurse regarding below message. RN informed patient to CB Red team nurses. Pt to F/U PRN. TC placed to patient friend(Heron) [phone] not on HIPAA regarding below message. RN unable toLM due to mailbox being full. * Telephone Encounter - Yareli Billingsley - 11/23/2024 12:35 PM EDT Tc from pt would like to discuss changing medication baclofen (Lioresal) 10 MG tablet documented in this encounter Plan of Treatment Not on file documented as of this encounter Visit Diagnoses Diagnosis Insomnia, unspecified type documented in this encounter Additional Health Concerns Assessment Noted Time PHQ-9 Depression Total Score: 3 03/18/20 24 11:59 AM EDT documented as of this encounter Care Teams Diamond Wheel Edger Relationship Specialty Start Date End Date Ligia Becerra MD [address] [place] [address] PCP - General Family Medicine 07/22/22 Jair Pro MD [address] [place] [address] Urology 07/24/24 Tim Herrera [address] [place] [address] Neurosurgery 07/24/24 Trung Slade MD [address] 3rd [place] [address] Gastroenterology 10/19/24 documented as of this encounter
--- OUTSIDE RECORDS SUMMARY | 2024-11-26 16:06 | XMS_ITS | Encounter Summary ---
Author Organization [employer] Address [address] [facility] 7t [place] [address] Care Team Providers Care Metal Bumper Name Role Phone Ligia Becerra MD Primary Care Provider [phone] Jair Pro MD Unavailable [phone] Tim Herrera Unavailable Trung Slade MD Unavailable [phone] Reason for Referral * Consultation (Routine) - Pending Review Specialty Diagnoses / Procedures Referred By Eve weiss Referred To Contact Family Medicine Diagnoses Lesion of skin of scalp Mary Sage NP 230 [place] [address] Phone: tel: fax: Referral ID Status Reason Start Date Expiration Date Visits Requested Visits Authorized [id number] Pending Review Specialty Services Required 11/22/2024 11/22/2025 1 1 Reason for Visit * Reason Comments Headache Encounter Details Date Type Department Care Team (Late st Contact Info) Description 11/22/2024 2:20 PM EDT Office Visit [facility] 230 [place] [address] Mary Sage NP [address] [place] [address] Vaginal discharge (Primary Dx); Dysuria; Lesion of skin of scalp; Intertrigo of genital labia Social History Tobacco Use Types Packs/Day Years [...] AM EDT documented as of this encounter Last Filed Vital Signs Vital Sign Reading Time Taken Comments Blood Pressure 98/60 11/22/2024 2:07 PM EDT Pulse 69 11/22/2024 2:07 PM EDT Temperature 36.6 ??C (97.8 ??F) 11/22/2024 2:07 PM ED T Respiratory Rate 18 11/22/2024 2:07 PM EDT Oxygen Saturation 95% 11/22/2024 2:07 PM EDT Inhaled Oxygen Concentration - - Weight - - Height - - Body Mass Index - - documented in this encounter Progress Notes * Mary Sage, JASON - 11/22/2024 2:20 PM EDT Subjective: Jacob Angeles is a 64 y.o. adult who presents to the office for a sick visit. HPI Itching on left of the scalp with a bump , very bothersome, no fever no exudate no chills , no pus palpable area on left side of scalp Reports moisture in groin that smells bad Patient Active Problem List Diagnosis Abdominal pain Anxiety Avitaminosis D Hepatitis B core antibody positive Hypertension Insomnia S/P TURP Deafness Gender dysphoria Personality disorder (CMS/HCC) Psychiatric disorder Chronic bilateral thoracic back pain Gammopathy with multiple M spikes BPH (benign prostatic hyperplasia) Class 2 severe obesity due to excess calories with serious comorbidity in adult, unspecified BMI (CMS/HCC) Metabolic disorder Androgenic alopecia Colon cancer screening Other specified health status Bradycardia Adjustment disorder with mixed anxiety and depressed mood Cardiac risk counseling Right shoulder pain Urinary retention Preop examination Tubular adenoma Vaginal discharge Dysuria Bumps on skin Lesion of skin of scalp Intertrigo of genital labia Review of Systems Constitutional: Negative for activity change and appetite change. Genitourinary: Negative for difficulty urinating and penile pain. Skin: Positive for color change. No Known Allergies Objective: Visit Vitals BP 98/60 (BP Location: Left arm, Patient Position: Sitting, BP Cuff Size: Adult) Pulse 69 Temp 97.8 ??F (36.6 ??C) (Temporal) Resp 18 SpO2 95% Smoking Status Never Physical Exam Constitutional: Appearance: She is obese. HENT: Head: Atraumatic. Eyes: Conjunctiva/sclera: Conjunctivae normal. Cardiovascular: Rate and Rhythm: Normal rate and regular rhythm. Pulmonary: Effort: Pulmonary effort is normal. Breath sounds: Normal breath sounds. Musculoskeletal: Cervical back: Neck supple. Skin: Findings: Lesion present. Comments: 3 mm rasied lesion left side of scalp, suspect seborrheic keratosis but pt is quite symptomatic Groin, maceration Neurological: Mental Status: She is alert. Assessment/Plan: Problem List Items Addressed This Visit Vaginal discharge - Primary Dysuria Relevant Medications ketoconazole (NIZOral) 2 % cream Other Relevant Orders POCT urinalysis dipstick manually resulted (Completed) Lesion of skin of scalp Current Assessment & Plan Suspect seborrheic lesion, will refer to derm as pt report itch is quite bothersome May treat with topical steroid for inflammation and itch in interim Relevant Medications clobetasol (Temovate) 0.05 % external solution Other Relevant Orders Referral to [facility] Derm Skin Adult Intertrigo of genital labia Current Assessment & Plan Trial ketoconazole, Relevant Medications ketoconazole (NIZOral) 2 % cream Current Outpatient Medications Medication Sig Dispense Refill clobetasol (Temovate) 0.05 % external solution Apply topically 2 times daily for 14 days. 120 mL 0 ketoconazole (NIZOral) 2 % cream Apply topically Once per day. 40 g 0 pantoprazole (ProtoNix) 40 MG EC tablet tamsulosin (Flomax) 0.4 MG 24 hr capsule Take 1 capsule (0.4 mg) by mouth Once per day. 90 capsule 3 terazosin (Hytrin) 2 MG capsule Take 2 mg by mouth at bedtime. traZODone (Desyrel) 100 MG tablet Take 1 tablet (100 mg) by mouth at bedtime. 30 tablet 0 No current facility-administered medications for this visit. Visit Conducted in: signlanguage Translation by: Provided by [email or web address] Interpreter Phone Service ID #number not noted before ASL off ipad documented in this encounter Miscellaneous Notes * Assessment & Plan Note - Mary Sage NP - 11/22/2024 7:25 PM EDTAssociated Problem(s): Intertrigo of genital labia Trial ketoconazole, * Assessment & Plan Note - Mary Sage NP - 11/22/2024 7:24 PM EDTAssociated Problem(s): Lesion of skin of scalp Suspect seborrheic lesion, will refer to derm as pt report itch is quite bothersome May treat with topical steroid for inflammation and itch in interim documented in this encounter Plan of Treatment Scheduled Referrals Name Type Priority Associated Diagnoses Orde r Schedule Referral to [facility] Derm Skin Adult Outpatient Referral Routine Lesion of skin of scalp Expected: 11/22/2024 (Approximate), Expires: 11/22/2025 documented as of this encounter Procedures Procedure Name Priority Date/Time Associated Diagnosis Comments POCT URINALYSIS DIPSTICK Routine 11/22/2024 2:27 PM EDT Dysuria documented in this encounter Results * POCT urinalysis dipstick manually resulted (11/22/2024 2:27 PM EDT) Color, UA Yellow Clarity, UA Clear Glucose, UA Negative Bilirubin, UA Negative Ketones, UA Negative Spec Grav, UA 1.025 Blood, UA Negative Negative, None Detected pH, UA 6.0 Protein, UA Negative Urobilinogen, UA 0.2 Leukocytes, UA Negative Negative, Rare, Trace Nitrite, UA Negative Negative, None Detected Urine 11/22/2024 2:27 PM EDT Mary Sage NP POINT OF CARE TEST ENTER/EDIT OR DERABLES Final Result documented in this encounter Visit Diagnoses Diagnosis Vaginal discharge- Primary Leukorrhea, not specified as infective Dysuria Lesion of skin of scalp Intertrigo of genital labia documented in this encounter Additional Health Concerns Assessment Noted Time PHQ-9 Depression Total Score: 3 03/18/20 24 11:59 AM EDT documented as of this encounter Care Teams Metal Bumper Relationship Specialty Start Date End Date Ligia Becerra MD [address] [place] [address] PCP - General Family Medicine 07/22/22 Jair Pro MD [address] [place] [address] Urology 07/24/24 Tim Herrera [address] [place] [address] Neurosurgery 07/24/24 Trung Slade MD [address]rd [place] [address] Gastroenterology 10/19/24 documented as of this encounter
--- OUTSIDE RECORDS SUMMARY | 2024-11-26 16:06 | XMS_ITS | Encounter Summary ---
Author Organization [employer] Address [address] [facility] 7t [place] [address] Care Team Providers Care Core Driller Helper Name Role Phone Ligia Becerra MD Primary Care Provider [phone]- [phone] Jair Pro MD Unavailable Tim Herrera Unavailable Trung Slade MD Unavailable [phone] Encounter Details Date Type Department Care Team (Late st Contact Info) Description 02/04/2023 Abstract [facility] MEDICINE 230 [place], [place] [phone] Ligia Becerra MD 230 [place], [place] [phone] Social History Tobacco Use Types Packs/Day Years [...] on filedocumented in this encounter Care Teams Core Driller Helper Relationship Specialty Start Date End Date Ligia Becerra MD [address] [place] [address] PCP - General Family Medicine 07/22/22 Jair Pro MD [address] [place] [address] Urology 07/24/24 Tim Herrera [address] [place] [address] Neurosurgery 07/24/24 Trung Slade MD [address]rd [place] [address] Gastroenterology 10/19/24 documented as of this encounter
--- OUTSIDE RECORDS SUMMARY | 2024-11-26 16:06 | XMS_ITS | Clinical Summary ---
Author Organization [employer] Address [address] [place] [address] 7 [place] [address] Care Team Providers Care Repossessor Name Role Phone Ligia Becerra MD Primary Care Provider [phone] Jair Pro MD Unavailable Tim Nolen Unavailable [phone] Trung Slade MD Unavailable [phone] Allergies No known active allergies Medications * This document contains information received from the source organization and may not represent a complete record from that organization. pantoprazole (ProtoNix) 40 MG EC tabletIndicatio ns:Abdominal pain, unspecified abdominal location 07/13/20 24 Active terazosin (Hytrin) 2 MG capsuleIndicati ons:Benign prostatic hyperplasia with urinary frequency Take 2 mg by mouth at bedtime. 03/11/20 24 Active tamsulosin (Flomax) 0.4 MG 24 hr capsuleIndicati ons:Benign prostatic hyperplasia with urinary frequency Take 1 capsule (0.4 mg) by mouth Once per day. 90 capsule 3 10/20/19 25 Active ketoconazole (NIZOral) 2 % creamIndication s:Dysuria,Inter tomás of genital labia Apply topically Once per day. 40 g 11/23/19 25 Active clobetasol (Temovate) 0.05 % external solutionIndicat ions:Lesion of skin of scalp Apply topically 2 times daily for 14 days. 120 mL 11/23/19 25 025 Active traZODone (Desyrel) 100 MG tabletIndicatio ns:Insomnia, unspecified type Take 1 tablet (100 mg) by mouth at bedtime. 30 tablet 11/26/19 25 025 Active traZODone (Desyrel) 100 MG tabletIndicatio ns:Insomnia, unspecified type Take 1 tablet (100 mg) by mouth at bedtime. 30 tablet 10/20/19 25 025 Discontinued(Re order (will not trigger notification to Pharmacy)) clobetasol (Temovate) 0.05 % external solutionIndicat ions:Lesion of skin of scalp Apply topically 2 times daily for 14 days. 120 mL 11/23/19 25 025 Discontinued ketoconazole (NIZOral) 2 % creamIndication s:Dysuria,Inter tomás of genital labia Apply topically Once per day. 40 g 11/23/19 25 025 Discontinued Active Problems Patient Care Coordination No te Formatting of this note migh t be different from the original. [facility] Stuart Striping Machine Operator: Yajaira, member services number [phone], provider services line, , option 4 Product Safety Compliance Leader [facility] Problem Noted Date Diagnosed Date Vaginal discharge 11/22/2024 Dysuria 11/22/2024 Bumps on skin 11/22/2024 Lesion of skin of scalp 11/22/2024 Assessment & Plan (11/22/2024 7:24 PM EDT): Suspect seborrheic lesion, will refer to derm as pt report itch is quite bothersome May treat with topical steroid for inflammation and itch in interim Intertrigo of genital labia 11/22/2024 Assessment & Plan (11/22/2024 7:25 PM EDT): Trial ketoconazole, Preop examination 10/19/2024 Overview (10/19/2024): Patient is [...] Patient will benefit from follow through with [facility] services and recommendations as well as continued calls to the [facility]. At this time Jacob Angeles meets criteria for Visit Diagnoses: Problem List Items Addressed This Visit Other Adjustment disorder with mixed anxiety and depressed mood Personality disorder (CMS/HCC) Patient ready to address current needs Yes Strengths-Ashley is able to advocate for her wants and needs. She is in the contemplation stage of change. PLAN: 1. Follow up with [facility]: Recommended for follow-up: As needed 2. Patient goal is to follow through with [facility] services and recommendations 3. Behavioral Recommendations a. OP therapy with [facility] b. Calling the [facility] daily Assessment & Plan (04/15/2023 1:06 PM [...] Patient will benefit from crisis evaluation with [facility] and fci placment. ?? At this time Jacob Angeles meets criteria for Visit Diagnoses: Problem List Items Addressed This Visit ? Other ?? Adjustment disorder with mixed anxiety and depressed mood ?? Patient ready to address current needs Yes ?? Strengths- Ashley is able to advocate for her wants and needs. She is in the contemplation stage of change. ?? PLAN: 1. Follow up with [facility]: Recommended for follow-up: As needed 2. Patient goal is to engage in crisis evaluation, OP therapy, psychiatry 3. Behavioral Recommendations a. [facility] b. Call [facility] daily at 9:00 AM for intake Assessment [...] of change. PLAN: 1. Follow up with [facility]: Recommended for follow-up: As needed 2. Patient goal is to engage in crisis evaluation, OP therapy, psychiatry 3. Behavioral Recommendations aRemberto [facility] evelyn Call Latosha Ramirez at 9:00 AM at [...] due after 03/18/25 -eye care facilitated by [facility] -dental home is [facility] -Healthcare proxy paperwork given 08/22/23, filed 03/18/24 Assessment & Plan (03/18/2024 11:39 AM EDT): -next PE due after 03/18/25 -eye care facilitated by [facility] -dental home is [facility] -Healthcare proxy paperwork given 08/22/23, filed [...] GI 09/17/21. I reached out to her ring sewer Ana Maria to assist her in following [...] 3:40 PM EST): I will be calling correctional case manager to discuss Pts option. Pt is [...] when offering services. -Team meeting pt and national account representative from safety, behavior health, case managment, viability and myself on 05/23/2023 done to reinforce which services to use when seeking assistance and setting up behavior expatiation when in the clinic. -[facility] ([facility]) FRAUD INVESTIGATOR [phone] Assessment & Plan (11/19/2023 4:15 PM EDT): [...] when offering services. -Team meeting pt and national account representative from safety, behavior health, case managment, viability and myself on 05/23/2023 done to reinforce which services to use when seeking assistance and setting up behavior expatiation when in the clinic. -[facility] ([facility]) FRAUD INVESTIGATOR [phone] Assessment & Plan (08/22/2023 9:06 AM EST): [...] when offering services. -Team meeting pt and national account representative from safety, behavior health, case managment, viability and myself on 05/23/2023 done to reinforce which services to use when seeking assistance and setting up behavior expatiation when in the clinic. -[facility] ([facility]) FRAUD INVESTIGATOR [phone] Assessment & Plan (08/13/2023 9:50 AM EST): [...] when offering services. -Team meeting pt and national account representative from safety, behavior health, case managment, viability and myself on 05/23/2023 done to reinforce which services to use when seeking assistance and setting up behavior expatiation when in the clinic. -[facility] ([facility]) FRAUD INVESTIGATOR [phone] Assessment & Plan (05/23/2023 1:14 PM EDT): [...] when offering services. -Team meeting pt and national account representative from safety, behavior health, case managment, viability and myself on 05/23/2023 done to reinforce which services to use when seeking assistance and setting up behavior expatiation when in the clinic. -[facility] ([facility]) FRAUD INVESTIGATOR [phone] Assessment & Plan (02/05/2023 11:15 AM EDT): [...] offering services. -Viability with Jose Ramos Jr. FRAUD INVESTIGATOR , text . Assessment & Plan (10/28/2022 [...] 12:26 PM EST): -psychological assessment with Wendy Rosas PhD. [...] 4:16 PM EDT): -psychological assessment with Wendy Rosas PhD. [...] 9:51 AM EST): -psychological assessment with Wendy Rosas [...] 9:28 AM EDT): -psychological assessment with Wendy Rosas [...] 9:25 AM EDT): -psychological assessment with Wendy Rosas [...] 10:39 AM EDT): -psychological assessment with Wendy Rosas [...] prescribed by [facility] but pt did not orange picker. -She returned to pain management 06/02/2023 and was referred to neurosurgery -seen by Dr. Tim Nolen MD, PhD , Spine Fellowship Trained Neurosurgeon, Director, [facility] 06/25/2023 -Pt offered a multilevel decompression of [...] prescribed by [facility] but pt did not orange picker. -She returned to pain management 06/02/2023 and was referred to neurosurgery -seen by Dr. Tim Nolen MD, PhD , Spine Fellowship Trained Neurosurgeon, Director, [facility] 06/25/2023 -Pt offered a multilevel decompression of [...] due to scheduling difficulties completed pre op 3/11/25. Patient is acceptable risk for surgery. Ok [...] prescribed by [facility] but pt did not orange picker. -She returned to pain management 06/02/2023 and was referred to neurosurgery -seen by Dr. Tim Nolen MD, PhD , Spine Fellowship Trained Neurosurgeon, Director, [facility] -Ptoffered a multilevel decompression of the above-mentioned [...] prescribed by [facility] but pt did not orange picker. -She returned to pain management 06/02/2023 and was referred to neurosurgery -seen by Dr. Tim Nolen MD, PhD , Spine Fellowship Trained Neurosurgeon, Director, [facility] -Ptoffered a multilevel decompression of the above-mentioned [...] prescribed by [facility] but pt did not orange picker. -She returned to pain management 06/02/2023 and was referred to neurosurgery -seen by Dr. Tim Nolen MD, PhD , Spine Fellowship Trained Neurosurgeon, Director, [facility] -Ptoffered a multilevel decompression of the above-mentioned [...] prescribed by [facility] but pt did not orange picker. -She returned to pain management 06/02/2023 and was referred to neurosurgery -seen by Dr. Tim Nolen MD, PhD , Spine Fellowship Trained Neurosurgeon, Director, [facility] -Ptoffered a multilevel decompression of the above-mentioned [...] prescribed by [facility] but pt did not orange picker. -She returned to pain management 06/02/2023 and was referred to neurosurgery -seen by Dr. Tim Nolen MD, PhD , Spine Fellowship Trained Neurosurgeon, Director, [facility] -Ptoffered a multilevel decompression of the above-mentioned [...] prescribed by [facility] but pt did not orange picker. -She returned to pain management 06/02/2023 and was referred to neurosurgery -seen by Dr. Tim Nolen MD, PhD , Spine Fellowship Trained Neurosurgeon, Director, [facility] -Ptoffered a multilevel decompression of the above-mentioned [...] proscribed cyclobenzaprine. I reached out to her ring sewer Ana Maria to assist her in following [...] 12/30/2014 Overview (08/13/2023): Audiology appointment 03/02/2023. -Viability national account representative Nany ([facility]) FRAUD INVESTIGATOR [phone] Assessment & Plan (05/19/2024 3:18 PM EDT): Audiology appointment 03/02/2023. -[facility] national account representative N[facility] ([facility]) FRAUD INVESTIGATOR [phone] Assessment & Plan (03/18/2024 11:35 AM EDT): Audiology appointment 03/02/2023. -[facility] national account representative N[facility] ([facility]) FRAUD INVESTIGATOR [phone] Assessment & Plan (11/19/2023 4:14 PM EDT): Audiology appointment 03/02/2023. -[facility] national account representative N[facility] ([facility]) FRAUD INVESTIGATOR [phone] Assessment & Plan (08/22/2023 9:06 AM EST): Audiology appointment 03/02/2023. -[facility] national account representative Nany ([facility]) FRAUD INVESTIGATOR [phone] Assessment & Plan (08/13/2023 9:48 AM EST): Audiology appointment 03/02/2023. -[facility] national account representative Nany ([facility]) FRAUD INVESTIGATOR [phone] Assessment & Plan (05/23/2023 1:16 PM EDT): Audiology appointment 03/02/2023. -[facility] national account representative Nany ([facility]) FRAUD INVESTIGATOR [phone] Assessment & Plan (02/05/2023 11:14 AM EDT): Audiology appointment 03/02/2023. Viability with Jose Ramos Jr. FRAUD INVESTIGATOR , text . Assessment & Plan (12/12/2022 [...] for appointment. I have asked her Viability ring sewer to assist her. -CT 12/2021 Gallbladder surgically [...] for appointment. I have asked her Viability ring sewer to assist her. -CT 12/2021 Gallbladder surgically [...] for appointment. I have asked her Viability ring sewer to assist her. -CT 12/2021 Gallbladder surgically [...] for appointment. I have asked her Viability ring sewer to assist her. -CT 12/2021 Gallbladder surgically [...] for appointment. I have asked her Viability ring sewer to assist her. -CT 12/2021 Gallbladder surgically [...] for appointment. I have asked her Viability ring sewer to assist her. -CT 12/2021 Gallbladder surgically [...] for appointment. I have asked her Viability ring sewer to assist her. -CT 12/2021 Gallbladder surgically [...] for appointment. I have asked her Viability ring sewer to assist her. -CT 12/2021 COMPARISON: Multiple [...] -GI in 2015 felt some of the hayde is hyperalgesia [...] and financial insecurity. Patient will benefit from [facility] referral and OP therapy. At this time Jacob Angeles meets criteria for Visit Diagnoses: Problem List Items Addressed This Visit Other Anxiety Personality disorder (CMS/HCC) Patient ready to address current needs Yes Strengths-Ashley is a strong advocate for herself and in the contemplation stage of change. PLAN: 1. Follow up with [facility]: Recommended for follow-up: 03/20/23 with Larissa Robertson [...] Encounters Date Type Department Care Team Description 11/23/2024 Refill [facility] [address] [place] [address] Ligia Becerra MD Insomnia, unspecified type 11/23/2024 Telephone [facility] [address] [place] [address] Ligia Becerra MD Nurse Triage 11/22/2024 2:20 PM EDT Office Visit [facility] [address] [place] [address] Graef, Mary, CORE SETTER Vaginal discharge (Primary Dx); Dysuria; Lesion of skin of scalp; Intertrigo of genital labia 11/09/[address] [address] Ligia Becerra MD Results 10/20/2024 Patient Outreach [address] [address] Ligia Becerra MD Care Coordination ([facility] outreach for [facility] transportation needs-referral completed /) 10/20/[address] [address] Ligia Becerra MD PT1 10/19/2024 3:20 PM EDT Office Visit [facility] [address] [place] [address] Ligia Becerra MD Chronic bilateral thoracic back pain (Primary Dx); Preop examination; Lower abdominal pain; Benign prostatic hyperplasia with urinary frequency; Insomnia, unspecified type; Colon cancer screening 10/19/[address] [address] Ligia Becerra MD 10/18/2024 Refill [facility] [address] [address] Joselo Esparza MD 10/18/[address] [address] Ligia Becerra MD Nurse Triage 10/06/2024 Telephone [facility] [address] [place] [address] Mayte Duncan 09/23/2024 4:00 PM EST Office Visit [facility] [address] [address] Rectal bleeding (Primary Dx); Abdominal bloating; Chronic bilateral low back pain with bilateral sciatica 09/23/[address] [address] Ligia Becerra MD Nurse Triage 09/20/[address] [address] Ligia Becerra MD Medication Question 09/17/2024 Telephone [facility] [address] [place] [address] Concepción Perera [place] chartprep from Last 3 Months Immunizations Name Administration [...] your housing situation today? I have jodie sing 05/26/[address] you li [...] DIPSTICK Routine 11/22/2024 2:27 PM EDT Dysuria HM COLONOSCOPY Routine 10/19/2024 7:27 PM EDT [...] dipstick manually resulted (11/22/2024 2:27 PM EDT) Only the most recent of2 resultswithin the time period is included. Color, UA Yellow Clarity, UA Clear Glucose, UA Negative Bilirubin, UA Negative Ketones, UA Negative Spec Grav, UA 1.025 Blood, UA Negative Negative, None Detected pH, UA 6.0 Protein, UA Negative Urobilinogen, UA 0.2 Leukocytes, UA Negative Negative, Rare, Trace Nitrite, UA Negative Negative, None Detected Urine 11/22/2024 2:27 PM EDT Mary Sage NP POINT OF CARE TEST ENTER/EDIT OR DERABLES Final Result * (ABNORMAL) Colonoscopy (07/02/2024) Colonoscopy Abnormal( A) Normal Comment:tubular adenoma with Dr. Salde Historical Provider HEALTH MAINTENANCE Final Result * Hepatitis C Antibody with Reflex to HCV, RNA, Quantitative, Real-Time PCR (07/29/2022 11:16 AM EST) Pathologist [facility] Hepatitis C Antibody NON-REACT MOE NON-REACT MOE [employer] Index 0.06 <1.00 [employer] Comment: HCV antibody was non-reactive. There is no laboratory evidence of HCV infection. In most cases, no further action is required. However, if recent HCV exposure is suspected, a test for HCV RNA (test code 85633) is suggested. For additional information please refer to http://education.[employer]/faq/DGM13d2 (This link is being provided for informational/ educational purposes only.) Blood Venous blood specimen / Unknown 07/29/2022 11:16 AM EST 07/29/2022 11:17 AM EST Narrative [facility] - 08/02/2022 10:49 PM EST FASTING:YES FASTING: YES Ligia Becerra MD LAB BLOOD ORDERABLES Final Result [address], [place] [address] [employer] [address] [facility], ([address]) [place] [address] * (ABNORMAL) Lipid Panel, Standard (07/29/2022 11:16 AM EST) [facility] Cholesterol, Total 130 <200 mg/dL [employer] HDL Cholesterol 29(L) > OR = 40 mg/dL [employer] Triglycerides 80 <150 mg/dL [employer] [place] [employer] LDL Cholesterol 84 mg/dL (calc) [employer] Comment: Reference range: <100 Desirable range <100 mg/dL for primary prevention; ?? <70 mg/dL for patients with CHD or diabetic patients with > or = 2 CHD risk factors. LDL-C is now calculated using the Aria calculation, which is a validated novel method providing better accuracy than the Friedewald equation in the estimation of LDL-C. Barrington SS et al. EITAN. 2013;310(19): 7173-7956 (http://education.[employer].Advise Only/faq/IPZ634) Chol/HDLC Ratio 4.5 <5.0 (calc) [facility] Non-HDL Cholesterol 101 <130 mg/dL (calc) [facility] Comment: For patients with diabetes plus 1 major ASCVD risk factor, treating to a non-HDL-C goal of <100 mg/dL (LDL-C of <70 mg/dL) is considered a therapeutic option. Blood Venous blood specimen / Unknown 07/29/2022 11:16 AM EST 07/29/2022 11:17 AM EST Narrative [facility] - 08/02/2022 10:49 PM EST FASTING:YES FASTING: YES us Ligia Becerra MD LAB BLOOD ORDERABLES Final Result Performing Organization Address City/State/[facility] Co de Phone Number [facility] [address], [place] [address] [employer] [place] [employer] [address] [facility], ([address]) [place] [address] from Last 3 Months or Most Recently Relevant to Health Maintenance Insurance [id number] [employer] OPTIONS (HMO D-SNP) [place] [id number] DENTAL - [facility] Advance Directives Documents on File Type Date Recorded Patient Validation Software Facilitator Expl anation Advance Directives and Living Will 03/23/2024 10:24 AM Health Care Proxy Care Teams Repossessor Relationship Specialty Start Date End Date Mariam, MD Ligia [address] [place] [address] PCP - General Family Medicine 07/22/22 Jair Pro MD [address] [place] [address] Urology 07/24/24 Tim Nolen [address] [place] [address] Neurosurgery 07/24/24 Trung Slade MD [address] 3rd Floor [place], [place] Gastroenterology 3/11/25
--- OUTSIDE RECORDS SUMMARY | 2024-11-26 16:06 | XMS_ITS | Clinical Summary ---
Author Organization [facility] it Address [address] [place] [address] Care Team Providers Care Taproom Attendant Name Role Phone Unavailable Primary Care Provider [...]
--- OUTSIDE RECORDS SUMMARY | 2024-11-26 16:08 | XMS_ITS | Encounter Summary ---
Author Organization [employer] Address [address] [facility] [address] [address] Care Team Providers Care Relocation Services Specialist Name Role Phone Ligia Becerra MD Primary Care Provider [phone] Jair Pro MD Unavailable [phone] Tim Herrera Unavailable Trung Slade MD Unavailable Reason for Visit * Reason Onset Date Comments returnin call back 09/17/2022 Encounter Details Date Type Department Care Team (Late st Contact Info) Description 09/17/2022 Telephone [facility] [address] [place], [place] [phone] Ligia Becerra MD [address] [place] [address] returnin call back Social History Tobacco Use [...] EST Tc from pt returning phone call, newswriter see's that provider would like to schedule a 30 min appt inperson with pt. Please contact pt at [phone] documented in this encounter Plan of Treatment Not on file documented as of this encounter Visit Diagnoses Not on filedocumented in this encounter Care Teams Relocation Services Specialist Relationship Specialty Start Date End Date Ligia Becerra MD [address] [place] [address] PCP - General Family Medicine 07/22/22 Jair Pro MD [address] [place] [address] Urology 07/24/24 Tim Herrera [address] [place] [address] Neurosurgery 07/24/24 Trung Slade MD [address] [place] [address] Gastroenterology 10/19/24 documented as of this encounter
--- OUTSIDE RECORDS SUMMARY | 2024-11-26 16:08 | XMS_ITS | Encounter Summary ---
Author Organization [employer] Address [address] [facility] 7t [place] [address] Care Team Providers Care Master Esthetician Name Role Phone Ligia Becerra MD Primary Care Provider [phone] Jair Pro MD Unavailable Tim Herrera Unavailable [phone] Trung Slade MD Unavailable [phone] Reason for Visit * Reason Onset Date Comments Call back request 08/14/2023 Encounter Details Date Type Department Care Team (Late st Contact Info) Description 08/14/2023 Telephone [facility] [address] [place], [place] [phone] Ligia Becerra MD [address] [place] [address] Call back request Social History Tobacco Use [...] 3:00 PM EST Tc from pt via [employer] interpretor #[id number] requesting call back wanting to speak with provider. Pt didn't want to information regarding the call, she stated pcp knows what's going on. Please contact pt at [phone]. documented in this encounter Plan of Treatment Not on file documented as of this encounter Visit Diagnoses Not on filedocumented in this encounter Additional Health Concerns Assessment Noted Time PHQ-9 Depression Total Score: 18 023 3:56 PM EDT documented as of this encounter Care Teams Master Esthetician Relationship Specialty Start Date End Date Ligia Becerra MD [address] [place] [address] PCP - General Family Medicine 07/22/22 Jair Pro MD [address] [place] [address] Urology 07/24/24 Tim Herrera [address] [place] [address] Neurosurgery 07/24/24 Trung Slade MD [address] [place] [address] Gastroenterology 10/19/24 documented as of this encounter
--- OUTSIDE RECORDS SUMMARY | 2024-11-26 16:08 | XMS_ITS | Encounter Summary ---
Author Organization [facility] Address [address] [place] [address] [facility] [place] [address] Care Team Providers Care Tunnel Drier Operator Name Role Phone Ligia Becerra MD Primary Care Provider Jair Pro MD Unavailable [phone] Tim Herrera Unavailable Trung Slade MD Unavailable [phone] Encounter Details Date Type Department Care Team (Latest Contact Info) Description 06/19/2022 Abstract [facility] CONVERSIONS Dental, Provider, DDS Social History [...] on filedocumented in this encounter Care Teams Tunnel Drier Operator Relationship Specialty Start Date End Date Ligia Becerra MD [address] [place] [address] PCP - General Family Medicine 07/22/22 Jair Pro MD [address] [place] [address] Urology 07/24/24 Tim Herrera [address] [place] [address] Neurosurgery 07/24/24 Trung Slade MD [address] 3rd [place] [address] Gastroenterology 10/19/24 documented as of this encounter
--- OUTSIDE RECORDS SUMMARY | 2024-11-26 16:08 | XMS_ITS | Encounter Summary ---
Author Organization [employer] Address 75 [facility] 7 [place] [address] Care Team Providers Care Small Products I Assembler Name Role Phone Ligia Becerra MD Primary Care Provider [phone]- [phone] Jair Pro MD Unavailable Tim Herrera Unavailable [phone] Trung Slade MD Unavailable [phone] Encounter Details Date Type Department Care Team (Late st Contact Info) Description 08/13/2022 Orders Only [facility] MEDICINE 230 [place] [address] Ligia Becerra MD 230 [place] [address] Social History Tobacco Use Types Packs/Day Years [...] on filedocumented in this encounter Care Teams Small Products I Assembler Relationship Specialty Start Date End Date Ligia Becerra MD [address] [place] [address] PCP - General Family Medicine 07/22/22 Jair Pro MD [address] [place] [address] Urology 07/24/24 Tim Herrera [address] [place] [address] Neurosurgery 07/24/24 Trung Slade MD [address] 3rd [place] [address] Gastroenterology 10/19/24 documented as of this encounter
--- OUTSIDE RECORDS SUMMARY | 2024-11-26 16:08 | XMS_ITS | Encounter Summary ---
Author Organization [employer] Address 75 [facility] 7t [place] [address] Care Team Providers Care Absorption Plant Operator Name Role Phone Ligia Becerra MD Primary Care Provider [phone] Jair Pro MD Unavailable Tim Herrera Unavailable Trung Slade MD Unavailable [phone] Reason for Visit * Reason Onset Date Comments Nurse Triage 08/15/2023 Encounter Details Date Type Department Care Team (Late st Contact Info) Description 08/15/2023 Telephone [facility] MEDICINE 230 [place], [place] [phone] Ligia Becerra MD 230 [place], [place] [phone] Nurse Triage Social History Tobacco Use Types [...] documented as of this encounter Care Teams Absorption Plant Operator Relationship Specialty Start Date End Date Ligia Becerra MD [address] [place] [address] PCP - General Family Medicine 07/22/22 Jair Pro MD [address] [place] [address] Urology 07/24/24 Tim Herrera [address] [place] [address] Neurosurgery 07/24/24 Trung Slade MD [address] 3rd Floor [place] [address] Gastroenterology 10/19/24 documented as of this encounter
--- OUTSIDE RECORDS SUMMARY | 2024-11-26 16:08 | XMS_ITS | Encounter Summary ---
Author Organization [employer] Address 75 [facility] 7t [place] [address] Care Team Providers Care Nurse Behavioral Health Care Name Role Phone Ligia Becerra MD Primary Care Provider [phone]- [phone] Jair Pro MD Unavailable [phone] Tim Herrera Unavailable [phone] Trung Slade MD Unavailable [phone] Encounter Details Date Type Department Care Team (Late st Contact Info) Description 07/30/2023 Telephone [facility] MEDICINE 230 [place], [place] [phone] Ligia Becerra MD 230 [place] [address] Social History Tobacco Use Types Packs/Day Years [...] documented as of this encounter Care Teams Nurse Behavioral Health Care Relationship Specialty Start Date End Date Ligia Becerra MD [address] [place] [address] PCP - General Family Medicine 07/22/22 Jair Pro MD [address] [place] [address] Urology 07/24/24 Tim Herrera [address] [place] [address] Neurosurgery 07/24/24 Trung Slade MD [address] 3rd [place] [address] Gastroenterology 10/19/24 documented as of this encounter
--- OUTSIDE RECORDS SUMMARY | 2024-11-26 16:08 | XMS_ITS | Encounter Summary ---
Author Organization [employer] Address 75 [facility] 7t [place] [address] Care Team Providers Care City Planning Engineer Name Role Phone Ligia Becerra MD Primary Care Provider [phone]- [phone] Jair Pro MD Unavailable Tim Herrera Unavailable [phone] Trung Slade MD Unavailable [phone] Reason for Visit * Reason Onset Date Comments Med Refill 07/18/2023 Encounter Details Date Type Department Care Team (Late st Contact Info) Description 07/18/2023 Telephone [facility] MEDICINE 230 [place], [place] [phone] Ligia Becerra MD 230 [place] [address] Med Refill Social History Tobacco Use Types [...] Strength) 500 MG tablet Please sent to [facility] documented in this encounter Plan of Treatment Not on file documented as of this encounter Visit Diagnoses Not on filedocumented in this encounter Additional Health Concerns Assessment Noted Time PHQ-9 Depression Total Score: 18 023 3:56 PM EDT documented as of this encounter Care Teams City Planning Engineer Relationship Specialty Start Date End Date Ligia Becerra MD 230 [place] [address] PCP - General Family Medicine 07/22/22 Jair Pro MD [address] [place] [address] Urology 07/24/24 Tim Herrera [address] [place] [address] Neurosurgery 07/24/24 Trung Slade MD [address] 3rd [place] [address] Gastroenterology 10/19/24 documented as of this encounter
[2024-11-26 17:49] LABS: Prostate Specific Antigen 2.68 ng/mL (<0.05-4.0)
== END 2024-11-26 13:22 | disposition home or self-care (01) ==
LOC: HO.HOSX 13:21
PROVIDERS: Family Medicine; Visit Provider Physician Assistant
DX: M48.062 Spinal stenosis, lumbar region with neurogenic claudication (principal); N40.1 Benign prostatic hyperplasia with lower urinary tract symptoms; R35.0 Frequency of micturition; Z12.5 Encounter for screening for malignant neoplasm of prostate
CPT/HCPCS: 36415; 72110; 84153; 99212

== ENCOUNTER 2024-11-26 13:21 | Outpatient (AMB) | payer OTHER, SELFPAY ==
--- OUTSIDE RECORDS SUMMARY | 2024-11-26 13:49 | XMS_ITS | Continuity of Care Document ---
Author Organization [facility] Address [address] [place] [address] Phone Care Team Providers Care Application Support Analyst Name Role Phone Unavailable Unavailable Unavailable Advance Directives Directive Yes / No Effective Date File Name No Information Encounters Encounter Description Practice Location Reason(s) For Visit Diagnoses Date Provider Providers Copied on Encounter [facility], [address] [place] [address], [address], [place] tel:[phone] [facility] Behavioral Health NO SHOW (chief complaint) No Information 9 No Information Family History Family Member Type Diagnosis Age At Onset No Information Payers Payer name Insurance type Covered constitution party ID Authoriza tion(s) No Information Social History Type Description Quantity Date Captured Comments Sex Male Smoking Status No Information Sexual Orientation Lesbian, dia or homosexual Gender Identity Zneobg-zm-Yoof (FTM) /Transgender Male/Trans Man Chief Complaint And [...]
--- OUTSIDE RECORDS SUMMARY | 2024-11-26 13:49 | XMS_ITS | Clinical Summary ---
Author Organization [facility] it Address [address] [place] [address] Care Team Providers Care Gear Changer Name Role Phone Unavailable Primary Care Provider [...] 07/09/2022 Falls Risk Assessment 2023 COVID-19 Vaccine (2023-2 5 season) 2024 Influenza Vaccine (Season Ended) 2025 RSV Immunization Adult Patie nts (1 - 1-dose 75+ series) 2033 HIB [...] age to complete this topic Meningococcal B Vaccine Aged Out No l onger eligible based on patient's age to complete this topic RSV Immunization Patients Un angie 20 months Aged Out No longer eligible b ased on patient's age to complete this topic Varicella Vaccines Aged Out No longer eligible based on patient's age to complete this topic
--- NOTE | 2024-11-26 15:42 | HO.SPINEOV ---
Intake Visit Reasons: MRI f/u with in office Intake Note: Mr. Long is here today to F/u on the results to his MRI. Ice Cutter Required: Yes Ice Cutter Name: Tablet Allergies No Known Allergies [No Known Allergies*] Allergy (Verified 09/06/24 13:36) Assessment & Plan Assessment & Plan (1) Spinal stenosis of lumbar region with neurogenic claudication: Code(s): M48.062 - Spinal stenosis, lumbar region with neurogenic claudication Category: Medical (2) Upper extremity weakness: Code(s): R29.898 - Other symptoms and signs involving the musculoskeletal system Category: Medical (3) Thoracic myelopathy: Code(s): M47.14 - Other spondylosis with myelopathy, thoracic region Category: Medical Plan Mrs Long is here in follow-up. She just underwent an MRI of her lumbar spine at [facility] and here to follow-up. It does show lateral recess stenosis at L4-5, and moderate to severe stenosis at L2-3. Last time I saw her she was complaining of back pain and left leg pain. She is now back today with a different story. This was done with the fire extinguisher repairer inspector sign language [id number]. She is now complaining of also midthoracic pain with feelings of pain radiating out along her ribs as well as feelings of numbness in her anterior thigh and trouble walking with spasms of her legs. This is in addition to the previous left leg pain she was describing to me which is going down the outer part of her leg. I examined her again, she is able to stand up on her own and show me that she does report some midthoracic pain. Motor examination of upper extremities reveals some weakness of the hands in the right triceps. She is also demonstrating hyperreflexia on the left side with clonus in her left foot and Lucas's sign in her left hand. I explained to her that I think we need to take a step back in light of these new symptoms and obtain a standing x-ray with flexion-extension views as well as a cervical and thoracic MRI to rule out myelopathy. Once these things are completed I will see her back in the office. Do think the patient ultimately will undergo lumbar decompression, possibly at the L2-3 and L4-5 levels, but we need to exclude these other issues as a matter of precaution before surgery. Total amount of time spent in this visit was 20 minutes in discussion of symptoms, lumbar imaging results and subsequent plan of care Martir Herrera MD,PhD [facility] Orders: Orders XR lumbar spine 4V min Today M48.062 - Spinal stenosis, lumbar region with neurogenic claudication MR thoracic spine wo con Today M47.14 - Other spondylosis with myelopathy, thoracic region MR cervical spine wo con Today R29.898 - Other symptoms and signs involving the musculoskeletal system Coding Level of Care Code Est Pt Level 3 (55322) Diagnoses Spinal stenosis of lumbar region with neurogenic claudication M48.062 Upper extremity weakness R29.898 Thoracic myelopathy M47.14
== END 2024-11-26 16:04 | disposition home or self-care (01) ==
LOC: HO.HNS 13:22
PROVIDERS: Visit Provider Physician Assistant
DX: M48.062 Spinal stenosis, lumbar region with neurogenic claudication (principal); R29.898 Other symptoms and signs involving the musculoskeletal system; M47.14 Other spondylosis with myelopathy, thoracic region
CPT/HCPCS: 99213

== ENCOUNTER → 2024-11-26 16:07 | Outpatient (BNV) | payer OTHER, SELFPAY | PROVIDERS: Visit Provider Radiology Diagnostic Radiology | DX: M48.062 Spinal stenosis, lumbar region with neurogenic claudication (principal); M47.816 Spondylosis without myelopathy or radiculopathy, lumbar region | CPT/HCPCS: 72110 ==

== ENCOUNTER 2024-12-03 18:39 | Outpatient (REF) | payer OTHER, SELFPAY ==
--- NOTE | ~2024-12-03 | MR_ITS ---
EXAMINATION: MR THORACIC SPINE WITHOUT CONTRAST CLINICAL INFORMATION: Other spondylosis with myelopathy, thoracic spine. COMPARISON: None available. TECHNIQUE: MRI of the thoracic spine was obtained using routine sequences without contrast. FINDINGS: No bone marrow STIR signal abnormality. Bone marrow inhomogeneity. Multilevel marginal osteophyte formation and disc desiccation. There is 1-2 mm retrolisthesis, T10-11 and T11-12. The thoracic spinal cord demonstrates a 1 mm hyperintense T2/CSF signal in the center at T5- 7 segment. T1-2: No disc herniation. No cord compression. T2-3: No disc herniation. No cord compression. T3-4: No disc herniation. No cord compression. T4-5: Left subarticular broad-based disc protrusion. No cord compression. T5-6: No disc herniation. No cord compression. T6-7: Right subarticular disc protrusion. No cord compression. T7-8: Central disc protrusion. No cord compression. T8-9: Right subarticular broad-based disc protrusion. No cord compression. T9-10: Bilateral facet joint hypertrophy. Broad-based disc bulging. No cord compression. T10-11: Bilateral facet joint hypertrophy. No cord compression. T11-12: Broad-based disc bulging. Facet joint hypertrophy. CSF effacement of the thecal sac. Questionable right dorsal hyperintense T2 cord signal.. T12-L1: Broad-based disc bulging. Facet joint and ligamentum flavum hypertrophy. CSF effacement of the thecal sac. No prevertebral compartment hematoma, mass or fluid collection. MR/MR thoracic spine wo con IMPRESSION: Multilevel spondylosis resulting in right 1 retrolisthesis T10-11 and T11-12 and central spinal canal stenosis questionable cord edema and or myelopathy right dorsal spinal cord T12 level. Electronically signed by: Lance Chang MD 12/07/2024 09:47 AM EDT
--- NOTE | ~2024-12-03 | MR_ITS ---
EXAMINATION: MR CERVICAL SPINE WITHOUT CONTRAST CLINICAL INFORMATION: Other symptoms and signs involving the musculoskeletal system. Right upper extremity weakness. COMPARISON: None available. TECHNIQUE: MRI of the cervical spine was obtained using routine sequences without contrast. FINDINGS: Status post surgical changes posterior elements from C3 to C6 likely bilateral laminectomies and resected posterior spinous processes. Craniocervical junction is intact. There are multiple, both hemicords hyperintense T2 STIR signal abnormalities with associated volume loss extending throughout the cervical spinal cord from the C3-4 to C6-7 levels. Multilevel marginal osteophyte formation and disc desiccation C2-3, to T3-4. No bone marrow STIR signal abnormality. Grade 1 retrolisthesis, C3-4 and C6-7 levels. C2-3: Broad-based disc osteophyte complex formation. Facet joint hypertrophy. No cord compression. No gross neuroforamina stenosis. C3-4: Postsurgical changes. Bilateral neuroforamina stenosis on a degenerative basis. C4-5: No cord compression. Bilateral neuroforamina stenosis on a degenerative basis. C5-6: No cord compression. Bilateral neuroforamina stenosis on a degenerative basis. C6-7: Broad-based disc osteophyte complex formation abutting the cord. Bilateral neuroforamina stenosis on a degenerative basis. C7-T1: No disc herniation. No cord compression. Bilateral neuroforamina narrowing on a degenerative basis. No prevertebral compartment hematoma, mass or fluid collection. Flow-void signal within the main vessels is normal. Codominant vertebral arteries. MR/MR cervical spine wo con IMPRESSION: Multilevel cervical spondylosis resulting in spondylitic myelopathy from C3 to C6 7 levels. Multilevel bilateral neuroforamina stenosis C3-4 to C6-7 on a degenerative basis. Electronically signed by: Lance Chang MD 12/07/2024 08:46 AM EDT
--- OUTSIDE RECORDS SUMMARY | 2024-12-03 18:42 | XMS_ITS | Encounter Summary ---
Author Organization [employer] Address 75 [facility] 7t [place] [address] Care Team Providers Care Shine Worker Name Role Phone Ligia Becerra MD Primary Care Provider [phone]- [phone] Jair Pro MD Unavailable Tim Herrera Unavailable Trung Slade MD Unavailable [phone] Reason for Visit * Reason Comments Med Refill Encounter Details Date Type Department Care Team (Late st Contact Info) Description 10/18/[address] [facility] 230 [place], [place] [phone] Name, MD Joselo [address] [place] [address] Social History Tobacco Use Types Packs/Day Years [...] documented as of this encounter Care Teams Shine Worker Relationship Specialty Start Date End Date Ligia Becerra MD [address] [place] [address] PCP - General Family Medicine 07/22/22 Jair Pro MD [address] [place] [address] Urology 07/24/24 Tim Herrera [address] [place] [address] Neurosurgery 07/24/24 Trung Slade MD [address]rd [place] [address] Gastroenterology 10/19/24 documented as of this encounter
--- OUTSIDE RECORDS SUMMARY | 2024-12-03 18:42 | XMS_ITS | Patient Health Record ---
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) Active confirmed Problem [id number] Bilateral hip joint arthritis (M16.0) Active confirmed Problem 3465252 Spondylosis (M47.9) Active confirmed Problem 62519712 Unsteady gait when walking (R26.81) Active confirmed Plan Of Treatment Pending Test Test Name Order Date URINALYSIS, COMPLETE 10/19/2020 Insurance Providers Payer Name Payer Address Payer Phone Subscriber Number Group Number Insured Name Patient Relationship to Insured Coverage Start Date Coverage End Date [employer] Plans [address] [place] [address] [id number] Jacob Long Self - patient is the insured [facility] SECONDARY [address] [place], [place] [phone] [id number] Ethan Jacob Self - patient is the insured Dental [employer] Medicare Advantage - [facility] [address] [place] [address] [phone] [id number] Ethan Jacob Self - patient is the insured 2 DENTAL Medicaid SECONDARY [address] [place] [address] [phone] [id number] EthanGibsonJacob Self - patient is the insured Medical (General) History Medical History History ICD Code anxiety Surgical History Surgery Date(Month/Year) spinal surgery 2019 Hospitalization History Reason Date(Month/Year) see above
--- OUTSIDE RECORDS SUMMARY | 2024-12-03 18:42 | XMS_ITS | Encounter Summary ---
Author Organization [employer] Address 75 [facility] [place] [address] Care Team Providers Care Linen Supervisor Name Role Phone Ligia Becerra MD Primary Care Provider [phone]- [phone] Jair Pro MD Unavailable [phone] Tim Herrera Unavailable Trung Slade MD Unavailable [phone] Encounter Details Date Type Department Care Team (Late st Contact Info) Description 03/18/2023 Telephone [facility] MEDICINE 230 [place], [place] [phone] Ligia Becerra MD 230 [place] [address] Social History Tobacco Use Types Packs/Day Years [...] from pt states he spoke with a compliance project manager and was given the number [phone]. Shoddy Mill Worker did not seeany documentation. Please contact pt at [phone] documented in this encounter Plan of Treatment Not on file documented as of this encounter Visit Diagnoses Not on filedocumented in this encounter Care Teams Linen Supervisor Relationship Specialty Start Date End Date Ligia Becerra MD 230 [place] [address] PCP - General Family Medicine 07/22/22 Jair Pro MD [address] [place] [address] Urology 07/24/24 Tim Herrera [address] [place] [address] Neurosurgery 07/24/24 Trung Slade MD [address] 3rd [place] [address] Gastroenterology 10/19/24 documented as of this encounter
--- OUTSIDE RECORDS SUMMARY | 2024-12-03 18:43 | XMS_ITS | Encounter Summary ---
Author Organization [employer] Address 75 [facility] 7t [place] [address] Care Team Providers Care Assembly Adjuster Name Role Phone Ligia Becerra MD Primary Care Provider [phone]- [phone] Jair Pro MD Unavailable Tim Herrera Unavailable Trung Slade MD Unavailable [phone] Reason for Visit * Reason Onset Date Comments Nurse Triage 10/08/2023 Encounter Details Date Type Department Care Team (Late st Contact Info) Description 10/08/2023 Telephone [facility] MEDICINE 230 [place], [place] [phone] Ligia Becerra MD 230 [place], [place] [phone] Nurse Triage Social History Tobacco Use Types [...] PM EST Call to Ashley Angeles via WIB video driller's assistant. Pt reports having back pain that [...] as of this encounter Care Teams Assembly Adjuster Relationship Specialty Start Date End Date Ligia Becerra MD 230 [place] [address] PCP - General Family Medicine 07/22/22 Jair Pro MD [address] [place] [address] Urology 07/24/24 Tim Herrera [address] [place] [address] Neurosurgery 07/24/24 Trung Slade MD [address] 3rd [place] [address] Gastroenterology 10/19/24 documented as of this encounter
--- OUTSIDE RECORDS SUMMARY | 2024-12-03 18:43 | XMS_ITS | Encounter Summary ---
Author Organization [employer] Address 75 [facility] 7 [place] [address] Care Team Providers Care Clay Pigeon Loader Name Role Phone Ligia Becerra MD Primary Care Provider [phone]- [phone] Jair Pro MD Unavailable [phone] Tim Herrera Unavailable [phone] Trung Slade MD Unavailable [phone] Reason for Visit * Reason Onset Date Comments ER Follow-up 10/14/2023 Encounter Details Date Type Department Care Team (Late st Contact Info) Description 10/14/2023 Telephone [facility] MEDICINE 230 [place], [place] [phone] Ligia Becerra MD 230 [place] [address] ER Follow-up Social History Tobacco Use Types [...] from Pt calling to inform went to [facility] ER yesterday 10/13/23 . Informs was prescribed medication but was sent to the incorrect pharmacy and pt does not have transportation. Pt does not know name ofmed . Please call pt to clarify . Note below taken from [facility] discharge summery medication in question is oxycodone, will send message to PCP to advise. Reevaluation #3: 10/14/23 14:55 received phone call from patient via hydraulic tester. Patient stating that oxycodone prescription was sent to incorrect pharmacy. Upon review, appears prescription was rejected. Initial order canceled. New prescription for 4 tabs of oxycodone 5 mg sent to [facility] in [place]. * Telephone Encounter - Yareli Billingsley - 10/14/2023 12:41 PM EST TC from Pt calling to inform went to [facility] ER yesterday 10/13/23 . Informs was prescribed [...] documented as of this encounter Care Teams Clay Pigeon Loader Relationship Specialty Start Date End Date Ligia Becerra MD 230 [place] [address] PCP - General Family Medicine 07/22/22 Jair Pro MD [address] [place] [address] Urology 07/24/24 Tim Herrera [address] [place] [address] Neurosurgery 07/24/24 Trung Slade MD [address] 3rd [place] [address] Gastroenterology 10/19/24 documented as of this encounter
--- OUTSIDE RECORDS SUMMARY | 2024-12-03 18:44 | XMS_ITS | Encounter Summary ---
Author Organization [employer] Address 75 [facility] 7t [place] [address] Care Team Providers Care Mica Miner Name Role Phone Ligia Becerra MD Primary Care Provider [phone]- [phone] Jair Pro MD Unavailable [phone] Tim Herrera Unavailable [phone] Trung Slade MD Unavailable [phone] Reason for Visit * Reason Onset Date Comments Durable Medical Equipment 06/02/2024 Encounter Details Date Type Department Care Team (Late st Contact Info) Description 06/02/2024 Telephone [facility] MEDICINE 230 [place] [address] Ligia Becerra MD 230 [place] [address] Durable Medical Equipment Social History Tobacco Use [...] any questions you can contact pt at [phone]. documented in this encounter Plan of Treatment Not on file documented as of this encounter Visit Diagnoses Not on filedocumented in this encounter Additional Health Concerns Assessment Noted Time PHQ-9 Depression Total Score: 3 03/18/20 24 11:59 AM EDT documented as of this encounter Care Teams Mica Miner Relationship Specialty Start Date End Date Ligia Becerra MD [address] [place] [address] PCP - General Family Medicine 07/22/22 Jair Pro MD [address] [place] [address] Urology 07/24/24 Tim Herrera [address] [place] [address] Neurosurgery 07/24/24 Trung Slade MD [address]rd [place] [address] Gastroenterology 10/19/24 documented as of this encounter
--- OUTSIDE RECORDS SUMMARY | 2024-12-03 18:44 | XMS_ITS | Encounter Summary ---
Author Organization [employer] Address 75 [facility] 7t [place] [address] Care Team Providers Care Adhesive Bonding Machine Operator Name Role Phone Ligia Becerra MD Primary Care Provider [phone]- [phone] Jair Pro MD Unavailable Tim Herrera Unavailable [phone] Trung Slade MD Unavailable [phone] Reason for Visit * Reason Onset Date Comments PT1 10/20/2024 Encounter Details Date Type Department Care Team (Late st Contact Info) Description 10/20/2024 Telephone [facility] MEDICINE 230 [place], [place] [phone] Ligia Becerra MD 230 [place] [address] PT1 Social History Tobacco Use Types Packs/Day [...] Y/N: Yes Provider name or facility name: [address] [place] [address] Escort needed: Y/N: Yes Do you have [...] documented as of this encounter Care Teams Adhesive Bonding Machine Operator Relationship Specialty Start Date End Date Ligia Becerra MD 230 [place] [address] PCP - General Family Medicine 07/22/22 Jair Pro MD [address] [place] [address] Urology 07/24/24 Tim Herrera [address] [place] [address] Neurosurgery 07/24/24 Trung Slade MD [address] 3rd [place] [address] Gastroenterology 10/19/24 documented as of this encounter
--- OUTSIDE RECORDS SUMMARY | 2024-12-03 18:44 | XMS_ITS | Encounter Summary ---
Author Organization [employer] Address 75 [facility] 7t [place] [address] Care Team Providers Care Sales Administration Manager Name Role Phone Ligia Becerra MD Primary Care Provider [phone]- [phone] Jair Pro MD Unavailable [phone] Tim Herrera Unavailable [phone] Trung Slade MD Unavailable [phone] Reason for Referral * Consultation (Routine) - Closed Specialty Diagnoses / Procedures Referred By Contac t Referred To Contact Physical Therapy Diagnoses Chronic bilateral thoracic back pain Bilateral deafness Ligia Becerra MD 230 [place] [address] Phone: tel: fax: [facility], Audiology [address] [place] Phone: tel: fax: Referral ID Status Reason Start Date Expiration Date V isits Requested Visits Authorized [id number] Closed Specialty Services Required 06/22/2024 06/22/2025 1 1 Encounter Details Date Type Department Care Team (Late st Contact Info) Description 06/17/2024 Orders Only [facility] 230 [place] [address] Ligia Becerra MD 230 [place], [place] [phone] Chronic bilateral thoracic back pain (Primary Dx); [...] documented as of this encounter Care Teams Sales Administration Manager Relationship Specialty Start Date End Date Ligia Becerra MD 230 [place] [address] PCP - General Family Medicine 07/22/22 Jair Pro MD [address] [place] [address] Urology 07/24/24 Tim Herrera [address] [place] [address] Neurosurgery 07/24/24 Trung Slade MD [address] 3rd [place] [address] Gastroenterology 10/19/24 documented as of this encounter
--- OUTSIDE RECORDS SUMMARY | 2024-12-03 18:44 | XMS_ITS | Encounter Summary ---
Author Organization [employer] Address 75 [facility] 7t [place] [address] Care Team Providers Care Custom Leather Products Maker Name Role Phone Ligia Becerra MD Primary Care Provider [phone]- [phone] Jair Pro MD Unavailable Tim Herrera Unavailable [phone] Trung Slade MD Unavailable [phone] Encounter Details Date Type Department Care Team (Late st Contact Info) Description 02/04/2023 Abstract [facility] MEDICINE 230 [place], [place] [phone] Ligia Becerra MD 230 [place], [place] [phone] Social History Tobacco Use Types Packs/Day Years [...] on filedocumented in this encounter Care Teams Custom Leather Products Maker Relationship Specialty Start Date End Date Ligia Becerra MD 230 [place] [address] PCP - General Family Medicine 07/22/22 Jair Pro MD [address] [place] [address] Urology 07/24/24 Tim Herrera [address] [place] [address] Neurosurgery 07/24/24 Trung Slade MD [address] 3rd [place] [address] Gastroenterology 10/19/24 documented as of this encounter
--- OUTSIDE RECORDS SUMMARY | 2024-12-03 18:45 | XMS_ITS | Encounter Summary ---
Author Organization [employer] Address 75 [facility] 7 [place] [address] Care Team Providers Care Leadership Coach Name Role Phone Ligia Becerra MD Primary Care Provider [phone] Jair Pro MD Unavailable [phone] Tim Herrera Unavailable [phone] Trung Slade MD Unavailable [phone] Encounter Details Date Type Department Care Team (Late st Contact Info) Description 08/13/2022 Orders Only [facility] MEDICINE 230 [place] [address] Ligia Becerra MD 230 [place] [address] Social History Tobacco Use Types Packs/Day Years [...] on filedocumented in this encounter Care Teams Leadership Coach Relationship Specialty Start Date End Date Ligia Becerra MD 230 [place] [address] PCP - General Family Medicine 07/22/22 Jair Pro MD [address] [place] [address] Urology 07/24/24 Tim Herrera [address] [place] [address] Neurosurgery 07/24/24 Trung Slade MD [address] 3rd [place] [address] Gastroenterology 10/19/24 documented as of this encounter
--- OUTSIDE RECORDS SUMMARY | 2024-12-03 18:45 | XMS_ITS | Encounter Summary ---
Author Organization [employer] Address [address] [facility] 7t [place] [address] Care Team Providers Care Credit Clerk Name Role Phone Ligia Becerra MD Primary Care Provider [phone] Jair Pro MD Unavailable [phone] Tim Herrera Unavailable [phone] Trung Slade MD Unavailable [phone] Reason for Visit * Reason Onset Date Comments Nurse Triage 09/15/2023 Encounter Details Date Type Department Care Team (Late st Contact Info) Description 09/15/[address] [facility] MEDICINE [address] [place], [place] [phone] Ligia Becerra MD [address] [place], [place] [phone] Nurse Triage Social History Tobacco Use Types [...] accepted this outcome Please contact pt at [phone] documented in this encounter Plan of Treatment Not on file documented as of this encounter Visit Diagnoses Not on filedocumented in this encounter Additional Health Concerns Assessment Noted Time PHQ-9 Depression Total Score: 18 023 3:56 PM EDT documented as of this encounter Care Teams Credit Clerk Relationship Specialty Start Date End Date Ligia Becerra MD [address] [place] [address] PCP - General Family Medicine 07/22/22 Jair Pro MD [address] [place] [address] Urology 07/24/24 Tim Herrera [address] [place] [address] Neurosurgery 07/24/24 Trung Slade MD [address]rd [place] [address] Gastroenterology 10/19/24 documented as of this encounter
--- OUTSIDE RECORDS SUMMARY | 2024-12-03 18:45 | XMS_ITS | Encounter Summary ---
Author Organization [employer] Address [address] [facility] 7 [place] [address] Care Team Providers Care Insole Presser Name Role Phone Ligia Becerra MD Primary Care Provider [phone] Jair Pro MD Unavailable Tim Herrera Unavailable [phone] Trung Slade MD Unavailable [phone] Reason for Visit * Reason Onset Date Comments Appointment Request 11/30/2024 Encounter Details Date Type Department Care Team (Late st Contact Info) Description 11/30/2024 Telephone [facility] MEDICINE [address] [place], [place] [phone] Ligia Becerra MD [address] [place], [place] [phone] Appointment Request Social History Tobacco Use Types Packs/Day Years [...] encounter Miscellaneous Notes * Telephone Encounter - Barbara White RN - 12/03/2024 10:58 AM EDT TC placed to pt with drywall stripper helper to inform per Dr. Herrera office that the ordered thoracic and cervical MRI's need to be performed and reviewed before any procedure can be scheduled. The pt wasgiven the number for [facility] Centralized Scheduling to call and set up a date and time to do the MRI. Pt will call back the office if there are any further questions or concerns. * Telephone Encounter - Shannon Angeles - 12/03/2024 10:25 AM EDT Tc from pt returning phone call. * Telephone Encounter - Barbara White RN - 12/02/2024 9:50 AM EDT Second phone call placed to the pt and a VM was left to call back the office * Telephone Encounter - Barbara White RN - 12/01/2024 10:16 AM EDT TC placed to Dr. Hall's office at [facility] to inquire on the status of pt pending back/spinal surgery. Per the electric shovel operator, the pt is not currently scheduled to have a procedure donein the near distant future. The pt had an office visit with Dr. Ford on Friday11/26/2024 in which a cervical and thoracic MRI was ordered. Dr. Hall'daniel requested that this imaging be done and reviewed before the pt can be scheduled for any procedure. TC placed to the pt with an drywall stripper helper who left a VM for the pt to return the call to the clinic * Telephone Encounter - Shannon Angeles - 12/01/2024 9:01 AM EDT Tc from pt regarding prior message, requesting clarification. [phone] * Telephone Encounter - Karina Ojeda - 11/30/2024 3:14 PM EDT Patient walked into [facility], Patient requests for RN to contact Dr. Hall's office to get update for PA (spinal surgery- PA has been submitted 3 times and has been denied 2 times). Patient was advised RN will call to get update but Patient was advised the PA is going through Dr. Hall's office. They are filling out the paper work and sending it to [facility]. They are the ones that will have to contact Patient and advised if PA was denied or approved and why. * Telephone Encounter - Barbara White RN - 11/30/2024 11:07 AM EDT TC placed to pt with an drywall stripper helper to inquire about the information that the pt received regarding a denial from her insurance for a pending surgery on the back. The pt did confirm that this hasbeen ongoing for several years now and that Dr. Tim Hall's at [facility] has been trying to schedule this. The pt did have an MRI ordered very recently by this office and was advise d to contact their office regarding the results. Pt advised to contact Dr. Hall's office to inform of the denial for the procedure and request a new prior authorization be submitted. Pt agreeable to this advice and will call back the office if any information is needed by PCP to help the approval process. * Telephone Encounter - Lia Huang - 11/30/2024 9:44 AM EDT Tc from pt requesting a call back regarding some procedure that was denied. Contact pt at [phone] documented in this encounter Plan of Treatment Not on file documented as of this encounter Visit Diagnoses Not on filedocumented in this encounter Additional Health Concerns Assessment Noted Time PHQ-9 Depression Total Score: 3 03/18/20 24 11:59 AM EDT documented as of this encounter Care Teams Insole Presser Relationship Specialty Start Date End Date Ligia Becerra MD [address] [place] [address] PCP - General Family Medicine 07/22/22 Jair Pro MD [address] [place] [address] Urology 07/24/24 Tim Herrera [address] [place] [address] Neurosurgery 07/24/24 Trung Slade MD [address] 3rd [place] [address] Gastroenterology 10/19/24 documented as of this encounter
--- OUTSIDE RECORDS SUMMARY | 2024-12-03 18:45 | XMS_ITS | Clinical Summary ---
Author Organization [facility] it Address [address] [place] [address] Care Team Providers Care Fiscal Specialist Name Role Phone Unavailable Primary Care Provider [...]
--- OUTSIDE RECORDS SUMMARY | 2024-12-03 18:45 | XMS_ITS | Encounter Summary ---
Author Organization [employer] Address [address] [facility] 7t [place] [address] Care Team Providers Care Smoked Meat Preparer Name Role Phone Ligia Becerra MD Primary Care Provider [phone] Jair Pro MD Unavailable [phone] Tim Herrera Unavailable Trung Slade MD Unavailable [phone] Reason for Visit * Reason Onset Date Comments Call back request 08/14/2023 Encounter Details Date Type Department Care Team (Late st Contact Info) Description 08/14/2023 Telephone [facility] MEDICINE [address] [place], [place] [phone] Ligia Becerra MD [address] [place] [address] Call back request Social History Tobacco Use [...] 3:00 PM EST Tc from pt via [employer] interpretor #[id number] requesting call back wanting to speak with provider. Pt didn't want to information regarding the call, she stated pcp knows what's going on. Please contact pt at [phone]. documented in this encounter Plan of Treatment Not on file documented as of this encounter Visit Diagnoses Not on filedocumented in this encounter Additional Health Concerns Assessment Noted Time PHQ-9 Depression Total Score: 18 023 3:56 PM EDT documented as of this encounter Care Teams Smoked Meat Preparer Relationship Specialty Start Date End Date Ligia Becerra MD [address] [place] [address] PCP - General Family Medicine 07/22/22 Jair Pro MD [address] [place] [address] Urology 07/24/24 Tim Herrera [address] [place] [address] Neurosurgery 07/24/24 Trung Slade MD [address] [place] [address] Gastroenterology 10/19/24 documented as of this encounter
--- OUTSIDE RECORDS SUMMARY | 2024-12-03 18:45 | XMS_ITS | Encounter Summary ---
Author Organization [employer] Address [address] [facility] 7t [place] [address] Care Team Providers Care Elementary Reading Tutor Name Role Phone Ligia Becerra MD Primary Care Provider [phone] Jair Pro MD Unavailable Tim Herrera Unavailable Trung Slade MD Unavailable [phone] Encounter Details Date Type Department Care Team (Late st Contact Info) Description 11/01/2022 Orders Only [facility] MEDICINE [address] [place], [place] [phone] Ligia Becerra MD [address] [place] [address] Bilateral deafness (Primary Dx) Social History Tobacco [...] loss documented in this encounter Care Teams Elementary Reading Tutor Relationship Specialty Start Date End Date Ligia Becerra MD [address] [place] [address] PCP - General Family Medicine 07/22/22 Jair Pro MD [address] [place] [address] Urology 07/24/24 Tim Herrera [address] [place] [address] Neurosurgery 07/24/24 Trung Slade MD [address] 3rd [place] [address] Gastroenterology 10/19/24 documented as of this encounter
--- OUTSIDE RECORDS SUMMARY | 2024-12-03 18:45 | XMS_ITS | Clinical Summary ---
Author Organization [employer] Address [address] [place] [address] 7 [place] [address] Care Team Providers Care Leather Finisher Name Role Phone Ligia Becerra MD Primary Care Provider [phone] Jair Pro MD Unavailable [phone] Tim Nolen Unavailable [phone] Trung Slade MD Unavailable [phone] Allergies No known active allergies Medications [...] migh t be different from the original. [facility] Respiratory Therapy Technician: Yajaira, member services number [phone], provider services line, , option 4 Erp Implementation Consultant [facility] Problem Noted Date Diagnosed Date Vaginal [...] Patient will benefit from follow through with [facility] services and recommendations as well as continued calls to the [facility]. At this time Jacob Angeles meets criteria for Visit Diagnoses: Problem List Items Addressed This Visit Other Adjustment disorder with mixed anxiety and depressed mood Personality disorder (CMS/HCC) Patient ready to address current needs Yes Strengths-Ashley is able to advocate for her wants and needs. She is in the contemplation stage of change. PLAN: 1. Follow up with [facility]: Recommended for follow-up: As needed 2. Patient goal is to follow through with N services and recommendations 3. Behavioral Recommendations a. OP therapy with [facility] b. Calling the [facility] daily Assessment & Plan (04/15/2023 1:06 PM [...] Patient will benefit from crisis evaluation with [facility] and group home placment. ?? At this time Jacob Angeles meets criteria for Visit Diagnoses: Problem List Items Addressed This Visit ? Other ?? Adjustment disorder with mixed anxiety and depressed mood ?? Patient ready to address current needs Yes ?? Strengths- Ashley is able to advocate for her wants and needs. She is in the contemplation stage of change. ?? PLAN: 1. Follow up with [facility]: Recommended for follow-up: As needed 2. Patient goal is to engage in crisis evaluation, OP therapy, psychiatry 3. Behavioral Recommendations a. [facility] b. Call [facility] daily at 9:00 AM for intake Assessment [...] of change. PLAN: 1. Follow up with [facility]: Recommended for follow-up: As needed 2. Patient goal is to engage in crisis evaluation, OP therapy, psychiatry 3. Behavioral Recommendations aRemberto [facility] evelyn Call Latosha Ramirez at 9:00 AM [...] due after 03/18/25 -eye care facilitated by [facility] -dental home is [facility] -Healthcare proxy paperwork given 08/22/23, filed 03/18/24 Assessment & Plan (03/18/2024 11:39 AM EDT): -next PE due after 03/18/25 -eye care facilitated by [facility] -dental home is [facility] -Healthcare proxy paperwork given 08/22/23, filed [...] GI 09/17/21. I reached out to her knockout man Ana Maria to assist her in following [...] 3:40 PM EST): I will be calling egg caser to discuss Pts option. Pt is interested [...] when offering services. -Team meeting pt and sales development representative from safety, behavior health, case managment, viability and myself on 05/23/2023 done to reinforce which services to use when seeking assistance and setting up behavior expatiation when in the clinic. -[facility] ([facility]) ORCHARD PRUNER [phone] Assessment & Plan (11/19/2023 4:15 PM EDT): [...] when offering services. -Team meeting pt and sales development representative from safety, behavior health, case managment, viability and myself on 05/23/2023 done to reinforce which services to use when seeking assistance and setting up behavior expatiation when in the clinic. -[facility] ([facility]) ORCHARD PRUNER [phone] Assessment & Plan (08/22/2023 9:06 AM EST): [...] when offering services. -Team meeting pt and sales development representative from safety, behavior health, case managment, viability and myself on 05/23/2023 done to reinforce which services to use when seeking assistance and setting up behavior expatiation when in the clinic. -[facility] ([facility]) ORCHARD PRUNER [phone] Assessment & Plan (08/13/2023 9:50 AM EST): [...] when offering services. -Team meeting pt and sales development representative from safety, behavior health, case managment, viability and myself on 05/23/2023 done to reinforce which services to use when seeking assistance and setting up behavior expatiation when in the clinic. -[facility] ([facility]) ORCHARD PRUNER [phone] Assessment & Plan (05/23/2023 1:14 PM EDT): [...] when offering services. -Team meeting pt and sales development representative from safety, behavior health, case managment, viability and myself on 05/23/2023 done to reinforce which services to use when seeking assistance and setting up behavior expatiation when in the clinic. -[facility] ([facility]) ORCHARD PRUNER [phone] Assessment & Plan (02/05/2023 11:15 AM EDT): [...] offering services. -[facility] with Jose Ramos Jr. [employer]CHARD PRUNER , text . Assessment & Plan (10/28/2022 [...] prescribed by [facility] but pt did not pickle solution maker. -She returned to pain management 06/02/2023 and was referred to neurosurgery -seen by Dr. Tim Nolen MD, PhD , Spine Fellowship Trained Neurosurgeon, Director, [facility] 06/25/2023 -Pt offered a multilevel decompression [...] prescribed by [facility] but pt did not pickle solution maker. -She returned to pain management 06/02/2023 and was referred to neurosurgery -seen by Dr. Tim Nolen MD, PhD , Spine Fellowship Trained Neurosurgeon, Director, [facility] 06/25/2023 -Pt offered a multilevel decompression [...] prescribed by [facility] but pt did not pickle solution maker. -She returned to pain management 06/02/2023 and was referred to neurosurgery -seen by Dr. Tim Nolen MD, PhD , Spine Fellowship Trained Neurosurgeon, Director, [facility] -Ptoffered a multilevel decompression of the [...] prescribed by [facility] but pt did not pickle solution maker. -She returned to pain management 06/02/2023 and was referred to neurosurgery -seen by Dr. Tim Nolen MD, PhD , Spine Fellowship Trained Neurosurgeon, Director, [facility] -Ptoffered a multilevel decompression of the [...] prescribed by [facility] but pt did not pickle solution maker. -She returned to pain management 06/02/2023 and was referred to neurosurgery -seen by Dr. Tim Nolen MD, PhD , Spine Fellowship Trained Neurosurgeon, Director, [facility] -Ptoffered a multilevel decompression of the [...] prescribed by [facility] but pt did not pickle solution maker. -She returned to pain management 06/02/2023 and was referred to neurosurgery -seen by Dr. Tim Nolen MD, PhD , Spine Fellowship Trained Neurosurgeon, Director, [facility] -Ptoffered a multilevel decompression of the [...] prescribed by [facility] but pt did not pickle solution maker. -She returned to pain management 06/02/2023 and was referred to neurosurgery -seen by Dr. Tim Nolen MD, PhD , Spine Fellowship Trained Neurosurgeon, Director, [facility] -Ptoffered a multilevel decompression of the [...] prescribed by [facility] but pt did not pickle solution maker. -She returned to pain management 06/02/2023 and was referred to neurosurgery -seen by Dr. Tim Nolen MD, PhD , Spine Fellowship Trained Neurosurgeon, Director, [facility] -Ptoffered a multilevel decompression of the [...] proscribed cyclobenzaprine. I reached out to her knockout man Ana Maria to assist her in following [...] 12/30/2014 Overview (08/13/2023): Audiology appointment 03/02/2023. -Viability sales development representative [facility] ([facility]) ORCHARD PRUNER [phone] Assessment & Plan (05/19/2024 3:18 PM EDT): Audiology appointment 03/02/2023. -Viability sales development representative [facility] ([facility]) ORCHARD PRUNER [phone] Assessment & Plan (03/18/2024 11:35 AM EDT): Audiology appointment 03/02/2023. -Viability sales development representative [facility] ([facility]) ORCHARD PRUNER [phone] Assessment & Plan (11/19/2023 4:14 PM EDT): Audiology appointment 03/02/2023. -Viability sales development representative N[facility] ([facility]) ORCHARD PRUNER [phone] Assessment & Plan (08/22/2023 9:06 AM EST): Audiology appointment 03/02/2023. -Viability sales development representative [facility] ([facility]) ORCHARD PRUNER [phone] Assessment & Plan (08/13/2023 9:48 AM EST): Audiology appointment 03/02/2023. -[facility]ability sales development representative [facility] ([facility]) ORCHARD PRUNER [phone] Assessment & Plan (05/23/2023 1:16 PM EDT): Audiology appointment 03/02/2023. -Viability sales development representative [facility] ([facility]) ORCHARD PRUNER [phone] Assessment & Plan (02/05/2023 11:14 AM EDT): Audiology appointment 03/02/2023. Viability with Jose Ramos Jr. ORCHARD PRUNER , text . Assessment & Plan (12/12/2022 [...] for appointment. I have asked her Viability knockout man to assist her. -CT 12/2021 Gallbladder surgically [...] for appointment. I have asked her Viability knockout man to assist her. -CT 12/2021 Gallbladder surgically [...] for appointment. I have asked her Viability knockout man to assist her. -CT 12/2021 Gallbladder surgically [...] for appointment. I have asked her Viability knockout man to assist her. -CT 12/2021 Gallbladder surgically [...] for appointment. I have asked her Viability knockout man to assist her. -CT 12/2021 Gallbladder surgically [...] for appointment. I have asked her Viability knockout man to assist her. -CT 12/2021 Gallbladder surgically [...] for appointment. I have asked her Viability knockout man to assist her. -CT 12/2021 Gallbladder surgically [...] for appointment. I have asked her Viability knockout man to assist her. -CT 12/2021 COMPARISON: Multiple [...] and financial insecurity. Patient will benefit from [facility] referral and OP therapy. At this time Jacob Angeles meets criteria for Visit Diagnoses: Problem List Items Addressed This Visit Other Anxiety Personality disorder (CMS/HCC) Patient ready to address current needs Yes Strengths-Ashley is a strong advocate for herself and in the contemplation stage of change. PLAN: 1. Follow up with [facility]: Recommended for follow-up: 03/20/23 with Larissa Robertson [...] Encounters Date Type Department Care Team Description 11/30/2024 Telephone [facility] MEDICINE [address] [place] [address] Ligia Becerra MD Appointment Request 11/23/2024 Refill [facility] [address] [place] [address] Ligia Becerra MD Insomnia, unspecified type 11/23/2024 Telephone [facility] [address] [place] [address] Ligia Becerra MD Nurse Triage 11/22/2024 2:20 PM EDT Office Visit [facility] [address] [address] Mary Sage NP Vaginal discharge (Primary Dx); Dysuria; Lesion of skin of scalp; Intertrigo of genital labia 11/09/[address] [address] Ligia Becerra MD Results 10/20/2024 Patient Outreach [address] [address] Ligia Becerra MD Care Coordination ([facility] outreach for [facility] transportation needs-referral completed /) 10/20/[address] [address] Ligia Becerra MD PT1 10/19/2024 3:20 PM EDT [facility] [address] [address] Ligia Becerra MD Chronic bilateral thoracic back pain (Primary Dx); Preop examination; Lower abdominal pain; Benign prostatic hyperplasia with urinary frequency; Insomnia, unspecified type; Colon cancer screening 10/19/[address] [address] Ligia Becerra MD 10/18/2024 [facility] [address] [address] Joselo Esparza MD 10/18/[address] [address] Ligia Becerra MD Nurse Triage 10/06/2024 Telephone [facility] ADULT DENTAL [address] [place] [address] Mayte Duncan 09/23/2024 4:00 PM EST [facility] [address] [address] Rectal bleeding (Primary Dx); Abdominal bloating; Chronic bilateral low back pain with bilateral sciatica 09/23/[address] [address] Ligia Becerra MD Nurse Triage 09/20/2024 Telephone [facility] [address] [place] [address] Ligia Becerra MD Medication Question 09/17/2024 Telephone [facility] [address] [place] [address] Concepción Perera MA chartprep from Last 3 [...] Procedure Name Priority Date/Time Associated Diagnosis Comments PSA, TOTAL Routine 11/26/2024 4:58 PM EDT Benign prostatic hyperplasia with urinary frequency POCT URINALYSIS DIPSTICK Routine 11/22/2024 2:27 PM [...] Recently Relevant to Health Maintenance Results * PSA,Total (11/26/2024 4:58 PM EDT) Prostate Specific Antigen 2.68 <0.05 - 4.0 ng/mL [facility] Comment:PSA methodology: Sharon Torres i ChemiluminescentMicroparticle Immunoassay (CMIA) Blood Venous blood specimen / Unknown 11/26/2024 4:58 PM EDT 11/26/2024 4:58 PM EDT us Ligia Becerra MD LAB BLOOD ORDERABLES Final Result [facility] [address] [place] [phone] * POCT urinalysis dipstick manually resulted (11/22/2024 2:27 PM EDT) Only the most recent of2 resultswithin the time period is included. Pathologist [facility] Color, UA Yellow Clarity, UA Clear Glucose, UA Negative Bilirubin, UA Negative Ketones, UA Negative Spec Grav, UA 1.025 Blood, UA Negative Negative, None Detected pH, UA 6.0 Protein, UA Negative Urobilinogen, UA 0.2 Leukocytes, UA Negative Negative, Rare, Trace Nitrite, UA Negative Negative, None Detected Urine 11/22/2024 2:27 PM EDT Result [facility] Mary Sage NP POINT OF CARE TEST ENTER/EDIT OR DERABLES Final Result * (ABNORMAL) Colonoscopy (07/02/2024) [facility] Colonoscopy Abnormal( A) Normal Comment:tubular adenoma with Dr. Slade Historical Provider HEALTH MAINTENANCE Final Result * Hepatitis C Antibody with Reflex to HCV, RNA, Quantitative, Real-Time PCR (07/29/2022 11:16 AM EST) [facility] Hepatitis C Antibody NON-REACT MOE NON-REACT MOE [email or web address] Index 0.06 <1.00 [email or web address] Comment: HCV antibody was non-reactive. There is no laboratory evidence of HCV infection. In most cases, no further action is required. However, if recent HCV exposure is suspected, a test for HCV RNA (test code 81811) is suggested. For additional information please refer to http://education.[employer]Keelvar/faq/OZY05e0 (This link is being provided for informational/ educational purposes only.) Blood Venous blood specimen / Unknown 07/29/2022 11:16 AM EST 07/29/2022 11:17 AM EST Narrative [facility] - 08/02/2022 10:49 PM EST FASTING:YES FASTING: YES Ligia Becerra MD LAB BLOOD ORDERABLES Final Result Performing Organization Address City/[facility]/ZIP Co de Phone Number [facility] [address], [place] [address] [employer] [place] [facility] [address] [facility], ([address]) [place] [address] * (ABNORMAL) Lipid Panel, Standard (07/29/2022 11:16 AM EST) Cholesterol, Total 130 <200 mg/dL [email or web address] HDL Cholesterol 29(L) > OR = 40 mg/dL [email or web address] Triglycerides 80 <150 mg/dL [email or web address] LDL Cholesterol 84 mg/dL (calc) [facility] Comment: Reference range: <100 Desirable range <100 mg/dL for primary prevention; ?? <70 mg/dL for patients with CHD or diabetic patients with > or = 2 CHD risk factors. LDL-C is now calculated using the Aria calculation, which is a validated novel method providing better accuracy than the Friedewald equation in the estimation of LDL-C. Barrington SCHUMACHER et al. EITAN. 2013;310(19): 8456-2965 (http://education.VoiceObjects/faq/YJZ615) Chol/HDLC Ratio 4.5 <5.0 (calc) [facility] Non-HDL Cholesterol 101 <130 mg/dL (calc) [employer] Comment: For patients with diabetes plus 1 major ASCVD risk factor, treating to a non-HDL-C goal of <100 mg/dL (LDL-C of <70 mg/dL) is considered a therapeutic option. Blood Venous blood specimen / Unknown 07/29/2022 11:16 AM EST 07/29/2022 11:17 AM EST Narrative [facility] - 08/02/2022 10:49 PM EST FASTING:YES FASTING: YES Ligia Becerra MD LAB BLOOD ORDERABLES Final Result Performing Organization Address City/[facility]/ZIP Co de Phone Number [facility] Quinn [address], [place] [address] [facility] [place] [facility] [address] [facility], ([address]) [place] [address] from Last 3 Months or Most Recently Relevant to Health Maintenance Insurance [facility] INTERMEDIATE OPTIONS (HMO D-SNP) DENTAL [facility] Advance Directives Documents on File Type Date Recorded Patient Manager Bench Expl anation Advance Directives and Living Will 03/23/2024 10:24 AM Health Care Proxy Care Teams Leather Finisher Relationship Specialty Start Date End Date Ligia Becerra MD [address] [place] [address] PCP - General Family Medicine 07/22/22 Jair Pro MD [address] [place] [address] Urology 07/24/24 Tim Nolen [address] [place] [address] Neurosurgery 07/24/24 Trung Slade MD [address] 3rd [place] [address] Gastroenterology 10/19/24
--- OUTSIDE RECORDS SUMMARY | 2024-12-03 18:45 | XMS_ITS | Encounter Summary ---
Author Organization [employer] Address [address] [facility] 7t [place] [address] Care Team Providers Care Pattern Chain Builder Name Role Phone Ligia Becerra MD Primary Care Provider [phone] Jair Pro MD Unavailable Tim Herrera Unavailable Trung Slade MD Unavailable [phone] Reason for Visit * Reason Onset Date Comments Created in error 04/09/2024 Encounter Details Date Type Department Care Team (Late st Contact Info) Description 04/09/2024 Telephone [facility] [address] [place], [place] [phone] Ligia Becerra MD [address] [place] [address] Created in error Social History Tobacco Use [...] the past 12 months, has t he [employer], gas, oil or water company threatened to [...] documented as of this encounter Care Teams Pattern Chain Builder Relationship Specialty Start Date End Date Ligia Becerra MD [address] [place] [address] PCP - General Family Medicine 07/22/22 Jair Pro MD [address] [place] [address] Urology 07/24/24 Tim Herrera [address] [place] [address] Neurosurgery 07/24/24 Trung Slade MD [address] 3rd Floor [place], [place] Gastroenterology 10/19/24 documented as of this encounter
--- OUTSIDE RECORDS SUMMARY | 2024-12-03 18:45 | XMS_ITS | Encounter Summary ---
Author Organization [employer] Address [address] [facility] 7t [place] [address] Care Team Providers Care Sales And Marketing Vice President Name Role Phone Ligia Becerra MD Primary Care Provider [phone] Jair Pro MD Unavailable Tim Herrera Unavailable [phone] Trung Slade MD Unavailable [phone] Reason for Visit * Reason Onset Date Comments Med Refill 07/18/2023 Encounter Details Date Type Department Care Team (Late st Contact Info) Description 07/18/2023 Telephone [facility] MEDICINE [address] [place], [place] [phone] Ligia Becerra MD [address] [place] [address] Med Refill Social History Tobacco Use Types [...] Strength) 500 MG tablet Please sent to [facility] documented in this encounter Plan of Treatment Not on file documented as of this encounter Visit Diagnoses Not on filedocumented in this encounter Additional Health Concerns Assessment Noted Time PHQ-9 Depression Total Score: 18 023 3:56 PM EDT documented as of this encounter Care Teams Sales And Marketing Vice President Relationship Specialty Start Date End Date Ligia Becerra MD [address] [place] [address] PCP - General Family Medicine 07/22/22 Jair Pro MD [address] [place] [address] Urology 07/24/24 Tim Herrera [address] [place] [address] Neurosurgery 07/24/24 Trung Slade MD [address] 3rd [place] [address] Gastroenterology 10/19/24 documented as of this encounter
--- OUTSIDE RECORDS SUMMARY | 2024-12-03 18:45 | XMS_ITS | Encounter Summary ---
Author Organization [employer] Address [address] [facility] 7t [place] [address] Care Team Providers Care Baseball Inspector And Repairer Name Role Phone Ligia Becerra MD Primary Care Provider [phone] Jair Pro MD Unavailable Tim Herrera Unavailable Trung Slade MD Unavailable Reason for Visit * Reason Onset Date Comments Nurse Triage 08/15/2023 Encounter Details Date Type Department Care Team (Late st Contact Info) Description 08/15/2023 Telephone [facility] MEDICINE [address] [place], [place] [phone] Ligia Becerra MD [address] [place], [place] [phone] Nurse Triage Social History Tobacco Use Types [...] documented as of this encounter Care Teams Baseball Inspector And Repairer Relationship Specialty Start Date End Date Ligia Becerra MD [address] [place] [address] PCP - General Family Medicine 07/22/22 Jair Pro MD [address] [place] [address] Urology 07/24/24 Tim Herrera [address] [place] [address] Neurosurgery 07/24/24 Trung Slade MD [address] 3rd Floor [place] [address] Gastroenterology 10/19/24 documented as of this encounter
--- OUTSIDE RECORDS SUMMARY | 2024-12-03 18:45 | XMS_ITS | Continuity of Care Document ---
Author Organization [facility] Address [address] [place] [address] Phone Care Team Providers Care Tire Setter Name Role Phone Unavailable Unavailable Unavailable Advance Directives Directive Yes / No Effective Date File Name No Information Encounters Encounter Description Practice Location Reason(s) For Visit Diagnoses Date Provider Providers Copied on Encounter [facility], [address] [place] [address], [address], [place] tel:[phone] [facility] Behavioral Health NO SHOW (chief complaint) No Information 9 No Information Family History Family Member Type Diagnosis Age At Onset No Information Payers Payer name Insurance type Covered constitution party ID Authoriza tion(s) No Information Social History Type Description Quantity Date Captured Comments Sex Male Smoking Status No Information Sexual Orientation Lesbian, dia or homosexual Gender Identity Hndpai-bj-Dihb (FTM) /Transgender Male/Trans Man Chief Complaint And [...]
--- OUTSIDE RECORDS SUMMARY | 2024-12-03 18:45 | XMS_ITS | Encounter Summary ---
Author Organization [employer] Address [address] [facility] 7t [place] [address] Care Team Providers Care Edi Specialist Name Role Phone Ligia Becerra MD Primary Care Provider [phone] Jair Pro MD Unavailable [phone] Tim Herrera Unavailable Trung Slade MD Unavailable [phone] Reason for Visit * Reason Onset Date Comments Durable Medical Equipment 03/22/2024 Encounter Details Date Type Department Care Team (Late st Contact Info) Description 03/22/2024 Telephone [facility] MEDICINE 230 [place], [place] [phone] Ligia Becerra MD 230 [place] [address] Durable Medical Equipment Social History Tobacco Use [...] the past 12 months, has t he [employer], gas, oil or water company threatened to [...] Sopra Cream Recliner Please contact pt at [phone] documented in this encounter Plan of Treatment Not on file documented as of this encounter Visit Diagnoses Not on filedocumented in this encounter Additional Health Concerns Assessment Noted Time PHQ-9 Depression Total Score: 3 03/18/20 24 11:59 AM EDT documented as of this encounter Care Teams Edi Specialist Relationship Specialty Start Date End Date Ligia Becerra MD 230 [place] [address] PCP - General Family Medicine 07/22/22 Jair Pro MD [address] [place] [address] Urology 07/24/24 Tim Herrera [address] [place] [address] Neurosurgery 07/24/24 Trung Slade MD [address] 3rd [place] [address] Gastroenterology 10/19/24 documented as of this encounter
--- OUTSIDE RECORDS SUMMARY | 2024-12-03 18:45 | XMS_ITS | Encounter Summary ---
Author Organization [employer] Address [address] [facility] [address] [address] Care Team Providers Care Assurance Auditor Name Role Phone Ligia Becerra MD Primary Care Provider [phone]- [phone] Jair Pro MD Unavailable [phone] Tim Herrera Unavailable Trung Slade MD Unavailable [phone] Reason for Visit * Reason Onset Date Comments returnin call back 09/17/2022 Encounter Details Date Type Department Care Team (Late st Contact Info) Description 09/17/2022 Telephone [facility] MEDICINE 230 [place], [place] [phone] Ligia Becerra MD 230 [place] [address] returnin call back Social History Tobacco Use [...] inperson with pt. Please contact pt at [phone] documented in this encounter Plan of Treatment Not on file documented as of this encounter Visit Diagnoses Not on filedocumented in this encounter Care Teams Assurance Auditor Relationship Specialty Start Date End Date Ligia Becerra MD [address] [place] [address] PCP - General Family Medicine 07/22/22 Jair Pro MD [address] [place] [address] Urology 07/24/24 Tim Herrera [address] [place] [address] Neurosurgery 07/24/24 Trung Slade MD [address] 3rd [place] [address] Gastroenterology 10/19/24 documented as of this encounter
--- OUTSIDE RECORDS SUMMARY | 2024-12-03 18:45 | XMS_ITS | Encounter Summary ---
Author Organization [employer] [facility] Address [address] [place] [address] [facility] [place] [address] Care Team Providers Care Clinical Writer Name Role Phone Ligia Becerra MD Primary Care Provider Jair Pro MD Unavailable Tim Herrera Unavailable Trung Slade MD Unavailable [phone] Encounter Details Date Type Department Care Team (Latest Contact Info) Description 06/19/2022 Abstract [facility] Dental, Provider, DDS Social History Tobacco [...] on filedocumented in this encounter Care Teams Clinical Writer Relationship Specialty Start Date End Date Ligia Becerra MD 230 [place] [address] PCP - General Family Medicine 07/22/22 Jair Pro MD [address] [place] [address] Urology 07/24/24 Tim Herrera [address] [place] [address] Neurosurgery 07/24/24 Trung Slade MD [address] 3rd [place] [address] Gastroenterology 10/19/24 documented as of this encounter
--- OUTSIDE RECORDS SUMMARY | 2024-12-03 18:45 | XMS_ITS | Encounter Summary ---
Author Organization [employer] Address 75 [facility] 7t [place] [address] Care Team Providers Care Sanitary Engineering Teacher Name Role Phone Ligia Becerra MD Primary Care Provider [phone]- [phone] Jari Pro MD Unavailable Tim Herrera Unavailable [phone] Trung Slade MD Unavailable [phone] Encounter Details Date Type Department Care Team (Late st Contact Info) Description 07/30/[address] [facility] MEDICINE 230 [place], [place] [phone] Ligia Becerra MD 230 [place] [address] Social History Tobacco Use Types Packs/Day Years [...] documented as of this encounter Care Teams Sanitary Engineering Teacher Relationship Specialty Start Date End Date Ligia Becerra MD [address] [place] [address] PCP - General Family Medicine 07/22/22 Jair Pro MD [address] [place] [address] Urology 07/24/24 Tim Herrera [address] [place] [address] Neurosurgery 07/24/24 Trung Slade MD [address] 3rd [place] [address] Gastroenterology 10/19/24 documented as of this encounter
--- OUTSIDE RECORDS SUMMARY | 2024-12-03 18:45 | XMS_ITS | Encounter Summary ---
Author Organization [employer] Address [address] [facility] [address] [address] Care Team Providers Care Spice Miller Name Role Phone Ligia Becerra MD Primary Care Provider [phone]- [phone] Jair Pro MD Unavailable [phone] Tim Herrera Unavailable Trung Slade MD Unavailable [phone] Reason for Visit * Reason Onset Date Comments Requesting A Phone Call 09/18/2022 Encounter Details Date Type Department Care Team (Late st Contact Info) Description 09/18/2022 Telephone [facility] MEDICINE 230 [place], [place] [phone] Ligia Becerra MD 230 [place] [address] Requesting A Phone Call Social History Tobacco [...] specific in why. Please contact pt at [phone] documented in this encounter Plan of Treatment Not on file documented as of this encounter Visit Diagnoses Not on filedocumented in this encounter Care Teams Spice Miller Relationship Specialty Start Date End Date Ligia Becerra MD 230 [place] [address] PCP - General Family Medicine 07/22/22 Jair Pro MD [address] [place] [address] Urology 07/24/24 Tim Herrera [address] [place] [address] Neurosurgery 07/24/24 Trung Slade MD [address] 3rd [place] [address] Gastroenterology 10/19/24 documented as of this encounter
== END 2024-12-03 18:40 | disposition home or self-care (01) ==
LOC: HO.MRI 18:39
PROVIDERS: Visit Provider Physician Assistant
DX: M47.14 Other spondylosis with myelopathy, thoracic region (principal); R29.898 Other symptoms and signs involving the musculoskeletal system
CPT/HCPCS: 72141; 72146

== ENCOUNTER → 2024-12-03 18:49 | Outpatient (BNV) | payer OTHER, SELFPAY | PROVIDERS: Visit Provider Radiology Diagnostic Radiology | DX: M47.14 Other spondylosis with myelopathy, thoracic region (principal); M47.12 Other spondylosis with myelopathy, cervical region | CPT/HCPCS: 72141; 72146 ==

== ENCOUNTER 2024-12-17 14:15 | Outpatient (AMB) | payer OTHER, SELFPAY ==
--- OUTSIDE RECORDS SUMMARY | 2024-12-17 14:18 | XMS_ITS | Encounter Summary ---
Author Organization [employer] Address 75 [facility] 7t [place] [address] Care Team Providers Care Director Of Guidance In [employer] Name Role Phone Ligia Becerra MD Primary Care Provider [phone] Jair Pro MD Unavailable [phone] Tim Herrera Unavailable [phone] Trung Slade MD Unavailable [phone] Reason for Visit * Reason Onset Date Comments PT1 10/06/2023 Encounter Details Date Type Department Care Team (Late st Contact Info) Description 10/06/2023 Telephone [facility] MEDICINE 230 [place] [address] Ligia Becerra MD 230 [place] [address] PT1 Social History Tobacco Use Types Packs/Day [...] 3 PM Visits: 5 per month Address: [address] [place] [address] Facility: N Wheel Chair: no, walker Web Editor Needed: yes Date: n/a Time: n/a Visits: 5 per month Address: [address] [place] [address] Facility: [facility] Wheel Chair: No, walker Web Editor Needed: yes documented in this encounter Plan of Treatment Upcoming Encounters Date Type Department Care Team ([facility] Contact Info) Description 01/21/2025 11:15 AM EDT Office Visit [facility] OPTOMETRY [address] [place] [address] Britt Zurita, OD [address] [place] [address] documented as of this encounter Visit Diagnoses Not on filedocumented in this encounter Additional Health Concerns Assessment Noted Time PHQ-9 Depression Total Score: 18 023 3:56 PM EDT documented as of this encounter Care Teams Director Of Guidance In [employer] Relationship Specialty Start Date End Date Ligia Becerra MD [address] [place] [address] PCP - General Family Medicine 07/22/22 Jair Pro MD [address] [place] [address] Urology 07/24/24 Tim Herrera [address] [place] [address] Neurosurgery 07/24/24 Trung Slade MD [address] 3rd [place] [address] Gastroenterology 10/19/24 documented as of this encounter
--- OUTSIDE RECORDS SUMMARY | 2024-12-17 14:18 | XMS_ITS | Encounter Summary ---
Author Organization [employer] Address 75 [facility] 7t [place] [address] Care Team Providers Care Dehydrator Tender Name Role Phone Ligia Beecrra MD Primary Care Provider [phone] Jair Pro MD Unavailable Tim Herrera Unavailable Trung Slade MD Unavailable [phone] Encounter Details Date Type Department Care Team (Late st Contact Info) Description 03/18/2023 Telephone [facility] MEDICINE [address] [place] [address] Ligia Becerra MD 230 [place] [address] Social History Tobacco Use Types Packs/Day Years [...] from pt states he spoke with a manager interface and was given the number [phone]. Safety Administrator did not seeany documentation. Please contact pt at [phone] documented in this encounter Plan of Treatment Upcoming Encounters Date Type Department Care Team (Late st Contact Info) Description 01/21/2025 11:15 AM EDT Office Visit [facility] OPTOMETRY 267 [place], [place] [phone] Britt Zurita, OD 267 [place] [address] documented as of this encounter Visit Diagnoses Not on filedocumented in this encounter Care Teams Dehydrator Tender Relationship Specialty Start Date End Date Ligia Becerra MD 230 [place] [address] PCP - General Family Medicine 07/22/22 Jair Pro MD [address] [place] [address] Urology 07/24/24 Tim Herrera [address] [place] [address] Neurosurgery 07/24/24 Trung Slade MD [address] 3rd [place] [address] Gastroenterology 10/19/24 documented as of this encounter
--- OUTSIDE RECORDS SUMMARY | 2024-12-17 14:18 | XMS_ITS | Patient Health Record ---
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) Active confirmed Problem [id number] Bilateral hip joint arthritis (M16.0) Active confirmed Problem 6853915 Spondylosis (M47.9) Active confirmed Problem 00092953 Unsteady gait when walking (R26.81) Active confirmed Plan Of Treatment Pending Test Test Name Order Date URINALYSIS, COMPLETE 10/19/2020 Insurance Providers Payer Name Payer Address Payer Phone Subscriber Number Group Number Insured Name Patient Relationship to Insured Coverage Start Date Coverage End Date [employer] Medicare Plans [address] [place] [address] [id number] Jacob Long Self - patient is the insured [facility] SECONDARY [address] [place], [place] [phone] [id number] Ethan Jacob Self - patient is the insured Dental [employer] Medicare Advantage - [facility] [address] [place] [address] [phone] [id number] Ethan Jacob Self - patient is the insured 2 DENT[employer] Medicaid SECONDARY [address] [place] [address] [phone] [id number] EthanGibsonJacob Self - patient is the insured Medical (General) History Medical History History ICD Code anxiety Surgical History Surgery Date(Month/Year) spinal surgery 2019 Hospitalization History Reason Date(Month/Year) see above
--- OUTSIDE RECORDS SUMMARY | 2024-12-17 14:20 | XMS_ITS | Encounter Summary ---
Author Organization [employer] Address [address] [facility] 7t [place] [address] Care Team Providers Care Highway Patrol Pilot Name Role Phone Ligia Becerra MD Primary Care Provider [phone] Jair Pro MD Unavailable [phone] Tim Herrera Unavailable Trung Slade MD Unavailable [phone] Reason for Visit * Reason Comments Med Refill Encounter Details Date Type Department Care Team (Late st Contact Info) Description 10/18/2024 Refill [facility] 230 [place], [place] [phone] Name, MD Joselo 230 [place] [address] Social History Tobacco Use Types Packs/Day Years [...] Description 01/21/2025 11:15 AM EDT Office Visit [facility] OPTOMETRY 267 [place] [address] TarBritt burks, OD 267 [place] [address] documented as of this encounter Visit Diagnoses Not on filedocumented in this encounter Additional Health Concerns Assessment Noted Time PHQ-9 Depression Total Score: 3 03/18/20 24 11:59 AM EDT documented as of this encounter Care Teams Highway Patrol Pilot Relationship Specialty Start Date End Date Ligia Becerra MD 230 [place] [address] PCP - General Family Medicine 07/22/22 Jair Pro MD [address] [place] [address] Urology 07/24/24 Tim Herrera [address] [place] [address] Neurosurgery 07/24/24 Trung Slade MD [address] 3rd [place] [address] Gastroenterology 10/19/24 documented as of this encounter
--- OUTSIDE RECORDS SUMMARY | 2024-12-17 14:20 | XMS_ITS | Encounter Summary ---
Author Organization [employer] Address [address] [facility] 7t [place] [address] Care Team Providers Care Pot Holder Binder Name Role Phone Ligia Becerra MD Primary Care Provider [phone]- [phone] Jair Pro MD Unavailable [phone] Tim Herrera Unavailable Trung Slade MD Unavailable [phone] Reason for Visit * Reason Onset Date Comments Durable Medical Equipment 06/02/2024 Encounter Details Date Type Department Care Team (Late st Contact Info) Description 06/02/2024 Telephone [facility] MEDICINE 230 [place] [address] Ligia Becerra MD 230 [place] [address] Durable Medical Equipment Social History Tobacco Use [...] any questions you can contact pt at [phone]. documented in this encounter Plan of Treatment Upcoming Encounters Date Type Department Care Team (Late st Contact Info) Description 01/21/2025 11:15 AM EDT Office Visit [facility] OPTOMETRY 267 [place] [address] Britt Zurita, OD 267 [place] [address] documented as of this encounter Visit Diagnoses Not on filedocumented in this encounter Additional Health Concerns Assessment Noted Time PHQ-9 Depression Total Score: 3 03/18/20 24 11:59 AM EDT documented as of this encounter Care Teams Pot Holder Binder Relationship Specialty Start Date End Date Ligia Becerra MD [address] [place] [address] PCP - General Family Medicine 07/22/22 Jair Pro MD [address] [place] [address] Urology 07/24/24 Tim Herrera [address] [place] [address] Neurosurgery 07/24/24 Trung Slade MD [address] 3rd [place] [address] Gastroenterology 10/19/24 documented as of this encounter
--- OUTSIDE RECORDS SUMMARY | 2024-12-17 14:20 | XMS_ITS | Encounter Summary ---
Author Organization [employer] Address 75 [facility] 7t [place] [address] Care Team Providers Care Gore Seamer Name Role Phone Ligia Becerra MD Primary Care Provider [phone] Jair Pro MD Unavailable Tim Herrera Unavailable Trung Slade MD Unavailable [phone] Reason for Visit * Reason Onset Date Comments Nurse Triage 10/08/2023 Encounter Details Date Type Department Care Team (Late st Contact Info) Description 10/08/2023 Telephone [facility] MEDICINE 230 [place] [address] Ligia Becerra MD 230 [place] [address] Nurse Triage Social History Tobacco Use Types [...] PM EST Call to Ashley Angeles via [employer] video tanyard worker. Pt reports having back pain that is [...] Description 01/21/2025 11:15 AM EDT Office Visit [facility] OPTOMETRY [address] [place] [address] TarBritt burks, OD [address] [place] [address] documented as of this encounter Visit Diagnoses Not on filedocumented in this encounter Additional Health Concerns Assessment Noted Time PHQ-9 Depression Total Score: 18 023 3:56 PM EDT documented as of this encounter Care Teams Gore Seamer Relationship Specialty Start Date End Date Ligia Becerra MD 230 [place] [address] PCP - General Family Medicine 07/22/22 Jair Pro MD [address] [place] [address] Urology 07/24/24 Tim Herrera [address] [place] [address] Neurosurgery 07/24/24 Trung Slade MD [address] 3rd [place] [address] Gastroenterology 10/19/24 documented as of this encounter
--- OUTSIDE RECORDS SUMMARY | 2024-12-17 14:20 | XMS_ITS | Encounter Summary ---
Author Organization [employer] Address 75 [facility] 7t [place] [address] Care Team Providers Care Medical Educator Name Role Phone Ligia Becerra MD Primary Care Provider [phone] Jair Pro MD Unavailable [phone] Tim Herrera Unavailable Trung Slade MD Unavailable [phone] Reason for Visit * Reason Onset Date Comments ER Follow-up 10/14/2023 Encounter Details Date Type Department Care Team (Late st Contact Info) Description 10/14/2023 Telephone [facility] MEDICINE 230 [place], [place] [phone] Ligia Becerra MD 230 [place] [address] ER Follow-up Social History Tobacco Use Types [...] from Pt calling to inform went to [facility] ER yesterday 10/13/23 . Informs was prescribed medication but was sent to the incorrect pharmacy and pt does not have transportation. Pt does not know name ofmed . Please call pt to clarify . Note below taken from [facility] discharge summery medication in question is oxycodone, will send message to PCP to advise. Reevaluation #3: 10/14/23 14:55 received phone call from patient via public health sanitarian technician. Patient stating that oxycodone prescription was sent to incorrect pharmacy. Upon review, appears prescription was rejected. Initial order canceled. New prescription for 4 tabs of oxycodone 5 mg sent to [facility] in [place]. * Telephone Encounter - Yareli Billingsley - 10/14/2023 12:41 PM EST TC from Pt calling to inform went to [facility] ER yesterday 10/13/23 . Informs was prescribed medication but was sent to the incorrect pharmacy and pt does not have transportation. Pt does not know name ofmed . Please call pt to clarify . documented in this encounter Plan of Treatment Upcoming Encounters Date Type Department Care Team (Late st Contact Info) Description 01/21/2025 11:15 AM EDT Office Visit [facility] OPTOMETRY [address] [place] [address] Britt Zurita, OD 267 [place] [address] documented as of this encounter Visit Diagnoses Not on filedocumented in this encounter Additional Health Concerns Assessment Noted Time PHQ-9 Depression Total Score: 18 023 3:56 PM EDT documented as of this encounter Care Teams Medical Educator Relationship Specialty Start Date End Date Ligia Becerra MD 230 [place] [address] PCP - General Family Medicine 07/22/22 Jair Pro MD [address] [place] [address] Urology 07/24/24 Tim Herrera [address] [place] [address] Neurosurgery 07/24/24 Trung Slade MD [address] 3rd [place] [address] Gastroenterology 10/19/24 documented as of this encounter
--- OUTSIDE RECORDS SUMMARY | 2024-12-17 14:20 | XMS_ITS | Encounter Summary ---
Author Organization [employer] Address [address] [facility] 7t [place] [address] Care Team Providers Care Trapper Animal Name Role Phone Ligia Becerra MD Primary Care Provider [phone] Jair Pro MD Unavailable [phone] Tim Herrera Unavailable [phone] Trung Slade MD Unavailable [phone] Reason for Referral * Consultation (Routine) - Closed Specialty Diagnoses / Procedures Referred By Contac t Referred To Contact Physical Therapy Diagnoses Chronic bilateral thoracic back pain Bilateral deafness Ligia Becerra MD [address] [place] [address] Phone: tel: fax: [facility], Audiology [address] Phone: tel: fax: Referral ID Status Reason Start Date Expiration Date V isits Requested Visits Authorized [id number] Closed Specialty Services Required 06/22/2024 06/22/2025 1 1 Encounter Details Date Type Department Care Team (Late st Contact Info) Description 06/17/2024 Orders Only [facility] [address] [place] [address] Ligia Becerra MD [address] [place] [address] [phone] Chronic bilateral thoracic back pain (Primary Dx); [...] Upcoming Encounters Date Type Department Care Team ([facility] st Contact Info) Description 01/21/2025 11:15 AM EDT Office Visit [facility] OPT[facility] [address] [place] [address] Britt Zurita, OD [address] [place] [address] Scheduled Referrals Name Type Priority Associated Diagnoses [...] documented as of this encounter Care Teams Trapper Animal Relationship Specialty Start Date End Date Ligia Becerra MD [address] [place] [address] PCP - General Family Medicine 07/22/22 Jair Pro MD [address] [place] [address] Urology 07/24/24 Tim Herrera [address] [place] [address] Neurosurgery 07/24/24 Trung Slade MD [address] 3rd [place] [address] Gastroenterology 10/19/24 documented as of this encounter
--- OUTSIDE RECORDS SUMMARY | 2024-12-17 14:20 | XMS_ITS | Clinical Summary ---
Author Organization [employer] Address [address] [facility] 7t [place] [address] Care Team Providers Care Handle Turner Name Role Phone Ligia Becerra MD Primary Care Provider [phone]- [phone] Jair Pro MD Unavailable Tim Nolen Unavailable [phone] Trung Slade MD Unavailable [phone] Allergies No known active allergies Medications [...] per day. 40 g 11/23/19 25 Active traZODone (Desyrel) 100 MG tabletIndicatio ns:Insomnia, [...] day. 40 g 11/23/19 25 025 Discontinued clobetasol (Temovate) 0.05 % external solutionIndicat ions:Lesion of skin of scalp Apply topically 2 times daily for 14 days. 120 mL 11/23/19 25 025 Active Problems Patient Care Coordination No te Formatting of this note migh t be different from the original. [facility] Geospatial Imagery Intelligence Analyst: Yajaira, member services number [phone], provider services line, , option 4 Ecommerce Marketing Manager Agency: [facility] Problem Noted Date Diagnosed Date Vaginal discharge [...] Patient will benefit from follow through with [facility] services and recommendations as well as continued calls to the [facility]. At this time Jacob Angeles meets criteria for Visit Diagnoses: Problem List Items Addressed This Visit Other Adjustment disorder with mixed anxiety and depressed mood Personality disorder (CMS/HCC) Patient ready to address current needs Yes Strengths-Ashley is able to advocate for her wants and needs. She is in the contemplation stage of change. PLAN: 1. Follow up with [facility] [place]: Recommended for follow-up: As needed 2. Patient goal is to follow through with N services and recommendations 3. Behavioral Recommendations a. OP therapy with N b. Calling the [facility] daily Assessment & Plan (04/15/2023 1:06 PM [...] Patient will benefit from crisis evaluation with [facility] and group home placment. ?? At this [...] change. ?? PLAN: 1. Follow up with [facility]: Recommended for follow-up: As needed 2. Patient goal is to engage in crisis evaluation, OP therapy, psychiatry 3. Behavioral Recommendations a. [facility] b. Call [facility] daily at 9:00 AM for intake Assessment [...] of change. PLAN: 1. Follow up with [facility]: Recommended for follow-up: As needed 2. Patient goal is to engage in crisis evaluation, OP therapy, psychiatry 3. Behavioral Recommendations a. HC evelyn Call Latosha Ramirez at 9:00 AM [...] due after 03/18/25 -eye care facilitated by [facility] -dental home is [facility] -Healthcare proxy paperwork given 08/22/23, filed 03/18/24 Assessment & Plan (03/18/2024 11:39 AM EDT): -next PE due after 03/18/25 -eye care facilitated by [facility] -dental home is [facility] -Healthcare proxy paperwork given 08/22/23, filed [...] GI 09/17/21. I reached out to her educational adviser Ana Maria to assist her in following [...] 3:40 PM EST): I will be calling clinical case manager to discuss Pts option. Pt [...] when offering services. -Team meeting pt and auto service representative from safety, behavior health, case managment, viability and myself on 05/23/2023 done to reinforce which services to use when seeking assistance and setting up behavior expatiation when in the clinic. -[facility] ([facility]) HIGHWAY WORKER [phone] Assessment & Plan (11/19/2023 4:15 PM EDT): [...] when offering services. -Team meeting pt and auto service representative from safety, behavior health, case managment, viability and myself on 05/23/2023 done to reinforce which services to use when seeking assistance and setting up behavior expatiation when in the clinic. -[facility] ([facility]) HIGHWAY WORKER [phone] Assessment & Plan (08/22/2023 9:06 AM EST): [...] when offering services. -Team meeting pt and auto service representative from safety, behavior health, case managment, viability and myself on 05/23/2023 done to reinforce which services to use when seeking assistance and setting up behavior expatiation when in the clinic. -[facility] ([facility]) HIGHWAY WORKER [phone] Assessment & Plan (08/13/2023 9:50 AM EST): [...] when offering services. -Team meeting pt and auto service representative from safety, behavior health, case managment, viability and myself on 05/23/2023 done to reinforce which services to use when seeking assistance and setting up behavior expatiation when in the clinic. -[facility] ([facility]) HIGHWAY WORKER [phone] Assessment & Plan (05/23/2023 1:14 PM EDT): [...] when offering services. -Team meeting pt and auto service representative from safety, behavior health, case managment, viability and myself on 05/23/2023 done to reinforce which services to use when seeking assistance and setting up behavior expatiation when in the clinic. -[facility] ([facility]) HIGHWAY WORKER [phone] Assessment & Plan (02/05/2023 11:15 AM EDT): [...] offering services. -[facility] with Jose Ramos Jr. HIGHWAY WORKER , text . Assessment & Plan (10/28/2022 [...] prescribed by [facility] but pt did not brain picker. -She returned to pain management 06/02/2023 and was referred to neurosurgery -seen by Dr. Tim Nolen MD, PhD , Spine Fellowship Trained Neurosurgeon, Director, [facility] 06/25/2023 -Pt offered a multilevel decompression [...] prescribed by [facility] but pt did not brain picker. -She returned to pain management 06/02/2023 and was referred to neurosurgery -seen by Dr. Tim Nolen MD, PhD , Spine Fellowship Trained Neurosurgeon, Director, [facility] 06/25/2023 -Pt offered a multilevel decompression [...] prescribed by [facility] but pt did not brain picker. -She returned to pain management 06/02/2023 and was referred to neurosurgery -seen by Dr. Tim Nolen MD, PhD , Spine Fellowship Trained Neurosurgeon, Director, [facility] -Ptoffered a multilevel decompression of the [...] prescribed by [facility] but pt did not brain picker. -She returned to pain management 06/02/2023 and was referred to neurosurgery -seen by Dr. Tim Nolen MD, PhD , Spine Fellowship Trained Neurosurgeon, Director, [facility] -Ptoffered a multilevel decompression of the [...] prescribed by [facility] but pt did not brain picker. -She returned to pain management 06/02/2023 and was referred to neurosurgery -seen by Dr. Tim Nolen MD, PhD , Spine Fellowship Trained Neurosurgeon, Director, [facility] -Ptoffered a multilevel decompression of the [...] prescribed by [facility] but pt did not brain picker. -She returned to pain management 06/02/2023 and was referred to neurosurgery -seen by Dr. Tim Nolen MD, PhD , Spine Fellowship Trained Neurosurgeon, Director, [facility] -Ptoffered a multilevel decompression of the [...] prescribed by [facility] but pt did not brain picker. -She returned to pain management 06/02/2023 and was referred to neurosurgery -seen by Dr. Tim Nolen MD, PhD , Spine Fellowship Trained Neurosurgeon, Director, [facility] -Ptoffered a multilevel decompression of the [...] prescribed by [facility] but pt did not brain picker. -She returned to pain management 06/02/2023 and was referred to neurosurgery -seen by Dr. Tim Nolen MD, PhD , Spine Fellowship Trained Neurosurgeon, Director, [facility] -Ptoffered a multilevel decompression of the [...] proscribed cyclobenzaprine. I reached out to her educational adviser Ana Maria to assist her in following [...] 12/30/2014 Overview (08/13/2023): Audiology appointment 03/02/2023. -[facility] auto service representative N[facility] ([facility]) HIGHWAY WORKER [phone] Assessment & Plan (05/19/2024 3:18 PM EDT): Audiology appointment 03/02/2023. -[facility] auto service representative Nany ([facility]) HIGHWAY WORKER [phone] Assessment & Plan (03/18/2024 11:35 AM EDT): Audiology appointment 03/02/2023. -[facility] auto service representative N[facility] ([facility]) HIGHWAY WORKER [phone] Assessment & Plan (11/19/2023 4:14 PM EDT): Audiology appointment 03/02/2023. -[facility] auto service representative [facility] ([facility]) HIGHWAY WORKER [phone] Assessment & Plan (08/22/2023 9:06 AM EST): Audiology appointment 03/02/2023. -[facility] auto service representative [facility] ([facility]) HIGHWAY WORKER [phone] Assessment & Plan (08/13/2023 9:48 AM EST): Audiology appointment 03/02/2023. -[facility] auto service representative N[facility] ([facility]) HIGHWAY WORKER [phone] Assessment & Plan (05/23/2023 1:16 PM EDT): Audiology appointment 03/02/2023. -[facility] auto service representative [facility] ([facility]) HIGHWAY WORKER [phone] Assessment & Plan (02/05/2023 11:14 AM EDT): Audiology appointment 03/02/2023. [facility] with Jose Ramos Jr. HIGHWAY WORKER , text . Assessment & Plan (12/12/2022 [...] for appointment. I have asked her [employer] educational adviser to assist her. -CT 12/2021 Gallbladder surgically [...] for appointment. I have asked her [facility] educational adviser to assist her. -CT 12/2021 Gallbladder surgically [...] for appointment. I have asked her [employer] educational adviser to assist her. -CT 12/2021 Gallbladder surgically [...] for appointment. I have asked her Viability educational adviser to assist her. -CT 12/2021 Gallbladder surgically [...] for appointment. I have asked her Viability educational adviser to assist her. -CT 12/2021 Gallbladder surgically [...] for appointment. I have asked her Viability educational adviser to assist her. -CT 12/2021 Gallbladder surgically [...] for appointment. I have asked her Viability educational adviser to assist her. -CT 12/2021 Gallbladder surgically [...] for appointment. I have asked her Viability educational adviser to assist her. -CT 12/2021 COMPARISON: Multiple [...] of change. PLAN: 1. Follow up with [facility]: Recommended for follow-up: 03/20/23 with Larissa Robertson [...] Type Department Care Team Description 11/30/2024 Telephone [facility] [address] [place] [address] Ligia Becerra MD Appointment Request 11/23/2024 Refill [facility] [address] [place] [address] Ligia Becerra MD Insomnia, unspecified type 11/23/2024 Telephone [facility] [address] [place] [address] Ligia Becerra MD Nurse Triage 11/22/2024 2:20 PM EDT Office Visit [facility] WALK-IN [address] [address] Mary Sage NP Vaginal discharge (Primary Dx); Dysuria; Lesion of skin of scalp; Intertrigo of genital labia 11/09/[address] [address] Ligia Becerra MD Results 10/20/2024 Patient Outreach [address] [address] Ligia Becerra MD Care Coordination ([facility] outreach for [facility] transportation needs-referral completed /) 10/20/[address] [address] Ligia Becerra MD PT1 10/19/2024 3:20 PM EDT [facility] [address] [address] Ligia Becerra MD Chronic bilateral thoracic back pain (Primary Dx); Preop examination; Lower abdominal pain; Benign prostatic hyperplasia with urinary frequency; Insomnia, unspecified type; Colon cancer screening 10/19/[address] [address] Ligia Becerra MD 10/18/2024 [facility] [address] [address] Joselo Esparza MD 10/18/[address] [address] Ligia Becerra MD Nurse Triage 10/06/2024 Telephone [facility] ADULT DENTAL [address] [place] [address] PerlaMayte boyer 09/23/2024 4:00 PM EST [facility] [address] [address] Rectal bleeding (Primary Dx); Abdominal bloating; Chronic bilateral low back pain with bilateral sciatica 09/23/[address] [address] Ligia Beecrra MD Nurse Triage 09/20/2024 Telephone [facility] [address] [place], [place] [phone] Ligia Becerra MD Medication Question from Last 3 Months Immunizations Name Administration [...] Description 01/21/2025 11:15 AM EDT Office Visit [facility] OPTOMETRY [address] [place] [address] Britt Zurita, OD [address] [place] [address] Health Maintenance Due Date Last Done Comments [...] Specific Antigen 2.68 <0.05 - 4.0 ng/mL [facility] Comment:PSA methodology: Sharon Torres i ChemiluminescentMicroparticle Immunoassay (CMIA) Blood Venous blood specimen / Unknown 11/26/2024 4:58 PM EDT 11/26/2024 4:58 PM EDT Ligia Becerra MD LAB BLOOD ORDERABLES Final Result [facility] [address] [place] [phone] * POCT urinalysis dipstick manually resulted [...] DERABLES Final Result * (ABNORMAL) Colonoscopy (07/02/2024) Pathologist [facility] Colonoscopy Abnormal( A) Normal Comment:tubular adenoma with Dr. Slade Historical Provider HEALTH MAINTENANCE Final Result * Hepatitis C Antibody with Reflex to HCV, RNA, Quantitative, Real-Time PCR (07/29/2022 11:16 AM EST) Pathologist [facility] Hepatitis C Antibody NON-REACT MOE NON-REACT MOE [facility] [place] [facility] Index 0.06 <1.00 [facility] [place] [facility] Comment: HCV antibody was non-reactive. There is no laboratory evidence of HCV infection. In most cases, no further action is required. However, if recent HCV exposure is suspected, a test for HCV RNA (test code 39718) is suggested. For additional information please refer to http://education.SIL[employer] Systems/faq/BLJ05c9 (This link is being provided for informational/ educational purposes only.) Blood Venous blood specimen / Unknown 07/29/2022 11:16 AM EST 07/29/2022 11:17 AM EST Narrative [facility] - 08/02/2022 10:49 PM EST FASTING:YES FASTING: YES Ligia Becerra MD LAB BLOOD ORDERABLES Final Result [facility] [address] [facility], 3rd [address], [place] [address] [facility] [place] [facility] [address] [facility], (Nl2) [place] [address] * (ABNORMAL) Lipid Panel, Standard (07/29/2022 11:16 AM EST) [facility] Signature Cholesterol, Total 130 <200 mg/dL [facility] [place] [facility] HDL Cholesterol 29(L) > OR = 40 mg/dL [facility] [place] [facility] Triglycerides 80 <150 mg/dL [facility] [place] [facility] LDL Cholesterol 84 mg/dL (calc) [facility] [place] [facility] Comment: Reference range: <100 Desirable range <100 mg/dL for primary prevention; ?? <70 mg/dL for patients with CHD or diabetic patients with > or = 2 CHD risk factors. LDL-C is now calculated using the Barrington-Kadi calculation, which is a validated novel method providing better accuracy than the Friedewald equation in the estimation of LDL-C. Barrington SCHUMACHER et al. EITAN. 2013;310(19): 1603-6057 (http://education.Edgeware.Precursor [employer]ics/faq/MMK526) Chol/HDLC Ratio 4.5 <5.0 (calc) [facility] [place] [facility] Non-HDL Cholesterol 101 <130 mg/dL (calc) [facility] [place] [facility] Comment: For patients with diabetes plus 1 major ASCVD risk factor, treating to a non-HDL-C goal of <100 mg/dL (LDL-C of <70 mg/dL) is considered a therapeutic option. Blood Venous blood specimen / Unknown 07/29/2022 11:16 AM EST 07/29/2022 11:17 AM EST Narrative [facility] - 08/02/2022 10:49 PM EST FASTING:YES FASTING: YES us Ligia Becerra MD LAB BLOOD ORDERABLES Final Result [facility] [address] [facility], 3rd Fl, [place] [address] [employer] [facility] [place] [facility] [address] [facility], (Nl2) [place] [address] from Last 3 Months or Most Recently Relevant to Health Maintenance Insurance [facility] (O D-SNP) DENTAL [facility] Advance Directives Documents on File Type Date Recorded Patient Sustainability Project Coordinator Expl anation Advance Directives and Living Will 03/23/2024 10:24 AM Health Care Proxy Care Teams Handle Turner Relationship Specialty Start Date End Date Mariam, MD Ligia [address] [place] [address] PCP - General Family Medicine 07/22/22 Jair Pro MD [address] [place] [address] Urology 07/24/24 Tim Nolen [address] [place] [address] Neurosurgery 07/24/24 Trung Slade MD [address] 3rd [place] [address] Gastroenterology 10/19/24
--- OUTSIDE RECORDS SUMMARY | 2024-12-17 14:20 | XMS_ITS | Encounter Summary ---
Author Organization [employer] Address 75 [facility] 7t [place] [address] Care Team Providers Care Self Sealing Fuel Tank Builder Name Role Phone Ligia Becerra MD Primary Care Provider [phone] Jair Pro MD Unavailable Tim Herrera Unavailable [phone] Trung Slade MD Unavailable [phone] Reason for Visit * Reason Onset Date Comments PT1 10/20/2024 Encounter Details Date Type Department Care Team (Late st Contact Info) Description 10/20/2024 Telephone [facility] [address] [place] [address] Ligia Becerra MD [address] [place] [address] PT1 Social History Tobacco Use Types Packs/Day [...] is your housing situation today? I have ojdie hernandez 05/26/[address] you [...] Y/N: Yes Provider name or facility name: [address] [place] [address] Escort needed: Y/N: Yes Do you have a wheelchair: Y/N: No ( has walker) If yes- Manual or electric: N/A Visits: (1x monthly) Appt November 08 documented in this encounter Plan of Treatment Upcoming Encounters Date Type Department Care Team (Late st Contact Info) Description 01/21/2025 11:15 AM EDT Office Visit [facility] OPTOMETRY [address] [place], [place] [phone] Britt Zurita, OD [address] [place], [place] [phone] documented as of this encounter Visit Diagnoses Not on filedocumented in this encounter Additional Health Concerns Assessment Noted Time PHQ-9 Depression Total Score: 3 03/18/20 24 11:59 AM EDT documented as of this encounter Care Teams Self Sealing Fuel Tank Builder Relationship Specialty Start Date End Date Ligia Becerra MD [address] [place] [address] PCP - General Family Medicine 07/22/22 Jair Pro MD [address] [place] [address] Urology 07/24/24 Tim Herrera [address] [place] [address] Neurosurgery 07/24/24 Trung Slade MD [address] 3rd [place] [address] Gastroenterology 10/19/24 documented as of this encounter
--- OUTSIDE RECORDS SUMMARY | 2024-12-17 14:20 | XMS_ITS | Encounter Summary ---
Author Organization [employer] Address [address] [facility] [address] [address] 7t [place] [address] Care Team Providers Care Barber Shop Manager Name Role Phone Ligia Becerra MD Primary Care Provider [phone] Jair Pro MD Unavailable Tim Herrera Unavailable [phone] Trung Slade MD Unavailable [phone] Encounter Details Date Type Department Care Team (Late st Contact Info) Description 02/04/2023 Abstract [facility] [address] [place] [address] Ligia Becerra MD [address] [place], [place] [phone] Social History Tobacco Use Types Packs/Day Years [...] Description 01/21/2025 11:15 AM EDT Office Visit [facility] OPTOMETRY [address] [place] [address] Britt Zurita, OD [address] [place] [address] documented as of this encounter Visit Diagnoses Not on filedocumented in this encounter Care Teams Barber Shop Manager Relationship Specialty Start Date End Date Ligia Becerra MD [address] [place] [address] PCP - General Family Medicine 07/22/22 Jair Pro MD [address] [place] [address] Urology 07/24/24 Tim Herrera [address] [place] [address] Neurosurgery 07/24/24 Trung Slade MD [address] 3rd [place] [address] Gastroenterology 10/19/24 documented as of this encounter
--- OUTSIDE RECORDS SUMMARY | 2024-12-17 14:22 | XMS_ITS | Encounter Summary ---
Author Organization [employer] Address [address] [facility] 7t [place] [address] Care Team Providers Care Custom Feed Mill Operator Helper Name Role Phone Ligia Becerra MD Primary Care Provider +[phone]- [phone] Jair Pro MD Unavailable [phone] Tim Herrera Unavailable [phone] Trung Slade MD Unavailable [phone] Reason for Visit * Reason Onset Date Comments Durable Medical Equipment 03/22/2024 Encounter Details Date Type Department Care Team (Late st Contact Info) Description 03/22/2024 Telephone [facility] MEDICINE 230 [place] [address] Ligia Becerra MD 230 [place] [address] Durable Medical Equipment Social History Tobacco Use [...] the past 12 months, has t he [employer], gas, oil or water company threatened to [...] Sopra Cream Recliner Please contact pt at [phone] documented in this encounter Plan of Treatment Upcoming Encounters Date Type Department Care Team (Late st Contact Info) Description 01/21/2025 11:15 AM EDT Office Visit [facility] OPTOMETRY [address] [place] [address] Britt Zurita, OD [address] [place] [address] documented as of this encounter Visit Diagnoses Not on filedocumented in this encounter Additional Health Concerns Assessment Noted Time PHQ-9 Depression Total Score: 3 03/18/20 24 11:59 AM EDT documented as of this encounter Care Teams Custom Feed Mill Operator Helper Relationship Specialty Start Date End Date Ligia Becerra MD [address] [place] [address] PCP - General Family Medicine 07/22/22 Jair Pro MD [address] [place] [address] Urology 07/24/24 Tim Herrera [address] [place] [address] Neurosurgery 07/24/24 Trung Slade MD [address] 3rd Floor [place] [address] Gastroenterology 10/19/24 documented as of this encounter
--- OUTSIDE RECORDS SUMMARY | 2024-12-17 14:22 | XMS_ITS | Encounter Summary ---
Author Organization [employer] Address 75 [facility] 7t [place] [address] Care Team Providers Care Inspector Final Assembly Mechanical Name Role Phone Ligia Becerra MD Primary Care Provider [phone]- [phone] Jair Pro MD Unavailable Tim Herrera Unavailable Trung Slade MD Unavailable [phone] Reason for Visit * Reason Onset Date Comments Nurse Triage 08/15/2023 Encounter Details Date Type Department Care Team (Late st Contact Info) Description 08/15/2023 Telephone [facility] MEDICINE 230 [place] [address] Ligia Becerra MD 230 [place] [address] Nurse Triage Social History Tobacco Use Types [...] Description 01/21/2025 11:15 AM EDT Office Visit [facility] OPTOMETRY [address] [place] [address] Britt Zurita, OD 267 [place] [address] documented as of this encounter Visit Diagnoses Not on filedocumented in this encounter Additional Health Concerns Assessment Noted Time PHQ-9 Depression Total Score: 18 023 3:56 PM EDT documented as of this encounter Care Teams Inspector Final Assembly Mechanical Relationship Specialty Start Date End Date Ligia Becerra MD 230 [place] [address] PCP - General Family Medicine 07/22/22 Jair Pro MD [address] [place] [address] Urology 07/24/24 Tim Herrera [address] [place] [address] Neurosurgery 07/24/24 Trung Slade MD [address] 3rd [place] [address] Gastroenterology 10/19/24 documented as of this encounter
--- OUTSIDE RECORDS SUMMARY | 2024-12-17 14:22 | XMS_ITS | Encounter Summary ---
Author Organization [employer] Address [address] [facility] 7t [place] [address] Care Team Providers Care Air Conditioner Installer Helper Name Role Phone Ligia Becerra MD Primary Care Provider +1- [phone] Jair Pro MD Unavailable Tim Herrera Unavailable Trung Slade MD Unavailable [phone] Encounter Details Date Type Department Care Team (Late st Contact Info) Description 11/01/2022 Orders Only [facility] MEDICINE 230 [place], [place] [phone] Ligia Becerra MD [address] [place], [place] [phone] Bilateral deafness (Primary Dx) Social History Tobacco [...] Description 01/21/2025 11:15 AM EDT Office Visit [facility] OPTOMETRY [address] [place] [address] Britt Zurita, OD [address] [place] [address] documented as of this encounter Visit Diagnoses Diagnosis Bilateral deafness- Primary Unspecified hearing loss documented in this encounter Care Teams Air Conditioner Installer Helper Relationship Specialty Start Date End Date Ligia Becerra MD [address] [place] [address] PCP - General Family Medicine 07/22/22 Jair Pro MD [address] [place] [address] Urology 07/24/24 Tim Herrera [address] [place] [address] Neurosurgery 07/24/24 Trung Slade MD [address] 3rd [place] [address] Gastroenterology 10/19/24 documented as of this encounter
--- OUTSIDE RECORDS SUMMARY | 2024-12-17 14:22 | XMS_ITS | Encounter Summary ---
Author Organization [employer] Address [address] [place] [address] 7t [place] [address] Care Team Providers Care Upholstery Trimmer Name Role Phone Ligia Becerra MD Primary Care Provider [phone]- [phone] Jair Pro MD Unavailable [phone] Tim Herrera Unavailable Trung Slade MD Unavailable [phone] Reason for Visit * Reason Onset Date Comments returnin call back 09/17/2022 Encounter Details Date Type Department Care Team (Late st Contact Info) Description 09/17/2022 Telephone [facility] MEDICINE [address] [place] [address] Ligia Becerra MD 230 [place] [address] returnin call back Social History Tobacco Use [...] EST Tc from pt returning phone call, commercial real estate underwriter see's that provider would like to schedule a 30 min appt inperson with pt. Please contact pt at [phone] documented in this encounter Plan of Treatment Upcoming Encounters Date Type Department Care Team (Late st Contact Info) Description 01/21/2025 11:15 AM EDT Office Visit [facility] OPTOMETRY [address] [place] [address] Britt Zurita, OD [address] [place] [address] documented as of this encounter Visit Diagnoses Not on filedocumented in this encounter Care Teams Upholstery Trimmer Relationship Specialty Start Date End Date Ligia Becerra MD 230 [place] [address] PCP - General Family Medicine 07/22/22 Jair Pro MD [address] [place] [address] Urology 07/24/24 Tim Herrera [address] [place] [address] Neurosurgery 07/24/24 Trung Slade MD [address] 3rd [place] [address] Gastroenterology 10/19/24 documented as of this encounter
--- OUTSIDE RECORDS SUMMARY | 2024-12-17 14:22 | XMS_ITS | Encounter Summary ---
Author Organization [employer] Address [address] [facility] 7t [place] [address] Care Team Providers Care Electronic Funds Transfer Coordinator Name Role Phone Ligia Becerra MD Primary Care Provider [phone]- [phone] Jair Pro MD Unavailable [phone] Tim Herrera Unavailable Trung Slade MD Unavailable [phone] Reason for Visit * Reason Onset Date Comments Med Refill 07/18/2023 Encounter Details Date Type Department Care Team (Late st Contact Info) Description 07/18/2023 Telephone [facility] MEDICINE 230 [place] [address] Ligia Becerra MD 230 [place] [address] Med Refill Social History Tobacco Use Types [...] Strength) 500 MG tablet Please sent to [facility] documented in this encounter Plan of Treatment Upcoming Encounters Date Type Department Care Team (Late st Contact Info) Description 01/21/2025 11:15 AM EDT Office Visit [facility] OPTOMETRY 267 [place], [place] [phone] Britt Zurita, OD 267 [place] [address] documented as of this encounter Visit Diagnoses Not on filedocumented in this encounter Additional Health Concerns Assessment Noted Time PHQ-9 Depression Total Score: 18 023 3:56 PM EDT documented as of this encounter Care Teams Electronic Funds Transfer Coordinator Relationship Specialty Start Date End Date Ligia Becerra MD 230 [place] [address] PCP - General Family Medicine 07/22/22 Jair Pro MD [address] [place] [address] Urology 07/24/24 Tim Herrera [address] [place] [address] Neurosurgery 07/24/24 Trung Slade MD [address] 3rd [place] [address] Gastroenterology 10/19/24 documented as of this encounter
--- OUTSIDE RECORDS SUMMARY | 2024-12-17 14:22 | XMS_ITS | Encounter Summary ---
Author Organization [employer] Address 75 [facility] 7t [place] [address] Care Team Providers Care District Gauger Name Role Phone Ligia Becerra MD Primary Care Provider [phone]- [phone] Jair Pro MD Unavailable Tim Herrera Unavailable Trung Slade MD Unavailable [phone] Encounter Details Date Type Department Care Team (Latest Contact Info) Description 06/19/2022 Abstract [facility] CONVERSIONS Dental, Provider, DDS Social History [...] Description 01/21/2025 11:15 AM EDT Office Visit [facility] OPTOMETRY [address] [place], [place] [phone] Britt Zurita OD 267 [place], [place] [phone] documented as of this encounter Visit Diagnoses Not on filedocumented in this encounter Care Teams District Gauger Relationship Specialty Start Date End Date Ligia Becerra MD [address] [place] [address] PCP - General Family Medicine 07/22/22 Jair Pro MD [address] [place] [address] Urology 07/24/24 Tim Herrera [address] [place] [address] Neurosurgery 07/24/24 Trung Slade MD [address] 3rd [place] [address] Gastroenterology 10/19/24 documented as of this encounter
--- OUTSIDE RECORDS SUMMARY | 2024-12-17 14:22 | XMS_ITS | Encounter Summary ---
Author Organization [employer] Address 75 [facility] 7t [place] [address] Care Team Providers Care Livestock Farmworker Name Role Phone Ligia Becerra MD Primary Care Provider [phone]- [phone] Jair Pro MD Unavailable Tim Herrera Unavailable Trung Slade MD Unavailable [phone] Reason for Visit * Reason Onset Date Comments Requesting A Phone Call 09/18/2022 Encounter Details Date Type Department Care Team (Late st Contact Info) Description 09/18/2022 Telephone [facility] MEDICINE [address] [place] [phone] Ligia Becerra MD 230 [place], [place] [phone] Requesting A Phone Call Social History Tobacco [...] specific in why. Please contact pt at [phone] documented in this encounter Plan of Treatment Upcoming Encounters Date Type Department Care Team (Late st Contact Info) Description 01/21/2025 11:15 AM EDT Office Visit [facility] OPTOMETRY 267 [place] [address] Britt Zurita, OD 267 [place] [address] documented as of this encounter Visit Diagnoses Not on filedocumented in this encounter Care Teams Livestock Farmworker Relationship Specialty Start Date End Date Ligia Becerra MD 230 [place] [address] PCP - General Family Medicine 07/22/22 Jair Pro MD [address] [place] [address] Urology 07/24/24 Tim Herrera [address] [place] [address] Neurosurgery 07/24/24 Trung Slade MD [address] 3rd [place] [address] Gastroenterology 10/19/24 documented as of this encounter
--- OUTSIDE RECORDS SUMMARY | 2024-12-17 14:22 | XMS_ITS | Encounter Summary ---
Author Organization [employer] Address [address] [facility] 7t [place] [address] Care Team Providers Care Crumb Packer Name Role Phone Ligia Becerra MD Primary Care Provider [phone]- [phone] Jair Pro MD Unavailable Tim Herrera Unavailable [phone] Trung Slade MD Unavailable [phone] Reason for Visit * Reason Onset Date Comments Created in error 04/09/2024 Encounter Details Date Type Department Care Team (Late st Contact Info) Description 04/09/2024 Telephone [facility] MEDICINE 230 [place] [address] Ligia Becerra MD 230 [place] [address] Created in error Social History Tobacco Use [...] the past 12 months, has t he [employer], gas, oil or water company threatened to [...] Description 01/21/2025 11:15 AM EDT Office Visit [facility] OPTOMETRY 267 [place], [place] [phone] Britt Zurita OD 267 [place] [address] documented as of this encounter Visit Diagnoses Not on filedocumented in this encounter Additional Health Concerns Assessment Noted Time PHQ-9 Depression Total Score: 3 03/18/20 24 11:59 AM EDT documented as of this encounter Care Teams Crumb Packer Relationship Specialty Start Date End Date Ligia Becerra MD [address] [place] [address] PCP - General Family Medicine 07/22/22 Jair Pro MD [address] [place] [address] [address] [place] [address] Urology 07/24/24 Tim Herrera [address] [place] [address] Neurosurgery 07/24/24 Trung Slade MD [address] [place] [address] Gastroenterology 10/19/24 documented as of this encounter
--- OUTSIDE RECORDS SUMMARY | 2024-12-17 14:22 | XMS_ITS | Encounter Summary ---
Author Organization [employer] Address [address] [facility] [address] 7t [place] [address] Care Team Providers Care Heading Matcher And Assembler Name Role Phone Ligia Becerra MD Primary Care Provider +1- [phone] Jair Pro MD Unavailable [phone] Tim Herrera Unavailable [phone] Trung Slade MD Unavailable [phone] Encounter Details Date Type Department Care Team (Late st Contact Info) Description 07/30/2023 Telephone [facility] MEDICINE 230 [place] [address] Ligia Becerra MD 230 [place] [address] Social History Tobacco Use Types Packs/Day Years [...] 11:15 AM EDT Office Visit [facility] OPTOMETRY 267 [place] [address] TarkaBritt, OD [address] [place] [address] documented as of this encounter Visit Diagnoses Not on filedocumented in this encounter Additional Health Concerns Assessment Noted Time PHQ-9 Depression Total Score: 18 023 3:56 PM EDT documented as of this encounter Care Teams Heading Matcher And Assembler Relationship Specialty Start Date End Date iLgia Becerra MD 230 [place] [address] PCP - General Family Medicine 07/22/22 Jair Pro MD [address] [place] [address] Urology 07/24/24 Tim Herrera [address] [place] [address] Neurosurgery 07/24/24 Trung Slade MD [address] 3rd [place] [address] Gastroenterology 10/19/24 documented as of this encounter
--- OUTSIDE RECORDS SUMMARY | 2024-12-17 14:22 | XMS_ITS | Clinical Summary ---
Author Organization [facility] Address [address] [place] [address] Care Team Providers Care Timber Hand Name Role Phone Unavailable Primary Care Provider [...]
--- OUTSIDE RECORDS SUMMARY | 2024-12-17 14:22 | XMS_ITS | Encounter Summary ---
Author Organization [employer] Address [address] [facility] 7t [place] [address] Care Team Providers Care Appeals Representative Name Role Phone Ligia Becerra MD Primary Care Provider [phone]- [phone] Jair Pro MD Unavailable Tim Herrera Unavailable [phone] Trung Slade MD Unavailable Reason for Visit * Reason Onset Date Comments Nurse Triage 09/15/2023 Encounter Details Date Type Department Care Team (Late st Contact Info) Description 09/15/2023 Telephone [facility] MEDICINE 230 [place] [address] Ligia Becerra MD 230 [place] [address] Nurse Triage Social History Tobacco Use Types [...] accepted this outcome Please contact pt at [phone] documented in this encounter Plan of Treatment Upcoming Encounters Date Type Department Care Team (Late st Contact Info) Description 01/21/2025 11:15 AM EDT Office Visit [facility] OPTOMETRY 267 [place] [address] Britt Zurita, OD 267 [place] [address] documented as of this encounter Visit Diagnoses Not on filedocumented in this encounter Additional Health Concerns Assessment Noted Time PHQ-9 Depression Total Score: 18 023 3:56 PM EDT documented as of this encounter Care Teams Appeals Representative Relationship Specialty Start Date End Date Ligia Becerra MD 230 [place] [address] PCP - General Family Medicine 07/22/22 Jair Pro MD [address] [place] [address] Urology 07/24/24 Tim Herrera [address] [place] [address] Neurosurgery 07/24/24 Trung Slade MD [address] 3rd [place] [address] Gastroenterology 10/19/24 documented as of this encounter
--- OUTSIDE RECORDS SUMMARY | 2024-12-17 14:22 | XMS_ITS | Encounter Summary ---
Author Organization [employer] Address [address] [facility] 7t [place] [address] Care Team Providers Care Biomedical Engineering Director Name Role Phone Ligia Becerra MD Primary Care Provider [phone]- [phone] Jair Pro MD Unavailable [phone] Tim Herrera Unavailable Trung Slade MD Unavailable [phone] Reason for Visit * Reason Onset Date Comments Call back request 08/14/2023 Encounter Details Date Type Department Care Team (Late st Contact Info) Description 08/14/2023 Telephone [facility] MEDICINE 230 [place], [place] [phone] Ligia Becerra MD 230 [place] [address] Call back request Social History Tobacco Use [...] 3:00 PM EST Tc from pt via [facility] interpretor #[id number] requesting call back wanting to speak with provider. Pt didn't want to information regarding the call, she stated pcp knows what's going on. Please contact pt at [phone]. documented in this encounter Plan of Treatment Upcoming Encounters Date Type Department Care Team (Late st Contact Info) Description 01/21/2025 11:15 AM EDT Office Visit [facility] OPTOMETRY 267 [place] [address] TarBritt burks, OD 267 [place] [address] documented as of this encounter Visit Diagnoses Not on filedocumented in this encounter Additional Health Concerns Assessment Noted Time PHQ-9 Depression Total Score: 18 023 3:56 PM EDT documented as of this encounter Care Teams Biomedical Engineering Director Relationship Specialty Start Date End Date Ligia Becerra MD 230 [place] [address] PCP - General Family Medicine 07/22/22 Jair Pro MD [address] [place] [address] Urology 07/24/24 Tim Herrera [address] [place] [address] Neurosurgery 07/24/24 Trung Slade MD [address]rd [place] [address] Gastroenterology 10/19/24 documented as of this encounter
--- OUTSIDE RECORDS SUMMARY | 2024-12-17 14:22 | XMS_ITS | Encounter Summary ---
Author Organization [employer] Address [address] [facility] 7t [place] [address] Care Team Providers Care Pathology Transcriptionist Name Role Phone Ligia Becerra MD Primary Care Provider [phone]- [phone] Jair Pro MD Unavailable Tim Herrera Unavailable Trung Slade MD Unavailable [phone] Encounter Details Date Type Department Care Team (Late Contact Info) Description 08/13/2022 Orders Only [facility] MEDICINE 230 [place] [address] Ligia Becerra MD 230 [place] [address] Social History Tobacco Use Types Packs/Day Years [...] Department Care Team (Late Contact Info) Description 01/21/2025 11:15 AM EDT Office Visit [facility] OPTOMETRY [address] [place] [address] Parminder Britt, OD [address] [place] [address] documented as of this encounter Visit Diagnoses Not on filedocumented in this encounter Care Teams Pathology Transcriptionist Relationship Specialty Start Date End Date Ligia Becerra MD 230 [place] [address] PCP - General Family Medicine 07/22/22 Jair Pro MD [address] [place] [address] Urology 07/24/24 Tim Herrera [address] [place] [address] Neurosurgery 07/24/24 Trung Slade MD [address] 3rd [place] [address] Gastroenterology 10/19/24 documented as of this encounter
--- NOTE | 2024-12-17 14:28 | HO.SPINEOV ---
Intake Visit Reasons: MRI f/u and possible surgical discussion Intake Note: Mr. Long is here today to F/u on the results to his MRI and possible surgical discussion. Integrated Logistics Operations Manager Required: Yes Integrated Logistics Operations Manager Name: Tablet ASL Allergies No Known Allergies [No Known Allergies*] Allergy (Verified 09/06/24 13:36) Assessment & Plan Assessment & Plan (1) Spinal stenosis of lumbar region with neurogenic claudication: Code(s): M48.062 - Spinal stenosis, lumbar region with neurogenic claudication Category: Medical Plan Mr Long is here in follow up today. Integrated Logistics Operations Manager sign language [id number] was used for this visit. I reviewed his thoracic and cervical MRI done at [place] with Dr. Herrera. 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 The thoracic spine does not show any meaningful amount of stenosis. There is a small area at T11-12 where there is moderate stenosis in the radiologist questions some posterior column T2 cord signal change, but we do not find it meaningful enough that it would justify surgery. That means we are back to discussing the patient's bilateral lower extremity pain with walking and standing. The symptoms seem consistent enough with stenosis and this is the 2nd time we have evaluated him for this. The 1st time we had to abort the surgery before we could start because of a urinary tract infection. We are adjusting the plan, at this point the stenosis at L4-5 is critical, but L2-3 is only moderate and we do not feel that it would justify decompression. We also counseled the patient that the surgery would not be intended to target his back pain, but rather targeting the leg pain instead. The patient understands and would like to proceed with surgery. We had a lengthy discussion about the fact that this is day surgery and the patient needs to plan accordingly to have a ride to the hospital and home. We have tentatively plan the surgery for January 06. Pt was given risk and benefits of surgery including but not limited to infection, hematoma , nerve injury,durotomy, weakness,bowel/bladder injury, persistent pain, persistent back pain as well as the option to continue with conservative treatment and patient wishes to proceed with surgery. Pt is aware they should stop their motrin, aspirin 7 days prior to surgery. All questions were answered to the best of our ability. If there is anything about this patients medical history that we have overlooked or concerns you have about us proceeding with surgery we would appreciate any input you can offer. Total amount of time spent in this visit was 20 minutes in discussion of symptoms, lumbar imaging results and subsequent plan of care Martir Herrera MD,PhD [facility] Coding Level of Care Code Est Pt Level 3 (72741) Diagnoses Spinal stenosis of lumbar region with neurogenic claudication M48.062
== END 2024-12-17 15:13 | disposition home or self-care (01) ==
LOC: HO.HNS 14:15
PROVIDERS: Visit Provider Physician Assistant
DX: M48.062 Spinal stenosis, lumbar region with neurogenic claudication (principal)
CPT/HCPCS: 99213

== ENCOUNTER → 2024-12-17 14:15 | Outpatient (BNVA) | payer OTHER, SELFPAY | PROVIDERS: Visit Provider Physician Assistant | DX: M48.062 Spinal stenosis, lumbar region with neurogenic claudication (principal) | CPT/HCPCS: 99212 ==

== ENCOUNTER 2024-12-31 16:18 | Outpatient (REF) | payer OTHER, SELFPAY ==
--- NOTE | ~2024-12-31 | XR_ITS ---
EXAMINATION: XR CHEST CLINICAL INFORMATION: lung pain COMPARISON: 08/18/2024. 01/21/2024. TECHNIQUE: 2 views of the chest were obtained. FINDINGS: The cardiac, hilar, and mediastinal contours are normal. The lungs are clear bilaterally. There is no pneumothorax or pleural effusion. There is no focal osseous or soft tissue abnormality. There are spinal degenerative changes. There are cholecystectomy clips. XR/XR chest 2V IMPRESSION: No active pulmonary disease. Electronically signed by: Garth Lafleur MD 12/31/2024 04:42 PM EDT RP
== END 2024-12-31 16:19 | disposition home or self-care (01) ==
LOC: HO.HHCX 16:18
PROVIDERS: Visit Provider Nurse Practitioner
DX: R05.9 Cough, unspecified (principal)
CPT/HCPCS: 71046

== ENCOUNTER → 2024-12-31 16:18 | Outpatient (BNV) | payer OTHER, SELFPAY | PROVIDERS: Visit Provider Radiology Diagnostic Radiology | DX: R07.1 Chest pain on breathing (principal) | CPT/HCPCS: 71046 ==

== ENCOUNTER → 2025-01-06 10:11 | Outpatient (BNV) | payer OTHER, SELFPAY | PROVIDERS: Visit Provider Physician Assistant | DX: M48.062 Spinal stenosis, lumbar region with neurogenic claudication (principal) | CPT/HCPCS: 63047; 99499 ==

== ENCOUNTER → 2025-01-06 10:11 | Day surgery (SDC) | payer OTHER, SELFPAY ==
--- OUTSIDE RECORDS SUMMARY | 2024-12-21 06:11 | XMS_ITS | Encounter Summary ---
Author Organization [employer] Address [address] [facility] 7t [place] [address] Care Team Providers Care Youth Services Librarian Name Role Phone Ligia Becerra MD Primary Care Provider +1- [phone] Jair Pro MD Unavailable [phone] Tim Herrera Unavailable Trung Slade MD Unavailable [phone] Reason for Visit * Reason Onset Date Comments PT1 10/20/2024 Encounter Details Date Type Department Care Team (Late st Contact Info) Description 10/20/2024 Telephone [facility] [address] [place] [address] Ligia Becerra MD [address] [place] [address] PT1 Social History Tobacco Use Types Packs/Day [...] Y/N: Yes Provider name or facility name: [address] [place] [address] Escort needed: Y/N: Yes Do you have a wheelchair: Y/N: No ( has walker) If yes- Manual or electric: N/A Visits: (1x monthly) Appt November 08 documented in this encounter Plan of Treatment Upcoming Encounters Date Type Department Care Team (Late st Contact Info) Description 01/21/2025 11:15 AM EDT Office Visit [facility] [address] [place], [place] [phone] Britt Zurita, OD [address] [place], [place] [id number] 04/06/2025 3:15 PM EDT Office Visit [facility] [address] [place] [address] Ligia Becerra MD [address] [place] [address] documented as of this encounter Visit Diagnoses Not on filedocumented in this encounter Additional Health Concerns Assessment Noted Time PHQ-9 Depression Total Score: 3 03/18/20 24 11:59 AM EDT documented as of this encounter Care Teams Youth Services Librarian Relationship Specialty Start Date End Date Ligia Becerra MD [address] [place] [address] PCP - General Family Medicine 07/22/22 Jair Pro MD [address] [place] [address] Urology 07/24/24 Tim Herrera [address] [place] [address] Neurosurgery 07/24/24 Trung Slade MD [address] 3rd [place] [address] Gastroenterology 10/19/24 documented as of this encounter
--- OUTSIDE RECORDS SUMMARY | 2024-12-21 06:11 | XMS_ITS | Encounter Summary ---
Author Organization [employer] Address 75 [facility] 7t [place] [address] Care Team Providers Care Waste Hand Name Role Phone Ligia Becerra MD Primary Care Provider [phone]- [phone] Jair Pro MD Unavailable Tim Herrera Unavailable Trung Slade MD Unavailable [phone] Reason for Visit * Reason Onset Date Comments ER Follow-up 10/14/2023 Encounter Details Date Type Department Care Team (Late st Contact Info) Description 10/14/[address] [facility] [address] [place], [place] [address] Ligia Becerra MD [address] [place] [address] ER Follow-up Social History Tobacco Use Types [...] from Pt calling to inform went to [facility] ER yesterday 10/13/23 . Informs was prescribed medication but was sent to the incorrect pharmacy and pt does not have transportation. Pt does not know name ofmed . Please call pt to clarify . Note below taken from [facility] discharge summery medication in question is oxycodone, will send message to PCP to advise. Reevaluation #3: 10/14/23 14:55 received phone call from patient via funeral counselor. Patient stating that oxycodone prescription was sent to incorrect pharmacy. Upon review, appears prescription was rejected. Initial order canceled. New prescription for 4 tabs of oxycodone 5 mg sent to [facility] in [place]. * Telephone Encounter - Yareli Billingsley - 10/14/2023 12:41 PM EST TC from Pt calling to inform went to [facility] ER yesterday 10/13/23 . Informs was prescribed medication but was sent to the incorrect pharmacy and pt does not have transportation. Pt does not know name ofmed . Please call pt to clarify . documented in this encounter Plan of Treatment Upcoming Encounters Date Type Department Care Team (Late st Contact Info) Description 01/21/2025 11:15 AM EDT Office Visit [facility] OPTOMETRY [address] [place] [address] Parminder Britt, OD [address] [place] [address] 04/06/2025 3:15 PM EDT Office Visit [facility] MEDICINE [address] [place] [address] Ligia Becerra MD [address] [place] [address] documented as of this encounter Visit Diagnoses Not on filedocumented in this encounter Additional Health Concerns Assessment Noted Time PHQ-9 Depression Total Score: 18 023 3:56 PM EDT documented as of this encounter Care Teams Waste Hand Relationship Specialty Start Date End Date Ligia Becerra MD [address] [place] [address] PCP - General Family Medicine 07/22/22 Jair Pro MD [address] [place] [address] Urology 07/24/24 Tim Herrera [address] [place] [address] Neurosurgery 07/24/24 Trung Slade MD [address] 3rd [place] [address] Gastroenterology 10/19/24 documented as of this encounter
--- OUTSIDE RECORDS SUMMARY | 2024-12-21 06:11 | XMS_ITS | Encounter Summary ---
Author Organization [employer] Address [address] [facility] 7t [place] [address] Care Team Providers Care Pattern Layout Worker Name Role Phone Ligia Becerra MD Primary Care Provider +[phone]- [phone] Jair Pro MD Unavailable [phone] Tim Herrera Unavailable [phone] Trung Sldae MD Unavailable [phone] Encounter Details Date Type Department Care Team (Late st Contact Info) Description 02/04/2023 Abstract [facility] [address] [place] [address] Ligia Becerra MD 230 [place], [place] [phone] Social History Tobacco Use Types Packs/Day Years [...] Description 01/21/2025 11:15 AM EDT Office Visit [facility] OPTOMETRY [address] [place] [address] Britt Zurita, OD [address] [place] [address] 04/06/2025 3:15 PM EDT Office Visit [facility] 230 [place] [address] Ligia Becerra MD 230 [place] [address] documented as of this encounter Visit Diagnoses Not on filedocumented in this encounter Care Teams Pattern Layout Worker Relationship Specialty Start Date End Date Ligia Becerra MD [address] [place] [address] PCP - General Family Medicine 07/22/22 Jair Pro MD [address] [place] [address] Urology 07/24/24 Tim Herrera [address] [place] [address] Neurosurgery 07/24/24 Trung Slade MD [address] 3rd [place] [address] Gastroenterology 10/19/24 documented as of this encounter
--- OUTSIDE RECORDS SUMMARY | 2024-12-21 06:11 | XMS_ITS | Encounter Summary ---
Author Organization [employer] Address 75 [facility] 7t [place] [address] Care Team Providers Care Biomechanical Engineer Name Role Phone Ligia Becerra MD Primary Care Provider [phone]- [phone] Jair Pro MD Unavailable Tim Herrera Unavailable [phone] Trung Slade MD Unavailable [phone] Reason for Visit * Reason Onset Date Comments Nurse Triage 10/08/2023 Encounter Details Date Type Department Care Team (Late st Contact Info) Description 10/08/2023 Telephone [facility] 230 [place] [address] Ligia Becerra MD [address] [place] [address] Nurse Triage Social History Tobacco Use Types [...] PM EST Call to Ashley Angeles via [employer] video interpreter deaf. Pt reports having back pain that is [...] 11:15 AM EDT Office Visit [facility] OPTOMETRY [address] [place] [address] Britt Zurita, OD [address] [place] [address] 04/06/2025 3:15 PM EDT Office Visit [facility] 230 [place] [address] Ligia Becerra MD 230 [place] [address] documented as of this encounter Visit Diagnoses Not on filedocumented in this encounter Additional Health Concerns Assessment Noted Time PHQ-9 Depression Total Score: 18 023 3:56 PM EDT documented as of this encounter Care Teams Biomechanical Engineer Relationship Specialty Start Date End Date Ligia Becerra MD [address] [place] [address] PCP - General Family Medicine 07/22/22 Jair Pro MD [address] [place] [address] Urology 07/24/24 Tim Herrera [address] [place] [address] Neurosurgery 07/24/24 Trung Slade MD [address] 3rd [place] [address] Gastroenterology 10/19/24 documented as of this encounter
--- OUTSIDE RECORDS SUMMARY | 2024-12-21 06:11 | XMS_ITS | Encounter Summary ---
Author Organization [employer] Address 75 [facility] 7t [place] [address] Care Team Providers Care Surgical Technologist Name Role Phone Ligia Becerra MD Primary Care Provider [phone]- [phone] Jair Pro MD Unavailable Tim Herrera Unavailable Trung Slade MD Unavailable [phone] Encounter Details Date Type Department Care Team (Late st Contact Info) Description 03/18/2023 Telephone [facility] MEDICINE [address] [place] [address] Ligia Becerra MD [address] [place] [address] Social History Tobacco Use Types Packs/Day Years [...] from pt states he spoke with a sales service route manager and was given the number [phone]. Agriculture Intern did not seeany documentation. Please contact pt at [phone] documented in this encounter Plan of Treatment Upcoming Encounters Date Type Department Care Team (Late st Contact Info) Description 01/21/2025 11:15 AM EDT Office Visit [facility] OPTOMETRY [address] [place] [address] Britt Zurita, OD [address] [place] [address] 04/06/2025 3:15 PM EDT Office Visit [facility] MEDICINE 230 [place] [address] Ligia Becerra MD [address] [place] [address] documented as of this encounter Visit Diagnoses Not on filedocumented in this encounter Care Teams Surgical Technologist Relationship Specialty Start Date End Date Ligia Becerra MD [address] [place] [address] PCP - General Family Medicine 07/22/22 Jair Pro MD [address] [place] [address] Urology 07/24/24 Tim Herrera [address] [place] [address] Neurosurgery 07/24/24 Trung Slade MD [address] 3rd [place] [address] Gastroenterology 10/19/24 documented as of this encounter
--- OUTSIDE RECORDS SUMMARY | 2024-12-21 06:11 | XMS_ITS | Continuity of Care Document ---
Author Organization [facility] Address [address] [place] [address] Phone Care Team Providers Care Chief Wheelage Clerk Name Role Phone Unavailable Unavailable Unavailable Advance Directives Directive Yes / No Effective Date File Name No Information Encounters Encounter Description Practice Location Reason(s) For Visit Diagnoses Date Provider Providers Copied on Encounter [facility], [address] [place] [address], [address], [place] tel:[phone] [facility] Health NO SHOW (chief complaint) No Information 9 No Information Family History Family Member Type Diagnosis Age At Onset No Information Payers Payer name Insurance type Covered democrat ID Authoriza tion(s) No Information Social History Type Description Quantity Date Captured Comments Sex Male Smoking Status No Information Sexual Orientation Lesbian, dia or homosexual Gender Identity Ogeeyt-gz-Aodw (FTM) /Transgender Male/Trans Man Chief Complaint And [...]
--- OUTSIDE RECORDS SUMMARY | 2024-12-21 06:11 | XMS_ITS | Encounter Summary ---
Author Organization [employer] Address [address] [facility] [address] 7t [place] [address] Care Team Providers Care Dial Buffer Name Role Phone Ligia Becerra MD Primary Care Provider [phone]- [phone] Jair Pro MD Unavailable [phone] Tim Herrera Unavailable Trung Slade MD Unavailable [phone] Reason for Visit * Reason Comments Med Refill Encounter Details Date Type Department Care Team (Late st Contact Info) Description 10/18/2024 Refill [facility] [address] [place], [place] [phone] Name, MD Joselo [address] [place] [address] Social History Tobacco Use Types Packs/Day Years [...] 11:15 AM EDT Office Visit [facility] [address] [place] [address] Britt Zurita, OD [address] [place] [address] 04/06/2025 3:15 PM EDT Office Visit [facility] [address] [place] [address] Ligia Becerra MD [address] [place] [address] documented as of this encounter Visit Diagnoses Not on filedocumented in this encounter Additional Health Concerns Assessment Noted Time PHQ-9 Depression Total Score: 3 03/18/20 24 11:59 AM EDT documented as of this encounter Care Teams Dial Buffer Relationship Specialty Start Date End Date Ligia Becerra MD [address] [place] [address] PCP - General Family Medicine 07/22/22 Jair Pro MD [address] [place] [address] Urology 07/24/24 Tim Herrera [address] [place] [address] Neurosurgery 07/24/24 Trung Slade MD [address] 3rd [place] [address] Gastroenterology 10/19/24 documented as of this encounter
--- OUTSIDE RECORDS SUMMARY | 2024-12-21 06:13 | XMS_ITS | Encounter Summary ---
Author Organization [employer] Address 75 [facility] 7t [place] [address] Care Team Providers Care Pega Developer Name Role Phone Ligia Becerra MD Primary Care Provider [phone]- [phone] Jair Pro MD Unavailable Tim Herrera Unavailable Trung Slade MD Unavailable [phone] Reason for Visit * Reason Onset Date Comments Call back request 08/14/2023 Encounter Details Date Type Department Care Team (Late st Contact Info) Description 08/14/2023 Telephone [facility]INE 230 [place], [place] [phone] Ligia Becerra MD 230 [place] [address] Call back request Social History Tobacco Use [...] 3:00 PM EST Tc from pt via [facility] interpretor #[id number] requesting call back wanting to speak with provider. Pt didn't want to information regarding the call, she stated pcp knows what's going on. Please contact pt at [phone]. documented in this encounter Plan of Treatment Upcoming Encounters Date Type Department Care Team (Late st Contact Info) Description 01/21/2025 11:15 AM EDT Office Visit [facility] OPTOMETRY [address] [place] [address] Britt Zurita, RICKY 267 [place] [address] 04/06/2025 3:15 PM EDT Office Visit [facility] [address] [place] [address] Ligia Becerra MD 230 [place] [address] documented as of this encounter Visit Diagnoses Not on filedocumented in this encounter Additional Health Concerns Assessment Noted Time PHQ-9 Depression Total Score: 18 023 3:56 PM EDT documented as of this encounter Care Teams Pega Developer Relationship Specialty Start Date End Date Ligia Becerra MD 230 [place] [address] PCP - General Family Medicine 07/22/22 Jair Pro MD [address] [place] [address] Urology 07/24/24 Tim Herrera [address] [place] [address] Neurosurgery 07/24/24 Trung Slade MD [address] 3rd [place] [address] Gastroenterology 10/19/24 documented as of this encounter
--- OUTSIDE RECORDS SUMMARY | 2024-12-21 06:13 | XMS_ITS | Encounter Summary ---
Author Organization [employer] Address [address] [facility] [address] 7t [place] [address] Care Team Providers Care Inspector Screen Printing Name Role Phone Ligia Becerra MD Primary Care Provider [phone]- [phone] Jair Pro MD Unavailable [phone] Tim Herrera Unavailable [phone] Trung Slade MD Unavailable [phone] Encounter Details Date Type Department Care Team (Latest Contact Info) Description 12/17/2024 Travel Social History Tobacco Use Types Packs/Day Years [...] Description 01/21/2025 11:15 AM EDT Office Visit [facility] OPTOMETRY [address] [place] [address] Tarka, Britt, OD 267 [place] [address] 04/06/2025 3:15 PM EDT Office Visit [facility] 230 [place] [address] Ligia Becerra MD [address] [place] [address] documented as of this encounter Visit Diagnoses Not on filedocumented in this encounter Additional Health Concerns Assessment Noted Time PHQ-9 Depression Total Score: 3 03/18/20 24 11:59 AM EDT documented as of this encounter Care Teams Inspector Screen Printing Relationship Specialty Start Date End Date Ligia Becerra MD 230 [place] [address] PCP - General Family Medicine 07/22/22 Jair Pro MD [address] [place] [address] Urology 07/24/24 Tim Herrera [address] [place] [address] Neurosurgery 07/24/24 Trung Slade MD [address] 3rd [place] [address] Gastroenterology 10/19/24 documented as of this encounter
--- OUTSIDE RECORDS SUMMARY | 2024-12-21 06:13 | XMS_ITS | Encounter Summary ---
Author Organization [employer] Address 75 [facility] 7t [place] [address] Care Team Providers Care Armature Straightener Name Role Phone Ligia Becerra MD Primary Care Provider [phone]- [phone] Jair Pro MD Unavailable Tim Herrera Unavailable Trung Slade MD Unavailable [phone] Reason for Visit * Reason Onset Date Comments Med Refill 07/18/2023 Encounter Details Date Type Department Care Team (Late st Contact Info) Description 07/18/2023 Telephone [facility] 230 [place] [address] Ligia Becerra MD [address] [place] [address] Med Refill Social History Tobacco Use Types [...] Strength) 500 MG tablet Please sent to [facility] documented in this encounter Plan of Treatment Upcoming Encounters Date Type Department Care Team (Late st Contact Info) Description 01/21/2025 11:15 AM EDT Office Visit [facility] OPTOMETRY [address] [place] [address] Britt Zurita OD 267 [place] [address] 04/06/2025 3:15 PM EDT Office Visit [facility] MED[facility]INE [address] [place] [address] Ligia Becerra MD [address] [place] [address] documented as of this encounter Visit Diagnoses Not on filedocumented in this encounter Additional Health Concerns Assessment Noted Time PHQ-9 Depression Total Score: 18 023 3:56 PM EDT documented as of this encounter Care Teams Armature Straightener Relationship Specialty Start Date End Date Ligia Becerra MD [address] [place] [address] PCP - General Family Medicine 07/22/22 Jair Pro MD [address] [place] [address] Urology 07/24/24 Tim Herrera [address] [place] [address] Neurosurgery 07/24/24 Trung Slade MD [address] 3rd [place] [address] Gastroenterology 10/19/24 documented as of this encounter
--- OUTSIDE RECORDS SUMMARY | 2024-12-21 06:13 | XMS_ITS | Encounter Summary ---
Author Organization [employer] Address 75 [facility] 7t [place] [address] Care Team Providers Care English Language Learner Tutor Name Role Phone Ligia Becerra MD Primary Care Provider [phone]- [phone] Jair Pro MD Unavailable Tim Herrera Unavailable Trung Slade MD Unavailable [phone] Reason for Visit * Reason Onset Date Comments Requesting A Phone Call 09/18/2022 Encounter Details Date Type Department Care Team (Late st Contact Info) Description 09/18/2022 Telephone [facility] MEDICINE [address] [place] [phone] Ligia Becerra MD 230 [place], [place] [phone] Requesting A Phone Call Social History Tobacco [...] specific in why. Please contact pt at [phone] documented in this encounter Plan of Treatment Upcoming Encounters Date Type Department Care Team (Late st Contact Info) Description 01/21/2025 11:15 AM EDT Office Visit [facility] OPTOMETRY [address] [place] [address] TarBritt burks, OD [address] [place] [address] 04/06/2025 3:15 PM EDT Office Visit [facility] MEDICINE 230 [place] [address] Ligia Becerra MD [address] [place] [address] documented as of this encounter Visit Diagnoses Not on filedocumented in this encounter Care Teams English Language Learner Tutor Relationship Specialty Start Date End Date Ligia Becerra MD [address] [place] [address] PCP - General Family Medicine 07/22/22 Jair Pro MD [address] [place] [address] Urology 07/24/24 Tim Herrera [address] [place] [address] Neurosurgery 07/24/24 Trung Slade MD [address] 3rd [place] [address] Gastroenterology 10/19/24 documented as of this encounter
--- OUTSIDE RECORDS SUMMARY | 2024-12-21 06:13 | XMS_ITS | Encounter Summary ---
Author Organization [employer] Address 75 [facility] 7t [place] [address] Care Team Providers Care Journeyman Level Acoustic Analyst Name Role Phone Ligia Becerra MD Primary Care Provider [phone]- [phone] Jair Pro MD Unavailable [phone] Tim Herrera Unavailable Trung Slade MD Unavailable [phone] Encounter Details Date Type Department Care Team (Late Contact Info) Description 08/13/2022 Orders Only [facility] 230 [place] [address] Ligia Becerra MD 230 [place] [address] Social History Tobacco Use Types Packs/Day Years [...] Description 01/21/2025 11:15 AM EDT Office Visit [facility] OPTOMETRY [address] [place] [address] Britt Zurita, OD 267 [place] [address] 04/06/2025 3:15 PM EDT Office Visit [facility] 230 [place] [address] Ligia Becerra MD 230 [place] [address] documented as of this encounter Visit Diagnoses Not on filedocumented in this encounter Care Teams Journeyman Level Acoustic Analyst Relationship Specialty Start Date End Date Ligia Becerra MD 230 [place] [address] PCP - General Family Medicine 07/22/22 Jair Pro MD [address] [place] [address] Urology 07/24/24 Tim Herrera [address] [place] [address] Neurosurgery 07/24/24 Trung Slade MD [address] 3rd [place] [address] Gastroenterology 10/19/24 documented as of this encounter
--- OUTSIDE RECORDS SUMMARY | 2024-12-21 06:13 | XMS_ITS | Encounter Summary ---
Author Organization [employer] Address [address] [facility] 7t [place] [address] Care Team Providers Care Plant And Instrument Engineer Name Role Phone Ligia Becerra MD Primary Care Provider [phone] Jair Pro MD Unavailable [phone] Tim Herrera Unavailable [phone] Trung Slade MD Unavailable [phone] Reason for Visit * Reason Onset Date Comments Medication Question 12/17/2024 Encounter Details Date Type Department Care Team (Late st Contact Info) Description 12/17/2024 Telephone [facility] MEDICINE [address] [place] [address] Ligia Becerra MD [address] [place] [address] Medication Question Social History Tobacco Use Types Packs/Day Years [...] Telephone Encounter - Barbara White RN - 12/20/2024 10:50 AM EDT TC placed to pt with an rotor coil taper in regards to the request for Ibuprofen and Aspirin medication. The pt states that this medication is needed for an upcoming L4-L5 spinal decompression procedure that is scheduled for 01/06/[address] Herrera. RN called Dr. Hall's office at [facility] to confirm the instructions for the pt upcoming spinal procedure. RN spoke with the master scheduler who stated that the pt is tentatively scheduled for January 06 and pre operative instructions have been given to the pt. The pt is to STOP the already prescribed Motrin and Aspirin 7 days prior to the procedure and will be put under general anesthesia during the surgery. Dr. Hall's office will manage the pt pain medications up to three months following the surgery. The office will also assist the pt in any post surgical questions or concerns. RN then proceeded to call the pt with an rotor coil taper to inform of the information from Dr. Hall's office. Pt was agreeable and will now follow up with that office in regards to concerns with the spinal decompression procedure. * Telephone Encounter - Chuck Colón - 12/20/2024 9:54 AM EDT PT returning call * Telephone Encounter - Barbara White RN - 12/20/2024 9:17 AM EDT TC placed to pt with an rotor coil taper and a VM was left requesting a call back to the office * Telephone Encounter - Chuck Colón - 12/17/2024 4:41 PM EDT TC from pt requesting Ibuprofen 600 mg and Aspiri ( not on active med list ) to be sent to [facility] documented in this encounter Plan of Treatment Upcoming Encounters Date Type Department Care Team (Late st Contact Info) Description 01/21/2025 11:15 AM EDT Office Visit [facility] OPTOMETRY [address] [place] [address] Britt Zurita OD [address] [place] [address] 04/06/2025 3:15 PM EDT Office Visit [facility] MEDICINE [address] [place] [address] Ligia Becerra MD [address] [place] [address] documented as of this encounter Visit Diagnoses Not on filedocumented in this encounter Additional Health Concerns Assessment Noted Time PHQ-9 Depression Total Score: 3 03/18/20 24 11:59 AM EDT documented as of this encounter Care Teams Plant And Instrument Engineer Relationship Specialty Start Date End Date Ligia Becerra MD [address] [place] [address] PCP - General Family Medicine 07/22/22 Jair Pro MD [address] [place] [address] Urology 07/24/24 Tim Herrera [address] [place] [address] Neurosurgery 07/24/24 Trung Slade MD [address] 3rd [place] [address] Gastroenterology 10/19/24 documented as of this encounter
--- OUTSIDE RECORDS SUMMARY | 2024-12-21 06:13 | XMS_ITS | Encounter Summary ---
Author Organization [employer] Address [address] [facility] 7t [place] [address] Care Team Providers Care Concreter Name Role Phone Ligia Becerra MD Primary Care Provider [phone] Jair Pro MD Unavailable Tim Herrera Unavailable [phone] Trung Slade MD Unavailable [phone] Reason for Visit * Reason Onset Date Comments March Recalls 12/17/2024 Encounter Details Date Type Department Care Team (Late st Contact Info) Description 12/17/2024 Telephone [facility] MEDICINE [address] [place] [address] Ligia Becerra MD [address] [place] [address] March Recalls Social History Tobacco Use Types Packs/Day Years [...] encounter Miscellaneous Notes * Telephone Encounter - Concepción Perera MA - 12/17/2024 3:22 PM EDT Appointment reminder sent via mail for Annual clearence - [employer] Member. documented in this encounter Plan of Treatment Upcoming Encounters Date Type Department Care Team (Late st Contact Info) Description 01/21/2025 11:15 AM EDT Office Visit [facility] OPTOMETRY [address] [place] [address] Britt Zurita OD [address] [place] [address] 04/06/2025 3:15 PM EDT Office Visit [facility] MEDICINE [address] [place] [address] Ligia Becerra MD [address] [place] [address] documented as of this encounter Visit Diagnoses Not on filedocumented in this encounter Additional Health Concerns Assessment Noted Time PHQ-9 Depression Total Score: 3 03/18/20 24 11:59 AM EDT documented as of this encounter Care Teams Concreter Relationship Specialty Start Date End Date Ligia Becerra MD [address] [place] [address] PCP - General Family Medicine 07/22/22 Jair Pro MD [address] [place] [address] Urology 07/24/24 Tim Herrera [address] [place] [address] Neurosurgery 07/24/24 Trung Slade MD [address] 3rd [place] [address] Gastroenterology 10/19/24 documented as of this encounter
--- OUTSIDE RECORDS SUMMARY | 2024-12-21 06:13 | XMS_ITS | Encounter Summary ---
Author Organization [employer] Address [address] [facility] 7t [place] [address] Care Team Providers Care Taper Printed Circuit Layout Name Role Phone Ligia Becerra MD Primary Care Provider [phone] Jair Pro MD Unavailable Tim Herrera Unavailable Trung Slade MD Unavailable [phone] Reason for Visit * Reason Onset Date Comments Durable Medical Equipment 06/02/2024 Encounter Details Date Type Department Care Team (Late st Contact Info) Description 06/02/2024 Telephone [facility] MEDICINE [address] [place] [address] Ligia Becerra MD [address] [place] [address] Durable Medical Equipment Social History Tobacco Use [...] any questions you can contact pt at [phone]. documented in this encounter Plan of Treatment Upcoming Encounters Date Type Department Care Team (Late st Contact Info) Description 01/21/2025 11:15 AM EDT Office Visit [facility] OPTOMETRY [address] [place] [address] Britt Zurita, OD [address] [place] [address] 04/06/2025 3:15 PM EDT Office Visit [facility] MEDICINE [address] [place] [address] Ligia Becerra MD [address] [place] [address] documented as of this encounter Visit Diagnoses Not on filedocumented in this encounter Additional Health Concerns Assessment Noted Time PHQ-9 Depression Total Score: 3 03/18/20 24 11:59 AM EDT documented as of this encounter Care Teams Taper Printed Circuit Layout Relationship Specialty Start Date End Date Ligia Becerra MD [address] [place] [address] PCP - General Family Medicine 07/22/22 Jair Pro MD [address] [place] [address] Urology 07/24/24 Tim Herrera [address] [place] [address] Neurosurgery 07/24/24 Trung Slade MD [address] 3rd [place] [address] Gastroenterology 10/19/24 documented as of this encounter
--- OUTSIDE RECORDS SUMMARY | 2024-12-21 06:13 | XMS_ITS | Encounter Summary ---
Author Organization [employer] Address 75 [facility] 7t [place] [address] Care Team Providers Care Floater Operator Name Role Phone Ligia Becerra MD Primary Care Provider [phone] Jiar Pro MD Unavailable Tim Herrera Unavailable [phone] Trung Slade MD Unavailable [phone] Reason for Visit * Reason Onset Date Comments Created in error 04/09/2024 Encounter Details Date Type Department Care Team (Late st Contact Info) Description 04/09/2024 Telephone [facility] MEDICINE [address] [place] [address] Ligia Becerra MD [address] [place] [address] Created in error Social History Tobacco Use [...] the past 12 months, has t he [employer] gas, oil or water company threatened to [...] Description 01/21/2025 11:15 AM EDT Office Visit [facility] OPTOMETRY [address] [place] [address] Britt Zurita, OD [address] [place] [address] 04/06/2025 3:15 PM EDT Office Visit [facility] MEDICINE [address] [place] [address] Ligia Becerra MD [address] [place] [address] documented as of this encounter Visit Diagnoses Not on filedocumented in this encounter Additional Health Concerns Assessment Noted Time PHQ-9 Depression Total Score: 3 03/18/20 24 11:59 AM EDT documented as of this encounter Care Teams Floater Operator Relationship Specialty Start Date End Date Ligia Becerra MD [address] [place] [address] PCP - General Family Medicine 07/22/22 Jair Pro MD [address] [place] [address] Urology 07/24/24 Tim Herrera [address] [place] [address] Neurosurgery 07/24/24 Trung Slade MD [address]rd [place] [address] Gastroenterology 10/19/24 documented as of this encounter
--- OUTSIDE RECORDS SUMMARY | 2024-12-21 06:13 | XMS_ITS | Encounter Summary ---
Author Organization [employer] Address [address] [facility] 7t [place] [address] Care Team Providers Care Robotic Welding Operator Name Role Phone Ligia Becerra MD Primary Care Provider [phone] Jair Pro MD Unavailable Tim Herrera Unavailable Trung Slade MD Unavailable [phone] Encounter Details Date Type Department Care Team (Latest Contact Info) Description 06/19/2022 Abstract [facility] CONVERSIONS Dental, Provider, DDS Social History [...] 11:15 AM EDT Office Visit [facility] OPTOMETRY [address] [place], [place] [phone] Britt Zurita OD [address] [place], [place] [address] 04/06/2025 3:15 PM EDT Office Visit [facility] MEDICINE [address] [place] [phone] Ligia Becerra MD [address] [place] [address] documented as of this encounter Visit Diagnoses Not on filedocumented in this encounter Care Teams Robotic Welding Operator Relationship Specialty Start Date End Date Ligia Becerra MD [address] [place] [address] PCP - General Family Medicine 07/22/22 Jair Pro MD [address] [place] [address] Urology 07/24/24 Tim Herrera [address] [place] [address] Neurosurgery 07/24/24 Trung Slade MD [address] 3rd [place] [address] Gastroenterology 10/19/24 documented as of this encounter
--- OUTSIDE RECORDS SUMMARY | 2024-12-21 06:13 | XMS_ITS | Encounter Summary ---
Author Organization [employer] Address [address] [place] [address] 7t [place] [address] Care Team Providers Care Animal Rides Manager Name Role Phone Ligia Becerra MD Primary Care Provider [phone] Jair Pro MD Unavailable [phone] Tim Herrera Unavailable Trung Slade MD Unavailable [phone] Reason for Visit * Reason Onset Date Comments returnin call back 09/17/2022 Encounter Details Date Type Department Care Team (Late st Contact Info) Description 09/17/2022 Telephone [facility] MEDICINE [address] [place] [address] Ligia Becerra MD [address] [place] [address] returnin call back Social History Tobacco Use [...] EST Tc from pt returning phone call, narrative writer see's that provider would like to schedule a 30 min appt inperson with pt. Please contact pt at [phone] documented in this encounter Plan of Treatment Upcoming Encounters Date Type Department Care Team (Late st Contact Info) Description 01/21/2025 11:15 AM EDT Office Visit [facility] OPTOMETRY [address] [place] [address] Britt Zurita, OD [address] [place] [address] 04/06/2025 3:15 PM EDT Office Visit [facility] MEDICINE [address] [place] [address] Ligia Becerra MD [address] [place] [address] documented as of this encounter Visit Diagnoses Not on filedocumented in this encounter Care Teams Animal Rides Manager Relationship Specialty Start Date End Date Ligia Becerra MD [address] [place] [address] PCP - General Family Medicine 07/22/22 Jair Pro MD [address] [place] [address] Urology 07/24/24 Tim Herrera [address] [place] [address] Neurosurgery 07/24/24 Trung Slade MD [address] Floor [place], [place] [address] Gastroenterology 10/19/24 documented as of this encounter
--- OUTSIDE RECORDS SUMMARY | 2024-12-21 06:13 | XMS_ITS | Encounter Summary ---
Author Organization [employer] Address [address] [facility] 7t [place] [address] Care Team Providers Care Test Fixture Assembler Name Role Phone Ligia Becerra MD Primary Care Provider [phone]- [phone] Jair Pro MD Unavailable Tim Herrera Unavailable Turng Slade MD Unavailable [phone] Encounter Details Date Type Department Care Team (Late st Contact Info) Description 11/01/2022 Orders Only [facility] MEDICINE [address] [place], [place] [phone] Ligia Becerra MD [address] [place], [place] [phone] Bilateral deafness (Primary Dx) Social History Tobacco [...] EDT Office Visit [facility] OPTOMETRY [address] [place] [address] Britt Zurita, OD [address] [place] [address] 04/06/2025 3:15 PM EDT Office Visit [facility] MEDICINE [address] [place] [address] Ligia Becerra MD [address] [place] [address] documented as of this encounter Visit Diagnoses Diagnosis Bilateral deafness- Primary Unspecified hearing loss documented in this encounter Care Teams Test Fixture Assembler Relationship Specialty Start Date End Date Ligia Becerra MD [address] [place] [address] PCP - General Family Medicine 07/22/22 Jair Pro MD [address] [place] [address] Urology 07/24/24 Tim Herrera [address] [place] [address] Neurosurgery 07/24/24 Trung Slade MD [address] 3rd [place] [address] Gastroenterology 10/19/24 documented as of this encounter
--- OUTSIDE RECORDS SUMMARY | 2024-12-21 06:13 | XMS_ITS | Clinical Summary ---
Author Organization [employer] Address [address] [facility] 7t [place] [address] Care Team Providers Care Carbon Capture Power Plant Operator Name Role Phone Ligia Becerra MD Primary Care Provider [phone] Jair Pro MD Unavailable [phone] Tim Nolen Unavailable [phone] Turng Slade MD Unavailable [phone] Allergies No known active allergies Medications * [...] migh t be different from the original. [facility] Director Custom: Yajaira, member services number [phone], provider services line, , option 4 Engineering Writer Agency: [facility] Problem Noted Date Diagnosed Date Vaginal discharge [...] Patient will benefit from follow through with [facility] services and recommendations as well as continued calls to the [facility]. At this time Jacob Angeles meets criteria for Visit Diagnoses: Problem List Items Addressed This Visit Other Adjustment disorder with mixed anxiety and depressed mood Personality disorder (CMS/HCC) Patient ready to address current needs Yes Strengths-Ashley is able to advocate for her wants and needs. She is in the contemplation stage of change. PLAN: 1. Follow up with [facility]: Recommended for follow-up: As needed 2. Patient goal is to follow through with N services and recommendations 3. Behavioral Recommendations a. OP therapy with N b. Calling the [facility] daily Assessment & Plan (04/15/2023 1:06 PM [...] Patient will benefit from crisis evaluation with [facility] and [place] [facility]. ?? At this time Jacob Angeles meets criteria for Visit Diagnoses: Problem List Items Addressed This Visit ? Other ?? Adjustment disorder with mixed anxiety and depressed mood ?? Patient ready to address current needs Yes ?? Strengths- Ashley is able to advocate for her wants and needs. She is in the contemplation stage of change. ?? PLAN: 1. Follow up with [facility]: Recommended for follow-up: As needed 2. Patient goal is to engage in crisis evaluation, OP therapy, psychiatry 3. Behavioral Recommendations a. [facility] b. Call [facility] daily at 9:00 AM for intake Assessment [...] of change. PLAN: 1. Follow up with [facility]: Recommended for follow-up: As needed 2. Patient [...] due after 03/18/25 -eye care facilitated by [facility] -dental home is [facility] -Healthcare proxy paperwork given 08/22/23, filed 03/18/24 Assessment & Plan (03/18/2024 11:39 AM EDT): -next PE due after 03/18/25 -eye care facilitated by [facility] -dental home is [facility] -Healthcare proxy paperwork given 08/22/23, filed [...] GI 09/17/21. I reached out to her archivist nonprofit foundation [employer] to assist her in following [...] PM EST): I will be calling case management rn to discuss Pts option. Pt is interested [...] when offering services. -Team meeting pt and insurance sales representative from safety, behavior health, case managment, viability and myself on 05/23/2023 done to reinforce which services to use when seeking assistance and setting up behavior expatiation when in the clinic. -[facility] ([facility]) OIL FURNACE INSTALLER [phone] Assessment & Plan (11/19/2023 4:15 PM EDT): [...] when offering services. -Team meeting pt and insurance sales representative from safety, behavior health, case managment, viability and myself on 05/23/2023 done to reinforce which services to use when seeking assistance and setting up behavior expatiation when in the clinic. -[facility] ([facility]) OIL FURNACE INSTALLER [phone] Assessment & Plan (08/22/2023 9:06 AM EST): [...] when offering services. -Team meeting pt and insurance sales representative from safety, behavior health, case managment, viability and myself on 05/23/2023 done to reinforce which services to use when seeking assistance and setting up behavior expatiation when in the clinic. -[facility] ([facility]) OIL FURNACE INSTALLER [phone] Assessment & Plan (08/13/2023 9:50 AM EST): [...] when offering services. -Team meeting pt and insurance sales representative from safety, behavior health, case managment, viability and myself on 05/23/2023 done to reinforce which services to use when seeking assistance and setting up behavior expatiation when in the clinic. -[facility] [facility] ([facility]) OIL FURNACE INSTALLER [phone] Assessment & Plan (05/23/2023 1:14 PM EDT): [...] when offering services. -Team meeting pt and insurance sales representative from safety, behavior health, case managment, viability and myself on 05/23/2023 done to reinforce which services to use when seeking assistance and setting up behavior expatiation when in the clinic. -[facility] ([facility]) OIL FURNACE INSTALLER [phone] Assessment & Plan (02/05/2023 11:15 AM EDT): [...] offering services. -Viability with Jose Ramos Jr. OIL FURNACE INSTALLER , text . Assessment & Plan (10/28/2022 [...] prescribed by [facility] but pt did not mushroom picker. -She returned to pain management 06/02/2023 and was referred to neurosurgery -seen by Dr. Tim Nolen MD, PhD , Spine Fellowship Trained Neurosurgeon, Director, [facility] 06/25/2023 -Pt offered a multilevel decompression [...] prescribed by [facility] but pt did not mushroom picker. -She returned to pain management 06/02/2023 and was referred to neurosurgery -seen by Dr. Tim Nolen MD, PhD , Spine Fellowship Trained Neurosurgeon, Director, [facility] 06/25/2023 -Pt offered a multilevel decompression [...] prescribed by [facility] but pt did not mushroom picker. -She returned to pain management 06/02/2023 and was referred to neurosurgery -seen by Dr. Tim Nolen MD, PhD , Spine Fellowship Trained Neurosurgeon, Director, [facility] -Ptoffered a multilevel decompression of the [...] prescribed by [facility] but pt did not mushroom picker. -She returned to pain management 06/02/2023 and was referred to neurosurgery -seen by Dr. Tim Nolen MD, PhD , Spine Fellowship Trained Neurosurgeon, Director, [facility] -Ptoffered a multilevel decompression of the [...] prescribed by [facility] but pt did not mushroom picker. -She returned to pain management 06/02/2023 and was referred to neurosurgery -seen by Dr. Tim Nolen MD, PhD , Spine Fellowship Trained Neurosurgeon, Director, [facility] -Ptoffered a multilevel decompression of the [...] prescribed by [facility] but pt did not mushroom picker. -She returned to pain management 06/02/2023 and was referred to neurosurgery -seen by Dr. Tim Nolen MD, PhD , Spine Fellowship Trained Neurosurgeon, Director, [facility] -Ptoffered a multilevel decompression of the [...] prescribed by [facility] but pt did not mushroom picker. -She returned to pain management 06/02/2023 and was referred to neurosurgery -seen by Dr. Tim Nolen MD, PhD , Spine Fellowship Trained Neurosurgeon, Director, [facility] -Ptoffered a multilevel decompression of the [...] prescribed by [facility] but pt did not mushroom picker. -She returned to pain management 06/02/2023 and was referred to neurosurgery -seen by Dr. Tim Nolen MD, PhD , Spine Fellowship Trained Neurosurgeon, Director, [facility] -Ptoffered a multilevel decompression of the [...] proscribed cyclobenzaprine. I reached out to her archivist nonprofit foundation [employer] to assist her in following [...] 12/30/2014 Overview (08/13/2023): Audiology appointment 03/02/2023. -Viability insurance sales representative [facility] ([facility]) OIL FURNACE INSTALLER [phone] Assessment & Plan (05/19/2024 3:18 PM EDT): Audiology appointment 03/02/2023. -Viability insurance sales representative [facility] ([facility]) OIL FURNACE INSTALLER [phone] Assessment & Plan (03/18/2024 11:35 AM EDT): Audiology appointment 03/02/2023. -Viability insurance sales representative [facility] ([facility]) OIL FURNACE INSTALLER [phone] Assessment & Plan (11/19/2023 4:14 PM EDT): Audiology appointment 03/02/2023. -Viability insurance sales representative [facility] ([facility]) OIL FURNACE INSTALLER [phone] Assessment & Plan (08/22/2023 9:06 AM EST): Audiology appointment 03/02/2023. -Vi[employer] insurance sales representative [facility] ([facility]) OIL FURNACE INSTALLER [phone] Assessment & Plan (08/13/2023 9:48 AM EST): Audiology appointment 03/02/2023. -Vi[employer] insurance sales representative [facility] ([facility]) OIL FURNACE INSTALLER [phone] Assessment & Plan (05/23/2023 1:16 PM EDT): Audiology appointment 03/02/2023. -Viability insurance sales representative [facility] ([facility]) OIL FURNACE INSTALLER [phone] Assessment & Plan (02/05/2023 11:14 AM EDT): Audiology appointment 03/02/2023. Viability with Jose Ramos Jr. OIL FURNACE INSTALLER , text . Assessment & Plan (12/12/2022 [...] for appointment. I have asked her [employer] archivist nonprofit foundation to assist her. -CT 12/2021 Gallbladder surgically [...] for appointment. I have asked her [employer] archivist nonprofit foundation to assist her. -CT 12/2021 Gallbladder surgically [...] for appointment. I have asked her [employer] archivist nonprofit foundation to assist her. -CT 12/2021 Gallbladder surgically [...] for appointment. I have asked her [employer] archivist nonprofit foundation to assist her. -CT 12/2021 Gallbladder surgically [...] for appointment. I have asked her [employer] archivist nonprofit foundation to assist her. -CT 12/2021 Gallbladder surgically [...] for appointment. I have asked her [employer] archivist nonprofit foundation to assist her. -CT 12/2021 Gallbladder surgically [...] for appointment. I have asked her [employer] archivist nonprofit foundation to assist her. -CT 12/2021 Gallbladder surgically [...] for appointment. I have asked her [employer] archivist nonprofit foundation to assist her. -CT 12/2021 COMPARISON: Multiple [...] of change. PLAN: 1. Follow up with [facility]: Recommended for follow-up: 03/20/23 with Larissa Robertson [...] Encounters Date Type Department Care Team Description 12/17/2024 Telephone [facility] [address] [place] [address] Ligia Becerra MD Medication Question 12/17/2024 Telephone [facility] [address] [place] [address] Ligia Becerra MD March Recalls 12/17/2024 Travel 11/30/2024 Telephone [facility] [address] [place] [address] Ligia Becerra MD Appointment Request 11/23/[address] [address] Ligia Becerra MD Insomnia, unspecified type 11/23/[address] [address] Ligia Becerra MD Nurse Triage 11/22/2024 2:20 PM EDT Office Visit [facility] [address] [address] Mary Sage NP Vaginal discharge (Primary Dx); Dysuria; Lesion of skin of scalp; Intertrigo of genital labia 11/09/[address] [address] Ligia Becerra MD Results 10/20/2024 Patient Outreach [address] [address] Ligia Becerra MD Care Coordination (W outreach for [facility] transportation needs-referral completed /) 10/20/[address] [address] Ligia Becerra MD PT1 10/19/2024 3:20 PM EDT [facility] [address] [address] Ligia Becerra MD Chronic bilateral thoracic back pain (Primary Dx); Preop examination; Lower abdominal pain; Benign prostatic hyperplasia with urinary frequency; Insomnia, unspecified type; Colon cancer screening 10/19/[address] [address] Ligia Becerra MD 10/18/2024 [facility] [address] [address] Joselo Esparza MD 10/18/[address] [address] Ligia Becerra MD Nurse Triage 10/06/2024 Telephone [facility] [address] [place] [address] Mayte Duncan 09/23/2024 4:00 PM EST [facility] [address] [place] [address] Yajaira Dior DO Rectal bleeding (Primary Dx); Abdominal bloating; Chronic bilateral low back pain with bilateral sciatica 09/23/2024 Telephone [facility] [address] [place] [address] Ligia Becerra MD Nurse Triage from Last 3 Months Immunizations Name Administration [...] Description 01/21/2025 11:15 AM EDT Office Visit [facility] [address] [place] [address] Santhoshkimmie Britt, OD [address] [place] [address] 04/06/2025 3:15 PM EDT Office Visit [facility] [address] [place] [address] Ligia Becerra MD [address] [place] [address] Health Maintenance Due Date Last Done Comments [...] Specific Antigen 2.68 <0.05 - 4.0 ng/mL [facility] Comment:PSA methodology: Abb giselle Torres i ChemiluminescentMicroparticle Immunoassay (CMIA) Blood Venous blood specimen / Unknown 11/26/2024 4:58 PM EDT 11/26/2024 4:58 PM EDT Ligia Becerra MD LAB BLOOD ORDERABLES Final Result [facility] [address] [place] [phone] * POCT urinalysis dipstick manually resulted [...] ENTER/EDIT OR DERABLES Final Result * (ABNORMAL) Hm Colonoscopy (07/02/2024) Colonoscopy Abnormal( A) Normal Comment:tubular adenoma with Dr. Slade Tres Pollock MD HEALTH MAINTENANCE Final Result * Hepatitis C Antibody with Reflex to HCV, RNA, Quantitative, Real-Time PCR (07/29/2022 11:16 AM EST) Pathologist [facility] Hepatitis C Antibody NON-REACT MOE NON-REACT MOE [facility] [facility] Index 0.06 <1.00 [employer] [place] [facility] Comment: HCV antibody was non-reactive. There is no laboratory evidence of HCV infection. In most cases, no further action is required. However, if recent HCV exposure is suspected, a test for HCV RNA (test code 22342) is suggested. For additional information please refer to http://[employer]faq/RGZ57y4 (This link is being provided for informational/ educational purposes only.) Blood Venous blood specimen / Unknown 07/29/2022 11:16 AM EST 07/29/2022 11:17 AM EST Narrative [facility] - 08/02/2022 10:49 PM EST FASTING:YES FASTING: YES us Ligia Becerra MD LAB BLOOD ORDERABLES Final Result [address], [place] [address] [employer] [place] [facility] [address] [facility], ([address]) [place] [address] * (ABNORMAL) Lipid Panel, Standard (07/29/2022 11:16 AM EST) [facility] Signature Cholesterol, Total 130 <200 mg/dL [employer] [place] [facility] HDL Cholesterol 29(L) > OR = 40 mg/dL [employer] [place] [facility] Triglycerides 80 <150 mg/dL [employer] [facility] LDL Cholesterol 84 mg/dL (calc) [employer] [facility] Comment: Reference range: <100 Desirable range <100 mg/dL for primary prevention; ?? <70 mg/dL for patients with CHD or diabetic patients with > or = 2 CHD risk factors. LDL-C is now calculated using the Barrington-Kadi calculation, which is a validated novel method providing better accuracy than the Friedewald equation in the estimation of LDL-C. Barrington SCHUMACHER et al. EITAN. 2013;310(19): 4001-2357 (http://[employer]/faq/ZKK750) Chol/HDLC Ratio 4.5 <5.0 (calc) [employer] [facility] Non-HDL Cholesterol 101 <130 mg/dL (calc) [employer] [facility] Comment: For patients with diabetes plus 1 major ASCVD risk factor, treating to a non-HDL-C goal of <100 mg/dL (LDL-C of <70 mg/dL) is considered a therapeutic option. Blood Venous blood specimen / Unknown 07/29/2022 11:16 AM EST 07/29/2022 11:17 AM EST Narrative [facility] - 08/02/2022 10:49 PM EST FASTING:YES FASTING: YES us Ligia Becerra MD LAB BLOOD ORDERABLES Final Result [facility] [address] [facility] [facility], [place] [address] [employer] [place] [employer] [facility] [address] [facility], ([address]) [place] [address] from Last 3 Months or Most Recently Relevant to Health Maintenance Insurance [facility] [employer]P OPTIONS (HMO D-SNP) DENTAL [facility] Advance Directives Documents on File Type Date Recorded Patient Staff Midwife/Apprenticeship Director Expl anation Advance Directives and Living Will 03/23/2024 10:24 AM Health Care Proxy Care Teams Carbon Capture Power Plant Operator Relationship Specialty Start Date End Date Mariam, MD Ligia [address] [place] [address] PCP - General Family Medicine 07/22/22 Jair Pro MD [address] [place] [address] Urology 07/24/24 Tim Nolen [address] [place] [address] Neurosurgery 07/24/24 Trung Slade MD [address] 3rd [place] [address] Gastroenterology 10/19/24
--- OUTSIDE RECORDS SUMMARY | 2024-12-21 06:13 | XMS_ITS | Encounter Summary ---
Author Organization [employer] Address [address] [facility] 7t [place] [address] Care Team Providers Care [facility] Name Role Phone Ligia Becerra MD Primary Care Provider [phone] Jair Pro MD Unavailable Tim Herrera Unavailable [phone] Trung Slade MD Unavailable [phone] Reason for Visit * Reason Onset Date Comments Nurse Triage 08/15/2023 Encounter Details Date Type Department Care Team (Late st Contact Info) Description 08/15/[address] [facility] [address] [place] [address] Ligia Becerra MD [address] [place] [address] Nurse Triage Social History Tobacco Use Types [...] Description 01/21/2025 11:15 AM EDT Office Visit [facility] [address] [place] [address] Britt Zurita, OD [address] [place] [address] 04/06/2025 3:15 PM EDT Office Visit [facility] [address] [place], [place] [phone] Ligia Becerra MD [address] [place] [address] documented as of this encounter Visit Diagnoses Not on filedocumented in this encounter Additional Health Concerns Assessment Noted Time PHQ-9 Depression Total Score: 18 023 3:56 PM EDT documented as of this encounter Care Teams Hospital Cna Relationship Specialty Start Date End Date Ligia Becerra MD [address] [place] [address] PCP - General Family Medicine 07/22/22 Jair Pro MD [address] [place] [address] Urology 07/24/24 Tim Herrera [address] [place] [address] Neurosurgery 07/24/24 Trung Slade MD [address] 3rd [place] [address] Gastroenterology 10/19/24 documented as of this encounter
--- OUTSIDE RECORDS SUMMARY | 2024-12-21 06:13 | XMS_ITS | Encounter Summary ---
Author Organization [employer] Address [address] [facility] [address] 7t [place] [address] Care Team Providers Care Broach Trouble Shooter Name Role Phone Ligia Becerra MD Primary Care Provider [phone] Jair Pro MD Unavailable [phone] Tim Herrera Unavailable [phone] Trung Slade MD Unavailable Encounter Details Date Type Department Care Team (Late st Contact Info) Description 07/30/2023 Telephone [facility] [address] [place] [address] Ligia Becerra MD [address] [place] [address] Social History Tobacco Use Types Packs/Day Years [...] Description 01/21/2025 11:15 AM EDT Office Visit [facility] OPTOMETRY [address] [place] [address] TarBritt burks, OD [address] [place] [address] 04/06/2025 3:15 PM EDT Office Visit [facility] [address] [place] [address] Ligia Becerra MD [address] [place] [address] documented as of this encounter Visit Diagnoses Not on filedocumented in this encounter Additional Health Concerns Assessment Noted Time PHQ-9 Depression Total Score: 18 023 3:56 PM EDT documented as of this encounter Care Teams Broach Trouble Shooter Relationship Specialty Start Date End Date Ligia Becerra MD [address] [place] [address] PCP - General Family Medicine 07/22/22 Jair Pro MD [address] [place] [address] Urology 07/24/24 Tim Herrera [address] [place] [address] Neurosurgery 07/24/24 Trung Slade MD [address] [place] [address] Gastroenterology 10/19/24 documented as of this encounter
--- OUTSIDE RECORDS SUMMARY | 2024-12-21 06:13 | XMS_ITS | Clinical Summary ---
Author Organization [facility] it Address [address] [place] [address] Care Team Providers Care Crop Ranch Hand Name Role Phone Unavailable Primary Care [...]
--- OUTSIDE RECORDS SUMMARY | 2024-12-21 06:13 | XMS_ITS | Encounter Summary ---
Author Organization [employer] Address [address] [facility] 7t [place] [address] Care Team Providers Care Asbestos Abatement Worker Name Role Phone Ligia Becerra MD Primary Care Provider [phone] Jair Pro MD Unavailable Tim Herrera Unavailable Trung Slade MD Unavailable [phone] Reason for Visit * Reason Onset Date Comments Nurse Triage 09/15/2023 Encounter Details Date Type Department Care Team (Late st Contact Info) Description 09/15/2023 Telephone [facility] [address] [place] [address] Ligia Becerra MD [address] [place] [address] Nurse Triage Social History Tobacco Use Types [...] accepted this outcome Please contact pt at [phone] documented in this encounter Plan of Treatment Upcoming Encounters Date Type Department Care Team (Late st Contact Info) Description 01/21/2025 11:15 AM EDT Office Visit [facility] OPTOMETRY [address] [place] [address] Britt Zurita OD [address] [place] [address] 04/06/2025 3:15 PM EDT Office Visit [facility] [address] [place] [address] Ligia Becerra MD [address] [place] [address] documented as of this encounter Visit Diagnoses Not on filedocumented in this encounter Additional Health Concerns Assessment Noted Time PHQ-9 Depression Total Score: 18 023 3:56 PM EDT documented as of this encounter Care Teams Asbestos Abatement Worker Relationship Specialty Start Date End Date Ligia Becerra MD [address] [place] [address] PCP - General Family Medicine 07/22/22 Jair Pro MD [address] [place] [address] Urology 07/24/24 Tim Herrera [address] [place] [address] Neurosurgery 07/24/24 Trung Slade MD [address] 3rd [place] [address] Gastroenterology 10/19/24 documented as of this encounter
--- OUTSIDE RECORDS SUMMARY | 2024-12-21 06:13 | XMS_ITS | Encounter Summary ---
Author Organization [employer] Address [address] [place] [address] Care Team Providers Care Car Sales Associate Name Role Phone Ligia Becerra MD Primary Care Provider [phone] Jair Pro MD Unavailable Tim Herrera Unavailable Trung Slade MD Unavailable [phone] Reason for Visit * Reason Onset Date Comments Durable Medical Equipment 03/22/2024 Encounter Details Date Type Department Care Team (Late st Contact Info) Description 03/22/2024 Telephone [facility] MEDICINE [address] [place] [address] Ligia Becerra MD [address] [place] [address] Durable Medical Equipment Social History Tobacco Use [...] the past 12 months, has t he [email or web address], gas, oil or water company threatened to [...] Sopra Cream Recliner Please contact pt at [phone] documented in this encounter Plan of Treatment Upcoming Encounters Date Type Department Care Team (Late st Contact Info) Description 01/21/2025 11:15 AM EDT Office Visit [facility] OPTOMETRY [address] [place] [address] Britt Zurita, OD [address] [place] [address] 04/06/2025 3:15 PM EDT Office Visit [facility] MEDICINE [address] [place] [address] Ligia Becerra MD [address] [place] [address] documented as of this encounter Visit Diagnoses Not on filedocumented in this encounter Additional Health Concerns Assessment Noted Time PHQ-9 Depression Total Score: 3 03/18/20 24 11:59 AM EDT documented as of this encounter Care Teams Car Sales Associate Relationship Specialty Start Date End Date Ligia Becerra MD [address] [place] [phone] PCP - General Family Medicine 07/22/22 Jair Pro MD [address] [place] [address] Urology 07/24/24 Tim Herrera [address] [place] [address] Neurosurgery 07/24/24 Trung Slade MD [address] 3rd [place] [address] Gastroenterology 10/19/24 documented as of this encounter
--- OUTSIDE RECORDS SUMMARY | 2024-12-21 06:13 | XMS_ITS | Encounter Summary ---
Author Organization [employer] Address [address] [facility] 7t [place] [address] Care Team Providers Care Store Stock Associate Name Role Phone Ligia Becerra MD Primary Care Provider [phone] Jair Pro MD Unavailable [phone] Tim Herrera Unavailable [phone] Trung Slade MD Unavailable [phone] Reason for Referral * Consultation (Routine) - Closed Specialty Diagnoses / Procedures Referred By Contac t Referred To Contact Physical Therapy Diagnoses Chronic bilateral thoracic back pain Bilateral deafness Ligia Becerra MD [address] [place] [address] Phone: tel: fax: [facility], Audiology [address] Phone: tel: fax: Referral ID Status Reason Start Date Expiration Date V isits Requested Visits Authorized [id number] Closed Specialty Services Required 06/22/2024 06/22/2025 1 1 Encounter Details Date Type Department Care Team (Late st Contact Info) Description 06/17/2024 Orders Only [facility] [address] [place] [address] Ligia Becerra MD [address] [place] [address] [phone] Chronic bilateral thoracic back pain (Primary Dx); [...] Upcoming Encounters Date Type Department Care Team ([facility] st Contact Info) Description 01/21/2025 11:15 AM EDT Office Visit [facility] OPTOMETRY [address] [place] [address] Britt Zurita, OD [address] [place] [address] 04/06/2025 3:15 PM EDT Office Visit [facility] MEDICINE [address] [place] [address] Ligia Becerra MD [address] [place] [address] Scheduled Referrals Name Type Priority Associated Diagnoses [...] documented as of this encounter Care Teams Store Stock Associate Relationship Specialty Start Date End Date Ligia Becerra MD [address] [place] [address] PCP - General Family Medicine 07/22/22 Jair Pro MD [address] [place] [address] Urology 07/24/24 Tim Herrera [address] [place] [address] Neurosurgery 07/24/24 Trung Slade MD [address]rd [place] [address] Gastroenterology 10/19/24 documented as of this encounter
[2024-12-29 10:22] VITALS: BMI 32.6
--- NOTE | 2025-01-05 08:48 | HO.ANESPROP2 ---
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 ACS/NSTEMI during 2020 admit with bronchospasm - tx'd to [facility] for cath (nml coronaries) [facility] Active Problems Active Problems: All Active Problems Thoracic myelopathy (Acute) Upper extremity weakness (Acute) COVID (Acute) Enlarged prostate (Acute) Elevated PSA (Acute) Bladder wall thickening (Acute) Weak urinary stream (Acute) Recurrent UTI (Acute) Incomplete bladder emptying (Acute) NSTEMI (non-ST elevated myocardial infarction) (Acute) Rhinovirus (Acute) Acute coronary syndrome (Acute) Pneumonia (Acute) Spinal stenosis of lumbar region with neurogenic claudication (Acute) Lumbar spinal stenosis (Acute) Muscle spasm of back (Acute) Lumbar degenerative disc disease (Acute) Lumbar spondylosis (Acute) Lumbar radiculitis (Acute) Myofascial pain on right side (Acute) Tubular adenoma of colon (Acute) Past Medical History Medical History (Updated 12/29/24 @ 10:16 by Nuvia Jenkins RN) Insomnia Anxiety GERD (gastroesophageal reflux disease) Nasal congestion (~12/22/24) Cough (~12/22/24) Deaf Tubular adenoma of colon Personality disorder 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 Asthma Gender dysphoria Bradycardia Renal calculi Degenerative disc disease, lumbar Lumbar spinal stenosis Hearing impaired Hypertension Depression Family History Family History Other No known health problems Surgical History Surgical History (Updated 12/29/24 @ 10:24 by Nuvia Jenkins RN) History of lumbar laminectomy (08/12/23) H/O cervical spine surgery History of esophagogastroduodenoscopy (EGD) H/O colonoscopy (07/02/24) History of Problems with Anesthesia: No Social History Social History Household Members Other:: roommate Are you a primary dog daycare provider to a significant other at home: No Do you presently have visiting nurse or other home services: No Alcohol intake: never Comment: overflow Patient Tobacco Use Status: Former Tobacco user Use of substances other than those prescribed or required for medical reasons: No Have you been hit, kicked, punched, or otherwise hurt by someone within the past year? If so, by whom?: No Are you DNR?: No Advance Directives: No Advance Directives Information Provided: Yes Poor oral hygiene: No Current occupational status: disabled Current occupation: right handed Meds Allergies Allergy/AdvReac Type Severity Reaction Status Date / Time No Known Allergies Allergy Verified 09/06/24 13:36 [No Known Allergies*] Home Medications ?Medication ?Instructions ?Recorded ?Confirmed ?Last Taken ?Type famotidine 20 mg tablet 20 mg PO BID 11/10/23 04/01/24 Unknown History cetirizine 10 mg tablet 10 mg PO QAM 02/23/24 04/01/24 Unknown History Exam Height,Weight and Vital Signs: Height 5 ft 4 in Weight 86.183 kg Pertinent Lab Results Pertinent Lab Results: Laboratory Tests 08/18/24 15:01 WBC 9.3 Hgb 14.7 Hct 41.8 L Plt Count 178 Sodium 142 Potassium 4.1 Chloride 111 H Carbon Dioxide 24 BUN 17 H Creatinine 0.85 Narrative Narrative: EKG 08/2024 Vent. Rate : 51 BPM Atrial Rate : 51 BPM P-R Int : 172 ms QRS Dur : 86 ms QT Int : 436 ms P-R-T Axes : 66 43 18 degrees QTcB Int : 401 ms Sinus bradycardia Otherwise normal ECG When compared with ECG of 02-Apr-2024 20:03, No significant change was found ECHO 2020 Conclusions: - 1. Hyperdynamic LV systolic function with LVEF of greater than 70% 2. Cardiac valves not well visualized with normal cardiac valvular Doppler 3. No gross pericardial effusion Assessment and Plan Assessment Anesthesia Assessment: Chart Reviewed Final Anesthetic Review History of Problems with Anesthesia: No Documented by User: Moy Layton MD 01/06/25 11:25 [facility] Past Medical History Medical History (Updated 12/29/24 @ 10:16 by Nuvia Jenkins RN) Insomnia Anxiety GERD (gastroesophageal reflux disease) Nasal congestion (~12/22/24) Cough (~12/22/24) Deaf Tubular adenoma of colon Personality disorder 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 Asthma Gender dysphoria Bradycardia Renal calculi Degenerative disc disease, lumbar Lumbar spinal stenosis Hearing impaired Hypertension Depression Cognitive capacity: no neurocognitive dysfunction problems Functional capacity: uses cane/walker Family History Family History Other No known health problems Family history of problems with anesthesia: No Surgical History Surgical History (Updated 12/29/24 @ 10:24 by Nuvia Jenkins RN) History of lumbar laminectomy (08/12/23) H/O cervical spine surgery History of esophagogastroduodenoscopy (EGD) H/O colonoscopy (07/02/24) Social History Social History Household Members Other:: roommate Are you a primary dog daycare provider to a significant other at home: No Do you presently have visiting nurse or other home services: No Alcohol intake: never Comment: overflow Patient Tobacco Use Status: Former Tobacco user Use of substances other than those prescribed or required for medical reasons: No Have you been hit, kicked, punched, or otherwise hurt by someone within the past year? If so, by whom?: No Are you DNR?: No Advance Directives: No Advance Directives Information Provided: Yes Poor oral hygiene: No Current occupational status: disabled Current occupation: right handed Meds Allergies Allergy/AdvReac Type Severity Reaction Status Date / Time No Known Allergies Allergy Verified 09/06/24 13:36 [No Known Allergies*] Home Medications ?Medication ?Instructions ?Recorded ?Confirmed ?Last Taken ?Type famotidine 20 mg tablet 20 mg PO BID 11/10/23 04/01/24 Unknown History cetirizine 10 mg tablet 10 mg PO QAM 02/23/24 04/01/24 Unknown History Exam Airway Mallampati Class: II TM Dist: >3cm Neck ROM: Full Heart: rrr Lungs: cta Other: normal appearimg patient Assessment and Plan Final Anesthetic Review Family History of Problems with Anesthesia: No ASA Class: II Final Preanesthetic Review: No Changes in Pt Med Stat, Meds/Allgs Chart Reviewed, Consent Obtained/Reviewed and Anes Risks/Benef Reviewed Patient Risk: Low Procedure Risk: Low Anesthetic Plan Anesthetic Plan: GA Disposition: Standard PACU
[2025-01-06] VITALS (13 sets, daily range): BP systolic 122–171; BP diastolic 55–79; PULSE 48–70; RESP 12–16; TEMP 36.1–36.4; O2SAT 94–100; BMI 33.1
--- NOTE | ~2025-01-06 | FL_ITS ---
EXAMINATION: FL GUIDANCE ONLY HISTORY: L4-5 DECOMPRESSION COMPARISON: None available. TECHNIQUE: Fluoroscopy time: 2.1 seconds. Cumulative Dose: 1.6362 mGy. DAP: 0.6222 mGym2 Images: 3. FINDINGS: Multiple fluoroscopic spot films of the lumbar spine in the lateral projection demonstrate a probe directed toward the L4-5 intervertebral disc space from a posterior approach. FL/FL guidance in OR IMPRESSION: Fluoroscopy during procedure. Please see procedure report for additional information. Electronically signed by: Marquise Laurent MD 01/06/2025 01:06 PM EDT
[2025-01-06] MEDS: Gabapentin 300 MG CAPSULE PO (11:25)
[2025-01-06] MEDS: Lactated Ringers 1,000 ML 100 ML IVCONT (11:25)
[2025-01-06] MEDS: methocarbamoL 750 MG TABLET PO (11:25)
--- NOTE | 2025-01-06 11:41 | MHC.SHP ---
Pre-Procedural Eval Section A - 24 Hr Update-Section A only Date of Service: 01/06/25 The patient is an INPATIENT: No The patient has been examined within 24 hours of the surgical procedure. The History & Physical has been completed within 30 days and I have reviewed it.: No Section B - Complete if H&P > 30 days Chief Complaint: Spinal stenosis, lumbar region with neurogenic cla Allergies: Allergies Allergy/AdvReac Type Severity Reaction Status Date / Time No Known Allergies Allergy Verified 09/06/24 13:36 [No Known Allergies*] Review of Systems Sugical H&P ROS: Negative: Constitution, Cardiovascular, Respiratory, Neurological, Psychiatric, Hem-Onc, Allergic/Immunologic, Gastrointestinal, Genitourinary, Musculoskeletal, Integumentary, Endocrine and Eyes/Ears/Nose/Throat Exam Surgical H&P Exam: Normal: HEENT, Normal: Heart, Normal: Lungs, Normal: Extremities, Normal: Abdomen, Normal: Skin and Normal: Neurological (awake, alert, follows commands ) Plan Diagnosis/Plan: Unchanged L4-5 decompression Time Spent With Patient Time: Total time managing care of this patient today __5__ minutes.
[2025-01-06] MEDS: ceFAZolin Sodium/Dextrose,Iso 2 GM/50 ML PIGGYBACK IV (11:50)
--- NOTE | 2025-01-06 13:37 | PM.DS ---
DS: Providers Provider Date of Service: 01/06/25 Date of discharge: 01/06/25 Primary care physician: Unknown Physician DS: Summary Time Attestation Discharge Coordination Time (in mins): 12 Quality: Safe Use of Opioids Does Pt have an Active Cancer Diagnosis on the Problem List?: No Quality: Stroke Does the patient have a stroke diagnosis?: No Physical Exam Vital Signs: Vital Signs: Last Vital Signs Temp 97.5 F 01/06/25 11:20 Pulse 54 01/06/25 11:20 Resp 16 01/06/25 11:20 BP 122/60 01/06/25 11:20 Pulse Ox 95 01/06/25 11:20 O2 Del Method Room Air 01/06/25 11:20 BMI result Body Mass Index 33.1 Discharge Plan Discharge Patient Disposition: Home, Self-Care Referrals: Physician,Unknown J [Primary Care Provider] - 1 Week Discharge Medications: New oxycodone 5 mg tablet 5 mg PO Q6H PRN (Reason: pain) Qty: 21 0RF Rx Instructions: Partial Fill upon patient request. Continued trazodone 50 mg tablet 50 mg PO BEDTIME PRN (Reason: insomnia) Qty: 5 0RF lorazepam [Ativan] 1 mg tablet 1 mg PO BEDTIME PRN (Reason: sleep) Qty: 10 0RF bisacodyl [Dulcolax (bisacodyl)] 5 mg tablet,delayed release (DR/EC) 10 mg PO BEDTIME Qty: 60 4RF terazosin 5 mg capsule 5 mg PO BEDTIME 30 Days Qty: 30 1RF Discharge Orders: Discharge Order (Routine); Ordered 01/06/25 Ordered By: Brendon Corrales Diet: Advance to usual diet Activity on Discharge: As tolerated Activity Restrictions/Additional Instructions: After your spinal surgery we ask you to observe the following restrictions/guidelines: Activity: It is normal to feel some discomfort as you increase your activity, but that will improve with time. We ask you avoid heavy lifting or acitivities that cause pain. As a general rule, 8lbs is a safe limit for lifting right after surgery. Walk as much as you feel comfortable but not to exhaustion. You will feel extra tired the first few days after surgery. Stay well hydrated. It is OK to walk up and down stairs You may return to driving when you are off narcotics (such as vicodin, oxycodone, dilaudid, etc), and you are back to normal functional capacity. If you have any concerns please check with office before driving. Return to work is specific to each patient and each surgery, so please speak with your doctor/PA at first follow up. Please bring paperwork such as FMLA at that time if you need it filled out. Medications: We recommend you take 1,000mg Tylenol every 8 hours for the first few weeks after surgery, if you do not have any liver issues and can tolerate this medication. Do not exceed 4,000mg daily. We will give you a short supply of narcotics after surgery (usually one weeks worth). If you need more please call the office but do not use more than prescribed. You will need to give our office 48 hours notice if you need narcotics refilled and we do not fill narcotics on weekends or evenings. If you are on a narcotic, it is a good idea to take a stool softener such as colace or senna to avoid constipation If you take blood thinner such as aspirin, Plavix, Coumadin, Effient, Eliquis etc for conditions such as Afib, DVT, Pulmonary embolus, coronary disease, stents etc please speak with your surgeon about specific details as to when you can resume these medications. You can resume NSAIDs on post op day 1 (eg: Motrin, Naproxen, etc). Follow up: Please call the office, , after surgery to arrange a 3 week follow up for wound check. Wound Care: You may remove your dressing on the first day after surgery. ?You may ?leave open to air. Please do not remove the steri strips underneath. they will fall off on their own in one week. IT IS NORMAL FOR THE WOUND TO OOZE OR BE BLOODY FOR A FEW DAYS AFTER SURGERY. ?IF THIS HAPPENS JUST PLACE NEW DRESSING OVER IT TO AVOID STAINING CLOTHES. You may shower on post op day # 1 We ask that you do not let the water soak the wound. If it does get wet, just towel dry lightly. Please do not scrub your incision or place any type of chemical/ointment on the wound. No tub baths, pools or jacuzzis for one month. If you have any leaking or redness from your wound, or fevers, please call the office. Print Language: Greenlandic
--- NOTE | 2025-01-06 13:40 | W.PM.OPN ---
Operative Note Operative Note Date of Service: 01/06/25 Narrative: Preoperative Diagnosis: L4-5 spinal stenosis/lateral recess stenosis/neural foraminal stenosis Operation: L4-5 Laminotomy, Partial facetectomy and foraminotomy with use of microscope Consent Informed Consent was obtained for this operation. I have explained the nature, purpose and benefits of the operation. I have discussed the risks and benefit of the operation including possible complications or adverse events with patient/family. Alternative(s) were discussed with the patient with their relative benefits and risks as well as the consequences of not accepting the operation were included in obtaining consent. 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 The patient was offered a decompression. The procedure complications were explained. The patient was consented. The patient was brought to the operating room and endotracheally intubated. The patient was turned in prone position on the Marquis frame. Prep and drape was done followed by timeout. The Physician senior sales assistant provided access. A mid lumbar incision was made followed by release of the paravertebral muscle bilaterally to expose the L4-5 lamina and facet joints. An intraoperative x-ray was obtained to confirm the correct level. The microscope was brought in. I took over the procedure. The interspinous ligament was resected as well as a part of the L4 and L5 spinous processi. The high-speed drill was used to do a bilateral L4-5 laminotomy until flavum ligament was reached. A #2 and 3. Kerrison were used to expand the laminotomy near flush to the pedicles and to include a partial facetectomy. Severe spinal stenosis was encountered. The flavum ligament was opened and resected with a #3 Kerrison to decompress the underlying thecal sac. The flavum ligament was removed to decompress the lateral recess and the exiting L5 nerve roots bilaterally. A long nerve hook could be easily passed along the medial side of the pedicles as a sign of adequate decompression. The microscope was removed. Hemostasis was done. The physician senior sales assistant close the Incision in 2 layers. Steri-Strips were used to approximate incision. An OpSite with Tegaderm was used to cover the incision. All sponge needle counts were correct. Patient was extubated and transported in stable is to recovery room. Anesthesia: General Estimated Blood Loss (ml): 30 mL Complications: None Duration of Surgery: Under 60 Minutes Postoperative Plan: Discharge to home
[2025-01-06] MEDS: Haloperidol Lactate 5 MG/ML VIAL 1 MG IVPUSH (14:15)
[2025-01-06] MEDS: fentaNYL citrate/PF 100 MCG/2 ML VIAL 50 MCG IVPUSH (14:20)
[2025-01-06] MEDS: oxyCODONE HCl Immed Release 5 MG TABLET PO (15:55)
== END | disposition home or self-care (01) ==
PROVIDERS: Visit Provider Neurological Surgery
PROC: (CPT 63047; principal; 2025-01-06 13:40)
DX: M48.062 Spinal stenosis, lumbar region with neurogenic claudication (principal); Q76.49 Other congenital malformations of spine, not associated with scoliosis; I10 Essential (primary) hypertension; J45.909 Unspecified asthma, uncomplicated; F64.9 Gender identity disorder, unspecified; F60.9 Personality disorder, unspecified; F32.A Depression, unspecified; F41.9 Anxiety disorder, unspecified; R00.1 Bradycardia, unspecified; Z79.899 Other long term (current) drug therapy; Z99.89 Dependence on other enabling machines and devices; Z98.890 Other specified postprocedural states; Z87.891 Personal history of nicotine dependence
CPT/HCPCS: 63047; J0131; J0690; J1100; J1630; J2003; J2250; J2405; J2704; J3010

== ENCOUNTER 2025-01-20 13:42 | Outpatient (AMB) | payer OTHER, SELFPAY ==
--- NOTE | 2025-01-20 14:21 | A.SPINEOV_ITS ---
Intake Visit Reasons: 1st post op Intake Note: Mr. Long is here today for his 1st post op. Molding Line Assistant Required: No Allergies No Known Allergies [No Known Allergies*] Allergy (Verified 01/06/25 12:45) Assessment & Plan Assessment & Plan (1) Spinal stenosis of lumbar region with neurogenic claudication: Code(s): M48.062 - Spinal stenosis, lumbar region with neurogenic claudication Category: Medical Plan Mr Long is 3 weeks out from his L4-5 decompression. He tells me that he is walking okay, but he is dealing with for the most part is back pain and discomfort when he is sitting or when he is standing. He is also still having some pain in his lateral hip. It is hard for me to tell even using mold design engineer [id number] to tell if the preoperative pain is gone. His wound is healed up beautifully in his strength is normal. We discussed activity guidelines, restrictions and expectations after lumbar decompression. I would like to see him back in 6 weeks. I told him that we would not be refilling anymore narcotics at this point. Martir Herrera MD, PhD [facility] Coding Level of Care Code Global (10437) Diagnoses Spinal stenosis of lumbar region with neurogenic claudication M48.062
--- OUTSIDE RECORDS SUMMARY | 2025-01-20 16:03 | XMS_ITS | Continuity of Care Document ---
Author Organization [facility] Address [address] [place] [address] Phone Care Team Providers Care Adult Caregiver Name Role Phone Unavailable Unavailable Unavailable Advance Directives Directive Yes / No Effective Date File Name No Information Encounters Encounter Description Practice Location Reason(s) For Visit Diagnoses Date Provider Providers Copied on Encounter [facility], [address] [place] [address], [address], [place] tel:[phone] [facility] Behavioral Health NO SHOW (chief complaint) No Information 9 No Information Family History Family Member Type Diagnosis Age At Onset No Information Payers Payer name Insurance type Covered libertarian ID Authoriza tion(s) No Information Social History Type Description Quantity Date Captured Comments Sex Male Smoking Status No Information Sexual Orientation Lesbian, dia or homosexual Gender Identity [id number] (FTM) /Transgender Male/Trans Man Chief Complaint And [...]
== END 2025-01-20 14:54 | disposition home or self-care (01) ==
LOC: HO.HNS 13:42
PROVIDERS: Visit Provider Physician Assistant
DX: M48.062 Spinal stenosis, lumbar region with neurogenic claudication (principal)
CPT/HCPCS: 99024

== ENCOUNTER → 2025-01-20 13:42 | Outpatient (BNVA) | payer OTHER, SELFPAY | PROVIDERS: Visit Provider Physician Assistant | DX: M48.062 Spinal stenosis, lumbar region with neurogenic claudication (principal) | CPT/HCPCS: 99212 ==

== ENCOUNTER 2025-02-21 13:36 | Outpatient (AMB) | payer OTHER, SELFPAY ==
--- NOTE | 2025-02-21 13:39 | HO.SPINEOV ---
Intake Visit Reasons: pain - ASL Intake Note: Mr. Long is here today c/c pain. Repairer Cylinder Heads Required: Yes Repairer Cylinder Heads Name: ASL-TABLET Allergies No Known Allergies (No Known Allergies*) Allergy (Verified 01/06/25 12:45) Assessment & Plan Assessment & Plan (1) Lumbar spinal stenosis: Code(s): M48.061 - Spinal stenosis, lumbar region without neurogenic claudication Category: Medical Plan This visit was done with roof bolter helper [id number]. Unfortunately the patient has not seen much in the way of improvement compared to her preoperative pain. There is still significant back pain as well as pain radiating down the left buttock into the left lateral thigh with standing and walking. His incision is healed up well. There is no focal motor weakness. He continues to use some of the pain medication prescribed, they could not remember the name but I suspect it is the tizanidine as we have not prescribe them narcotics and quite some time. I would like to order a lumbar MRI with and without gadolinium to assess the surgical area, but I did admonished the patient and his friend that there are certain patients that just do not respond to surgery and he could be in this group. Martir Herrera MD, PhD [facility] Orders: Orders MR lumbar spine wo/w con Today M48.061 - Spinal stenosis, lumbar region without neurogenic claudication Coding Level of Care Code Global (82247) Diagnoses Lumbar spinal stenosis M48.061
--- OUTSIDE RECORDS SUMMARY | 2025-02-21 14:47 | XMS_ITS | Encounter Summary ---
Author Organization [employer] Address [address] [facility] 7t [place] [address] Care Team Providers Care Seasoning Mixer Name Role Phone Ligia Becerra MD Primary Care Provider [phone] Jair Pro MD Unavailable [phone] Tim Herrera Unavailable Trung Slade MD Unavailable [phone] Reason for Visit * Reason Onset Date Comments PT1 10/06/2023 Encounter Details Date Type Department Care Team (Late st Contact Info) Description 10/06/2023 Telephone [facility] MEDICINE [address] [place], [place] [phone] Ligia Becerra MD [address] [place] [address] PT1 Social History Tobacco Use Types Packs/Day [...] 3 PM Visits: 5 per month Address: [address] [place] [address] Facility: N Wheel Chair: no, walker [employer] Farmer Needed: yes Date: n/a Time: n/a Visits: 5 per month Address: [address] [place] [address] Facility: [facility] Wheel Chair: No, walker [employer] Nut [employer] Farmer Needed: yes documented in this encounter Plan of Treatment Upcoming Encounters Date Type Department Care Team ([facility] Contact Info) Description 04/06/2025 3:15 PM EDT Office Visit [facility] MEDICINE [address] [place] [address] Ligia Becerra MD [address] [place] [address] 07/25/2025 11:15 AM EST Office Visit [facility] OPTOMETRY [address] [place] [address] Britt Zurita OD [address] [place] [address] documented as of this encounter Visit Diagnoses Not on filedocumented in this encounter Additional Health Concerns Assessment Noted Time PHQ-9 Depression Total Score: 18 023 3:56 PM EDT documented as of this encounter Care Teams Seasoning Mixer Relationship Specialty Start Date End Date Ligia Becerra MD [address] [place] [address] PCP - General Family Medicine 07/22/22 Jair Pro MD [address] [place] [address] Urology 07/24/24 Tim Herrera [address] [place] [address] Neurosurgery 07/24/24 Trung Slade MD [address] 3rd [place] [address] Gastroenterology 10/19/24 documented as of this encounter
== END 2025-02-21 14:08 | disposition home or self-care (01) ==
LOC: HO.HNS 13:37
PROVIDERS: Visit Provider Physician Assistant
DX: M48.061 Spinal stenosis, lumbar region without neurogenic claudication (principal)
CPT/HCPCS: 99024

== ENCOUNTER → 2025-02-21 13:36 | Outpatient (BNVA) | payer OTHER, SELFPAY | PROVIDERS: Visit Provider Physician Assistant | DX: M48.061 Spinal stenosis, lumbar region without neurogenic claudication (principal) | CPT/HCPCS: 99212 ==

== ENCOUNTER 2025-03-11 10:27 | Outpatient (REF) | payer OTHER, SELFPAY ==
--- OUTSIDE RECORDS SUMMARY | 2018-11-11 09:00 | XMS_ITS | Continuity of Care Document ---
Author Organization [facility] v[facility] Address [address] [place] [address] Phone Care Team Providers Care Collector Of Internal Revenue Name Role Phone Unavailable Unavailable Unavailable Advance Directives Directive Yes / No Effective Date File Name No Information Encounters Encounter Description Practice Location Reason(s) For Visit Diagnoses Date Provider Providers Copied on Encounter [facility], [address] [place] [address], [id number], [place] tel:[phone] [facility] Behavioral Health NO SHOW (chief complaint) No Information 9 No Information Family History Family Member Type Diagnosis Age At Onset No Information Payers Payer name Insurance type Covered green party ID Authoriza tion(s) No Information Social History Type Description Quantity Date Captured Comments Sex Male Smoking Status No Information Sexual Orientation Lesbian, dia or homosexual Gender Identity Dqrbxp-ir-[id number] (FTM) /Transgender Male/Trans Man Chief Complaint And Reason For Visit From encounter dated '11/11/2018 13:00'. NO SHOW (chief complaint). Description: Client did not show for BH Consult. Reason For Referral Reason For Referral No Information History Of Present Illness Encounter Date Complaint History Of Prese nt Illness NO SHOW Client did not s how for BH Consult. Functional Status Date Functional Assessmen t No Information Instructions Date Instruction Additional Infor mation No Information Assessments Type Assessment Date No Information Patient Care Teams Name Effective Dates (start - stop) Status Members No Information
--- NOTE | ~2025-03-11 | MR_ITS ---
EXAM: MRI lumbar spine without and with IV contrast TECHNIQUE: Multiplanar multisequence imaging was performed through the lumbar spine without and with contrast. INDICATION: M48.061 - Spinal stenosis, lumbar region without neurogenic claudication, Persistent left leg pain after surgery CONTRAST: 8.5 mL Gadavist PRIOR: X-ray November 26, 2024 and MRI November 08, 2024 FINDINGS: 5 non-rib bearing lumbar segments are present on x-ray. There is a small vertebral hemangioma in posterior T11 vertebral body. Modic 2 signal changes present posterior L2-3, and diffusely across L4-5. There is mixed Modic 1 and 3 signal at L5-S1. Since prior examination, there are new postsurgical changes with postoperative fluid in the interspinous placed between L4-5, and angling obliquely upward through the plane of the deep subcutaneous soft tissues fluid collection has flat and concave margins not suggestive of hematoma or abscess. There is also edema in the paraspinal soft tissues between mid L3 and sacrum and subcutaneous adipose tissues posterior to the lumbar spine. With contrast, there is a reticulated pattern of enhancement of the edematous soft tissues. The termination of conus medullaris is within normal limits at the level of mid L1. Alignment: There is subtle retrolisthesis throughout all levels of the lumbar spine. T12-L1: There is mild loss disc height and disc desiccation with circumferential broad-based disc bulge and moderate facet arthropathy resulting in mild spinal stenosis and moderate left foraminal narrowing similar to the prior. L1-L2: There is moderate loss of disc height and circumferential broad-based disc bulge. There is moderate facet arthropathy and trace fluid in the right facet joint. There is borderline mild spinal stenosis without foraminal narrowing. Unchanged. L2-L3: There is mild loss disc height and circumferential broad-based disc bulge and left greater than right focal disc extrusion. There is mild to moderate facet hypertrophy. There is moderate spinal stenosis and mild to moderate bilateral foraminal narrowing that appears mildly improved. L3-L4: There is mild loss disc height and circumferential broad-based disc bulge and broad posterior disc extrusion with moderate facet arthropathy resulting in mild spinal stenosis and moderate foraminal narrowing, greater on the prior, unchanged. L4-L5: Postsurgical changes have been performed with posterior decompression. There is severe loss of disc height and circumferential broad-based disc bulge with broad posterior disc protrusion and moderate facet arthropathy resulting in mild spinal stenosis, improved from the prior. There is persistent encroachment of bilateral subarticular zones. There is moderate to severe right and moderate left foraminal narrowing, unchanged. Disc contacts right L4 nerve root in the far lateral zone. There is hyperenhancement of the postoperative bed from the posterior epidural space to the fascia overlying the paraspinal musculature. There is also small fluid collection in the interspinous space. L5-S1: There is moderate severe loss of disc height and circumferential broad-based disc bulge with moderate facet arthropathy. Disc minimally contacts the thecal sac without causing spinal stenosis. There is moderate bilateral foraminal narrowing similar to the prior. This contacts L5 nerve roots in the far lateral zone, left greater than right. MR/MR lumbar spine wo/w con IMPRESSION: L4-5: Postoperative changes are present related to posterior decompression surgery. There is hyperenhancement of the paraspinal soft tissues and posterior epidural space. There is a small fluid collection in the interspinous space and in the deep subcutaneous soft tissues not highly suggestive of an abscess. There is improved but persistent mild spinal stenosis and subarticular zone narrowing. Moderate to severe right and moderate left foraminal narrowing persists. Other levels are essentially unchanged. Electronically signed by: Hunter Mcmanus MD 03/11/2025 12:47 PM EDT
--- OUTSIDE RECORDS SUMMARY | 2025-03-11 10:38 | XMS_ITS | Encounter Summary ---
Author Organization [employer] Address [address] [facility] 7t [place] [address] Care Team Providers Care Yard Crane Operator Name Role Phone Ligia Becerra MD Primary Care Provider [phone] Jair Pro MD Unavailable [phone] Tim Herrera Unavailable [phone] Trung Slade MD Unavailable [phone] Reason for Visit * Reason Onset Date Comments PT1 10/06/2023 Encounter Details Date Type Department Care Team (Late st Contact Info) Description 10/06/2023 Telephone [facility] MEDICINE [address] [place], [place] [phone] Ligia Becerra MD [address] [place] [address] PT1 Social History Tobacco Use Types Packs/Day [...] 3 PM Visits: 5 per month Address: [address] [place] [address] Facility: N Wheel Chair: no, walker Truck Repair Supervisor Needed: yes Date: n/a Time: n/a Visits: 5 per month Address: [address] [place] [address] Facility: [facility] Wheel Chair: No, walker Truck Repair Supervisor Needed: yes documented in this encounter Plan of Treatment Upcoming Encounters Date Type Department Care Team ([facility] Contact Info) Description 04/06/2025 3:15 PM EDT Office Visit [facility] MEDICINE [address] [place] [address] iLgia Becerra MD [address] [place] [address] 07/25/2025 11:15 AM EST Office Visit [facility] OPTOMETRY [address] [place] [address] Britt Zurita OD [address] [place] [address] documented as of this encounter Visit Diagnoses Not on filedocumented in this encounter Additional Health Concerns Assessment Noted Time PHQ-9 Depression Total Score: 18 023 3:56 PM EDT documented as of this encounter Care Teams Yard Crane Operator Relationship Specialty Start Date End Date Ligia Becerra MD [address] [place] [address] PCP - General Family Medicine 07/22/22 Jair Pro MD [address] [place] [address] Urology 07/24/24 Tim Herrera [address] [place] [address] Neurosurgery 07/24/24 Trung Slade MD [address] 3rd [place] [address] Gastroenterology 10/19/24 documented as of this encounter
--- OUTSIDE RECORDS SUMMARY | 2025-03-11 10:38 | XMS_ITS | Clinical Summary ---
Author Organization [facility] Address [address] [place] [address] Phone Care Team Providers Care Shingle Inspector Name Role Phone Mariam, Ligia CABA Primary Care Provider [phone] Allergies No known active allergies Medications diclofenac (VOLTAREN) 1 % topical gel Apply 4 g topically 4 (four) times a day. 480 g 04/01/20 25 Active Encounters Date Type Department Care Team Description 03/02/2025 10:58 PM EDT - 03/02/2025 11:18 PM EDT Emergency [facility] Emergency [address] [place] [address] Cervical radiculopathy (Primary Dx) Discharge Disposition: Home or Self Care from Last 3 Months Social History Tobacco Use Types Packs/Day Years Used Date Smoking Tobacco: Never Assessed Sex and Gender Information Value Date Recorded Sex Assigned at Not on file Legal Sex Male 9:39 AM EST Gender Identity Not on file Sexual Orientation Not on file Last Filed Vital Signs Vital Sign Reading Time Taken Comments Blood Pressure 96/64 03/02/2025 7:34 PM EDT Pulse 60 03/02/2025 7:34 PM EDT Temperature 36.7 C (98.1 F) 03/02/2025 7:34 PM EDT Respiratory Rate 18 03/02/2025 7:34 PM EDT Oxygen Saturation 98% 03/02/2025 7:34 PM EDT Inhaled Oxygen Concentration - - Weight 84.8 kg (187 lb) 03/02/2025 7:34 PM EDT Height 167.6 cm (5' 6 ) 03/02/2025 7:34 PM EDT Body Mass Index 30.18 03/02/2025 7:34 PM EDT Plan of Treatment Health Maintenance Due Date Last Done Comments Colorectal Cancer Screening: Colonoscopy 07/09/2022 Medicare Annual Wellness Visit 07/09/2022 Social Influencers of Health Screening 07/09/2022 Falls Risk Assessment 2023 Depression Screening 08/11/2024 COVID-19 Vaccine ( season) 2024 05/19/2024, 08/14/2023, 06/24/2022, Additional history exists Hypertension/CHF/CAD Annual BMP Blood Test 12/23/2024 Influenza Vaccine (#1) 2025 , 05/23/2023, 07/29/2022, Additional history exists Cholesterol Screening (Lipid Panel) 07/29/2027 07/29/2022 DTaP,Tdap,and Td Vaccines (4 - Td or Tdap) 08/15/2032 08/15/2022, 06/22/2015, 09/05/2012 Hepatitis C Screening Completed 07/29/2022 Pneumococcal Vaccine: 50+ Years Completed 05/23/2023, 09/03/2012 RSV Immunization Adult Patients Completed 08/22/2023 Zoster Vaccines Completed 04/06/2024, 08/22/2023 HIB Vaccines Aged Out No longer eligi [...] to complete this topic RSV Immunization Patients Under 20 months Aged Out No longer eligible based on patient's age to complete this topic Varicella Vaccines Aged Out No longer eligible based on patient's age to complete this topic Procedures Procedure Name Priority Date/Time Associated Diagnosis Comments XR SHOULDER 2+ VIEWS LEFT STAT 03/02/2025 10:05 PM EDT from Last 3 Months Results * XR Shoulder 2+ Views Left (03/02/2025 10:05 PM EDT) Anatomical Region Laterality Modality Upper Extremities, Shoulder Left Radi ographic Imaging 03/03/2025 8:31 AM EDT Impressions 03/03/2025 8:33 AM EDT 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 Otherwise, normal examination, without acute findings. Code 55325 -------- FINAL REPORT -------- Dictated By: David Sexton Dictated Date: 03/03/2025 08:31 ET Assigned Physician: David Sexton Reviewed and Electronically Signed By: David Sexton Signed Date: 03/03/2025 08:33 ET Workstation ID: [id number] Transcribed By: Self Edit Transcribed Date: 03/03/2025 08:31 ET Narrative 03/03/2025 8:33 AM EDT HISTORY: The patient is a 65-year-old male with left shoulder pain. No history of trauma is provided. FINDINGS: AP, left posterior oblique, and transscapular views of the left shoulder are obtained. The study demonstrates no fracture or dislocation. There is very mild osteoarthritis of the acromioclavicular joint. There is no arthritic change of the glenohumeral joint. No soft tissue abnormality is seen. Procedure Note David Sexton MD - 03/03/2025 HISTORY: The patient is a 65-year-old male with left shoulder pain. Nohistory of trauma is provided. FINDINGS: AP, left posterior oblique, and transscapular views of the leftshoulder are obtained. The study demonstrates no fracture or dislocation.There is very mild osteoarthritis of the acromioclavicular joint. There isno arthritic change of the glenohumeral joint. No soft tissue abnormalityis seen. 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 Otherwise, normalexamination, without acute findings. Code 87592 -------- FINAL REPORT -------- Dictated By: David Sexton Dictated Date: 03/03/2025 08:31 ET Assigned Physician: David Sexton Reviewed and Electronically Signed By: David Sexton Signed Date: 03/03/2025 08:33 ET Workstation ID: [id number] Transcribed By: Self Edit Transcribed Date: 03/03/2025 08:31 ET Concepción FRANKS IMG XR PROCEDURES Final Result from Last 3 Months Insurance * Guarantor: [employer] Account Type Relation to Patient Date of Phone Billing Address Personal/Family Self 1960 [address] [facility] [place] [id number] [employer] MEDICARE Member Subscriber Plan / Payer (Ef fective 2024-Present) Name:VON CALLAWAY Relation to Subscriber:Self Name:Von Long Payer ID:[id number] Group ID:[id number] Type:Not on file Address: [address] [place] [address] Care Teams Shingle Inspector Relationship Specialty Start Date End Date Guadalupe, MD Ligia [address] [place] [phone] PCP - General Family Medicine 03/02/25
== END 2025-03-11 10:28 | disposition home or self-care (01) ==
LOC: HO.MRI 10:27
PROVIDERS: PCP Family Medicine; Visit Provider Physician Assistant
DX: M48.061 Spinal stenosis, lumbar region without neurogenic claudication (principal)
CPT/HCPCS: 72158; A9585

== ENCOUNTER → 2025-03-11 11:11 | Outpatient (BNV) | payer OTHER, SELFPAY | PROVIDERS: PCP Family Medicine; Visit Provider Radiology Diagnostic Radiology | DX: M48.061 Spinal stenosis, lumbar region without neurogenic claudication (principal) | CPT/HCPCS: 72158 ==

== ENCOUNTER 2025-03-24 13:22 | Outpatient (AMB) | payer OTHER, SELFPAY ==
--- NOTE | 2025-03-24 13:30 | A.SPINEOV_ITS ---
Intake Visit Reasons: 2nd post op Intake Note: Pt. is here today for 2nd post-op visit. Allergies No Known Allergies (No Known Allergies*) Allergy (Verified 01/06/25 12:45) Assessment & Plan Assessment & Plan (1) Lumbar spinal stenosis: Code(s): M48.061 - Spinal stenosis, lumbar region without neurogenic claudication Category: Medical Plan Mr Long came back in follow-up. His postoperative MRI shows excellent decompression at L4-5. There is still some marginal stenosis at L2-3 but nothing profound. I explained to him with the help of flower shop laborer/designer [id number] that I do not believe there is anything more we can do for him. Despite excellent decompression, there has been no improvement in symptoms. We could be dealing with a whole different diagnosis altogether, something like polyneuropathy. It is also possible that this is just longstanding nerve compression that did not improve with surgery and there is a small percentage of patients for which a spinal cord stimulator can be helpful in this circumstance. I will send the patient for an EMG to see if we can get some clarification on this. If it does not come up with an alternate diagnosis, then we can send the patient to 1 of our colleagues for consideration of spinal cord stimulator. I will also review the MRI with Dr. Herrera to see if he has any other thoughts. Martir Herrera MD, PhD [facility] Orders: Orders NE electromyogram (EMG) Today M48.061 - Spinal stenosis, lumbar region without neurogenic claudication Coding Level of Care Code Global (31159) Diagnoses Lumbar spinal stenosis M48.061
--- OUTSIDE RECORDS SUMMARY | 2025-03-24 14:15 | XMS_ITS | Encounter Summary ---
Author Organization [employer] Address [address] [facility] 7t [place] [address] Care Team Providers Care Beef Skinner Name Role Phone Ligia Becerra MD Primary Care Provider [phone]- [phone] Jair Pro MD Unavailable Tim Herrera Unavailable [phone] Trung Slade MD Unavailable [phone] Reason for Visit * Reason Onset Date Comments PT1 10/06/2023 Encounter Details Date Type Department Care Team (Late st Contact Info) Description 10/06/2023 Telephone [facility] MEDICINE [address] [place], [place] [phone] Ligia Becerra MD [address] [place] [address] PT1 Social History Tobacco Use Types Packs/Day [...] 3 PM Visits: 5 per month Address: [address] [place] [address] Facility: N Wheel Chair: no, walker Crate Icer Needed: yes Date: n/a Time: n/a Visits: 5 per month Address: [address] [place] [address] Facility: [facility] Wheel Chair: No, walker Crate Icer Needed: yes documented in this encounter Plan of Treatment Upcoming Encounters Date Type Department Care Team ([facility] Contact Info) Description 04/06/2025 3:15 PM EDT Office Visit [facility] MEDICINE [address] [place] [address] Ligia Becerra MD [address] [place] [address] 07/25/2025 11:00 AM EST Office Visit [facility] OPTOMETRY [address] [place] [address] Britt Zurita OD [address] [place] [address] documented as of this encounter Visit Diagnoses Not on filedocumented in this encounter Additional Health Concerns Assessment Noted Time PHQ-9 Depression Total Score: 18 023 3:56 PM EDT documented as of this encounter Care Teams Beef Skinner Relationship Specialty Start Date End Date Ligia Becerra MD [address] [place] [address] PCP - General Family Medicine 07/22/22 Jair Pro MD [address] [place] [address] Urology 07/24/24 Tim Herrera [address] [place] [address] Neurosurgery 07/24/24 Trung Slade MD [address]rd [place] [address] Gastroenterology 10/19/24 documented as of this encounter
--- OUTSIDE RECORDS SUMMARY | 2025-03-24 14:17 | XMS_ITS | Clinical Summary ---
Author Organization [facility] Address [address] [place] [address] Phone Care Team Providers Care Compressed Yeast Supervisor Name Role Phone Mariam, Ligia CABA Primary Care Provider [phone] Allergies No known active allergies Medications diclofenac (VOLTAREN) 1 % topical gel Apply 4 g topically 4 (four) times a day. 480 g 04/01/20 25 Active Encounters Date Type Department Care Team Description 03/02/2025 10:58 PM EDT - 03/02/2025 11:18 PM EDT Emergency [facility] Emergency [address] [place] [address] Cervical radiculopathy (Primary Dx) Discharge [...] Otherwise, normal examination, without acute findings. Code 64074 -------- FINAL REPORT -------- Dictated By: David Sexton Dictated Date: 03/03/2025 08:31 ET Assigned Physician: David Sexton Reviewed and Electronically Signed By: David Sexton Signed Date: 03/03/2025 08:33 ET Workstation ID: [id number] Transcribed By: Self Edit Transcribed Date: 03/03/2025 [...] joint. Otherwise, normalexamination, without acute findings. Code 63037 -------- FINAL REPORT -------- Dictated By: David Sexton Dictated Date: 03/03/2025 08:31 ET Assigned Physician: David Sexton Reviewed and Electronically Signed By: David Sexton Signed Date: 03/03/2025 08:33 ET Workstation ID: [id number] Transcribed By: Self Edit Transcribed Date: 03/03/2025 08:31 ET Concepción FRANKS IMG XR PROCEDURES Final Result from Last 3 Months Insurance [employer] MEDICARE Member Subscriber Plan / Payer (Ef fective 2024-Present) Name:VON CALLAWAY Relation to Subscriber:Self Name:Von Long Payer ID:[id number] Group ID:[id number] Type:Not on file Address: [address] [place] [address] Care Teams Compressed Yeast Supervisor Relationship Specialty Start Date End Date Mariam, MD Ligia [address] [place] [phone] PCP - General Family Medicine 03/02/25
== END 2025-03-24 13:52 | disposition home or self-care (01) ==
LOC: HO.HNS 13:23
PROVIDERS: PCP Family Medicine; Visit Provider Physician Assistant
DX: M48.061 Spinal stenosis, lumbar region without neurogenic claudication (principal)
CPT/HCPCS: 99024

== ENCOUNTER → 2025-03-24 13:22 | Outpatient (BNVA) | payer OTHER, SELFPAY | PROVIDERS: PCP Family Medicine; Visit Provider Physician Assistant | DX: M48.061 Spinal stenosis, lumbar region without neurogenic claudication (principal) | CPT/HCPCS: 99212 ==

== ENCOUNTER 2025-06-03 16:14 | Outpatient (REF) | payer OTHER, SELFPAY ==
--- OUTSIDE RECORDS SUMMARY | 2025-06-03 11:30 | XMS_ITS | Encounter Summary ---
Author Organization [employer] Address [address] [facility] [address] [place] [address] Care Team Providers Care Tooling Inspector Name Role Phone Ligia Becerra MD Primary Care Provider [phone] Jair Pro MD Unavailable Tim Herrera Unavailable Trung Slade MD Unavailable [phone] Reason for Visit * Reason Comments Follow-up Encounter Details Date Type Department Care Team (Late st Contact Info) Description 06/03/2025 11:30 AM EDT Office Visit [facility] [address], [place] [id number] Ligia Becerra MD [address] [place] [address] Gender dysphoria (Primary Dx); Psychiatric disorder; Bilateral deafness; Encounter for immunization; Encounter for vaccination; Malodorous urine; Cough, unspecified type Social History Tobacco Use Types [...] Answer Date Recorded Patient Health Questionnaire-9 Score 11 04/06/2025 Patient Health Questionnaire-9 Score 11 04/06/2025 Last PHQ-9: Questionnaire Data Not on file 0 04/06/2025 Housing Stability Answer Date Recorded What is your housing situation today? I have jodie hernandez 04/06/[address] you li ve. Do you have problems with any of the following? None of the above 04/06/2025 Food Insecurity Answer Date Recorded Within the past 12 months, y ou worried that your food would run out before you got money to buy more: Never True 04/06/2025 Within the past 12 months,th e food you bought just didn't last and you didn't have enough money to get more: Never True Transportation Answer Date Recorded In the past 12 months, has l ack of transportation kept you from medical appts, meetings, work or from getting things needed for daily living? No 04/06/2025 Utilities Answer Date Recorded In the past 12 months, has t he electric, gas, oil or water company threatened to shut off services in your home? No 04/06/2025 Depression Answer Date Recorded Patient Health Questionnaire-2 Score 2 04/06/2025 Internet Access Answer Date Recorded Internet Access Q1 No 04/06/2025 Internet Access Q2 I do not want or need it 03/12 Sex and Gender Information Value Date Recorded Sex Assigned at Male 06/10/2022 10:16 AM EDT Legal Sex Male 10:16 AM EDT Gender Identity Female 07/25/2022 12:03 PM EST Sexual Orientation Choose not to disclose 2021 10:16 AM EDT documented as of this encounter Last Filed Vital Signs Vital Sign Reading Time Taken Comments Blood Pressure 130/82 06/03/2025 11:46 AM EDT Pulse 88 06/03/2025 11:46 AM EDT Temperature 37.2 C (98.9 F) 06/03/2025 11:46 AM EDT Respiratory Rate 20 06/03/2025 11:46 AM EDT Oxygen Saturation 98% 06/03/2025 11:46 AM EDT Inhaled Oxygen Concentration - - Weight 84.4 kg (186 lb) 06/03/2025 11:46 AM EDT Height - - Body Mass Index 31.93 12/22/2024 2:27 PM EDT documented in this encounter Patient Instructions * Patient Instructions* Ligia Becerra MD - 06/03/2025 11:30 AM EDT Care Team Ligia Becerra MD PCP - General, Family Medicine [phone] Jair Pro MD Urology [phone] Tim Herrera Neurosurgery [phone] Trung Slade MD Gastroenterology [phone] No follow-ups on file. Future Appointments Date Time Provider Department Center 06/13/2025 10:45 AM Ligia Becerra MD [facility] 06/24/2025 11:45 AM Chapo Bender MD [facility] 07/25/2025 11:00 AM Britt Zurita OD [facility] documented in this encounter Miscellaneous Notes * Assessment & Plan Note - Ligia Becerra MD - 06/03/2025 11:30 AM EDT Associated Problem(s): Psychiatric disorder * Assessment & Plan Note - Ligia Becerra MD - 06/03/2025 11:30 AM EDT Associated Problem(s): Deafness * Assessment & Plan Note - Ligia Becerra MD - 06/03/2025 11:30 AM EDT Associated Problem(s): Gender dysphoria -On 09/12/2022 we reviewed risks and benefits [...] not follow up or labs and self discontinued estradiol. She is requesting patches. Minivelle 0.25 twice a week started 05/23/2023 and self discontinued. -she does not have realistic expectations about what her hormones can do in terms of breast development and hair growth. Shared decision making done regarding her inquiring about breast implants. Referred to [facility] multiple times, last 04/06/25. She understands she needs to see therapist and get letter from them for insurance to cover. After letter is obtained we can refer to plastic surgery. documented in this encounter Plan of Treatment Upcoming Encounters Date Type Department Care Team (Late st Contact Info) Description 06/13/2025 10:45 AM EST Office Visit [facility] [address] [place] [id number] Ligia Becerra MD [address] [place] [address] 06/24/2025 11:45 AM EST Office Visit [facility] [address] [place] [address] Chapo Bender MD [address] [place] [address] 07/25/2025 11:00 AM EST Office Visit [facility] [address] [place] [address] TarBritt burks, OD [address] [place] [address] documented as of this encounter Procedures Procedure Name Priority Date/Time Associated Diagnosis Comments URINALYSIS, COMPLETE, WITH REFLEX TO CULTURE Routine 06/03/2025 12:36 PM EDT Malodorous urine documented in this encounter Results * Urinalysis, Complete, with Reflex to Culture (06/03/2025 12:36 PM EDT) Color Urine Yellow [facility] Appearance Urine Clear [facility] PH 6.0 5.0 - 9.0 [facility] Glucose Urine UA Negative Negative mg/dL [facility] Urine Blood Negative Negative [facility] Specific [place] - Urine 1.020 1.005 - 1.025 [facility] Urine Protein Negative Neg-Trace mg/dL [facility] Urine Ketones Negative Negative mg/dL [facility] Nitrite Urine Negative Negative [facility] Leukocyte Esterase Urine Negative Negative [facility] RBC Urine 0-2 0 - 2 /HPF [facility] Urine WBC 0-5 0 - 5 /HPF [facility] Urine Squamous Epithelial Cell 3-5 0 - 2 /HPF [facility] Urine Bacteria None Seen None Seen [facility] Hyaline Casts, Urine 0-2 0 - 2 /LPF [facility] Urine Urine specimen obtained by clean catch procedure / Unknown 06/03/2025 12:36 PM EDT 06/03/2025 4:15 PM EDT Narrative [facility] - 06/03/2025 4:38 PM EDT [id number], Clean Catch Ligia Becerra MD LAB URINE ORDERABLES Final Result Performing Organization Address City/[facility] [address]/[facility] Co de Phone Number [facility] [address] [place] [phone] documented in this encounter Visit Diagnoses Diagnosis Gender dysphoria- Primary Psychiatric disorder Unspecified nonpsychotic mental disorder Bilateral deafness Unspecified hearing loss Encounter for immunization Encounter for vaccination Malodorous urine Cough, unspecified type documented in this encounter Additional Health Concerns Assessment Noted Time PHQ-9 Depression Total Score: 11 04/06/ 025 3:12 PM EDT documented as of this encounter Care Teams Tooling Inspector Relationship Specialty Start Date End Date Ligia Becerra MD [address] [place] [id number] PCP - General Family Medicine 07/22/22 Jair Pro MD [address] [place] [address] Urology 07/24/24 Tim Herrera [address] [place] [address] Neurosurgery 07/24/24 Trung Slade MD [address] [place] [address] Gastroenterology 10/19/24 Chucho Sexton [facility] Case Management 06/03/25 documented as of this encounter
[2025-06-03 16:30] LABS: Appearance Urine Clear; Glucose Urine UA Negative (Negative); PH 6.0 (5.0-9.0); Specific Gravity - Urine 1.020 (1.005-1.025)
--- OUTSIDE RECORDS SUMMARY | 2025-06-03 17:15 | XMS_ITS | Clinical Summary ---
Author Organization [employer] Address [address] [facility] [address] [place] [address] Care Team Providers Care Centrifugal Extractor Operator Name Role Phone Ligia Becerra MD Primary Care Provider [phone] Jair Pro MD Unavailable [phone] Tim Nolen Unavailable [phone] Trung Slade MD Unavailable [phone] Allergies No known active allergies Medications * This document contains information received from the source organization and may not represent a complete record from that organization. pantoprazole (ProtoNix) 40 MG EC tabletIndicati ons:Abdominal pain, unspecified abdominal location 07/13/20 24 Active terazosin (Hytrin) 2 MG capsuleIndicat ions:Benign prostatic hyperplasia with urinary frequency Take 2 mg by mouth at bedtime. 03/11/20 24 Active tamsulosin (Flomax) 0.4 MG 24 hr capsuleIndicat ions:Benign prostatic hyperplasia with urinary frequency Take 1 capsule (0.4 mg) by mouth Once per day. 90 capsule 3 10/20/19 25 Active ketoconazole (NIZOral) 2 % creamIndicatio ns:Dysuria,Int ertrigo of genital labia Apply topically Once per day. 40 g 11/23/19 25 Active lidocaine (Lidoderm) 5 % patchIndicatio ns:Chronic bilateral thoracic back pain Apply 1 patch topically Once per day. Remove & discard patch within 12 hours or as directed by . 15 patch 2 03/10/20 25 Active amoxicillin-cl avulanate (Augmentin) 875-125 MG tablet Take 1 tablet by mouth 2 times daily for 10 days. 20 tablet 06/03/20 25 Active traZODone (Desyrel) 100 MG tabletIndicati ons:Insomnia, unspecified type Take 1 tablet (100 mg) by mouth at bedtime. 30 tablet 11/26/19 25 Discontinued(Me d list cleanup (will not trigger notification to Pharmacy)) fluticasone (Flonase) 50 MCG/ACT nasal spray Administer 1 spray into each nostril Once per day. 16 g 12/23/19 25 Discontinued(Me d list cleanup (will not trigger notification to Pharmacy)) diphenhydrAMIN E (BENADryl) 25 MG capsule Take 1 capsule (25 mg) by mouth if needed at bedtime for allergies (cough) for up to 14 days. 30 capsule 12/23/19 Discontinued(Me d list cleanup (will not trigger notification to Pharmacy)) albuterol 108 (90 Base) MCG/ACT inhalerIndicat ions:Cough in adult patient Inhale 2 puffs every 6 (six) hours if needed for wheezing. 18 g 1 01/01/20 Discontinued(Me d list cleanup (will not trigger notification to Pharmacy)) Ketotifen Fumarate 0.035 % solutionIndica tions:Itchy eyes Administer 1 drop into affected eye(s) if needed in the morning and at bedtime (eye redness, itching). 10 mL 01/01/20 025 Discontinued(Me d list cleanup (will not trigger notification to Pharmacy)) amoxicillin (Amoxil) 500 MG capsuleIndicat ions:Left otitis media, unspecified otitis media type Take 1 tab po bid for 10 days 20 capsule 04/06/20 25 025 Discontinued(Me d list cleanup (will not trigger notification to Pharmacy)) ibuprofen 600 MG tablet Take 1 tablet (600 mg) by mouth 3 times daily for 15 days. 45 tablet 05/06/20 25 guaiFENesin (Mucinex) 600 MG 12 hr tablet Take 2 tablets (1,200 mg) by mouth 2 times daily for 10 days. Do not crush, chew, or split. 40 tablet 05/06/20 025 Active Problems Patient Care Coordination No te Formatting of this note migh t be different from the original. 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 + Flonase x 1 week Rest (sleep at least 8 hours a night). Hydrate with plenty of water (avoid caffeine and alcohol). Can take Benadryl nightly for 5 to 7 days for cough and nasal congestion . Prescription for sucralfate for epigastric pain that is most likely related to swallowing upper respiratory secretions and persistent cough use saline nose drops to loosen mucus Take Acetaminophen (Tylenol )/Ibuprofen as needed to reduce fever, headache, body aches or discomfort Gargle with salt water and use throat sprays/lozenges for throat pain. Use heated, humidified air. If you do not have a humidifier, take hot showers. Cover coughs and sneezes using the crook of your elbow. If you have a fever, stay home and away from others (self isolation) until fever-free for 72 hours (temperature should be less than 100 F without medication). Vaginal discharge 11/22/2024 Dysuria 11/22/2024 Bumps on [...] Patient with previous Psychological assessment by Wendy Roass PhD Dx adjustment disorder and antisocial personality [...] Patient will benefit from follow through with [facility] services and recommendations as well as continued calls to the [facility]. At this time Jacob Angeles meets criteria [...] Patient goal is to follow through with [facility] services and recommendations 3. Behavioral Recommendations a. OP therapy with [facility] b. Calling the [facility] daily Assessment & Plan (04/15/2023 1:06 PM EDT): Assessment: Patient with previous Psychological assessment [...] Patient will benefit from crisis evaluation with [facility] and care home placment. At this time Jacob Angeles meets criteria for Visit Diagnoses: Problem List Items Addressed This Visit Other Adjustment disorder with mixed anxiety and depressed mood Patient ready to address current needs Yes Strengths- Ashley is able to advocate for her wants and needs. She is in the contemplation stage of change. PLAN: 1. Follow up with [facility]: Recommended for follow-up: As needed 2. Patient goal is to engage in crisis evaluation, OP therapy, psychiatry 3. Behavioral Recommendations a. [facility] b. Call [facility] daily at 9:00 AM for intake Assessment [...] cardiology. Other specified health status 12/19/2022 Overview (04/07/2025): -next comprehensive annual evaluation due after 04/06/26 -eye care facilitated by [facility] -dental home is [facility] -Healthcare proxy paperwork given 08/22/23, filed 03/18/24 Assessment & Plan (04/07/2025 11:03 AM EDT): -next comprehensive annual evaluation due after 03/18/26 -eye care facilitated by [facility] -dental home is [facility] -Healthcare proxy paperwork given 08/22/23, filed 03/18/24 Assessment & Plan (03/18/2024 11:39 AM EDT): -next PE due after 03/18/25 -eye care facilitated by [facility] -dental home is [facility] -Healthcare proxy [...] GI 09/17/21. I reached out to her grant coordinator Ana Maria to assist her in following up. Class 2 severe obesity due t o excess calories with serious comorbidity in adult, unspecified BMI 07/29/2022 Assessment & Plan (04/07/2025 11:03 AM EDT): Discussed weight, diet, exercise with patient in relation to health conditions. Used motivational interviewing to illicit change talk and established initial goals with patient. Orders: Hemoglobin A1c; Future Assessment & Plan (10/28/2022 10:36 AM EDT): [...] in the future. Gender dysphoria 07/25/2022 Overview (06/03/2025): -On 09/12/2022 we reviewed risks and benefits [...] her inquiring about breast implants. Referred to [email or web address] multiple times, last 04/06/25. She understands she needs to see therapist and get letter from them for insurance to cover. After letter is obtained we can refer to plastic surgery. Assessment & Plan (06/03/2025 11:57 AM EDT): -On 09/12/2022 we reviewed risks [...] her inquiring about breast implants. Referred to [email or web address] multiple times, last 8/27/25. She understands she needs to see therapist and get letter from them for insurance to cover. After letter is obtained we can refer to plastic surgery. Assessment & Plan (11/19/2023 4:14 PM EDT): [...] EST): I will be calling correctional case records supervisor to discuss Pts option. Pt is interested in breast augmentation. She knows she needs a thereapist. Discussed options with Ajit Rodrigez. Assessment & Plan (09/12/2022 2:28 PM EST): Start spironolactone 100mg once a day, and estradiol 2mg twice a day. Continue to try to manage expectations. Personality disorder (CMS/HCC) 07/25/2022 Overview (05/23/2023): -psychological assessment with Wendy [...] when offering services. -Team meeting pt and customer development representative from safety, behavior health, case managment, viability and myself on 05/23/2023 done to reinforce which services to use when seeking assistance and setting up behavior expatiation when in the clinic. -[facility] ([facility]) BOX TOE CUTTER [phone] Assessment & Plan (04/07/2025 11:03 AM EDT): psychological assessment with Wendy Rosas, PhD. [...] when offering services. -Team meeting pt and customer development representative from safety, behavior health, case managment, viability and myself on 05/23/2023 done to reinforce which services to use when seeking assistance and setting up behavior expatiation when in the clinic. -[facility] ([facility]) BOX TOE CUTTER [phone] Assessment & Plan (11/19/2023 4:15 PM EDT): [...] when offering services. -Team meeting pt and customer development representative from safety, behavior health, case managment, viability and myself on 05/23/2023 done to reinforce which services to use when seeking assistance and setting up behavior expatiation when in the clinic. -[facility] ([facility]) BOX TOE CUTTER [phone] Assessment & Plan (08/22/2023 9:06 AM EST): [...] when offering services. -Team meeting pt and customer development representative from safety, behavior health, case managment, viability and myself on 05/23/2023 done to reinforce which services to use when seeking assistance and setting up behavior expatiation when in the clinic. -[facility] ([facility]) BOX TOE CUTTER [phone] Assessment & Plan (08/13/2023 9:50 AM EST): [...] when offering services. -Team meeting pt and customer development representative from safety, behavior health, case managment, viability and myself on 05/23/2023 done to reinforce which services to use when seeking assistance and setting up behavior expatiation when in the clinic. -[facility] ([facility]) BOX TOE CUTTER [phone] Assessment & Plan (05/23/2023 1:14 PM EDT): [...] when offering services. -Team meeting pt and customer development representative from safety, behavior health, case managment, viability and myself on 05/23/2023 done to reinforce which services to use when seeking assistance and setting up behavior expatiation when in the clinic. -[facility] ([facility]) BOX TOE CUTTER [phone] Assessment & Plan (02/05/2023 11:15 AM EDT): [...] interviewing when offering services. -[facility] with Jose Rachel Lux. BOX TOE CUTTER , text . Assessment & Plan (10/28/2022 [...] when offering services. Psychiatric disorder 07/25/2022 Overview (06/03/2025): -psychological assessment with Wendy Rosas, PhD. Clinical [...] recommending using motivational interviewing when offering services. -referred to behavior health multiple times, last 04/06/25 Assessment & Plan (06/03/2025 11:57 AM EDT): Assessment & Plan (11/19/2023 4:16 PM EDT): [...] Chronic bilateral thoracic back pain 07/25/2022 Overview (03/24/2025): Symptoms severe. This patient is suffering from [...] prescribed by [facility] but pt did not draft roller picker. -She returned to pain management 06/02/2023 and was referred to neurosurgery -seen by Dr. Tim Nolen MD, PhD , Spine Fellowship Trained Neurosurgeon, Director, [facility] 06/25/2023 -Pt offered a multilevel decompression [...] to MRI but couldn't reach the pt. -s/p L4-L5 decompression 01/06/25 -MRI 03/11/25 IMPRESSION: L4-5: Postoperative changes are present related to posterior decompression surgery. There is hyperenhancement of the paraspinal soft tissues and posterior epidural space. There is a small fluid collection in the interspinous space and in the deep subcutaneous soft tissues not highly suggestive of an abscess. There is improved but persistent mild spinal stenosis and subarticular zone narrowing. Moderate to severe right and moderate left foraminal narrowing persists. -note from Dr. Hall office 03/25/25 His postoperative MRI shows excellent decompression at L4-5. There is still some marginal stenosis at L2-3 but nothing profound. I explained to him with the help of painter helper sign [id number] that I do not believe there is anything more we can do for him. Despite excellent decompression, there has been no improvement in symptoms. We could be dealing with a whole different diagnosis altogether, something like polyneuropathy. It is also possible that this is just longstanding nerve compression that did not improve with surgery and there is a small percentage of patients for which a spinal cord stimulator can be helpful in this circumstance. I will send the patient for an EMG to see if we can get some clarification on this. Assessment & Plan (04/07/2025 11:03 AM EDT): Symptoms severe. This patient is [...] prescribed by [facility] but pt did not draft roller picker. -She returned to pain management 06/02/2023 and was referred to neurosurgery -seen by Dr. Tim Nolen MD, PhD , Spine Fellowship Trained Neurosurgeon, Director, [facility] 06/25/2023 -Pt offered a multilevel decompression [...] to MRI but couldn't reach the pt. -referred back to PT 04/06/25 Orders: Referral to Physical Therapy; Future Assessment & Plan (10/19/2024 4:02 PM EDT): [...] prescribed by [facility] but pt did not draft roller picker. -She returned to pain management 06/02/2023 and was referred to neurosurgery -seen by Dr. Tim Nolen MD, PhD , Spine Fellowship Trained Neurosurgeon, Director, [facility] 06/25/2023 -Pt offered a multilevel decompression [...] prescribed by [facility] but pt did not draft roller picker. -She returned to pain management 06/02/2023 and was referred to neurosurgery -seen by Dr. Tim Nolen MD, PhD , Spine Fellowship Trained Neurosurgeon, Director, [facility] -Ptoffered a multilevel decompression of the [...] prescribed by [facility] but pt did not draft roller picker. -She returned to pain management 06/02/2023 and was referred to neurosurgery -seen by Dr. Tim Nolen MD, PhD , Spine Fellowship Trained Neurosurgeon, Director, [facility] -Ptoffered a multilevel decompression of the [...] prescribed by [facility] but pt did not draft roller picker. -She returned to pain management 06/02/2023 and was referred to neurosurgery -seen by Dr. Tim Nolen MD, PhD , Spine Fellowship Trained Neurosurgeon, Director, [facility] -Ptoffered a multilevel decompression of the [...] prescribed by [facility] but pt did not draft roller picker. -She returned to pain management 06/02/2023 and was referred to neurosurgery -seen by Dr. Tim Nolen MD, PhD , Spine Fellowship Trained Neurosurgeon, Director, [facility] -Ptoffered a multilevel decompression of the [...] prescribed by [facility] but pt did not draft roller picker. -She returned to pain management 06/02/2023 and was referred to neurosurgery -seen by Dr. Tim Nolen MD, PhD , Spine Fellowship Trained Neurosurgeon, Director, [facility] -Ptoffered a multilevel decompression of the [...] prescribed by [facility] but pt did not draft roller picker. -She returned to pain management 06/02/2023 and was referred to neurosurgery -seen by Dr. Tim Nolen MD, PhD , Spine Fellowship Trained Neurosurgeon, Director, [facility] -Ptoffered a multilevel decompression of the [...] proscribed cyclobenzaprine. I reached out to her grant coordinator Ana Maria to assist her in following [...] scheduled or earlier prn. Avitaminosis D 11/27/2021 Assessment & Plan (04/07/2025 11:03 AM EDT): Orders: Vitamin D, 25-Hydroxy, Total, Immunoassay; Future Hepatitis B core antibody positive 11/27/2021 Overview [...] modifications -Continue current medications Assessment & Plan (04/07/2025 11:03 AM EDT): -Blood pressure is at goal -Continue lifestyle modifications -Continue current medications Orders: Basic Metabolic Panel; Future Assessment & Plan (05/19/2024 3:19 PM EDT): [...] BP is well controlled. Deafness 12/30/2014 Overview (06/03/2025): Audiology appointment 03/02/2023 -[facility] customer development representative Elizabeth ([facility]) Assessment & Plan (06/03/2025 11:57 AM EDT): Assessment & Plan (05/19/2024 3:18 PM EDT): Audiology appointment 03/02/2023. -[facility] customer development representative Nany ([facility]) BOX TOE CUTTER [phone] Assessment & Plan (03/18/2024 11:35 AM EDT): Audiology appointment 03/02/2023. -[facility] customer development representative Nany ([facility]) BOX TOE CUTTER [phone] Assessment & Plan (11/19/2023 4:14 PM EDT): Audiology appointment 03/02/2023. -[facility] customer development representative Nany ([facility]) BOX TOE CUTTER [phone] Assessment & Plan (08/22/2023 9:06 AM EST): Audiology appointment 03/02/2023. -[facility] customer development representative Nany ([facility]) BOX TOE CUTTER [phone] Assessment & Plan (08/13/2023 9:48 AM EST): Audiology appointment 03/02/2023. -[facility] customer development representative N[facility] ([facility]) BOX TOE CUTTER [phone] Assessment & Plan (05/23/2023 1:16 PM EDT): Audiology appointment 03/02/2023. -[facility] customer development representative [facility] ([facility]) BOX TOE CUTTER [phone] Assessment & Plan (02/05/2023 11:14 AM EDT): Audiology appointment 03/02/2023. [facility] with Jose Rachel Berrios BOX TOE CUTTER , text . Assessment & Plan (12/12/2022 [...] for appointment. I have asked her [employer] grant coordinator to assist her. -CT 12/2021 Gallbladder surgically [...] for appointment. I have asked her [facility] grant coordinator to assist her. -CT 12/2021 Gallbladder surgically [...] for appointment. I have asked her [employer] grant coordinator to assist her. -CT 12/2021 Gallbladder surgically [...] for appointment. I have asked her [employer] grant coordinator to assist her. -CT 12/2021 Gallbladder surgically [...] for appointment. I have asked her [employer] grant coordinator to assist her. -CT 12/2021 Gallbladder surgically [...] for appointment. I have asked her [employer] grant coordinator to assist her. -CT 12/2021 Gallbladder surgically [...] for appointment. I have asked her [employer] grant coordinator to assist her. -CT 12/2021 Gallbladder surgically [...] for appointment. I have asked her [facility] grant coordinator to assist her. -CT 12/2021 COMPARISON: Multiple priors most recent CT abdomen pelvis 08/25/2021. FINDINGS: LUNG BASES: Unchanged linear calcification and/or scarring in the posterior right lower lobe. Visualized lung bases and mediastinum are otherwise normal. No pleural effusion.LIVER, GALLBLADDER, BILIARY TREE: The non-contrast liver is normal in size, shape, and attenuation. No focal hepatic lesion or biliary ductal dilatation is present. Gallbladder surgically absent. PANCREAS: Normal; no mass or surrounding fluid. SPLEEN: Normal size. No focal lesion. ADRENAL GLANDS: Normal; no mass. KIDNEYS AND URETERS: The kidneys are normal in size, shape, and attenuation. No hydronephrosis, hydroureter, or calculi seen. Nonspecific bilateral perinephric stranding. BLADDER: No focal mass or wall thickening seen. No bladder calculi. GASTROINTESTINAL TRACT: Stomach and small bowel non-dilated. No colonic wall thickening or pericolonic inflammatory changes. Normal appendix. ABDOMINAL WALL: Bilateral fat-containing inguinal hernias. LYMPHOVASCULAR STRUCTURES: No lymphadenopathy. The aorta is [...] and financial insecurity. Patient will benefit from SDVT referral and OP therapy. At this time [...] 07/29/2022 Vertigo 01/29/2020 10/28/2022 Acute respiratory failure wi th hypoxia ([facility]) 04/16/2019 07/29/2022 Anxiety and depression 04/16/201904/07 Dyspnea 04/16/2019 07/29/2022 Sepsis ([facility]) 04/16/2019 07/29/2022 Urinary tract obstruction 03/21/2017 Gastroesophageal reflux dise ase without esophagitis 12/30/2014 07/29/2022 Gall stone 09/13/2014 07/25/2022 Overview (07/25/2022): Had Laparoscopic Cholycystectomy done 10/04/[address] Jj Brandon Gender identity disorder 06/03/201209/2022 Hearing loss 06/03/2012 07/29/2022 Encounters Date Type Department Care Team Description 06/03/2025 11:30 AM EDT Office Visit [facility] [address] [place] [phone] Ligia Becerra MD Gender dysphoria (Primary Dx); Psychiatric disorder; Bilateral deafness; Encounter for immunization; Encounter for vaccination; Malodorous urine; Cough, unspecified type 06/03/2025 Telephone [facility] [address] [place] [phone] Ligia Becerra MD Call Back Request; Medication Question 06/03/2025 Travel 06/03/2025 Telephone [facility] [address] [place] [phone] Ligia Becerra MD 06/01/[address] [address] Ligia Becerra MD Call Back Request; chart prep 05/06/2025 3:00 PM EDT Office Visit [facility] [address] [place] [phone] Ron Caballero MD Congestion of upper airway (Primary Dx) 05/06/2025 3:00 PM EDT Immunization [address] [address] Encounter for immunization 05/06/2025 Travel 04/25/[address] [address] Ligia Becerra MD Call Back Request 04/18/[address] [address] Ligia Becerra MD Referral 04/06/2025 3:15 PM EDT Office Visit [address] [address] Ligia Becerra MD Left otitis media, unspecified otitis media type (Primary Dx); Chronic bilateral thoracic back pain; Primary hypertension; Dietary counseling; Exercise counseling; Personality disorder ([facility]); Class 2 severe obesity due to excess calories with serious comorbidity in adult, unspecified BMI (CMS/HCC); Avitaminosis D; Screening cholesterol level; Routine screening for STI (sexually transmitted infection); Positive depression screening; Encounter for immunization; Other specified health status 04/06/2025 Travel 04/05/[address] [address] Ligia Becerra MD CHART PREP 04/04/[address] [address] Ligia Becerra MD Nurse Triage 03/21/2025 1:00 PM EDT Office Visit [facility] [address] [place] [phone] Juju Hodgson Encounter for dental examination (Primary Dx); Dental calculus; Periodontal disease; Dental plaque; Halitosis 03/10/2025 Orders Only [facility] [address] [place] [phone] Ligia Becerra MD Chronic bilateral thoracic back pain (Primary Dx) 03/07/[address] [address] Ligia Becerra MD Med Refill from Last 3 Months Immunizations Immunization Administration Dates Next Due Hep A, Adult 04/06/2025 HepB-CpG 05/06/2025,04/06/2025 Influenza High-dose Quadriva lent Preservative Free 05/23/2023 Influenza injectable quadriv alent IIV4 with preservative 06/28/2021,05/16/2021,03/25/2020 Influenza injectable quadriv alent preservative free 07/29/2022,06/22/2015 Influenza, High Dose Seasona l, Preservative Free 06/03/2025,05/14/2024 Influenza, IIV3, injectable 05/12/2013,0 09/03/2012,06/07/2011,04/20 Influenza, Split (incl. georgette fied surface antigen) 06/03/2012 Moderna Covid-19 Vaccine 12+ 12/08/2020 Pfizer Covid-19 Vaccine 12+ 06/03/2025,,08/14/2023 Pfizer Covid-19 Vaccine 12+ Bivalent 06/24/2022 Pneumococcal [...] (186 lb) 06/03/2025 11:46 AM EDT Height 162.6 cm (5' 4 ) 12/22/2024 2:27 PM EDT Body Mass Index 31.93 12/22/2024 2:27 PM EDT Plan of Treatment Upcoming Encounters Date Type Department Care Team (Late st Contact Info) Description 06/13/2025 10:45 AM EST Office Visit [facility] [address] [place] [address] Ligia Becerra MD [address] [place] [address] 06/24/2025 11:45 AM EST Office Visit [facility] [address] [place] [address] Chapo Bender MD [address] [place] [address] 07/25/2025 11:00 AM EST Office Visit [facility] [address] [place] [address] Britt Zurita, OD [address] [place] [address] Health Maintenance Due Date Last Done Comments Anal Pap 1958 CT Colonography 1958 FIT DNA/Cologuard 1960 FIT 1960 FOBT 1960 Sigmoidoscopy 1960 Dental X-Ray: Full Mouth 05/23/2025 05/22/2022 Dental Oral Exam 09/22/2025 03/21/2025, 04/08/2024 Dental Prophylaxis 09/22/2025 03/21/2025, 04/08/2024 Depression Monitoring 10/07/2025 04/06/2025, 025 Hepatitis A Vaccines (2 of 2 - Risk 2-dose series) 10/07/2025 04/06/2025 Dental X-Ray: Bitewings 03/22/2026 03/21/20 25, 04/08/2024, 11/13/2022 SDOH Screening 04/06/2026 04/06/2025 Alcohol/Substance Use Screening 06/03/2026 06/03/2025 Tobacco Screening 06/03/2026 06/03/2025 Lipid Panel 07/29/2027 07/29/2022 Colonoscopy 10/20/2027 10/19/2024, 06/12, 12/01/2009 Colorectal Cancer Screening 10/20/2027 DTaP/Tdap/Td Vaccines (3 - Td or Tdap) 08/15/2032 08/15/2022, 06/22/2015, 09/05/2012 Hepatitis C Screening Completed 07/29/2022 Pneumococcal Vaccine: 50+ Years Completed 05/23/2023, 09/03/2012 RSV Patients and Patients Aged 60 years or older Completed 08/22/2023 Zoster Vaccines Completed 04/06/2024, 08/22/2023 Hepatitis B Vaccines Completed 05/06/2025, 04/06/20 25 COVID-19 Vaccine Completed 06/03/2025, 04/2024, 08/14/2023, Additional history exists Influenza Vaccine Completed 06/03/2025, , 05/23/2023, Additional history exists HIB Vaccines Aged Out [...] Routine 06/03/2025 12:36 PM EDT Malodorous urine PERIODIC ORAL EVALUATION - ESTABLISHED PATIENT Routine 03/21/2025 1:00 PM EDT Encounter for dental examination Dental calculus Periodontal disease Dental plaque Halitosis CASE PRESENTATION, DETAILED AND EXTENSIVE TREATMENT PLANNING Routine 03/21/2025 1:00 PM EDT Encounter for dental examination Dental calculus Periodontal disease Dental plaque Halitosis PROPHYLAXIS - ADULT Routine 03/21/2025 1 :00 PM EDT Encounter for dental examination Dental calculus Periodontal disease Dental plaque Halitosis BITEWINGS - 4 RADIOGRAPHIC IMAGES Routine 03/21/2025 1:00 PM EDT Encounter for dental examination Dental calculus Periodontal disease Dental plaque Halitosis INTRAORAL - PERIAPICAL FIRST RADIOGRAPHIC IMAGE Routine 03/21/2025 1:00 PM EDT Encounter for dental examination Dental calculus Periodontal disease Dental plaque Halitosis INTRAORAL - PERIAPICAL EACH ADDITIONAL RADIOGRAPHIC IMAGE Routine 03/21/2025 1:00 PM EDT Encounter for dental examination Dental calculus Periodontal disease Dental plaque Halitosis MR LUMBAR SPINE W AND WO CONTRAST Routine 03/11/2025 11:35 AM EDT HM COLONOSCOPY Routine 10/19/2024 7:27 PM EDT HEPATITIS C AB W/REFL TO HCV RNA, QN, PCR Routine 07/29/2022 11:16 AM EST Hepatitis B core antibody positive Routine screening for STI (sexually transmitted infection) LIPID PANEL, STANDARD Routine 07/29/2022 11:16 AM EST Primary hypertension from Last 3 Months or Most Recently Relevant to Health Maintenance Results * Urinalysis, Complete, with Reflex to Culture (06/03/2025 12:36 PM EDT) Color Urine Yellow [facility] Appearance Urine Clear [facility] PH 6.0 5.0 - 9.0 [facility] Glucose Urine UA Negative Negative mg/dL [facility] Urine Blood Negative Negative [facility] Specific [place] - Urine 1.020 1.005 - 1.025 [facility] Urine Protein Negative Neg-Trace mg/dL [facility] Urine Ketones Negative Negative mg/dL [facility] Nitrite Urine Negative Negative [facility] Leukocyte Esterase Urine Negative Negative [facility] RBC Urine 0-2 0 - 2 /HPF [facility] Urine WBC 0-5 0 - 5 /HPF [facility] Urine Squamous Epithelial Cell 3-5 0 - 2 /HPF [facility] Urine Bacteria None Seen None Seen [facility] Hyaline Casts, Urine 0-2 0 - 2 /LPF [facility] Urine Urine specimen obtained by clean catch procedure / Unknown 06/03/2025 12:36 PM EDT 06/03/2025 4:15 PM EDT Narrative [facility] - 06/03/2025 4:38 PM EDT [id number], Clean Catch Ligia Becerra MD LAB URINE ORDERABLES Final Result [facility] [address] [place] [phone] * MR Lumbar Spine w/ and w/o Contrast (03/11/2025 11:35 AM EDT) Anatomical Region Laterality Modality Spine, L-spine Magnetic Resonan ce 03/11/2025 11:3 5 AM EDT Narrative 03/11/2025 12:50 PM EDT [address] [address] Magnetic Resonance Report Signed Patient: Jacob Long MR#: [id number] : 1960 Acct:[id number] Age/Sex: 65 / M ADM Date: 03/11/25 Loc: HO.MRI Attending Dr: Martir FRANKS Ordering Physician: Martir Wan Date of Service: 03/11/25 Procedure(s): MR lumbar spine wo/w con Accession Number(s): [id number] cc: Martir Wan; Ligia Becerra MD EXAM: MRI lumbar spine without and with IV contrast TECHNIQUE: Multiplanar multisequence imaging was performed through the lumbar spine without and with contrast. INDICATION: M48.061 - Spinal stenosis, lumbar region without neurogenic claudication, Persistent left leg pain after surgery CONTRAST: 8.5 mL Gadavist PRIOR: X-ray November 26, 2024 and MRI November 08, 2024 FINDINGS: 5 non-rib bearing lumbar segments are present on x-ray. There is a small vertebral hemangioma in posterior T11 vertebral body. Modic 2 signal changes present posterior L2-3, and diffusely across L4-5. There is mixed Modic 1 and 3 signal at L5-S1. Since prior examination, there are new postsurgical changes with postoperative fluid in the interspinous placed between L4-5, and angling obliquely upward through the plane of the deep subcutaneous soft tissues fluid collection has flat and concave margins not suggestive of hematoma or abscess. There is also edema in the paraspinal soft tissues between mid L3 and sacrum and subcutaneous adipose tissues posterior to the lumbar spine. With contrast, there is a reticulated pattern of enhancement of the edematous soft tissues. The termination of conus medullaris is within normal limits at the level of mid L1. Alignment: There is subtle retrolisthesis throughout all levels of the lumbar spine. T12-L1: There is mild loss disc height and disc desiccation with circumferential broad-based disc bulge and moderate facet arthropathy resulting in mild spinal stenosis and moderate left foraminal narrowing similar to the prior. L1-L2: There is moderate loss of disc height and circumferential broad-based disc bulge. There is moderate facet arthropathy and trace fluid in the right facet joint. There is borderline mild spinal stenosis without foraminal narrowing. Unchanged. L2-L3: There is mild loss disc height and circumferential broad-based disc bulge and left greater than right focal disc extrusion. There is mild to moderate facet hypertrophy. There is moderate spinal stenosis and mild to moderate bilateral foraminal narrowing that appears mildly improved. L3-L4: There is mild loss disc height and circumferential broad-based disc bulge and broad posterior disc extrusion with moderate facet arthropathy resulting in mild spinal stenosis and moderate foraminal narrowing, greater on the prior, unchanged. L4-L5: Postsurgical changes have been performed with posterior decompression. There is severe loss of disc height and circumferential broad-based disc bulge with broad posterior disc protrusion and moderate facet arthropathy resulting in mild spinal stenosis, improved from the prior. There is persistent encroachment of bilateral subarticular zones. There is moderate to severe right and moderate left foraminal narrowing, unchanged. Disc contacts right L4 nerve root in the far lateral zone. There is hyperenhancement of the postoperative bed from the posterior epidural space to the fascia overlying the paraspinal musculature. There is also small fluid collection in the interspinous space. L5-S1: There is moderate severe loss of disc height and circumferential broad-based disc bulge with moderate facet arthropathy. Disc minimally contacts the thecal sac without causing spinal stenosis. There is moderate bilateral foraminal narrowing similar to the prior. This contacts L5 nerve roots in the far lateral zone, left greater than right. MR/MR lumbar spine wo/w con IMPRESSION: L4-5: Postoperative changes are present related to posterior decompression surgery. There is hyperenhancement of the paraspinal soft tissues and posterior epidural space. There is a small fluid collection in the interspinous space and in the deep subcutaneous soft tissues not highly suggestive of an abscess. There is improved but persistent mild spinal stenosis and subarticular zone narrowing. Moderate to severe right and moderate left foraminal narrowing persists. Other levels are essentially unchanged. Electronically signed by: Hunter Mcmanus MD 03/11/2025 12:47 PM EDT Dictated By: Hunter Mcmanus MD Signed By: <Electronically signed by Hunter Mcmanus MD in OV> 03/11/25 1247 DD/ 1135 TD/TT: 03/11/25 1210 Medical Lab Scientist: Procedure Note Donotuseinterpreter, Image - 03/11/2025 [place] [address] Magnetic Resonance Report Signed Patient: Jacob Long#: [id number] : 8Acct:[id number] Age/Sex: 65 / MADM Date: 03/11/25 Loc: HO.MRI Attending Dr: Martir FRANKS Ordering Physician: Martir Wan Date of Service: 03/11/25 Procedure(s): MR lumbar spine wo/w con Accession Number(s): [id number] cc: Martir Wan; Ligia Becerra MD EXAM: MRI lumbar spine without and with IV contrast TECHNIQUE: Multiplanar multisequence imaging was performed through the lumbar spine without and with contrast. INDICATION: M48.061 - Spinal stenosis, lumbar region without neurogenic claudication, Persistent left leg pain after surgery CONTRAST: 8.5 mL Gadavist PRIOR: X-ray November 26, 2024 and MRI November 08, 2024 FINDINGS: 5 non-rib bearing lumbar segments are present on x-ray. There is a small vertebral hemangioma in posterior T11 vertebral body. Modic 2 signal changes present posterior L2-3, and diffusely across L4-5. There is mixed Modic 1 and 3 signal at L5-S1. Since prior examination, there are new postsurgical changes with postoperative fluid in the interspinous placed between L4-5, and angling obliquely upward through the plane of the deep subcutaneous soft tissues fluid collection has flat and concave margins not suggestive of hematoma or abscess. There is also edema in the paraspinal soft tissues between mid L3 and sacrum and subcutaneous adipose tissues posterior to the lumbar spine. With contrast, there is a reticulated pattern of enhancement of the edematous soft tissues. The termination of conus medullaris is within normal limits at the level of mid L1. Alignment: There is subtle retrolisthesis throughout all levels of the lumbar spine. T12-L1: There is mild loss disc height and disc desiccation with circumferential broad-based disc bulge and moderate facet arthropathy resulting in mild spinal stenosis and moderate left foraminal narrowing similar to the prior. L1-L2: There is moderate loss of disc height and circumferential broad-based disc bulge. There is moderate facet arthropathy and trace fluid in the right facet joint. There is borderline mild spinal stenosis without foraminal narrowing. Unchanged. L2-L3: There is mild loss disc height and circumferential broad-based disc bulge and left greater than right focal disc extrusion. There is mild to moderate facet hypertrophy. There is moderate spinal stenosis and mild to moderate bilateral foraminal narrowing that appears mildly improved. L3-L4: There is mild loss disc height and circumferential broad-based disc bulge and broad posterior disc extrusion with moderate facet arthropathy resulting in mild spinal stenosis and moderate foraminal narrowing, greater on the prior, unchanged. L4-L5: Postsurgical changes have been performed with posterior decompression. There is severe loss of disc height and circumferential broad-based disc bulge with broad posterior disc protrusion and moderate facet arthropathy resulting in mild spinal stenosis, improved from the prior. There is persistent encroachment of bilateral subarticular zones. There is moderate to severe right and moderate left foraminal narrowing, unchanged. Disc contacts right L4 nerve root in the far lateral zone. There is hyperenhancement of the postoperative bed from the posterior epidural space to the fascia overlying the paraspinal musculature. There is also small fluid collection in the interspinous space. L5-S1: There is moderate severe loss of disc height and circumferential broad-based disc bulge with moderate facet arthropathy. Disc minimally contacts the thecal sac without causing spinal stenosis. There is moderate bilateral foraminal narrowing similar to the prior. This contacts L5 nerve roots in the far lateral zone, left greater than right. MR/MR lumbar spine wo/w con IMPRESSION: L4-5: Postoperative changes are present related to posterior decompression surgery. There is hyperenhancement of the paraspinal soft tissues and posterior epidural space. There is a small fluid collection in the interspinous space and in the deep subcutaneous soft tissues not highly suggestive of an abscess. There is improved but persistent mild spinal stenosis and subarticular zone narrowing. Moderate to severe right and moderate left foraminal narrowing persists. Other levels are essentially unchanged. Electronically signed by: Hunter Mcmanus MD 03/11/2025 12:47 PM EDT RP Dictated By: Hunter Mcmanus MD Signed By: <Electronically signed by Hunter Mcmanus MD in OV> 03/11/25 1247 DD/ 1135 TD/TT: 03/11/25 1210 Medical Lab Scientist: [facility] External Provider IMG MRI PROCEDURES Final Result * (ABNORMAL) Colonoscopy (07/02/2024) Colonoscopy Abnormal( A) Normal Comment:tubular adenoma with Dr. Slade Historical Provider HEALTH MAINTENANCE Final Result * Hepatitis C Antibody with Reflex to HCV, RNA, Quantitative, Real-Time PCR (07/29/2022 11:16 AM EST) Hepatitis C Antibody NON-REACT MOE NON-REACT MOE [employer] Index 0.06 <1.00 [employer] Comment: HCV antibody was non-reactive. There is no laboratory evidence of HCV infection. In most cases, no further action is required. However, if recent HCV exposure is suspected, a test for HCV RNA (test code 54884) is suggested. For additional information please refer to http://education.[employer].Arkami/faq/IGD52y7 (This link is being provided for informational/ educational purposes only.) Blood Venous blood specimen / Unknown 07/29/2022 11:16 AM EST 07/29/2022 11:17 AM EST Narrative [facility] - 08/02/2022 10:49 PM EST FASTING:YES FASTING: YES Ligia Becerra MD LAB BLOOD ORDERABLES Final Result [facility] [address] [facility] [place] [address] [employer] [place] [facility] [address] [facility], ([address]) [place] [address] * (ABNORMAL) Lipid Panel, Standard (07/29/2022 11:16 AM EST) [facility] Signature Cholesterol, Total 130 <200 mg/dL [employer] [place] [facility] HDL Cholesterol 29(L) > OR = 40 mg/dL [employer] [place] [facility] Triglycerides 80 <150 mg/dL [employer] [place] [facility] LDL Cholesterol 84 mg/dL (calc) [employer] [place] [facility] Comment: Reference range: <100 Desirable range <100 mg/dL for primary prevention; <70 mg/dL for patients with CHD or diabetic patients with > or = 2 CHD risk factors. LDL-C is now calculated using the Barrington-Wallis calculation, which is a validated novel method providing better accuracy than the Friedewald equation in the estimation of LDL-C. Barrington SS et al. EITAN. 2013;310(19): 6027-4027 (http://education.[employer]/faq/BUI517) Chol/HDLC Ratio 4.5 <5.0 (calc) [employer] [place] [facility] Non-HDL Cholesterol 101 <130 mg/dL (calc) [employer] [place] [facility] Comment: For patients with diabetes plus 1 major ASCVD risk factor, treating to a non-HDL-C goal of <100 mg/dL (LDL-C of <70 mg/dL) is considered a therapeutic option. Blood Venous blood specimen / Unknown 07/29/2022 11:16 AM EST 07/29/2022 11:17 AM EST Narrative [facility] - 08/02/2022 10:49 PM EST FASTING:YES FASTING: YES Ligia Becerra MD LAB BLOOD ORDERABLES Final Result [facility] [address] [facility], [place] [address] [employer] [place] [facility] [address] [facility], ([address]) [place] [address] from Last 3 Months or Most Recently Relevant to Health Maintenance Insurance [facility] RESIDENTIAL OPTIONS (O D-SNP) [facility] Advance Directives Documents on File Type Date Recorded 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
--- OUTSIDE RECORDS SUMMARY | 2025-06-03 17:15 | XMS_ITS | Encounter Summary ---
Author Organization [employer] Address [address] [facility] 7t [place] [address] Care Team Providers Care Emergency Department Technician Name Role Phone Ligia Becerra MD Primary Care Provider [phone] Jair Pro MD Unavailable [phone] Tim Herrera Unavailable [phone] Trung Salde MD Unavailable [phone] Reason for Referral * Consultation (Routine) - Closed Specialty Diagnoses / Procedures Referred By Contac t Referred To Contact Physical Therapy Diagnoses Chronic bilateral thoracic back pain Bilateral deafness Ligia Becerra MD [address] [place] [address] Phone: tel: fax: [facility] Audiology [address] [place], [place] Phone: tel: fax: Referral ID Status Reason Start Date Expiration Date V isits Requested Visits Authorized [id number] Closed Specialty Services Required 06/22/2024 06/22/2025 1 1 Encounter Details Date Type Department Care Team (Late st Contact Info) Description 06/17/2024 Orders Only [facility] [address] [place] [address] Ligia Becerra MD [address] [place], [place] [phone] Chronic bilateral thoracic back pain (Primary Dx); [...] Description 06/13/2025 10:45 AM EST Office Visit [facility] [address] [place] [address] Ligia Becerra MD [address] [place] [address] 06/24/2025 11:45 AM EST Office Visit [facility] [address] [place] [address] Chapo Bender MD [address] [place] [address] 07/25/2025 11:00 AM EST Office Visit [facility] [address] [place] [address] Britt Zurita, OD [address] [place] [address] Scheduled Referrals Name Type Priority Associated Diagnoses [...] documented as of this encounter Care Teams Emergency Department Technician Relationship Specialty Start Date End Date Ligia Becerra MD [address] [place] [phone] PCP - General Family Medicine 07/22/22 Jair Pro MD [address] [place] [address] Urology 07/24/24 Tim Herrera [address] [place] [address] Neurosurgery 07/24/24 Trung Slade MD [address] [place] [address] Gastroenterology 10/19/24 [facility]25 documented as of this encounter
--- OUTSIDE RECORDS SUMMARY | 2025-06-03 17:15 | XMS_ITS | Encounter Summary ---
Author Organization [employer] Address [address] [facility] 7t [place] [address] Care Team Providers Care Tractor Sweeper Operator Name Role Phone Ligia Becerra MD Primary Care Provider [phone] Jair Pro MD Unavailable Tim Herrera Unavailable Trung Slade MD Unavailable [phone] Reason for Visit * Reason Onset Date Comments Durable Medical Equipment 06/02/2024 Encounter Details Date Type Department Care Team (Late st Contact Info) Description 06/02/2024 Telephone [facility] [address] [place], [place] [phone] Ligia Becerra MD [address] [place] [address] Durable Medical Equipment Social History Tobacco Use [...] any questions you can contact pt at [phone]. documented in this encounter Plan of Treatment Upcoming Encounters Date Type Department Care Team (Late st Contact Info) Description 06/13/2025 10:45 AM EST [facility] [address] [place] [address] Ligia Becerra MD [address] [place], [place] [phone] 06/24/2025 11:45 AM EST [facility] [address] [place] [address] Chapo Bender MD [address] [place] [address] 07/25/2025 11:00 AM EST [facility] [address] [place] [address] TarkaBritt, OD [address] [place] [address] documented as of this encounter Visit Diagnoses Not on filedocumented in this encounter Additional Health Concerns Assessment Noted Time PHQ-9 Depression Total Score: 3 03/18/20 11:59 AM EDT documented as of this encounter Care Teams Tractor Sweeper Operator Relationship Specialty Start Date End Date Ligia Becerra MD [address] [place] [address] PCP - General Family Medicine 07/22/22 Jair Pro MD [address] [place] [address] Urology 07/24/24 Tim Herrera [address] [place] [address] Neurosurgery 07/24/24 Trung Slade MD [address] [place] [address] Gastroenterology 10/19/24 Chucho Sexton [facility] Case Management 06/03/25 documented as of this encounter
--- OUTSIDE RECORDS SUMMARY | 2025-06-03 17:16 | XMS_ITS | Encounter Summary ---
Author Organization [employer] Address [facility] [address] [address]t [place] [address] Care Team Providers Care Tariff Expert Name Role Phone Ligia Becerra MD Primary Care Provider +1- [phone] Jair Pro MD Unavailable Tim Herrera Unavailable Trung Slade MD Unavailable [phone] Reason for Visit * Reason Comments Med Refill Encounter Details Date Type Department Care Team (Late st Contact Info) Description 10/18/2024 Refill [facility] [address] [place], [place] [phone] Name, MD Joselo [address] [place] [address] Social History Tobacco Use Types Packs/Day Years [...] Description 06/13/2025 10:45 AM EST Office Visit [facility] [address] [place] [address] Ligia Becerra MD 230 [place] [address] 06/24/2025 11:45 AM EST Office Visit [facility] [address] [place] [address] Chapo Bender MD 230 [place] [address] 07/25/2025 11:00 AM EST Office Visit [facility] [address] [place] [address] Britt Zurita, OD [address] [place] [address] documented as of this encounter Visit Diagnoses Not on filedocumented in this encounter Additional Health Concerns Assessment Noted Time PHQ-9 Depression Total Score: 3 03/18/20 24 11:59 AM EDT documented as of this encounter Care Teams Tariff Expert Relationship Specialty Start Date End Date Ligia Becerra MD [address] [place] [address] PCP - General Family Medicine 07/22/22 Jair Pro MD [address] [place] [address] Urology 07/24/24 Tim Herrera [address] [place] [address] Neurosurgery 07/24/24 Trung Slade MD [address] 3rd [place] [address] Gastroenterology 10/19/24 Chucho Sexton [facility] Case Management 06/03/25 documented as of this encounter
--- OUTSIDE RECORDS SUMMARY | 2025-06-03 17:16 | XMS_ITS | Encounter Summary ---
Author Organization [employer] Address [address] [facility] [address] 7t [place] [address] Care Team Providers Care Cooler Operator Name Role Phone Ligia Becerra MD Primary Care Provider [phone]- [phone] Jair Pro MD Unavailable Tim Herrera Unavailable Trung Slade MD Unavailable [phone] Encounter Details Date Type Department Care Team (Late st Contact Info) Description 07/30/2023 Telephone [facility] [address] [place], [place] [phone] Ligia Becerra MD 230 [place], [place] [phone] Social History Tobacco Use Types Packs/Day Years [...] Description 06/13/2025 10:45 AM EST Office Visit [facility] [address] [place] [address] Ligia Becerra MD 230 [place] [address] 06/24/2025 11:45 AM EST Office Visit [facility] [address] [place] [address] Chapo Bender MD 230 [place] [address] 07/25/2025 11:00 AM EST Office Visit [facility] [address] [place] [address] Britt Zurita, OD 267 [place] [address] documented as of this encounter Visit Diagnoses Not on filedocumented in this encounter Additional Health Concerns Assessment Noted Time PHQ-9 Depression Total Score: 18 023 3:56 PM EDT documented as of this encounter Care Teams Cooler Operator Relationship Specialty Start Date End Date Ligia Becerra MD 230 [place] [address] PCP - General Family Medicine 07/22/22 Jair Pro MD [address] [place] [address] Urology 07/24/24 Tim Herrera [address] [place] [address] Neurosurgery 07/24/24 Trung Slade MD [address] 3rd [place] [address] Gastroenterology 10/19/24 Chucho Sexton [facility] Case Management 06/03/25 documented as of this encounter
--- OUTSIDE RECORDS SUMMARY | 2025-06-03 17:16 | XMS_ITS | Encounter Summary ---
Author Organization [employer] Address 75 [facility] 7t [place] [address] Care Team Providers Care Art Preparator Name Role Phone Ligia Becerra MD Primary Care Provider +1- [phone] Jair Pro MD Unavailable Tim Herrera Unavailable Trung Slade MD Unavailable [phone] Reason for Visit * Reason Onset Date Comments Nurse Triage 09/15/2023 Encounter Details Date Type Department Care Team (Late st Contact Info) Description 09/15/2023 Telephone [facility] 230 [place], [place] [phone] Ligia Becerra MD 230 [place], [place] [phone] Nurse Triage Social History Tobacco Use Types [...] accepted this outcome Please contact pt at [phone] documented in this encounter Plan of Treatment Upcoming Encounters Date Type Department Care Team ([facility] Contact Info) Description 06/13/2025 10:45 AM EST Office Visit [facility] [address] [place] [address] Ligia Becerra MD [address] [place] [address] 06/24/2025 11:45 AM EST Office Visit [facility] [address] [place] [address] Chapo Bender MD [address] [place] [address] 07/25/2025 11:00 AM EST Office Visit [facility] [address] [place] [address] Britt Zurita, OD [address] [place] [address] documented as of this encounter Visit Diagnoses Not on filedocumented in this encounter Additional Health Concerns Assessment Noted Time PHQ-9 Depression Total Score: 18 023 3:56 PM EDT documented as of this encounter Care Teams Art Preparator Relationship Specialty Start Date End Date Ligia Becerra MD 230 [place] [address] PCP - General Family Medicine 07/22/22 Jair Pro MD [address] [place] [address] Urology 07/24/24 Tim Herrera [address] [place] [address] Neurosurgery 07/24/24 Trung Slade MD [address] 3rd [place] [address] Gastroenterology 10/19/24 Chucho Sexton [facility] Case Management 06/03/25 documented as of this encounter
--- OUTSIDE RECORDS SUMMARY | 2025-06-03 17:16 | XMS_ITS | Encounter Summary ---
Author Organization [employer] Address 75 [facility] 7t [place] [address] Care Team Providers Care Tools Programmer Name Role Phone Ligia Becerra MD Primary Care Provider +1- [phone] Jair Pro MD Unavailable [phone] Tim Herrera Unavailable Trung Slade MD Unavailable [phone] Reason for Visit * Reason Onset Date Comments Durable Medical Equipment 03/22/2024 Encounter Details Date Type Department Care Team (Late st Contact Info) Description 03/22/2024 Telephone [facility] 230 [place], [place] [phone] Ligia Becerra MD 230 [place] [address] Durable Medical Equipment Social History Tobacco Use [...] Sopra Cream Recliner Please contact pt at [phone] documented in this encounter Plan of Treatment Upcoming Encounters Date Type Department Care Team (Late st Contact Info) Description 06/13/2025 10:45 AM EST Office Visit [address] [address] Ligia Becerra MD [address] [place] [address] 06/24/2025 11:45 AM EST Office Visit [address] [address] Chapo Bender MD [address] [place] [address] 07/25/2025 11:00 AM EST Office Visit [facility] [address] [place] [address] Britt Zurita, OD [address] [place] [address] documented as of this encounter Visit Diagnoses Not on filedocumented in this encounter Additional Health Concerns Assessment Noted Time PHQ-9 Depression Total Score: 3 03/18/20 11:59 AM EDT documented as of this encounter Care Teams Tools Programmer Relationship Specialty Start Date End Date Ligia Becerra MD 230 [place] [address] PCP - General Family Medicine 07/22/22 Jair Pro MD [address] [place] [address] Urology 07/24/24 Tim Herrera [address] [place] [address] Neurosurgery 07/24/24 Trung Slade MD [address] 3rd [place] [address] Gastroenterology 10/19/24 Chucho Sexton [facility] Case Management 06/03/25 documented as of this encounter
--- OUTSIDE RECORDS SUMMARY | 2025-06-03 17:16 | XMS_ITS | Encounter Summary ---
Author Organization [employer] Address 75 [facility] 7t [place] [address] Care Team Providers Care Toe Pounder Name Role Phone Ligia Becerra MD Primary Care Provider [phone]- [phone] Jair Pro MD Unavailable [phone] Tim Herrera Unavailable [phone] Trung Slade MD Unavailable Reason for Visit * Reason Onset Date Comments returnin call back 09/17/2022 Encounter Details Date Type Department Care Team (Late st Contact Info) Description 09/17/2022 Telephone [facility] 230 [place], [place] [phone] Ligia Becerra MD 230 [place] [address] returnin call back Social History Tobacco Use [...] PM EST documented as of this encounter Functional Status * Over the past 2 weeks, how often have you been bothered by any of the following problems? Question Answer Date of Assessment Author Little interest or pleasure in doing things Several days 09/17/2022 3:14 PM EST Ligia Becerra MD Feeling down, depressed, or hopeless Several days 09/17/2022 3:14 PM EST José Becerra MD Patient Health Questionnaire-2 Score 2 09/17/2022 3:14 PM EST Maria R Becerra MD * If you checked off any problems on this questionnaire so far, Question Answer Date of Assessment Author How difficult have these problems made it for you to do your work, take care of things at home, or get along with other people? Somewhat difficult 09/17/2022 3:14 PM EST José Becerra MD documented as of this encounter Miscellaneous Notes * Telephone Encounter - Don Cerrato - 09/17/2022 1:25 PM EST Tc from pt returning phone call, engineering writer see's that provider would like to schedule a 30 min appt inperson with pt. Please contact pt at [phone] documented in this encounter Plan of Treatment Upcoming Encounters Date Type Department Care Team (Late st Contact Info) Description 06/13/2025 10:45 AM EST Office Visit [facility] [address] [place] [address] Ligia Becerra MD [address] [place] [address] 06/24/2025 11:45 AM EST Office Visit [facility] [address] [place] [address] Chapo Bender MD [address] [place] [address] 07/25/2025 11:00 AM EST Office Visit [facility] [address] [place] [address] Britt Zuriat, OD [address] [place] [address] documented as of this encounter Visit Diagnoses Not on filedocumented in this encounter Care Teams Toe Pounder Relationship Specialty Start Date End Date Ligia Becerra MD 230 [place] [address] PCP - General Family Medicine 07/22/22 Jair Pro MD [address] [place] [address] Urology 07/24/24 Tim Herrera [address] [place] [address] Neurosurgery 07/24/24 Trung Slade MD [address] 3rd [place] [address] Gastroenterology 10/19/24 [facility] documented as of this encounter
--- OUTSIDE RECORDS SUMMARY | 2025-06-03 17:16 | XMS_ITS | Encounter Summary ---
Author Organization [employer] Address 75 [facility] 7t [place] [address] Care Team Providers Care Perforating Machine Operator Name Role Phone Ligia Becerra MD Primary Care Provider [phone]- [phone] Jair Pro MD Unavailable Tim Herrera Unavailable Trung Slade MD Unavailable [phone] Encounter Details Date Type Department Care Team (Late st Contact Info) Description 11/01/2022 Orders Only [facility] 230 [place], [place] [phone] Ligia Becerra MD 230 [place], [place] [phone] Bilateral deafness (Primary Dx) Social History Tobacco [...] Description 06/13/2025 10:45 AM EST Office Visit [facility] [address] [place] [address] Ligia Becerra MD 230 [place] [address] 06/24/2025 11:45 AM EST Office Visit [facility] [address] [place] [address] Chapo Bender MD 230 [place] [address] 07/25/2025 11:00 AM EST Office Visit [facility] 267 [place] [address] Britt Zurita, OD 267 [place] [address] documented as of this encounter Visit Diagnoses Diagnosis Bilateral deafness- Primary Unspecified hearing loss documented in this encounter Care Teams Perforating Machine Operator Relationship Specialty Start Date End Date Ligia Becerra MD [address] [place] [address] PCP - General Family Medicine 07/22/22 Jair Pro MD [address] [place] [address] Urology 07/24/24 Tim Herrera [address] [place] [address] Neurosurgery 07/24/24 Trung Slade MD [address] 3rd [place] [address] Gastroenterology 10/19/24 Chucho Sexton [facility] Case Management 06/03/25 documented as of this encounter
--- OUTSIDE RECORDS SUMMARY | 2025-06-03 17:16 | XMS_ITS | Encounter Summary ---
Author Organization [employer] Address 75 [facility] 7t [place] [address] Care Team Providers Care Corduroy Cutting Supervisor Name Role Phone Ligia Becerra MD Primary Care Provider [phone]- [phone] Jair Pro MD Unavailable [phone] Tim Herrera Unavailable Trung Slade MD Unavailable [phone] Reason for Visit * Reason Onset Date Comments Nurse Triage 10/08/2023 Encounter Details Date Type Department Care Team (Late st Contact Info) Description 10/08/2023 Telephone [facility] 230 [place], [place] [phone] Ligia Becerra MD 230 [place], [place] [phone] Nurse Triage Social History Tobacco Use Types [...] PM EST Call to Ashley Angeles via [employer] video singing telegram performer. Pt reports having back pain that is [...] Description 06/13/2025 10:45 AM EST Office Visit [facility] 230 [place] [address] Ligia Becerra MD 230 [place] [address] 06/24/2025 11:45 AM EST Office Visit [facility] 230 [place] [address] Chapo Bender MD 230 [place] [address] 07/25/2025 11:00 AM EST Office Visit [facility] 267 [place] [address] Britt Zurita, OD 267 [place] [address] documented as of this encounter Visit Diagnoses Not on filedocumented in this encounter Additional Health Concerns Assessment Noted Time PHQ-9 Depression Total Score: 18 023 3:56 PM EDT documented as of this encounter Care Teams Corduroy Cutting Supervisor Relationship Specialty Start Date End Date Ligia Becerra MD 230 [place] [address] PCP - General Family Medicine 07/22/22 Jair Pro MD [address] [place] [address] Urology 07/24/24 Tim Herrera [address] [place] [address] Neurosurgery 07/24/24 Trung Slade MD [address] 3rd [place] [address] Gastroenterology 10/19/24 Chucho Sexton [facility] Case Management 06/03/25 documented as of this encounter
--- OUTSIDE RECORDS SUMMARY | 2025-06-03 17:16 | XMS_ITS | Encounter Summary ---
Author Organization [employer] Address 75 [facility] 7t [place] [address] Care Team Providers Care Manager Urgent Care Name Role Phone Ligia eBcerra MD Primary Care Provider [phone]- [phone] Jair Pro MD Unavailable Tim Herrera Unavailable Trung Slade MD Unavailable [phone] Reason for Visit * Reason Onset Date Comments PT1 10/06/2023 Encounter Details Date Type Department Care Team (Late st Contact Info) Description 10/06/2023 Telephone [facility] 230 [place], [place] [phone] Ligia Becerra MD 230 [place] [address] PT1 Social History Tobacco Use Types Packs/Day [...] 3 PM Visits: 5 per month Address: [address] [place] [address] Facility: [facility] Wheel Chair: no, walker Electric Brain Wave Equipment Mechanic Needed: yes Date: n/a Time: n/a Visits: 5 per month Address: [address] [place] [address] Facility: [facility] Wheel Chair: No, walker Electric Brain Wave Equipment Mechanic Needed: yes documented in this encounter Plan of Treatment Upcoming Encounters Date Type Department Care Team ([facility] Contact Info) Description 06/13/2025 10:45 AM EST Office Visit [facility] [address] [place] [address] Ligia Becerra MD [address] [place] [address] 06/24/2025 11:45 AM EST Office Visit [facility] [address] [place] [address] Chapo Bender MD [address] [place] [address] 07/25/2025 11:00 AM EST Office Visit [facility] [address] [place] [address] Britt Zurita, OD [address] [place] [address] documented as of this encounter Visit Diagnoses Not on filedocumented in this encounter Additional Health Concerns Assessment Noted Time PHQ-9 Depression Total Score: 18 023 3:56 PM EDT documented as of this encounter Care Teams Manager Urgent Care Relationship Specialty Start Date End Date Ligia Becerra MD 230 [place] [address] PCP - General Family Medicine 07/22/22 Jair Pro MD [address] [place] [address] Urology 07/24/24 Tim Herrera [address] [place] [address] Neurosurgery 07/24/24 Trung Slade MD [address] 3rd [place] [address] Gastroenterology 10/19/24 Chucho Sexton [facility] Case Management 06/03/25 documented as of this encounter
--- OUTSIDE RECORDS SUMMARY | 2025-06-03 17:16 | XMS_ITS | Encounter Summary ---
Author Organization [employer] Address 75 [facility] 7t [place] [address] Care Team Providers Care Senior Production Supervisor Name Role Phone Ligia Becerra MD Primary Care Provider +1- [phone] Jair Pro MD Unavailable Tim Herrera Unavailable [phone] Trung Slade MD Unavailable [phone] Reason for Visit * Reason Onset Date Comments Call Back Request 06/03/2025 Medication Question 06/03/2025 Encounter Details Date Type Department Care Team (Late st Contact Info) Description 06/03/2025 Telephone [facility] 230 [place], [place] [phone] Ligia Becerra MD 230 [place], [place] [phone] Call Back Request; Medication Question Social History Tobacco Use Types [...] encounter Miscellaneous Notes * Telephone Encounter - Darling Mendes - 06/03/2025 2:47 PM EDT Tc from pt with engineering design supervisor requesting a call back stating pt requested a cough medication to pcp and did not receive it Contact pt at [phone] (sign language) documented in this encounter Plan of Treatment Upcoming Encounters Date Type Department Care Team ([facility] st Contact Info) Description 06/13/2025 10:45 AM EST Office Visit [facility] [address] [place] [address] Ligia Becerra MD 230 [place] [address] 06/24/2025 11:45 AM EST Office Visit [facility] [address] [place] [address] Chapo Bender MD 230 [place] [address] 07/25/2025 11:00 AM EST Office Visit [facility] 267 [place] [address] Tarka Britt, OD 267 [place] [address] documented as of this encounter Visit Diagnoses Not on filedocumented in this encounter Additional Health Concerns Assessment Noted Time PHQ-9 Depression Total Score: 11 04/06/ 025 3:12 PM EDT documented as of this encounter Care Teams Senior Production Supervisor Relationship Specialty Start Date End Date Ligia Becerra MD 230 [place] [address] PCP - General Family Medicine 07/22/22 Jair Pro MD [address] [place] [address] Urology 07/24/24 Tim Herrera [address] [place] [address] Neurosurgery 07/24/24 Trung Slade MD [address] 3rd [place] [address] Gastroenterology 10/19/24 [facility]25 documented as of this encounter
--- OUTSIDE RECORDS SUMMARY | 2025-06-03 17:16 | XMS_ITS | Clinical Summary ---
Author Organization [facility] Address [address] [place] [address] Phone Care Team Providers Care Wellness Trainer Name Role Phone Ligia Becerra MD Primary Care Provider +1- [phone] Allergies No known active allergies Medications No known medications Social History Tobacco Use Types Packs/Day Years [...] Last Done Comments Colorectal Cancer Screening: Colonoscopy 1960 Medicare Annual Wellness Visit 07/09/2022 Social Influencers of Health Screening 07/09/2022 Falls Risk Assessment 2023 Depression Screening 08/11/2024 Hypertension/CHF/CAD Annual BMP Blood Test 12/23/2024 COVID-19 Vaccine ( season) 2025 05/19/2024, 08/14/2023, 06/24/2022, Additional history exists Influenza Vaccine (#1) 2025 , 05/23/2023, 07/29/2022, [...] on patient's age to complete this topic [place] [address] [place] [address] MEDICARE Member Subscriber Plan / Payer (Ef fective 2024-Present) Name:VON CALLAWAY Relation to Subscriber:Self Name:Von Long Payer ID:[id number] Group ID:[id number] Type:Not on file Address: [address] [place] [address] Care Teams Wellness Trainer Relationship Specialty Start Date End Date [place], [place] Ligia [address] [place] [phone] PCP - General Family Medicine 03/02/25
--- OUTSIDE RECORDS SUMMARY | 2025-06-03 17:16 | XMS_ITS | Encounter Summary ---
Author Organization [employer] Address 75 [facility] 7t [place] [address] Care Team Providers Care Instrument Repair Technician Name Role Phone Ligia Becerra MD Primary Care Provider +1- [phone] Jair Pro MD Unavailable Tim Herrera Unavailable Trung Slade MD Unavailable [phone] Reason for Visit * Reason Onset Date Comments Call Back Request 06/01/2025 chart prep 06/01/2025 Encounter Details Date Type Department Care Team (Late st Contact Info) Description 06/01/2025 Telephone [facility] 230 [place], [place] [phone] Ligia Becerra MD 230 [place], [place] [phone] Call Back Request; chart prep Social History Tobacco Use Types Packs/Day Years [...] Telephone Encounter - Barbara White RN - 06/03/2025 11:09 AM EDT Pt has telephone appointment with PCP today 06/03/2025 at 1130 * Telephone Encounter - Criss Gay [place] - 06/02/2025 2:27 PM EDT Chart Prep Labs: not done Images: not applicable Referrals: not applicable Vaccines due: Covid and Flu Screenings: Anal pap Overdue care gaps: SBIRT * Telephone Encounter - Lia Huang - 06/02/2025 11:02 AM EDT Tc from pt requesting call, card writer hand advised pt has appointment tomorrow at 11:30 * Telephone Encounter - Joselo Araiza - 06/01/2025 3:13 PM EDT Tc from pt requesting a call back from PCP due to an incident that had occurred at the place that the pt was staying in. Pt states it is an emergency due to pt have court on 06/09. Contact pt at [phone] documented in this encounter Plan of Treatment Upcoming Encounters Date Type Department Care Team (Late st Contact Info) Description 06/13/2025 10:45 AM EST Office Visit [facility] 230 [place] [address] Ligia Becerra MD 230 [place] [address] 06/24/2025 11:45 AM EST Office Visit [facility] 230 [place] [address] Chapo Bender MD 230 [place] [address] 07/25/2025 11:00 AM EST Office Visit [facility] 267 [place] [address] Britt Zurita, OD 267 [place] [address] documented as of this encounter Visit Diagnoses Not on filedocumented in this encounter Additional Health Concerns Assessment Noted Time PHQ-9 Depression Total Score: 11 04/06/2 025 3:12 PM EDT documented as of this encounter Care Teams Instrument Repair Technician Relationship Specialty Start Date End Date Ligia Becerra MD 230 [place] [address] PCP - General Family Medicine 07/22/22 Jair Pro MD [address] [place] [address] Urology 07/24/24 Tim Herrera [address] [place] [address] Neurosurgery 07/24/24 Trung Slade MD [address] 3rd [place] [address] Gastroenterology 10/19/24 Chucho Sexton [facility] Case Management 06/03/25 documented as of this encounter
--- OUTSIDE RECORDS SUMMARY | 2025-06-03 17:16 | XMS_ITS | Encounter Summary ---
Author Organization [employer] Address [address] [facility] 7t [place] [address] Care Team Providers Care Head Buyer Tobacco Name Role Phone Ligia Becerra MD Primary Care Provider [phone] Jair Pro MD Unavailable Tim Herrera Unavailable Trung Slade MD Unavailable [phone] Encounter Details Date Type Department Care Team (Late Contact Info) Description 08/13/2022 Orders Only [facility] [address] [place] [address] [phone] Ligia Becerra MD [address] [place] [address] [phone] Social History Tobacco Use Types Packs/Day Years [...] Description 06/13/2025 10:45 AM EST Office Visit [facility] [address] [place] [address] Ligia Becerra MD [address] [place] [address] 06/24/2025 11:45 AM EST Office Visit [facility] [address] [place] [address] Chapo Bender MD [address] [place] [address] 07/25/2025 11:00 AM EST Office Visit [facility]OM[facility] [address] [place] [address] Britt Zurita OD [address] [place] [address] documented as of this encounter Visit Diagnoses Not on filedocumented in this encounter Care Teams Head Buyer Tobacco Relationship Specialty Start Date End Date Ligia Becerra MD [address] [place] [address] PCP - General Family Medicine 07/22/22 Jair Pro MD [address] [place] [address] Urology 07/24/24 Tim Herrera [address] [place] [address] Neurosurgery 07/24/24 Trung Slade MD [address] 3rd [place] [address] Gastroenterology 10/19/24 [facility] 06/[facility]/25 documented as of this encounter
--- OUTSIDE RECORDS SUMMARY | 2025-06-03 17:16 | XMS_ITS | Encounter Summary ---
Author Organization [employer] Address [address] [facility] 7t [place] [address] Care Team Providers Care Kennel Aide Name Role Phone Ligia Becerra MD Primary Care Provider [phone] Jair Pro MD Unavailable [phone] Tim Herrera Unavailable [phone] Trung Slade MD Unavailable Reason for Visit * Reason Onset Date Comments Nurse Triage 08/15/2023 Encounter Details Date Type Department Care Team (Late st Contact Info) Description 08/15/2023 Telephone [facility] [address] [place], [place] [phone] Ligia Becerra MD [address] [place], [place] [phone] Nurse Triage Social History Tobacco Use Types [...] EST Office Visit [facility] [address] [place] [address] Ligia Becerra MD [address] [place] [address] 06/24/2025 11:45 AM EST Office Visit [facility] [address] [place] [address] Chapo Bender MD [address] [place] [address] 07/25/2025 11:00 AM EST Office Visit [facility] OPTOMETRY [address] [place] [address] Britt Zurita, OD [address] [place] [address] documented as of this encounter Visit Diagnoses Not on filedocumented in this encounter Additional Health Concerns Assessment Noted Time PHQ-9 Depression Total Score: 18 023 3:56 PM EDT documented as of this encounter Care Teams Kennel Aide Relationship Specialty Start Date End Date Ligia Becerra MD [address] [place] [address] PCP - General Family Medicine 07/22/22 Jair Pro MD [address] [place] [address] Urology 07/24/24 Tim Herrera [address] [place] [address] Neurosurgery 07/24/24 Trung Slade MD [address] 3rd [place] [address] Gastroenterology 10/19/24 [facility] documented as of this encounter
--- OUTSIDE RECORDS SUMMARY | 2025-06-03 17:16 | XMS_ITS | Encounter Summary ---
Author Organization [employer] Address [address] [facility] 7t [place] [address] Care Team Providers Care Director Of Ancillary Services Name Role Phone Ligia Becerra MD Primary Care Provider [phone] Jair Pro MD Unavailable Tim Herrera Unavailable Trung Slade MD Unavailable [phone] Reason for Visit * Reason Onset Date Comments Referral 04/18/2025 Encounter Details Date Type Department Care Team (Late st Contact Info) Description 04/18/2025 Telephone [facility] [address] [place], [place] [phone] Ligia Becerra MD [address] [place], [place] [phone] Referral Social History Tobacco Use Types Packs/Day [...] Telephone Encounter - Mae Read RN - 04/26/2025 2:07 PM EDT Called pt via interpreter for the deaf. Advised her Dr. Becerra would like to discuss this referral requestwith her, scheduled appt for next available 06/13/25. Pt verbalized understanding. * Telephone Encounter - Chuck Colón - 04/26/2025 1:36 PM EDT Pt calling again regarding referral for plastic surgeon office for Breast augmentation and facial feminization . Yard Supervisor Cotton Gin advised pt that pcp will further discuss with her. * Telephone Encounter - Darling Vaughn - 04/18/2025 2:26 PM EDT Tc from pt requesting a referral to a plastic surgeon for breast implants Contact pt at [phone] (sign language ) documented in this encounter Plan of Treatment Upcoming Encounters Date Type Department Care Team (Late st Contact Info) Description 06/13/2025 10:45 AM EST Office Visit [facility] MED[facility]INE [address] [place] [address] Ligia Becerra MD [address] [place] [address] 06/24/2025 11:45 AM EST Office Visit [facility] MED[facility]INE [address] [place] [address] Chapo Bender MD [address] [place] [address] 07/25/2025 11:00 AM EST Office Visit [facility] OPTOMETRY [address] [place] [address] Britt Zurita, OD [address] [place] [address] documented as of this encounter Visit Diagnoses Not on filedocumented in this encounter Additional Health Concerns Assessment Noted Time PHQ-9 Depression Total Score: 11 04/06/2 025 3:12 PM EDT documented as of this encounter Care Teams Director Of Ancillary Services Relationship Specialty Start Date End Date Ligia Becerra MD [address] [place] [address] PCP - General Family Medicine 07/22/22 Jair Pro MD [address] [place] [address] Urology 07/24/24 Tim Herrera [address] [place] [address] Neurosurgery 07/24/24 Trung Slade MD [address] 3rd [place] [address] Gastroenterology 10/19/24 Chucho Sexton [facility] Case Management 06/03/25 documented as of this encounter
--- OUTSIDE RECORDS SUMMARY | 2025-06-03 17:16 | XMS_ITS | Encounter Summary ---
Author Organization [employer] Address [address] [facility] [address] 7t [place] [address] Care Team Providers Care Chemical Compounder Helper Name Role Phone Ligia Becerra MD Primary Care Provider [phone] Jair Pro MD Unavailable Tim Herrera Unavailable [phone] Trung Slade MD Unavailable [phone] Encounter Details Date Type Department Care Team (Latest Contact Info) Description 06/03/2025 Travel Social History Tobacco Use Types Packs/Day [...] 10:45 AM EST Office Visit [facility] [address] [place] [address] Ligia Becerra MD [address] [place] [address] 06/24/2025 11:45 AM EST Office Visit [facility] [address] [place] [address] Chapo Bender MD [address] [place] [address] 07/25/2025 11:00 AM EST Office Visit [facility] OPTOMETRY [address] [place] [address] Britt Zurita, OD [address] [place] [address] documented as of this encounter Visit Diagnoses Not on filedocumented in this encounter Additional Health Concerns Assessment Noted Time PHQ-9 Depression Total Score: 11 025 3:12 PM EDT documented as of this encounter Care Teams Chemical Compounder Helper Relationship Specialty Start Date End Date [place], [place] Ligia [address] [place] [address] PCP - General Family Medicine 07/22/22 Jair Pro MD [address] [place] [address] Urology 07/24/24 Tim Herrera [address] [place] [address] Neurosurgery 07/24/24 Trung Slade MD [address] 3rd [place] [address] Gastroenterology 10/19/24 Chucho Sexton [facility] Case Management 06/03/25 documented as of this encounter
--- OUTSIDE RECORDS SUMMARY | 2025-06-03 17:16 | XMS_ITS | Data Portability ---
Author Organization [facility] Address [address] [place] [address] Care Team Providers Care Pc Analyst Name Role Phone HIM CCA OTHER Assessment Encounter Date Assessment Date Assessment LastModified by Organization Details LastModified Time 10/17/2023 10/17/2023 63 yo M with deafness, visual impairment p/w 2 days of dizziness, diffuse acute on chronic abdominal pain with foul smelling urine, yellow penile discharge, subjective chills, and worsened back pain. Has not been eating/drinking as much as normal due to symptoms. No objective fever, diarrhea, constipation, dysuria, syncope, headache, vision changes, CP, SOB. Has had male sex partners in the past, but no sex in months to years. BP sitting 127/79, HR 50 BP standing 140/84, HR 58 urine dip neg BMP wnl COVID and flu neg EKG sinus bradycardia On medic exam, lungs CTAB, abd soft, distended (at baseline per pt), RLQ ttp, no LE edema. Pt with acute on chronic abd pain w/nml VS and reassuring exam, not c/w acute intraabd process. Sxs improved s/p toradol 30mg. Urine dip is not c/w UTI or prostatitis, but will send UCX to confirm. Given penile discharge, will send urine GC/CT, RPR, HIV and treat empirically for gonorrhea with ceftriaxone 500mg. Dizziness may be iso poor PO and relative hypovolemia, though hemodynamically stable. Sxs improved s/p 1L NS bolus. Pt has red flag s/sxs for which to call back vs go to ED if afterhours. Care team will f/up send out blood/urine tests. [email or web address] Not available 10/17/2023 19:47:56 11/18/2023 11/18/2023 I have reviewed and agree with the assessment and plan as documented by the account general manager. I provided real time medical direction for this encounter and was immediately available to provide additional phone based assistance as needed. History as noted by account general manager. Pt with recent dysuria and fever, was seen yesterday in the [facility] ED and he reports he was diagnosed with pyelonephritis. He was discharged on cefpodoxime and reports taking a dose last night and again this AM. Pt reports he continues to have dysuria and suprapubic pressure. He denies any flank pain, nausea, vomiting, fevers or chills. Pt has a follow up appt with his primary care tomorrow in the office. On exam, pt appears comfortable, no distress. Vitals ok, afebrile. Abdomen soft, no tenderness. No CVAT noted. Impression: Pt with acute pyelonephritis reportedly diagnosed in the [place] ED yesterday, currently taking cefpodoxime as prescribed. He reports continued dysuria and suprapubic pressure but denies any fevers, chills, vomiting or flank pain. We discuss with the pt that his symptoms may persist for another few days since he just started the antibiotic yesterday. He is told to continue to take the antibiotics as prescribed. I also prescribe pyridium 200mg TID x2 days, prn dysuria. Pt told to keep his scheduled appointment tomorrow with his primary care so they can check his urine culture results, and to return to the ED if he develops any worsening abdominal pain, any flank pain or any vomiting, fevers or chills. [email or web address] Not available 11/18/2023 13:17:45 03/24/2024 03/24/2024 Ms. Ashley Long is a transgender woman w/ a hx of deafness and chronic indewlling rondon who is seen today for reported suprapubic abdominal pressure. History is difficult as Ms. Long declined to work with available ALS translator deaf, reporting to the medic that she didn't want to talk because I'm in a bad mood. A roommate reports that Ms. Long has been endorsing a sensation of incomplete rondon drainage and bladder heaviness. VSS. Medic on site reports male genitalia with rondon draining clear yellow urine. Recommended re-engaging critical care nurse specialist to offer fresh rondon placement and UA. Unable to engage again but medic was able to pull rondon tubing apart and flushed two partial clogs. Seems to have provided her with some relief. POC UA from rondon tubing with +LE, +blood, equivocal nitrites, c/w infection. Rx for cefpodoxime sent in to pharmacy. Primary team, Ms. Long would benefit from a check in over the next few days to make sure she's feeling better. [email or web address] Not available 03/24/2024 15:04:58 Plan of Treatment Reminders Order Date Submit Date Provider Last Modified By Organization Details Last Modified Time Details Appointments None recorded. Lab culture, urine 2023 024 [facility] (Centralized Electronic Ordering - All Locations), Patient Can Go To The Location Of Their Choice, [id number] 4 16:06:44 urinalysis, dipstick 2023 024 [facility], [address] [place] [address], [id number] 4 15:29:28 rapid SARS CoV 2 Ag, QL IA, respiratory specimen 2023 024 [facility], [address] [place] [address], [id number] 4 19:47:31 rapid flu (A+B) 2023 024 [facility], [address] [place] [address], [id number] 4 19:40:26 culture, urine 2023 024 [place] ([facility] Order[facility] - All Locations), Patient Can Go To The Location Of Their Choice, [id number] 4 07:31:35 urinalysis, dipstick 2023 [email or web address] [place] [address], [address] [place] [address], [id number] 4 15:29:58 BMP, serum or plasma 2023 024 [email or web address] 7 [facility], [address] [place] [address], [id number] 4 15:32:56 CT, DNA, qual, PCR, unspecified specimen 2023 024 [place] [facility] ([facility] Ordering - All Locations), Patient Can Go To The Location Of Their Choice, [id number] 4 18:49:09 neisseria gonorrhoeae , culture, unspecified specimen 2023 024 [place] [address] [facility] ([facility] Ordering - All Locations), Patient Can Go To The Location Of Their Choice, [id number] 4 10:51:54 unlisted lab - HIV Ab-Ag w/rflx to HIV qnt 2023 024 [place] [facility] ([facility] Ordering - All Locations), Patient Can Go To The Location Of Their Choice, [id number] 4 11:07:49 unlisted lab - HIV-1 RNA quant (viral load), plasma 2023 024 [place] [address] [facility] ([facility] Ordering - All Locations), Patient Can Go To The Location Of Their Choice, [id number] 4 10:51:54 RPR (rapid plasma reagin), titer, serum 2023 024 [place] [facility] ([facility] Ordering - All Locations), Patient Can Go To The Location Of Their Choice, [id number] 4 11:08:23 Referral None recorded. Procedures None recorded. Surgeries None recorded. Imaging electrocard iogram 2024 025 [facility], [address] [place] [address], [id number] 5 05:01:08 electrocard iogram 2023 024 [facility], [address] [place] [address], [id number] 4 20:46:46 Medication Orders Medrol (Barney) 4 mg tablets in a dose pack 2024 025 [id number], [address], [place], [id number], 5 17:30:22 cefpodoxime 200 mg tablet 2023 024 [id number], [address], [place], [id number], 4 15:02:45 Pyridium 200 mg tablet 2023 024 [id number], [address], [place], [id number], 4 14:11:56 ketorolac 30 mg/mL injection solution 2023 024 [email or web address] 7 Not available 4 15:29:54 sodium chloride 0.9 % intravenous solution 2023 024 [email or web address] 7 Not available 4 15:29:54 ceftriaxone 500 mg solution for injection 2023 024 [email or web address] 7 Not available 4 15:29:54 Patient TargetsNo targets recorded. Patient InstructionsNo instructions recorded. Reason for Referral None Reported. Results Created Date Observation Date Name Description Value Unit Range Abnormal Flag Note LastModifiedBy Organization Detail LastModifiedTime 10/17/1910/18/2023 HIV AB-AG W/RFL X TO HIV QNT result 4TH gen HIV Ab-Ag (neg) normal NEGAT MOE Negat moe for antib odies to HIV 1 and HIV 2 and P24 antig en. Refer ence range : Negat moe Addit ional note: Writt en patie nt autho rizat ion is requi red for each separ ate relea se of this test resul t. This test was perfo rmed on the [employer]bot t Ar[employer] tect immun oassa y syste m. Not Available [facility] (Centralized Electronic Ordering - All Locations) Patient Can Go To The Location Of Their Choice, [id number] 10/18/2023 11:07:49 10/17/1910/18/2023 SYPHI LIS TESTI NG syphilis screen by karma (neg) normal NEGAT MOE Refer ence range : Negat moe This test was perfo rmed on the [employer] t Ar[employer] tect immun oassa y syste m. Not Available [facility] (Centralized Electronic Ordering - All Locations) Patient Can Go To The Location Of Their Choice, 10/18/2023 11:08:22 10/17/19 24 10/18/2023 SYPHI LIS TESTI NG RPR titer result NOT INDICA MARIA L Not Available [facility] (Centralized Electronic Ordering - All Locations) Patient Can Go To The Location Of Their Choice, 10/18/2023 11:08:22 10/17/19 24 10/18/2023 SYPHI LIS TESTI NG tppa result NOT INDICA MARIA L Not Available [facility] (Centralized Electronic Ordering - All Locations) Patient Can Go To The Location Of Their Choice, 10/18/2023 11:08:22 10/17/19 24 10/18/2023 SYPHI LIS TESTI NG syphilis interpretati on Indic ative of the absen ce of infec tion with Trepo nemal palli dum. Test may be negat moe in cases of incub ating or early prima ry syphi lis. Consi angie repea t testi ng in sever al weeks if clini renee suspi cion is high. Not Available [facility] (Centralized Electronic Ordering - All Locations) Patient Can Go To The Location Of Their Choice, 10/18/2023 11:08:22 10/17/19 24 10/17/2023 URINE CULTU RE specimen description URINE Not Available [facility] ([facility] - All Locations) Patient Can Go To The Location Of Their Choice, 10/19/2023 07:31:34 10/17/19 24 10/17/2023 URINE CULTU RE special requests NONE Not Available [facility] ([facility] Order[facility] - All Locations) Patient Can Go To The Location Of Their Choice, 10/19/2023 07:31:34 10/17/19 24 10/19/2023 URINE CULTU RE culture Mixed bacter ial ailyn, indica tive of urogen ital contam inatio n. Not Available [facility] (Centralized Electronic Ordering - All Locations) Patient Can Go To The Location Of Their Choice, 10/19/2023 07:31:34 10/17/19 24 10/19/2023 URINE CULTU RE report status FINAL 2023 Not Available [facility] (Centralized Electronic Ordering - All Locations) Patient Can Go To The Location Of Their Choice, [id number] 10/19/2023 07:31:34 10/17/19 24 10/20/2023 CHLAM YDIA TRACH OMATI S RNA, TMA, URINE urine chlamydia amp probe (neg) NEGAT MOE No Chlam ydia Trach omati s RNA detec maria l in this patie nt's sampl e (REFE RENCE RANGE /NORM AL VALUE : NOT DETEC MARIA L) Note: This test uses trans cript ion- media maria l ampli ficat ion metho d to detec t rRNA from C. Trach omati s Not Available [facility] (Centralized Electronic Ordering - All Locations) Patient Can Go To The Location Of Their Choice, [id number] 10/20/2023 18:49:09 10/17/19 24 10/17/2023 BMP, serum or plasm a BUN 16 Not Available [facility] [address], [address] [place] [address] 10/17/2023 15:25:47 10/17/19 24 10/17/2023 BMP, serum or plasm a CRE 0.9 Not Available [facility] [address], [address] [place] [address] 10/17/2023 15:25:47 10/17/19 24 10/17/2023 BMP, serum or plasm a K+ 4.3 Not Available [facility] [address], [address] [place] [address] 10/17/2023 15:25:47 10/17/19 24 10/17/2023 BMP, serum or plasm a Na+ 140 Not Available [facility] [address], [address] [place] [address] 10/17/2023 15:25:47 10/17/19 24 10/17/2023 urina lysis , dipst ick Leukocytes neg Not Available [facility] [address] [place] [address], [address] [place] [address] 10/17/2023 15:21:36 10/17/19 24 10/17/2023 urina lysis , dipst ick Nitrite negati ve Not Available [facility] [address] [place] [address], [address] [place] [address] 10/17/2023 15:21:36 03/24/20 24 03/25/2024 URINE CULTU RE, ROUTI NE urine culture, routine Final report Not Available [facility] ([facility]) [address] [facility], [place], [address], 03/25/2024 16:06:43 03/24/20 24 03/25/2024 URINE CULTU RERACHEL result 1 No growth Not Available [facility] ([facility]) [address] [facility], [place], [address], 03/25/2024 16:06:43 10/17/19 24 10/17/2023 elect rocar diogr am No observ ation record ed. [email or web address] [facility] - [facility] [address] [place] [address], [id number] 10/18/2023 09:30:43 08/20/1908/20/2024 elect rocar diogr am No observ ation record ed. [email or web address] [facility] [address] [place] [address], [id number] 08/20/2024 08:59:12 Result Notes None recorded. Medical Equipment None Reported. Allergies No known drug allergies Medications Name Sig Start Date Stop Date Status Note LastModified by Organization Details LastModified Time amoxicillin 500 mg capsule TAKE 1 CAPSULE BY MOUTH EVERY 8 HOURS FOR 7 DAYS active Not Available Not Available No t Available terazosin 5 mg capsule TAKE 1 CAPSULE BY MOUTH AT BEDTIME active Not Available Not Available No t Available methocarbamo l 500 mg tablet TAKE 1 TABLET BY MOUTH THREE TIMES DAILY NEEDED FOR MUSCLE SPASMS active Not Available Not Available No t Available tizanidine 2 mg tablet TAKE 1 TABLET BY MOUTH TWICE DAILY NEEDED FOR SHOULDER PAIN, MAY INCREASE TO 2 TABLETS as tolerated active Not Available Not Available No t Available trazodone 50 mg tablet TAKE 1 TABLET BY MOUTH AT BEDTIME NEEDED FOR INSOMNIA active Not Available Not Available No t Available cetirizine 10 mg tablet TAKE 1 TABLET BY MOUTH EVERY DAY IN THE MORNING active Not Available Not Available No t Available cefpodoxime 200 mg tablet TAKE 1 TABLET BY MOUTH EVERY 12 HOURS FOR 7 DAYS active Not Available Not Available N ot Available azithromycin 250 mg tablet TAKE 2 TABLETS BY MOUTH ON DAY 1, THEN TAKE 1 TABLET DAILY ON DAYS 2-5 active Not Available Not Available No t Available tizanidine 4 mg tablet TAKE 1 TABLET BY MOUTH EVERY 8 HOURS NEEDED FOR SPASMS active Not Available Not Available No t Available benzonatate 200 mg capsule TAKE 1 CAPSULE BY MOUTH THREE TIMES DAILY NEEDED FOR COUGH active Not Available Not Available No t Available meloxicam 15 mg tablet TAKE 1 TABLET BY MOUTH ONCE DAILY WITH FOOD OR MILK. active Not Available Not Available No t Available sucralfate 1 gram tablet TAKE 1 TABLET BY MOUTH FOUR TIMES DAILY BEFORE BREAKFAST, LUNCH, DINNER, AND AT BEDTIME active Not Available Not Available N ot Available phenazopyrid ine 200 mg tablet TAKE 1 TABLET BY MOUTH THREE TIMES DAILY FOR 2 DAYS NEEDED active Not Available Not Available No t Available ondansetron HCl 4 mg tablet DISSOLVE 1 TABLET BY MOUTH EVERY 8 HOURS NEEDED FOR NAUSEA AND VOMITING FOR UP TO 7 DAYS active Not Available Not Available No t Available prednisone 20 mg tablet TAKE 2 TABLETS BY MOUTH DAILY active Not Available Not Available Not Available ciprofloxaci n 500 mg tablet TAKE 1 TABLET BY MOUTH TWICE DAILY FOR 7 DAYS active Not Available Not Available No t Available sulfamethoxa zole 800 mg-trimethop rim 160 mg tablet TAKE 1 TABLET BY MOUTH TWICE DAILY FOR 7 DAYS active Not Available Not Available No t Available tramadol 50 mg tablet TAKE 1 TABLET BY MOUTH EVERY 6 HOURS NEEDED FOR PAIN active Not Available Not Available No t Available acetaminophe n 500 mg tablet TAKE 1 TABLET BY MOUTH EVERY 6 HOURS NEEDED FOR MILD PAIN active Not Available Not Available No t Available acetaminophe n ER 650 mg tablet,exten ded release TAKE 1 TABLET BY MOUTH EVERY 8 HOURS NEEDED FOR PAIN, DO NOT BREAK, CRUSH, DISSOLVE OR CHEW active Not Available Not Available No t Available ketorolac 10 mg tablet TAKE 1 TABLET BY MOUTH EVERY 8 HOURS NEEDED active Not Available Not Available No t Available hydromorphon e 2 mg tablet TAKE 1 TABLET BY MOUTH FOUR TIMES DAILY NEEDED FOR SEVERE PAIN active Not Available Not Available No t Available famotidine 20 mg tablet TAKE 1 TABLET BY MOUTH TWICE DAILY active Not Available Not Available No t Available methocarbamo l 750 mg tablet TAKE 1 TABLET BY MOUTH TWICE DAILY NEEDED FOR MUSCLE SPASMS active Not Available Not Available No t Available terazosin 2 mg capsule TAKE 1 CAPSULE BY MOUTH AT BEDTIME active Not Available Not Available No t Available tamsulosin 0.4 mg capsule TAKE 1 CAPSULE BY MOUTH AT BEDTIME active Not Available Not Available No t Available econazole nitrate 1 % topical cream APPLY TOPICALLY TO THE AFFECTED AREA OF GROIN TWICE DAILY active Not Available Not Available No t Available pantoprazole 40 mg tablet,delay ed release active Not Available Not Available N ot Available lidocaine 5 % topical patch APPLY 1 PATCH TOPICALLY TO SKIN, LEAVE ON FOR 12 HOURS AND OFF FOR 12 HOURS DIRECTED IN THE MORNING OR DIRECTED BY PHYSICIAN. active Not Available Not Available N ot Available ibuprofen 400 mg tablet TAKE 1 TABLET BY MOUTH EVERY 6 HOURS NEEDED FOR PAIN active Not Available Not Available No t Available gabapentin 300 mg capsule TAKE 1 CAPSULE BY MOUTH DAILY AT BEDTIME NEEDED FOR PAIN active Not Available Not Available No t Available hydrocortiso ne 2.5 % topical cream APPLY PEA SIZED AMOUNT TO SKIN TWICE DAILY FOR 1 WEEK active Not Available Not Available No t Available bisacodyl 5 mg tablet,delay ed release TAKE 2 TABLETS BY MOUTH AT BEDTIME active Not Available Not Available No t Available nystatin 100,000 unit/gram topical powder APPLY TOPICALLY TO THE groin area TWICE DAILY active Not Available Not Available Not Available lorazepam 1 mg tablet TAKE 1 TABLET BY MOUTH AT BEDTIME NEEDED FOR SLEEP active Not Available Not Available No t Available ibuprofen 600 mg tablet TAKE 1 TABLET BY MOUTH EVERY 8 HOURS FOR MILD PAIN. active Not Available Not Available N ot Available cefuroxime axetil 500 mg tablet TAKE 1 TABLET BY MOUTH TWICE DAILY active Not Available Not Available No t Available polyethylene glycol 3350 17 gram/dose oral powder ONLY MIX HALF BOTTLE INTO ONE 32OZ GATORADE BOTTLE AND CONSUME TODAY STARTNIG AT 4PM active Not Available Not Available No t Available levofloxacin 500 mg tablet TAKE 1 TABLET BY MOUTH DAILY FOR 7 DAYS active Not Available Not Available N ot Available methylpredni solone 4 mg tablets in a dose pack FOLLOW PACKAGE DIRECTIONS active Not Available Not Available N ot Available fluticasone propionate 50 mcg/actuatio n nasal spray,suspen christina INSTILL 1 SPRAY IN EACH NOSTRIL ONCE DAILY IN THE MORNING active Not Available Not Available No t Available naproxen 500 mg tablet TAKE 1 TABLET BY MOUTH TWICE A DAY active Not Available Not Available No t Available amoxicillin 875 mg-potassium clavulanate 125 mg tablet TAKE 1 TABLET BY MOUTH TWICE DAILY FOR 10 DAYS active Not Available Not Available No t Available Ventolin HFA 90 mcg/actuatio n aerosol inhaler INHALE 2 PUFFS EVERY 4 HOURS NEEDED FOR WHEEZING OR SHORTNESS OF BREATH active Not Available Not Available No t Available oxycodone 5 mg tablet TAKE 1 TABLET BY MOUTH EVERY 8 HOURS NEEDED FOR PAIN active Not Available Not Available No t Available estradiol 0.025 mg/24 hr semiweekly transdermal patch APPLY 1 PATCH TWICE A WEEK DIRECTED active Not Available Not Available No t Available cyclobenzapr ine 5 mg tablet TAKE 1 TABLET BY MOUTH THREE TIMES DAILY NEEDED FOR MUSCLE SPASMS. active Not Available Not Available No t Available alfuzosin ER 10 mg tablet,exten ded release 24 hr TAKE 10MG BY MOUTH AT BEDTIME FOR 30 DAYS TAKE BEFORE BEDTIME active Not Available Not Available No t Available nitrofuranto in monohydrate/ macrocrystal s 100 mg capsule TAKE 1 CAPSULE BY MOUTH TWICE DAILY active Not Available Not Available No t Available pregabalin 25 mg capsule TAKE 1 CAPSULE BY MOUTH TWICE DAILY active Not Available Not Available No t Available chlorhexidin e gluconate 0.12 % mouthwash Swish 1 capful for 1 minute at night before bedtime. Spit, do not swallow. Do not eat or drink anything for 30 minutes following swishing. Do not use for more than 2 weeks to prevent tooth staining active Not Available Not Available No t Available Compact Space Chamber USE WITH INHALER EVERY 4 HOURS NEEDED (for asthma) active Not Available Not Available No t Available Paxlovid 300 mg (150 mg x 2)-100 mg tablets in a dose pack TK 2 NIRMATRELVI R TS AND 1 RITONAVIR T TOGETHER PO BID FOR 5 DAYS active Not Available Not Available No t Available Vitals Date Recorded Oxygen saturation Oxygen saturation in Arterial blood by Pulse oximetry Respiratory rate Body temperature Body weight Body height Heart rate Systolic And Diastolic Provider Name and Address Organization Details Last Updated DateTime 5 98 % 98 % 14 /min 98 [degF] 887537 g 167.64 cm 80 /min 139/84 mm[Hg] Not Available [facility] [employer] 5 17:08:54 Date Recorded Body temperature Oxygen saturation Oxygen saturation in Arterial blood by Pulse oximetry Respiratory rate Heart rate Systolic And Diastolic Provider Name and Address Organization Details Last Updated DateTime 4 98 [degF] 99 % 99 % 18 /min 50 /min 127/79 mm[Hg] Not Available [facility] 4 15:13:09 Date Recorded Respiratory rate Oxygen saturation Oxygen saturation in Arterial blood by Pulse oximetry Body height Heart rate Body temperature Body weight Systolic And Diastolic Provider Name and Address Organization Details Last Updated DateTime 14 /min 98 % 98 % 152.4 cm 80 /min 98.4 [degF] 86780.4 g 140/84 mm[Hg] Not Available [facility] 15:56:06 Date Recorded Body temperature Heart rate Respiratory rate Systolic And Diastolic Provider Name and Address Organization Details Last Updated DateTime 11/18/2023 97.1 [degF] 60 /min 16 /min 109/63 mm[Hg] Not Available [facility] 13:06:39 Date Recorded Body temperature Heart rate Respiratory rate Systolic And Diastolic Provider Name and Address Organization Details Last Updated DateTime 03/24/2024 98.5 [degF] 65 /min 16 /min 100/56 mm[Hg] Not Available [facility] 14:45:30 Social History None recorded. Functional Status None recorded. Mental Status None recorded. Family History Nothing Reported. Medical History No medical history recorded. Past Encounters Encounter ID Performer Location Encounter Start Date Encounter Closed Date Diagnosis/Indication Diagnosis SNOMED-CT Code Diagnosis ICD10 Code Diagnosis IMO Codes Diagnosis Note [id number] TRESA ESPINAL MD [facility] - [facility] [phone] 10/17/2023 15:12:51 10/19/2023 16:23:16 Discharge from penis 4715387 R36.9 Urinary symptoms 9467699 08 R39.9 Dizziness 587907444 R42 Chronic low back pain 27 1994633 M54.50 [id number] Jordan Guerra MD [facility] - [facility] [address] [place] [phone] 11/13/2023 15:30:00 11/14/2023 15:04:19 Constipation 10610119 K59.00 Recent ED stay for constipati on, currently abdomen with minimal pain and mild distention only; has had BM's since taking Miralax. Rondon was placed in ED which is now fallen out. Currently no reported dysuria (unable to provide sample now to check). Euvolemic. Advised patient to continue to take Tamsulosin and Miralax as prescribed by ED. Discussed red flag signs for which to seek higher level of care. [id number] Napoleon Kerr MD [facility] - [facility] [address] [place] [phone] 11/18/2023 13:06:37 11/19/2023 13:27:53 Acute pyelonephritis [id number] N10 [id number] Fadia Mtz MD [facility] - [facility] [address] [place] [phone] 03/24/2024 14:45:24 04/05/2024 21:14:15 Urinary symptoms 097813073 R39.9 [id number] LLOYD DOMINGUEZ MD [facility] - [facility] [address] [place] [phone] 08/19/2024 17:07:07 08/20/2024 12:42:33 Pain of right shoulder joint [id number] 3172273 M25.511 Evaluation in the field was performed by my account general manager colleague, as noted above, I provided real-time direction and supervisio n for this visit. The evaluation revealed a 64-year-ol d transgende r woman with a history of deafness, coronary artery disease, hypertensi on, anxiety disorder, and chronic back pain, presenting with complaints of right-side d pain, primarily in the right shoulder radiating to the right chest and leg. She denies substernal chest pain, shortness of breath, nausea, or vomiting. The patient was seen in the ED on 08/18 and diagnosed with right shoulder tendonitis . She was prescribed oral ketorolac 10 mg and trazodone. She took her oral Toradol 2 hours prior to the visit. She denies numbness or tingling in the arm and hand. VS stable.Exa m: Limited range of motion in the right arm due to pain. Positive circulatio n, sensation, and motor function intact. No neurologic al deficits noted.ECG: First-degr ee AV block noted. No ST-T changes suggestive of acute ischemia.A llergies reviewed. Impression :Right shoulder tendinitis Plan:-Disc ussed with the patient that since she had recently taken PO ketorolac, IM ketorolac was contraindi cated. She requested other pain medication , but it was explained that our service cannot provide opioid pain medication s.-Prescri ption for Medrol pack was sent to her pharmacy to help with inflammati on.-Advise d the patient to follow up with her PCP regarding a possible orthopedic referral for further management , including considerat ion of shoulder injections .-Red flags discussed with the patient, including worsening pain, weakness, numbness, tingling, or changes in motor function Primary care, consider__ _ Dispositio n: We discussed the diagnostic uncertaint y of home visits and the risk associated with this. In this case, the patient and I felt this to be an acceptable and reasonable amount of risk given the benefit of avoiding an ED visit. We discussed the need to seek care urgently/e mergently in the setting of any new or worsening serious symptoms, particular ly worsening pain, weakness, numbness, tingling, or changes in motor function Health Concerns Section Related Observation LastModified by Organization Detai ls LastModified Time None Recorded Concern Status LastModified by Organization Details LastModified Time None Recorded Advance Directives Directive None Recorded Payers Insurance Date Sequence Insurance Name Policy Number Policy Francis Covered Member ID Francis Member ID Guarantor Name 08/19/2024 1 [facility] - DOS ON OR AFTER 2022 - DUAL ELIGIBLE - DETENTION OPTIONS AND ONE CARE (MEDICARE REPLACEMENT/ADV ANTAGE - HMO) Jacob Long [id number] Jacob Long Notes Date Note Type Note Provider Name and Address Organization Details Recorded Time 10/17/2023 text/html HPI: Muscles tensing, heat and pain radiating from abdomen, sweating ...................... ...................... ...................... ...................... ...................... ...................... ......... CRC Nurse Triage Notes (Sunny Morris): Comments: Outreach call to Partima Meade and the member to obtain additional information - - Member is JAYNE ...................... ...................... ...................... ...................... ...................... ...................... ......... Principal Database Developer Note From Jenn Gonsalez: Sent to a call for a pt complaining of abd pain. SC8 arrives on scene, pt is alert and oriented, airway is patent. Pt is hard of hearing, and has difficulty with sight/reading. Pt's friend is also hard of hearing, so communication is written by medic and pt's friend translates via sign language. Pt complains of chronic diffuse abd pain and chronic back pain. Pt has back surgery scheduled for 11/24. Pt complains of dizziness, productive cough with white phlegm, worsened diffuse abd pain(described as burning, sometimes radiating to chest), foul smelling urine, yellow penile discharge, and chills x 2 days. Pt denies morrissey, cp, sob, n/v/d, rash or itchy genital area, fever, or loc. Pt has limited PO intake due to burning pain. (sitting) BP:127/79, P:50, RR:18, SpO2:99% RA, T:98.0; (standing) BP:140/84, P:58; Head: unremarkable; Lung sounds: clear bilaterally; Abdomen: bowel sounds present, soft, distended(at baseline per pt), RLQ tenderness; Back: no tenderness; Extremities: unremarkable; Skin: pink, warm, dry; Rapid Covid test: neg; Rapid flu test: neg; 12 lead ECG: sinus bradycardia(uploaded to [facility]); Urine sample obtained; urine dip performed: (uploaded to [employer]); IV access/venous blood draw initiated; Chem8+ results: uploaded to [employer]. [facility] consulted, pt unable to state when he was last sexually active with his ex boyfriend; [facility] orders Ceftriaxone 500mg IV, Ketorolac 30mg IV, and Normal Saline 1 liter IV. [facility] orders urine culture, syphillis, HIV, Chlamydia, and Gonorrhea tests to be sent to [facility]. Ceftriaxone 500mg IV, Ketorolac 30mg IV, and Normal Saline 1 liter IV administered. Pt reports slight improvement. Red flags discussed. Pt given [employer] phone number for future use. Pt has no further questions. [facility] Lab Orders: culture, urine: Performed urinalysis, dipstick: Performed BMP, serum or plasma: Performed CT, DNA, qual, PCR, unspecified specimen: Performed neisseria gonorrhoeae, culture, unspecified specimen: Performed unlisted lab - HIV Ab-Ag w/rflx to HIV qnt: Performed unlisted lab - HIV-1 RNA quant (viral load), plasma: Performed RPR (rapid plasma reagin), titer, serum: Performed [facility] Medication Orders: ketorolac 30 mg/mL injection solution: Administered sodium chloride 0.9 % intravenous solution: Administered ceftriaxone 500 mg solution for injection: Administered ...................... ...................... ...................... ...................... ...................... ...................... ......... Disposition: Fulfilled TRESA ESPINAL MD [address] [place] [address],[address], [place], [address], [employer] 10/17/2023 19:48:05 11/13/2023 text/html ROS as noted in the [facility] CRC Nurse Triage Notes (Arlet Perdue): Chief Complaints: Syncope/Dizziness/Ligh theadedness PMH: Other Allergies: Unknown Comments: 1000 The member is calling relay services with complaints of not having pads. his bed is wet, member was upset that I was unable to send someone. I asked if he had UTI symptoms , he wanted someone to change his bedding , I offered to email his cp for assistance 1300 Member called again and stated that he has increased weakness and fatigue. Member is c/o pain and possible UTI due to increased odor Very difficult to get information with the relay servicer called CRU M ember call transferred to this CRU nurse, call completed with helpdesk specialist line. Member c/o back pain, constipation, difficulty urinating, malodorous urine. Onset of yesterday. last BM, yesterday. Member was seen in ER yesterday for these sx's. He was prescribed tamsulosin and miralax. Member started tamsulosin, but has not taken miralax. Member is requesting home visit to evaluate him again today. Member states d/c instructions are not clear to him. Explained to member indication for miralax and encouraged member to take, as this will aid in having bm. Member is not in agreement with this plan, and is requesting a home visit to discuss his d/c instructions and check his urine. PMH: MDD, deafness, neck pain, bilateral hip pain, other chronic pain, dorsalgia Member has a rondon in place that seems to be leaking ...................... ...................... ...................... ...................... ...................... ...................... ......... Principal Database Developer Note From Tyrell Gardner: Are patient conscious alert and oriented times three complains of constipation. 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 Patient presents paperwork showing he was at [facility] today and had a rondon taken out. Pt it s he is leaking from urethra. Patient declines to give urine sample states he s not able to do that at this time. I offered to wait pt declined. Patient has also been in continent of feces small firm, bowel movements. Patient states he s been using MiraLAX. Patient denies any other pain or complaints denies nausea, vomiting, abdominal pain, or any other. Patient pink, warm and dry secondary exam unremarkable abdomen not distended, but firm in all martinez, consistent with constipation. Frequent productive cough. Also noted. Lung sounds clear. Negative increased work of breathing. Patient negative for Covid and flu via rapid POC . Further discussion reveals patient had a poor understanding of MiraLAX dosing. [facility] encourages patient to continue using MiraLAX dosing explained in written form so the patient understands. Red flags and patient education discussed. ...................... ...................... ...................... ...................... ...................... ...................... ......... Disposition: Fulfilled Jordan Guerra MD [address] [place] [address],[address], [place], [address], [employer] 11/13/2023 18:39:45 11/18/2023 text/html ROS as noted in the HPI This was a supervised home visit with account general manager Ervin Muñoz. HPI: Off and on burning during urination. Went to ED the other day but still not feeling well. Member stopped taking medication prescribed by ED because he was urinating too much. ...................... ...................... ...................... ...................... ...................... ...................... ......... CRC Nurse Triage Notes (Arlet Perdue): Comments: CRC RN DID NOT NEED FURTHER INFO ...................... ...................... ...................... ...................... ...................... ...................... ......... Principal Database Developer Note From Ervin Muñoz: Pt reports he was dx with pylo yesterday at [place] ED, d/c with cefpodoxime 200 mg bid for 7 days. Pt also has PCP f/u tomorrow at 315. Pt reporting still having burning with urination and suprapubic pressure. Pt reports eating and drinking normally. Pt is alert, NAD. VSS. Afebrile. Non focal neuro exam. Lungs CTA. ABD soft, non tender, non distended. No CVA tenderness. No LE edema. Pt requesting that I call the PCP s office to see if they will see him today. I contacted the office and the pt currently has the soonest appointment which is tomorrow. Pt instructed to continue to stay well hydrated, take his ABX and to seek emergent medical care for new or worsening sx, which are reviewed with him. ...................... ...................... ...................... ...................... ...................... ...................... ......... Disposition: Fulfilled Napoleon Kerr MD [address] [facility],[address], [place], [address], [place] [employer] 11/18/2023 15:33:18 03/24/2024 text/html HPI: deafness, gender dysphoria, BPH/UTI, Hep B core antibody. Pt is offered [facility] visit today but, declines. Pt reports rondon catheter which was placed last week has bad odor. bladder feels heavy with bilateral lower extremity swelling and stiffness, unable to ambulate as normal. ...................... ...................... ...................... ...................... ...................... ...................... ......... CRC Nurse Triage Notes (Arlet Perdue): Chief Complaints: Abdominal Pain, UTI/Pyelonephritis, Edema PMH: Heart Disease, Hypertension Comments: Outreach completed to Member with ASL line, goes by Ashley , Member feels she has a possible Retention, with rondon since this am, no changes in color, Legs are also swollen, Left more than right. Member does take a diuretic ...................... ...................... ...................... ...................... ...................... ...................... ......... Baseline Information: Baseline Creatinine: 1.02 mg/dL Principal Database Developer Organization Information for Elvin Humphrey [employer] Business Legal Name: [employer]. Address: [address] [place] [address], Elementary Librarian: Terry FLORES No.: [id number] Principal Database Developer POC Test Results from Elvin Humphrey Urine Dipstick (15:54:39) Urine leukocytes: + ABDELRAHMAN Urine nitrites: + NIT Urine urobilinogen: - URO Urine protein: - PRO Urine pH: 6.0 pH Urine blood: + BLO Urine specific gravity: 1.010 SG Urine ketones: + KET Urine bilirubin: - NIMCO Urine glucose: - GLU ...................... ...................... ...................... ...................... ...................... ...................... ......... Principal Database Developer Note From Elvin Humphrey: Dispatched to the call address for the Pt with UTI symptoms. Pt is deaf and is not able to communicate via pen and paper. Video call with ASL interrupter used. Pt is Cis male but identifies as female. She stated that she was too upset/frustrated to talk and instructed us to talk to her roommate. Roommate initially talked to us and gave some information but then made another call and started to ignore us. After speaking to the doctor roommate was more willing to help and communicated with pen and paper. Pt states her belly feels full, her legs hurt and has burning. Pt recently had a rondon placed by [facility] but was not given any instructions or care guide. Pt was found sitting in living room chair, CAOx4, airway open and patent, breathing non labored, -JVD, -HEENT, skin PWD with good turgor, mucous membranes pink and moist, +CMSx4, A-febrile, -CVA tenderness, abd somewhat firm/distended. Pts rondon appeared to be blocked. There was no access port to flush the system but it was able to be pulled apart and both ends were flushed and urine was seen flowing into the bag again. UA (+). Culture obtained. [facility] consulted. Script called into preferred pharmacy. Red flags discussed. ALL times are approx. ...................... ...................... ...................... ...................... ...................... ...................... ......... Disposition: Fulfilled Fadia Mtz MD [address] [place] [address],[address], [place], [address], [employer] 04/05/2024 19:40:24 08/19/2024 text/html ROS as noted in the HPI HPI: Call to Ashley Angeles for triage below with ASL network operations center engineer. Patient reports having chest pain and arm pain x 2 days. Pt having pain that is diffuse over chest intermittent, left arm and left flank pain. No SOB, MORRISSEY or dizziness. Denies any cough. No urinary sx. Pt unable to come into ur walk in center. Agrees to [facility] for evaluation. Confirmed demographics and allergies. ...................... ...................... ...................... ...................... ...................... ...................... ......... CRC Nurse Triage Notes (Arlet Perdue - RN): Chief Complaints: Chest pain PMH: Coronary Artery Disease, Hypertension, Anxiety Disorder, Chronic Back Pain PMH Reviewed at 08/19/2024 - 15:09 Allergies Reviewed at 08/19/2024 - : Comments: Verified address on the call. Pain is going into the arm and chest and lower back. She feels like her leg muscles , She refusing the ER at this time. She is refusing the ER as she is unable to get out of the home. Pt denies any cardiac history Principal Database Developer Organization Information for Tyrell Gardner [employer] Legal Name: [facility] [employer] Address: [address] [place] [address], [place] [address], Elementary Librarian: Hu Gamino MD [place] No.: [id number] Principal Database Developer POC Test Results from Tyrell Gardner EKG (17:06:14) EKG test performed. Attachments uploaded as part of this test result can be found under Documents section. ...................... ...................... ...................... ...................... ...................... ...................... ......... Principal Database Developer Note From Tyrell Gardner: Pt on right side in bed. Patient deaf no doll surgeon available information through written communication and onscene assistance from friend. Pt complains of right shoulder pain x days. Pt seen at ED yesterday for same with xray. Pt prescribed toradol PO for pain. Pt reports pain unchanged requests pain meds or inpatient stay. Pt reports pain radiates to torso and right leg. Pt denies chest pain, nausea vomiting or diarrhea, headache or other. Patient states she took Toradol at 3 PM today with little relief. Patient pink, warm, dry, limited range of motion, right arm due to pain, positive CSM and all. Good skin to turgor positive full sentences negative increase work of breathing. Ecg to [facility]. [facility] prescribes, methylprednisone to patient s local pharmacy. Patient reports if pain continues he l l return to emergency room. Red flags, patient education discussed. ...................... ...................... ...................... ...................... ...................... ...................... ......... [facility] Consulted: Lloyd Dominguez ...................... ...................... ...................... ...................... ...................... ...................... ......... Disposition: Solitario DOMINGUEZ MD [address] [facility],[address], [place], [address], KALEB - FAISAL YA 08/20/2024 00:32:06
--- OUTSIDE RECORDS SUMMARY | 2025-06-03 17:16 | XMS_ITS | Encounter Summary ---
Author Organization [employer] Address [address] [facility] [address] [place] [address] Care Team Providers Care Clinical Psychology Professor Name Role Phone Ligia Becerra MD Primary Care Provider [phone] Jair Pro MD Unavailable [phone] Tim Herrera Unavailable Trung Slade MD Unavailable [phone] Reason for Visit * Reason Onset Date Comments Nurse Triage 12/30/2024 Encounter Details Date Type Department Care Team (Late st Contact Info) Description 12/30/2024 Telephone [facility] MEDICINE [address] [place], [place] [phone] Ligia Becerra MD [address] [place], [place] [phone] Nurse Triage Social History Tobacco Use Types [...] * Telephone Encounter - Darling Mendes - 12/30/2024 3:22 PM EDT Symptoms: Headache, Spitting Up, Abdominal Pain - Male Outcome: Talk to a nurse or provider within 15 minutes Reason: Severe pain now The caller accepted this outcome. Contact pt at [phone] (endoscope technician) * Telephone Encounter - Shannon Angeles - 12/30/2024 9:34 AM EDT Symptoms: Headache, Colds, Lethargic (Tired), Eye Redness Without Pus or Discharge, Loss of Appetite- Painful, Cough Outcome: Schedule a same-day appointment or talk to a nurse or provider today Reason: Caller denied all higher acuity questions The caller accepted this outcome. [phone] documented in this encounter Plan of Treatment Upcoming Encounters Date Type Department Care Team (Late st Contact Info) Description 06/13/2025 10:45 AM EST Office Visit [facility] MEDICINE [address] [place] [address] Ligia Becerra MD [address] [place] [address] 06/24/2025 11:45 AM EST Office Visit [facility] MEDICINE [address] [place] [address] Chapo Bender MD [address] [place] [address] 07/25/2025 11:00 AM EST Office Visit [facility] OPTOMETRY [address] [place] [address] TarBritt burks, OD [address] [place] [address] documented as of this encounter Visit Diagnoses Not on filedocumented in this encounter Additional Health Concerns Assessment Noted Time PHQ-9 Depression Total Score: 3 03/18/20 24 11:59 AM EDT documented as of this encounter Care Teams Clinical Psychology Professor Relationship Specialty Start Date End Date Ligia Becerra MD [address] [place] [address] PCP - General Family Medicine 07/22/22 Jair Pro MD [address] [place] [address] Urology 07/24/24 Tim Herrera [address] [place] [address] Neurosurgery 07/24/24 Trung Slade MD [address]rd [place] [address] Gastroenterology 10/19/24 Chucho Sexton [facility] Case Management 06/03/25 documented as of this encounter
--- OUTSIDE RECORDS SUMMARY | 2025-06-03 17:16 | XMS_ITS | Encounter Summary ---
Author Organization [employer] Address [address] [facility] [address] [place] [address] Care Team Providers Care Administration Dean Name Role Phone Ligia Becerra MD Primary Care Provider [phone] Jair Pro MD Unavailable [phone] Tim Herrera Unavailable Trung Slade MD Unavailable [phone] Reason for Visit * Reason Onset Date Comments ER Follow-up 10/14/2023 Encounter Details Date Type Department Care Team (Late st Contact Info) Description 10/14/2023 Telephone [facility] MEDICINE [address] [place], [place] [phone] Ligia Becerra MD [address] [place], [place] [phone] ER Follow-up Social History Tobacco Use Types Packs/Day Years Used Date Smoking Tobacco: Never Passive Smoke Exposure: Never Smokeless Tobacco: Never Alcohol Use Standard Drinks/Week Comments Never 0 (1 standard drink = 0.6 oz pur e alcohol) Depression Answer Date Recorded Patient Health Questionnaire-9 Score 18 03/20/2023 Housing Stability Answer Date Recorded What is your housing situation today? I have joide hernandez 05/26/[address] you [...] from Pt calling to inform went to [facility] ER yesterday 10/13/23 . Informs was prescribed medication but was sent to the incorrect pharmacy and pt does not have transportation. Pt does not know name ofmed . Please call pt to clarify . Note below taken from [facility] discharge summery medication in question is oxycodone, will send message to PCP to advise. Reevaluation #3: 10/14/23 14:55 received phone call from patient via sterile processing manager. Patient stating that oxycodone prescription was sent to incorrect pharmacy. Upon review, appears prescription was rejected. Initial order canceled. New prescription for 4 tabs of oxycodone 5 mg sent to [facility] in [place]. * Telephone Encounter - Yareli Billingsley - 10/14/2023 12:41 PM EST TC from Pt calling to inform went to [facility] ER yesterday 10/13/23 . Informs was prescribed medication but was sent to the incorrect pharmacy and pt does not have transportation. Pt does not know name ofmed . Please call pt to clarify . documented in this encounter Plan of Treatment Upcoming Encounters Date Type Department Care Team (Late st Contact Info) Description 06/13/2025 10:45 AM EST Office Visit [facility] MEDICINE [address] [place] [address] Ligia Becerra MD [address] [place] [address] 06/24/2025 11:45 AM EST Office Visit [facility] MEDICINE [address] [place] [address] Chapo Bender MD [address] [place] [address] 07/25/2025 11:00 AM EST Office Visit [facility] OPTOMETRY [address] [place] [address] TarBritt burks, OD [address] [place] [address] documented as of this encounter Visit Diagnoses Not on filedocumented in this encounter Additional Health Concerns Assessment Noted Time PHQ-9 Depression Total Score: 18 023 3:56 PM EDT documented as of this encounter Care Teams Administration Dean Relationship Specialty Start Date End Date Ligia Becerra MD [address] [place] [address] PCP - General Family Medicine 07/22/22 Jair Pro MD [address] [place] [address] Urology 07/24/24 Tim Herrera [address] [place] [address] Neurosurgery 07/24/24 Trung Slade MD [address] [place] [address] Gastroenterology 10/19/24 [facility] 06/03/25 documented as of this encounter
--- OUTSIDE RECORDS SUMMARY | 2025-06-03 17:16 | XMS_ITS | Encounter Summary ---
Author Organization [employer] Address [address] [facility] 7t [place] [address] Care Team Providers Care Machine Maintenance Repairer Name Role Phone Ligia Becerra MD Primary Care Provider [phone]- [phone] Jair Pro MD Unavailable Tim Herrera Unavailable Trung Slade MD Unavailable [phone] Reason for Visit * Reason Onset Date Comments PT1 10/20/2024 Encounter Details Date Type Department Care Team (Late st Contact Info) Description 10/20/2024 Telephone [facility] 230 [place], [place] [phone] Ligia Becerra MD 230 [place] [address] PT1 Social History Tobacco Use Types Packs/Day [...] Y/N: Yes Provider name or facility name: [address] [place] [address] Escort needed: Y/N: Yes Do you have a wheelchair: Y/N: No ( has walker) If yes- Manual or electric: N/A Visits: (1x monthly) Appt November 08 documented in this encounter Plan of Treatment Upcoming Encounters Date Type Department Care Team (Late st Contact Info) Description 06/13/2025 10:45 AM EST Office Visit [facility] 230 [place] [address] Ligia Becerra MD 230 [place] [address] 06/24/2025 11:45 AM EST Office Visit [facility] 230 [place] [address] Chapo Bender MD 230 [place] [address] 07/25/2025 11:00 AM EST Office Visit [facility] OPTOMETRY 267 [place] [address] Tarka, Britt, OD [address] [place] [address] documented as of this encounter Visit Diagnoses Not on filedocumented in this encounter Additional Health Concerns Assessment Noted Time PHQ-9 Depression Total Score: 3 03/18/20 11:59 AM EDT documented as of this encounter Care Teams Machine Maintenance Repairer Relationship Specialty Start Date End Date Ligia Becerra MD 230 [place] [address] PCP - General Family Medicine 07/22/22 Jair Pro MD [address] [place] [address] Urology 07/24/24 Tim Herrera [address] [place] [address] Neurosurgery 07/24/24 Trung Slade MD [address] 3rd [place] [address] Gastroenterology 10/19/24 [facility] 06/[facility]/25 documented as of this encounter
--- OUTSIDE RECORDS SUMMARY | 2025-06-03 17:16 | XMS_ITS | Encounter Summary ---
Author Organization [employer] Address 75 [facility] 7t [place] [address] Care Team Providers Care Drum Loader And Unloader Name Role Phone Ligia Becerra MD Primary Care Provider Jair Pro MD Unavailable Tim Herrera Unavailable Trung Slade MD Unavailable [phone] Encounter Details Date Type Department Care Team (Latest Contact Info) Description 06/19/2022 Abstract [facility] CONVERSIONS Dental, Provider, DDS Social History [...] Description 06/13/2025 10:45 AM EST Office Visit [facility] MEDICINE [address] [place] [address] [phone] Ligia Becerra MD [address] [place] [address] [phone] 06/24/2025 11:45 AM EST Office Visit [facility] [address] [place] [address] [phone] Chapo Bender MD [address] [place] [address] 07/25/2025 11:00 AM EST Office Visit [facility]ET[facility] [address] [place] [address] Britt Zurita, OD [address] [place] [address] documented as of this encounter Visit Diagnoses Not on filedocumented in this encounter Care Teams Drum Loader And Unloader Relationship Specialty Start Date End Date Ligia Becerra MD 230 [place] [address] PCP - General Family Medicine 07/22/22 Jair Pro MD [address] [place] [address] Urology 07/24/24 Tim Herrera [address] [place] [address] Neurosurgery 07/24/24 Trung Slade MD [address] 3rd [place] [address] Gastroenterology 10/19/24 [facility]ucho Sexton [facility] 06/03/25 documented as of this encounter
--- OUTSIDE RECORDS SUMMARY | 2025-06-03 17:16 | XMS_ITS | Encounter Summary ---
Author Organization [employer] Address 75 [facility] 7t [place] [address] Care Team Providers Care Die Operator Name Role Phone Ligia Becerra MD Primary Care Provider [phone]- [phone] Jair Pro MD Unavailable Tim Herrera Unavailable Trung Slade MD Unavailable [phone] Reason for Visit * Reason Onset Date Comments Requesting A Phone Call 09/18/2022 Encounter Details Date Type Department Care Team (Late st Contact Info) Description 09/18/2022 Telephone [facility] MEDICINE 230 [place], [place] [phone] Ligia Becerra MD 230 [place] [address] Requesting A Phone Call Social History Tobacco [...] specific in why. Please contact pt at [phone] documented in this encounter Plan of Treatment Upcoming Encounters Date Type Department Care Team (Late st Contact Info) Description 06/13/2025 10:45 AM EST Office Visit [facility] MEDICINE [address] [place] [address] Ligia Becerra MD 230 [place] [address] 06/24/2025 11:45 AM EST Office Visit [facility] MEDICINE [address] [place] [address] Chapo Bender MD 230 [place] [address] 07/25/2025 11:00 AM EST Office Visit [facility] OPTOMETRY 267 [place] [address] Britt Zurita, OD 267 [place] [address] documented as of this encounter Visit Diagnoses Not on filedocumented in this encounter Care Teams Die Operator Relationship Specialty Start Date End Date Ligia Becerra MD 230 [place] [address] PCP - General Family Medicine 07/22/22 Jair Pro MD [address] [place] [address] Urology 07/24/24 Tim Herrera [address] [place] [address] Neurosurgery 07/24/24 Trung Slade MD [address] 3rd [place] [address] Gastroenterology 10/19/24 Chucho Sexton [facility] Case Management 06/03/25 documented as of this encounter
--- OUTSIDE RECORDS SUMMARY | 2025-06-03 17:16 | XMS_ITS | Encounter Summary ---
Author Organization [email or web address] Address 75 [facility] 7t [place] [address] Care Team Providers Care Mat Tester Name Role Phone Ligia Becerra MD Primary Care Provider [phone] Jair Pro MD Unavailable Tim Herrera Unavailable Trung Slade MD Unavailable [phone] Reason for Visit * Reason Onset Date Comments Created in error 04/09/2024 Encounter Details Date Type Department Care Team (Late st Contact Info) Description 04/09/2024 Telephone [facility] 230 [place], [place] [phone] Ligia Becerra MD 230 [place] [address] Created in error Social History Tobacco Use [...] the past 12 months, has t he [employer] gas, oil or water company threatened to [...] Description 06/13/2025 10:45 AM EST Office Visit [facility] [address] [place] [address] Ligia Becerra MD 230 [place] [address] 06/24/2025 11:45 AM EST Office Visit [facility] 230 [place] [address] Chapo Bender MD 230 [place] [address] 07/25/2025 11:00 AM EST Office Visit [facility] OPTOMETRY 267 [place] [address] Britt Zurita, OD 267 [place] [address] documented as of this encounter Visit Diagnoses Not on filedocumented in this encounter Additional Health Concerns Assessment Noted Time PHQ-9 Depression Total Score: 3 08/08/20 24 11:59 AM EDT documented as of this encounter Care Teams Mat Tester Relationship Specialty Start Date End Date Ligia Becerra MD 230 [place] [address] PCP - General Family Medicine 07/22/22 Jair Pro MD [address] [place] [address] Urology 07/24/24 Tim Herrera [address] [place] [address] Neurosurgery 07/24/24 Trung Slade MD [address] 3rd [place] [address] Gastroenterology 10/19/24 Chucho Sexton [facility] Case Management 06/03/25 documented as of this encounter
--- OUTSIDE RECORDS SUMMARY | 2025-06-03 17:16 | XMS_ITS | Encounter Summary ---
Author Organization [employer] Address [address] [facility] [address] 7t [place] [address] Care Team Providers Care Yarn Cleaner Name Role Phone Ligia Becerra MD Primary Care Provider [phone]- [phone] Jair Pro MD Unavailable Tim Herrera Unavailable Trung Slade MD Unavailable [phone] Encounter Details Date Type Department Care Team (Late st Contact Info) Description 06/03/2025 Telephone [facility] 230 [place], [place] [phone] Ligia Becerra MD 230 [place], [place] [phone] Social History Tobacco Use Types Packs/Day Years [...] encounter Miscellaneous Notes * Telephone Encounter - Karina Ojeda - 06/03/2025 10:54 AM EDT Called Patient (all numbers on file), all numbers were disconnected. Called Patient to register fortelevisit. documented in this encounter Plan of Treatment Upcoming Encounters Date Type Department Care Team (Late st Contact Info) Description 06/13/2025 10:45 AM EST Office Visit [facility] [address] [place] [address] Ligia Becerra MD [address] [place] [address] 06/24/2025 11:45 AM EST Office Visit [facility] [address] [place] [address] Chapo Bender MD 230 [place] [address] 07/25/2025 11:00 AM EST Office Visit [facility] OPTOMETRY 267 [place] [address] TarkaBritt, OD 267 [place] [address] documented as of this encounter Visit Diagnoses Not on filedocumented in this encounter Additional Health Concerns Assessment Noted Time PHQ-9 Depression Total Score: 11 025 3:12 PM EDT documented as of this encounter Care Teams Yarn Cleaner Relationship Specialty Start Date End Date Ligia Becerra MD 230 [place] [address] PCP - General Family Medicine 07/22/22 Jair Pro MD [address] [place] [address] Urology 07/24/24 Tim Herrera [address] [place] [address] Neurosurgery 07/24/24 Trung Slade MD [address] 3rd [place] [address] Gastroenterology 10/19/24 Chucho Sexton [facility] Case Management 06/03/25 documented as of this encounter
--- OUTSIDE RECORDS SUMMARY | 2025-06-03 17:16 | XMS_ITS | Encounter Summary ---
Author Organization [employer] Address 75 [facility] 7t [place] [address] Care Team Providers Care Application Performance Engineer Name Role Phone Ligia Becerra MD Primary Care Provider [phone]- [phone] Jair Pro MD Unavailable Tim Herrera Unavailable Trung Slade MD Unavailable [phone] Reason for Visit * Reason Onset Date Comments Med Refill 07/18/2023 Encounter Details Date Type Department Care Team (Late st Contact Info) Description 07/18/2023 Telephone [facility] MEDICINE 230 [place], [place] [phone] Ligia Becerra MD 230 [place], [place] [phone] Med Refill Social History Tobacco Use Types [...] Strength) 500 MG tablet Please sent to [facility] Pharmacy documented in this encounter Plan of Treatment Upcoming Encounters Date Type Department Care Team (Late st Contact Info) Description 06/13/2025 10:45 AM EST Office Visit [facility] MEDICINE [address] [place] [address] Ligia Becerra MD [address] [place] [address] 06/24/2025 11:45 AM EST Office Visit [facility] MEDICINE [address] [place] [address] Chapo Bender MD 230 [place] [address] 07/25/2025 11:00 AM EST Office Visit [facility] OPTOMETRY [address] [place] [address] Britt Zurita, OD 267 [place] [address] documented as of this encounter Visit Diagnoses Not on filedocumented in this encounter Additional Health Concerns Assessment Noted Time PHQ-9 Depression Total Score: 18 023 3:56 PM EDT documented as of this encounter Care Teams Application Performance Engineer Relationship Specialty Start Date End Date Ligia Becerra MD 230 [place] [address] PCP - General Family Medicine 07/22/22 Jair Pro MD [address] [place] [address] Urology 07/24/24 Tim Herrera [address] [place] [address] Neurosurgery 07/24/24 Trung Slade MD [address] 3rd [place] [address] Gastroenterology 10/19/24 Chucho Sexton [facility] Case Management 06/03/25 documented as of this encounter
--- OUTSIDE RECORDS SUMMARY | 2025-06-03 17:16 | XMS_ITS | Encounter Summary ---
Author Organization [employer] Address [address] [facility] 7t [place] [address] Care Team Providers Care Agile Scrum Master Name Role Phone Ligia Becerra MD Primary Care Provider [phone]- [phone] Jair Pro MD Unavailable [phone] Tim Herrera Unavailable Trung Slade MD Unavailable [phone] Encounter Details Date Type Department Care Team (Late st Contact Info) Description 03/18/2023 Telephone [facility] MEDICINE 230 [place], [place] [phone] Ligia Becerra MD 230 [place], [place] [phone] Social History Tobacco Use Types Packs/Day Years [...] AM EDT documented as of this encounter Functional Status * Over the past 2 weeks, how often have you been bothered by any of the following problems? Question Answer Date of Assessment Author Patient Health Questionnaire-2 Score 6 08/1 3:56 PM Frde Echavarria * If you checked off any problems on this questionnaire so far, Question Answer Date of Assessment Author How difficult have these problems made it for you to do your work, take care of things at home, or get along with other people? Somewhat difficult 03/20/2023 3:56 PM Fred Echavarria * Over the past 2 weeks, how often have you been bothered by any of the following problems? Question Answer Date of Assessment Author Little interest or pleasure in doing things Nearly every day 03/20/2023 3:56 PM Fred Echavarria Feeling down, depressed, or hopeless Nearly every day 03/20/2023 3:56 PM Fred Echavarria Trouble falling or staying asleep, or sleeping too much Nearly every day 03/20/2023 3:56 PM Fred Echavarria Feeling tired or having little energy Nearly every day 03/20/2023 3:56 PM Fred Echavarria Poor appetite or overeating More than half the days 03/20/2023 3:56 PM Fred Echavarria Feeling bad about yourself - or that you are a failure or have let yourself or your family down Several days 03/20/2023 3:56 PM Fred Echavarria Trouble concentrating on things, such as reading the newspaper or watching television Not at all 03/20/2023 3:56 PM Fred Echavarria Moving or speaking so slowly that other people could have noticed? Or the opposite - being so fidgety or restless that you have been moving around a lot more than usual. Nearly every day 03/20/2023 3:56 PM Fred Echavarria Thoughts that you would be better off or hurting yourself in some way Not at all 03/20/2023 3:56 PM Jerry Echavarria Patient Health Questionnaire-9 Score 18 03/20/2023 3:56 PM Severo Echavarria documented as of this encounter Miscellaneous Notes * Telephone Encounter - Carole Tinajero - 03/18/2023 4:42 PM EDT Tc from pt states he spoke with a chef manager and was given the number [phone]. Welfare Worker did not seeany documentation. Please contact pt at [phone] documented in this encounter Plan of Treatment Upcoming Encounters Date Type Department Care Team (Late st Contact Info) Description 06/13/2025 10:45 AM EST Office Visit [facility] MEDICINE [address] [place] [address] Ligia Becerra MD [address] [place] [address] 06/24/2025 11:45 AM EST Office Visit [facility] MEDICINE [address] [place] [address] Chapo Bender MD [address] [place] [address] 07/25/2025 11:00 AM EST Office Visit [facility] OPTOMETRY 267 [place] [address] Britt Zurita OD 267 [place] [address] documented as of this encounter Visit Diagnoses Not on filedocumented in this encounter Care Teams Agile Scrum Master Relationship Specialty Start Date End Date Ligia Becerra MD [address] [place] [address] PCP - General Family Medicine 07/22/22 Jair Pro MD [address] [place] [address] Urology 07/24/24 Tim Herrera [address] [place] [address] Neurosurgery 07/24/24 Trung Slade MD [address] 3rd [place] [address] Gastroenterology 10/19/24 [facility] 06/[facility]/25 documented as of this encounter
--- OUTSIDE RECORDS SUMMARY | 2025-06-03 17:16 | XMS_ITS | Encounter Summary ---
Author Organization [employer] Address 75 [facility] 7t [place] [address] Care Team Providers Care Poultry Scalder Name Role Phone Ligia Becerra MD Primary Care Provider [phone]- [phone] Jair Pro MD Unavailable [phone] Tim Herrera Unavailable [phone] Trung Slade MD Unavailable [phone] Reason for Visit * Reason Onset Date Comments Call back request 08/14/2023 Encounter Details Date Type Department Care Team (Late st Contact Info) Description 08/14/2023 Telephone [facility] MEDICINE 230 [place] [address] Ligia Becerra MD 230 [place], [place] [phone] Call back request Social History Tobacco Use [...] 3:00 PM EST Tc from pt via [facility] interpretor #[id number] requesting call back wanting to speak with provider. Pt didn't want to information regarding the call, she stated pcp knows what's going on. Please contact pt at [phone]. documented in this encounter Plan of Treatment Upcoming Encounters Date Type Department Care Team ([facility] st Contact Info) Description 06/13/2025 10:45 AM EST Office Visit [facility] MEDICINE [address] [place] [address] Ligia Becerra MD [address] [place] [address] 06/24/2025 11:45 AM EST Office Visit [facility] MEDICINE 230 [place] [address] Chapo Bender MD 230 [place] [address] 07/25/2025 11:00 AM EST Office Visit [facility] OPTOMETRY [address] [place] [address] Britt Zurita, OD [address] [place] [address] documented as of this encounter Visit Diagnoses Not on filedocumented in this encounter Additional Health Concerns Assessment Noted Time PHQ-9 Depression Total Score: 18 023 3:56 PM EDT documented as of this encounter Care Teams Poultry Scalder Relationship Specialty Start Date End Date Ligia Becerra MD 230 [place] [address] PCP - General Family Medicine 07/22/22 Jair Pro MD [address] [place] [address] Urology 07/24/24 Tim Herrera [address] [place] [address] Neurosurgery 07/24/24 Trung Slade MD [address] 3rd [place] [address] Gastroenterology 10/19/24 Chucho Sexton [facility] Case Management 06/03/25 documented as of this encounter
--- OUTSIDE RECORDS SUMMARY | 2025-06-03 17:16 | XMS_ITS | Encounter Summary ---
Author Organization [employer] Address 75 [facility] 7t [place] [address] Care Team Providers Care Dude Ranch Manager Name Role Phone Ligia Becerra MD Primary Care Provider [phone]- [phone] Jair Pro MD Unavailable Tim Herrera Unavailable Trung Slade MD Unavailable [phone] Reason for Visit * Reason Onset Date Comments Nurse Triage 04/04/2025 Encounter Details Date Type Department Care Team (Late st Contact Info) Description 04/04/2025 Telephone [facility] MEDICINE 230 [place], [place] [phone] Ligia Becerra MD 230 [place], [place] [phone] Nurse Triage Social History Tobacco Use Types [...] of Assessment Author Patient Health Questionnaire-2 Score 2 03/12 3:12 PM EDT Concepción Perera [place] * Little interest or pleasure in doing things Answer Date of Assessment Author Several days 04/06/2025 3:12 PM EDT Yamilka Perera MA * Feeling down, depressed, or hopeless Answer Date of Assessment Author Several days 04/06/2025 3:12 PM EDT Yamilka Perera MA * Trouble falling or staying asleep, or sleeping too much Answer Date of Assessment Author More than half the days 04/06/2025 3:12 PM EDT Concepción [place] * Feeling tired or having little energy Answer Date of Assessment Author More than half the days 04/06/2025 3:12 PM EDT Concepción [place] * Poor appetite or overeating Answer Date of Assessment Author Not at all 04/06/2025 3:12 PM EDT Yamilka Perera MA * Feeling bad about yourself - or that you are a failure or have let yourself or your family down Answer Date of Assessment Author More than half the days 04/06/2025 3:12 PM EDT Concepción [place] MA * Trouble concentrating on things, such as reading the newspaper or watching television Answer Date of Assessment Author More than half the days 04/06/2025 3:12 PM EDT Concepción [place] MA * Moving or speaking so slowly that other people could have noticed? Or the opposite - being so fidgety or restless that you have been moving around a lot more than usual. Answer Date of Assessment Author Several days 04/06/2025 3:12 PM EDT Yamilka Perera MA * Thoughts that you would be better off or hurting yourself in some way Answer Date of Assessment Author Not at all 04/06/2025 3:12 PM EDT Yamilka Perera MA * Patient Health Questionnaire-9 Score Answer Date of Assessment Author 11 04/06/2025 3:12 PM EDT Yamilka Perera MA * How difficult have these problems made it for you to do your work, take care of things at home, or get along with other people? Answer Date of Assessment Author Very difficult 04/06/2025 3:12 PM EDT Yamilka Perera MA documented as of this encounter Miscellaneous Notes * Telephone Encounter - Tamar Carolina RN - 04/04/2025 1:09 PM EDT Triage call to Pt with ASL ID # [id number] Pt didn't answer. Left message for Pt to call [facility] triage line at [phone] * Telephone Encounter - Darling Mendes - 04/04/2025 12:48 PM EDT Symptom: Earache Outcome: Schedule an urgent appointment (within 1 hour) or talk to a nurse or provider soon Reason: Severe pain now Contact pt at [phone] (sign language) documented in this encounter Plan of Treatment Upcoming Encounters Date Type Department Care Team (Late st Contact Info) Description 06/13/2025 10:45 AM EST Office Visit [facility] MEDICINE [address] [place] [address] Ligia Becerra MD [address] [place] [address] 06/24/2025 11:45 AM EST Office Visit [facility] MEDICINE [address] [place] [address] Chapo Bender MD 230 [place] [address] 07/25/2025 11:00 AM EST Office Visit [facility] OPTOMETRY [address] [place] [address] Britt Zurita, OD 267 [place] [address] documented as of this encounter Visit Diagnoses Not on filedocumented in this encounter Additional Health Concerns Assessment Noted Time PHQ-9 Depression Total Score: 3 03/18/20 24 11:59 AM EDT documented as of this encounter Care Teams Dude Ranch Manager Relationship Specialty Start Date End Date Ligia Becerra MD [address] [place] [address] PCP - General Family Medicine 07/22/22 Jair Pro MD [address] [place] [address] Urology 07/24/24 Tim Herrera [address] [place] [address] Neurosurgery 07/24/24 Trung Slade MD [address] 3rd [place] [address] Gastroenterology 10/19/24 [facility]25 documented as of this encounter
--- OUTSIDE RECORDS SUMMARY | 2025-06-03 17:16 | XMS_ITS | Encounter Summary ---
Author Organization [employer] Address [address] [facility] 7t [place] [address] Care Team Providers Care Meat Grader Name Role Phone Ligia Becerra MD Primary Care Provider [phone]- [phone] Jair Pro MD Unavailable Tim Herrera Unavailable [phone] Trung Slade MD Unavailable [phone] Encounter Details Date Type Department Care Team (Late st Contact Info) Description 02/04/2023 Abstract [facility] MEDICINE [address] [place], [place] [phone] Ligia Becerra MD [address] [place], [place] [phone] Social History Tobacco Use Types Packs/Day Years [...] 06/13/2025 10:45 AM EST Office Visit [facility] MEDICINE [address] [place] [address] Ligia Becerra MD [address] [place] [address] 06/24/2025 11:45 AM EST Office Visit [facility] MEDICINE [address] [place] [address] Chapo Bender MD [address] [place] [address] 07/25/2025 11:00 AM EST Office Visit [facility] OPTOMETRY [address] [place] [address] Britt Zurita, OD [address] [place] [address] documented as of this encounter Visit Diagnoses Not on filedocumented in this encounter Care Teams Meat Grader Relationship Specialty Start Date End Date Ligia Becerra MD [address] [place] [address] PCP - General Family Medicine 07/22/22 Jair Pro MD [address] [place] [address] Urology 07/24/24 Tim Herrera [address] [place] [address] Neurosurgery 07/24/24 Trung Slade MD [address] 3rd [place] [address] Gastroenterology 10/19/24 Chucho Sexton [facility] Case Management 06/03/25 documented as of this encounter
== END 2025-06-03 16:15 | disposition home or self-care (01) ==
LOC: HO.HHCLNP 16:14
PROVIDERS: Visit Provider Family Medicine
DX: R82.90 Unspecified abnormal findings in urine (principal)
CPT/HCPCS: 81001

== ENCOUNTER 2025-07-27 14:02 | Outpatient (REF) | payer OTHER, SELFPAY ==
[2025-07-27 16:16] LABS: MANUAL DIFF FLAG NO
[2025-07-27 16:24] LABS: Hematocrit 43.0 % (42.0-52.0); Hemoglobin 14.4 g/dl (14.0-18.0); Imm Gran Abs Auto 0.04 X10*3/uL (0.00-0.03); Imm Gran Pct Auto 0.5 % (0.0-0.4); Lymphocytes Absolute Auto 1.6 X10*3/uL (1.2-4.9); Mean Corpuscular HGB Conc 33.5 g/dl (31.0-36.0); Mean Corpuscular Hemoglobin 29.9 pg (27.0-33.0); Mean Corpuscular Volume 89.4 fL (80.0-98.0); NRBC Abs Auto 0.000 X10*3/uL (0.0-0.012); NRBC Pct Auto 0.0 /100WBC (0.0-0.2); Platelet Count 203 X10*3/uL (160-400); Red Blood Count 4.81 X10*6/uL (4.60-5.80); White Blood Count 7.6 X10*3/uL (4.8-10.8)
[2025-07-27 17:04] LABS: Microalbum/Creatinine Ratio Ur 23.0 ug/mg cr (<30)
[2025-07-27 17:05] LABS: Alanine Aminotransferase 21 U/L (0-40); Albumin Level 4.5 g/dL (3.5-5.0); Alkaline Phosphatase 68 U/L (39-117); Anion Gap 11 (12-20); Aspartate Amino Transferase 34 U/L (5-37); Blood Urea Nitrogen 22 mg/dL (9-16); Calcium 9.3 mg/dL (8.4-10.2); Carbon Dioxide 25 mmol/L (22-29); Chloride 109 mmol/L (96-108); Cholesterol 158 mg/dL (<200); Estimated Glomerular Filt Rate > 60; HDL Cholesterol 28 mg/dL (>40); Potassium 4.0 mmol/L (3.3-5.1); Sodium 141 mmol/L (135-145); Total Protein 7.1 g/dL (6.5-8.0); Triglycerides 121 mg/dL (<150)
--- OUTSIDE RECORDS SUMMARY | 2025-07-27 18:44 | XMS_ITS | Encounter Summary ---
Author Organization [employer] Address [address] [facility] [address] 7t [place] [address] Care Team Providers Care Consumer Affairs Specialist Name Role Phone Ligia Becerra MD Primary Care Provider Jair Pro MD Unavailable Tim Herrera Unavailable Trung Slade MD Unavailable [phone] Encounter Details Date Type Department Care Team (Late st Contact Info) Description 06/28/2025 Telephone [facility] MEDICINE 230 [place], [place] [phone] Ligia Becerra MD 230 [place], [place] [phone] Social History Tobacco Use Types Packs/Day Years [...] Care Team (Late st Contact Info) Description 08/31/2025 3:30 PM EST Office Visit [facility] OPTOMETRY [address] [place] [address] Britt Zurita, RICKY [address] [place] [address] documented as of this encounter Visit Diagnoses Not on filedocumented in this encounter Additional Health Concerns Assessment Noted Time PHQ-9 Depression Total Score: 11 025 3:12 PM EDT documented as of this encounter Care Teams Consumer Affairs Specialist Relationship Specialty Start Date End Date Ligia Becerra MD [address] [place] [address] PCP - General Family Medicine 07/22/22 Jair Pro MD [address] [place] [address] Urology 07/24/24 Tim Herrera [address] [place] [address] Neurosurgery 07/24/24 Trung Slade MD [address] 3rd [place] [address] Gastroenterology 10/19/24 Chucho Sexton [facility] Case Management 06/03/25 documented as of this encounter
--- OUTSIDE RECORDS SUMMARY | 2025-07-27 18:44 | XMS_ITS | Encounter Summary ---
Author Organization [employer] Address [address] [facility] [facility] [address] 7t [place] [address] Care Team Providers Care Cement Or Concrete Finishing Supervisor Name Role Phone Ligia Becerra MD Primary Care Provider [phone] Jair Pro MD Unavailable Tim Herrera Unavailable Trung Slade MD Unavailable [phone] Reason for Visit * Reason Onset Date Comments pt1 06/16/2025 Encounter Details Date Type Department Care Team (Late st Contact Info) Description 06/16/2025 Telephone [facility] MEDICINE 230 [place], [place] [phone] Ligia Becerra MD 230 [place], [place] [phone] pt1 Social History Tobacco Use Types Packs/Day Years [...] housing situation today? I have jodie sing 04/06/[address] you li [...] * Telephone Encounter - Darling Mendes - 06/16/2025 10:08 AM EST Patient calling requesting PT1 Home Address verified: Y/N: Yes Provider name or facility name: [facility] 230 [facility] [address] Escort needed: Y/N: No Do you have a wheelchair: If yes- Manual or electric: Visits: 3x documented in this encounter Plan of Treatment Upcoming Encounters Date Type Department Care Team (Late st Contact Info) Description 08/31/2025 3:30 PM EST Office Visit [facility] OPTOMETRY [address] [place] [address] Britt Zurita, OD [address] [place] [address] documented as of this encounter Visit Diagnoses Not on filedocumented in this encounter Additional Health Concerns Assessment Noted Time PHQ-9 Depression Total Score: 11 025 3:12 PM EDT documented as of this encounter Care Teams Cement Or Concrete Finishing Supervisor Relationship Specialty Start Date End Date Ligia Becerra MD 230 [place] [address] PCP - General Family Medicine 07/22/22 Jair Pro MD [address] [place] [address] Urology 07/24/24 Tim Herrera [address] [place] [address] Neurosurgery 07/24/24 Trung Slade MD [address] 3rd [place] [address] Gastroenterology 10/19/[facility] documented as of this encounter
--- OUTSIDE RECORDS SUMMARY | 2025-07-27 18:45 | XMS_ITS | Encounter Summary ---
Author Organization [employer] Address [address] [facility] [facility] [address] 7t [place] [address] Care Team Providers Care Manager Of Case Name Role Phone Ligia Becerra MD Primary Care Provider [phone] Jair Pro MD Unavailable Tim Herrera Unavailable [phone] Trung Slade MD Unavailable [phone] Reason for Visit * Reason Onset Date Comments Requesting A Phone Call 09/18/2022 Encounter Details Date Type Department Care Team (Late st Contact Info) Description 09/18/2022 Telephone [facility] MEDICINE 230 [place], [place] [phone] Ligia Becerra MD 230 [place], [place] [phone] Requesting A Phone Call Social History Tobacco [...] specific in why. Please contact pt at [phone] documented in this encounter Plan of Treatment Upcoming Encounters Date Type Department Care Team (Late st Contact Info) Description 08/31/2025 3:30 PM EST Office Visit [facility] OPTOMETRY [address] [place] [address] Britt Zurita, OD 267 [place] [address] documented as of this encounter Visit Diagnoses Not on filedocumented in this encounter Care Teams Manager Of Case Relationship Specialty Start Date End Date Ligia Becerra MD 230 [place] [address] PCP - General Family Medicine 07/22/22 Jair Pro MD [address] [place] [address] Urology 07/24/24 Tim Herrera [address] [place] [address] Neurosurgery 07/24/24 Trung Slade MD [address] 3rd [place] [address] Gastroenterology 10/19/24 Chucho Sexton [facility] Case Management 06/03/25 documented as of this encounter
--- OUTSIDE RECORDS SUMMARY | 2025-07-27 18:45 | XMS_ITS | Encounter Summary ---
Author Organization [employer] Address [address] [facility] [address] 7t [place] [address] Care Team Providers Care Orchestrator Name Role Phone Ligia Becerra MD Primary Care Provider [phone] Jair Pro MD Unavailable Tim Herrera Unavailable Trung Slade MD Unavailable [phone] Reason for Visit * Reason Onset Date Comments Durable Medical Equipment 06/02/2024 Encounter Details Date Type Department Care Team (Late st Contact Info) Description 06/02/2024 Telephone [facility] MEDICINE 230 [place], [place] [phone] Ligia Becerra MD 230 [place], [place] [phone] Durable Medical Equipment Social History Tobacco Use [...] any questions you can contact pt at [phone]. documented in this encounter Plan of Treatment Upcoming Encounters Date Type Department Care Team (Late st Contact Info) Description 08/31/2025 3:30 PM EST Office Visit [facility] OPTOMETRY [address] [place] [address] Britt Zurita, OD 267 [place] [address] documented as of this encounter Visit Diagnoses Not on filedocumented in this encounter Additional Health Concerns Assessment Noted Time PHQ-9 Depression Total Score: 3 03/18/20 24 11:59 AM EDT documented as of this encounter Care Teams Orchestrator Relationship Specialty Start Date End Date Ligia Becerra MD 230 [place] [address] PCP - General Family Medicine 07/22/22 Jair Pro MD [address] [place] [address] Urology 07/24/24 Tim Herrera [address] [place] [address] Neurosurgery 07/24/24 Trung Slade MD [address] 3rd [place] [address] Gastroenterology 10/19/24 Chucho Sexton [facility] Case Management 06/03/25 documented as of this encounter
--- OUTSIDE RECORDS SUMMARY | 2025-07-27 18:45 | XMS_ITS | Encounter Summary ---
Author Organization [employer] Address [address] [facility] [address] 7t [place] [address] Care Team Providers Care Telecommunications Field Engineer Name Role Phone Ligia Becerra MD Primary Care Provider [phone]- [phone] Jair Pro MD Unavailable [phone] Tim Herrera Unavailable [phone] Trung Slade MD Unavailable [phone] Encounter Details Date Type Department Care Team (Latest Contact Info) Description 07/26/2025 Travel Social History Tobacco Use Types Packs/Day [...] Description 08/31/2025 3:30 PM EST Office Visit [facility] OPTOMETRY [address] [place] [address] Britt Zurita, OD [address] [place] [address] documented as of this encounter Visit Diagnoses Not on filedocumented in this encounter Additional Health Concerns Assessment Noted Time PHQ-9 Depression Total Score: 11 025 3:12 PM EDT documented as of this encounter Care Teams Telecommunications Field Engineer Relationship Specialty Start Date End Date Ligia Becerra MD 230 [place] [address] PCP - General Family Medicine 07/22/22 Jair Pro MD [address] [place] [address] Urology 07/24/24 Tim Herrera [address] [place] [address] Neurosurgery 07/24/24 Trung Slade MD [address] 3rd [place] [address] Gastroenterology 10/19/24 Chucho Sexton [facility] Case Management 06/03/25 documented as of this encounter
--- OUTSIDE RECORDS SUMMARY | 2025-07-27 18:45 | XMS_ITS | Encounter Summary ---
Author Organization [employer] Address [address] [facility] 7t [place] [address] Care Team Providers Care Coin Machine Supervisor Name Role Phone Ligia Becerra MD Primary Care Provider [phone] Jair Pro MD Unavailable [phone] Tim Herrera Unavailable [phone] Trung Slade MD Unavailable [phone] Reason for Referral * Consultation (Routine) - Closed Specialty Diagnoses / Procedures Referred By Contac t Referred To Contact Physical Therapy Diagnoses Chronic bilateral thoracic back pain Bilateral deafness Ligia Becerra MD [address] [place] [address] Phone: tel: fax: [facility], Audiology [address] Phone: tel: fax: Referral ID Status Reason Start Date Expiration Date V isits Requested Visits Authorized [id number] Closed Specialty Services Required 06/22/2024 06/22/2025 1 1 Encounter Details Date Type Department Care Team (Late st Contact Info) Description 06/17/[address] [facility] [address] [place] [phone] Ligia Becerra MD [address] [place] [address] [phone] Chronic bilateral thoracic back pain (Primary Dx); [...] Description 08/31/2025 3:30 PM EST Office Visit [facility] OPTOMETRY [address] [place] [address] Britt Zurita, OD [address] [place] [address] Scheduled Referrals Name Type Priority Associated Diagnoses [...] documented as of this encounter Care Teams Coin Machine Supervisor Relationship Specialty Start Date End Date Ligia Becerra MD [address] [place] [address] PCP - General Family Medicine 07/22/22 Jair Pro MD [address] [place] [address] Urology 07/24/24 Tim Herrera [address] [place] [address] Neurosurgery 07/24/24 Trung Slade MD [address] 3rd [place] [address] Gastroenterology 10/19/24 Chucho Sexton [facility] Case Management 06/03/25 documented as of this encounter
--- OUTSIDE RECORDS SUMMARY | 2025-07-27 18:45 | XMS_ITS | Encounter Summary ---
Author Organization [employer] Address [address] [facility] [facility] [address] [place] [address] Care Team Providers Care Owner Spa Director Name Role Phone Ligia Becerra MD Primary Care Provider [phone] Jair Pro MD Unavailable [phone] Tim Herrera Unavailable Trung Slade MD Unavailable [phone] Reason for Visit * Reason Onset Date Comments Created in error 04/09/2024 Encounter Details Date Type Department Care Team (Late st Contact Info) Description 04/09/2024 Telephone [facility] MEDICINE 230 [place], [place] [phone] Ligia Becerra MD 230 [place], [place] [phone] Created in error Social History Tobacco Use [...] Description 08/31/2025 3:30 PM EST Office Visit [facility] OPTOMETRY [address] [place], [place] [phone] Britt Zurita, OD 267 [place] [address] documented as of this encounter Visit Diagnoses Not on filedocumented in this encounter Additional Health Concerns Assessment Noted Time PHQ-9 Depression Total Score: 3 03/18/20 24 11:59 AM EDT documented as of this encounter Care Teams Owner Spa Director Relationship Specialty Start Date End Date Ligia Becerra MD [address] [place] [address] PCP - General Family Medicine 07/22/22 Jair Pro MD [address] [place] [address] Urology 07/24/24 Tim Herrera [address] [place] [address] Neurosurgery 07/24/24 Trung Slade MD [address] 3rd [place] [address] Gastroenterology 10/19/24 Chucho Sexton [facility] Case Management 06/03/25 documented as of this encounter
--- OUTSIDE RECORDS SUMMARY | 2025-07-27 18:45 | XMS_ITS | Clinical Summary ---
Author Organization [employer] Address [address] [place] [address] Care Team Providers Care Director Of Parks And Recreation Name Role Phone Ligia Becerra MD Primary Care Provider [phone] Jair Pro MD Unavailable [phone] Tim Nolen Unavailable [phone] Trung Slade MD Unavailable [phone] Allergies No known active allergies Medications [...] 11/23/19 25 Active lidocaine (Lidoderm) 5 % patchIndication s:Chronic bilateral thoracic back pain Apply 1 patch topically Once per day. Remove & discard patch within 12 hours or as directed by . 15 patch 2 03/10/20 25 Active albuterol 108 (90 Base) MCG/ACT inhalerIndicati ons:Chest congestion,Whee zing Inhale 2 puffs every 6 (six) hours if needed for wheezing. 18 g 06/06/20 Active amoxicillin-cla vulanate (Augmentin) 500-125 MG tabletIndicatio ns:Acute non-recurrent maxillary sinusitis Take 1 tablet (500 mg) by mouth 2 times daily. 20 tablet 5 2:46 PM EST 06/30/20 Active clotrimazole (Lotrimin) 1 % creamIndication s:Candidiasis APPLY TO THE AFFECTED AREA(S) TWICE DAILY 15 g 1 07/05/20 Active clotrimazole (Lotrimin) 1 % creamIndication s:Candidiasis Apply topically 2 times daily. 14 g 1 5 12:47 PM EST 06/30/20 25 025 Discontinued azithromycin (Zithromax) 250 MG tablet Take 2 tablets (500 mg) by mouth Once per day for 1 day, THEN 1 tablet (250 mg) Once per day for 4 days. 6 tablet 07/15/20 25 025 Discontinued(Re order (will not trigger notification to Pharmacy)) azithromycin (Zithromax) 250 MG tablet Take 2 tablets (500 mg) by mouth Once per day for 1 day, THEN 1 tablet (250 mg) Once per day for 4 days. 6 tablet 5 12:11 PM EST 07/15/20 25 025 Active Problems Patient Care Coordination No te Formatting of this note migh t be different from the original. Formerly [facility], 1928–1983 Care [place] Fire Chief: Yajaira, member services number [phone], provider services line, , option [address] Agency: [facility], [facility] Problem Noted Date Diagnosed Date Chronic [...] Patient will benefit from follow through with [facility] services and recommendations as well as continued calls to the [facility]. At this time Jacob Angeles meets criteria [...] Patient goal is to follow through with [facility] services and recommendations 3. Behavioral Recommendations a. OP therapy with N b. Calling the [facility] daily Assessment & Plan (04/15/2023 1:06 PM [...] Patient will benefit from crisis evaluation with [facility] CB and intermediate placment. At this time Jacob Angeles meets [...] OP therapy, psychiatry 3. Behavioral Recommendations a. [facility] b. Call [facility] daily at 9:00 AM for intake Assessment [...] OP therapy, psychiatry 3. Behavioral Recommendations a. [facility] b. Call [facility] at 9:00 AM at 04/08/23 for intake [...] due after 04/06/26 -eye care facilitated by [facility] -dental home is [facility] proxy paperwork given 08/22/23, filed 03/18/24 Assessment & Plan (04/07/2025 11:03 AM EDT): -next comprehensive annual evaluation due after 03/18/26 -eye care facilitated by [facility] -dental home is [facility] proxy paperwork given 08/22/23, filed 03/18/24 Assessment & Plan (03/18/2024 11:39 AM EDT): -next PE due after 03/18/25 -eye care facilitated by [facility] -dental home is [facility] proxy paperwork given 08/22/23, filed 03/18/24 [...] GI 09/17/21. I reached out to her loss prevention supervisor Ana Maria to assist her in following up. Class 2 severe obesity due t o excess calories with serious comorbidity in adult, unspecified BMI 07/29/2022 Assessment & Plan (07/15/2025 10:36 AM EST): Orders: Hemoglobin A1c; Future Assessment & Plan (04/07/2025 11:03 AM EDT): [...] in the future. Gender dysphoria 07/25/2022 Overview (07/15/2025): -On 09/12/2022 we reviewed risks and benefits [...] a week started 05/23/2023 and self discontinued. -not on hormone therapy and has not demonstrated ability to comply with required follow up including labs etc. -she does not have realistic expectations about what her hormones can do in terms of breast development and hair growth. Shared decision making done regarding her inquiring about breast implants. Referred to [facility] multiple times, last 04/06/25. She understands she needs to see therapist and get letter from them for insurance to cover. After letter is obtained we can refer to plastic surgery. -Patient contuses to request breast surgery. Reviewed that referral and considerations require engagement in recommended presurgical steps, including mental health evaluation and demonstration of understanding of risk/benefits and post operative course. To date, she has not followed through with recommended evaluations and has not demonstrated adequate understanding of surgery related risks, expected healing time or post operative requirements despite multiple discussions over years. Reiterated recommendations. Assessment & Plan (07/15/2025 10:36 AM EST): -On 09/12/2022 we reviewed risks [...] a week started 05/23/2023 and self discontinued. -not on hormone therapy and has not demonstrated ability to comply with required follow up including labs etc. -she does not have realistic expectations about what her hormones can do in terms of breast development and hair growth. Shared decision making done regarding her inquiring about breast implants. Referred to [facility] multiple times, last 04/06/25. She understands she needs to see therapist and get letter from them for insurance to cover. After letter is obtained we can refer to plastic surgery. -Patient contuses to request breast surgery. Reviewed that referral and considerations require engagement in recommended presurgical steps, including mental health evaluation and demonstration of understanding of risk/benefits and post operative course. To date, she has not followed through with recommended evaluations and has not demonstrated adequate understanding of surgery related risks, expected healing time or post operative requirements despite multiple discussions over years. Reiterated recommendations. Assessment & Plan (06/06/2025 9:34 AM EDT): -On 09/12/2022 we reviewed risks [...] her inquiring about breast implants. Referred to [facility] multiple times, last 04/06/25. She understands [...] 3:40 PM EST): I will be calling manager case to discuss Pts option. Pt is interested in breast augmentation. She knows she needs a thereapist. Discussed options with Ajit oRdrigez. Assessment & Plan (09/12/2022 2:28 PM EST): [...] when offering services. -Team meeting pt and underwriting service representative from safety, behavior health, case managment, viability and myself on 05/23/2023 done to reinforce which services to use when seeking assistance and setting up behavior expatiation when in the clinic. -[facility] ([facility]) MAC OPERATOR [phone] Assessment & Plan (04/07/2025 11:03 AM EDT): psychological assessment with Wendy Rosas PhD. Clinical Psychologist, [...] when offering services. -Team meeting pt and underwriting service representative from safety, behavior health, case managment, viability and myself on 05/23/2023 done to reinforce which services to use when seeking assistance and setting up behavior expatiation when in the clinic. -[facility] ([facility]) MAC OPERATOR [phone] Assessment & Plan (11/19/2023 4:15 PM EDT): psychological assessment with Wendy Rosas PhD. Clinical Psychologist, [...] when offering services. -Team meeting pt and underwriting service representative from safety, behavior health, case managment, viability and myself on 05/23/2023 done to reinforce which services to use when seeking assistance and setting up behavior expatiation when in the clinic. -[facility] ([facility]) MAC OPERATOR [phone] Assessment & Plan (08/22/2023 9:06 AM EST): [...] when offering services. -Team meeting pt and underwriting service representative from safety, behavior health, case managment, viability and myself on 05/23/2023 done to reinforce which services to use when seeking assistance and setting up behavior expatiation when in the clinic. -[facility] ([facility]) MAC OPERATOR [phone] Assessment & Plan (08/13/2023 9:50 AM EST): [...] when offering services. -Team meeting pt and underwriting service representative from safety, behavior health, case managment, viability and myself on 05/23/2023 done to reinforce which services to use when seeking assistance and setting up behavior expatiation when in the clinic. -[facility] ([facility]) MAC OPERATOR [phone] Assessment & Plan (05/23/2023 1:14 PM EDT): [...] when offering services. -Team meeting pt and underwriting service representative from safety, behavior health, case managment, viability and myself on 05/23/2023 done to reinforce which services to use when seeking assistance and setting up behavior expatiation when in the clinic. -[facility] ([facility]) MAC OPERATOR [phone] Assessment & Plan (02/05/2023 11:15 AM EDT): [...] offering services. -[facility] with Jose Ramos Jr. MAC OPERATOR , text . Assessment & Plan (10/28/2022 [...] multiple times, last 04/06/25 Assessment & Plan (07/15/2025 10:36 AM EST): -psychological assessment with Wendy Rosas, [...] interviewing when offering services. Assessment & Plan (06/06/2025 9:34 AM EDT): -psychological assessment with Wendy Rosas, [...] prescribed by [facility] but pt did not package pick up. -She returned to pain management 06/02/2023 and was referred to neurosurgery -seen by Dr. Tim Nolen MD, PhD , Spine Fellowship Trained Neurosurgeon, Director, [facility] 06/25/2023 -Pt offered a multilevel decompression [...] explained to him with the help of project design engineer [id number] that I do not believe there is [...] prescribed by [facility] but pt did not package pick up. -She returned to pain management 06/02/2023 and was referred to neurosurgery -seen by Dr. Tim Nolen MD, PhD , Spine Fellowship Trained Neurosurgeon, Director, [facility] 06/25/2023 -Pt offered a multilevel decompression [...] prescribed by [facility] but pt did not package pick up. -She returned to pain management 06/02/2023 and was referred to neurosurgery -seen by Dr. Tim Nolen MD, PhD , Spine Fellowship Trained Neurosurgeon, Director, [facility] 06/25/2023 -Pt offered a multilevel decompression [...] prescribed by [facility] but pt did not package pick up. -She returned to pain management 06/02/2023 and was referred to neurosurgery -seen by Dr. Tim Nolen MD, PhD , Spine Fellowship Trained Neurosurgeon, Director, [facility] -Ptoffered a multilevel decompression of the [...] prescribed by [facility] but pt did not package pick up. -She returned to pain management 06/02/2023 and was referred to neurosurgery -seen by Dr. Tim Nolen MD, PhD , Spine Fellowship Trained Neurosurgeon, Director, [facility] -Ptoffered a multilevel decompression of the [...] prescribed by [facility] but pt did not package pick up. -She returned to pain management 06/02/2023 and was referred to neurosurgery -seen by Dr. Tim Nolen MD, PhD , Spine Fellowship Trained Neurosurgeon, Director, [facility] -Ptoffered a multilevel decompression of the [...] prescribed by [facility] but pt did not package pick up. -She returned to pain management 06/02/2023 and was referred to neurosurgery -seen by Dr. Tim Nolen MD, PhD , Spine Fellowship Trained Neurosurgeon, Director, [facility] -Ptoffered a multilevel decompression of the [...] prescribed by [facility] but pt did not package pick up. -She returned to pain management 06/02/2023 and was referred to neurosurgery -seen by Dr. Tim Nolen MD, PhD , Spine Fellowship Trained Neurosurgeon, Director, [facility] -Ptoffered a multilevel decompression of the [...] prescribed by [facility] but pt did not package pick up. -She returned to pain management 06/02/2023 and was referred to neurosurgery -seen by Dr. Tim Nolen MD, PhD , Spine Fellowship Trained Neurosurgeon, Director, [facility] -Ptoffered a multilevel decompression of the [...] proscribed cyclobenzaprine. I reached out to her loss prevention supervisor Ana Maria to assist her in following [...] following with blood work. Assessment & Plan (07/15/2025 10:36 AM EST): -MRI 10/14/16 reveals heterogenous bone marrow signal. -SPEP 2016 significant for M spike. Immunofixation significant for isolated IgG kappa. Findings of monoclonial antibody can be normal in 10% of population >60. No evidence of acute myeloma. Pt may have MGUS which would require following with blood work. Orders: CBC auto differential; Future Assessment & Plan (11/19/2023 4:13 PM EDT): [...] prn. Avitaminosis D 11/27/2021 Assessment & Plan (07/15/2025 10:36 AM EST): Assessment & Plan (04/07/2025 11:03 AM EDT): [...] modifications -Continue current medications Assessment & Plan (07/15/2025 10:36 AM EST): -Blood pressure is at goal -Continue lifestyle modifications -Continue current medications Orders: Albumin, Random Urine W/Creatinine; Future Basic Metabolic Panel; Future Assessment & Plan (04/07/2025 11:03 AM EDT): [...] 12/30/2014 Overview (06/03/2025): Audiology appointment 03/02/2023 -[facility] underwriting service representative Elizabeth ([facility]) Assessment & Plan (06/06/2025 9:34 AM EDT): Audiology appointment was 03/02/2023. -[facility] underwriting service representative ([facility]) Assessment & Plan (05/19/2024 3:18 PM EDT): Audiology appointment 03/02/2023. -[facility] underwriting service representative Nany ([facility]) [phone] Assessment & Plan (03/18/2024 11:35 AM EDT): Audiology appointment 03/02/2023. -[facility] underwriting service representative N[facility] ([facility]) MAC OPERATOR [phone] Assessment & Plan (11/19/2023 4:14 PM EDT): Audiology appointment 03/02/2023. -[facility] underwriting service representative N[facility] ([facility]) MAC OPERATOR [phone] Assessment & Plan (08/22/2023 9:06 AM EST): Audiology appointment 03/02/2023. -[facility] underwriting service representative N[facility] ([facility]) MAC OPERATOR [phone] Assessment & Plan (08/13/2023 9:48 AM EST): Audiology appointment 03/02/2023. -[facility] underwriting service representative N[facility] ([facility]) MAC OPERATOR [phone] Assessment & Plan (05/23/2023 1:16 PM EDT): Audiology appointment 03/02/2023. -[facility] underwriting service representative [facility] ([facility]) MAC OPERATOR [phone] Assessment & Plan (02/05/2023 11:14 AM EDT): Audiology appointment 03/02/2023. [facility] with Jose Ramos Jr. MAC OPERATOR , text . Assessment & Plan (12/12/2022 [...] for appointment. I have asked her [facility] loss prevention supervisor to assist her. -CT 12/2021 Gallbladder surgically [...] for appointment. I have asked her [facility] loss prevention supervisor to assist her. -CT 12/2021 Gallbladder surgically [...] for appointment. I have asked her [facility] loss prevention supervisor to assist her. -CT 12/2021 Gallbladder surgically [...] for appointment. I have asked her [facility] loss prevention supervisor to assist her. -CT 12/2021 Gallbladder surgically [...] for appointment. I have asked her [facility] loss prevention supervisor to assist her. -CT 12/2021 Gallbladder surgically [...] for appointment. I have asked her [facility] loss prevention supervisor to assist her. -CT 12/2021 Gallbladder surgically [...] for appointment. I have asked her [facility] loss prevention supervisor to assist her. -CT 12/2021 Gallbladder surgically [...] for appointment. I have asked her [facility] loss prevention supervisor to assist her. -CT 12/2021 COMPARISON: Multiple [...] and financial insecurity. Patient will benefit from [facility] referral and OP therapy. At this time [...] 10/28/2022 Acute respiratory failure wi th hypoxia ([facility]) 04/16/2019 07/29/2022 Anxiety and depression 04/16/201904/07 Dyspnea 04/16/2019 07/29/2022 Sepsis ([facility]) 04/16/2019 07/29/2022 Urinary tract obstruction 03/21/2017 Gastroesophageal reflux dise ase without esophagitis 12/30/2014 07/29/2022 Gall stone 09/13/2014 07/25/2022 Overview (07/25/2022): Had Laparoscopic Cholycystectomy done 10/04/[address] Jj Brandon Gender identity disorder 06/03/201209/2022 Hearing loss 06/03/2012 07/29/2022 Encounters Date Type Department Care Team Description 07/26/2025 Travel 07/18/2025 Telephone [facility] [address] [place] [id number] Ligia Becerra MD Referral 07/18/2025 Refill [facility] [address] [place] [id number] Yajiara Dior 07/15/2025 10:00 AM EST Office Visit [address] [address] Ligia Becerra MD Acute URI (Primary Dx); Primary hypertension; Psychiatric disorder; Avitaminosis D; Gammopathy with multiple M spikes; Dyslipidemia; Class 2 severe obesity due to excess calories with serious comorbidity in adult, unspecified BMI; Gender dysphoria 07/15/2025 Refill [facility] [address] [place] [id number] Ligia Becerra MD 07/15/2025 Travel 07/14/[address] [address] Ligia Becerra MD chartprep 07/12/[address] [address] Ligia Becerra MD Appointment Request 07/11/[address] [address] Sally Rod MD chart prep 07/11/[address] [address] Ligia Becerra MD Nurse Triage 07/05/2025 Refill [facility] [address] [place] [phone] Ligia Becerra MD Candidiasis 07/05/2025 Patient Outreach [address] [address] Ligia Becerra MD Pre-visit Planning (SDOH screening was completed on 04/06/2025) 07/05/2025 Telephone [facility] [address] [place] [phone] Ligia Becerra MD Nurse Triage 07/01/[address] [address] Ligia Becerra MD Nurse Triage 06/30/2025 2:20 PM EST Office Visit [facility] [address] [place] [address] Ligia Becerra MD Acute non-recurrent maxillary sinusitis (Primary Dx); Subacute cough; Candidiasis 06/30/[address] [address] Ligia Becerra MD Nurse Triage 06/30/2025 Travel 06/28/[address] [address] Ligia Becerra MD 06/27/[address] [address] Ligia Becerra MD Nurse Triage 06/17/2025 Patient Outreach [address] [address] Ligia Becerra MD Care Coordination ([facility] outreach for SDOH CCA transportation needs - LVM ) 06/16/[address] [address] María Vásquez, RN Appointment Request 06/16/2025 Patient Outreach [address] [address] Ligia Becerra MD Care Coordination ([facility] outreach for SDOH CCA - transportation needs- LVM ) 06/16/[address] [address] Ligia Becerra MD pt1 06/13/[address] [address] Ligia Becerra MD No Show 06/10/[address] [address] Ligia Becerra MD chartprep 06/06/2025 1:15 PM EDT Office Visit [address] [address] Maribell Duff ANP Chest congestion (Primary Dx); Lower abdominal pain; Wheezing 06/06/2025 Travel 06/06/[address] [address] Ligia Becerra MD Nurse Triage 06/03/2025 11:30 AM EDT Office Visit [facility] [address] [place] [address] Ligia Becerra MD Gender dysphoria (Primary Dx); Psychiatric disorder; Bilateral deafness; Encounter for immunization; Encounter for vaccination; Malodorous urine; Cough, unspecified type 06/03/[address] [address] Ligia Becerra MD Call Back Request; Medication Question 06/03/2025 Travel 06/03/[address] [address] Ligia Becerra MD 06/01/[address] [address] Ligia Becerra MD Call Back Request; chart prep 05/06/2025 3:00 PM EDT Office Visit [facility] [address] [place] [phone] Ron Caballero MD Congestion of upper airway (Primary Dx) 05/06/2025 3:00 PM EDT Immunization [address] [address] Encounter for immunization 05/06/2025 Travel from Last 3 Months Immunizations Immunization Administration [...] Sign Reading Time Taken Comments Blood Pressure 138/86 07/15/2025 10:02 AM EST Pulse 86 07/15/2025 10:02 AM EST Temperature 37.2 C (98.9 F) 07/15/2025 10:02 AM EST Respiratory Rate 20 07/15/2025 10:02 AM EST Oxygen Saturation 98% 06/03/2025 11:46 AM EDT Inhaled Oxygen Concentration - - Weight 86 kg (189 lb 9.6 oz) 07/15/2025 10:02 AM EST Height 162.6 cm (5' 4 ) 07/15/2025 10:02 AM EST Body Mass Index 32.54 07/15/2025 10:02 AM EST Plan of Treatment Upcoming Encounters Date Type Department Care Team (Late st Contact Info) Description 08/31/2025 3:30 PM EST Office Visit [facility] [address] [place] [address] Tarka, Britt, OD [address] [place] [address] Health Maintenance Due Date Last Done Comments Anal Pap 1958 CT Colonography 1958 FIT DNA/Cologuard 1958 FIT 1958 FOBT 1958 Sigmoidoscopy 1958 Dental X-Ray: Full Mouth 05/23/2025 05/22/2022 Dental Oral Exam 09/22/2025 03/21/2025, 04/08/2024 Dental Prophylaxis 09/22/2025 03/21/2025, 04/08/2024 Depression Monitoring 10/07/2025 04/06/2025, 025 Hepatitis A Vaccines (2 of 2 - Risk 2-dose series) 10/07/2025 04/06/2025 COVID-19 Vaccine ( season) 2025 06/03/2025, 05/19/2024, 08/14/2023, Additional history exists Dental X-Ray: Bitewings 03/22/2026 03/21/20 25, 04/08/2024, 11/13/2022 SDOH Screening 04/06/2026 04/06/2025 Alcohol/Substance Use Screening 06/03/2026 06/03/2025 Tobacco Screening 07/15/2026 07/15/2025 Colonoscopy 10/20/2027 10/19/2024, 06/12, 12/01/2009 Colorectal Cancer Screening 10/20/2027 Lipid Panel 07/27/2030 07/27/2025, 07/29/2022 DTaP/Tdap/Td Vaccines (3 - Td or Tdap) 08/15/2032 08/15/2022, 06/22/2015, 09/05/2012 Hepatitis C Screening Completed 07/29/2022 Pneumococcal Vaccine: 50+ Years Completed 05/23/2023, 09/03/2012 RSV Patients and Patients Aged 60 years or older Completed 08/22/2023 Zoster Vaccines Completed 04/06/2024, 08/22/2023 Hepatitis B Vaccines Completed 05/06/2025, 04/06/20 25 Influenza Vaccine Completed 06/03/2025, , 05/23/2023, Additional [...] Procedure Name Priority Date/Time Associated Diagnosis Comments CBC WITH AUTO DIFFERENTIAL Routine 07/27/2025 2:16 PM EST Gammopathy with multiple M spikes LIPID PANEL, STANDARD Routine 07/27/2025 2:16 PM EST Dyslipidemia HEPATIC FUNCTION PANEL Routine 07/27/2025 2:16 PM EST Dyslipidemia VITAMIN D,25-OH,TOTAL,IA Routine 07/27/2025 2:16 PM EST Avitaminosis D BASIC METABOLIC PANEL Routine 07/27/2025 2:16 PM EST Primary hypertension HEMOGLOBIN A1C Routine 07/27/2025 2:16 PM EST Class 2 severe obesity due to excess calories with serious comorbidity in adult, unspecified BMI ALBUMIN, RANDOM URINE W/CREATININE Routine 07/27/2025 2:10 PM EST Primary hypertension POCT RAPID COVID ANTIGEN Routine 06/30/2025 2:03 PM EST Subacute cough POCT INFLUENZA B (ID NOW RAPID MOLECULAR) Routine 06/30/2025 2:02 PM EST Subacute cough POCT INFLUENZA A (ID NOW RAPID MOLECULAR) Routine 06/30/2025 2:02 PM EST Subacute cough URINALYSIS, COMPLETE, WITH REFLEX TO CULTURE Routine 06/03/2025 12:36 PM EDT Malodorous urine PROPHYLAXIS - ADULT Routine 03/21/2025 1 :00 PM EDT Encounter for dental examination Dental calculus Periodontal disease Dental plaque Halitosis BITEWINGS - 4 RADIOGRAPHIC IMAGES Routine 03/21/2025 1:00 PM EDT Encounter for dental examination Dental calculus Periodontal disease Dental plaque Halitosis PERIODIC ORAL EVALUATION - ESTABLISHED PATIENT Routine 03/21/2025 1:00 PM EDT Encounter for dental examination Dental calculus Periodontal disease Dental plaque Halitosis HM COLONOSCOPY Routine 10/19/2024 7:27 PM EDT HEPATITIS C AB W/REFL TO HCV RNA, QN, PCR Routine 07/29/2022 11:16 AM EST Hepatitis B core antibody positive Routine screening for STI (sexually transmitted infection) from Last 3 Months or Most Recently Relevant to Health Maintenance Results * (ABNORMAL) Vitamin D, 25-Hydroxy, Total, Immunoassay (07/27/2025 2:16 PM EST) Vitamin D 25-OH Total 27.2(L) >30 ng/mL [facility] Comment: Health Based Reference Values*< 20 ng/mL [id number] ng/mL Insufficient> 30 ng/mL Sufficient*Vijay MEDRANO. N Engl J Med. 2007;357:266-280There is no well-established upper level of normal vitamin Dlevels. Some laboratories use 50 ng/mL as an upper limit ofnormal. However, toxicity is patient-dependent and may occurat any level. Careful correlation with the patient'spresentation is necessary and, if there is concern forvitamin D toxicity, treatment should be consideredirrespective of the serum level.Care must be taken in interpreting Vitamin D results fromdifferent laboratories and methodologies. Published datademonstrated that results from patients undergoinghemodialysis may show a negative bias when tested withvarious automated 25-OH vitamin D assays when compared toLC-MS/MS.When testing samples from patients whose predominant form ofVitamin D is Vitamin D2, such as patients receiving VitaminD2 supplementation, results that are subtherapeutic shouldbe confirmed with another method such as LC-MS/MS. Blood Venous blood specimen / Unknown 07/27/2025 2:16 PM EST 07/27/2025 4:13 PM EST us Ligia Becerra MD LAB BLOOD ORDERABLES Final Result [facility] [address] [place] [phone] * (ABNORMAL) CBC auto differential (07/27/2025 2:16 PM EST) White Blood Count 7.6 4.8 - 10.8 X10*3/uL [facility] Red Blood Count 4.81 4.60 - 5.80 X10*6/uL [facility] Hemoglobin 14.4 14.0 - 18.0 g/dl [facility] Hematocrit 43.0 42.0 - 52.0 % [facility] Mean Corpuscular Volume 89.4 80.0 - 98.0 fL [facility] Mean Corpuscular Hemoglobin 29.9 27.0 - 33.0 pg [facility] Mean Corpuscular HGB Conc 33.5 31.0 - 36.0 g/dl [facility] Red Cell Distribution Width 13.2 11.0 - 16.0 % [facility] Platelet Count 203 160 - 400 X10*3/uL [facility] Mean Platelet Volume 11.1 9.4 - 12.4 fL [facility] Neutrophils Percent Auto 66.0 45 - 73 % [facility] Imm Gran Pct Auto 0.5(H) 0.0 - 0.4 % [facility] Lymphocytes Percent Auto 20.9 20 - 40 % [facility] Monocytes Percent Auto 9.0 2 - 11 % [facility] Eosinophils Percent Auto 3.6 0 - 4 % [facility] Basophils Percent Auto 0.0 0 - 2 % [facility] NRBC Pct Auto 0.0 0.0 - 0.2 /100WBC [facility] Neutrophils Absolute Auto 5.0 2.0 - 8.3 x10*3/uL [facility] Imm Gran Abs Auto 0.04(H) 0.00 - 0.03 X10*3/uL [facility] Lymphocytes Absolute Auto 1.6 1.2 - 4.9 X10*3/uL [facility] Monocytes Absolute Auto 0.7 0.1 - 1.2 X10*3/uL [facility] Eosinophils Absolute Auto 0.3 0.0 - 0.4 X10*3/uL [facility] Basophils Absolute Auto 0.0 0.0 - 0.2 X10*3/uL [facility] NRBC Abs Auto 0.000 0.0 - 0.012 X10*3/uL [facility] Blood Venous blood specimen / Unknown 07/27/2025 2:16 PM EST 07/27/2025 4:13 PM EST Ligia Becerra MD LAB BLOOD ORDERABLES Final Result Performing Organization Address City/[facility] Co de Phone Number [facility] [address] [place] [phone] * Hemoglobin A1c (07/27/2025 2:16 PM EST) Hemoglobin A1c 5.4 <6.0 % [facility] Comment:Hemoglobin A1C Refer ence Range Adults: 4.8 - 6.0 % Non diabetic: < 6.0 % Goal: < 7.0 %Additional Action Suggested: > 8.0 %Note: Hemoglobin A1c results are invalid for patients with abnormal amounts of HbF. Blood transfusions may impact the HbA1c concentration in the patient sample. Estimated Average Glucose 108 mg/dL [facility] Comment:eAG = Estimated ave rage glucose which is %A1C expressed asaverage glucose, using the formula of the P8M-ClgcxdhHsubsld Glucose study (ADAG), Diabetes Care, Vol.31,#8,2007 Blood Venous blood specimen / Unknown 07/27/2025 2:16 PM EST 07/27/2025 4:13 PM EST Ligia Becerra MD LAB BLOOD ORDERABLES Final Result Performing Organization Address [facility] Co de Phone Number [facility] [address] [place] [phone] * Hepatic Function Panel (07/27/2025 2:16 PM EST) Bilirubin, Total 0.6 0.0 - 1.0 mg/dL [facility] Bilirubin, Direct 0.2 0.0 - 0.5 mg/dL [facility] Aspartate Amino Transferase 34 5 - 37 U/L [facility] Alanine Aminotransferase 21 0 - 40 U/L [facility] Total Protein 7.1 6.5 - 8.0 g/dL [facility] Albumin Level 4.5 3.5 - 5.0 g/dL [facility] Alkaline Phosphatase 68 39 - 117 U/L [facility] Blood Venous blood specimen / Unknown 07/27/2025 2:16 PM EST 07/27/2025 4:13 PM EST us Ligia Becerra MD LAB BLOOD ORDERABLES Final Result [facility] [address] [place] [address] [phone] * (ABNORMAL) Lipid Panel, Standard (07/27/2025 2:16 PM EST) Triglycerides 121 <150 mg/dL [facility] Comment:Desirable Triglyceri de: less than 150 mg/dLBorderline High Triglyceride 150-199 mg/dLHigh Triglyceride: 200-499 mg/dLVery High Triglyceride: greater than or equal to 5OO mg/dL Cholesterol 158 <200 mg/dL [facility] Comment:Desirable Cholestero l: less than 200 mg/dLBorderline High Cholesterol: 200-239 mg/dLHigh Cholesterol: greater than 239 mg/dL LDL Cholesterol Calculated 106(H) <100 mg/dL [facility] Comment:Desirable LDL: less than 100 mg/dLNear Optimal/Above Optimal LDL: 110- 129 mg/dLBorderline High LDL: 130-159 mg/dLHigh LDL: 160-189 mg/dLVery High LDL: greater than or equal to 190 mg/dL HDL Cholesterol 28(L) >40 mg/dL [facility] Comment:Desirable HDL: great er than 40 mg/dL Note: This HDL assay may give artificially low results in patients with liver disease. Blood Venous blood specimen / Unknown 07/27/2025 2:16 PM EST 07/27/2025 4:13 PM EST Ligia Becerra MD LAB BLOOD ORDERABLES Final Result Performing Organization Address [facility]/ZIP Co de Phone Number [facility] [address] [place] [phone] * (ABNORMAL) Basic Metabolic Panel (07/27/2025 2:16 PM EST) Sodium 141 135 - 145 mmol/L [facility] Potassium 4.0 3.3 - 5.1 mmol/L [facility] Chloride 109(H) 96 - 108 mmol/L [facility] Carbon Dioxide 25 22 - 29 mmol/L [facility] Anion Gap 11(L) 12 - 20 [facility] Urea Nitrogen (BUN) 22(H) 9 - 16 mg/dL [facility] Creatinine, Serum 1.00 0.5 - 1.4 mg/dL [facility] Estimated Glomerular Filt Rate >60 [facility] Comment:Chronic Kidney Disea se: Estimated GFR < 60 mL/min/[id number] Kidney Disease: Estimated GFR < 15 mL/min/1.73m2 Glucose 122(H) 60 - 115 mg/dL [facility] Calcium 9.3 8.4 - 10.2 mg/dL [facility] Blood Venous blood specimen / Unknown 07/27/2025 2:16 PM EST 07/27/2025 4:13 PM EST Ligia Becerra MD LAB BLOOD ORDERABLES Final Result Performing Organization Address City/[facility]/ZIP Co de Phone Number [facility] [address] [place] [phone] * Albumin, Random Urine W/Creatinine (07/27/2025 2:10 PM EST) Creatinine, Urine 173.69 mg/dL [facility] Microalbumin Urine 40.0 mg/L [facility] Microalbum Creatinine Ratio Ur 23.0 <30 ug/mg cr [facility] Comment:Albumin/Creatinine R atio Reference Ranges: Normal: < 30 ug/mg creatinine Microalbuminuria: 30 - 300 ug/mg creatinineClinical Albuminuria: > 300 ug/mg creatinine Urine 07/27/2025 2:10 PM EST 07/27/2025 4:20 PM EST Ligia Becerra MD LAB URINE ORDERABLES Final Result Performing Organization Address City/[facility]/ZIP Co de Phone Number [facility] [address] [place] [phone] * POCT Rapid COVID-19 Binax NOW (06/30/2025 2:03 PM EST) [facility] Rapid COVID Ag Negative QC Media Lot # [id number] Lot# Expiration Date Swab 06/30/2025 2:03 PM EST Ligia Becerra MD POINT OF CARE TEST ENTER/E DIT ORDERABLES Final Result * POCT Rapid Influenza B TINEO ID NOW (06/30/2025 2:02 PM EST) [facility] Influenza B Negative Negative, Indeterminate [facility] QC Media Lot # [id number] [facility] Lot# Expiration Date [facility] Swab 06/30/2025 2:02 PM EST Ligia Becerra MD POINT OF CARE TEST ENTER/E DIT ORDERABLES Final Result Performing Organization Address City/[facility]/ZIP Co de Phone Number [facility] [address] [place] [phone] * POCT Rapid Influenza A TINEO ID NOW (06/30/2025 2:02 PM EST) [facility] Influenza A Negative Negative, Indeterminate [facility] QC Media Lot # [id number] [facility] Lot# Expiration Date [facility] Swab 06/30/2025 2:02 PM EST Ligia Becerra MD POINT OF CARE TEST ENTER/E DIT ORDERABLES Final Result Performing Organization Address [facility]/ZIP Co de Phone Number [facility] [address] [place] [phone] * Urinalysis, Complete, with Reflex to Culture (06/03/2025 12:36 PM EDT) Color Urine Yellow [facility] Appearance Urine Clear [facility] PH 6.0 5.0 - 9.0 [facility] Glucose Urine UA Negative Negative mg/dL [facility] Urine Blood Negative Negative [facility] Specific [place] - Urine 1.020 1.005 - 1.025 [facility] Urine Protein Negative Neg-Trace mg/dL [facility] Urine Ketones Negative Negative mg/dL [facility] Nitrite Urine Negative Negative [facility] Leukocyte Esterase Urine Negative Negative [facility] RBC Urine 0-2 0 - 2 /HPF [facility] Urine WBC 0-5 0 - 5 /HPF [facility] Urine Squamous Epithelial Cell 3-5 0 - 2 /HPF [facility] Urine Bacteria None Seen None Seen [facility] Hyaline Casts, Urine 0-2 0 - 2 /LPF [facility] Urine Urine specimen obtained by clean catch procedure / Unknown 06/03/2025 12:36 PM EDT 06/03/2025 4:15 PM EDT Narrative [facility] - 06/03/2025 4:38 PM EDT [id number], Clean Catch Ligia Becerra MD LAB URINE ORDERABLES Final Result Performing Organization Address [facility]/ZIP Co de Phone Number [facility] [address] [place] [phone] * (ABNORMAL) Hm Colonoscopy (07/02/2024) Colonoscopy Abnormal( A) Normal Comment:tubular adenoma with Dr. Slade Tres Provider HEALTH MAINTENANCE Final Result * Hepatitis C Antibody with Reflex to HCV, RNA, Quantitative, Real-Time PCR (07/29/2022 11:16 AM EST) Hepatitis C Antibody NON-REACT MOE NON-REACT MOE [employer] Index 0.06 <1.00 [employer] Comment: HCV antibody was non-reactive. There is no laboratory evidence of HCV infection. In most cases, no further action is required. However, if recent HCV exposure is suspected, a test for HCV RNA (test code 08397) is suggested. For additional information please refer to http://education.Scalado/faq/PFH67g7 (This link is being provided for informational/ educational purposes only.) Blood Venous blood specimen / Unknown 07/29/2022 11:16 AM EST 07/29/2022 11:17 AM EST Narrative [facility] - 08/02/2022 10:49 PM EST FASTING:YES FASTING: YES Ligia Becerra MD LAB BLOOD ORDERABLES Final Result [facility] [address] [place] [phone] [employer] [address] [facility], ([address]) [place] [phone] from Last 3 Months or Most Recently Relevant to Health Maintenance Insurance [facility] OPTIONS (HMO D-SNP) [facility] Advance Directives Documents on File Type Date Recorded Patient Manager Case Expl anation Advance Directives and Living Will 03/23/2024 10:24 AM Health Care Proxy Care Teams Director Of Parks And Recreation Relationship Specialty Start Date End Date Mariam, MD Ligia [address] [place] [address] PCP - General Family Medicine 07/22/22 Jair Pro MD [address] [place], [place] [phone] Urology 07/24/24 Tim Nolen [address] [place] [address] Neurosurgery 07/24/24 Trung Slade MD [address] [place] [address] Gastroenterology 10/19/24 Chucho Sexton [facility] Case Management 06/03/25
--- OUTSIDE RECORDS SUMMARY | 2025-07-27 18:45 | XMS_ITS | Encounter Summary ---
Author Organization [employer] Address [address] [place] [address] Care Team Providers Care Banbury Mixer Operator Name Role Phone Ligia Becerra MD Primary Care Provider [phone] Jair Pro MD Unavailable [phone] Tim Herrera Unavailable Trung Slade MD Unavailable [phone] Reason for Visit * Reason Onset Date Comments Durable Medical Equipment 03/22/2024 Encounter Details Date Type Department Care Team (Late st Contact Info) Description 03/22/2024 Telephone [facility] MEDICINE [address] [place], [place] [phone] Ligia Becerra MD [address] [place], [place] [phone] Durable Medical Equipment Social History Tobacco Use [...] Sopra Cream Recliner Please contact pt at [phone] documented in this encounter Plan of Treatment Upcoming Encounters Date Type Department Care Team (Late st Contact Info) Description 08/31/2025 3:30 PM EST Office Visit [facility] OPTOMETRY [address] [place] [address] Britt Zurita, OD [address] [place] [address] documented as of this encounter Visit Diagnoses Not on filedocumented in this encounter Additional Health Concerns Assessment Noted Time PHQ-9 Depression Total Score: 3 03/18/20 24 11:59 AM EDT documented as of this encounter Care Teams Banbury Mixer Operator Relationship Specialty Start Date End Date Ligia Becerra MD [address] [place] [address], [place] [address] PCP - General Family Medicine 07/22/22 Jair Pro MD [address] [place] [address] Urology 07/24/24 Tim Herrera [address] [place] [address] Neurosurgery 07/24/24 Trung Slade MD [address] [place] [address] Gastroenterology 10/19/24 Chucho Sexton [employer] [facility] Case Management 06/03/25 documented as of this encounter
--- OUTSIDE RECORDS SUMMARY | 2025-07-27 18:45 | XMS_ITS | Data Portability ---
Author Organization [employer] [facility], [email or web address] [facility] Address [address] [place] [address] Care Team Providers Care Veneer Clipper Helper Name Role Phone HIM CCA OTHER Assessment [...] team will f/up send out blood/urine tests. [email or web address] Not available 10/17/2023 19:47:56 11/18/2023 11/18/2023 I have reviewed and agree with the assessment and plan as documented by the leathersmith. I provided real time medical direction for this encounter and was immediately available to provide additional phone based assistance as needed. History as noted by leathersmith. Pt with recent dysuria and fever, was seen yesterday in the [facility] ED and he reports he was diagnosed [...] with acute pyelonephritis reportedly diagnosed in the [facility] ED yesterday, currently taking cefpodoxime as prescribed. [...] Long declined to work with available ALS flower machine operator, reporting to the medic that she didn't want to talk because I'm in a bad mood. A roommate reports that Ms. Long has been endorsing a sensation of incomplete rondon drainage and bladder heaviness. VSS. Medic on site reports male genitalia with rondon draining clear yellow urine. Recommended re-engaging dividend deposit entry clerk to offer fresh rondon placement and UA. [...] None recorded. Lab culture, urine 2023 024 [place] [facility] (Centralized Electronic Ordering - All Locations), Patient Can Go To The Location Of Their Choice, [id number] 4 16:06:44 urinalysis, dipstick 2023 024 [facility], [address] [place] [address], [id number] 4 15:29:28 rapid SARS CoV 2 Ag, QL IA, respiratory specimen 2023 024 [facility], [address] [place] [address], [id number] 4 19:47:31 rapid flu (A+B) 2023 024 [facility], [address] [place] [address], [id number] 4 19:40:26 culture, urine 2023 024 [place] [facility] (Central[facility] Order[facility] - All Locations), Patient Can Go To The Location Of Their Choice, [address] 4 07:31:35 urinalysis, dipstick 2023 [email or web address] [place] [address], [address] [place] [address], [id number] 4 15:29:58 BMP, serum or plasma 2023 024 [email or web address] 7 [facility], [address] [place] [address], [id number] 4 15:32:56 CT, DNA, qual, PCR, unspecified specimen 2023 024 [place] [facility] (Centralized Electronic Ordering - All Locations), Patient Can Go To The Location Of Their Choice, [id number] 4 18:49:09 neisseria gonorrhoeae , culture, unspecified specimen 2023 024 [place] [address] [facility] (Centralized Electronic Ordering - All Locations), Patient Can Go To The Location Of Their Choice, [address] 4 10:51:54 unlisted lab - HIV Ab-Ag w/rflx to HIV qnt 2023 024 [place] [facility] (Centralized Electronic Ordering - All Locations), Patient Can Go To The Location Of Their Choice, [address] 4 11:07:49 unlisted lab - HIV-1 RNA quant (viral load), plasma 2023 024 [place] [address] [facility] (Centralized Electronic Ordering - All Locations), Patient Can Go To The Location Of Their Choice, [id number] 4 10:51:54 RPR (rapid plasma reagin), titer, serum 2023 024 [place] [facility] (Centralized Electronic Ordering - All Locations), Patient Can Go To The Location Of Their Choice, [address] 4 11:08:23 Referral None recorded. Procedures None recorded. Surgeries None recorded. Imaging electrocard iogram 2024 025 [facility], [address] [place] [address], [id number] 5 05:01:08 electrocard iogram 2023 024 [facility], [address] [place] [address], [id number] 4 20:46:46 Medication Orders Medrol (Barney) 4 mg tablets in a dose pack 2024 025 [facility], [address], [place], [id number], 5 17:30:22 cefpodoxime 200 mg tablet 2023 024 [facility] #18642, [address], [place], [id number], 4 15:02:45 Pyridium 200 mg tablet 2023 024 [facility] #58324, [address], [place], [id number], 4 14:11:56 ketorolac 30 mg/mL injection solution [...] Go To The Location Of Their Choice, [address] 10/18/2023 11:07:49 10/17/1910/18/2023 SYPHI LIS TESTI NG [...] Go To The Location Of Their Choice, [address] 10/19/2023 07:31:34 10/17/19 24 10/20/2023 CHLAM YDIA [...] Go To The Location Of Their Choice, [address] 10/20/2023 18:49:09 10/17/19 24 10/17/2023 BMP, serum or plasm a BUN 16 Not Available Main - Ins [address], [address] [place] [address] 10/17/2023 15:25:47 10/17/19 24 10/17/2023 BMP, serum or plasm a CRE 0.9 Not Available Main - [facility] [address], [address] [place] [address] 10/17/2023 15:25:47 10/17/19 24 10/17/2023 BMP, serum or plasm a K+ 4.3 Not Available Main - [facility] [address], [address] [place] [address] 10/17/2023 15:25:47 10/17/19 24 10/17/2023 BMP, serum or plasm a Na+ 140 Not Available Main - [facility] [address], [address] [place] [address] 10/17/2023 15:25:47 10/17/19 24 10/17/2023 urina lysis , dipst ick Leukocytes neg Not Available [facility] - [facility] [address] [place] [address], [address] [place] [address] 10/17/2023 15:21:36 10/17/19 24 10/17/2023 urina lysis , dipst ick Nitrite negati ve Not Available Main - [facility] [address] [place] [address], [address] [place] [address] 10/17/2023 15:21:36 03/24/20 24 03/25/2024 URINE CULTU RE, ROUTI NE urine culture, routine Final report Not Available [facility] ([facility]) [address] [facility], [place], [address], 03/25/2024 16:06:43 03/24/20 24 03/25/2024 URINE CULTU RERACHEL result 1 No growth Not Available [facility] ([facility]) [address] [facility], [place], [address], 03/25/2024 16:06:43 10/17/19 24 10/17/2023 elect rocar diogr am No observ ation record ed. [email or web address] Main - [facility] [address] [place] [address], [id number] 10/18/2023 09:30:43 08/20/1908/20/2024 elect rocar diogr am No observ ation record ed. [email or web address] [facility] [address] [place] [address], [id number] 08/20/2024 08:59:12 Result Notes None recorded. Medical [...] t Available Vitals Date Recorded Oxygen saturation Respiratory rate Body temperature Body weight Body height Heart rate Systolic And Diastolic Provider Name and Address Organization Details Last Updated DateTime 5 98 % 14 /min 98 [degF] 027354 g 167.64 cm 80 /min 139/84 mm[Hg] Not Available [facility] - production 5 17:08:54 Date Recorded Body temperature Oxygen saturation Respiratory rate Heart rate Systolic And Diastolic Provider Name and Address Organization Details Last Updated DateTime 4 98 [degF] 99 % 18 /min 50 /min 127/79 mm[Hg] Not Available [facility] - production 4 15:13:09 Date Recorded Respiratory rate Oxygen saturation Body height Heart rate Body temperature Body weight Systolic And Diastolic Provider Name and Address Organization Details Last Updated DateTime 4 14 /min 98 % 152.4 cm 80 /min 98.4 [degF] 05353.4 g 140/84 mm[Hg] Not Available [employer] [facility] - production 15:56:06 Date Recorded Body temperature Heart rate Respiratory rate Systolic And Diastolic Provider Name and Address Organization Details Last Updated DateTime 11/18/2023 97.1 [degF] 60 /min 16 /min 109/63 mm[Hg] Not Available [employer] [facility] - production 13:06:39 Date Recorded Body temperature Heart rate Respiratory rate Systolic And Diastolic Provider Name and Address Organization Details Last Updated DateTime 03/24/2024 98.5 [degF] 65 /min 16 /min 100/56 mm[Hg] Not Available [facility] - production 14:45:30 Social History None recorded. Functional Status None recorded. Mental Status None recorded. Family History Nothing Reported. Medical History No medical history recorded. Past Encounters Encounter ID Performer Location Encounter Start Date Encounter Closed Date Diagnosis/Indication Diagnosis SNOMED-CT Code Diagnosis ICD10 Code Diagnosis IMO Codes Diagnosis Note [id number] TRESA ESPINAL MD Main - [facility] [address] [place] [phone] 10/17/2023 15:12:51 10/19/2023 16:23:16 Discharge from penis 8311457 R36.9 Urinary symptoms 3702067 08 R39.9 Dizziness 030192147 R42 Chronic low back pain 27 0237142 M54.50 [id number] Jordan Guerra MD Main - [facility] [address] [place] [phone] 11/13/2023 15:30:00 11/14/2023 15:04:19 Constipation 64105070 K59.00 Recent ED stay for constipati on, [...] which to seek higher level of care. [id number] Napoleon Kerr MD Main - [facility] [address] [place] [address] 11/18/2023 13:06:37 11/19/2023 13:27:53 Acute pyelonephritis 59418325 N10 [id number] Fadia Mtz MD Main - [facility] [address] [place] [phone] 0 03/24/2024 14:45:24 04/05/2024 21:14:15 Urinary symptoms 022242219 R39.9 [id number] LLOYD DOMINGUEZ MD Main - [address] [address] 08/19/2024 17:07:07 08/20/2024 12:42:33 Pain of right shoulder joint 1141630991 7284495 M25.511 Evaluation in the field was performed by my leathersmith colleague, as noted above, I provided real-time [...] Francis Member ID Guarantor Name 08/19/2024 1 [facility] - DOS ON OR AFTER 2022 - DUAL ELIGIBLE - DETENTION OPTIONS AND ONE CARE (MEDICARE REPLACEMENT/ADV ANTAGE - HMO) Jacob Long [id number] Jacob Long Notes Date Note Type Note Provider Name and Address Organization Details Recorded Time 10/17/2023 text/html HPI: Muscles tensing, heat and pain radiating from abdomen, sweating ...................... ...................... ...................... ...................... ...................... ...................... ......... CRC Nurse Triage Notes (Sunny Morris): Comments: Outreach call to Pratima Meade and the member to obtain additional information - VM - Member is JAYNE ...................... ...................... ...................... ...................... ...................... ...................... ......... Nuclear Weapons Specialist Note From Jenn Gonsalez: Sent to a [...] neg; 12 lead ECG: sinus bradycardia(uploaded to [employer]); Urine sample obtained; urine dip performed: (uploaded to [employer]); IV access/venous blood draw initiated; Chem8+ results: uploaded to [employer]. [facility] consulted, pt unable to state when he was last sexually active with his ex boyfriend; [facility] orders Ceftriaxone 500mg IV, Ketorolac 30mg IV, and Normal Saline 1 liter IV. [facility] orders urine culture, syphillis, HIV, Chlamydia, and Gonorrhea tests to be sent to [facility]. Ceftriaxone 500mg IV, Ketorolac 30mg IV, and Normal Saline 1 liter IV administered. Pt reports slight improvement. Red flags discussed. Pt given [employer] phone number for future use. Pt has no further questions. [facility] Lab Orders: culture, urine: Performed urinalysis, dipstick: Performed BMP, serum or plasma: Performed CT, DNA, qual, PCR, unspecified specimen: Performed neisseria gonorrhoeae, culture, unspecified specimen: Performed unlisted lab - HIV Ab-Ag w/rflx to HIV qnt: Performed unlisted lab - HIV-1 RNA quant (viral load), plasma: Performed RPR (rapid plasma reagin), titer, serum: Performed [facility] Medication Orders: ketorolac 30 mg/mL injection solution: Administered sodium chloride 0.9 % intravenous solution: Administered ceftriaxone 500 mg solution for injection: Administered ...................... ...................... ...................... ...................... ...................... ...................... ......... Disposition: Fulfilled TRESA ESPINAL MD [address] [place] [address],[address], [place], [address], [facility] - [facility] [employer] 10/17/2023 19:48:05 11/13/2023 text/html ROS as noted in the [facility] CRC Nurse Triage Notes (Arlet Perdue): Chief [...] difficult to get information with the relay academic services professional called CRU M ember call transferred to this CRU nurse, call completed with screw machine operator swiss type line. Member c/o back pain, constipation, difficulty [...] ...................... ...................... ...................... ...................... ...................... ...................... ......... Nuclear Weapons Specialist Note From Tyrell Gardner: Are patient conscious alert and oriented times three complains of constipation. Patient and joy operator helper deaf all information through written communication and gestures. Patient presents paperwork showing he was at [facility] today and had a rondon taken out. [...] had a poor understanding of MiraLAX dosing. [facility] encourages patient to continue using [employer] dosing explained in written form so the patient understands. Red flags and patient education discussed. ...................... ...................... ...................... ...................... ...................... ...................... ......... Disposition: Fulfilled Jordan Guerra MD [address] [place] [address],[address] [facility], [place], [address], [employer] 11/13/2023 18:39:45 11/18/2023 text/html ROS as noted in the HPI This was a supervised home visit with leathersmith Ervin Muñoz. HPI: Off and on burning during urination. Went to ED the other day but still not feeling well. Member stopped taking medication prescribed by ED because he was urinating too much. ...................... ...................... ...................... ...................... ...................... ...................... ......... CRC Nurse Triage Notes (Arlet Perdue): Comments: CRC RN DID NOT NEED FURTHER INFO ...................... ...................... ...................... ...................... ...................... ...................... ......... Nuclear Weapons Specialist Note From Ervin Muñoz: Pt reports he was dx with pylo yesterday at [facility] ED, d/c with cefpodoxime 200 mg bid [...] ...................... ...................... ...................... ...................... ......... Disposition: Solitario Kerr MD [address] [facility],[address], [place], [address], [employer] 11/18/2023 15:33:18 03/24/2024 text/html HPI: deafness, gender dysphoria, BPH/UTI, Hep B core antibody. Pt is offered [facility] visit today but, declines. Pt reports rondon [...] ......... Baseline Information: Baseline Creatinine: 1.02 mg/dL Nuclear Weapons Specialist Organization Information for Elvin Humphrey [employer] Legal Name: [employer]. Address: [address] [place] [address], Loader: Terry Juarez MD CLIA No.: [id number] Nuclear Weapons Specialist POC Test Results from Kam Elvin - ALS Urine Dipstick (15:54:39) Urine leukocytes: + ABDELRAHMAN Urine nitrites: + NIT Urine urobilinogen: - URO Urine protein: - PRO Urine pH: 6.0 pH Urine blood: + BLO Urine specific gravity: 1.010 SG Urine ketones: + KET Urine bilirubin: - NIMCO Urine glucose: - GLU ...................... ...................... ...................... ...................... ...................... ...................... ......... Nuclear Weapons Specialist Note From Elvin Humphrey: Dispatched to the [...] the bag again. UA (+). Culture obtained. [facility] consulted. Script called into preferred pharmacy. Red flags discussed. ALL times are approx. ...................... ...................... ...................... ...................... ...................... ...................... ......... Disposition: Solitario Fadia Mtz MD [address] [place] [address],[address], [place], [address], [facility] [employer] 04/05/2024 19:40:24 08/19/2024 text/html ROS as noted in the HPI HPI: Call to Ashley Angeles for triage below with [facility] liquid fertilizer servicer. Patient reports having chest pain and arm pain x 2 days. Pt having pain that is diffuse over chest intermittent, left arm and left flank pain. No SOB, MORRISSEY or dizziness. Denies any cough. No urinary sx. Pt unable to come into ur walk in center. Agrees to [email or web address] for evaluation. Confirmed demographics and allergies. ...................... ...................... ...................... ...................... ...................... ...................... ......... CRC Nurse Triage Notes (Arlet Perdue - RN): Chief Complaints: Chest pain PMH: Coronary Artery Disease, Hypertension, Anxiety Disorder, Chronic Back Pain PMH Reviewed at 08/19/2024 - 15:09 Allergies Reviewed at 08/19/2024:09 Comments: Verified address on the call. Pain is going into the arm and chest and lower back. She feels like her leg muscles , She refusing the ER at this time. She is refusing the ER as she is unable to get out of the home. Pt denies any cardiac history Nuclear Weapons Specialist Organization Information for Tyrell Gardner [employer] Legal Name: [facility] Address: [address] [place] [address], [place] [address], Loader: Hu FLORES No.: [id number] Nuclear Weapons Specialist POC Test Results from Tyrell Gardner EKG (17:06:14) EKG test performed. Attachments uploaded as part of this test result can be found under Documents section. ...................... ...................... ...................... ...................... ...................... ...................... ......... Nuclear Weapons Specialist Note From Tyrell Gardner: Pt on right side in bed. Patient deaf no depot manager available information through written communication and onscene [...] negative increase work of breathing. Ecg to [facility]. [facility] prescribes, methylprednisone to patient s local pharmacy. Patient reports if pain continues he l l return to emergency room. Red flags, patient education discussed. ...................... ...................... ...................... ...................... ...................... ...................... ......... [facility] Consulted: Lloyd Dominguez ...................... ...................... ...................... ...................... ...................... ...................... ......... Disposition: Solitario DOMINGUEZ MD [address] [facility],[address], [place], [address], [facility]ISAL YA 08/20/2024 00:32:06
--- OUTSIDE RECORDS SUMMARY | 2025-07-27 18:45 | XMS_ITS | Encounter Summary ---
Author Organization [employer] Address [address] [place] [address] Care Team Providers Care System Analyst Name Role Phone Ligia Becerra MD Primary Care Provider [phone] Jair Pro MD Unavailable Tim Herrera Unavailable [phone] Trung Slade MD Unavailable [phone] Reason for Visit * Reason Comments Med Refill Encounter Details Date Type Department Care Team (Late st Contact Info) Description 07/18/[address] [facility] [address] [place], [place] [phone] Yajaira Dior DO [address] [place], [place] [phone] Social History Tobacco Use Types Packs/Day Years [...] Description 08/31/2025 3:30 PM EST Office Visit [facility] [address] [place] [address] Britt Zurita, OD [address] [place] [address] documented as of this encounter Visit Diagnoses Not on filedocumented in this encounter Additional Health Concerns Assessment Noted Time PHQ-9 Depression Total Score: 11 025 3:12 PM EDT documented as of this encounter Care Teams System Analyst Relationship Specialty Start Date End Date Ligia Becerra MD [address] [place] [address] PCP - General Family Medicine 07/22/22 Jair Pro MD [address] [place] [address] Urology 07/24/24 Tim Herrera [address] [place] [address] Neurosurgery 07/24/24 Trung Slade MD [address]rd [place] [address] Gastroenterology 10/19/24 Chucho Sexton [facility] Case Management 06/03/25 documented as of this encounter
--- OUTSIDE RECORDS SUMMARY | 2025-07-27 18:46 | XMS_ITS | Encounter Summary ---
Author Organization [employer] Address [address] [place] [address] Care Team Providers Care Peripheral Edp Equipment Operator Name Role Phone Ligia Becerra MD Primary Care Provider [phone] Jair Pro MD Unavailable [phone] Tim Herrera Unavailable Trung Slade MD Unavailable [phone] Reason for Visit * Reason Onset Date Comments Nurse Triage 12/30/2024 Encounter Details Date Type Department Care Team (Late st Contact Info) Description 12/30/2024 Telephone [facility] [address] [place], [place] [phone] Ligia Becerra MD [address] [place], [place] [phone] Nurse Triage Social History Tobacco Use Types [...] caller accepted this outcome. Contact pt at [phone] (geodesy teacher) * Telephone Encounter - Shannon Angeles - 12/30/2024 9:34 AM EDT Symptoms: Headache, Colds, Lethargic (Tired), Eye Redness Without Pus or Discharge, Loss of Appetite- Painful, Cough Outcome: Schedule a same-day appointment or talk to a nurse or provider today Reason: Caller denied all higher acuity questions The caller accepted this outcome. [phone] documented in this encounter Plan of Treatment Upcoming Encounters Date Type Department Care Team (Late st Contact Info) Description 08/31/2025 3:30 PM EST Office Visit [facility] [address] [place] [address] Britt Zurita, OD [address] [place] [address] documented as of this encounter Visit Diagnoses Not on filedocumented in this encounter Additional Health Concerns Assessment Noted Time PHQ-9 Depression Total Score: 3 03/18/20 24 11:59 AM EDT documented as of this encounter Care Teams Peripheral Edp Equipment Operator Relationship Specialty Start Date End Date Ligia Becerra MD [address] [place] [address] PCP - General Family Medicine 07/22/22 Jair Pro MD [address] [place] [address] Urology 07/24/24 Tim Herrera [address] [place] [address] Neurosurgery 07/24/24 Trung Slade MD [address] [place] [address] Gastroenterology 10/19/24 Chucho Sexton [facility] Case Management 06/03/25 documented as of this encounter
--- OUTSIDE RECORDS SUMMARY | 2025-07-27 18:46 | XMS_ITS | Encounter Summary ---
Author Organization [employer] Address [address] [place] [address] Care Team Providers Care General Production Laborer Name Role Phone Ligia Becerra MD Primary Care Provider [phone] Jair Pro MD Unavailable [phone] Tim Herrera Unavailable [phone] Trung Slade MD Unavailable [phone] Encounter Details Date Type Department Care Team (Late st Contact Info) Description 07/30/[address] [facility] MED[facility]INE [address] [place], [place] [phone] Ligia Becerra MD [address] [place], [place] [phone] Social History Tobacco Use Types Packs/Day Years [...] PM EST Office Visit [facility] [address] [place] [address] Tarka Britt, OD [address] [place] [address] documented as of this encounter Visit Diagnoses Not on filedocumented in this encounter Additional Health Concerns Assessment Noted Time PHQ-9 Depression Total Score: 18 023 3:56 PM EDT documented as of this encounter Care Teams General Production Laborer Relationship Specialty Start Date End Date Ligia Becerra MD [address] [place] [address] PCP - General Family Medicine 07/22/22 Jair Pro MD [address] [place] [address] Urology 07/24/24 Tim Herrera [address] [place] [address] Neurosurgery 07/24/24 Trung Slade MD [address]rd [place] [address] Gastroenterology 10/19/24 Chucho Sexton [facility] Case Management 06/03/25 documented as of this encounter
--- OUTSIDE RECORDS SUMMARY | 2025-07-27 18:46 | XMS_ITS | Encounter Summary ---
Author Organization [employer] Address [address] 7t [place] [address] Care Team Providers Care Detonator Assembler Name Role Phone Ligia Becerra MD Primary Care Provider +1- [phone] Jair Pro MD Unavailable Tim Herrera Unavailable Trung Slade MD Unavailable [phone] Reason for Visit * Reason Onset Date Comments Nurse Triage 10/08/2023 Encounter Details Date Type Department Care Team (Late st Contact Info) Description 10/08/2023 Telephone [facility] MEDICINE 230 [place], [place] [phone] Ligia Becerra MD 230 [place], [place] [phone] Nurse Triage Social History Tobacco Use Types [...] PM EST Call to Ashley Angeles via [employer] relay video cut off man. Pt reports having back pain that is [...] Description 08/31/2025 3:30 PM EST Office Visit [facility] OPTOMETRY [address] [place] [address] TarBritt burks, OD [address] [place] [address] documented as of this encounter Visit Diagnoses Not on filedocumented in this encounter Additional Health Concerns Assessment Noted Time PHQ-9 Depression Total Score: 18 023 3:56 PM EDT documented as of this encounter Care Teams Detonator Assembler Relationship Specialty Start Date End Date Ligia Becerra MD 230 [place] [address] PCP - General Family Medicine 07/22/22 Jair Pro MD [address] [place] [address] Urology 07/24/24 Tim Herrera [address] [place] [address] Neurosurgery 07/24/24 Trung Slade MD [address] 3rd [place] [address] Gastroenterology 10/19/24 Chucho Sexton [facility] Case Management 06/03/25 documented as of this encounter
--- OUTSIDE RECORDS SUMMARY | 2025-07-27 18:46 | XMS_ITS | Encounter Summary ---
Author Organization [employer] Address [address] 7t [place] [address] Care Team Providers Care Transliterator Name Role Phone Ligia Becerra MD Primary Care Provider +1- [phone] Jair Pro MD Unavailable Tim Herrera Unavailable Trung Slade MD Unavailable [phone] Reason for Visit * Reason Onset Date Comments PT1 10/20/2024 Encounter Details Date Type Department Care Team (Late st Contact Info) Description 10/20/2024 Telephone [facility] MEDICINE 230 [place], [place] [phone] Ligia Becerra MD 230 [place], [place] [phone] PT1 Social History Tobacco Use Types Packs/Day [...] Y/N: Yes Provider name or facility name: [address] [place] [address] Escort needed: Y/N: Yes Do you have a wheelchair: Y/N: No ( has walker) If yes- Manual or electric: N/A Visits: (1x monthly) Appt November 08 documented in this encounter Plan of Treatment Upcoming Encounters Date Type Department Care Team (Late st Contact Info) Description 08/31/2025 3:30 PM EST Office Visit [facility] OPT[facility] [address] [place] [address] Britt Zurita, OD 267 [place] [address] documented as of this encounter Visit Diagnoses Not on filedocumented in this encounter Additional Health Concerns Assessment Noted Time PHQ-9 Depression Total Score: 3 03/18/20 24 11:59 AM EDT documented as of this encounter Care Teams Transliterator Relationship Specialty Start Date End Date Ligia Becerra MD 230 [place] [address] PCP - General Family Medicine 07/22/22 Jair Pro MD [address] [place] [address] Urology 07/24/24 Tim Herrera [address] [place] [address] Neurosurgery 07/24/24 Trung Slade MD [address] 3rd [place] [address] Gastroenterology 10/19/24 [facility] 06/03/25 documented as of this encounter
--- OUTSIDE RECORDS SUMMARY | 2025-07-27 18:46 | XMS_ITS | Encounter Summary ---
Author Organization [employer] Address [address] 7t [place] [address] Care Team Providers Care Order Management Specialist Name Role Phone Ligia Becerra MD Primary Care Provider +1- [phone] Jair Pro MD Unavailable Tim Herrera Unavailable [phone] Trung Slade MD Unavailable [phone] Reason for Visit * Reason Onset Date Comments Nurse Triage 09/15/2023 Encounter Details Date Type Department Care Team (Late st Contact Info) Description 09/15/2023 Telephone [facility] MEDICINE 230 [place], [place] [phone] Ligia Becerra MD 230 [place], [place] [phone] Nurse Triage Social History Tobacco Use Types [...] accepted this outcome Please contact pt at [phone] documented in this encounter Plan of Treatment Upcoming Encounters Date Type Department Care Team (Late st Contact Info) Description 08/31/2025 3:30 PM EST Office Visit [facility] OPTOMETRY 267 [place] [address] TarBritt burks, OD 267 [place] [address] documented as of this encounter Visit Diagnoses Not on filedocumented in this encounter Additional Health Concerns Assessment Noted Time PHQ-9 Depression Total Score: 18 023 3:56 PM EDT documented as of this encounter Care Teams Order Management Specialist Relationship Specialty Start Date End Date Ligia Becerra MD [address] [place] [address] PCP - General Family Medicine 07/22/22 Jair Pro MD [address] [place] [address] Urology 07/24/24 Tim Herrera [address] [place] [address] Neurosurgery 07/24/24 Trung Slade MD [address] 3rd [place] [address] Gastroenterology 10/19/24 Chucho Sexton [facility] Case Management 06/03/25 documented as of this encounter
--- OUTSIDE RECORDS SUMMARY | 2025-07-27 18:46 | XMS_ITS | Encounter Summary ---
Author Organization [employer] Address [address] 7t [place] [address] Care Team Providers Care Drill Press Tender Name Role Phone Mariam, Ligia CABA Primary Care Provider +1- [phone] Jair Pro MD Unavailable [phone] Tim Herrera Unavailable Trung Slade MD Unavailable [phone] Reason for Visit * Reason Comments Med Refill Encounter Details Date Type Department Care Team (Late st Contact Info) Description 10/18/2024 Refill [facility] [address] [place] [address] [phone] Name, MD Joselo [address] [place], [place] [phone] Social History Tobacco Use Types Packs/Day Years [...] 08/31/2025 3:30 PM EST Office Visit [facility] OPTOMETRY 267 [place] [address] Britt Zurita, OD 267 [place] [address] documented as of this encounter Visit Diagnoses Not on filedocumented in this encounter Additional Health Concerns Assessment Noted Time PHQ-9 Depression Total Score: 3 03/18/20 24 11:59 AM EDT documented as of this encounter Care Teams Drill Press Tender Relationship Specialty Start Date End Date Ligia Becerra MD 230 [place] [address] PCP - General Family Medicine 07/22/22 Jair Pro MD [address] [place] [address] Urology 07/24/24 Tim Herrera [address] [place] [address] Neurosurgery 07/24/24 Trung Slade MD [address] 3rd [place] [address] Gastroenterology 10/19/24 Chucho Sexton [facility] Case Management 06/03/25 documented as of this encounter
--- OUTSIDE RECORDS SUMMARY | 2025-07-27 18:46 | XMS_ITS | Encounter Summary ---
Author Organization [employer] Address [address] 7t [place] [address] Care Team Providers Care Satin Finisher Name Role Phone Ligia Becerra MD Primary Care Provider +1- [phone] Jair Pro MD Unavailable Tim Herrera Unavailable [phone] Trung Slade MD Unavailable [phone] Reason for Visit * Reason Onset Date Comments ER Follow-up 10/14/2023 Encounter Details Date Type Department Care Team (Late st Contact Info) Description 10/14/2023 Telephone [facility] MEDICINE 230 [place], [place] [phone] Ligia Becerra MD 230 [place], [place] [phone] ER Follow-up Social History Tobacco Use Types [...] from Pt calling to inform went to [facility] yesterday 10/13/23 . Informs was prescribed medication but was sent to the incorrect pharmacy and pt does not have transportation. Pt does not know name ofmed . Please call pt to clarify . Note below taken from [facility] discharge summery medication in question is oxycodone, will send message to PCP to advise. Reevaluation #3: 10/14/23 14:55 received phone call from patient via historical interpreter. Patient stating that oxycodone prescription was sent to incorrect pharmacy. Upon review, appears prescription was rejected. Initial order canceled. New prescription for 4 tabs of oxycodone 5 mg sent to [facility] in [place]. * Telephone Encounter - Yareli Billingsley - 10/14/2023 12:41 PM EST TC from Pt calling to inform went to [facility] yesterday 10/13/23 . Informs was prescribed medication but was sent to the incorrect pharmacy and pt does not have transportation. Pt does not know name ofmed . Please call pt to clarify . documented in this encounter Plan of Treatment Upcoming Encounters Date Type Department Care Team (Late st Contact Info) Description 08/31/2025 3:30 PM EST Office Visit [facility] OPTOMETRY 267 [place] [address] TarBritt burks, OD 267 [place] [address] documented as of this encounter Visit Diagnoses Not on filedocumented in this encounter Additional Health Concerns Assessment Noted Time PHQ-9 Depression Total Score: 18 023 3:56 PM EDT documented as of this encounter Care Teams Satin Finisher Relationship Specialty Start Date End Date Ligia Becerra MD 230 [place] [address] PCP - General Family Medicine 07/22/22 Jair Pro MD [address] [place] [address] Urology 07/24/24 Tim Herrera [address] [place] [address] Neurosurgery 07/24/24 Trung Slade MD [address] 3rd [place] [address] Gastroenterology 10/19/24 Chucho Sexton [facility] Case Management 06/03/25 documented as of this encounter
--- OUTSIDE RECORDS SUMMARY | 2025-07-27 18:46 | XMS_ITS | Encounter Summary ---
Author Organization [employer] Address [address] 7t [place] [address] Care Team Providers Care Benefits Specialist Recruiter Name Role Phone Ligia Becerra MD Primary Care Provider +1- [phone] Jair Pro MD Unavailable [phone] Tim Herrera Unavailable Trung Slade MD Unavailable [phone] Encounter Details Date Type Department Care Team (Late st Contact Info) Description 08/13/2022 Orders Only [facility] MEDICINE 230 [place], [place] [phone] Ligia Becerra MD 230 [place], [place] [phone] Social History Tobacco Use Types Packs/Day Years [...] 08/31/2025 3:30 PM EST Office Visit [facility] OPTOMETRY [address] [place] [address] Britt Zurita, OD [address] [place] [address] documented as of this encounter Visit Diagnoses Not on filedocumented in this encounter Care Teams Benefits Specialist Recruiter Relationship Specialty Start Date End Date Ligia Becerra MD 230 [place] [address] PCP - General Family Medicine 07/22/22 Jair Pro MD [address] [place] [address] Urology 07/24/24 Tim Herrera [address] [place] [address] Neurosurgery 07/24/24 Trung Slade MD [address] 3rd [place] [address] Gastroenterology 10/19/24 [facility]25 documented as of this encounter
--- OUTSIDE RECORDS SUMMARY | 2025-07-27 18:46 | XMS_ITS | Encounter Summary ---
Author Organization [employer] Address [address] 7t [place] [address] Care Team Providers Care Locate Technician Name Role Phone Ligia Becerra MD Primary Care Provider [phone]- [phone] Jair Pro MD Unavailable [phone] Tim Herrera Unavailable [phone] Trung Slade MD Unavailable [phone] Reason for Visit * Reason Onset Date Comments Med Refill 07/18/2023 Encounter Details Date Type Department Care Team (Late st Contact Info) Description 07/18/2023 Telephone [facility] MEDICINE 230 [place], [place] [phone] Ligia Becerra MD 230 [place], [place] [phone] Med Refill Social History Tobacco Use Types [...] Description 08/31/2025 3:30 PM EST Office Visit [facility] OPTOMETRY 267 [place], [place] [phone] Britt Zurita, OD 267 [place] [address] documented as of this encounter Visit Diagnoses Not on filedocumented in this encounter Additional Health Concerns Assessment Noted Time PHQ-9 Depression Total Score: 18 023 3:56 PM EDT documented as of this encounter Care Teams Locate Technician Relationship Specialty Start Date End Date Ligia Becerra MD 230 [place] [address] PCP - General Family Medicine 07/22/22 Jair Pro MD [address] [place] [address] Urology 07/24/24 Tim Herrera [address] [place] [address] Neurosurgery 07/24/24 Trung Slade MD [address] 3rd [place] [address] Gastroenterology 10/19/24 [facility] 06/[facility]/25 documented as of this encounter
--- OUTSIDE RECORDS SUMMARY | 2025-07-27 18:46 | XMS_ITS | Encounter Summary ---
Author Organization [employer] Address [address] 7t [place] [address] Care Team Providers Care Brand Advisor Name Role Phone Ligia Becerra MD Primary Care Provider +1- [phone] Jair Pro MD Unavailable [phone] Tim Herrera Unavailable [phone] Trung Slade MD Unavailable [phone] Encounter Details Date Type Department Care Team (Late st Contact Info) Description 03/18/2023 Telephone [facility] MEDICINE 230 [place], [place] [phone] Ligia Becerra MD 230 [place], [place] [phone] Social History Tobacco Use Types Packs/Day Years [...] Assessment Author Patient Health Questionnaire-2 Score 6 03/11 3:56 PM Fred Echavarria * How difficult have these problems made it for you to do your work, take care of things at home, or get along with other people? Answer Date of Assessment Author Somewhat difficult 03/20/2023 3:56 PM Fred Reid * Over the past 2 weeks, how [...] from pt states he spoke with a fire manager and was given the number [phone]. Third Grade Teacher did not seeany documentation. Please contact pt at [phone] documented in this encounter Plan of Treatment Upcoming Encounters Date Type Department Care Team (Late st Contact Info) Description 08/31/2025 3:30 PM EST Office Visit [facility] OPTOMETRY 267 [place] [address] TarBritt burks, OD 267 [place] [address] documented as of this encounter Visit Diagnoses Not on filedocumented in this encounter Care Teams Brand Advisor Relationship Specialty Start Date End Date Mariam, MD Ligia 230 [place] [address] PCP - General Family Medicine 07/22/22 Jair Pro MD [address] [place] [address] Urology 07/24/24 Tim Herrera [address] [place] [address] Neurosurgery 07/24/24 Trung Slade MD [address] 3rd [place] [address] Gastroenterology 10/19/24 Chucho Sexton [facility] Case Management 06/03/25 documented as of this encounter
--- OUTSIDE RECORDS SUMMARY | 2025-07-27 18:46 | XMS_ITS | Encounter Summary ---
Author Organization [employer] Address [address] 7t [place] [address] Care Team Providers Care Sewing Pattern Layout Technician Name Role Phone Ligia Becerra MD Primary Care Provider Jair Pro MD Unavailable Tim Herrera Unavailable [phone] Trung Slade MD Unavailable [phone] Encounter Details Date Type Department Care Team (Late st Contact Info) Description 02/04/2023 Abstract [facility] MEDICINE 230 [place], [place] [phone] Ligia Becerra MD 230 [place], [place] [phone] Social History Tobacco Use Types Packs/Day Years [...] Description 08/31/2025 3:30 PM EST Office Visit [facility] OPTOMETRY [address] [place] [address] Britt Zurita, OD [address] [place] [address] documented as of this encounter Visit Diagnoses Not on filedocumented in this encounter Care Teams Sewing Pattern Layout Technician Relationship Specialty Start Date End Date Ligia Becerra MD 230 [place] [address] PCP - General Family Medicine 07/22/22 Jair Pro MD [address] [place] [address] Urology 07/24/24 Tim Herrera [address] [place] [address] Neurosurgery 07/24/24 Trung Slade MD [address] 3rd [place] [address] Gastroenterology 10/19/24 Chucho Sexton [facility] Case Management 06/03/25 documented as of this encounter
--- OUTSIDE RECORDS SUMMARY | 2025-07-27 18:46 | XMS_ITS | Encounter Summary ---
Author Organization [employer] Address [address] 7t [place] [address] Care Team Providers Care Art Consultant Name Role Phone Ligia Becerra MD Primary Care Provider +[phone]- [phone] Jair Pro MD Unavailable Tim Herrera Unavailable [phone] Trung Slade MD Unavailable [phone] Reason for Visit * Reason Onset Date Comments returnin call back 09/17/2022 Encounter Details Date Type Department Care Team (Late st Contact Info) Description 09/17/2022 Telephone [facility] MEDICINE 230 [place], [place] [phone] Ligia Becerra MD 230 [place], [place] [phone] returnin call back Social History Tobacco Use [...] PM EST Maria R Becerra MD * How difficult have these problems made it for you to do your work, take care of things at home, or get along with other people? Answer Date of Assessment Author Somewhat difficult 09/17/2022 3:14 PM EST Ligia Cartagena MD documented as of this encounter Miscellaneous Notes * Telephone Encounter - Don Cerrato - 09/17/2022 1:25 PM EST Tc from pt returning phone call, fiction and nonfiction prose writer see's that provider would like to schedule a 30 min appt inperson with pt. Please contact pt at [phone] documented in this encounter Plan of Treatment Upcoming Encounters Date Type Department Care Team (Late st Contact Info) Description 08/31/2025 3:30 PM EST Office Visit [facility] OPTOMETRY 267 [place] [address] Britt Zurita, OD 267 [place] [address] documented as of this encounter Visit Diagnoses Not on filedocumented in this encounter Care Teams Art Consultant Relationship Specialty Start Date End Date Ligia Becerra MD [address] [place] [address] PCP - General Family Medicine 07/22/22 Jair Pro MD [address] [place] [address] Urology 07/24/24 Tim Herrera [address] [place] [address] Neurosurgery 07/24/24 Trung Slade MD [address] 3rd [place] [address] Gastroenterology 10/19/24 Chucho [facility] Case Management 06/03/25 documented as of this encounter
--- OUTSIDE RECORDS SUMMARY | 2025-07-27 18:46 | XMS_ITS | Encounter Summary ---
Author Organization [employer] Address [address] 7t [place] [address] Care Team Providers Care Vegetable Packer Name Role Phone Ligia Becerra MD Primary Care Provider [phone]- [phone] Jair Pro MD Unavailable Tim Herrera Unavailable Trung Slade MD Unavailable [phone] Encounter Details Date Type Department Care Team (Late st Contact Info) Description 11/01/2022 Orders Only [facility] MEDICINE 230 [place], [place] [phone] Ligia Becerra MD 230 [place], [place] [phone] Bilateral deafness (Primary Dx) Social History Tobacco [...] PM EST Office Visit [facility] [address] [place] [address] Britt Zurita, OD 267 [place] [address] documented as of this encounter Visit Diagnoses Diagnosis Bilateral deafness- Primary Unspecified hearing loss documented in this encounter Care Teams Vegetable Packer Relationship Specialty Start Date End Date Ligia Becerra MD 230 [place] [address] PCP - General Family Medicine 07/22/22 Jair Pro MD [address] [place] [address] Urology 07/24/24 Tim Herrera [address] [place] [address] Neurosurgery 07/24/24 Trung Slade MD [address] 3rd [place] [address] Gastroenterology 10/19/24 [facility] 06/03/25 documented as of this encounter
--- OUTSIDE RECORDS SUMMARY | 2025-07-27 18:46 | XMS_ITS | Encounter Summary ---
Author Organization [employer] Address [address] 7t [place] [address] Care Team Providers Care Table Machine Operator Name Role Phone Ligia Becerra MD Primary Care Provider [phone]- [phone] Jair Pro MD Unavailable Tim Herrera Unavailable [phone] Trung Slade MD Unavailable [phone] Reason for Visit * Reason Onset Date Comments Call back request 08/14/2023 Encounter Details Date Type Department Care Team (Late st Contact Info) Description 08/14/2023 Telephone [facility] MEDICINE 230 [place], [place] [phone] Ligia Becerra MD 230 [place], [place] [phone] Call back request Social History Tobacco Use [...] 3:00 PM EST Tc from pt via [employer] interpretor #[id number] requesting call back wanting to speak with provider. Pt didn't want to information regarding the call, she stated pcp knows what's going on. Please contact pt at [phone]. documented in this encounter Plan of Treatment Upcoming Encounters Date Type Department Care Team (Late st Contact Info) Description 08/31/2025 3:30 PM EST Office Visit [facility] OPTOMETRY 267 [place] [address] TarBritt burks, OD 267 [place] [address] documented as of this encounter Visit Diagnoses Not on filedocumented in this encounter Additional Health Concerns Assessment Noted Time PHQ-9 Depression Total Score: 18 023 3:56 PM EDT documented as of this encounter Care Teams Table Machine Operator Relationship Specialty Start Date End Date Ligia Becerra MD [address] [place] [address] PCP - General Family Medicine 07/22/22 Jair Pro MD [address] [place] [address] Urology 07/24/24 Tim Herrera [address] [place] [address] Neurosurgery 07/24/24 Trung Slade MD [address] 3rd [place] [address] Gastroenterology 10/19/24 Chucho Sexton [facility] Case Management 06/03/25 documented as of this encounter
--- OUTSIDE RECORDS SUMMARY | 2025-07-27 18:46 | XMS_ITS | Encounter Summary ---
Author Organization [employer] Address [address] 7t [place] [address] Care Team Providers Care High School Mathematics Teacher Name Role Phone Ligia Becerra MD Primary Care Provider + [phone] Jair Pro MD Unavailable [phone] Tim Herrera Unavailable [phone] Trung Slade MD Unavailable [phone] Encounter Details Date Type Department Care Team (Latest Contact Info) Description 06/19/2022 Abstract [facility] CONVERSIONS Dental, Provider, DDS Social History [...] Description 08/31/2025 3:30 PM EST Office Visit [facility] OPTOMETRY 267 [place], [place] [phone] Britt Zurita OD 267 [place], [place] [phone] documented as of this encounter Visit Diagnoses Not on filedocumented in this encounter Care Teams High School Mathematics Teacher Relationship Specialty Start Date End Date Ligia Becerra MD [address] [place] [address] PCP - General Family Medicine 07/22/22 Jair Pro MD [address] [place] [address] Urology 07/24/24 Tim Herrera [address] [place] [address] Neurosurgery 07/24/24 Trung Slade MD [address] 3rd [place] [address] Gastroenterology 10/19/24 [facility]ucho Sexton [facility] Case Management 06/03/25 documented as of this encounter
--- OUTSIDE RECORDS SUMMARY | 2025-07-27 18:46 | XMS_ITS | Encounter Summary ---
Author Organization [employer] Address [address] [place] [address] Care Team Providers Care Merchandise Shopper Name Role Phone Ligia Becerra MD Primary Care Provider [phone] Jair Pro MD Unavailable [phone] Tim Herrera Unavailable Trung Slade MD Unavailable [phone] Reason for Visit * Reason Onset Date Comments Nurse Triage 08/15/2023 Encounter Details Date Type Department Care Team (Late st Contact Info) Description 08/15/2023 Telephone [facility] MEDICINE [address] [place], [place] [phone] Ligia Becerra MD [address] [place], [place] [phone] Nurse Triage Social History Tobacco Use Types [...] Description 08/31/2025 3:30 PM EST Office Visit [facility] OPTOMETRY [address] [place] [address] Britt Zurita, OD [address] [place] [address] documented as of this encounter Visit Diagnoses Not on filedocumented in this encounter Additional Health Concerns Assessment Noted Time PHQ-9 Depression Total Score: 18 023 3:56 PM EDT documented as of this encounter Care Teams Merchandise Shopper Relationship Specialty Start Date End Date Ligia Becerra MD [address] [place] [address] PCP - General Family Medicine 07/22/22 Jair Pro MD [address] [place] [address] Urology 07/24/24 Tim Herrera [address] [place] [address] Neurosurgery 07/24/24 Trung Slade MD [address]rd [place] [address] Gastroenterology 10/19/24 Chucho Sexton [facility] Case Management 06/03/25 documented as of this encounter
--- OUTSIDE RECORDS SUMMARY | 2025-07-27 18:46 | XMS_ITS | Encounter Summary ---
Author Organization [employer] Address [address] [place] [address] Care Team Providers Care Varnisher Name Role Phone Ligia Becerra MD Primary Care Provider [phone] Jair Pro MD Unavailable [phone] Tim Herrera Unavailable Trung Slade MD Unavailable [phone] Reason for Visit * Reason Onset Date Comments PT1 10/06/2023 Encounter Details Date Type Department Care Team (Late st Contact Info) Description 10/06/2023 Telephone [facility] MEDICINE [address] [place], [place] [phone] Ligia Becerra MD [address] [place], [place] [phone] PT1 Social History Tobacco Use Types Packs/Day [...] 3 PM Visits: 5 per month Address: [address] [place] [address] Facility: [facility] Wheel Chair: no, walker Gallery Host Needed: yes Date: n/a Time: n/a Visits: 5 per month Address: [address] [place] [address] Facility: [facility] Wheel Chair: No, walker Gallery Host Needed: yes documented in this encounter Plan of Treatment Upcoming Encounters Date Type Department Care Team ([facility] Contact Info) Description 08/31/2025 3:30 PM EST Office Visit [facility] OPTOMETRY [address] [place] [address] Britt Zurita, OD [address] [place] [address] documented as of this encounter Visit Diagnoses Not on filedocumented in this encounter Additional Health Concerns Assessment Noted Time PHQ-9 Depression Total Score: 18 023 3:56 PM EDT documented as of this encounter Care Teams Varnisher Relationship Specialty Start Date End Date Ligia Becerra MD [address] [place] [address] PCP - General Family Medicine 07/22/22 Jair Pro MD [address] [place] [address] Urology 07/24/24 Tim Herrera [address] [place] [address] Neurosurgery 07/24/24 Trung Slade MD [address] [place] [address] Gastroenterology 10/19/24 Chucho Sexton [facility] Case Management 06/03/25 documented as of this encounter
[2025-07-28 01:57] LABS: CT PCR Urine NOT DETECTED (Not Detect.); NG PCR Urine NOT DETECTED (Not Detect.)
[2025-07-28 04:11] LABS: HIV Num 1 0.06 S/CO (0.00-0.99); ~HepC Num1 0.08 S/CO (0.00-0.79); ~Hepatitis C Antibody Nonreactive (Nonreactive)
[2025-07-28 04:54] LABS: Syphilis Screen Nonreactive (Nonreactive)
== END 2025-07-27 14:03 | disposition home or self-care (01) ==
LOC: HO.HHCL 14:02
PROVIDERS: PCP Family Medicine; Visit Provider Family Medicine
DX: I10 Essential (primary) hypertension (principal); E78.5 Hyperlipidemia, unspecified; E66.812 Obesity, class 2; D47.2 Monoclonal gammopathy; E55.9 Vitamin D deficiency, unspecified; Z13.1 Encounter for screening for diabetes mellitus; Z11.4 Encounter for screening for human immunodeficiency virus [HIV]; Z20.2 Contact with and (suspected) exposure to infections with a predominantly sexual mode of transmission
CPT/HCPCS: 80048; 80061; 80076; 82043; 82306; 82570; 83036; 85025; 86780; 86803; 87389; 87491; 87591